=== PATIENT | female | born 1950 | race Caucasian/White ===

== ENCOUNTER 2016-09-14 00:42 | Emergency (ER) | payer OTHER ==
[2016-09-14 01:06] VITALS: BP 143/71; BMI 19.3
[2016-09-14] MEDS ORDERED: DEMEROL INJ IM ONE (01:13)
[2016-09-14] MEDS ORDERED: ZOFRAN INJ 4 MG VIAL IM ONE (01:13)
[2016-09-14] MEDS ORDERED: PHENERGAN INJ 25 MG ONE ×2 (01:14→01:15)
[2016-09-14] MEDS ORDERED: DEMEROL INJ ONE (01:14)
[2016-09-14] MEDS ORDERED: ZOFRAN INJ 4 MG VIAL ONE (01:17)
--- NOTE | 2016-09-14 01:17 | DR.GENAD ---
HPI - PCP Primary Care Physician: mark - HPI Comment HPI Comment: 66 y/o w/RA w/epigastric pain, n/v/d for the past day; dx'ed w/ H.pylori as below; unable to tolerate the medications and pain so bad, she had to come here; feels febrile w/chills; no wt loss. She has script for protonix, flagyl and cipro. She was scheduled for colonoscopy earlier this year but had to cxl d/t shingles; she has not had a fup. - Complaint/Symptoms Chief Complaint:: pt seen in ER in [place] today dx with H-pylori pt given protonix iv pt c/o abd pain - Source History Provided: Patient - Mode of Arrival Mode of Arrival: Ambulatory - Timing Onset of Chief Complaint: 09/13/16 PMH - PMH Past Medical History: Yes Past Medical History: Arthritis (rheumatoid) Past Surgical History: Yes Surgical History: Tonsillectomy - Family History History of Family Medical Conditions: Yes Family Medical History: Heart Failure - Social History Does any household member use tobacco: No Alcohol Use: None Do you use any recreational Drugs:: No Lives With: Family Lives Where: Home - infectious screening In the last 2 months have you had wt loss of >10#?: NO Have you had fever, night sweats or hemotysis?: No Have you traveled outside the country in the last 6 months?: No Isolation: Standard ROS - Review of Systems Constitutional: Chills, Fever, Malaise, Fatigue Respiratoy: No Symptoms Reported Cardiovascular: No Symptoms Reported Gastrointestinal/Abdominal: See HPI Neurological: No Symptoms Reported PE - Vital Signs Vitals: Temperature 98.4 F Pulse Rate 77 Respiratory Rate 18 Blood Pressure [Right Arm] 146/67 Blood Pressure [Left Arm] 131/63 Blood Pressure 143/71 O2 Sat by Pulse Oximetry 98 - General Limitations: No Limitations General Appearance: Alert, Other (appears uncomfortable) - Neck Neck Exam: Normal Inspection - Chest Chest Inspection: Normal Inspection - Respiratory Respiratory Exam: Normal Lung Sounds Bilat Respiratory Exam: Bilateral Clear to Auscultation - Cardiovascular Cardiovascular Exam: Regular Rate, Normal Rhythm - Abdominal Exam Abdominal Exam: Normal Inspection, Normal Bowel Sounds, Soft, Tenderness Abdominal Tenderness: Epigastrium, Moderate - Extremities Extremities Exam: Full ROM - Neurologic Neurological Exam: Alert Course - Reevaluation 1st: Improved ROR - Labs Reviewed Laboratory Results Reviewed?: Yes ([address]: wbc 9.8, h. pylori +, cmp benign) Laboratory: Amylase 46 Units/L (25-115) 09/14/16 01:32 Lipase 106 Units/L (73-393) 09/14/16 01:32 - XRAY XRAY Interpreted by: Radiologist (ct: thickening at gastric antrum; cannot r/o neoplasm/gastritis) XRAY Findings: Charles: abd series benign - Diagnosis Discharge Problem: Helicobacter pylori (H. pylori) infection, Abnormal CT of the abdomen Abdominal pain Qualifiers: Abdominal location: epigastric Qualified Code(s): R10.13 - Epigastric pain - Discharge Plan Disposition: HOME, SELF-CARE Condition: Stable Prescriptions: Hydrocodone-Acet 5 mg/325 mg [NORCO 5 MG/325 MG *] 1 tab PO Q6H PRN #12 tab PRN Reason: Pain Ondansetron [Zofran Odt] 4 mg PO Q8H PRN #12 tab PRN Reason: Nausea/Vomiting - Follow ups/Referrals Follow ups/Referrals: FRANKO ROJAS [STAFF PHYSICIAN] - 3 days - Instructions Instructions: Gastritis, Adult, [id number] Additional Instructions: stay hydrated take zofran before taking abx for H. pylori take antibiotics as previously written
[2016-09-14 01:49] LABS: AMYLASE 46 Units/L (25-115); LIPASE 106 Units/L (73-393)
[2016-09-14] MEDS ORDERED: NS 100 ML IV 100 ML IV ONE (03:35)
--- NOTE | 2016-09-14 04:22 | CT ---
CT abdomen with contrast Indication: Epigastric pain Technique: Helical images through the abdomen without IV contrast. Coronal and sagittal reformats pr ovided. Oral contrast also given. Comparison: May 15, 2016 CT. Findings: Show limited images through lower chest show scarring and dependent atelectasis. Heart siz e is prominent. Review of bone windows shows no destructive osseous lesion. Abdomen: Scattered hepatic hypodensities are compatible with cyst. The liver, spleen, pancreas and a drenal glands are normal. Vascular plaque is noted. Stomach shows wall thickening at the gastric ant rum and hyper enhancement. Remaining bowel loops appear normal. Appendix seen is normal. The kidneys are normal. Impression: 1. Wall thickening and hyper enhancement of the gastric antrum with narrowing. Gastritis/ulcer disea se is likely. Underlying neoplasm needs to be excluded. Nonemergent endoscopic followup after resolu tion of acute symptoms recommended. 2. Vascular plaque, and other incidental findings as above. Reported By:
== END 2016-09-14 04:41 | disposition home or self-care (01) ==
LOC: ER 00:42
DX: B96.81 Helicobacter pylori [H. pylori] as the cause of diseases classified elsewhere (principal); R93.5 Abnormal findings on diagnostic imaging of other abdominal regions, including retroperitoneum; R10.13 Epigastric pain
CPT/HCPCS: 36415; 74160; 82150; 83690; 96365; 96372; 99283; A4222; J2175; J2405; J2550

== ENCOUNTER 2016-10-29 11:15 | Day surgery (SDC) | payer OTHER ==
[2016-10-29] MEDS ORDERED: D5 LR 1000 ML 1,000 ML IV ONE (11:24)
[2016-10-29] MEDS ORDERED: DIPRIVAN VIAL 20 ML ONE (12:34)
[2016-10-29 12:54] VITALS: BP 103/57
== END 2016-10-29 12:55 | disposition home or self-care (01) ==
LOC: SURG1 11:15
PROVIDERS: ATTEND Internal Medicine Gastroenterology
PROC: 0DB88ZX Excision of Small Intestine, Via Natural or Artificial Opening Endoscopic, Diagnostic (ICD-10-PCS; principal; 2016-10-29 17:15)
PROC: 0DB68ZX Excision of Stomach, Via Natural or Artificial Opening Endoscopic, Diagnostic (ICD-10-PCS; principal; 2016-10-29 17:15)
PROC: 0DJ08ZZ Inspection of Upper Intestinal Tract, Via Natural or Artificial Opening Endoscopic (ICD-10-PCS; principal; 2016-10-29 17:15)
DX: R10.13 Epigastric pain (principal); R11.2 Nausea with vomiting, unspecified; R93.5 Abnormal findings on diagnostic imaging of other abdominal regions, including retroperitoneum; K25.9 Gastric ulcer, unspecified as acute or chronic, without hemorrhage or perforation; K20.8 Other esophagitis; K21.9 Gastro-esophageal reflux disease without esophagitis
CPT/HCPCS: A4217; J3490; J7120

== ENCOUNTER 2016-12-10 07:12 | Day surgery (SDC) | payer OTHER ==
[2016-12-10] MEDS ORDERED: D5 LR 1000 ML 1,000 ML IV ONE (07:36)
[2016-12-10] MEDS ORDERED: DIPRIVAN VIAL 20 ML ONE (08:49)
[2016-12-10 10:13] VITALS: BP 124/62
== END 2016-12-10 09:40 | disposition home or self-care (01) ==
LOC: SURG1 07:12
PROVIDERS: ATTEND Internal Medicine Gastroenterology
PROC: 0DJD8ZZ Inspection of Lower Intestinal Tract, Via Natural or Artificial Opening Endoscopic (ICD-10-PCS; principal; 2016-12-10 09:00)
PROC: 0DBN8ZX Excision of Sigmoid Colon, Via Natural or Artificial Opening Endoscopic, Diagnostic (ICD-10-PCS; principal; 2016-12-10 09:00)
DX: Z12.11 Encounter for screening for malignant neoplasm of colon (principal); K57.30 Diverticulosis of large intestine without perforation or abscess without bleeding; K63.5 Polyp of colon; K64.0 First degree hemorrhoids; D12.5 Benign neoplasm of sigmoid colon
CPT/HCPCS: A4217; J3490; J7120

== ENCOUNTER 2017-04-29 09:31 | Day surgery (SDC) | payer OTHER ==
[2017-04-29] MEDS ORDERED: D5 LR 1000 ML 1,000 ML IV ONE (09:42)
[2017-04-29] MEDS ORDERED: DIPRIVAN VIAL 20 ML ONE (10:54)
[2017-04-29 12:28] VITALS: BP 115/72
== END 2017-04-29 11:40 | disposition home or self-care (01) ==
LOC: SURG1 09:31
PROVIDERS: ATTEND Internal Medicine Gastroenterology
PROC: 0DB68ZX Excision of Stomach, Via Natural or Artificial Opening Endoscopic, Diagnostic (ICD-10-PCS; principal; 2017-04-29 13:45)
PROC: 0DJ08ZZ Inspection of Upper Intestinal Tract, Via Natural or Artificial Opening Endoscopic (ICD-10-PCS; principal; 2017-04-29 13:45)
PROC: 0D757ZZ Dilation of Esophagus, Via Natural or Artificial Opening (ICD-10-PCS; principal; 2017-04-29 13:45)
DX: K25.9 Gastric ulcer, unspecified as acute or chronic, without hemorrhage or perforation (principal); R10.13 Epigastric pain; K21.9 Gastro-esophageal reflux disease without esophagitis; K22.2 Esophageal obstruction; K31.89 Other diseases of stomach and duodenum; K29.60 Other gastritis without bleeding
CPT/HCPCS: A4217; J3490; J7120

== ENCOUNTER 2018-12-13 20:34 | Inpatient (IN) ==
[2018-12-13 20:53] VITALS: BMI 16.6
--- NOTE | 2018-12-13 22:08 | DR.NAUSEAF ---
HPI Time Seen Time Seen by Provider: 12/13/18 22:07 Primary Care Physician Primary Care Physician: NAVDEEP Complaints Chief Complaint Doctors Comments: pt presented for generalized abdominal pain. She reports started 2d ago and has been gradual. The pain is achy lower abd and radiates round to right flank. she reports having some n/v and chills and worse with movement. Her last BM 2d ago w/o melena. Denies any cp, sob or fever. PMH of ruptured appy with drain, diverticulitis. She reports wt loss for the past few months. Chief Complaint:: PT C/O LOWER ABD PAIN FOR 2 DAYS WITH NAUSEA AND VOMITING Reviewed Nurses Notes Reviewed: Yes Source History Provided: Patient Mode of Arrival Mode of Arrival: Ambulatory Timing Onset of Chief Complaint: 12/11/18 Context History of: Abdominal Operation (appy abscess) Quality Quality: Food Particles; denies Bilious, Bloody and Coffee Grounds Associated Signs and Symptoms Abdominal Pain Quality: Cramping Abdominal Pain Location: RLQ and LLQ Symptoms: Abdominal Pain; denies Diarrhea, Melena and Fever PMH PMH Past Medical History: Yes Past Medical History: Arthritis Past Surgical History: Yes Surgical History: Appendectomy Family History History of Family Medical Conditions: Yes Family Medical History: Heart Failure Social History Does patient currently use any type of tobacco product: Yes Type of Tobacco Use: Cigarettes Does any household member use tobacco: Yes Alcohol Use: None Do you use any recreational Drugs:: No Lives With: Family Lives Where: Home infectious screening In the last 2 months have you had wt loss of >10#?: NO Have you had fever, night sweats or hemotysis?: No Have you traveled outside the country in the last 6 months?: No Isolation: Standard ROS Review of Systems Constitutional: Chills; negative Fever, Weakness and Loss of Appetite Eyes: negative Blurred Vision ENTM: negative Nose Congestion Respiratoy: negative Short of Breath Cardiovascular: negative Chest Pain, Edema and Palpitations Gastrointestinal/Abdominal: Abdominal Pain, Constipation, Nausea and Vomiting Genitourinary: negative Dysuria Neurological: negative Numbness and Weakness Musculoskeletal: negative Muscle Pain Integumentary: negative Rash Hematologic/Lymphatic: No Symptoms Reported; negative Easy Bleeding Endocrine: Unexplained Weight Loss Psychiatric: negative Depression All Other Systems: Reviewed and Negative PE Vital Signs Vitals: Temperature 98.8 F Pulse Rate [Left Brachial] 90 Pulse Rate 90 Respiratory Rate 16 Blood Pressure [Right Arm] 146/67 Blood Pressure [Left Arm] 94/50 Blood Pressure 121/56 O2 Sat by Pulse Oximetry 95 General Limitations: No Limitations General Appearance: Alert and In No Apparent Distress Head Head Exam: Normal Inspection, Atraumatic and Normocephalic Eyes Eye exam: Normal Appearance, PERRL and EOMI; negative Scleral Icterus ENT ENT Exam: Normal Exam, Normal Oropharynx and Mucous Membranes Moist Neck Neck Exam: Normal Inspection and Full ROM Respiratory Respiratory Exam: Normal Lung Sounds Bilat Respiratory Exam: Bilateral: Clear to Auscultation Cardiovascular Cardiovascular Exam: Regular Rate, Normal Rhythm and Normal Heart Sounds Abdominal Exam Abdominal Exam: Normal Inspection, Normal Bowel Sounds and Soft; negative Distention, Tenderness and Guarding Extremities Extremities Exam: Normal Inspection, Full ROM and Normal Capillary Refill; negative Tenderness and Edema Back Back Exam: Normal Inspection and Full ROM; negative (R) CVA Tenderness and (L) CVA Tenderness Neurologic Neurological Exam: Alert, Oriented X3 and Normal Gait Psychiatric Psychiatric Exam: Normal Affect and Normal Mood Skin Skin Exam: Warm, Dry, Intact and Normal Color MDM Differential Diagnosis Differential Diagnosis: Considerations may Include:: Bowel Obstruction and Gastritis Differential Diagnosis Comment: constipation COURSE Reevaluation 1st: Improved 2nd: Unchanged (pt reports lower abdominal pain at this time. Will given IV morphine. denies any nausea/vomiting) 3rd: Improved (improved with morning. Pt now febrile. Will give tylenol and start on flagyl. awaiting return call from Dr. Barry) Consultation Called: 01:13 Call Returned: 01:17 Consultation Comments: spoke to Dr. Osborn for SBO with infiltrative mass. Instructed to keep npo and will see in the morning. Spoke to Dr. Barry for admission. Agreed with plan and accepted admission. ROR Labs Reviewed Laboratory Results Reviewed?: Yes Result Diagrams: 12/13/18 22:27 12/13/18 22:27 Laboratory: WBC 12.0 X10^3/uL (3.6-10.0) H 12/13/18 22:27 RBC 4.49 X10^6/uL (3.5-5.4) 12/13/18 22:27 Hgb 12.8 g/dL (12.0-16.0) 12/13/18 22: Hct 37.8 % (36.0-47.0) 12/13/18 22: MCV 84.1 fL (80.0-100.0) 12/13/18 22: MCH 28.5 pg (27.0-34.0) 12/13/18: MCHC 33.9 g/dL (33.0-35.0) 12/13/18 22: RDW 16.4 % (11.6-16.5) 12/13/18: Plt Count 357 X10^3/uL (150.0-450.0) 12/13/18 22: MPV 6.9 fL (7.4-11.0) L 12/13/18 22: Neut % (Auto) 81.7 % (42.0-75.0) H 12/13/18: Lymph % (Auto) 6.9 % (21.0-51.0) L 12/13/18: [place] % (Auto) 11.1 % (0.0-13.0) 12/13/18: Eos % (Auto) 0.2 % (0.9-2.9) L 12/13/18 22: Baso % (Auto) 0.1 % (0.2-1.0) L 12/13/18: Neut # (Auto) 9.8 x10^3/uL (2.2-4.8) H 12/13/18 22: Lymph # (Auto) 0.8 X10^3/uL (1.3-2.9) L 12/13/18 22:27 [place] # (Auto) 1.3 x10^3/uL (0.3-0.8) H 12/13/18 22: Eos # (Auto) 0.0 x10^3/uL (0.0-0.2) 12/13/18: Baso # (Auto) 0.0 X10^3/uL (0.0-0.1) 12/13/18 22: Absolute Nucleated RBC 0.0 /100WBC 12/13/18 22: Sodium 129 mmol/L (136-145) L 12/13/18 22: Corrected Sodium TNP 12/13/18 22: Potassium 4.4 mmol/L (3.5-5.1) 12/13/18 22:27 Chloride 90 mmol/L (98-107) L 12/13/18 22:27 Carbon Dioxide 26.3 mmol/L (21-32) 12/13/18 22:27 BUN 23 mg/dL (7-18) H 12/13/18 22:27 Creatinine 0.77 mg/dL (0.55-1.02) 12/13/18 22:27 Est GFR (MDRD) Af Amer > 60 (>60) 12/13/18 22:27 Est GFR (MDRD) Non-Af > 60 (>60) 12/13/18 22:27 Glucose 105 mg/dL (65-99) H 12/13/18 22:27 Calcium 9.5 mg/dL (8.5-10.1) 12/13/18 22:27 Specimen Type Clean catch urine 12/13/18 22:45 Urine Color Yellow (YELLOW) 12/13/18 22:45 Urine Appearance Slightly hazy (CLEAR) 12/13/18 22:45 Urine pH 5.0 (5.0 - 8.0) 12/13/18 22:45 Ur Specific [place] 1.020 (1.000-1.030) 12/13/18 22:45 Urine Protein 1+ (NEGATIVE) 12/13/18 22:45 Urine Glucose (UA) Negative (NEGATIVE) 12/13/18 22:45 Urine Ketones 2+ (NEGATIVE) 12/13/18 22:45 Urine Occult Blood 5+ (NEGATIVE) 12/13/18 22:45 Urine Nitrite Positive (NEGATIVE) 12/13/18 22:45 Urine Bilirubin Negative (NEGATIVE) 12/13/18 22:45 Urine Urobilinogen Normal (NORMAL) 12/13/18 22:45 Ur Leukocyte Esterase 1+ (NEGATIVE) 12/13/18 22:45 Urine RBC 10-20 /HPF (NONE SEEN) 12/13/18 22:45 Urine WBC 3-5 /HPF (NONE SEEN) 12/13/18 22:45 Ur Squamous Epith Cells Rare /HPF (NEGATIVE) 12/13/18 22:45 Urine Bacteria 2+ /HPF (NEGATIVE) 12/13/18 22:45 Urine Yeast Rare /HPF (NEGATIVE) 12/13/18 22:45 Ur Culture Indicated? Yes/culture set up 12/13/18 22:45 Other Results Comments: WBC 12K with left shift CT a/p: SBO w/ TZ located at the large-walled infiltrative and aneurysmal mass within the small bowel of XRAY XRAY Interpreted by: Radiologist XRAY Findings: KUB dilated loops of bowel. Opioid Opioid Risk Tool Total: 0 Total Score Risk Category: Low Risk Copyright: [employer] predicting aberrant behaviors Diagnosis Discharge Problem: Small bowel obstruction, Hyponatremia Leukocytosis Qualifiers: Leukocytosis type: unspecified Qualified Code(s): D72.829 - Elevated white blood cell count, unspecified Instructions Forms: Excuse From Work
[2018-12-13] MEDS ORDERED: PHENERGAN INJ 25 MG IM ONE ×2 (22:17→22:38)
[2018-12-13 22:36] LABS: BASOPHILS % (AUTO) 0.1 % (0.2-1.0); EOSINOPHILS % (AUTO) 0.2 % (0.9-2.9); HEMATOCRIT 37.8 % (36.0-47.0); HEMOGLOBIN 12.8 g/dL (12.0-16.0); LYMPHOCYTES # (AUTO) 0.8 X10^3/uL (1.3-2.9); LYMPHOCYTES % (AUTO) 6.9 % (21.0-51.0); MEAN CORPUSCULAR HEMOGLOBIN 28.5 pg (27.0-34.0); MEAN CORPUSCULAR HGB CONC 33.9 g/dL (33.0-35.0); MEAN CORPUSCULAR VOLUME 84.1 fL (80.0-100.0); MEAN PLATELET VOLUME 6.9 fL (7.4-11.0); MONOCYTES # (AUTO) 1.3 x10^3/uL (0.3-0.8); MONOCYTES % (AUTO) 11.1 % (0.0-13.0); NEUTROPHILS # (AUTO) 9.8 x10^3/uL (2.2-4.8); NEUTROPHILS % (AUTO) 81.7 % (42.0-75.0); PLATELET COUNT 357 X10^3/uL (150.0-450.0); RED BLOOD COUNT 4.49 X10^6/uL (3.5-5.4); RED CELL DISTRIBUTION WIDTH 16.4 % (11.6-16.5)
[2018-12-13 22:39] LABS: BLOOD UREA NITROGEN 23 mg/dL (7-18); CALCIUM 9.5 mg/dL (8.5-10.1); CARBON DIOXIDE 26.3 mmol/L (21-32); CHLORIDE 90 mmol/L (98-107); CREATININE 0.77 mg/dL (0.55-1.02); SODIUM 129 mmol/L (136-145); eGFR NON BLACK RACES > 60 (>60)
[2018-12-13 23:00] LABS: BILIRUBIN,URINE NEGATIVE (NEGATIVE); BLOOD/HEMOGLOBIN,URINE 5+ (NEGATIVE); GLUCOSE, URINE NEGATIVE (NEGATIVE); KETONES,URINE 2+ (NEGATIVE); LEUKOCYTE ESTERASE ,URINE 1+ (NEGATIVE); NITRITES,URINE POSITIVE (NEGATIVE); PROTEIN,URINE 1+ (NEGATIVE); UROBILINOGEN,URINE NORMAL (NORMAL)
[2018-12-13 23:11] LABS: APPEARANCE,URINE SLIGHTLY HAZY (CLEAR); COLOR,URINE YELLOW (YELLOW)
[2018-12-13 23:12] LABS: BACTERIA,URINE 2+ /HPF (NEGATIVE); SQUAMOUS EPITHELIAL CELL,UR RARE /HPF (NEGATIVE); YEAST,URINE RARE /HPF (NEGATIVE)
[2018-12-13] MEDS ORDERED: NS 1000 ML 1,000 ML IV ONE (23:20)
[2018-12-13] MEDS ORDERED: NS 1000 ML 1,000 ML ONE (23:22)
[2018-12-13] MEDS ORDERED: NS 100 ML IV 100 ML ONE (23:46)
[2018-12-14] MEDS ORDERED: METHOTREXATE SODIUM PO SCH (01:30)
[2018-12-14] MEDS ORDERED: TYLENOL 325 MG TAB PO ONE ×2 (01:49→01:50)
[2018-12-14] MEDS ORDERED: LR 1000 ML IV 1,000 ML IV SCH (02:00)
[2018-12-14] MEDS: MORPHINE SULFATE INJ 2 MG INJ IVP PRN ×2 (02:18→21:31)
[2018-12-14] MEDS: FLAGYL IV PREMIX 500 MG BAG 500 MG/100 ML BAG IV SCH ×4 (02:21→21:30)
[2018-12-14] MEDS: ZOFRAN INJ 4 MG VIAL IVP PRN ×2 (02:21→21:31)
[2018-12-14 07:12] LABS: BASOPHILS % (AUTO) 0.2 % (0.2-1.0); EOSINOPHILS # (AUTO) 0.1 x10^3/uL (0.0-0.2); EOSINOPHILS % (AUTO) 1.2 % (0.9-2.9); HEMATOCRIT 33.1 % (36.0-47.0); HEMOGLOBIN 11.3 g/dL (12.0-16.0); LYMPHOCYTES # (AUTO) 1.3 X10^3/uL (1.3-2.9); LYMPHOCYTES % (AUTO) 16.2 % (21.0-51.0); MEAN CORPUSCULAR HEMOGLOBIN 28.5 pg (27.0-34.0); MEAN CORPUSCULAR HGB CONC 34.1 g/dL (33.0-35.0); MEAN CORPUSCULAR VOLUME 83.7 fL (80.0-100.0); MONOCYTES # (AUTO) 1.3 x10^3/uL (0.3-0.8); NEUTROPHILS # (AUTO) 5.3 x10^3/uL (2.2-4.8); NEUTROPHILS % (AUTO) 66.4 % (42.0-75.0); PLATELET COUNT 300 X10^3/uL (150.0-450.0); RED BLOOD COUNT 3.96 X10^6/uL (3.5-5.4); RED CELL DISTRIBUTION WIDTH 16.3 % (11.6-16.5)
[2018-12-14 07:14] LABS: BLOOD UREA NITROGEN 18 mg/dL (7-18); CALCIUM 8.6 mg/dL (8.5-10.1); CARBON DIOXIDE 25.3 mmol/L (21-32); CHLORIDE 99 mmol/L (98-107); CREATININE 0.67 mg/dL (0.55-1.02); SODIUM 135 mmol/L (136-145); eGFR NON BLACK RACES > 60 (>60)
[2018-12-14] MEDS ORDERED: LEXAPRO ONE (08:41)
[2018-12-14] MEDS ORDERED: ESCITALOPRAM OXALATE 5 MG PO SCH (09:00)
[2018-12-14] MEDS: LEXAPRO PO SCH ×2 (09:04→09:31)
[2018-12-14] MEDS: FOLIC ACID TAB 1 MG PO SCH ×2 (09:04→09:31)
[2018-12-14] MEDS: OSCAL+D or CALTRATE+D PO SCH ×2 (09:04→09:31)
[2018-12-14] MEDS ORDERED: XYLOCAINE 1 % (PLAIN) ONE (09:15)
[2018-12-14] MEDS ORDERED: DIPRIVAN VIAL ONE (09:15)
[2018-12-14] MEDS: NADOLOL PO SCH (09:29)
[2018-12-14] MEDS ORDERED: PHARMACY CONSULT - DOSE _____ XX SCH (10:00)
[2018-12-14] MEDS: CIPRO IV 400 MG PREMIX* 400 MG/200 ML IV.SOLN. IV SCH ×2 (12:34→21:30)
[2018-12-14] MEDS: LR 1000 ML IV 1,000 ML IV SCH ×3 (12:46→21:30)
[2018-12-14] MEDS ORDERED: XYLOCAINE-MPF 1% ONE (13:03)
[2018-12-14] MEDS ORDERED: DIPRIVAN VIAL 40 ML ONE (13:03)
[2018-12-14] MEDS ORDERED: STERILE WATER IRRIGATION ONE (14:12)
[2018-12-14] MEDS: DIFLUCAN 200 MG IV PREMIX* 200 MG/100 ML BAG IV SCH (14:47)
[2018-12-14] MEDS: PROTONIX INJ 40 MG VIAL IVP SCH (21:30)
--- NOTE | 2018-12-14 22:14 | DR.H&P ---
H&P - History & Physical for Day of: H&P Date: 12/14/18 - Chief Complaint Chief Complaint: ABDOMINAL PAIN - History of Present Illness History of Present Illness: IS A 68 YEAR OLD PATIENT OF OURS WHO PRESENTED TO THE HOSPITAL WITH REPORTS OF GENERALIZED ABDOMINAL PAIN. SHE REPORTS THAT PAIN STARTED APPROXIMATELY TWO DAYS AGO AND HAS PROGRESSIVELY GOTTEN WORSE. PAIN IS LOCATED IN THE LOWER ABDOMEN AND RAIDATES AROUND TO THE RIGHT FLANK. SHE ALSO REPORTS SOME NAUSEA, VOMITING, AND CHILLS. HER LAST BOWEL MOVEMENT WAS TWO DAYS AGO. PAST MEDICAL HISTORY IS SIGNIFICANT FOR A RUPTURED APPENDIX AND DIVERTICULITIS. SHE REPORTS WEIGHT LOSS WITHIN THE PAST FEW MONTHS. ON ARRIVAL, VITALS WERE 98.2-90-18-99%-121/56. LABS WERE OBTAINED. ABNORMAL LAB VALUES INCLUDE THE FOLLOWING: WBC 12.0, SODIUM 129, CHLORIDE 90, BUN 23, GLUCOSE 105. URINALYSIS REVEALED: WBC 3-5, RBC 10-20, LEUKOCYTES 1+, BACTERIA 2+, YEAST RARE, NITRITE POSITIVE. BLOOD AND URINE CLUTURES PENDING. AN ABDOMEN/PELVIS CT WAS OBTAINED AND REVEALED: SBO WITH TRANSITION ZONE LOCATED AT A LARGE THICK- WALLED INFILTRATIVE AND ANEURYSMAL MASS WITHIN THE SMALL BOWEL OF THE CENTRAL PELVIS, HIGHTLY CONCERNING FOR NEOPLASM. APPEARANCE MAY BE SEEN WITH SMALL BOWEL LYMPHOMA. NO INTRAPERITONEAL FREE AIR IS IDENTIFIED. WALL THICKENING OF THE DISTAL GASTRIC ANTRUM AND SIGMOID COLON MAY REFLECT ADDITIONAL FOCI OF LYMPHOMA. SHE WAS ADMITTED TO THE HOSPITAL FOR FURTHER EVALUATION AND TREATMENT OF SBO WITH ABDOMINAL MASS. SHE WAS STARTED ON LR AT 125ML/HR, IV DIFUCAN, IV CIPRO, AND IV FLAGYL. WE WILL RESUME HOME MEDS. WE PLAN TO CONSULT GENERAL SURGERY. OTHERWISE, WE WILL FOLLOW-UP WITH AM LABS AND CONTINUE TO MONITOR. - Past Medical History Past Medical History: Arthritis - Past Surgical History Surgical History: Appendectomy - Family History Family Medical History: Diabetes Mellitus, Heart Failure, Sudden Cardiac - Social History Does patient currently use any type of tobacco product: Yes Have you used tobacco products in the last 12 months: Yes Type of Tobacco Use: Cigarettes How many years tobacco product used: 40 Does any household member use tobacco: Yes Alcohol Use: None Drug Use: None Prescription drug monitoring program results: PDMP was not reviewed - Medications Home Medications: Penicillins Allergy (Verified 12/14/18 05:11) - Review of Systems Constitutional: See HPI, Chills, Other (WEIGHT LOSS ) Eyes: No Symptoms Reported ENT: No Symptoms Reported Respiratory: No Symptoms Reported Cardiovascular: No Symptoms Reported Gastrointestinal: See HPI, Nausea, Vomiting, Abdominal Pain Genitourinary: No Symptoms Reported Musculoskeletal: No Symptoms Reported Skin: No Symptoms Reported Neurological: Weakness - Physical Exam Vital Signs: Temperature 98.9 F Pulse Rate [Left Brachial] 77 Pulse Rate 90 Respiratory Rate 18 Blood Pressure [Right Arm] 146/67 Blood Pressure [Left Arm] 107/53 Blood Pressure 121/56 O2 Sat by Pulse Oximetry 97 Oriented: Normal Eyes: Normal Ear: Normal Nose: Normal Throat: Normal Respiratory: Diminished Throughout Cardiovascular: Normal : Normal Auscultation: Bowel Sounds: Decreased Palpation: Normal Tenderness: Diffuse, Moderate. negative: Rebound, Guarding, Rigidity Skin: Decreased Turgur Musculoskeletal: Normal Psychiatric: Normal Mood Description: Calm Affect: Normal Speech Pattern: Clear - Assessment/Plan (1) Small bowel obstruction Status: Acute Plan: ADMIT, NPO, IV ANTIBIOTICS, SURGICAL CONSULT, CONTINUE TO MONITOR (2) Abdominal mass Qualifiers: Abdominal location: unspecified location Qualified Code(s): R19.00 - Intra- abdominal and pelvic swelling, mass and lump, unspecified site Status: Acute Plan: IV ANTIBIOTICS, IV FLUIDS, SURGICAL CONSULT, CONTINUE TO MONITOR (3) Abdominal pain Qualifiers: Abdominal location: epigastric Qualified Code(s): R10.13 - Epigastric pain Status: Acute (4) Urinary tract infection Qualifiers: Urinary tract infection type: acute cystitis Hematuria presence: with hematuria Qualified Code(s): N30.01 - Acute cystitis with hematuria Status: Acute Plan: IV CIPRO, IV FLUIDS, CONTINUE TO MONITOR - Allergies Allergies/Adverse Reactions: Allergies Allergy/AdvReac Type Severity Reaction Status Date / Time Penicillins Allergy Verified 12/14/18 05:11
[2018-12-15] MEDS: LR 1000 ML IV 1,000 ML IV SCH ×4 (03:44→20:27)
[2018-12-15] MEDS: FLAGYL IV PREMIX 500 MG BAG 500 MG/100 ML BAG IV SCH ×2 (03:44→09:48)
[2018-12-15 05:18] LABS: BASOPHILS % (AUTO) 0.3 % (0.2-1.0); EOSINOPHILS # (AUTO) 0.2 x10^3/uL (0.0-0.2); EOSINOPHILS % (AUTO) 3.6 % (0.9-2.9); HEMATOCRIT 30.5 % (36.0-47.0); HEMOGLOBIN 10.2 g/dL (12.0-16.0); LYMPHOCYTES # (AUTO) 1.3 X10^3/uL (1.3-2.9); LYMPHOCYTES % (AUTO) 22.4 % (21.0-51.0); MEAN CORPUSCULAR HEMOGLOBIN 28.4 pg (27.0-34.0); MEAN CORPUSCULAR HGB CONC 33.6 g/dL (33.0-35.0); MEAN CORPUSCULAR VOLUME 84.6 fL (80.0-100.0); MEAN PLATELET VOLUME 7.3 fL (7.4-11.0); MONOCYTES # (AUTO) 0.9 x10^3/uL (0.3-0.8); MONOCYTES % (AUTO) 14.7 % (0.0-13.0); NEUTROPHILS # (AUTO) 3.5 x10^3/uL (2.2-4.8); PLATELET COUNT 278 X10^3/uL (150.0-450.0); RED CELL DISTRIBUTION WIDTH 16.6 % (11.6-16.5); WHITE BLOOD COUNT 5.9 X10^3/uL (3.6-10.0)
[2018-12-15 05:29] LABS: ALANINE AMINOTRANSFERASE < 6 Units/L (12-78); ALBUMIN 2.3 g/dL (3.4-5.0); ALKALINE PHOSPHATASE 73 Units/L (46-116); ASPARTATE AMINO TRANSFERASE 10 Units/L (15-37); BLOOD UREA NITROGEN 8 mg/dL (7-18); CALCIUM 8.2 mg/dL (8.5-10.1); CARBON DIOXIDE 25.6 mmol/L (21-32); CHLORIDE 103 mmol/L (98-107); COR CA(FOR HYPOALB) 9.6 mg/dL (8.5-10.1); SODIUM 140 mmol/L (136-145); eGFR NON BLACK RACES > 60 (>60)
[2018-12-15] MEDS ORDERED: POTASSIUM CHL 60 MEQ/NS 0.45% 500 ML IV PRN (06:18)
[2018-12-15] MEDS ORDERED: POTASSIUM CHL 40 MEQ/NS 0.45% 500 ML IV PRN (06:18)
[2018-12-15] MEDS ORDERED: POTASSIUM CHLORIDE LIQ 20 MEQ UDC PO PRN (06:18)
[2018-12-15] MEDS ORDERED: MICRO K EXTEN CAP 10 MEQ PO PRN (06:18)
[2018-12-15] MEDS ORDERED: K-RIDER 10 MEQ/NS 100 ML 10 MEQ/100 ML BAG IV ONE (06:38)
[2018-12-15] MEDS ORDERED: MAGNESIUM SULFATE 1 GRAM/100 mL PREMIX 1 G/100 ML BAG IV ONE (06:38)
[2018-12-15] MEDS: MAGNESIUM SULFATE 1 GRAM/100 mL PREMIX 1 GM/100 ML BAG IV PRN ×2 (06:40→15:40)
[2018-12-15] MEDS: K-RIDER 10 MEQ/NS 100 ML 10 MEQ/100 ML BAG IV PRN ×2 (06:40→16:28)
[2018-12-15] MEDS ORDERED: DIPRIVAN VIAL 20 ML ONE (07:40)
--- NOTE | 2018-12-15 08:29 | DR.PROGNOT ---
Hospital Progress Notes - Progress Note for Day of: Progress Note Date: 12/15/18 - Chief Complaint Chief Complaint: colonoscopy with Bx was done today . has moderate narrowing of the sigmoid colon with diverticulitis . no neoplasm or IBD . several Bx's were obtained from the sigmoid . EGD showed large distal gastric ulcer . no nausea or vomiting today . - Past Medical Family Social History Past Med/Fam/Surg Hx: No changes since H&P Allergies: Allergies Penicillins Allergy (Verified 12/14/18 05:11) - Review Of Systems ROS: No change since H&P - Vital Signs Vital Signs: Temperature 98.8 F Pulse Rate [Left Brachial] 73 Pulse Rate 90 Respiratory Rate 18 Blood Pressure [Right Arm] 146/67 Blood Pressure [Left Arm] 113/57 Blood Pressure 121/56 O2 Sat by Pulse Oximetry 96 - Physical Exam Oriented: Normal Eyes: Normal Ear: Normal Nose: Normal Throat: Normal Cardiovascular: Normal : Normal GI:Auscultation: Normal GI:Palpation: Other GI: Tenderness: Diffuse (soft abdomen , full with moderate tenderness , BS+), RLQ, LLQ, Moderate Speech Pattern: Clear, Appropriate - Laboratory and Diagnostics Result Diagrams: 12/15/18 05:04 12/15/18 05:04 Labs: 12/13/18 22:45 Urine,Clean Catch Urine Culture - Preliminary Laboratory WBC 5.9 X10^3/uL (3.6-10.0) 12/15/18 05:04 RBC 3.60 X10^6/uL (3.5-5.4) 12/15/18 05:04 Hgb 10.2 g/dL (12.0-16.0) L 12/15/18 05:04 Hct 30.5 % (36.0-47.0) L 12/15/18 05:04 MCV 84.6 fL (80.0-100.0) 12/15/18 05:04 MCH 28.4 pg (27.0-34.0) 12/15/18 05:04 MCHC 33.6 g/dL (33.0-35.0) 12/15/18 05:04 RDW 16.6 % (11.6-16.5) H 12/15/18 05:04 Plt Count 278 X10^3/uL (150.0-450.0) 12/15/18 05:04 MPV 7.3 fL (7.4-11.0) L 12/15/18 05:04 Neut % (Auto) 59.0 % (42.0-75.0) 12/15/18 05:04 Lymph % (Auto) 22.4 % (21.0-51.0) 12/15/18 05:04 [place] % (Auto) 14.7 % (0.0-13.0) H 12/15/18 05:04 Eos % (Auto) 3.6 % (0.9-2.9) H 12/15/18 05:04 Baso % (Auto) 0.3 % (0.2-1.0) 12/15/18 05:04 Neut # (Auto) 3.5 x10^3/uL (2.2-4.8) 12/15/18 05:04 Lymph # (Auto) 1.3 X10^3/uL (1.3-2.9) 12/15/18 05:04 [place] # (Auto) 0.9 x10^3/uL (0.3-0.8) H 12/15/18 05:04 Eos # (Auto) 0.2 x10^3/uL (0.0-0.2) 12/15/18 05:04 Baso # (Auto) 0.0 X10^3/uL (0.0-0.1) 12/15/18 05:04 Absolute Nucleated RBC 0.0 /100WBC 12/15/18 05:04 Sodium 140 mmol/L (136-145) 12/15/18 05:04 Corrected Sodium TNP 12/15/18 05:04 Potassium 3.2 mmol/L (3.5-5.1) L 12/15/18 05:04 Chloride 103 mmol/L (98-107) 12/15/18 05:04 Carbon Dioxide 25.6 mmol/L (21-32) 12/15/18 05:04 BUN 8 mg/dL (7-18) 12/15/18 05:04 Creatinine 0.60 mg/dL (0.55-1.02) 12/15/18 05:04 Est GFR (MDRD) Af Amer > 60 (>60) 12/15/18 05:04 Est GFR (MDRD) Non-Af > 60 (>60) 12/15/18 05:04 Glucose 106 mg/dL (65-99) H 12/15/18 05:04 Calcium 8.2 mg/dL (8.5-10.1) L 12/15/18 05:04 Corrected Calcium 9.6 mg/dL (8.5-10.1) 12/15/18 05:04 Magnesium 1.5 mg/dL (1.7-2.9) L 12/15/18 05:04 Total Bilirubin 0.10 mg/dL (0.2-1.0) L 12/15/18 05:04 AST 10 Units/L (15-37) L 12/15/18 05:04 ALT < 6 Units/L (12-78) L 12/15/18 05:04 Alkaline Phosphatase 73 Units/L (46-116) 12/15/18 05:04 Total Protein 6.0 g/dL (6.4-8.2) L 12/15/18 05:04 Albumin 2.3 g/dL (3.4-5.0) L 12/15/18 05:04 Globulin 3.7 g/dL (2.5-4.5) 12/15/18 05:04 Albumin/Globulin Ratio 0.6 Ratio (1.1-2.1) L 12/15/18 05:04 Specimen Type Clean catch urine 12/13/18 22:45 Urine Color Yellow (YELLOW) 12/13/18 22:45 Urine Appearance Slightly hazy (CLEAR) 12/13/18 22:45 Urine pH 5.0 (5.0 - 8.0) 12/13/18 22:45 Ur Specific [place] 1.020 (1.000-1.030) 12/13/18 22:45 Urine Protein 1+ (NEGATIVE) 12/13/18 22:45 Urine Glucose (UA) Negative (NEGATIVE) 12/13/18 22:45 Urine Ketones 2+ (NEGATIVE) 12/13/18 22:45 Urine Occult Blood 5+ (NEGATIVE) 12/13/18 22:45 Urine Nitrite Positive (NEGATIVE) 12/13/18 22:45 Urine Bilirubin Negative (NEGATIVE) 12/13/18 22:45 Urine Urobilinogen Normal (NORMAL) 12/13/18 22:45 Ur Leukocyte Esterase 1+ (NEGATIVE) 12/13/18 22:45 Urine RBC 10-20 /HPF (NONE SEEN) 12/13/18 22:45 Urine WBC 3-5 /HPF (NONE SEEN) 12/13/18 22:45 Ur Squamous Epith Cells Rare /HPF (NEGATIVE) 12/13/18 22:45 Urine Bacteria 2+ /HPF (NEGATIVE) 12/13/18 22:45 Urine Yeast Rare /HPF (NEGATIVE) 12/13/18 22:45 Ur Culture Indicated? Yes/culture set up 12/13/18 22:45 Tissue Pathology To follow 12/14/18 13:13 - Assessment and Plan 1: large distal gastric ulcer . recurrent diverticulitis with narrowing of sigmoid colon . partial SBO with mass of small bowel r/o neoplasm . if Pt is tolerating liquid diet it would be better to treat the ulcer and the diverticulitis before the abdominal surgery . will continue IV ATB , Protonix and Carafate , IVF for few days before surgery - Problem Patient Problems: Patient Problems Small bowel obstruction (Acute) K56.609 Leukocytosis (Acute) D72.829 Hyponatremia (Acute) E87.1
[2018-12-15] MEDS ORDERED: LEXAPRO ONE (08:41)
[2018-12-15] MEDS ORDERED: DIPRIVAN VIAL ONE (09:04)
[2018-12-15] MEDS: CIPRO IV 400 MG PREMIX* 400 MG/200 ML IV.SOLN. IV SCH ×2 (09:47→20:27)
[2018-12-15] MEDS: DIFLUCAN 200 MG IV PREMIX* 200 MG/100 ML BAG IV SCH (09:48)
[2018-12-15] MEDS: VITAMIN D3 PO SCH (09:49)
[2018-12-15] MEDS: OSCAL+D or CALTRATE+D PO SCH (09:49)
[2018-12-15] MEDS: PROTONIX INJ 40 MG VIAL IVP SCH ×2 (09:49→20:27)
[2018-12-15] MEDS: FOLIC ACID TAB 1 MG PO SCH (09:49)
[2018-12-15] MEDS: LEXAPRO PO SCH ×2 (09:52→10:55)
[2018-12-15] MEDS ORDERED: PROCALAMINE 3 % 1,000 ML IV SCH (10:00)
[2018-12-15] MEDS: CARAFATE PO SCH ×3 (11:18→20:27)
[2018-12-15] MEDS ORDERED: STERILE WATER IRRIGATION ONE (12:17)
[2018-12-15] MEDS: FLAGYL TAB 500 MG PO SCH ×2 (16:01→20:27)
[2018-12-15] MEDS: ALBUMIN HUMAN 25%- 100 ML 100 ML IV SCH (16:04)
[2018-12-15] MEDS: K-DUR TAB 20 MEQ PO PRN (16:20)
[2018-12-15] MEDS: NADOLOL PO SCH (17:52)
[2018-12-15] MEDS: ZOFRAN INJ 4 MG VIAL IVP PRN (20:27)
[2018-12-15] MEDS: MORPHINE SULFATE INJ 2 MG INJ IVP PRN (22:06)
[2018-12-16] MEDS: FLAGYL TAB 500 MG PO SCH ×4 (02:19→21:39)
[2018-12-16] MEDS: LR 1000 ML IV 1,000 ML IV SCH ×3 (02:20→21:38)
[2018-12-16 05:14] LABS: BASOPHILS % (AUTO) 0.3 % (0.2-1.0); EOSINOPHILS # (AUTO) 0.1 x10^3/uL (0.0-0.2); EOSINOPHILS % (AUTO) 2.3 % (0.9-2.9); HEMATOCRIT 31.1 % (36.0-47.0); HEMOGLOBIN 10.4 g/dL (12.0-16.0); LYMPHOCYTES # (AUTO) 1.2 X10^3/uL (1.3-2.9); LYMPHOCYTES % (AUTO) 20.1 % (21.0-51.0); MEAN CORPUSCULAR HEMOGLOBIN 28.6 pg (27.0-34.0); MEAN CORPUSCULAR HGB CONC 33.5 g/dL (33.0-35.0); MEAN CORPUSCULAR VOLUME 85.5 fL (80.0-100.0); MEAN PLATELET VOLUME 7.6 fL (7.4-11.0); MONOCYTES # (AUTO) 0.9 x10^3/uL (0.3-0.8); MONOCYTES % (AUTO) 15.3 % (0.0-13.0); NEUTROPHILS # (AUTO) 3.8 x10^3/uL (2.2-4.8); PLATELET COUNT 289 X10^3/uL (150.0-450.0); RED BLOOD COUNT 3.64 X10^6/uL (3.5-5.4); RED CELL DISTRIBUTION WIDTH 16.2 % (11.6-16.5); WHITE BLOOD COUNT 6.2 X10^3/uL (3.6-10.0)
[2018-12-16 05:25] LABS: ALANINE AMINOTRANSFERASE < 6 Units/L (12-78); ALBUMIN 2.7 g/dL (3.4-5.0); ALKALINE PHOSPHATASE 74 Units/L (46-116); ASPARTATE AMINO TRANSFERASE 10 Units/L (15-37); BLOOD UREA NITROGEN 4 mg/dL (7-18); CALCIUM 8.4 mg/dL (8.5-10.1); CARBON DIOXIDE 26.2 mmol/L (21-32); CHLORIDE 104 mmol/L (98-107); COR CA(FOR HYPOALB) 9.4 mg/dL (8.5-10.1); COR NA(FOR HYPERGLY) 141 mmol/L (136-145); CREATININE 0.67 mg/dL (0.55-1.02); MAGNESIUM 1.8 mg/dL (1.7-2.9); SODIUM 140 mmol/L (136-145); TOTAL PROTEIN 6.4 g/dL (6.4-8.2); eGFR NON BLACK RACES > 60 (>60)
[2018-12-16] MEDS: CARAFATE PO SCH ×4 (05:46→21:39)
[2018-12-16] MEDS: CIPRO IV 400 MG PREMIX* 400 MG/200 ML IV.SOLN. IV SCH ×2 (08:00→21:39)
[2018-12-16] MEDS: PROTONIX INJ 40 MG VIAL IVP SCH ×2 (08:01→21:39)
--- NOTE | 2018-12-16 08:49 | PCM.PROG ---
Progress Note - Progress Note for Day of Date of Exam: 12/15/18 - Subjective Subjective: IS BEING TREATED FOR A SMALL BOWEL OBSTRUCTION, ABDOMINAL MASS, AND A URINARY TRACT INFECTION. TODAY, SHE IS ALERT AND ORIENTED, LYING IN BED ON MORNING ROUNDS. SHE CONTINUES WITH COMPLAINTS OF ABDOMINAL PAIN AND ALSO REPORTS GENERALIZED WEAKNESS. ON EXAMINATION, HEART IS REGULAR IN RATE AND RHYTHM. BILATERAL LUNGS ARE NOTED WITH DIMINISHED LUNG SOUNDS THROUGHOUT. ABDOMEN IS ROUND, SOFT, AND NOTED WITH DIFFUSE TENDERNESS TO PALPATION. HER VITALS THIS MORNING ARE: 98.0-78-91-20-115/50. LABS WERE OBTAINED. ABNORMAL LAB VALUES INCLUDE THE FOLLOWIN.2, HCT 30.5, POTASSIUM 3.2, GLUCOSE 106, CALCIUM 8.2, MAGNESIUM 1.5, TOTAL BILI 0.10, AST 10, ALT <6, TOTAL PROTEIN 6.0, ALBUMIN 2.3. BLOOD CULTURES ARE PENDING. URINE CULTURE IS POSITIVE FOR GROWTH OF KLEBSIELLA PNEUMONIAE. PERFORMED AN EGD. A LARGE PREPYLORIC ULCER WAS FOUND. HE PERFORMED A COLONOSCOPY THIS MORNING AND FOUND MODERATE STRICTURE OF THE SIGMOID COLON SECONDARY TO RECURRENT DIVERTICULITIS. NO EVIDENCE OF NEOPLASM UP TO THE MID TRANSVERSE COLON. HEMORRHOIDS ALSO NOTED. A KUB WAS OBTAINED THIS MORNING AND REVEALED: GASEOUS DISTENTION OF SMALL BOWEL LOOPS WITH AIR PRESENT THROUGHOUT THE COLON. FINDINGS FAVOR A PARTIAL SMALL BOWEL OBSTRUCTION OR SMALL BOWEL ILEUS. WE WILL CONTINUE WITH HER IV FLUIDS AND IV ANTIBIOTICS TODAY. WE WILL REPLACE HER MAGNESIUM AND POTASSIUM PER THE PROTOCOL. OTHERWISE, WE PLAN TO FOLLOW UP WITH AM LABS AND CONTINUE TO MONITOR. - Past Medical Family Social History Past Med/Fam/Surg Hx: No changes since H&P Allergies: Allergies Penicillins Allergy (Verified 12/14/18 05:11) - Review of Systems ROS: No change since H&P - Vital Signs and I&O's Vital Signs: Temperature 98.2 F Pulse Rate [Left Brachial] 76 Pulse Rate 90 Respiratory Rate 20 Blood Pressure [Right Arm] 124/59 Blood Pressure [Left Arm] 103/59 Blood Pressure 121/56 O2 Sat by Pulse Oximetry 96 Intake and Output: Intake & Output 12/13/18 12/14/18 12/15/18 12/16/18 11:59 11:59 11:59 11:59 Intake Total 0 / 0 3790 / 3790 5494 / 5494 Balance 0 / 0 3790 / 3790 5494 / 5494 - Physical Exam Oriented: Normal Eyes: Normal Ear: Normal Nose: Normal Throat: Normal Cardiovascular: Normal : Normal Auscultation: Bowel Sounds: Decreased Palpation: Normal Tenderness: Diffuse, Moderate. negative: Rebound, Guarding, Rigidity Skin: Decreased Turgur Musculoskeletal: Normal Psychiatric: Normal Mood Description: Calm Affect: Normal Speech Pattern: Clear, Appropriate - Laboratory and Diagnostics Result Diagrams: 12/16/18 04:38 12/16/18 04:38 Labs: 12/13/18 22:45 Urine,Clean Catch Urine Culture - Final Klebsiella Pneumoniae Laboratory WBC 6.2 X10^3/uL (3.6-10.0) 12/16/18 04:38 RBC 3.64 X10^6/uL (3.5-5.4) 12/16/18 04:38 Hgb 10.4 g/dL (12.0-16.0) L 12/16/18 04:38 Hct 31.1 % (36.0-47.0) L 12/16/18 04:38 MCV 85.5 fL (80.0-100.0) 12/16/18 04:38 MCH 28.6 pg (27.0-34.0) 12/16/18 04:38 MCHC 33.5 g/dL (33.0-35.0) 12/16/18 04:38 RDW 16.2 % (11.6-16.5) 12/16/18 04:38 Plt Count 289 X10^3/uL (150.0-450.0) 12/16/18 04:38 MPV 7.6 fL (7.4-11.0) 12/16/18 04:38 Neut % (Auto) 62.0 % (42.0-75.0) 12/16/18 04:38 Lymph % (Auto) 20.1 % (21.0-51.0) L 12/16/18 04:38 [place] % (Auto) 15.3 % (0.0-13.0) H 12/16/18 04:38 Eos % (Auto) 2.3 % (0.9-2.9) 12/16/18 04:38 Baso % (Auto) 0.3 % (0.2-1.0) 12/16/18 04:38 Neut # (Auto) 3.8 x10^3/uL (2.2-4.8) 12/16/18 04:38 Lymph # (Auto) 1.2 X10^3/uL (1.3-2.9) L 12/16/18 04:38 [place] # (Auto) 0.9 x10^3/uL (0.3-0.8) H 12/16/18 04:38 Eos # (Auto) 0.1 x10^3/uL (0.0-0.2) 12/16/18 04:38 Baso # (Auto) 0.0 X10^3/uL (0.0-0.1) 12/16/18 04:38 Absolute Nucleated RBC 0.0 /100WBC 12/16/18 04:38 Sodium 140 mmol/L (136-145) 12/16/18 04:38 Corrected Sodium 141 mmol/L (136-145) 12/16/18 04:38 Potassium 3.9 mmol/L (3.5-5.1) 12/16/18 04:38 Chloride 104 mmol/L (98-107) 12/16/18 04:38 Carbon Dioxide 26.2 mmol/L (21-32) 12/16/18 04:38 BUN 4 mg/dL (7-18) L 12/16/18 04:38 Creatinine 0.67 mg/dL (0.55-1.02) 12/16/18 04:38 Est GFR (MDRD) Af Amer > 60 (>60) 12/16/18 04:38 Est GFR (MDRD) Non-Af > 60 (>60) 12/16/18 04:38 Glucose 121 mg/dL (65-99) H 12/16/18 04:38 Calcium 8.4 mg/dL (8.5-10.1) L 12/16/18 04:38 Corrected Calcium 9.4 mg/dL (8.5-10.1) 12/16/18 04:38 Magnesium 1.8 mg/dL (1.7-2.9) 12/16/18 04:38 Total Bilirubin 0.20 mg/dL (0.2-1.0) 12/16/18 04:38 AST 10 Units/L (15-37) L 12/16/18 04:38 ALT < 6 Units/L (12-78) L 12/16/18 04:38 Alkaline Phosphatase 74 Units/L (46-116) 12/16/18 04:38 Total Protein 6.4 g/dL (6.4-8.2) 12/16/18 04:38 Albumin 2.7 g/dL (3.4-5.0) L 12/16/18 04:38 Globulin 3.7 g/dL (2.5-4.5) 12/16/18 04:38 Albumin/Globulin Ratio 0.7 Ratio (1.1-2.1) L 12/16/18 04:38 Specimen Type Clean catch urine 12/13/18 22:45 Urine Color Yellow (YELLOW) 12/13/18 22:45 Urine Appearance Slightly hazy (CLEAR) 12/13/18 22:45 Urine pH 5.0 (5.0 - 8.0) 12/13/18 22:45 Ur Specific [place] 1.020 (1.000-1.030) 12/13/18 22:45 Urine Protein 1+ (NEGATIVE) 12/13/18 22:45 Urine Glucose (UA) Negative (NEGATIVE) 12/13/18 22:45 Urine Ketones 2+ (NEGATIVE) 12/13/18 22:45 Urine Occult Blood 5+ (NEGATIVE) 12/13/18 22:45 Urine Nitrite Positive (NEGATIVE) 12/13/18 22:45 Urine Bilirubin Negative (NEGATIVE) 12/13/18 22:45 Urine Urobilinogen Normal (NORMAL) 12/13/18 22:45 Ur Leukocyte Esterase 1+ (NEGATIVE) 12/13/18 22:45 Urine RBC 10-20 /HPF (NONE SEEN) 12/13/18 22:45 Urine WBC 3-5 /HPF (NONE SEEN) 12/13/18 22:45 Ur Squamous Epith Cells Rare /HPF (NEGATIVE) 12/13/18 22:45 Urine Bacteria 2+ /HPF (NEGATIVE) 12/13/18 22:45 Urine Yeast Rare /HPF (NEGATIVE) 12/13/18 22:45 Ur Culture Indicated? Yes/culture set up 12/13/18 22:45 Tissue Pathology To follow 12/15/18 07:52 - Plan (1) Small bowel obstruction Status: Acute Plan: ADMIT, NPO, IV ANTIBIOTICS, SURGICAL CONSULT, CONTINUE TO MONITOR (2) Abdominal mass Status: Acute Qualifiers: Abdominal location: unspecified location Qualified Code(s): R19.00 - Intra- abdominal and pelvic swelling, mass and lump, unspecified site Plan: IV ANTIBIOTICS, IV FLUIDS, SURGICAL CONSULT, CONTINUE TO MONITOR (3) Abdominal pain Status: Acute Qualifiers: Abdominal location: epigastric Qualified Code(s): R10.13 - Epigastric pain (4) Urinary tract infection Status: Acute Qualifiers: Urinary tract infection type: acute cystitis Hematuria presence: with hematuria Qualified Code(s): N30.01 - Acute cystitis with hematuria Plan: IV CIPRO, IV FLUIDS, CONTINUE TO MONITOR (5) Hypokalemia Status: Acute Plan: REPLACEMENT PER PROTOCOL (6) Hypomagnesemia Status: Acute Plan: REPLACEMENT PER PROTOCOL
[2018-12-16] MEDS ORDERED: NS 1000 ML 1,000 ML ONE (09:31)
[2018-12-16] MEDS ORDERED: FENTANYL INJ 100 mcg ONE (09:51)
[2018-12-16] MEDS ORDERED: XYLOCAINE 1 % (PLAIN) ONE (10:25)
[2018-12-16] MEDS ORDERED: PHARMACY CONSULT - TPN XX SCH ×2 (13:00→15:00)
[2018-12-16] MEDS ORDERED: LEXAPRO ONE (13:38)
[2018-12-16] MEDS: MAGNESIUM SULFATE 1 GRAM/100 mL PREMIX 1 GM/100 ML BAG IV PRN ×2 (13:50→16:02)
[2018-12-16] MEDS: DIFLUCAN 200 MG IV PREMIX* 200 MG/100 ML BAG IV SCH (13:55)
[2018-12-16] MEDS: ALBUMIN HUMAN 25%- 100 ML 100 ML IV SCH (13:55)
[2018-12-16] MEDS: OSCAL+D or CALTRATE+D PO SCH (13:56)
[2018-12-16] MEDS: VITAMIN D3 PO SCH (13:57)
[2018-12-16] MEDS: FOLIC ACID TAB 1 MG PO SCH (13:58)
[2018-12-16] MEDS: LEXAPRO PO SCH (13:58)
--- NOTE | 2018-12-16 13:58 | DR.PROGNOT ---
Hospital Progress Notes - Progress Note for Day of: Progress Note Date: 12/16/18 - Chief Complaint Chief Complaint: feeling better today , less abdominal pain . no nausea or vomiting . abdominal xray this morning showed significant improvement of the SBO . on nutritional supplement and IV ATB . - Past Medical Family Social History Past Med/Fam/Surg Hx: No changes since H&P Allergies: Allergies Penicillins Allergy (Verified 12/14/18 05:11) - Review Of Systems ROS: No change since H&P - Vital Signs Vital Signs: Temperature 99.0 F Pulse Rate [Left Brachial] 74 Pulse Rate 90 Respiratory Rate 18 Blood Pressure [Right Arm] 124/59 Blood Pressure [Left Arm] 104/50 Blood Pressure 121/56 O2 Sat by Pulse Oximetry 95 - Physical Exam Oriented: Normal Eyes: Normal Ear: Normal Nose: Normal Throat: Normal Cardiovascular: Normal : Normal GI:Auscultation: Decreased GI:Palpation: Normal GI: Tenderness: Diffuse, Moderate. negative: Rebound, Guarding, Rigidity Skin: Decreased Turgur Musculoskeletal: Normal Psychiatric: Normal Mood Description: Calm Affect: Normal Speech Pattern: Clear, Appropriate - Laboratory and Diagnostics Result Diagrams: 12/16/18 04:38 12/16/18 04:38 Labs: 12/14/18 02:11 Blood Blood Culture - Preliminary 12/14/18 02:00 Blood Blood Culture - Preliminary 12/13/18 22:45 Urine,Clean Catch Urine Culture - Final Klebsiella Pneumoniae Laboratory WBC 6.2 X10^3/uL (3.6-10.0) 12/16/18 04:38 RBC 3.64 X10^6/uL (3.5-5.4) 12/16/18 04:38 Hgb 10.4 g/dL (12.0-16.0) L 12/16/18 04:38 Hct 31.1 % (36.0-47.0) L 12/16/18 04:38 MCV 85.5 fL (80.0-100.0) 12/16/18 04:38 MCH 28.6 pg (27.0-34.0) 12/16/18 04:38 MCHC 33.5 g/dL (33.0-35.0) 12/16/18 04:38 RDW 16.2 % (11.6-16.5) 12/16/18 04:38 Plt Count 289 X10^3/uL (150.0-450.0) 12/16/18 04:38 MPV 7.6 fL (7.4-11.0) 12/16/18 04:38 Neut % (Auto) 62.0 % (42.0-75.0) 12/16/18 04:38 Lymph % (Auto) 20.1 % (21.0-51.0) L 12/16/18 04:38 [place] % (Auto) 15.3 % (0.0-13.0) H 12/16/18 04:38 Eos % (Auto) 2.3 % (0.9-2.9) 12/16/18 04:38 Baso % (Auto) 0.3 % (0.2-1.0) 12/16/18 04:38 Neut # (Auto) 3.8 x10^3/uL (2.2-4.8) 12/16/18 04:38 Lymph # (Auto) 1.2 X10^3/uL (1.3-2.9) L 12/16/18 04:38 [place] # (Auto) 0.9 x10^3/uL (0.3-0.8) H 12/16/18 04:38 Eos # (Auto) 0.1 x10^3/uL (0.0-0.2) 12/16/18 04:38 Baso # (Auto) 0.0 X10^3/uL (0.0-0.1) 12/16/18 04:38 Absolute Nucleated RBC 0.0 /100WBC 12/16/18 04:38 Sodium 140 mmol/L (136-145) 12/16/18 04:38 Corrected Sodium 141 mmol/L (136-145) 12/16/18 04:38 Potassium 3.9 mmol/L (3.5-5.1) 12/16/18 04:38 Chloride 104 mmol/L (98-107) 12/16/18 04:38 Carbon Dioxide 26.2 mmol/L (21-32) 12/16/18 04:38 BUN 4 mg/dL (7-18) L 12/16/18 04:38 Creatinine 0.67 mg/dL (0.55-1.02) 12/16/18 04:38 Est GFR (MDRD) Af Amer > 60 (>60) 12/16/18 04:38 Est GFR (MDRD) Non-Af > 60 (>60) 12/16/18 04:38 Glucose 121 mg/dL (65-99) H 12/16/18 04:38 Calcium 8.4 mg/dL (8.5-10.1) L 12/16/18 04:38 Corrected Calcium 9.4 mg/dL (8.5-10.1) 12/16/18 04:38 Magnesium 1.8 mg/dL (1.7-2.9) 12/16/18 04:38 Total Bilirubin 0.20 mg/dL (0.2-1.0) 12/16/18 04:38 AST 10 Units/L (15-37) L 12/16/18 04:38 ALT < 6 Units/L (12-78) L 12/16/18 04:38 Alkaline Phosphatase 74 Units/L (46-116) 12/16/18 04:38 Total Protein 6.4 g/dL (6.4-8.2) 12/16/18 04:38 Albumin 2.7 g/dL (3.4-5.0) L 12/16/18 04:38 Globulin 3.7 g/dL (2.5-4.5) 12/16/18 04:38 Albumin/Globulin Ratio 0.7 Ratio (1.1-2.1) L 12/16/18 04:38 Prealbumin 16.2 mg/dL (18-35.7) L 12/16/18 04:38 Specimen Type Clean catch urine 12/13/18 22:45 Urine Color Yellow (YELLOW) 12/13/18 22:45 Urine Appearance Slightly hazy (CLEAR) 12/13/18 22:45 Urine pH 5.0 (5.0 - 8.0) 12/13/18 22:45 Ur Specific [place] 1.020 (1.000-1.030) 12/13/18 22:45 Urine Protein 1+ (NEGATIVE) 12/13/18 22:45 Urine Glucose (UA) Negative (NEGATIVE) 12/13/18 22:45 Urine Ketones 2+ (NEGATIVE) 12/13/18 22:45 Urine Occult Blood 5+ (NEGATIVE) 12/13/18 22:45 Urine Nitrite Positive (NEGATIVE) 12/13/18 22:45 Urine Bilirubin Negative (NEGATIVE) 12/13/18 22:45 Urine Urobilinogen Normal (NORMAL) 12/13/18 22:45 Ur Leukocyte Esterase 1+ (NEGATIVE) 12/13/18 22:45 Urine RBC 10-20 /HPF (NONE SEEN) 12/13/18 22:45 Urine WBC 3-5 /HPF (NONE SEEN) 12/13/18 22:45 Ur Squamous Epith Cells Rare /HPF (NEGATIVE) 12/13/18 22:45 Urine Bacteria 2+ /HPF (NEGATIVE) 12/13/18 22:45 Urine Yeast Rare /HPF (NEGATIVE) 12/13/18 22:45 Ur Culture Indicated? Yes/culture set up 12/13/18 22:45 Tissue Pathology To follow 12/15/18 07:52 - Assessment and Plan 1: large distal gastric ulcer . recurrent diverticulitis with narrowing of sigmoid colon . partial SBO (improving ) with mass of small bowel r/o neoplasm . will continue IV ATB , Protonix and Carafate , IVF for few days before surgery - Problem Patient Problems: Patient Problems Small bowel obstruction (Acute) K56.609 Leukocytosis (Acute) D72.829 Hyponatremia (Acute) E87.1 Abdominal mass (Acute) R19.00 Urinary tract infection (Acute) N39.0 Hypokalemia (Acute) E87.6 Hypomagnesemia (Acute) E83.42
[2018-12-16] MEDS: NADOLOL PO SCH (14:01)
[2018-12-16] MEDS: NADOLOL 10 MG PO SCH (14:42)
[2018-12-16] MEDS ORDERED: VERSED ONE (15:22)
[2018-12-16] MEDS: CLINIMIX 4.25 %/10 % 1,000 ML with TPN ELECTROLYTES 20 ML, MVI INJ (ADULT) 10 ML IV SCH ×3 (16:03)
--- NOTE | 2018-12-16 19:15 | PCM.PROG ---
Progress Note - Progress Note for Day of Date of Exam: 12/16/18 - Subjective Subjective: IS BEING TREATED FOR A SMALL BOWEL OBSTRUCTION, ABDOMINAL MASS, AND A URINARY TRACT INFECTION. TODAY, SHE IS ALERT AND ORIENTED, LYING IN BED ON MORNING ROUNDS. SHE CONTINUES WITH COMPLAINTS OF ABDOMINAL PAIN AND GENERALIZED WEAKNESS. ON EXAMINATION, HEART IS REGULAR IN RATE AND RHYTHM. BILATERAL LUNGS ARE NOTED WITH DIMINISHED LUNG SOUNDS THROUGHOUT. ABDOMEN IS ROUND, SOFT, AND NOTED WITH DIFFUSE TENDERNESS TO PALPATION. HER VITALS THIS MORNING ARE: 99.2-74-18-96%-108/57. LABS WERE OBTAINED. ABNORMAL LAB VALUES INCLUDE THE FOLLOWIN.4, HCT 31.1, BUN 4, GLUCOSE 121, CALCIUM 8.4, AST 10, ALT <6, ALBUMIN 2.7. BLOOD CULTURES ARE PENDING. URINE CULTURE IS POSITIVE FOR GROWTH OF KLEBSIELLA PNEUMONIAE. A KUB WAS REPEATED THIS MORNING. IT REVEALED: INTERVAL IMPROVEMENT WITH REDUCTION IN GASEOUS DISTENTION OF SMALL BOWEL LOOPS. FINDINGS CURRENTLY FAVOR SMALL BOWEL ILEUS OVER PARTIAL SMALL BOWEL OBSTRUCTION. WE WILL CONTINUE WITH HER IV FLUIDS AND IV ANTIBIOTICS TODAY. WE WILL REPLACE HER MAGNESIUM AND POTASSIUM PER THE PROTOCOL. WE WILL ALSO START TPN AND LIPIDS. OTHERWISE, WE PLAN TO FOLLOW UP WITH AM LABS AND CONTINUE TO MONITOR. - Past Medical Family Social History Past Med/Fam/Surg Hx: No changes since H&P Allergies: Allergies Penicillins Allergy (Verified 12/14/18 05:11) - Review of Systems ROS: No change since H&P - Vital Signs and I&O's Vital Signs: Temperature 99.3 F Pulse Rate [Left Brachial] 77 Pulse Rate 90 Respiratory Rate 20 Blood Pressure [Right Arm] 124/59 Blood Pressure [Left Arm] 103/53 Blood Pressure 121/56 O2 Sat by Pulse Oximetry 95 Intake and Output: Intake & Output 12/14/18 12/15/18 12/16/18 12/17/18 11:59 11:59 11:59 11:59 Intake Total 0 / 0 3790 / 3790 5544 / 5544 1140 / 1140 Output Total 50 / 50 Balance 0 / 0 3790 / 3790 5494 / 5494 1140 / 1140 - Physical Exam Oriented: Normal Eyes: Normal Ear: Normal Nose: Normal Throat: Normal Cardiovascular: Normal : Normal Auscultation: Bowel Sounds: Decreased Palpation: Normal Tenderness: Diffuse, Moderate. negative: Rebound, Guarding, Rigidity Skin: Decreased Turgur Musculoskeletal: Normal Psychiatric: Normal Mood Description: Calm Affect: Normal Speech Pattern: Clear, Appropriate - Laboratory and Diagnostics Result Diagrams: 12/16/18 04:38 12/16/18 04:38 Labs: 12/14/18 02:11 Blood Blood Culture - Preliminary 12/14/18 02:00 Blood Blood Culture - Preliminary 12/13/18 22:45 Urine,Clean Catch Urine Culture - Final Klebsiella Pneumoniae Laboratory WBC 6.2 X10^3/uL (3.6-10.0) 12/16/18 04:38 RBC 3.64 X10^6/uL (3.5-5.4) 12/16/18 04:38 Hgb 10.4 g/dL (12.0-16.0) L 12/16/18 04:38 Hct 31.1 % (36.0-47.0) L 12/16/18 04:38 MCV 85.5 fL (80.0-100.0) 12/16/18 04:38 MCH 28.6 pg (27.0-34.0) 12/16/18 04:38 MCHC 33.5 g/dL (33.0-35.0) 12/16/18 04:38 RDW 16.2 % (11.6-16.5) 12/16/18 04:38 Plt Count 289 X10^3/uL (150.0-450.0) 12/16/18 04:38 MPV 7.6 fL (7.4-11.0) 12/16/18 04:38 Neut % (Auto) 62.0 % (42.0-75.0) 12/16/18 04:38 Lymph % (Auto) 20.1 % (21.0-51.0) L 12/16/18 04:38 [place] % (Auto) 15.3 % (0.0-13.0) H 12/16/18 04:38 Eos % (Auto) 2.3 % (0.9-2.9) 12/16/18 04:38 Baso % (Auto) 0.3 % (0.2-1.0) 12/16/18 04:38 Neut # (Auto) 3.8 x10^3/uL (2.2-4.8) 12/16/18 04:38 Lymph # (Auto) 1.2 X10^3/uL (1.3-2.9) L 12/16/18 04:38 [place] # (Auto) 0.9 x10^3/uL (0.3-0.8) H 12/16/18 04:38 Eos # (Auto) 0.1 x10^3/uL (0.0-0.2) 12/16/18 04:38 Baso # (Auto) 0.0 X10^3/uL (0.0-0.1) 12/16/18 04:38 Absolute Nucleated RBC 0.0 /100WBC 12/16/18 04:38 Sodium 140 mmol/L (136-145) 12/16/18 04:38 Corrected Sodium 141 mmol/L (136-145) 12/16/18 04:38 Potassium 3.9 mmol/L (3.5-5.1) 12/16/18 04:38 Chloride 104 mmol/L (98-107) 12/16/18 04:38 Carbon Dioxide 26.2 mmol/L (21-32) 12/16/18 04:38 BUN 4 mg/dL (7-18) L 12/16/18 04:38 Creatinine 0.67 mg/dL (0.55-1.02) 12/16/18 04:38 Est GFR (MDRD) Af Amer > 60 (>60) 12/16/18 04:38 Est GFR (MDRD) Non-Af > 60 (>60) 12/16/18 04:38 Glucose 121 mg/dL (65-99) H 12/16/18 04:38 Calcium 8.4 mg/dL (8.5-10.1) L 12/16/18 04:38 Corrected Calcium 9.4 mg/dL (8.5-10.1) 12/16/18 04:38 Magnesium 1.8 mg/dL (1.7-2.9) 12/16/18 04:38 Total Bilirubin 0.20 mg/dL (0.2-1.0) 12/16/18 04:38 AST 10 Units/L (15-37) L 12/16/18 04:38 ALT < 6 Units/L (12-78) L 12/16/18 04:38 Alkaline Phosphatase 74 Units/L (46-116) 12/16/18 04:38 Total Protein 6.4 g/dL (6.4-8.2) 12/16/18 04:38 Albumin 2.7 g/dL (3.4-5.0) L 12/16/18 04:38 Globulin 3.7 g/dL (2.5-4.5) 12/16/18 04:38 Albumin/Globulin Ratio 0.7 Ratio (1.1-2.1) L 12/16/18 04:38 Prealbumin 16.2 mg/dL (18-35.7) L 12/16/18 04:38 Specimen Type Clean catch urine 12/13/18 22:45 Urine Color Yellow (YELLOW) 12/13/18 22:45 Urine Appearance Slightly hazy (CLEAR) 12/13/18 22:45 Urine pH 5.0 (5.0 - 8.0) 12/13/18 22:45 Ur Specific [place] 1.020 (1.000-1.030) 12/13/18 22:45 Urine Protein 1+ (NEGATIVE) 12/13/18 22:45 Urine Glucose (UA) Negative (NEGATIVE) 12/13/18 22:45 Urine Ketones 2+ (NEGATIVE) 12/13/18 22:45 Urine Occult Blood 5+ (NEGATIVE) 12/13/18 22:45 Urine Nitrite Positive (NEGATIVE) 12/13/18 22:45 Urine Bilirubin Negative (NEGATIVE) 12/13/18 22:45 Urine Urobilinogen Normal (NORMAL) 12/13/18 22:45 Ur Leukocyte Esterase 1+ (NEGATIVE) 12/13/18 22:45 Urine RBC 10-20 /HPF (NONE SEEN) 12/13/18 22:45 Urine WBC 3-5 /HPF (NONE SEEN) 12/13/18 22:45 Ur Squamous Epith Cells Rare /HPF (NEGATIVE) 12/13/18 22:45 Urine Bacteria 2+ /HPF (NEGATIVE) 12/13/18 22:45 Urine Yeast Rare /HPF (NEGATIVE) 12/13/18 22:45 Ur Culture Indicated? Yes/culture set up 12/13/18 22:45 Tissue Pathology To follow 12/15/18 07:52 - Plan (1) Small bowel obstruction Status: Acute Plan: ADMIT, NPO, IV ANTIBIOTICS, SURGICAL CONSULT, CONTINUE TO MONITOR (2) Abdominal mass Status: Acute Qualifiers: Abdominal location: unspecified location Qualified Code(s): R19.00 - Intra-abdominal and pelvic swelling, mass and lump, unspecified site Plan: IV ANTIBIOTICS, IV FLUIDS, SURGICAL CONSULT, CONTINUE TO MONITOR (3) Abdominal pain Status: Inactive Qualifiers: Abdominal location: epigastric Qualified Code(s): R10.13 - Epigastric pain (4) Urinary tract infection Status: Acute Qualifiers: Urinary tract infection type: acute cystitis Hematuria presence: with hematuria Qualified Code(s): N30.01 - Acute cystitis with hematuria Plan: IV CIPRO, IV FLUIDS, CONTINUE TO MONITOR (5) Hypokalemia Status: Acute Plan: REPLACEMENT PER PROTOCOL (6) Hypomagnesemia Status: Acute Plan: REPLACEMENT PER PROTOCOL
[2018-12-16] MEDS: LIPOSYN III 20% 100ML 100 ML IV SCH (22:37)
[2018-12-17] MEDS: FLAGYL TAB 500 MG PO SCH ×4 (04:05→21:32)
[2018-12-17] MEDS: LR 1000 ML IV 1,000 ML IV SCH ×3 (04:11→19:00)
[2018-12-17 06:03] LABS: BASOPHILS % (AUTO) 0.3 % (0.2-1.0); EOSINOPHILS # (AUTO) 0.2 x10^3/uL (0.0-0.2); EOSINOPHILS % (AUTO) 2.7 % (0.9-2.9); HEMOGLOBIN 9.4 g/dL (12.0-16.0); LYMPHOCYTES # (AUTO) 1.3 X10^3/uL (1.3-2.9); LYMPHOCYTES % (AUTO) 16.2 % (21.0-51.0); MEAN CORPUSCULAR HEMOGLOBIN 28.6 pg (27.0-34.0); MEAN CORPUSCULAR HGB CONC 33.6 g/dL (33.0-35.0); MEAN CORPUSCULAR VOLUME 85.2 fL (80.0-100.0); MEAN PLATELET VOLUME 7.6 fL (7.4-11.0); MONOCYTES # (AUTO) 1.2 x10^3/uL (0.3-0.8); NEUTROPHILS # (AUTO) 5.4 x10^3/uL (2.2-4.8); NEUTROPHILS % (AUTO) 65.8 % (42.0-75.0); PLATELET COUNT 271 X10^3/uL (150.0-450.0); RED BLOOD COUNT 3.29 X10^6/uL (3.5-5.4); RED CELL DISTRIBUTION WIDTH 16.3 % (11.6-16.5); WHITE BLOOD COUNT 8.2 X10^3/uL (3.6-10.0)
[2018-12-17 06:12] LABS: ALANINE AMINOTRANSFERASE < 6 Units/L (12-78); ALBUMIN 2.9 g/dL (3.4-5.0); ALKALINE PHOSPHATASE 66 Units/L (46-116); ASPARTATE AMINO TRANSFERASE 9 Units/L (15-37); BLOOD UREA NITROGEN 6 mg/dL (7-18); CALCIUM 8.2 mg/dL (8.5-10.1); CHLORIDE 103 mmol/L (98-107); COR CA(FOR HYPOALB) 9.1 mg/dL (8.5-10.1); COR NA(FOR HYPERGLY) 141 mmol/L (136-145); SODIUM 140 mmol/L (136-145); TOTAL PROTEIN 6.1 g/dL (6.4-8.2); eGFR NON BLACK RACES > 60 (>60)
[2018-12-17] MEDS: CARAFATE PO SCH ×4 (07:23→21:32)
[2018-12-17] MEDS ORDERED: LEXAPRO ONE (07:37)
[2018-12-17] MEDS: OSCAL+D or CALTRATE+D PO SCH (08:40)
[2018-12-17] MEDS: LEXAPRO PO SCH (08:40)
[2018-12-17] MEDS: VITAMIN D3 PO SCH (08:40)
[2018-12-17] MEDS: PROTONIX INJ 40 MG VIAL IVP SCH ×2 (08:40→21:34)
[2018-12-17] MEDS: FOLIC ACID TAB 1 MG PO SCH (08:41)
[2018-12-17] MEDS: ALBUMIN HUMAN 25%- 100 ML 100 ML IV SCH (08:42)
[2018-12-17] MEDS: DIFLUCAN 200 MG IV PREMIX* 200 MG/100 ML BAG IV SCH (08:42)
[2018-12-17] MEDS: CIPRO IV 400 MG PREMIX* 400 MG/200 ML IV.SOLN. IV SCH ×2 (08:42→21:32)
[2018-12-17] MEDS: NADOLOL 10 MG PO SCH (08:43)
[2018-12-17] MEDS: KLOR-CON PO PRN (12:18)
[2018-12-17] MEDS: CLINIMIX 4.25 %/10 % 1,000 ML with TPN ELECTROLYTES 20 ML, MVI INJ (ADULT) 10 ML IV SCH ×3 (21:34)
[2018-12-17] MEDS: LIPOSYN III 20% 100ML 100 ML IV SCH (21:34)
[2018-12-18] MEDS: LR 1000 ML IV 1,000 ML IV SCH ×3 (04:00→19:34)
[2018-12-18] MEDS: FLAGYL TAB 500 MG PO SCH ×4 (04:45→21:03)
[2018-12-18 05:37] LABS: BASOPHILS # (AUTO) 0.1 X10^3/uL (0.0-0.1); BASOPHILS % (AUTO) 0.6 % (0.2-1.0); EOSINOPHILS # (AUTO) 0.4 x10^3/uL (0.0-0.2); HEMATOCRIT 30.4 % (36.0-47.0); HEMOGLOBIN 10.3 g/dL (12.0-16.0); LYMPHOCYTES % (AUTO) 19.3 % (21.0-51.0); MEAN CORPUSCULAR HGB CONC 33.9 g/dL (33.0-35.0); MEAN CORPUSCULAR VOLUME 85.8 fL (80.0-100.0); MEAN PLATELET VOLUME 7.6 fL (7.4-11.0); NEUTROPHILS # (AUTO) 6.8 x10^3/uL (2.2-4.8); NEUTROPHILS % (AUTO) 66.1 % (42.0-75.0); PLATELET COUNT 305 X10^3/uL (150.0-450.0); RED BLOOD COUNT 3.55 X10^6/uL (3.5-5.4); RED CELL DISTRIBUTION WIDTH 16.5 % (11.6-16.5); WHITE BLOOD COUNT 10.3 X10^3/uL (3.6-10.0)
[2018-12-18 05:50] LABS: ALANINE AMINOTRANSFERASE 6 Units/L (12-78); ALBUMIN 3.5 g/dL (3.4-5.0); ALKALINE PHOSPHATASE 68 Units/L (46-116); ASPARTATE AMINO TRANSFERASE 10 Units/L (15-37); BLOOD UREA NITROGEN 7 mg/dL (7-18); CALCIUM 9.1 mg/dL (8.5-10.1); CARBON DIOXIDE 25.9 mmol/L (21-32); CHLORIDE 103 mmol/L (98-107); COR NA(FOR HYPERGLY) 140 mmol/L (136-145); CREATININE 0.64 mg/dL (0.55-1.02); SODIUM 139 mmol/L (136-145); TOTAL PROTEIN 7.2 g/dL (6.4-8.2); eGFR NON BLACK RACES > 60 (>60)
[2018-12-18] MEDS: CARAFATE PO SCH ×4 (06:20→21:03)
[2018-12-18] MEDS ORDERED: HumuLIN R SUBCUT PRN (06:50)
[2018-12-18] MEDS ORDERED: DEXTROSE 10% 1,000 ML IV PRN (06:50)
[2018-12-18] MEDS: CLINIMIX 4.25 %/10 % 1,000 ML with TPN ELECTROLYTES 20 ML, MVI INJ (ADULT) 10 ML IV SCH ×6 (07:05→08:23)
[2018-12-18 07:13] LABS: MAGNESIUM 1.6 mg/dL (1.7-2.9); PHOSPHORUS 2.1 mg/dL (2.6-4.7)
[2018-12-18] MEDS ORDERED: LEXAPRO ONE (07:20)
[2018-12-18] MEDS: FOLIC ACID TAB 1 MG PO SCH (08:20)
[2018-12-18] MEDS: DIFLUCAN 200 MG IV PREMIX* 200 MG/100 ML BAG IV SCH (08:21)
[2018-12-18] MEDS: OSCAL+D or CALTRATE+D PO SCH (08:21)
[2018-12-18] MEDS: VITAMIN D3 PO SCH (08:21)
[2018-12-18] MEDS: LEXAPRO PO SCH (08:21)
[2018-12-18] MEDS: ALBUMIN HUMAN 25%- 100 ML 100 ML IV SCH (08:22)
[2018-12-18] MEDS: CIPRO IV 400 MG PREMIX* 400 MG/200 ML IV.SOLN. IV SCH ×2 (08:22→21:04)
[2018-12-18] MEDS: PROTONIX INJ 40 MG VIAL IVP SCH ×2 (08:23→21:03)
[2018-12-18] MEDS: NADOLOL 10 MG PO SCH (08:29)
--- NOTE | 2018-12-18 19:54 | PCM.PROG ---
Progress Note - Progress Note for Day of Date of Exam: 12/17/18 - Subjective Subjective: IS BEING TREATED FOR A SMALL BOWEL OBSTRUCTION, ABDOMINAL MASS, AND A URINARY TRACT INFECTION. TODAY, SHE IS ALERT AND ORIENTED, LYING IN BED ON MORNING ROUNDS. SHE CONTINUES WITH COMPLAINTS OF ABDOMINAL PAIN AND GENERALIZED WEAKNESS. ON EXAMINATION, HEART IS REGULAR IN RATE AND RHYTHM. BILATERAL LUNGS ARE NOTED WITH DIMINISHED LUNG SOUNDS THROUGHOUT. ABDOMEN IS ROUND, SOFT, AND NOTED WITH DIFFUSE TENDERNESS TO PALPATION. HER VITALS THIS MORNING ARE: 98.8-74-18-94%-136/64. LABS WERE OBTAINED. ABNORMAL LAB VALUES INCLUDE THE FOLLOWING: RBC 3.29, HGB 9.4, HCT 28.0, POTASSIUM 3.3, BUN 6, GLUCOSE 133, CALCIUM 8.2, TOTAL PROTEIN 0.10, AST 9, ALT <6, TOTAL PROTEIN 6.1, ALBUMIN 2.9. BLOOD CULTURES ARE PENDING. URINE CULTURE IS POSITIVE FOR GROWTH OF KLEBSIELLA PNEUMONIAE. WE WILL CONTINUE WITH HER IV FLUIDS, IV ANTIBIOTICS, TPN, ALBUMIN, AND CURRENT PLAN OF CARE TODAY. OTHERWISE, WE PLAN TO FOLLOW UP WITH AM LABS AND CONTINUE TO MONITOR. - Past Medical Family Social History Past Med/Fam/Surg Hx: No changes since H&P Allergies: Allergies Penicillins Allergy (Verified 12/14/18 05:11) - Review of Systems ROS: No change since H&P - Vital Signs and I&O's Vital Signs: Temperature 97.9 F Pulse Rate [Left Brachial] 76 Pulse Rate 90 Respiratory Rate 18 Blood Pressure [Right Arm] 124/58 Blood Pressure [Left Arm] 100/54 Blood Pressure 121/56 O2 Sat by Pulse Oximetry 96 Intake and Output: Intake & Output 12/16/18 12/17/18 12/18/18 12/19/18 11:59 11:59 11:59 11:59 Intake Total 5544 / 5544 3890 / 3890 6380 / 6380 1540 / 1540 Output Total 50 / 50 Balance 5494 / 5494 3890 / 3890 6380 / 6380 1540 / 1540 - Physical Exam Oriented: Normal Eyes: Normal Ear: Normal Nose: Normal Throat: Normal Respiratory: Generalized Cardiovascular: Normal : Normal Auscultation: Bowel Sounds: Decreased Palpation: Normal Tenderness: Diffuse, Moderate. negative: Rebound, Guarding, Rigidity Skin: Decreased Turgur Musculoskeletal: Normal Psychiatric: Normal Mood Description: Calm Affect: Normal Speech Pattern: Clear, Appropriate - Laboratory and Diagnostics Result Diagrams: 12/18/18 05:06 12/18/18 05:06 Labs: 12/14/18 02:11 Blood Blood Culture - Preliminary 12/14/18 02:00 Blood Blood Culture - Preliminary 12/13/18 22:45 Urine,Clean Catch Urine Culture - Final Klebsiella Pneumoniae Laboratory WBC 10.3 X10^3/uL (3.6-10.0) H 12/18/18 05:06 RBC 3.55 X10^6/uL (3.5-5.4) 12/18/18 05:06 Hgb 10.3 g/dL (12.0-16.0) L 12/18/18 05:06 Hct 30.4 % (36.0-47.0) L 12/18/18 05:06 MCV 85.8 fL (80.0-100.0) 12/18/18 05:06 MCH 29.0 pg (27.0-34.0) 12/18/18 05:06 MCHC 33.9 g/dL (33.0-35.0) 12/18/18 05:06 RDW 16.5 % (11.6-16.5) 12/18/18 05:06 Plt Count 305 X10^3/uL (150.0-450.0) 12/18/18 05:06 MPV 7.6 fL (7.4-11.0) 12/18/18 05:06 Neut % (Auto) 66.1 % (42.0-75.0) 12/18/18 05:06 Lymph % (Auto) 19.3 % (21.0-51.0) L 12/18/18 05:06 [place] % (Auto) 10.0 % (0.0-13.0) 12/18/18 05:06 Eos % (Auto) 4.0 % (0.9-2.9) H 12/18/18 05:06 Baso % (Auto) 0.6 % (0.2-1.0) 12/18/18 05:06 Neut # (Auto) 6.8 x10^3/uL (2.2-4.8) H 12/18/18 05:06 Lymph # (Auto) 2.0 X10^3/uL (1.3-2.9) 12/18/18 05:06 [place] # (Auto) 1.0 x10^3/uL (0.3-0.8) H 12/18/18 05:06 Eos # (Auto) 0.4 x10^3/uL (0.0-0.2) H 12/18/18 05:06 Baso # (Auto) 0.1 X10^3/uL (0.0-0.1) 12/18/18 05:06 Absolute Nucleated RBC 0.0 /100WBC 12/18/18 05:06 Sodium 139 mmol/L (136-145) 12/18/18 05:06 Corrected Sodium 140 mmol/L (136-145) 12/18/18 05:06 Potassium 3.8 mmol/L (3.5-5.1) 12/18/18 05:06 Chloride 103 mmol/L (98-107) 12/18/18 05:06 Carbon Dioxide 25.9 mmol/L (21-32) 12/18/18 05:06 BUN 7 mg/dL (7-18) 12/18/18 05:06 Creatinine 0.64 mg/dL (0.55-1.02) 12/18/18 05:06 Est GFR (MDRD) Af Amer > 60 (>60) 12/18/18 05:06 Est GFR (MDRD) Non-Af > 60 (>60) 12/18/18 05:06 Glucose 134 mg/dL (65-99) H 12/18/18 05:06 Calcium 9.1 mg/dL (8.5-10.1) 12/18/18 05:06 Corrected Calcium TNP 12/18/18 05:06 Phosphorus 2.1 mg/dL (2.6-4.7) L 12/18/18 05:06 Magnesium 1.6 mg/dL (1.7-2.9) L 12/18/18 05:06 Total Bilirubin 0.20 mg/dL (0.2-1.0) 12/18/18 05:06 AST 10 Units/L (15-37) L 12/18/18 05:06 ALT 6 Units/L (12-78) L 12/18/18 05:06 Alkaline Phosphatase 68 Units/L (46-116) 12/18/18 05:06 Total Protein 7.2 g/dL (6.4-8.2) 12/18/18 05:06 Albumin 3.5 g/dL (3.4-5.0) 12/18/18 05:06 Globulin 3.7 g/dL (2.5-4.5) 12/18/18 05:06 Albumin/Globulin Ratio 0.9 Ratio (1.1-2.1) L 12/18/18 05:06 Prealbumin 16.2 mg/dL (18-35.7) L 12/16/18 04:38 Triglycerides 172 mg/dL (0-150) H 12/18/18 05:06 Specimen Type Clean catch urine 12/13/18 22:45 Urine Color Yellow (YELLOW) 12/13/18 22:45 Urine Appearance Slightly hazy (CLEAR) 12/13/18 22:45 Urine pH 5.0 (5.0 - 8.0) 12/13/18 22:45 Ur Specific [place] 1.020 (1.000-1.030) 12/13/18 22:45 Urine Protein 1+ (NEGATIVE) 12/13/18 22:45 Urine Glucose (UA) Negative (NEGATIVE) 12/13/18 22:45 Urine Ketones 2+ (NEGATIVE) 12/13/18 22:45 Urine Occult Blood 5+ (NEGATIVE) 12/13/18 22:45 Urine Nitrite Positive (NEGATIVE) 12/13/18 22:45 Urine Bilirubin Negative (NEGATIVE) 12/13/18 22:45 Urine Urobilinogen Normal (NORMAL) 12/13/18 22:45 Ur Leukocyte Esterase 1+ (NEGATIVE) 12/13/18 22:45 Urine RBC 10-20 /HPF (NONE SEEN) 12/13/18 22:45 Urine WBC 3-5 /HPF (NONE SEEN) 12/13/18 22:45 Ur Squamous Epith Cells Rare /HPF (NEGATIVE) 12/13/18 22:45 Urine Bacteria 2+ /HPF (NEGATIVE) 12/13/18 22:45 Urine Yeast Rare /HPF (NEGATIVE) 12/13/18 22:45 Ur Culture Indicated? Yes/culture set up 12/13/18 22:45 Tissue Pathology To follow 12/15/18 07:52 - Plan (1) Small bowel obstruction Status: Acute Plan: IV ANTIBIOTICS, CONTINUE TO MONITOR (2) Abdominal mass Status: Acute Qualifiers: Abdominal location: unspecified location Qualified Code(s): R19.00 - Intra- abdominal and pelvic swelling, mass and lump, unspecified site Plan: IV ANTIBIOTICS, IV FLUIDS, SURGICAL CONSULT, CONTINUE TO MONITOR (3) Abdominal pain Status: Inactive Qualifiers: Abdominal location: epigastric Qualified Code(s): R10.13 - Epigastric pain (4) Urinary tract infection Status: Acute Qualifiers: Urinary tract infection type: acute cystitis Hematuria presence: with hematuria Qualified Code(s): N30.01 - Acute cystitis with hematuria Plan: IV CIPRO, IV FLUIDS, CONTINUE TO MONITOR (5) Hypokalemia Status: Acute Plan: REPLACEMENT PER PROTOCOL (6) Hypomagnesemia Status: Acute Plan: REPLACEMENT PER PROTOCOL
[2018-12-18] MEDS: LIPOSYN III 20% 100ML 100 ML IV SCH (21:04)
[2018-12-19] MEDS: CLINIMIX 4.25 %/10 % 1,000 ML with TPN ELECTROLYTES 20 ML, MVI INJ (ADULT) 10 ML IV SCH ×6 (00:24→13:25)
[2018-12-19] MEDS: FLAGYL TAB 500 MG PO SCH ×4 (02:37→20:53)
[2018-12-19] MEDS: LR 1000 ML IV 1,000 ML IV SCH ×3 (02:38→22:38)
[2018-12-19] MEDS: CARAFATE PO SCH ×4 (06:00→20:53)
[2018-12-19 06:22] LABS: BASOPHILS % (AUTO) 0.5 % (0.2-1.0); EOSINOPHILS # (AUTO) 0.3 x10^3/uL (0.0-0.2); EOSINOPHILS % (AUTO) 3.3 % (0.9-2.9); HEMATOCRIT 29.8 % (36.0-47.0); HEMOGLOBIN 10.1 g/dL (12.0-16.0); LYMPHOCYTES # (AUTO) 1.6 X10^3/uL (1.3-2.9); LYMPHOCYTES % (AUTO) 16.1 % (21.0-51.0); MEAN CORPUSCULAR HEMOGLOBIN 28.4 pg (27.0-34.0); MEAN CORPUSCULAR HGB CONC 33.9 g/dL (33.0-35.0); MEAN CORPUSCULAR VOLUME 83.7 fL (80.0-100.0); MEAN PLATELET VOLUME 7.4 fL (7.4-11.0); MONOCYTES % (AUTO) 9.8 % (0.0-13.0); NEUTROPHILS % (AUTO) 70.3 % (42.0-75.0); PLATELET COUNT 354 X10^3/uL (150.0-450.0); RED BLOOD COUNT 3.56 X10^6/uL (3.5-5.4); WHITE BLOOD COUNT 9.9 X10^3/uL (3.6-10.0)
[2018-12-19 06:33] LABS: PREALBUMIN 16.6 mg/dL (18-35.7)
[2018-12-19 06:39] LABS: ALANINE AMINOTRANSFERASE 6 Units/L (12-78); ALBUMIN 3.6 g/dL (3.4-5.0); ALKALINE PHOSPHATASE 65 Units/L (46-116); ASPARTATE AMINO TRANSFERASE 8 Units/L (15-37); BLOOD UREA NITROGEN 11 mg/dL (7-18); CALCIUM 9.4 mg/dL (8.5-10.1); CARBON DIOXIDE 24.9 mmol/L (21-32); CHLORIDE 102 mmol/L (98-107); COR NA(FOR HYPERGLY) 139 mmol/L (136-145); CREATININE 0.59 mg/dL (0.55-1.02); SODIUM 139 mmol/L (136-145); TOTAL PROTEIN 7.2 g/dL (6.4-8.2); eGFR NON BLACK RACES > 60 (>60)
[2018-12-19] MEDS ORDERED: LEXAPRO ONE (08:19)
[2018-12-19] MEDS: ALBUMIN HUMAN 25%- 100 ML 100 ML IV SCH (09:01)
[2018-12-19] MEDS: DIFLUCAN 200 MG IV PREMIX* 200 MG/100 ML BAG IV SCH (09:03)
[2018-12-19] MEDS: CIPRO IV 400 MG PREMIX* 400 MG/200 ML IV.SOLN. IV SCH ×2 (09:03→20:53)
[2018-12-19] MEDS: LEXAPRO PO SCH (11:02)
[2018-12-19] MEDS: OSCAL+D or CALTRATE+D PO SCH (11:03)
[2018-12-19] MEDS: PROTONIX INJ 40 MG VIAL IVP SCH ×2 (11:03→20:53)
[2018-12-19] MEDS: FOLIC ACID TAB 1 MG PO SCH (11:03)
[2018-12-19] MEDS: NADOLOL 10 MG PO SCH (11:03)
[2018-12-19] MEDS: VITAMIN D3 PO SCH (11:03)
[2018-12-19] MEDS ORDERED: NULYTELY or GO-LYTELY ONE (17:40)
[2018-12-19] MEDS: NULYTELY or GO-LYTELY PO SCH (18:13)
--- NOTE | 2018-12-19 19:41 | PCM.PROG ---
Progress Note - Progress Note for Day of Date of Exam: 12/18/18 - Subjective Subjective: IS BEING TREATED FOR A SMALL BOWEL OBSTRUCTION, ABDOMINAL MASS, AND A URINARY TRACT INFECTION. TODAY, SHE IS ALERT AND ORIENTED, LYING IN BED ON MORNING ROUNDS. SHE CONTINUES WITH COMPLAINTS OF ABDOMINAL PAIN AND GENERALIZED WEAKNESS, BUT REPORTS SLIGHT IMPROVEMENT TODAY. ON EXAMINATION, HEART IS REGULAR IN RATE AND RHYTHM. BILATERAL LUNGS ARE NOTED WITH DIMINISHED LUNG SOUNDS THROUGHOUT. ABDOMEN IS ROUND, SOFT, AND NOTED WITH DIFFUSE TENDERNESS TO PALPATION. HER VITALS THIS MORNING ARE: 98.8-70-18-94%-124/58. LABS WERE OBTAINED. ABNORMAL LAB VALUES INCLUDE THE FOLLOWING: WBC 10.3, HGB 10.3, HCT 30.4, GLUCOSE 134, AST 10, ALT 6, PHOSPHORUS 2.1, ALBUMIN 1.6. BLOOD CULTURES ARE PENDING. URINE CULTURE IS POSITIVE FOR GROWTH OF KLEBSIELLA PNEUMONIAE. WE WILL CONTINUE WITH HER IV FLUIDS, IV ANTIBIOTICS, TPN, ALBUMIN, AND CURRENT PLAN OF CARE TODAY. PLANS FOR AN EXPLORATORY LAP THE FIRST OF THE WEEK. OTHERWISE, WE PLAN TO FOLLOW UP WITH AM LABS AND CONTINUE TO MONITOR. - Past Medical Family Social History Past Med/Fam/Surg Hx: No changes since H&P Allergies: Allergies Penicillins Allergy (Verified 12/14/18 05:11) - Review of Systems ROS: No change since H&P - Vital Signs and I&O's Vital Signs: Temperature 98.3 F Pulse Rate [Left Brachial] 74 Pulse Rate 90 Respiratory Rate 18 Blood Pressure [Right Arm] 107/54 Blood Pressure [Left Arm] 100/54 Blood Pressure 121/56 O2 Sat by Pulse Oximetry 98 Intake and Output: Intake & Output 12/17/18 12/18/18 12/19/18 12/20/18 11:59 11:59 11:59 11:59 Intake Total 3890 / 3890 6380 / 6380 4143 / 4143 1491 / 1491 Balance 3890 / 3890 6380 / 6380 4143 / 4143 1491 / 1491 - Physical Exam Oriented: Normal Eyes: Normal Ear: Normal Nose: Normal Throat: Normal Respiratory: Generalized Cardiovascular: Normal : Normal Auscultation: Bowel Sounds: Normal Palpation: Normal Tenderness: Diffuse, Mild. negative: Rebound, Guarding, Rigidity Skin: Decreased Turgur Musculoskeletal: Normal Psychiatric: Normal Mood Description: Calm Affect: Normal Speech Pattern: Clear, Appropriate - Laboratory and Diagnostics Result Diagrams: 12/19/18 05:20 12/19/18 05:20 Labs: 12/14/18 02:11 Blood Blood Culture - Final 12/14/18 02:00 Blood Blood Culture - Final 12/13/18 22:45 Urine,Clean Catch Urine Culture - Final Klebsiella Pneumoniae Laboratory WBC 9.9 X10^3/uL (3.6-10.0) 12/19/18 05:20 RBC 3.56 X10^6/uL (3.5-5.4) 12/19/18 05:20 Hgb 10.1 g/dL (12.0-16.0) L 12/19/18 05:20 Hct 29.8 % (36.0-47.0) L 12/19/18 05:20 MCV 83.7 fL (80.0-100.0) 12/19/18 05:20 MCH 28.4 pg (27.0-34.0) 12/19/18 05:20 MCHC 33.9 g/dL (33.0-35.0) 12/19/18 05:20 RDW 16.0 % (11.6-16.5) 12/19/18 05:20 Plt Count 354 X10^3/uL (150.0-450.0) 12/19/18 05:20 MPV 7.4 fL (7.4-11.0) 12/19/18 05:20 Neut % (Auto) 70.3 % (42.0-75.0) 12/19/18 05:20 Lymph % (Auto) 16.1 % (21.0-51.0) L 12/19/18 05:20 [place] % (Auto) 9.8 % (0.0-13.0) 12/19/18 05:20 Eos % (Auto) 3.3 % (0.9-2.9) H 12/19/18 05:20 Baso % (Auto) 0.5 % (0.2-1.0) 12/19/18 05:20 Neut # (Auto) 7.0 x10^3/uL (2.2-4.8) H 12/19/18 05:20 Lymph # (Auto) 1.6 X10^3/uL (1.3-2.9) 12/19/18 05:20 [place] # (Auto) 1.0 x10^3/uL (0.3-0.8) H 12/19/18 05:20 Eos # (Auto) 0.3 x10^3/uL (0.0-0.2) H 12/19/18 05:20 Baso # (Auto) 0.0 X10^3/uL (0.0-0.1) 12/19/18 05:20 Absolute Nucleated RBC 0.0 /100WBC 12/19/18 05:20 Sodium 139 mmol/L (136-145) 12/19/18 05:20 Corrected Sodium 139 mmol/L (136-145) 12/19/18 05:20 Potassium 3.8 mmol/L (3.5-5.1) 12/19/18 05:20 Chloride 102 mmol/L (98-107) 12/19/18 05:20 Carbon Dioxide 24.9 mmol/L (21-32) 12/19/18 05:20 BUN 11 mg/dL (7-18) 12/19/18 05:20 Creatinine 0.59 mg/dL (0.55-1.02) 12/19/18 05:20 Est GFR (MDRD) Af Amer > 60 (>60) 12/19/18 05:20 Est GFR (MDRD) Non-Af > 60 (>60) 12/19/18 05:20 Glucose 118 mg/dL (65-99) H 12/19/18 05:20 Calcium 9.4 mg/dL (8.5-10.1) 12/19/18 05:20 Corrected Calcium TNP 12/19/18 05:20 Phosphorus 2.1 mg/dL (2.6-4.7) L 12/18/18 05:06 Magnesium 1.6 mg/dL (1.7-2.9) L 12/18/18 05:06 Total Bilirubin 0.20 mg/dL (0.2-1.0) 12/19/18 05:20 AST 8 Units/L (15-37) L 12/19/18 05:20 ALT 6 Units/L (12-78) L 12/19/18 05:20 Alkaline Phosphatase 65 Units/L (46-116) 12/19/18 05:20 Total Protein 7.2 g/dL (6.4-8.2) 12/19/18 05:20 Albumin 3.6 g/dL (3.4-5.0) 12/19/18 05:20 Globulin 3.6 g/dL (2.5-4.5) 12/19/18 05:20 Albumin/Globulin Ratio 1.0 Ratio (1.1-2.1) L 12/19/18 05:20 Prealbumin 16.6 mg/dL (18-35.7) L 12/19/18 05:20 Triglycerides 172 mg/dL (0-150) H 12/18/18 05:06 Carcinoembryonic Ag 3.6 ng/mL 12/14/18 06:55 Specimen Type Clean catch urine 12/13/18 22:45 Urine Color Yellow (YELLOW) 12/13/18 22:45 Urine Appearance Slightly hazy (CLEAR) 12/13/18 22:45 Urine pH 5.0 (5.0 - 8.0) 12/13/18 22:45 Ur Specific [place] 1.020 (1.000-1.030) 12/13/18 22:45 Urine Protein 1+ (NEGATIVE) 12/13/18 22:45 Urine Glucose (UA) Negative (NEGATIVE) 12/13/18 22:45 Urine Ketones 2+ (NEGATIVE) 12/13/18 22:45 Urine Occult Blood 5+ (NEGATIVE) 12/13/18 22:45 Urine Nitrite Positive (NEGATIVE) 12/13/18 22:45 Urine Bilirubin Negative (NEGATIVE) 12/13/18 22:45 Urine Urobilinogen Normal (NORMAL) 12/13/18 22:45 Ur Leukocyte Esterase 1+ (NEGATIVE) 12/13/18 22:45 Urine RBC 10-20 /HPF (NONE SEEN) 12/13/18 22:45 Urine WBC 3-5 /HPF (NONE SEEN) 12/13/18 22:45 Ur Squamous Epith Cells Rare /HPF (NEGATIVE) 12/13/18 22:45 Urine Bacteria 2+ /HPF (NEGATIVE) 12/13/18 22:45 Urine Yeast Rare /HPF (NEGATIVE) 12/13/18 22:45 Ur Culture Indicated? Yes/culture set up 12/13/18 22:45 Tissue Pathology To follow 12/15/18 07:52 - Plan (1) Small bowel obstruction Status: Acute Plan: IV ANTIBIOTICS, CONTINUE TO MONITOR (2) Abdominal mass Status: Acute Qualifiers: Abdominal location: unspecified location Qualified Code(s): R19.00 - Intra- abdominal and pelvic swelling, mass and lump, unspecified site Plan: IV ANTIBIOTICS, IV FLUIDS, SURGICAL CONSULT, CONTINUE TO MONITOR (3) Urinary tract infection Status: Acute Qualifiers: Urinary tract infection type: acute cystitis Hematuria presence: with hematuria Qualified Code(s): N30.01 - Acute cystitis with hematuria Plan: IV CIPRO, IV FLUIDS, CONTINUE TO MONITOR (4) Hypokalemia Status: Acute Plan: REPLACEMENT PER PROTOCOL (5) Hypomagnesemia Status: Acute Plan: REPLACEMENT PER PROTOCOL
[2018-12-19] MEDS: LIPOSYN III 20% 100ML 100 ML IV SCH (22:37)
[2018-12-20] MEDS: LR 1000 ML IV 1,000 ML IV SCH (03:45)
[2018-12-20] MEDS: FLAGYL TAB 500 MG PO SCH ×4 (03:46→20:09)
[2018-12-20] MEDS: CARAFATE PO SCH ×4 (06:30→20:08)
[2018-12-20 06:48] LABS: ALANINE AMINOTRANSFERASE < 6 Units/L (12-78); ALBUMIN 3.8 g/dL (3.4-5.0); ALKALINE PHOSPHATASE 61 Units/L (46-116); ASPARTATE AMINO TRANSFERASE 8 Units/L (15-37); BLOOD UREA NITROGEN 12 mg/dL (7-18); CALCIUM 9.4 mg/dL (8.5-10.1); CARBON DIOXIDE 24.5 mmol/L (21-32); CHLORIDE 101 mmol/L (98-107); SODIUM 138 mmol/L (136-145); TOTAL PROTEIN 7.4 g/dL (6.4-8.2); eGFR NON BLACK RACES > 60 (>60)
[2018-12-20] MEDS ORDERED: LR 1000 ML IV 1,000 ML ONE ×2 (07:20→07:22)
[2018-12-20] MEDS ORDERED: DECADRON INJ ONE ×2 (07:22→10:00)
[2018-12-20] MEDS ORDERED: FENTANYL INJ 250 mcg ONE (07:22)
[2018-12-20] MEDS ORDERED: ZEMURON ONE ×2 (07:24→10:00)
[2018-12-20] MEDS ORDERED: FLAGYL IV PREMIX 500 MG BAG 500 MG/100 ML BAG IV ONE (07:27)
[2018-12-20] MEDS ORDERED: BACITRACIN VIAL ONE (08:10)
[2018-12-20 08:26] LABS: BILIRUBIN,URINE NEGATIVE (NEGATIVE); BLOOD/HEMOGLOBIN,URINE 4+ (NEGATIVE); GLUCOSE, URINE NEGATIVE (NEGATIVE); KETONES,URINE NEGATIVE (NEGATIVE); LEUKOCYTE ESTERASE ,URINE 1+ (NEGATIVE); NITRITES,URINE NEGATIVE (NEGATIVE); PROTEIN,URINE NEGATIVE (NEGATIVE); UROBILINOGEN,URINE NORMAL (NORMAL)
[2018-12-20 08:38] LABS: APPEARANCE,URINE SLIGHTLY HAZY (CLEAR); COLOR,URINE YELLOW (YELLOW)
[2018-12-20 08:45] LABS: AMORPHOUS SEDIMENT,UR 1+ /HPF (NEGATIVE); BACTERIA,URINE NEGATIVE /HPF (NEGATIVE); SQUAMOUS EPITHELIAL CELL,UR RARE /HPF (NEGATIVE)
[2018-12-20] MEDS: CIPRO IV 400 MG PREMIX* 400 MG/200 ML IV.SOLN. IV SCH ×2 (08:58→23:15)
[2018-12-20] MEDS ORDERED: NEOSTIGMINE INJ ONE (10:00)
[2018-12-20] MEDS ORDERED: QUELICIN (OR ANECTINE) ONE (10:00)
[2018-12-20] MEDS ORDERED: XYLOCAINE 1 % (PLAIN) ONE (10:00)
[2018-12-20] MEDS ORDERED: ROBINUL ONE (10:00)
[2018-12-20] MEDS ORDERED: DIPRIVAN VIAL ONE (10:00)
[2018-12-20] MEDS ORDERED: ZOFRAN INJ 4 MG VIAL ONE (10:00)
[2018-12-20] MEDS ORDERED: EPHEDRINE SULFATE INJ ONE (10:00)
[2018-12-20] MEDS ORDERED: TORADOL 30 MG VIAL ONE (10:00)
[2018-12-20] MEDS ORDERED: VERSED ONE (10:00)
[2018-12-20] MEDS ORDERED: ULTANE GAS ONE (10:00)
[2018-12-20] MEDS ORDERED: BENADRYL INJ 50 MG VIAL IVP PRN (10:59)
[2018-12-20] MEDS ORDERED: PHENERGAN INJ 25 MG IM PRN (10:59)
[2018-12-20] MEDS ORDERED: ZOFRAN INJ 4 MG VIAL IVP PRN (10:59)
[2018-12-20] MEDS ORDERED: REGLAN INJ 10 MG VIAL IVP PRN (10:59)
[2018-12-20] MEDS ORDERED: DILAUDID INJ ONE ×2 (11:02→11:18)
--- NOTE | 2018-12-20 11:02 | OR.IMMED ---
Immediate Post-Op Note - Immediate Post-Op Note Pre-Op Diagnosis: SBO R/O neoplasm , thickining of the recto sigmoid , R/O neoplasm . recurrent SBO . Post-Op Diagnosis: extensive abdominal and pelvic adhesions . 2-residual pelvic abscess from diverticulitis with dense adhesions involving 2 loops of small bowel .. chronic inflamation around the recto sigmoid . Procedure: exploratory lap , lysis of extensive adhesions . partial SB resection x 2 . and drainage . Surgeon/Tie Puller: Irena. Specimens Removed: small bowel Estimated Blood Loss: 200 cc Drains: NONE Complications: no
[2018-12-20] MEDS: DILAUDID INJ IVP PRN ×6 (11:03→22:10)
[2018-12-20] MEDS ORDERED: NS IRRIGATION 500 ML ONE (12:28)
[2018-12-20] MEDS: D5 1/2 NS 1000 ML 1,000 ML IV SCH ×2 (13:21→20:53)
[2018-12-20] MEDS: DIFLUCAN 200 MG IV PREMIX* 200 MG/100 ML BAG IV SCH (15:05)
[2018-12-20] MEDS: CLINIMIX 4.25 %/10 % 1,000 ML with TPN ELECTROLYTES 20 ML, MVI INJ (ADULT) 10 ML IV SCH ×3 (15:06)
[2018-12-20] MEDS: ALBUMIN HUMAN 25%- 100 ML 100 ML IV SCH (15:06)
[2018-12-20] MEDS: NADOLOL 10 MG PO SCH (15:25)
[2018-12-20] MEDS: LEXAPRO PO SCH (15:25)
[2018-12-20] MEDS: FOLIC ACID TAB 1 MG PO SCH (15:25)
[2018-12-20] MEDS: OSCAL+D or CALTRATE+D PO SCH (15:26)
[2018-12-20] MEDS: VITAMIN D3 PO SCH (15:26)
[2018-12-20] MEDS: PROTONIX INJ 40 MG VIAL IVP SCH ×2 (15:26→21:03)
[2018-12-20] MEDS: NULYTELY or GO-LYTELY PO SCH (18:47)
[2018-12-20] MEDS: MAGNESIUM SULFATE 1 GRAM/100 mL PREMIX 1 GM/100 ML BAG IV PRN ×2 (20:55→22:14)
[2018-12-20] MEDS ORDERED: PROTONIX INJ 40 MG VIAL IVP SCH (21:00)
[2018-12-20] MEDS: LIPOSYN III 20% 100ML 100 ML IV SCH (21:07)
--- NOTE | 2018-12-20 21:40 | PCM.PROG ---
Progress Note - Progress Note for Day of Date of Exam: 12/19/18 - Subjective Subjective: IS BEING TREATED FOR A SMALL BOWEL OBSTRUCTION, ABDOMINAL MASS, AND A URINARY TRACT INFECTION. TODAY, SHE IS ALERT AND ORIENTED, LYING IN BED ON MORNING ROUNDS. SHE CONTINUES WITH COMPLAINTS OF ABDOMINAL PAIN AND GENERALIZED WEAKNESS, BUT REPORTS SLIGHT IMPROVEMENT TODAY. ON EXAMINATION, HEART IS REGULAR IN RATE AND RHYTHM. BILATERAL LUNGS ARE NOTED WITH DIMINISHED LUNG SOUNDS THROUGHOUT. ABDOMEN IS ROUND, SOFT, AND NOTED WITH DIFFUSE TENDERNESS TO PALPATION. HER VITALS THIS MORNING ARE: 98.7-68-18-97%-120/58. LABS WERE OBTAINED. ABNORMAL LAB VALUES INCLUDE THE FOLLOWING: WBC 10.3, HGB 10.3, HCT 30.4, GLUCOSE 118, AST 8, ALT 6, PREALBUMIN 16.6, TRIGLYCERIDES 172. CULTURE IS POSITIVE FOR GROWTH OF KLEBSIELLA PNEUMONIAE. THIS MORNINGS KUB IS UNREMARKABLE. WE WILL CONTINUE WITH HER IV FLUIDS, IV ANTIBIOTICS, TPN, ALBUMIN, AND CURRENT PLAN OF CARE TODAY. PLANS FOR AN EXPLORATORY LAP TOMORROW. A CT OF THE ABDOMEN AND PELVIS IS SCHEDULED FOR THIS MORNING. OTHERWIS E, WE PLAN TO FOLLOW UP WITH AM LABS AND CONTINUE TO MONITOR. - Past Medical Family Social History Past Med/Fam/Surg Hx: No changes since H&P Allergies: Allergies Penicillins Allergy (Verified 12/14/18 05:11) - Review of Systems ROS: No change since H&P - Vital Signs and I&O's Vital Signs: Temperature 98 F Pulse Rate [Left Brachial] 106 Pulse Rate 94 Respiratory Rate 16 Blood Pressure [Right Arm] 105/54 Blood Pressure [Left Arm] 105/51 Blood Pressure 131/58 O2 Sat by Pulse Oximetry 97 Intake and Output: Intake & Output 12/18/18 12/19/18 12/20/18 12/21/18 11:59 11:59 11:59 11:59 Intake Total 6380 / 6380 4143 / 4143 9191 / 9191 0 / 0 Output Total 1300 / 1300 100 / 100 Balance 6380 / 6380 4143 / 4143 7891 / 7891 -100 / -100 - Physical Exam Oriented: Normal Eyes: Normal Ear: Normal Nose: Normal Throat: Normal Respiratory: Generalized Cardiovascular: Normal : Normal Auscultation: Bowel Sounds: Normal Tenderness: Diffuse, Mild. negative: Rebound, Guarding, Rigidity Skin: Decreased Turgur Musculoskeletal: Normal Psychiatric: Normal Mood Description: Calm Affect: Normal Speech Pattern: Clear, Appropriate - Laboratory and Diagnostics Result Diagrams: 12/19/18 05:20 12/20/18 05:20 Labs: 12/20/18 09:00 Abdomen Gram Stain - Final 12/14/18 02:11 Blood Blood Culture - Final 12/14/18 02:00 Blood Blood Culture - Final 12/13/18 22:45 Urine,Clean Catch Urine Culture - Final Klebsiella Pneumoniae Laboratory WBC 9.9 X10^3/uL (3.6-10.0) 12/19/18 05:20 RBC 3.56 X10^6/uL (3.5-5.4) 12/19/18 05:20 Hgb 10.1 g/dL (12.0-16.0) L 12/19/18 05:20 Hct 29.8 % (36.0-47.0) L 12/19/18 05:20 MCV 83.7 fL (80.0-100.0) 12/19/18 05:20 MCH 28.4 pg (27.0-34.0) 12/19/18 05:20 MCHC 33.9 g/dL (33.0-35.0) 12/19/18 05:20 RDW 16.0 % (11.6-16.5) 12/19/18 05:20 Plt Count 354 X10^3/uL (150.0-450.0) 12/19/18 05:20 MPV 7.4 fL (7.4-11.0) 12/19/18 05:20 Neut % (Auto) 70.3 % (42.0-75.0) 12/19/18 05:20 Lymph % (Auto) 16.1 % (21.0-51.0) L 12/19/18 05:20 [place] % (Auto) 9.8 % (0.0-13.0) 12/19/18 05:20 Eos % (Auto) 3.3 % (0.9-2.9) H 12/19/18 05:20 Baso % (Auto) 0.5 % (0.2-1.0) 12/19/18 05:20 Neut # (Auto) 7.0 x10^3/uL (2.2-4.8) H 12/19/18 05:20 Lymph # (Auto) 1.6 X10^3/uL (1.3-2.9) 12/19/18 05:20 [place] # (Auto) 1.0 x10^3/uL (0.3-0.8) H 12/19/18 05:20 Eos # (Auto) 0.3 x10^3/uL (0.0-0.2) H 12/19/18 05:20 Baso # (Auto) 0.0 X10^3/uL (0.0-0.1) 12/19/18 05:20 Absolute Nucleated RBC 0.0 /100WBC 12/19/18 05:20 Sodium 138 mmol/L (136-145) 12/20/18 05:20 Corrected Sodium TNP 12/20/18 05:20 Potassium 3.8 mmol/L (3.5-5.1) 12/20/18 05:20 Chloride 101 mmol/L (98-107) 12/20/18 05:20 Carbon Dioxide 24.5 mmol/L (21-32) 12/20/18 05:20 BUN 12 mg/dL (7-18) 12/20/18 05:20 Creatinine 0.60 mg/dL (0.55-1.02) 12/20/18 05:20 Est GFR (MDRD) Af Amer > 60 (>60) 12/20/18 05:20 Est GFR (MDRD) Non-Af > 60 (>60) 12/20/18 05:20 Glucose 110 mg/dL (65-99) H 12/20/18 05:20 Calcium 9.4 mg/dL (8.5-10.1) 12/20/18 05:20 Corrected Calcium TNP 12/20/18 05:20 Phosphorus 2.1 mg/dL (2.6-4.7) L 12/18/18 05:06 Magnesium 1.8 mg/dL (1.7-2.9) 12/20/18 05:20 Total Bilirubin 0.30 mg/dL (0.2-1.0) 12/20/18 05:20 AST 8 Units/L (15-37) L 12/20/18 05:20 ALT < 6 Units/L (12-78) L 12/20/18 05:20 Alkaline Phosphatase 61 Units/L (46-116) 12/20/18 05:20 Total Protein 7.4 g/dL (6.4-8.2) 12/20/18 05:20 Albumin 3.8 g/dL (3.4-5.0) 12/20/18 05:20 Globulin 3.6 g/dL (2.5-4.5) 12/20/18 05:20 Albumin/Globulin Ratio 1.1 Ratio (1.1-2.1) 12/20/18 05:20 Prealbumin 16.6 mg/dL (18-35.7) L 12/19/18 05:20 Triglycerides 172 mg/dL (0-150) H 12/18/18 05:06 Carcinoembryonic Ag 3.6 ng/mL 12/14/18 06:55 Specimen Type Catherized urine 12/20/18 08:14 Urine Color Yellow (YELLOW) 12/20/18 08:14 Urine Appearance Slightly hazy (CLEAR) 12/20/18 08:14 Urine pH 7.0 (5.0 - 8.0) 12/20/18 08:14 Ur Specific [place] 1.010 (1.000-1.030) 12/20/18 08:14 Urine Protein Negative (NEGATIVE) 12/20/18 08:14 Urine Glucose (UA) Negative (NEGATIVE) 12/20/18 08:14 Urine Ketones Negative (NEGATIVE) 12/20/18 08:14 Urine Occult Blood 4+ (NEGATIVE) 12/20/18 08:14 Urine Nitrite Negative (NEGATIVE) 12/20/18 08:14 Urine Bilirubin Negative (NEGATIVE) 12/20/18 08:14 Urine Urobilinogen Normal (NORMAL) 12/20/18 08:14 Ur Leukocyte Esterase 1+ (NEGATIVE) 12/20/18 08:14 Urine RBC 3-5 /HPF (NONE SEEN) 12/20/18 08:14 Urine WBC 3-5 /HPF (NONE SEEN) 12/20/18 08:14 Ur Squamous Epith Cells Rare /HPF (NEGATIVE) 12/20/18 08:14 Amorphous Sediment 1+ /HPF (NEGATIVE) 12/20/18 08:14 Urine Bacteria Negative /HPF (NEGATIVE) 12/20/18 08:14 Urine Yeast Rare /HPF (NEGATIVE) 12/13/18 22:45 Ur Culture Indicated? No/not indicated 12/20/18 08:14 Tissue Pathology To follow 12/20/18 10:08 Blood Type O POSITIVE 12/20/18 07:50 Antibody Screen Negative 12/20/18 07:50 - Plan (1) Small bowel obstruction Status: Acute Plan: IV ANTIBIOTICS, CONTINUE TO MONITOR (2) Abdominal mass Status: Acute Qualifiers: Abdominal location: unspecified location Qualified Code(s): R19.00 - Intra- abdominal and pelvic swelling, mass and lump, unspecified site Plan: IV ANTIBIOTICS, IV FLUIDS, SURGICAL CONSULT, CONTINUE TO MONITOR (3) Urinary tract infection Status: Acute Qualifiers: Urinary tract infection type: acute cystitis Hematuria presence: with hematuria Qualified Code(s): N30.01 - Acute cystitis with hematuria Plan: IV CIPRO, IV FLUIDS, CONTINUE TO MONITOR (4) Hypokalemia Status: Acute Plan: REPLACEMENT PER PROTOCOL (5) Hypomagnesemia Status: Acute Plan: REPLACEMENT PER PROTOCOL
[2018-12-21] MEDS: FLAGYL TAB 500 MG PO SCH ×4 (03:14→22:33)
[2018-12-21] MEDS: D5 1/2 NS 1000 ML 1,000 ML IV SCH ×4 (03:15→22:25)
[2018-12-21] MEDS: DILAUDID INJ IVP PRN ×5 (03:24→21:52)
[2018-12-21] MEDS: CARAFATE PO SCH ×4 (05:42→22:33)
[2018-12-21 06:04] LABS: BASOPHILS % (AUTO) 0.2 % (0.2-1.0); HEMOGLOBIN 8.5 g/dL (12.0-16.0); LYMPHOCYTES % (AUTO) 8.3 % (21.0-51.0); MEAN CORPUSCULAR HEMOGLOBIN 28.4 pg (27.0-34.0); MEAN CORPUSCULAR HGB CONC 33.9 g/dL (33.0-35.0); MEAN CORPUSCULAR VOLUME 83.9 fL (80.0-100.0); MEAN PLATELET VOLUME 7.1 fL (7.4-11.0); MONOCYTES # (AUTO) 1.1 x10^3/uL (0.3-0.8); MONOCYTES % (AUTO) 8.9 % (0.0-13.0); NEUTROPHILS # (AUTO) 9.9 x10^3/uL (2.2-4.8); NEUTROPHILS % (AUTO) 82.6 % (42.0-75.0); PLATELET COUNT 357 X10^3/uL (150.0-450.0); RED BLOOD COUNT 2.98 X10^6/uL (3.5-5.4); RED CELL DISTRIBUTION WIDTH 16.5 % (11.6-16.5)
[2018-12-21 06:13] LABS: ALANINE AMINOTRANSFERASE 6 Units/L (12-78); ALBUMIN 3.4 g/dL (3.4-5.0); ALKALINE PHOSPHATASE 46 Units/L (46-116); ASPARTATE AMINO TRANSFERASE 11 Units/L (15-37); BLOOD UREA NITROGEN 12 mg/dL (7-18); CALCIUM 8.6 mg/dL (8.5-10.1); CARBON DIOXIDE 26.4 mmol/L (21-32); CHLORIDE 102 mmol/L (98-107); COR NA(FOR HYPERGLY) 139 mmol/L (136-145); CREATININE 0.53 mg/dL (0.55-1.02); MAGNESIUM 2.2 mg/dL (1.7-2.9); PHOSPHORUS 3.1 mg/dL (2.6-4.7); SODIUM 138 mmol/L (136-145); TOTAL PROTEIN 6.7 g/dL (6.4-8.2); TRIGLYCERIDES 97 mg/dL (0-150); eGFR NON BLACK RACES > 60 (>60)
[2018-12-21] MEDS: DIFLUCAN 200 MG IV PREMIX* 200 MG/100 ML BAG IV SCH (08:18)
[2018-12-21] MEDS: ALBUMIN HUMAN 25%- 100 ML 100 ML IV SCH (08:21)
[2018-12-21] MEDS: CIPRO IV 400 MG PREMIX* 400 MG/200 ML IV.SOLN. IV SCH ×2 (08:22→22:26)
[2018-12-21] MEDS: CLINIMIX 4.25 %/10 % 1,000 ML with TPN ELECTROLYTES 20 ML, MVI INJ (ADULT) 10 ML IV SCH ×3 (09:02)
[2018-12-21] MEDS: VITAMIN D3 PO SCH (09:02)
[2018-12-21] MEDS: FOLIC ACID TAB 1 MG PO SCH (09:03)
[2018-12-21] MEDS: OSCAL+D or CALTRATE+D PO SCH (09:03)
[2018-12-21] MEDS: LEXAPRO PO SCH (09:03)
[2018-12-21] MEDS: PROTONIX INJ 40 MG VIAL IVP SCH ×2 (09:03→22:24)
[2018-12-21] MEDS: NADOLOL 10 MG PO SCH (09:03)
[2018-12-21] MEDS: LOVENOX INJ 40 MG SYR SC SCH (10:53)
--- NOTE | 2018-12-21 12:18 | DR.PROGNOT ---
Hospital Progress Notes - Progress Note for Day of: Progress Note Date: 12/21/18 - Chief Complaint Chief Complaint: feeling better this morning with less pain . s/p small bowel resection . lysis of adhesions and drainage of pelvic abscess from old diverticulitis . - Past Medical Family Social History Past Med/Fam/Surg Hx: No changes since H&P Allergies: Allergies Penicillins Allergy (Verified 12/14/18 05:11) - Review Of Systems ROS: No change since H&P - Vital Signs Vital Signs: Temperature 98.0 F Pulse Rate [Left Brachial] 90 Pulse Rate 94 Respiratory Rate 18 Blood Pressure [Right Arm] 105/54 Blood Pressure [Left Arm] 109/55 Blood Pressure 131/58 O2 Sat by Pulse Oximetry 99 - Physical Exam Oriented: Normal Eyes: Normal Ear: Normal Nose: Normal Throat: Normal Respiratory: Generalized Cardiovascular: Normal : Normal GI:Auscultation: Normal GI:Palpation: Normal GI: Tenderness: Diffuse, Mild. negative: Rebound, Guarding, Rigidity Skin: Decreased Turgur Musculoskeletal: Normal Psychiatric: Normal Mood Description: Calm Affect: Normal Speech Pattern: Clear, Appropriate - Laboratory and Diagnostics Result Diagrams: 12/21/18 05:45 12/21/18 05:45 Labs: 12/20/18 09:00 Abdomen Gram Stain - Final 12/20/18 09:00 Abdomen Wound Culture - Preliminary 12/14/18 02:11 Blood Blood Culture - Final 12/14/18 02:00 Blood Blood Culture - Final 12/13/18 22:45 Urine,Clean Catch Urine Culture - Final Klebsiella Pneumoniae Laboratory WBC 12.0 X10^3/uL (3.6-10.0) H 12/21/18 05:45 RBC 2.98 X10^6/uL (3.5-5.4) L 12/21/18 05:45 Hgb 8.5 g/dL (12.0-16.0) L 12/21/18 05:45 Hct 25.0 % (36.0-47.0) L 12/21/18 05:45 MCV 83.9 fL (80.0-100.0) 12/21/18 05:45 MCH 28.4 pg (27.0-34.0) 12/21/18 05:45 MCHC 33.9 g/dL (33.0-35.0) 12/21/18 05:45 RDW 16.5 % (11.6-16.5) 12/21/18 05:45 Plt Count 357 X10^3/uL (150.0-450.0) 12/21/18 05:45 MPV 7.1 fL (7.4-11.0) L 12/21/18 05:45 Neut % (Auto) 82.6 % (42.0-75.0) H 12/21/18 05:45 Lymph % (Auto) 8.3 % (21.0-51.0) L 12/21/18 05:45 [place] % (Auto) 8.9 % (0.0-13.0) 12/21/18 05:45 Eos % (Auto) 0.0 % (0.9-2.9) L 12/21/18 05:45 Baso % (Auto) 0.2 % (0.2-1.0) 12/21/18 05:45 Neut # (Auto) 9.9 x10^3/uL (2.2-4.8) H 12/21/18 05:45 Lymph # (Auto) 1.0 X10^3/uL (1.3-2.9) L 12/21/18 05:45 [place] # (Auto) 1.1 x10^3/uL (0.3-0.8) H 12/21/18 05:45 Eos # (Auto) 0.0 x10^3/uL (0.0-0.2) 12/21/18 05:45 Baso # (Auto) 0.0 X10^3/uL (0.0-0.1) 12/21/18 05:45 Absolute Nucleated RBC 0.0 /100WBC 12/21/18 05:45 Sodium 138 mmol/L (136-145) 12/21/18 05:45 Corrected Sodium 139 mmol/L (136-145) 12/21/18 05:45 Potassium 3.9 mmol/L (3.5-5.1) 12/21/18 05:45 Chloride 102 mmol/L (98-107) 12/21/18 05:45 Carbon Dioxide 26.4 mmol/L (21-32) 12/21/18 05:45 BUN 12 mg/dL (7-18) 12/21/18 05:45 Creatinine 0.53 mg/dL (0.55-1.02) L 12/21/18 05:45 Est GFR (MDRD) Af Amer > 60 (>60) 12/21/18 05:45 Est GFR (MDRD) Non-Af > 60 (>60) 12/21/18 05:45 Glucose 147 mg/dL (65-99) H 12/21/18 05:45 Calcium 8.6 mg/dL (8.5-10.1) 12/21/18 05:45 Corrected Calcium TNP 12/21/18 05:45 Phosphorus 3.1 mg/dL (2.6-4.7) 12/21/18 05:45 Magnesium 2.2 mg/dL (1.7-2.9) 12/21/18 05:45 Total Bilirubin 0.20 mg/dL (0.2-1.0) 12/21/18 05:45 AST 11 Units/L (15-37) L 12/21/18 05:45 ALT 6 Units/L (12-78) L 12/21/18 05:45 Alkaline Phosphatase 46 Units/L (46-116) 12/21/18 05:45 Total Protein 6.7 g/dL (6.4-8.2) 12/21/18 05:45 Albumin 3.4 g/dL (3.4-5.0) 12/21/18 05:45 Globulin 3.3 g/dL (2.5-4.5) 12/21/18 05:45 Albumin/Globulin Ratio 1.0 Ratio (1.1-2.1) L 12/21/18 05:45 Prealbumin 16.6 mg/dL (18-35.7) L 12/19/18 05:20 Triglycerides 97 mg/dL (0-150) 12/21/18 05:45 Carcinoembryonic Ag 3.6 ng/mL 12/14/18 06:55 Specimen Type Catherized urine 12/20/18 08:14 Urine Color Yellow (YELLOW) 12/20/18 08:14 Urine Appearance Slightly hazy (CLEAR) 12/20/18 08:14 Urine pH 7.0 (5.0 - 8.0) 12/20/18 08:14 Ur Specific [place] 1.010 (1.000-1.030) 12/20/18 08:14 Urine Protein Negative (NEGATIVE) 12/20/18 08:14 Urine Glucose (UA) Negative (NEGATIVE) 12/20/18 08:14 Urine Ketones Negative (NEGATIVE) 12/20/18 08:14 Urine Occult Blood 4+ (NEGATIVE) 12/20/18 08:14 Urine Nitrite Negative (NEGATIVE) 12/20/18 08:14 Urine Bilirubin Negative (NEGATIVE) 12/20/18 08:14 Urine Urobilinogen Normal (NORMAL) 12/20/18 08:14 Ur Leukocyte Esterase 1+ (NEGATIVE) 12/20/18 08:14 Urine RBC 3-5 /HPF (NONE SEEN) 12/20/18 08:14 Urine WBC 3-5 /HPF (NONE SEEN) 12/20/18 08:14 Ur Squamous Epith Cells Rare /HPF (NEGATIVE) 12/20/18 08:14 Amorphous Sediment 1+ /HPF (NEGATIVE) 12/20/18 08:14 Urine Bacteria Negative /HPF (NEGATIVE) 12/20/18 08:14 Urine Yeast Rare /HPF (NEGATIVE) 12/13/18 22:45 Ur Culture Indicated? No/not indicated 12/20/18 08:14 Tissue Pathology To follow 12/20/18 10:08 Blood Type O POSITIVE 12/20/18 07:50 Antibody Screen Negative 12/20/18 07:50 - Assessment and Plan 1: PO laparotomy lysis of adhesions , small bowel resection x2. will D/C NGT and [place] . ambulate . same IV and nutritiona support . keep ANUSHA. start liquid siet - Problem Patient Problems: Patient Problems Hypoproteinemia (Acute) E77.8 Small bowel obstruction (Acute) K56.609 Leukocytosis (Acute) D72.829 Hyponatremia (Acute) E87.1 Abdominal mass (Acute) R19.00 Urinary tract infection (Acute) N39.0 Hypokalemia (Acute) E87.6 Hypomagnesemia (Acute) E83.42
[2018-12-21] MEDS ORDERED: PROCALAMINE 3 % 1,000 ML with MVI INJ (ADULT) 10 ML IV SCH ×2 (16:00)
[2018-12-21] MEDS ORDERED: PROCALAMINE 3 % 1,000 ML ONE (16:11)
[2018-12-21] MEDS: PROCALAMINE 3 % 1,000 ML IV SCH (16:23)
--- NOTE | 2018-12-21 20:31 | PCM.PROG ---
Progress Note - Progress Note for Day of Date of Exam: 12/20/18 - Subjective Subjective: IS BEING TREATED FOR A SMALL BOWEL OBSTRUCTION, ABDOMINAL MASS, AND A URINARY TRACT INFECTION DUE TO KLEBSIELLA ONEUMONIAE. TODAY, SHE IS ALERT AND ORIENTED, LYING IN BED ON MORNING ROUNDS. SHE CONTINUES WITH COMPLAINTS OF ABDOMINAL PAIN AND GENERALIZED WEAKNESS, BUT CONTINUES TO REPORT SLIGHT IMPROVEMENT TODAY. ON EXAMINATION, HEART IS REGULAR IN RATE AND RHYTHM. BILATERAL LUNGS ARE NOTED WITH DIMINISHED LUNG SOUNDS THROUGHOUT. ABDOMEN IS ROUND, SOFT, AND NOTED WITH DIFFUSE TENDERNESS TO PALPATION. HER VITALS THIS MORNING ARE: 98.7-76-18-97%-105/54. LABS WERE OBTAINED. ABNORMAL LAB VALUES INCLUDE THE FOLLOWING: HGB 10.1, HCT 29.8, GLUCOSE 110, AST 8, ALT <6. SHE IS SCHEDULED FOR AN EXPLORATORY LAP TODAY. WE WILL CONTINUE WITH HER IV FLUIDS, IV ANTIBIOTICS, TPN, ALBUMIN, AND CURRENT PLAN OF CARE TODAY. OTHERWISE, WE PLAN TO FOLLOW UP WITH AM LABS AND CONTINUE TO MONITOR. - Past Medical Family Social History Past Med/Fam/Surg Hx: No changes since H&P Allergies: Allergies Penicillins Allergy (Verified 12/14/18 05:11) - Review of Systems ROS: No change since H&P - Vital Signs and I&O's Vital Signs: Temperature 98.4 F Pulse Rate [Left Brachial] 80 Pulse Rate 94 Respiratory Rate 18 Blood Pressure [Right Arm] 105/54 Blood Pressure [Left Arm] 103/54 Blood Pressure 131/58 O2 Sat by Pulse Oximetry 100 Intake and Output: Intake & Output 12/19/18 12/20/18 12/21/18 12/22/18 11:59 11:59 11:59 11:59 Intake Total 4143 / 4143 9191 / 9191 1300 / 1300 1675 / 1675 Output Total 1300 / 1300 2200 / 2200 Balance 4143 / 4143 7891 / 7891 -900 / -900 1675 / 1675 - Physical Exam Oriented: Normal Eyes: Normal Ear: Normal Nose: Normal Throat: Normal Respiratory: Generalized Cardiovascular: Normal : Normal Auscultation: Bowel Sounds: Normal Tenderness: Diffuse, Mild. negative: Rebound, Guarding, Rigidity Skin: Decreased Turgur Musculoskeletal: Normal Psychiatric: Normal Mood Description: Calm Affect: Normal Speech Pattern: Clear, Appropriate - Laboratory and Diagnostics Result Diagrams: 12/21/18 05:45 12/21/18 05:45 Labs: 12/20/18 09:00 Abdomen Gram Stain - Final 12/20/18 09:00 Abdomen Wound Culture - Preliminary 12/14/18 02:11 Blood Blood Culture - Final 12/14/18 02:00 Blood Blood Culture - Final 12/13/18 22:45 Urine,Clean Catch Urine Culture - Final Klebsiella Pneumoniae Laboratory WBC 12.0 X10^3/uL (3.6-10.0) H 12/21/18 05:45 RBC 2.98 X10^6/uL (3.5-5.4) L 12/21/18 05:45 Hgb 8.5 g/dL (12.0-16.0) L 12/21/18 05:45 Hct 25.0 % (36.0-47.0) L 12/21/18 05:45 MCV 83.9 fL (80.0-100.0) 12/21/18 05:45 MCH 28.4 pg (27.0-34.0) 12/21/18 05:45 MCHC 33.9 g/dL (33.0-35.0) 12/21/18 05:45 RDW 16.5 % (11.6-16.5) 12/21/18 05:45 Plt Count 357 X10^3/uL (150.0-450.0) 12/21/18 05:45 MPV 7.1 fL (7.4-11.0) L 12/21/18 05:45 Neut % (Auto) 82.6 % (42.0-75.0) H 12/21/18 05:45 Lymph % (Auto) 8.3 % (21.0-51.0) L 12/21/18 05:45 [place] % (Auto) 8.9 % (0.0-13.0) 12/21/18 05:45 Eos % (Auto) 0.0 % (0.9-2.9) L 12/21/18 05:45 Baso % (Auto) 0.2 % (0.2-1.0) 12/21/18 05:45 Neut # (Auto) 9.9 x10^3/uL (2.2-4.8) H 12/21/18 05:45 Lymph # (Auto) 1.0 X10^3/uL (1.3-2.9) L 12/21/18 05:45 [place] # (Auto) 1.1 x10^3/uL (0.3-0.8) H 12/21/18 05:45 Eos # (Auto) 0.0 x10^3/uL (0.0-0.2) 12/21/18 05:45 Baso # (Auto) 0.0 X10^3/uL (0.0-0.1) 12/21/18 05:45 Absolute Nucleated RBC 0.0 /100WBC 12/21/18 05:45 Sodium 138 mmol/L (136-145) 12/21/18 05:45 Corrected Sodium 139 mmol/L (136-145) 12/21/18 05:45 Potassium 3.9 mmol/L (3.5-5.1) 12/21/18 05:45 Chloride 102 mmol/L (98-107) 12/21/18 05:45 Carbon Dioxide 26.4 mmol/L (21-32) 12/21/18 05:45 BUN 12 mg/dL (7-18) 12/21/18 05:45 Creatinine 0.53 mg/dL (0.55-1.02) L 12/21/18 05:45 Est GFR (MDRD) Af Amer > 60 (>60) 12/21/18 05:45 Est GFR (MDRD) Non-Af > 60 (>60) 12/21/18 05:45 Glucose 147 mg/dL (65-99) H 12/21/18 05:45 Calcium 8.6 mg/dL (8.5-10.1) 12/21/18 05:45 Corrected Calcium TNP 12/21/18 05:45 Phosphorus 3.1 mg/dL (2.6-4.7) 12/21/18 05:45 Magnesium 2.2 mg/dL (1.7-2.9) 12/21/18 05:45 Total Bilirubin 0.20 mg/dL (0.2-1.0) 12/21/18 05:45 AST 11 Units/L (15-37) L 12/21/18 05:45 ALT 6 Units/L (12-78) L 12/21/18 05:45 Alkaline Phosphatase 46 Units/L (46-116) 12/21/18 05:45 Total Protein 6.7 g/dL (6.4-8.2) 12/21/18 05:45 Albumin 3.4 g/dL (3.4-5.0) 12/21/18 05:45 Globulin 3.3 g/dL (2.5-4.5) 12/21/18 05:45 Albumin/Globulin Ratio 1.0 Ratio (1.1-2.1) L 12/21/18 05:45 Prealbumin 16.6 mg/dL (18-35.7) L 12/19/18 05:20 Triglycerides 97 mg/dL (0-150) 12/21/18 05:45 Carcinoembryonic Ag 3.6 ng/mL 12/14/18 06:55 Specimen Type Catherized urine 12/20/18 08:14 Urine Color Yellow (YELLOW) 12/20/18 08:14 Urine Appearance Slightly hazy (CLEAR) 12/20/18 08:14 Urine pH 7.0 (5.0 - 8.0) 12/20/18 08:14 Ur Specific [place] 1.010 (1.000-1.030) 12/20/18 08:14 Urine Protein Negative (NEGATIVE) 12/20/18 08:14 Urine Glucose (UA) Negative (NEGATIVE) 12/20/18 08:14 Urine Ketones Negative (NEGATIVE) 12/20/18 08:14 Urine Occult Blood 4+ (NEGATIVE) 12/20/18 08:14 Urine Nitrite Negative (NEGATIVE) 12/20/18 08:14 Urine Bilirubin Negative (NEGATIVE) 12/20/18 08:14 Urine Urobilinogen Normal (NORMAL) 12/20/18 08:14 Ur Leukocyte Esterase 1+ (NEGATIVE) 12/20/18 08:14 Urine RBC 3-5 /HPF (NONE SEEN) 12/20/18 08:14 Urine WBC 3-5 /HPF (NONE SEEN) 12/20/18 08:14 Ur Squamous Epith Cells Rare /HPF (NEGATIVE) 12/20/18 08:14 Amorphous Sediment 1+ /HPF (NEGATIVE) 12/20/18 08:14 Urine Bacteria Negative /HPF (NEGATIVE) 12/20/18 08:14 Urine Yeast Rare /HPF (NEGATIVE) 12/13/18 22:45 Ur Culture Indicated? No/not indicated 12/20/18 08:14 Tissue Pathology To follow 12/20/18 10:08 Blood Type O POSITIVE 12/20/18 07:50 Antibody Screen Negative 12/20/18 07:50 - Plan (1) Small bowel obstruction Status: Acute Plan: IV ANTIBIOTICS, CONTINUE TO MONITOR (2) Abdominal mass Status: Acute Qualifiers: Abdominal location: unspecified location Qualified Code(s): R19.00 - Intra- abdominal and pelvic swelling, mass and lump, unspecified site Plan: IV ANTIBIOTICS, IV FLUIDS, SURGICAL CONSULT, CONTINUE TO MONITOR (3) Urinary tract infection Status: Acute Qualifiers: Urinary tract infection type: acute cystitis Hematuria presence: with hematuria Qualified Code(s): N30.01 - Acute cystitis with hematuria Plan: IV CIPRO, IV FLUIDS, CONTINUE TO MONITOR (4) Hypokalemia Status: Acute Plan: REPLACEMENT PER PROTOCOL (5) Hypomagnesemia Status: Acute Plan: REPLACEMENT PER PROTOCOL
[2018-12-21] MEDS: LIPOSYN III 20% 100ML 100 ML IV SCH (22:27)
[2018-12-22] MEDS: FLAGYL TAB 500 MG PO SCH ×4 (03:03→21:15)
[2018-12-22] MEDS: DILAUDID INJ IVP PRN ×4 (03:27→22:07)
[2018-12-22] MEDS: D5 1/2 NS 1000 ML 1,000 ML IV SCH ×3 (05:45→22:06)
[2018-12-22] MEDS: CARAFATE PO SCH ×4 (05:45→21:14)
[2018-12-22 06:38] LABS: BASOPHILS % (AUTO) 0.4 % (0.2-1.0); EOSINOPHILS # (AUTO) 0.1 x10^3/uL (0.0-0.2); HEMATOCRIT 24.4 % (36.0-47.0); HEMOGLOBIN 8.4 g/dL (12.0-16.0); LYMPHOCYTES # (AUTO) 2.3 X10^3/uL (1.3-2.9); MEAN CORPUSCULAR HEMOGLOBIN 29.1 pg (27.0-34.0); MEAN CORPUSCULAR HGB CONC 34.4 g/dL (33.0-35.0); MEAN CORPUSCULAR VOLUME 84.6 fL (80.0-100.0); MEAN PLATELET VOLUME 7.6 fL (7.4-11.0); MONOCYTES # (AUTO) 0.8 x10^3/uL (0.3-0.8); MONOCYTES % (AUTO) 7.1 % (0.0-13.0); NEUTROPHILS # (AUTO) 8.1 x10^3/uL (2.2-4.8); NEUTROPHILS % (AUTO) 71.5 % (42.0-75.0); PLATELET COUNT 447 X10^3/uL (150.0-450.0); RED BLOOD COUNT 2.89 X10^6/uL (3.5-5.4); RED CELL DISTRIBUTION WIDTH 15.9 % (11.6-16.5); WHITE BLOOD COUNT 11.3 X10^3/uL (3.6-10.0)
[2018-12-22 06:42] LABS: BLOOD UREA NITROGEN 9 mg/dL (7-18); CALCIUM 8.7 mg/dL (8.5-10.1); CARBON DIOXIDE 28.5 mmol/L (21-32); CHLORIDE 101 mmol/L (98-107); CREATININE 0.53 mg/dL (0.55-1.02); SODIUM 139 mmol/L (136-145); eGFR NON BLACK RACES > 60 (>60)
[2018-12-22] MEDS: ALBUMIN HUMAN 25%- 100 ML 100 ML IV SCH (08:37)
[2018-12-22] MEDS: DIFLUCAN 200 MG IV PREMIX* 200 MG/100 ML BAG IV SCH (08:37)
[2018-12-22] MEDS: PROTONIX INJ 40 MG VIAL IVP SCH ×2 (08:38→21:15)
[2018-12-22] MEDS: CIPRO IV 400 MG PREMIX* 400 MG/200 ML IV.SOLN. IV SCH ×2 (08:38→21:15)
[2018-12-22] MEDS: LOVENOX INJ 40 MG SYR SC SCH (08:38)
[2018-12-22] MEDS ORDERED: LEXAPRO ONE (09:15)
[2018-12-22] MEDS: LEXAPRO PO SCH (09:17)
[2018-12-22] MEDS: FOLIC ACID TAB 1 MG PO SCH (09:17)
[2018-12-22] MEDS: VITAMIN D3 PO SCH (09:17)
[2018-12-22] MEDS: OSCAL+D or CALTRATE+D PO SCH (09:17)
[2018-12-22] MEDS: NADOLOL 10 MG PO SCH (09:18)
[2018-12-22] MEDS ORDERED: TORADOL 30 MG VIAL ONE (09:32)
[2018-12-22] MEDS ORDERED: ULTANE GAS ONE (09:32)
[2018-12-22] MEDS ORDERED: EPHEDRINE SULFATE INJ ONE (09:32)
[2018-12-22] MEDS ORDERED: ROBINUL ONE (09:32)
[2018-12-22] MEDS ORDERED: NEOSTIGMINE INJ ONE (09:32)
--- NOTE | 2018-12-22 10:34 | DR.PROGNOT ---
Hospital Progress Notes - Progress Note for Day of: Progress Note Date: 12/22/18 - Chief Complaint Chief Complaint: no changes , moderate abdominal pain , no nausea or vomiting. s/p small bowel resection . lysis of adhesions and drainage of pelvic abscess from an old diverticulitis and abscess formation with dense adhesions . c/o weaknes Lt leg . - Past Medical Family Social History Past Med/Fam/Surg Hx: No changes since H&P Allergies: Allergies Penicillins Allergy (Verified 12/14/18 05:11) - Review Of Systems ROS: No change since H&P - Vital Signs Vital Signs: Temperature 98.0 F Pulse Rate [Left Brachial] 87 Pulse Rate 94 Respiratory Rate 14 Blood Pressure [Right Arm] 105/54 Blood Pressure [Left Arm] 138/63 Blood Pressure 131/58 O2 Sat by Pulse Oximetry 96 - Physical Exam Oriented: Normal Eyes: Normal Ear: Normal Nose: Normal Throat: Normal Respiratory: Generalized Cardiovascular: Normal : Normal GI:Auscultation: Normal GI:Palpation: Normal GI: Tenderness: Diffuse, Mild. negative: Rebound, Guarding, Rigidity Skin: Decreased Turgur Musculoskeletal: Thigh (difficulty adduction Lt thigh with normal sensation ) Psychiatric: Normal Mood Description: Calm Affect: Normal Speech Pattern: Clear, Appropriate - Laboratory and Diagnostics Result Diagrams: 12/22/18 05:15 12/22/18 05:15 Labs: 12/20/18 09:00 Abdomen Gram Stain - Final 12/20/18 09:00 Abdomen Wound Culture - Preliminary 12/14/18 02:11 Blood Blood Culture - Final 12/14/18 02:00 Blood Blood Culture - Final 12/13/18 22:45 Urine,Clean Catch Urine Culture - Final Klebsiella Pneumoniae Laboratory WBC 11.3 X10^3/uL (3.6-10.0) H 12/22/18 05:15 RBC 2.89 X10^6/uL (3.5-5.4) L 12/22/18 05:15 Hgb 8.4 g/dL (12.0-16.0) L 12/22/18 05:15 Hct 24.4 % (36.0-47.0) L 12/22/18 05:15 MCV 84.6 fL (80.0-100.0) 12/22/18 05:15 MCH 29.1 pg (27.0-34.0) 12/22/18 05:15 MCHC 34.4 g/dL (33.0-35.0) 12/22/18 05:15 RDW 15.9 % (11.6-16.5) 12/22/18 05:15 Plt Count 447 X10^3/uL (150.0-450.0) 12/22/18 05:15 MPV 7.6 fL (7.4-11.0) 12/22/18 05:15 Neut % (Auto) 71.5 % (42.0-75.0) 12/22/18 05:15 Lymph % (Auto) 20.0 % (21.0-51.0) L 12/22/18 05:15 [place] % (Auto) 7.1 % (0.0-13.0) 12/22/18 05:15 Eos % (Auto) 1.0 % (0.9-2.9) 12/22/18 05:15 Baso % (Auto) 0.4 % (0.2-1.0) 12/22/18 05:15 Neut # (Auto) 8.1 x10^3/uL (2.2-4.8) H 12/22/18 05:15 Lymph # (Auto) 2.3 X10^3/uL (1.3-2.9) 12/22/18 05:15 [place] # (Auto) 0.8 x10^3/uL (0.3-0.8) 12/22/18 05:15 Eos # (Auto) 0.1 x10^3/uL (0.0-0.2) 12/22/18 05:15 Baso # (Auto) 0.0 X10^3/uL (0.0-0.1) 12/22/18 05:15 Absolute Nucleated RBC 0.2 /100WBC 12/22/18 05:15 Sodium 139 mmol/L (136-145) 12/22/18 05:15 Corrected Sodium TNP 12/22/18 05:15 Potassium 3.2 mmol/L (3.5-5.1) L 12/22/18 05:15 Chloride 101 mmol/L (98-107) 12/22/18 05:15 Carbon Dioxide 28.5 mmol/L (21-32) 12/22/18 05:15 BUN 9 mg/dL (7-18) 12/22/18 05:15 Creatinine 0.53 mg/dL (0.55-1.02) L 12/22/18 05:15 Est GFR (MDRD) Af Amer > 60 (>60) 12/22/18 05:15 Est GFR (MDRD) Non-Af > 60 (>60) 12/22/18 05:15 Glucose 100 mg/dL (65-99) H 12/22/18 05:15 Calcium 8.7 mg/dL (8.5-10.1) 12/22/18 05:15 Corrected Calcium TNP 12/21/18 05:45 Phosphorus 3.1 mg/dL (2.6-4.7) 12/21/18 05:45 Magnesium 2.2 mg/dL (1.7-2.9) 12/21/18 05:45 Total Bilirubin 0.20 mg/dL (0.2-1.0) 12/21/18 05:45 AST 11 Units/L (15-37) L 12/21/18 05:45 ALT 6 Units/L (12-78) L 12/21/18 05:45 Alkaline Phosphatase 46 Units/L (46-116) 12/21/18 05:45 Total Protein 6.7 g/dL (6.4-8.2) 12/21/18 05:45 Albumin 3.4 g/dL (3.4-5.0) 12/21/18 05:45 Globulin 3.3 g/dL (2.5-4.5) 12/21/18 05:45 Albumin/Globulin Ratio 1.0 Ratio (1.1-2.1) L 12/21/18 05:45 Prealbumin 16.6 mg/dL (18-35.7) L 12/19/18 05:20 Triglycerides 97 mg/dL (0-150) 12/21/18 05:45 Carcinoembryonic Ag 3.6 ng/mL 12/14/18 06:55 Specimen Type Catherized urine 12/20/18 08:14 Urine Color Yellow (YELLOW) 12/20/18 08:14 Urine Appearance Slightly hazy (CLEAR) 12/20/18 08:14 Urine pH 7.0 (5.0 - 8.0) 12/20/18 08:14 Ur Specific [place] 1.010 (1.000-1.030) 12/20/18 08:14 Urine Protein Negative (NEGATIVE) 12/20/18 08:14 Urine Glucose (UA) Negative (NEGATIVE) 12/20/18 08:14 Urine Ketones Negative (NEGATIVE) 12/20/18 08:14 Urine Occult Blood 4+ (NEGATIVE) 12/20/18 08:14 Urine Nitrite Negative (NEGATIVE) 12/20/18 08:14 Urine Bilirubin Negative (NEGATIVE) 12/20/18 08:14 Urine Urobilinogen Normal (NORMAL) 12/20/18 08:14 Ur Leukocyte Esterase 1+ (NEGATIVE) 12/20/18 08:14 Urine RBC 3-5 /HPF (NONE SEEN) 12/20/18 08:14 Urine WBC 3-5 /HPF (NONE SEEN) 12/20/18 08:14 Ur Squamous Epith Cells Rare /HPF (NEGATIVE) 12/20/18 08:14 Amorphous Sediment 1+ /HPF (NEGATIVE) 12/20/18 08:14 Urine Bacteria Negative /HPF (NEGATIVE) 12/20/18 08:14 Urine Yeast Rare /HPF (NEGATIVE) 12/13/18 22:45 Ur Culture Indicated? No/not indicated 12/20/18 08:14 Tissue Pathology To follow 12/20/18 10:08 Blood Type O POSITIVE 12/20/18 07:50 Antibody Screen Negative 12/20/18 07:50 - Assessment and Plan 1: PO laparotomy lysis of adhesions , small bowel resection x2. same IV and nutritional support . start full liquid . PT to ambulate with assistance . awaiting path and culture report . - Problem Patient Problems: Patient Problems Hypoproteinemia (Acute) E77.8 Small bowel obstruction (Acute) K56.609 Leukocytosis (Acute) D72.829 Hyponatremia (Acute) E87.1 Abdominal mass (Acute) R19.00 Urinary tract infection (Acute) N39.0 Hypokalemia (Acute) E87.6 Hypomagnesemia (Acute) E83.42
--- NOTE | 2018-12-22 12:37 | CT ---
History: Altered mental status and lower extremity weakness Study: CT head without contrast. Sagittal and coronal reformations were provided. Dose reduction techniques were utilized. Comparison: None Findings: The ventricles and sulci are normal in size and configuration. There is no intracranial hemorrhage or mass or edema. The calvarium is intact. The sella turcica is partially empty. Subarachnoid spaces are prominent over the convexity of the brain. Impression: No evidence for acute intracranial disease Reported By:
--- NOTE | 2018-12-22 21:06 | PCM.PROG ---
Progress Note - Progress Note for Day of Date of Exam: 12/21/18 - Subjective Subjective: IS BEING TREATED FOR A SMALL BOWEL OBSTRUCTION, ABDOMINAL MASS, AND A URINARY TRACT INFECTION DUE TO KLEBSIELLA ONEUMONIAE. TODAY, SHE IS ALERT AND ORIENTED, LYING IN BED ON MORNING ROUNDS. SHE CONTINUES WITH COMPLAINTS OF ABDOMINAL PAIN AND GENERALIZED WEAKNESS, BUT CONTINUES TO REPORT SLIGHT IMPROVEMENT TODAY. ON EXAMINATION, THERE IS A NG TUBE NOTED TO LOW INTERMITTENT SUCTION. HEART IS REGULAR IN RATE AND RHYTHM. BILATERAL LUNGS ARE NOTED WITH DIMINISHED LUNG SOUNDS THROUGHOUT. ABDOMEN IS ROUND, SOFT, AND NOTED WITH DIFFUSE TENDERNESS TO PALPATION. HER VITALS THIS MORNING ARE: 98.0-90-20-99%-109/55. LABS WERE OBTAINED. ABNORMAL LAB VALUES INCLUDE THE FOLLOWING: WBC 12.0, RBC 2.98, HGB 8.5, HCT 25.0, CREATININE 0.53, GLUCOSE 147, AST 11, ALT 6. PERFORMED AN EXPLORATORY LAPAROTOMY YESTERDAY. FINDINGS INCLUDED: 1. Extensive abdominal adhesions. 2. Residual abscess around the rectosigmoid with dense adhesions involving the small bowel with attachment to the rectosigmoid. Most likely, the patient had recurrent episodes of diverticulitis with pelvic abscess but was drained in the past as an appendiceal abscess, most likely representing abscess from diverticulitis. The rectosigmoid was attached to the pelvis and left lower quadrant. Resection was difficult to perform at this time and it was felt it is better to treat the patient with antibiotics and reevaluate the colon in the future. A recent colonoscopy last week did not reveal any intraluminal lesion of the colon.]WE WILL CONTINUE WITH HER IV FLUIDS, IV ANTIBIOTICS, PROCAL, ALBUMIN, AND CURRENT PLAN OF CARE TODAY. OTHERWISE, WE PLAN TO FOLLOW UP WITH AM LABS AND CONTINUE TO MONITOR. - Past Medical Family Social History Past Med/Fam/Surg Hx: No changes since H&P Allergies: Allergies Penicillins Allergy (Verified 12/14/18 05:11) - Review of Systems ROS: No change since H&P - Vital Signs and I&O's Vital Signs: Temperature 98.1 F Pulse Rate [Left Brachial] 85 Pulse Rate 94 Respiratory Rate 18 Blood Pressure [Right Arm] 105/54 Blood Pressure [Left Arm] 109/55 Blood Pressure 131/58 O2 Sat by Pulse Oximetry 100 Intake and Output: Intake & Output 12/20/18 12/21/18 12/22/18 12/23/18 11:59 11:59 11:59 11:59 Intake Total 9191 / 9191 1300 / 1300 2915 / 2915 1520 / 1520 Output Total 1300 / 1300 2200 / 2200 400 / 400 800 / 800 Balance 7891 / 7891 -900 / -900 2515 / 2515 720 / 720 - Physical Exam Oriented: Normal Eyes: Normal Ear: Normal Nose: Normal Throat: Normal Respiratory: Generalized Cardiovascular: Normal : Normal Auscultation: Bowel Sounds: Normal Tenderness: Diffuse, Mild. negative: Rebound, Guarding, Rigidity Skin: Decreased Turgur Musculoskeletal: Thigh (difficulty adduction Lt thigh with normal sensation ) Psychiatric: Normal Mood Description: Calm Affect: Normal Speech Pattern: Clear, Appropriate - Laboratory and Diagnostics Result Diagrams: 12/22/18 05:15 12/22/18 05:15 Labs: 12/20/18 09:00 Abdomen Gram Stain - Final 12/20/18 09:00 Abdomen Wound Culture - Preliminary 12/14/18 02:11 Blood Blood Culture - Final 12/14/18 02:00 Blood Blood Culture - Final 12/13/18 22:45 Urine,Clean Catch Urine Culture - Final Klebsiella Pneumoniae Laboratory WBC 11.3 X10^3/uL (3.6-10.0) H 12/22/18 05:15 RBC 2.89 X10^6/uL (3.5-5.4) L 12/22/18 05:15 Hgb 8.4 g/dL (12.0-16.0) L 12/22/18 05:15 Hct 24.4 % (36.0-47.0) L 12/22/18 05:15 MCV 84.6 fL (80.0-100.0) 12/22/18 05:15 MCH 29.1 pg (27.0-34.0) 12/22/18 05:15 MCHC 34.4 g/dL (33.0-35.0) 12/22/18 05:15 RDW 15.9 % (11.6-16.5) 12/22/18 05:15 Plt Count 447 X10^3/uL (150.0-450.0) 12/22/18 05:15 MPV 7.6 fL (7.4-11.0) 12/22/18 05:15 Neut % (Auto) 71.5 % (42.0-75.0) 12/22/18 05:15 Lymph % (Auto) 20.0 % (21.0-51.0) L 12/22/18 05:15 [place] % (Auto) 7.1 % (0.0-13.0) 12/22/18 05:15 Eos % (Auto) 1.0 % (0.9-2.9) 12/22/18 05:15 Baso % (Auto) 0.4 % (0.2-1.0) 12/22/18 05:15 Neut # (Auto) 8.1 x10^3/uL (2.2-4.8) H 12/22/18 05:15 Lymph # (Auto) 2.3 X10^3/uL (1.3-2.9) 12/22/18 05:15 [place] # (Auto) 0.8 x10^3/uL (0.3-0.8) 12/22/18 05:15 Eos # (Auto) 0.1 x10^3/uL (0.0-0.2) 12/22/18 05:15 Baso # (Auto) 0.0 X10^3/uL (0.0-0.1) 12/22/18 05:15 Absolute Nucleated RBC 0.2 /100WBC 12/22/18 05:15 Sodium 139 mmol/L (136-145) 12/22/18 05:15 Corrected Sodium TNP 12/22/18 05:15 Potassium 3.2 mmol/L (3.5-5.1) L 12/22/18 05:15 Chloride 101 mmol/L (98-107) 12/22/18 05:15 Carbon Dioxide 28.5 mmol/L (21-32) 12/22/18 05:15 BUN 9 mg/dL (7-18) 12/22/18 05:15 Creatinine 0.53 mg/dL (0.55-1.02) L 12/22/18 05:15 Est GFR (MDRD) Af Amer > 60 (>60) 12/22/18 05:15 Est GFR (MDRD) Non-Af > 60 (>60) 12/22/18 05:15 Glucose 100 mg/dL (65-99) H 12/22/18 05:15 Calcium 8.7 mg/dL (8.5-10.1) 12/22/18 05:15 Corrected Calcium TNP 12/21/18 05:45 Phosphorus 3.1 mg/dL (2.6-4.7) 12/21/18 05:45 Magnesium 2.2 mg/dL (1.7-2.9) 12/21/18 05:45 Total Bilirubin 0.20 mg/dL (0.2-1.0) 12/21/18 05:45 AST 11 Units/L (15-37) L 12/21/18 05:45 ALT 6 Units/L (12-78) L 12/21/18 05:45 Alkaline Phosphatase 46 Units/L (46-116) 12/21/18 05:45 Total Protein 6.7 g/dL (6.4-8.2) 12/21/18 05:45 Albumin 3.4 g/dL (3.4-5.0) 12/21/18 05:45 Globulin 3.3 g/dL (2.5-4.5) 12/21/18 05:45 Albumin/Globulin Ratio 1.0 Ratio (1.1-2.1) L 12/21/18 05:45 Prealbumin 16.6 mg/dL (18-35.7) L 12/19/18 05:20 Triglycerides 97 mg/dL (0-150) 12/21/18 05:45 Carcinoembryonic Ag 3.6 ng/mL 12/14/18 06:55 Specimen Type Catherized urine 12/20/18 08:14 Urine Color Yellow (YELLOW) 12/20/18 08:14 Urine Appearance Slightly hazy (CLEAR) 12/20/18 08:14 Urine pH 7.0 (5.0 - 8.0) 12/20/18 08:14 Ur Specific [place] 1.010 (1.000-1.030) 12/20/18 08:14 Urine Protein Negative (NEGATIVE) 12/20/18 08:14 Urine Glucose (UA) Negative (NEGATIVE) 12/20/18 08:14 Urine Ketones Negative (NEGATIVE) 12/20/18 08:14 Urine Occult Blood 4+ (NEGATIVE) 12/20/18 08:14 Urine Nitrite Negative (NEGATIVE) 12/20/18 08:14 Urine Bilirubin Negative (NEGATIVE) 12/20/18 08:14 Urine Urobilinogen Normal (NORMAL) 12/20/18 08:14 Ur Leukocyte Esterase 1+ (NEGATIVE) 12/20/18 08:14 Urine RBC 3-5 /HPF (NONE SEEN) 12/20/18 08:14 Urine WBC 3-5 /HPF (NONE SEEN) 12/20/18 08:14 Ur Squamous Epith Cells Rare /HPF (NEGATIVE) 12/20/18 08:14 Amorphous Sediment 1+ /HPF (NEGATIVE) 12/20/18 08:14 Urine Bacteria Negative /HPF (NEGATIVE) 12/20/18 08:14 Urine Yeast Rare /HPF (NEGATIVE) 12/13/18 22:45 Ur Culture Indicated? No/not indicated 12/20/18 08:14 Tissue Pathology To follow 12/20/18 10:08 Blood Type O POSITIVE 12/20/18 07:50 Antibody Screen Negative 12/20/18 07:50 - Plan (1) Small bowel obstruction Status: Acute Plan: IV ANTIBIOTICS, CONTINUE TO MONITOR (2) Abdominal mass Status: Acute Qualifiers: Abdominal location: unspecified location Qualified Code(s): R19.00 - Intra- abdominal and pelvic swelling, mass and lump, unspecified site Plan: IV ANTIBIOTICS, IV FLUIDS, SURGICAL CONSULT, CONTINUE TO MONITOR (3) Urinary tract infection Status: Acute Qualifiers: Urinary tract infection type: acute cystitis Hematuria presence: with hematuria Qualified Code(s): N30.01 - Acute cystitis with hematuria Plan: IV CIPRO, IV FLUIDS, CONTINUE TO MONITOR (4) Hypokalemia Status: Acute Plan: REPLACEMENT PER PROTOCOL (5) Hypomagnesemia Status: Acute Plan: REPLACEMENT PER PROTOCOL
[2018-12-22] MEDS: K-DUR TAB 20 MEQ PO PRN (21:14)
[2018-12-22] MEDS: PROCALAMINE 3 % 1,000 ML IV SCH (22:07)
[2018-12-23] MEDS: FLAGYL TAB 500 MG PO SCH ×4 (03:08→21:11)
[2018-12-23] MEDS: CARAFATE PO SCH ×4 (05:30→21:11)
[2018-12-23] MEDS: D5 1/2 NS 1000 ML 1,000 ML IV SCH ×3 (05:30→21:11)
[2018-12-23] MEDS: DILAUDID INJ IVP PRN ×4 (05:42→21:11)
[2018-12-23 06:54] LABS: BASOPHILS % (AUTO) 0.5 % (0.2-1.0); EOSINOPHILS # (AUTO) 0.2 x10^3/uL (0.0-0.2); EOSINOPHILS % (AUTO) 2.8 % (0.9-2.9); HEMATOCRIT 24.7 % (36.0-47.0); HEMOGLOBIN 8.6 g/dL (12.0-16.0); LYMPHOCYTES # (AUTO) 1.8 X10^3/uL (1.3-2.9); MEAN CORPUSCULAR HGB CONC 34.8 g/dL (33.0-35.0); MEAN CORPUSCULAR VOLUME 83.5 fL (80.0-100.0); MEAN PLATELET VOLUME 7.3 fL (7.4-11.0); MONOCYTES # (AUTO) 0.6 x10^3/uL (0.3-0.8); MONOCYTES % (AUTO) 8.3 % (0.0-13.0); NEUTROPHILS % (AUTO) 65.4 % (42.0-75.0); PLATELET COUNT 473 X10^3/uL (150.0-450.0); RED BLOOD COUNT 2.96 X10^6/uL (3.5-5.4); RED CELL DISTRIBUTION WIDTH 16.1 % (11.6-16.5); WHITE BLOOD COUNT 7.7 X10^3/uL (3.6-10.0)
[2018-12-23 07:02] LABS: BLOOD UREA NITROGEN 9 mg/dL (7-18); CALCIUM 9.3 mg/dL (8.5-10.1); CARBON DIOXIDE 27.2 mmol/L (21-32); CHLORIDE 102 mmol/L (98-107); CREATININE 0.52 mg/dL (0.55-1.02); SODIUM 138 mmol/L (136-145); eGFR NON BLACK RACES > 60 (>60)
[2018-12-23] MEDS ORDERED: LEXAPRO ONE (08:36)
[2018-12-23] MEDS: DIFLUCAN 200 MG IV PREMIX* 200 MG/100 ML BAG IV SCH (10:37)
[2018-12-23] MEDS: CIPRO IV 400 MG PREMIX* 400 MG/200 ML IV.SOLN. IV SCH ×2 (10:37→21:11)
[2018-12-23] MEDS: FOLIC ACID TAB 1 MG PO SCH (10:38)
[2018-12-23] MEDS: ALBUMIN HUMAN 25%- 100 ML 100 ML IV SCH (10:38)
[2018-12-23] MEDS: PROTONIX INJ 40 MG VIAL IVP SCH ×2 (10:38→21:11)
[2018-12-23] MEDS: OSCAL+D or CALTRATE+D PO SCH (10:38)
[2018-12-23] MEDS: LEXAPRO PO SCH (10:38)
[2018-12-23] MEDS: LOVENOX INJ 40 MG SYR SC SCH (10:39)
[2018-12-23] MEDS: NADOLOL 10 MG PO SCH (10:56)
[2018-12-23] MEDS: VITAMIN D3 PO SCH (10:57)
--- NOTE | 2018-12-23 14:59 | DR.PROGNOT ---
Hospital Progress Notes - Progress Note for Day of: Progress Note Date: 12/23/18 - Chief Complaint Chief Complaint: moderate abdominal pain , no nausea or vomiting .tolerating diet . no BM yet . s/p small bowel resection . lysis of adhesions and drainage of pelvic abscess from an old diverticulitis and abscess formation with dense adhesions . leg weakness is the same . ( able to ambulate to bathroom ). - Past Medical Family Social History Past Med/Fam/Surg Hx: No changes since H&P Allergies: Allergies Penicillins Allergy (Verified 12/14/18 05:11) - Review Of Systems ROS: No change since H&P - Vital Signs Vital Signs: Temperature 97.8 F Pulse Rate [Left Brachial] 90 Pulse Rate 94 Respiratory Rate 12 Blood Pressure [Right Arm] 105/54 Blood Pressure [Left Arm] 126/60 Blood Pressure 131/58 O2 Sat by Pulse Oximetry 97 - Physical Exam Oriented: Normal Eyes: Normal Ear: Normal Nose: Normal Throat: Normal Respiratory: Generalized Cardiovascular: Normal : Normal GI:Auscultation: Normal GI:Palpation: Normal GI: Tenderness: Diffuse, Mild. negative: Rebound, Guarding, Rigidity Skin: Decreased Turgur Musculoskeletal: Thigh (difficulty adduction Lt thigh with normal sensation ) Psychiatric: Normal Mood Description: Calm Affect: Normal Speech Pattern: Clear, Appropriate - Laboratory and Diagnostics Result Diagrams: 12/23/18 05:22 12/23/18 05:22 Labs: 12/20/18 09:00 Abdomen Gram Stain - Final 12/20/18 09:00 Abdomen Wound Culture - Preliminary 12/14/18 02:11 Blood Blood Culture - Final 12/14/18 02:00 Blood Blood Culture - Final 12/13/18 22:45 Urine,Clean Catch Urine Culture - Final Klebsiella Pneumoniae Laboratory WBC 7.7 X10^3/uL (3.6-10.0) 12/23/18 05:22 RBC 2.96 X10^6/uL (3.5-5.4) L 12/23/18 05:22 Hgb 8.6 g/dL (12.0-16.0) L 12/23/18 05:22 Hct 24.7 % (36.0-47.0) L 12/23/18 05:22 MCV 83.5 fL (80.0-100.0) 12/23/18 05:22 MCH 29.0 pg (27.0-34.0) 12/23/18 05:22 MCHC 34.8 g/dL (33.0-35.0) 12/23/18 05:22 RDW 16.1 % (11.6-16.5) 12/23/18 05:22 Plt Count 473 X10^3/uL (150.0-450.0) H 12/23/18 05:22 MPV 7.3 fL (7.4-11.0) L 12/23/18 05:22 Neut % (Auto) 65.4 % (42.0-75.0) 12/23/18 05:22 Lymph % (Auto) 23.0 % (21.0-51.0) 12/23/18 05:22 [place] % (Auto) 8.3 % (0.0-13.0) 12/23/18 05:22 Eos % (Auto) 2.8 % (0.9-2.9) 12/23/18 05:22 Baso % (Auto) 0.5 % (0.2-1.0) 12/23/18 05:22 Neut # (Auto) 5.0 x10^3/uL (2.2-4.8) H 12/23/18 05:22 Lymph # (Auto) 1.8 X10^3/uL (1.3-2.9) 12/23/18 05:22 [place] # (Auto) 0.6 x10^3/uL (0.3-0.8) 12/23/18 05:22 Eos # (Auto) 0.2 x10^3/uL (0.0-0.2) 12/23/18 05:22 Baso # (Auto) 0.0 X10^3/uL (0.0-0.1) 12/23/18 05:22 Absolute Nucleated RBC 0.0 /100WBC 12/23/18 05:22 Sodium 138 mmol/L (136-145) 12/23/18 05:22 Corrected Sodium TNP 12/23/18 05:22 Potassium 4.0 mmol/L (3.5-5.1) 12/23/18 05:22 Chloride 102 mmol/L (98-107) 12/23/18 05:22 Carbon Dioxide 27.2 mmol/L (21-32) 12/23/18 05:22 BUN 9 mg/dL (7-18) 12/23/18 05:22 Creatinine 0.52 mg/dL (0.55-1.02) L 12/23/18 05:22 Est GFR (MDRD) Af Amer > 60 (>60) 12/23/18 05:22 Est GFR (MDRD) Non-Af > 60 (>60) 12/23/18 05:22 Glucose 104 mg/dL (65-99) H 12/23/18 05:22 Calcium 9.3 mg/dL (8.5-10.1) 12/23/18 05:22 Corrected Calcium TNP 12/21/18 05:45 Phosphorus 3.1 mg/dL (2.6-4.7) 12/21/18 05:45 Magnesium 2.2 mg/dL (1.7-2.9) 12/21/18 05:45 Total Bilirubin 0.20 mg/dL (0.2-1.0) 12/21/18 05:45 AST 11 Units/L (15-37) L 12/21/18 05:45 ALT 6 Units/L (12-78) L 12/21/18 05:45 Alkaline Phosphatase 46 Units/L (46-116) 12/21/18 05:45 Total Protein 6.7 g/dL (6.4-8.2) 12/21/18 05:45 Albumin 3.4 g/dL (3.4-5.0) 12/21/18 05:45 Globulin 3.3 g/dL (2.5-4.5) 12/21/18 05:45 Albumin/Globulin Ratio 1.0 Ratio (1.1-2.1) L 12/21/18 05:45 Prealbumin 16.6 mg/dL (18-35.7) L 12/19/18 05:20 Triglycerides 97 mg/dL (0-150) 12/21/18 05:45 Carcinoembryonic Ag 3.6 ng/mL 12/14/18 06:55 Specimen Type Catherized urine 12/20/18 08:14 Urine Color Yellow (YELLOW) 12/20/18 08:14 Urine Appearance Slightly hazy (CLEAR) 12/20/18 08:14 Urine pH 7.0 (5.0 - 8.0) 12/20/18 08:14 Ur Specific [place] 1.010 (1.000-1.030) 12/20/18 08:14 Urine Protein Negative (NEGATIVE) 12/20/18 08:14 Urine Glucose (UA) Negative (NEGATIVE) 12/20/18 08:14 Urine Ketones Negative (NEGATIVE) 12/20/18 08:14 Urine Occult Blood 4+ (NEGATIVE) 12/20/18 08:14 Urine Nitrite Negative (NEGATIVE) 12/20/18 08:14 Urine Bilirubin Negative (NEGATIVE) 12/20/18 08:14 Urine Urobilinogen Normal (NORMAL) 12/20/18 08:14 Ur Leukocyte Esterase 1+ (NEGATIVE) 12/20/18 08:14 Urine RBC 3-5 /HPF (NONE SEEN) 12/20/18 08:14 Urine WBC 3-5 /HPF (NONE SEEN) 12/20/18 08:14 Ur Squamous Epith Cells Rare /HPF (NEGATIVE) 12/20/18 08:14 Amorphous Sediment 1+ /HPF (NEGATIVE) 12/20/18 08:14 Urine Bacteria Negative /HPF (NEGATIVE) 12/20/18 08:14 Urine Yeast Rare /HPF (NEGATIVE) 12/13/18 22:45 Ur Culture Indicated? No/not indicated 12/20/18 08:14 Tissue Pathology To follow 12/20/18 10:08 Blood Type O POSITIVE 12/20/18 07:50 Antibody Screen Negative 12/20/18 07:50 - Assessment and Plan 1: PO laparotomy lysis of adhesions , small bowel resection x2. same IV and nutritional support . start full liquid . PT to ambulate with assistance . awaiting path and culture report . - Problem Patient Problems: Patient Problems Hypoproteinemia (Acute) E77.8 Small bowel obstruction (Acute) K56.609 Leukocytosis (Acute) D72.829 Hyponatremia (Acute) E87.1 Abdominal mass (Acute) R19.00 Urinary tract infection (Acute) N39.0 Hypokalemia (Acute) E87.6 Hypomagnesemia (Acute) E83.42
[2018-12-23] MEDS: PROCALAMINE 3 % 1,000 ML IV SCH (21:10)
--- NOTE | 2018-12-23 21:45 | PCM.PROG ---
Progress Note - Progress Note for Day of Date of Exam: 12/22/18 - Subjective Subjective: IS BEING TREATED FOR A SMALL BOWEL OBSTRUCTION, ABDOMINAL MASS, AND A URINARY TRACT INFECTION DUE TO KLEBSIELLA PNEUMONIAE. TODAY, SHE IS ALERT AND ORIENTED, LYING IN BED ON MORNING ROUNDS. SHE CONTINUES WITH COMPLAINTS OF ABDOMINAL PAIN AND GENERALIZED WEAKNESS. SHE REPORTS MODERATE WEAKNESS TO LOWER EXTREMITIES. ON EXAMINATION, HEART IS REGULAR IN RATE AND RHYTHM. BILATERAL LUNGS ARE NOTED WITH DIMINISHED LUNG SOUNDS THROUGHOUT. ABDOMEN IS ROUND, SOFT, AND NOTED WITH DIFFUSE TENDERNESS TO PALPATION. HER VITALS THIS MORNING ARE: 98.0-87-20-96%-138/63. LABS WERE OBTAINED. ABNORMAL LAB VALUES INCLUDE THE FOLLOWING: WBC 11.3, RBC 2.89, HGB 8.4, HCT 24.4, POTASSIUM 3.2, CREATININE 0.53, GLUCOSE 100. PERFORMED AN EXPLORATORY LAPAROTOMY TWO DAYS AGO WHICH REVEALED: 1. Extensive abdominal adhesions. 2. Residual abscess around the rectosigmoid with dense adhesions involving the small bowel with attachment to the rectosigmoid. Most likely, the patient had recurrent episodes of diverticulitis with pelvic abscess but was drained in the past as an appendiceal abscess, most likely representing abscess from diverticulitis. The rectosigmoid was attached to the pelvis and left lower quadrant. Resection was difficult to perform at this time and it was felt it is better to treat the patient with antibiotics and reevaluate the colon in the future. A recent colonoscopy last week did not reveal any intraluminal lesion of the colon. WE WILL CONTINUE WITH HER IV FLUIDS, IV ANTIBIOTICS, PROCAL, ALBUMIN, AND CURRENT PLAN OF CARE TODAY. WE WILL HAVE PHYSICAL THERAPY EVALUATE PATIENT AND WE WILL OBTAIN A BRAN CT. OTHERWISE, WE PLAN TO FOLLOW UP WITH AM LABS AND CONTINUE TO MONITOR. - Past Medical Family Social History Past Med/Fam/Surg Hx: No changes since H&P Allergies: Allergies Penicillins Allergy (Verified 12/14/18 05:11) - Review of Systems ROS: No change since H&P - Vital Signs and I&O's Vital Signs: Temperature 98.3 F Pulse Rate [Left Brachial] 74 Pulse Rate 94 Respiratory Rate 14 Blood Pressure [Right Arm] 105/54 Blood Pressure [Left Arm] 105/50 Blood Pressure 131/58 O2 Sat by Pulse Oximetry 99 Intake and Output: Intake & Output 08/12/0212/22/18 12/23/18 12/24/18 11:59 11:59 11:59 11:59 Intake Total 1300 / 1300 2915 / 2915 3290 / 3290 3420 / 3420 Output Total 2200 / 2200 400 / 400 3350 / 3350 2700 / 2700 Balance -900 / -900 2515 / 2515 -60 / -60 720 / 720 - Physical Exam Oriented: Normal Eyes: Normal Ear: Normal Nose: Normal Throat: Normal Respiratory: Generalized Cardiovascular: Normal : Normal Auscultation: Bowel Sounds: Normal Tenderness: Diffuse, Mild. negative: Rebound, Guarding, Rigidity Skin: Decreased Turgur Musculoskeletal: Thigh (difficulty adduction Lt thigh with normal sensation ) Psychiatric: Normal Mood Description: Calm Affect: Normal Speech Pattern: Clear, Appropriate - Laboratory and Diagnostics Result Diagrams: 12/23/18 05:22 12/23/18 05:22 Labs: 12/20/18 09:00 Abdomen Gram Stain - Final 12/20/18 09:00 Abdomen Wound Culture - Preliminary 12/14/18 02:11 Blood Blood Culture - Final 12/14/18 02:00 Blood Blood Culture - Final 12/13/18 22:45 Urine,Clean Catch Urine Culture - Final Klebsiella Pneumoniae Laboratory WBC 7.7 X10^3/uL (3.6-10.0) 12/23/18 05:22 RBC 2.96 X10^6/uL (3.5-5.4) L 12/23/18 05:22 Hgb 8.6 g/dL (12.0-16.0) L 12/23/18 05:22 Hct 24.7 % (36.0-47.0) L 12/23/18 05:22 MCV 83.5 fL (80.0-100.0) 12/23/18 05:22 MCH 29.0 pg (27.0-34.0) 12/23/18 05:22 MCHC 34.8 g/dL (33.0-35.0) 12/23/18 05:22 RDW 16.1 % (11.6-16.5) 12/23/18 05:22 Plt Count 473 X10^3/uL (150.0-450.0) H 12/23/18 05:22 MPV 7.3 fL (7.4-11.0) L 12/23/18 05:22 Neut % (Auto) 65.4 % (42.0-75.0) 12/23/18 05:22 Lymph % (Auto) 23.0 % (21.0-51.0) 12/23/18 05:22 [place] % (Auto) 8.3 % (0.0-13.0) 12/23/18 05:22 Eos % (Auto) 2.8 % (0.9-2.9) 12/23/18 05:22 Baso % (Auto) 0.5 % (0.2-1.0) 12/23/18 05:22 Neut # (Auto) 5.0 x10^3/uL (2.2-4.8) H 12/23/18 05:22 Lymph # (Auto) 1.8 X10^3/uL (1.3-2.9) 12/23/18 05:22 [place] # (Auto) 0.6 x10^3/uL (0.3-0.8) 12/23/18 05:22 Eos # (Auto) 0.2 x10^3/uL (0.0-0.2) 12/23/18 05:22 Baso # (Auto) 0.0 X10^3/uL (0.0-0.1) 12/23/18 05:22 Absolute Nucleated RBC 0.0 /100WBC 12/23/18 05:22 Sodium 138 mmol/L (136-145) 12/23/18 05:22 Corrected Sodium TNP 12/23/18 05:22 Potassium 4.0 mmol/L (3.5-5.1) 12/23/18 05:22 Chloride 102 mmol/L (98-107) 12/23/18 05:22 Carbon Dioxide 27.2 mmol/L (21-32) 12/23/18 05:22 BUN 9 mg/dL (7-18) 12/23/18 05:22 Creatinine 0.52 mg/dL (0.55-1.02) L 12/23/18 05:22 Est GFR (MDRD) Af Amer > 60 (>60) 12/23/18 05:22 Est GFR (MDRD) Non-Af > 60 (>60) 12/23/18 05:22 Glucose 104 mg/dL (65-99) H 12/23/18 05:22 Calcium 9.3 mg/dL (8.5-10.1) 12/23/18 05:22 Corrected Calcium TNP 12/21/18 05:45 Phosphorus 3.1 mg/dL (2.6-4.7) 12/21/18 05:45 Magnesium 2.2 mg/dL (1.7-2.9) 12/21/18 05:45 Total Bilirubin 0.20 mg/dL (0.2-1.0) 12/21/18 05:45 AST 11 Units/L (15-37) L 12/21/18 05:45 ALT 6 Units/L (12-78) L 12/21/18 05:45 Alkaline Phosphatase 46 Units/L (46-116) 12/21/18 05:45 Total Protein 6.7 g/dL (6.4-8.2) 12/21/18 05:45 Albumin 3.4 g/dL (3.4-5.0) 12/21/18 05:45 Globulin 3.3 g/dL (2.5-4.5) 12/21/18 05:45 Albumin/Globulin Ratio 1.0 Ratio (1.1-2.1) L 12/21/18 05:45 Prealbumin 16.6 mg/dL (18-35.7) L 12/19/18 05:20 Triglycerides 97 mg/dL (0-150) 12/21/18 05:45 Carcinoembryonic Ag 3.6 ng/mL 12/14/18 06:55 Specimen Type Catherized urine 12/20/18 08:14 Urine Color Yellow (YELLOW) 12/20/18 08:14 Urine Appearance Slightly hazy (CLEAR) 12/20/18 08:14 Urine pH 7.0 (5.0 - 8.0) 12/20/18 08:14 Ur Specific [place] 1.010 (1.000-1.030) 12/20/18 08:14 Urine Protein Negative (NEGATIVE) 12/20/18 08:14 Urine Glucose (UA) Negative (NEGATIVE) 12/20/18 08:14 Urine Ketones Negative (NEGATIVE) 12/20/18 08:14 Urine Occult Blood 4+ (NEGATIVE) 12/20/18 08:14 Urine Nitrite Negative (NEGATIVE) 12/20/18 08:14 Urine Bilirubin Negative (NEGATIVE) 12/20/18 08:14 Urine Urobilinogen Normal (NORMAL) 12/20/18 08:14 Ur Leukocyte Esterase 1+ (NEGATIVE) 12/20/18 08:14 Urine RBC 3-5 /HPF (NONE SEEN) 12/20/18 08:14 Urine WBC 3-5 /HPF (NONE SEEN) 12/20/18 08:14 Ur Squamous Epith Cells Rare /HPF (NEGATIVE) 12/20/18 08:14 Amorphous Sediment 1+ /HPF (NEGATIVE) 12/20/18 08:14 Urine Bacteria Negative /HPF (NEGATIVE) 12/20/18 08:14 Urine Yeast Rare /HPF (NEGATIVE) 12/13/18 22:45 Ur Culture Indicated? No/not indicated 12/20/18 08:14 Tissue Pathology To follow 12/20/18 10:08 Blood Type O POSITIVE 12/20/18 07:50 Antibody Screen Negative 12/20/18 07:50 - Plan (1) Small bowel obstruction Status: Acute Plan: IV ANTIBIOTICS, CONTINUE TO MONITOR (2) Abdominal mass Status: Acute Qualifiers: Abdominal location: unspecified location Qualified Code(s): R19.00 - Intra- abdominal and pelvic swelling, mass and lump, unspecified site Plan: IV ANTIBIOTICS, IV FLUIDS, CONTINUE TO MONITOR (3) Urinary tract infection Status: Acute Qualifiers: Urinary tract infection type: acute cystitis Hematuria presence: with hematuria Qualified Code(s): N30.01 - Acute cystitis with hematuria Plan: IV CIPRO, IV FLUIDS, CONTINUE TO MONITOR (4) Hypokalemia Status: Acute Plan: REPLACEMENT PER PROTOCOL (5) Hypomagnesemia Status: Acute Plan: REPLACEMENT PER PROTOCOL (6) Generalized weakness Status: Acute Plan: OBTAIN BRAIN CT, PHYSICAL THERAPY CONSULT
[2018-12-24] MEDS: FLAGYL TAB 500 MG PO SCH ×4 (03:45→21:48)
[2018-12-24] MEDS: DILAUDID INJ IVP PRN ×3 (04:00→17:56)
[2018-12-24] MEDS: D5 1/2 NS 1000 ML 1,000 ML IV SCH ×3 (04:28→21:48)
[2018-12-24 05:38] LABS: BASOPHILS % (AUTO) 0.5 % (0.2-1.0); EOSINOPHILS # (AUTO) 0.2 x10^3/uL (0.0-0.2); EOSINOPHILS % (AUTO) 2.5 % (0.9-2.9); HEMATOCRIT 23.8 % (36.0-47.0); HEMOGLOBIN 8.2 g/dL (12.0-16.0); LYMPHOCYTES # (AUTO) 1.2 X10^3/uL (1.3-2.9); LYMPHOCYTES % (AUTO) 11.8 % (21.0-51.0); MEAN CORPUSCULAR HEMOGLOBIN 29.2 pg (27.0-34.0); MEAN CORPUSCULAR HGB CONC 34.6 g/dL (33.0-35.0); MEAN CORPUSCULAR VOLUME 84.3 fL (80.0-100.0); MEAN PLATELET VOLUME 7.5 fL (7.4-11.0); MONOCYTES # (AUTO) 0.7 x10^3/uL (0.3-0.8); MONOCYTES % (AUTO) 6.7 % (0.0-13.0); NEUTROPHILS # (AUTO) 7.7 x10^3/uL (2.2-4.8); NEUTROPHILS % (AUTO) 78.5 % (42.0-75.0); PLATELET COUNT 483 X10^3/uL (150.0-450.0); RED BLOOD COUNT 2.82 X10^6/uL (3.5-5.4); RED CELL DISTRIBUTION WIDTH 16.5 % (11.6-16.5); WHITE BLOOD COUNT 9.8 X10^3/uL (3.6-10.0)
[2018-12-24 05:59] LABS: ALANINE AMINOTRANSFERASE 10 Units/L (12-78); ALBUMIN 3.8 g/dL (3.4-5.0); ALKALINE PHOSPHATASE 66 Units/L (46-116); ASPARTATE AMINO TRANSFERASE 13 Units/L (15-37); BLOOD UREA NITROGEN 9 mg/dL (7-18); CALCIUM 9.1 mg/dL (8.5-10.1); CARBON DIOXIDE 26.3 mmol/L (21-32); CHLORIDE 101 mmol/L (98-107); COR NA(FOR HYPERGLY) 139 mmol/L (136-145); CREATININE 0.56 mg/dL (0.55-1.02); SODIUM 138 mmol/L (136-145); TOTAL PROTEIN 6.8 g/dL (6.4-8.2); eGFR NON BLACK RACES > 60 (>60)
[2018-12-24] MEDS: CARAFATE PO SCH ×4 (06:15→21:48)
[2018-12-24] MEDS ORDERED: LEXAPRO ONE (08:55)
[2018-12-24] MEDS: CIPRO IV 400 MG PREMIX* 400 MG/200 ML IV.SOLN. IV SCH ×2 (09:07→21:48)
[2018-12-24] MEDS: DIFLUCAN 200 MG IV PREMIX* 200 MG/100 ML BAG IV SCH (09:07)
[2018-12-24] MEDS: PROCALAMINE 3 % 1,000 ML IV SCH ×2 (09:07→17:14)
[2018-12-24] MEDS: KLOR-CON PO PRN (09:08)
[2018-12-24] MEDS: LEXAPRO PO SCH (09:09)
[2018-12-24] MEDS: FOLIC ACID TAB 1 MG PO SCH (09:09)
[2018-12-24] MEDS: ALBUMIN HUMAN 25%- 100 ML 100 ML IV SCH (09:09)
[2018-12-24] MEDS: PROTONIX INJ 40 MG VIAL IVP SCH ×2 (09:09→21:48)
[2018-12-24] MEDS: OSCAL+D or CALTRATE+D PO SCH (09:09)
[2018-12-24] MEDS: LOVENOX INJ 40 MG SYR SC SCH (09:10)
[2018-12-24] MEDS: NADOLOL 10 MG PO SCH (09:12)
[2018-12-24] MEDS: ZOFRAN INJ 4 MG VIAL IVP PRN (10:44)
[2018-12-24] MEDS: VITAMIN D3 PO SCH (14:22)
--- NOTE | 2018-12-24 21:32 | PCM.PROG ---
Progress Note - Progress Note for Day of Date of Exam: 12/23/18 - Subjective Subjective: IS BEING TREATED FOR A SMALL BOWEL OBSTRUCTION, ABDOMINAL MASS, AND A URINARY TRACT INFECTION DUE TO KLEBSIELLA PNEUMONIAE. PERFORMED AN EXPLORATORY LAPROSCOPY WHICH REVEALED EXTENSIVE ABDOMINAL ADHESIONS AND A RESIDUAL ABSCESS AROUNG THE RECTOSIGMOID. SHE IS STATUS POST SMALL BOWEL RESECTION AND DRAINAGE OF OLD ABSCESS. TODAY, SHE IS ALERT AND ORIENTED, LYING IN BED ON MORNING ROUNDS. SHE CONTINUES WITH COMPLAINTS OF ABDOMINAL PAIN AND GENERALIZED WEAKNESS. SHE DENIES A BOWEL MOVEMENT. ON EXAMINATION, HEART IS REGULAR IN RATE AND RHYTHM. BILATERAL LUNGS ARE NOTED WITH DIMINISHED LUNG SOUNDS THROUGHOUT. ABDOMEN IS ROUND, SOFT, AND NOTED WITH DIFFUSE TENDERNESS TO PALPATION. HER VITALS THIS MORNING ARE: 98.9-76-18-96%-104/57. LABS WERE OBTAINED. ABNORMAL LAB VALUES INCLUDE THE FOLLOWING: RBC 2.96, HGB 8.6, HCT 24.7, PLT COUNT 473, CREATININE 0.52, GLUCOSE 104. WE WILL CONTINUE WITH HER IV FLUIDS, IV ANTIBIOTICS, PROCAL, ALBUMIN, AND CURRENT PLAN OF CARE TODAY. OTHERWISE, WE PLAN TO FOLLOW UP WITH AM LABS AND CONTINUE TO MONITOR. - Past Medical Family Social History Past Med/Fam/Surg Hx: No changes since H&P Allergies: Allergies Penicillins Allergy (Verified 12/14/18 05:11) - Review of Systems ROS: No change since H&P - Vital Signs and I&O's Vital Signs: Temperature 98.2 F Pulse Rate [Left Brachial] 78 Pulse Rate 94 Respiratory Rate 20 Blood Pressure [Right Arm] 105/54 Blood Pressure [Left Arm] 120/58 Blood Pressure 131/58 O2 Sat by Pulse Oximetry 98 Intake and Output: Intake & Output 12/22/18 12/23/18 12/24/18 12/25/18 11:59 11:59 11:59 11:59 Intake Total 2915 / 2915 3290 / 3290 5100 / 5100 360 / 360 Output Total 400 / 400 3350 / 3350 5450 / 5450 1700 / 1700 Balance 2515 / 2515 -60 / -60 -350 / -350 -1340 / -1340 - Physical Exam Oriented: Normal Eyes: Normal Ear: Normal Nose: Normal Throat: Normal Respiratory: Generalized Cardiovascular: Normal : Normal Auscultation: Bowel Sounds: Normal Palpation: Normal Tenderness: Diffuse, Mild. negative: Rebound, Guarding, Rigidity Skin: Decreased Turgur Musculoskeletal: Thigh (difficulty adduction Lt thigh with normal sensation ) Psychiatric: Normal Mood Description: Calm Affect: Normal Speech Pattern: Clear, Appropriate - Laboratory and Diagnostics Result Diagrams: 12/24/18 04:52 12/24/18 04:52 Labs: 12/20/18 09:00 Abdomen Gram Stain - Final 12/20/18 09:00 Abdomen Wound Culture - Preliminary 12/14/18 02:11 Blood Blood Culture - Final 12/14/18 02:00 Blood Blood Culture - Final 12/13/18 22:45 Urine,Clean Catch Urine Culture - Final Klebsiella Pneumoniae Laboratory WBC 9.8 X10^3/uL (3.6-10.0) 12/24/18 04:52 RBC 2.82 X10^6/uL (3.5-5.4) L 12/24/18 04:52 Hgb 8.2 g/dL (12.0-16.0) L 12/24/18 04:52 Hct 23.8 % (36.0-47.0) L 12/24/18 04:52 MCV 84.3 fL (80.0-100.0) 12/24/18 04:52 MCH 29.2 pg (27.0-34.0) 12/24/18 04:52 MCHC 34.6 g/dL (33.0-35.0) 12/24/18 04:52 RDW 16.5 % (11.6-16.5) 12/24/18 04:52 Plt Count 483 X10^3/uL (150.0-450.0) H 12/24/18 04:52 MPV 7.5 fL (7.4-11.0) 12/24/18 04:52 Neut % (Auto) 78.5 % (42.0-75.0) H 12/24/18 04:52 Lymph % (Auto) 11.8 % (21.0-51.0) L 12/24/18 04:52 [place] % (Auto) 6.7 % (0.0-13.0) 12/24/18 04:52 Eos % (Auto) 2.5 % (0.9-2.9) 12/24/18 04:52 Baso % (Auto) 0.5 % (0.2-1.0) 12/24/18 04:52 Neut # (Auto) 7.7 x10^3/uL (2.2-4.8) H 12/24/18 04:52 Lymph # (Auto) 1.2 X10^3/uL (1.3-2.9) L 12/24/18 04:52 [place] # (Auto) 0.7 x10^3/uL (0.3-0.8) 12/24/18 04:52 Eos # (Auto) 0.2 x10^3/uL (0.0-0.2) 12/24/18 04:52 Baso # (Auto) 0.0 X10^3/uL (0.0-0.1) 12/24/18 04:52 Absolute Nucleated RBC 0.0 /100WBC 12/24/18 04:52 Sodium 138 mmol/L (136-145) 12/24/18 04:52 Corrected Sodium 139 mmol/L (136-145) 12/24/18 04:52 Potassium 3.8 mmol/L (3.5-5.1) 12/24/18 04:52 Chloride 101 mmol/L (98-107) 12/24/18 04:52 Carbon Dioxide 26.3 mmol/L (21-32) 12/24/18 04:52 BUN 9 mg/dL (7-18) 12/24/18 04:52 Creatinine 0.56 mg/dL (0.55-1.02) 12/24/18 04:52 Est GFR (MDRD) Af Amer > 60 (>60) 12/24/18 04:52 Est GFR (MDRD) Non-Af > 60 (>60) 12/24/18 04:52 Glucose 142 mg/dL (65-99) H 12/24/18 04:52 Calcium 9.1 mg/dL (8.5-10.1) 12/24/18 04:52 Corrected Calcium TNP 12/24/18 04:52 Phosphorus 3.1 mg/dL (2.6-4.7) 12/21/18 05:45 Magnesium 2.2 mg/dL (1.7-2.9) 12/21/18 05:45 Total Bilirubin 0.40 mg/dL (0.2-1.0) 12/24/18 04:52 AST 13 Units/L (15-37) L 12/24/18 04:52 ALT 10 Units/L (12-78) L 12/24/18 04:52 Alkaline Phosphatase 66 Units/L (46-116) 12/24/18 04:52 Total Protein 6.8 g/dL (6.4-8.2) 12/24/18 04:52 Albumin 3.8 g/dL (3.4-5.0) 12/24/18 04:52 Globulin 3.0 g/dL (2.5-4.5) 12/24/18 04:52 Albumin/Globulin Ratio 1.3 Ratio (1.1-2.1) 12/24/18 04:52 Prealbumin 16.6 mg/dL (18-35.7) L 12/19/18 05:20 Triglycerides 97 mg/dL (0-150) 12/21/18 05:45 Carcinoembryonic Ag 3.6 ng/mL 12/14/18 06:55 Specimen Type Catherized urine 12/20/18 08:14 Urine Color Yellow (YELLOW) 12/20/18 08:14 Urine Appearance Slightly hazy (CLEAR) 12/20/18 08:14 Urine pH 7.0 (5.0 - 8.0) 12/20/18 08:14 Ur Specific [place] 1.010 (1.000-1.030) 12/20/18 08:14 Urine Protein Negative (NEGATIVE) 12/20/18 08:14 Urine Glucose (UA) Negative (NEGATIVE) 12/20/18 08:14 Urine Ketones Negative (NEGATIVE) 12/20/18 08:14 Urine Occult Blood 4+ (NEGATIVE) 12/20/18 08:14 Urine Nitrite Negative (NEGATIVE) 12/20/18 08:14 Urine Bilirubin Negative (NEGATIVE) 12/20/18 08:14 Urine Urobilinogen Normal (NORMAL) 12/20/18 08:14 Ur Leukocyte Esterase 1+ (NEGATIVE) 12/20/18 08:14 Urine RBC 3-5 /HPF (NONE SEEN) 12/20/18 08:14 Urine WBC 3-5 /HPF (NONE SEEN) 12/20/18 08:14 Ur Squamous Epith Cells Rare /HPF (NEGATIVE) 12/20/18 08:14 Amorphous Sediment 1+ /HPF (NEGATIVE) 12/20/18 08:14 Urine Bacteria Negative /HPF (NEGATIVE) 12/20/18 08:14 Urine Yeast Rare /HPF (NEGATIVE) 12/13/18 22:45 Ur Culture Indicated? No/not indicated 12/20/18 08:14 Tissue Pathology To follow 12/20/18 10:08 Blood Type O POSITIVE 12/20/18 07:50 Antibody Screen Negative 12/20/18 07:50 - Plan (1) Small bowel obstruction Status: Acute Plan: STATUS POST SMALL BOWEL RESECTION AND DRAINAGE OF OLD ABSCESS, IV ANTIBIOTICS, CONTINUE TO MONITOR (2) Abdominal mass Status: Acute Qualifiers: Abdominal location: unspecified location Qualified Code(s): R19.00 - Intra- abdominal and pelvic swelling, mass and lump, unspecified site Plan: IV ANTIBIOTICS, IV FLUIDS, CONTINUE TO MONITOR (3) Urinary tract infection Status: Acute Qualifiers: Urinary tract infection type: acute cystitis Hematuria presence: with hematuria Qualified Code(s): N30.01 - Acute cystitis with hematuria Plan: IV CIPRO, IV FLUIDS, CONTINUE TO MONITOR (4) Hypokalemia Status: Acute Plan: REPLACEMENT PER PROTOCOL (5) Hypomagnesemia Status: Acute Plan: REPLACEMENT PER PROTOCOL (6) Generalized weakness Status: Acute Plan: PHYSICAL THERAPY, CONTINUE TO MONITOR
[2018-12-24] MEDS ORDERED: TORADOL 30 MG VIAL IVP ONE (21:54)
--- NOTE | 2018-12-24 23:45 | DR.PROGNOT ---
Hospital Progress Notes - Progress Note for Day of: Progress Note Date: 12/24/18 - Chief Complaint Chief Complaint: mild abdominal pain , was nauseated with pain medications .tolerating diet. had normal BM this am . s/p small bowel resection . lysis of adhesions and drainage of pelvic abscess from an old diverticulitis and abscess formation with dense adhesions . leg weakness is better . ( able to ambulate with assistance . ). - Past Medical Family Social History Past Med/Fam/Surg Hx: No changes since H&P Allergies: Allergies Penicillins Allergy (Verified 12/14/18 05:11) - Review Of Systems ROS: No change since H&P - Vital Signs Vital Signs: Temperature 98.2 F Pulse Rate [Left Brachial] 78 Pulse Rate 94 Respiratory Rate 18 Blood Pressure [Right Arm] 105/54 Blood Pressure [Left Arm] 120/58 Blood Pressure 131/58 O2 Sat by Pulse Oximetry 98 - Physical Exam Oriented: Normal Eyes: Normal Ear: Normal Nose: Normal Throat: Normal Respiratory: Generalized Cardiovascular: Normal : Normal GI:Auscultation: Normal GI:Palpation: Normal GI: Tenderness: Diffuse, Mild. negative: Rebound, Guarding, Rigidity Skin: Decreased Turgur Musculoskeletal: Thigh (difficulty adduction Lt thigh with normal sensation ) Psychiatric: Normal Mood Description: Calm Affect: Normal Speech Pattern: Clear, Appropriate - Laboratory and Diagnostics Result Diagrams: 12/24/18 04:52 12/24/18 04:52 Labs: 12/20/18 09:00 Abdomen Gram Stain - Final 12/20/18 09:00 Abdomen Wound Culture - Preliminary 12/14/18 02:11 Blood Blood Culture - Final 12/14/18 02:00 Blood Blood Culture - Final 12/13/18 22:45 Urine,Clean Catch Urine Culture - Final Klebsiella Pneumoniae Laboratory WBC 9.8 X10^3/uL (3.6-10.0) 12/24/18 04:52 RBC 2.82 X10^6/uL (3.5-5.4) L 12/24/18 04:52 Hgb 8.2 g/dL (12.0-16.0) L 12/24/18 04:52 Hct 23.8 % (36.0-47.0) L 12/24/18 04:52 MCV 84.3 fL (80.0-100.0) 12/24/18 04:52 MCH 29.2 pg (27.0-34.0) 12/24/18 04:52 MCHC 34.6 g/dL (33.0-35.0) 12/24/18 04:52 RDW 16.5 % (11.6-16.5) 12/24/18 04:52 Plt Count 483 X10^3/uL (150.0-450.0) H 12/24/18 04:52 MPV 7.5 fL (7.4-11.0) 12/24/18 04:52 Neut % (Auto) 78.5 % (42.0-75.0) H 12/24/18 04:52 Lymph % (Auto) 11.8 % (21.0-51.0) L 12/24/18 04:52 [place] % (Auto) 6.7 % (0.0-13.0) 12/24/18 04:52 Eos % (Auto) 2.5 % (0.9-2.9) 12/24/18 04:52 Baso % (Auto) 0.5 % (0.2-1.0) 12/24/18 04:52 Neut # (Auto) 7.7 x10^3/uL (2.2-4.8) H 12/24/18 04:52 Lymph # (Auto) 1.2 X10^3/uL (1.3-2.9) L 12/24/18 04:52 [place] # (Auto) 0.7 x10^3/uL (0.3-0.8) 12/24/18 04:52 Eos # (Auto) 0.2 x10^3/uL (0.0-0.2) 12/24/18 04:52 Baso # (Auto) 0.0 X10^3/uL (0.0-0.1) 12/24/18 04:52 Absolute Nucleated RBC 0.0 /100WBC 12/24/18 04:52 Sodium 138 mmol/L (136-145) 12/24/18 04:52 Corrected Sodium 139 mmol/L (136-145) 12/24/18 04:52 Potassium 3.8 mmol/L (3.5-5.1) 12/24/18 04:52 Chloride 101 mmol/L (98-107) 12/24/18 04:52 Carbon Dioxide 26.3 mmol/L (21-32) 12/24/18 04:52 BUN 9 mg/dL (7-18) 12/24/18 04:52 Creatinine 0.56 mg/dL (0.55-1.02) 12/24/18 04:52 Est GFR (MDRD) Af Amer > 60 (>60) 12/24/18 04:52 Est GFR (MDRD) Non-Af > 60 (>60) 12/24/18 04:52 Glucose 142 mg/dL (65-99) H 12/24/18 04:52 Calcium 9.1 mg/dL (8.5-10.1) 12/24/18 04:52 Corrected Calcium TNP 12/24/18 04:52 Phosphorus 3.1 mg/dL (2.6-4.7) 12/21/18 05:45 Magnesium 2.2 mg/dL (1.7-2.9) 12/21/18 05:45 Total Bilirubin 0.40 mg/dL (0.2-1.0) 12/24/18 04:52 AST 13 Units/L (15-37) L 12/24/18 04:52 ALT 10 Units/L (12-78) L 12/24/18 04:52 Alkaline Phosphatase 66 Units/L (46-116) 12/24/18 04:52 Total Protein 6.8 g/dL (6.4-8.2) 12/24/18 04:52 Albumin 3.8 g/dL (3.4-5.0) 12/24/18 04:52 Globulin 3.0 g/dL (2.5-4.5) 12/24/18 04:52 Albumin/Globulin Ratio 1.3 Ratio (1.1-2.1) 12/24/18 04:52 Prealbumin 16.6 mg/dL (18-35.7) L 12/19/18 05:20 Triglycerides 97 mg/dL (0-150) 12/21/18 05:45 Carcinoembryonic Ag 3.6 ng/mL 12/14/18 06:55 Specimen Type Catherized urine 12/20/18 08:14 Urine Color Yellow (YELLOW) 12/20/18 08:14 Urine Appearance Slightly hazy (CLEAR) 12/20/18 08:14 Urine pH 7.0 (5.0 - 8.0) 12/20/18 08:14 Ur Specific [place] 1.010 (1.000-1.030) 12/20/18 08:14 Urine Protein Negative (NEGATIVE) 12/20/18 08:14 Urine Glucose (UA) Negative (NEGATIVE) 12/20/18 08:14 Urine Ketones Negative (NEGATIVE) 12/20/18 08:14 Urine Occult Blood 4+ (NEGATIVE) 12/20/18 08:14 Urine Nitrite Negative (NEGATIVE) 12/20/18 08:14 Urine Bilirubin Negative (NEGATIVE) 12/20/18 08:14 Urine Urobilinogen Normal (NORMAL) 12/20/18 08:14 Ur Leukocyte Esterase 1+ (NEGATIVE) 12/20/18 08:14 Urine RBC 3-5 /HPF (NONE SEEN) 12/20/18 08:14 Urine WBC 3-5 /HPF (NONE SEEN) 12/20/18 08:14 Ur Squamous Epith Cells Rare /HPF (NEGATIVE) 12/20/18 08:14 Amorphous Sediment 1+ /HPF (NEGATIVE) 12/20/18 08:14 Urine Bacteria Negative /HPF (NEGATIVE) 12/20/18 08:14 Urine Yeast Rare /HPF (NEGATIVE) 12/13/18 22:45 Ur Culture Indicated? No/not indicated 12/20/18 08:14 Tissue Pathology To follow 12/20/18 10:08 Blood Type O POSITIVE 12/20/18 07:50 Antibody Screen Negative 12/20/18 07:50 - Assessment and Plan 1: PO laparotomy lysis of adhesions , small bowel resection x2. residual pelvic abscess from recent acute diverticulitis ( was drained before ). same IV and nutritional support . regular diet . PT to ambulate with assistance . lian iting path and culture report . discharge on [place] and will follow in one week . - Problem Patient Problems: Patient Problems Hypoproteinemia (Acute) E77.8 Generalized weakness (Acute) R53.1 Small bowel obstruction (Acute) K56.609 Leukocytosis (Acute) D72.829 Hyponatremia (Acute) E87.1 Abdominal mass (Acute) R19.00 Urinary tract infection (Acute) N39.0 Hypokalemia (Acute) E87.6 Hypomagnesemia (Acute) E83.42
[2018-12-25] MEDS: FLAGYL TAB 500 MG PO SCH ×4 (03:20→21:50)
[2018-12-25] MEDS: D5 1/2 NS 1000 ML 1,000 ML IV SCH ×5 (04:05→21:50)
[2018-12-25 05:23] LABS: BASOPHILS % (AUTO) 0.4 % (0.2-1.0); EOSINOPHILS # (AUTO) 0.2 x10^3/uL (0.0-0.2); EOSINOPHILS % (AUTO) 2.6 % (0.9-2.9); HEMATOCRIT 23.2 % (36.0-47.0); HEMOGLOBIN 7.9 g/dL (12.0-16.0); LYMPHOCYTES # (AUTO) 1.1 X10^3/uL (1.3-2.9); LYMPHOCYTES % (AUTO) 12.1 % (21.0-51.0); MEAN CORPUSCULAR HEMOGLOBIN 28.4 pg (27.0-34.0); MEAN CORPUSCULAR VOLUME 83.4 fL (80.0-100.0); MEAN PLATELET VOLUME 7.2 fL (7.4-11.0); MONOCYTES # (AUTO) 0.6 x10^3/uL (0.3-0.8); NEUTROPHILS # (AUTO) 6.9 x10^3/uL (2.2-4.8); NEUTROPHILS % (AUTO) 77.9 % (42.0-75.0); PLATELET COUNT 482 X10^3/uL (150.0-450.0); RED BLOOD COUNT 2.78 X10^6/uL (3.5-5.4); RED CELL DISTRIBUTION WIDTH 16.2 % (11.6-16.5); WHITE BLOOD COUNT 8.8 X10^3/uL (3.6-10.0)
[2018-12-25 05:40] LABS: ALANINE AMINOTRANSFERASE 8 Units/L (12-78); ALBUMIN 3.6 g/dL (3.4-5.0); ALKALINE PHOSPHATASE 58 Units/L (46-116); ASPARTATE AMINO TRANSFERASE 11 Units/L (15-37); BLOOD UREA NITROGEN 10 mg/dL (7-18); CALCIUM 8.8 mg/dL (8.5-10.1); CARBON DIOXIDE 25.4 mmol/L (21-32); CHLORIDE 102 mmol/L (98-107); COR NA(FOR HYPERGLY) 139 mmol/L (136-145); CREATININE 0.54 mg/dL (0.55-1.02); SODIUM 139 mmol/L (136-145); TOTAL PROTEIN 6.4 g/dL (6.4-8.2); eGFR NON BLACK RACES > 60 (>60)
[2018-12-25] MEDS: CARAFATE PO SCH ×4 (06:05→21:50)
[2018-12-25] MEDS ORDERED: LEXAPRO ONE (08:34)
[2018-12-25] MEDS: KLOR-CON PO PRN (09:24)
[2018-12-25] MEDS: VITAMIN D3 PO SCH (09:25)
[2018-12-25] MEDS: OSCAL+D or CALTRATE+D PO SCH (09:25)
[2018-12-25] MEDS: FOLIC ACID TAB 1 MG PO SCH (09:26)
[2018-12-25] MEDS: LEXAPRO PO SCH (09:26)
[2018-12-25] MEDS: PROTONIX INJ 40 MG VIAL IVP SCH ×2 (09:26→21:50)
[2018-12-25] MEDS: ALBUMIN HUMAN 25%- 100 ML 100 ML IV SCH (09:27)
[2018-12-25] MEDS: DIFLUCAN 200 MG IV PREMIX* 200 MG/100 ML BAG IV SCH (09:27)
[2018-12-25] MEDS: CIPRO IV 400 MG PREMIX* 400 MG/200 ML IV.SOLN. IV SCH ×2 (09:27→21:51)
[2018-12-25] MEDS: LOVENOX INJ 40 MG SYR SC SCH (09:28)
[2018-12-25] MEDS: TORADOL 15 MG VIAL IVP PRN ×2 (09:44→23:00)
[2018-12-25] MEDS ORDERED: TOPROL XL PO ONE (11:30)
[2018-12-25] MEDS: TOPROL XL PO SCH (11:35)
[2018-12-25] MEDS: PERCOCET TAB 5/325 MG PO PRN ×3 (11:35→19:13)
[2018-12-25 13:06] LABS: HEMATOCRIT 25.5 % (36.0-47.0); HEMOGLOBIN 8.6 g/dL (12.0-16.0)
--- NOTE | 2018-12-25 14:23 | PCM.PROG ---
Progress Note - Progress Note for Day of Date of Exam: 12/24/18 - Subjective Subjective: IS BEING TREATED FOR A SMALL BOWEL OBSTRUCTION, ABDOMINAL MASS, AND A URINARY TRACT INFECTION DUE TO KLEBSIELLA PNEUMONIAE. PERFORMED AN EXPLORATORY LAPROSCOPY WHICH REVEALED EXTENSIVE ABDOMINAL ADHESIONS AND A RESIDUAL ABSCESS AROUNG THE RECTOSIGMOID. SHE IS STATUS POST SMALL BOWEL RESECTION AND DRAINAGE OF OLD ABSCESS. TODAY, SHE IS ALERT AND ORIENTED, LYING IN BED ON MORNING ROUNDS. SHE CONTINUES WITH COMPLAINTS OF ABDOMINAL PAIN AND GENERALIZED WEAKNESS. SHE REPORTS HAVING A SMALL BOWEL MOVEMENT THIS MORNING. ON EXAMINATION, HEART IS REGULAR IN RATE AND RHYTHM. BILATERAL LUNGS ARE NOTED WITH DIMINISHED LUNG SOUNDS THROUGHOUT. ABDOMEN IS ROUND, SOFT, AND NOTED WITH DIFFUSE TENDERNESS TO PALPATION. HER VITALS THIS MORNING ARE: 98.9-76-18-96%-104/57. LABS WERE OBTAINED. ABNORMAL LAB VALUES INCLUDE THE FOLLOWING: RBC 2.82, HGB 8.2, HCT 23.8, PLT COUNT 483, GLUCOSE 142, AST 13, ALT 10. WE WILL CONTINUE WITH HER IV FLUIDS, IV ANTIBIOTICS, PROCAL, ALBUMIN, AND CURRENT PLAN OF CARE TODAY. OTHERWISE, WE PLAN TO FOLLOW UP WITH AM LABS AND CONTINUE TO MONITOR. - Past Medical Family Social History Past Med/Fam/Surg Hx: No changes since H&P Allergies: Allergies Penicillins Allergy (Verified 12/14/18 05:11) - Review of Systems ROS: No change since H&P - Vital Signs and I&O's Vital Signs: Temperature 97.5 F Pulse Rate [Right Brachial] 73 Pulse Rate [Left Brachial] 69 Pulse Rate 94 Respiratory Rate 22 Blood Pressure [Right Arm] 145/63 Blood Pressure [Left Arm] 127/60 Blood Pressure 131/58 O2 Sat by Pulse Oximetry 94 Intake and Output: Intake & Output 12/23/18 12/24/18 12/25/18 12/26/18 11:59 11:59 11:59 11:59 Intake Total 3290 / 3290 5100 / 5100 1960 / 1960 Output Total 3350 / 3350 5450 / 5450 1700 / 1700 Balance -60 / -60 -350 / -350 260 / 260 - Physical Exam Oriented: Normal Eyes: Normal Ear: Normal Nose: Normal Throat: Normal Respiratory: Generalized Cardiovascular: Normal : Normal Auscultation: Bowel Sounds: Normal Palpation: Normal Tenderness: Diffuse, Mild. negative: Rebound, Guarding, Rigidity Skin: Decreased Turgur Musculoskeletal: Thigh (difficulty adduction Lt thigh with normal sensation ) Psychiatric: Normal Mood Description: Calm Affect: Normal Speech Pattern: Clear, Appropriate - Laboratory and Diagnostics Result Diagrams: 12/25/18 12:17 12/25/18 04:33 Labs: 12/20/18 09:00 Abdomen Gram Stain - Final 12/20/18 09:00 Abdomen Wound Culture - Preliminary 12/14/18 02:11 Blood Blood Culture - Final 12/14/18 02:00 Blood Blood Culture - Final 12/13/18 22:45 Urine,Clean Catch Urine Culture - Final Klebsiella Pneumoniae Laboratory WBC 8.8 X10^3/uL (3.6-10.0) 12/25/18 04:33 RBC 2.78 X10^6/uL (3.5-5.4) L 12/25/18 04:33 Hgb 8.6 g/dL (12.0-16.0) L 12/25/18 12:17 Hct 25.5 % (36.0-47.0) L 12/25/18 12:17 MCV 83.4 fL (80.0-100.0) 12/25/18 04:33 MCH 28.4 pg (27.0-34.0) 12/25/18 04:33 MCHC 34.0 g/dL (33.0-35.0) 12/25/18 04:33 RDW 16.2 % (11.6-16.5) 12/25/18 04:33 Plt Count 482 X10^3/uL (150.0-450.0) H 12/25/18 04:33 MPV 7.2 fL (7.4-11.0) L 12/25/18 04:33 Neut % (Auto) 77.9 % (42.0-75.0) H 12/25/18 04:33 Lymph % (Auto) 12.1 % (21.0-51.0) L 12/25/18 04:33 [place] % (Auto) 7.0 % (0.0-13.0) 12/25/18 04:33 Eos % (Auto) 2.6 % (0.9-2.9) 12/25/18 04:33 Baso % (Auto) 0.4 % (0.2-1.0) 12/25/18 04:33 Neut # (Auto) 6.9 x10^3/uL (2.2-4.8) H 12/25/18 04:33 Lymph # (Auto) 1.1 X10^3/uL (1.3-2.9) L 12/25/18 04:33 [place] # (Auto) 0.6 x10^3/uL (0.3-0.8) 12/25/18 04:33 Eos # (Auto) 0.2 x10^3/uL (0.0-0.2) 12/25/18 04:33 Baso # (Auto) 0.0 X10^3/uL (0.0-0.1) 12/25/18 04:33 Absolute Nucleated RBC 0.0 /100WBC 12/25/18 04:33 Sodium 139 mmol/L (136-145) 12/25/18 04:33 Corrected Sodium 139 mmol/L (136-145) 12/25/18 04:33 Potassium 3.8 mmol/L (3.5-5.1) 12/25/18 04:33 Chloride 102 mmol/L (98-107) 12/25/18 04:33 Carbon Dioxide 25.4 mmol/L (21-32) 12/25/18 04:33 BUN 10 mg/dL (7-18) 12/25/18 04:33 Creatinine 0.54 mg/dL (0.55-1.02) L 12/25/18 04:33 Est GFR (MDRD) Af Amer > 60 (>60) 12/25/18 04:33 Est GFR (MDRD) Non-Af > 60 (>60) 12/25/18 04:33 Glucose 118 mg/dL (65-99) H 12/25/18 04:33 Calcium 8.8 mg/dL (8.5-10.1) 12/25/18 04:33 Corrected Calcium TNP 12/25/18 04:33 Phosphorus 3.1 mg/dL (2.6-4.7) 12/21/18 05:45 Magnesium 2.2 mg/dL (1.7-2.9) 12/21/18 05:45 Total Bilirubin 0.30 mg/dL (0.2-1.0) 12/25/18 04:33 AST 11 Units/L (15-37) L 12/25/18 04:33 ALT 8 Units/L (12-78) L 12/25/18 04:33 Alkaline Phosphatase 58 Units/L (46-116) 12/25/18 04:33 Total Protein 6.4 g/dL (6.4-8.2) 12/25/18 04:33 Albumin 3.6 g/dL (3.4-5.0) 12/25/18 04:33 Globulin 2.8 g/dL (2.5-4.5) 12/25/18 04:33 Albumin/Globulin Ratio 1.3 Ratio (1.1-2.1) 12/25/18 04:33 Prealbumin 16.6 mg/dL (18-35.7) L 12/19/18 05:20 Triglycerides 97 mg/dL (0-150) 12/21/18 05:45 Carcinoembryonic Ag 3.6 ng/mL 12/14/18 06:55 Specimen Type Catherized urine 12/20/18 08:14 Urine Color Yellow (YELLOW) 12/20/18 08:14 Urine Appearance Slightly hazy (CLEAR) 12/20/18 08:14 Urine pH 7.0 (5.0 - 8.0) 12/20/18 08:14 Ur Specific [place] 1.010 (1.000-1.030) 12/20/18 08:14 Urine Protein Negative (NEGATIVE) 12/20/18 08:14 Urine Glucose (UA) Negative (NEGATIVE) 12/20/18 08:14 Urine Ketones Negative (NEGATIVE) 12/20/18 08:14 Urine Occult Blood 4+ (NEGATIVE) 12/20/18 08:14 Urine Nitrite Negative (NEGATIVE) 12/20/18 08:14 Urine Bilirubin Negative (NEGATIVE) 12/20/18 08:14 Urine Urobilinogen Normal (NORMAL) 12/20/18 08:14 Ur Leukocyte Esterase 1+ (NEGATIVE) 12/20/18 08:14 Urine RBC 3-5 /HPF (NONE SEEN) 12/20/18 08:14 Urine WBC 3-5 /HPF (NONE SEEN) 12/20/18 08:14 Ur Squamous Epith Cells Rare /HPF (NEGATIVE) 12/20/18 08:14 Amorphous Sediment 1+ /HPF (NEGATIVE) 12/20/18 08:14 Urine Bacteria Negative /HPF (NEGATIVE) 12/20/18 08:14 Urine Yeast Rare /HPF (NEGATIVE) 12/13/18 22:45 Ur Culture Indicated? No/not indicated 12/20/18 08:14 Tissue Pathology To follow 12/20/18 10:08 Blood Type O POSITIVE 12/20/18 07:50 Antibody Screen Negative 12/20/18 07:50 - Plan (1) Small bowel obstruction Status: Acute Plan: STATUS POST SMALL BOWEL RESECTION AND DRAINAGE OF OLD ABSCESS, IV AN TIBIOTICS, CONTINUE TO MONITOR (2) Abdominal mass Status: Acute Qualifiers: Abdominal location: unspecified location Qualified Code(s): R19.00 - Intra- abdominal and pelvic swelling, mass and lump, unspecified site Plan: IV ANTIBIOTICS, IV FLUIDS, CONTINUE TO MONITOR (3) Urinary tract infection Status: Acute Qualifiers: Urinary tract infection type: acute cystitis Hematuria presence: with hematuria Qualified Code(s): N30.01 - Acute cystitis with hematuria Plan: IV CIPRO, IV FLUIDS, CONTINUE TO MONITOR (4) Hypokalemia Status: Acute Plan: REPLACEMENT PER PROTOCOL (5) Hypomagnesemia Status: Acute Plan: REPLACEMENT PER PROTOCOL (6) Generalized weakness Status: Acute Plan: PHYSICAL THERAPY, CONTINUE TO MONITOR
[2018-12-25] MEDS: PROCALAMINE 3 % 1,000 ML IV SCH ×2 (15:12→17:20)
[2018-12-25] MEDS: ZOFRAN INJ 4 MG VIAL IVP PRN (18:52)
[2018-12-26] MEDS: PERCOCET TAB 5/325 MG PO PRN ×3 (02:39→20:44)
[2018-12-26] MEDS: FLAGYL TAB 500 MG PO SCH ×4 (02:40→20:43)
[2018-12-26] MEDS: D5 1/2 NS 1000 ML 1,000 ML IV SCH ×4 (04:17→20:43)
[2018-12-26] MEDS: CARAFATE PO SCH ×4 (05:47→20:43)
[2018-12-26 05:52] LABS: BASOPHILS # (AUTO) 0.1 X10^3/uL (0.0-0.1); BASOPHILS % (AUTO) 0.4 % (0.2-1.0); EOSINOPHILS # (AUTO) 0.1 x10^3/uL (0.0-0.2); EOSINOPHILS % (AUTO) 0.8 % (0.9-2.9); LYMPHOCYTES # (AUTO) 0.7 X10^3/uL (1.3-2.9); MEAN CORPUSCULAR HEMOGLOBIN 28.9 pg (27.0-34.0); MEAN CORPUSCULAR HGB CONC 34.6 g/dL (33.0-35.0); MEAN CORPUSCULAR VOLUME 83.6 fL (80.0-100.0); MEAN PLATELET VOLUME 7.2 fL (7.4-11.0); MONOCYTES % (AUTO) 5.7 % (0.0-13.0); NEUTROPHILS # (AUTO) 15.9 x10^3/uL (2.2-4.8); NEUTROPHILS % (AUTO) 89.1 % (42.0-75.0); PLATELET COUNT 485 X10^3/uL (150.0-450.0); RED BLOOD COUNT 2.76 X10^6/uL (3.5-5.4); RED CELL DISTRIBUTION WIDTH 16.2 % (11.6-16.5); WHITE BLOOD COUNT 17.9 X10^3/uL (3.6-10.0)
[2018-12-26 06:05] LABS: ALANINE AMINOTRANSFERASE 6 Units/L (12-78); ALBUMIN 3.4 g/dL (3.4-5.0); ALKALINE PHOSPHATASE 52 Units/L (46-116); ASPARTATE AMINO TRANSFERASE 8 Units/L (15-37); BLOOD UREA NITROGEN 9 mg/dL (7-18); CALCIUM 8.4 mg/dL (8.5-10.1); CHLORIDE 99 mmol/L (98-107); COR NA(FOR HYPERGLY) 136 mmol/L (136-145); CREATININE 0.63 mg/dL (0.55-1.02); SODIUM 135 mmol/L (136-145); eGFR NON BLACK RACES > 60 (>60)
[2018-12-26] MEDS ORDERED: LEXAPRO ONE (08:19)
[2018-12-26] MEDS: CIPRO IV 400 MG PREMIX* 400 MG/200 ML IV.SOLN. IV SCH ×2 (08:45→20:43)
[2018-12-26] MEDS: ALBUMIN HUMAN 25%- 100 ML 100 ML IV SCH (08:46)
[2018-12-26] MEDS: LOVENOX INJ 40 MG SYR SC SCH (08:46)
[2018-12-26] MEDS: LEXAPRO PO SCH (08:47)
[2018-12-26] MEDS: DIFLUCAN 200 MG IV PREMIX* 200 MG/100 ML BAG IV SCH (08:47)
[2018-12-26] MEDS: FOLIC ACID TAB 1 MG PO SCH (08:47)
[2018-12-26] MEDS: OSCAL+D or CALTRATE+D PO SCH (08:47)
[2018-12-26] MEDS: VITAMIN D3 PO SCH (08:48)
[2018-12-26] MEDS: TOPROL XL PO SCH (08:48)
[2018-12-26] MEDS: PROTONIX INJ 40 MG VIAL IVP SCH ×2 (08:48→20:44)
[2018-12-26] MEDS: PROCALAMINE 3 % 1,000 ML IV SCH (17:11)
--- NOTE | 2018-12-26 20:33 | PCM.PROG ---
Progress Note - Progress Note for Day of Date of Exam: 12/25/18 - Subjective Subjective: IS BEING TREATED FOR A SMALL BOWEL OBSTRUCTION, ABDOMINAL MASS, AND A URINARY TRACT INFECTION DUE TO KLEBSIELLA PNEUMONIAE. PERFORMED AN EXPLORATORY LAPROSCOPY WHICH REVEALED EXTENSIVE ABDOMINAL ADHESIONS AND A RESIDUAL ABSCESS AROUNG THE RECTOSIGMOID. SHE IS STATUS POST SMALL BOWEL RESECTION AND DRAINAGE OF OLD ABSCESS. TODAY, SHE IS ALERT AND ORIENTED, LYING IN BED ON MORNING ROUNDS. SHE REPORTS INCREASED ABDOMINAL PAIN TODAY, BUT IMPROVEMENT IN WEAKNESS. SHE REPORTS HAVING A SMALL BOWEL MOVEMENT THIS MORNING. ON EXAMINATION, HEART IS REGULAR IN RATE AND RHYTHM. BILATERAL LUNGS ARE NOTED WITH DIMINISHED LUNG SOUNDS THROUGHOUT. ABDOMEN IS ROUND, SOFT, AND NOTED WITH DIFFUSE TENDERNESS TO PALPATION. HYPOACTIVE BOWEL SOUNDS NOTED. HER VITALS THIS MORNING ARE: 97.5-73-18-94%-145/63. LABS WERE OBTAINED. ABNORMAL LAB VALUES INCLUDE THE FOLLOWING: RBC 2.78, HGB 7.9, HCT 23.2, PLT COUNT 482, CREATININE 0.54, GLCUOSE 118, AST 11, ALT 8. PATHOLOGY REPORTS ARE PENDING. WE WILL CONTINUE WITH HER IV FLUIDS, IV ANTIBIOTICS, PROCAL, ALBUMIN, AND CURRENT PLAN OF CARE TODAY. WE WILL DISCONTINUE THE DILAUDID AND START PERCOCET AND IV TORADOL PRN OTHERWISE, WE PLAN TO FOLLOW UP WITH AM LABS AND CONTINUE TO MONITOR. - Past Medical Family Social History Past Med/Fam/Surg Hx: No changes since H&P Allergies: Allergies Penicillins Allergy (Verified 12/14/18 05:11) - Review of Systems ROS: No change since H&P - Vital Signs and I&O's Vital Signs: Temperature 98.9 F Pulse Rate [Right Brachial] 82 Pulse Rate [Left Brachial] 69 Pulse Rate 94 Respiratory Rate 18 Blood Pressure [Right Arm] 145/63 Blood Pressure [Left Arm] 120/58 Blood Pressure 131/58 O2 Sat by Pulse Oximetry 98 Intake and Output: Intake & Output 12/24/18 12/25/18 12/26/18 12/27/18 11:59 11:59 11:59 11:59 Intake Total 5100 / 5100 1960 / 1960 5570 / 5570 1879 Output Total 5450 / 5450 1700 / 1700 Balance -350 / -350 260 / 260 5570 / 5570 1879 - Physical Exam Oriented: Normal Eyes: Normal Ear: Normal Nose: Normal Throat: Normal Respiratory: Generalized Cardiovascular: Normal : Normal Auscultation: Bowel Sounds: Normal Tenderness: Diffuse, Mild. negative: Rebound, Guarding, Rigidity Skin: Decreased Turgur Musculoskeletal: Thigh (difficulty adduction Lt thigh with normal sensation ) Psychiatric: Normal Mood Description: Calm Affect: Normal Speech Pattern: Clear, Appropriate - Laboratory and Diagnostics Result Diagrams: 12/26/18 04:23 12/26/18 04:23 Labs: 12/20/18 09:00 Abdomen Gram Stain - Final 12/20/18 09:00 Abdomen Wound Culture - Preliminary 12/14/18 02:11 Blood Blood Culture - Final 12/14/18 02:00 Blood Blood Culture - Final 12/13/18 22:45 Urine,Clean Catch Urine Culture - Final Klebsiella Pneumoniae Laboratory WBC 17.9 X10^3/uL (3.6-10.0) H D 12/26/18 04:23 RBC 2.76 X10^6/uL (3.5-5.4) L 12/26/18 04:23 Hgb 8.0 g/dL (12.0-16.0) L 12/26/18 04:23 Hct 23.0 % (36.0-47.0) L 12/26/18 04:23 MCV 83.6 fL (80.0-100.0) 12/26/18 04:23 MCH 28.9 pg (27.0-34.0) 12/26/18 04:23 MCHC 34.6 g/dL (33.0-35.0) 12/26/18 04:23 RDW 16.2 % (11.6-16.5) 12/26/18 04:23 Plt Count 485 X10^3/uL (150.0-450.0) H 12/26/18 04:23 MPV 7.2 fL (7.4-11.0) L 12/26/18 04:23 Neut % (Auto) 89.1 % (42.0-75.0) H 12/26/18 04:23 Lymph % (Auto) 4.0 % (21.0-51.0) L 12/26/18 04:23 [place] % (Auto) 5.7 % (0.0-13.0) 12/26/18 04:23 Eos % (Auto) 0.8 % (0.9-2.9) L 12/26/18 04:23 Baso % (Auto) 0.4 % (0.2-1.0) 12/26/18 04:23 Neut # (Auto) 15.9 x10^3/uL (2.2-4.8) H 12/26/18 04:23 Lymph # (Auto) 0.7 X10^3/uL (1.3-2.9) L 12/26/18 04:23 [place] # (Auto) 1.0 x10^3/uL (0.3-0.8) H 12/26/18 04:23 Eos # (Auto) 0.1 x10^3/uL (0.0-0.2) 12/26/18 04:23 Baso # (Auto) 0.1 X10^3/uL (0.0-0.1) 12/26/18 04:23 Absolute Nucleated RBC 0.0 /100WBC 12/26/18 04:23 Sodium 135 mmol/L (136-145) L 12/26/18 04:23 Corrected Sodium 136 mmol/L (136-145) 12/26/18 04:23 Potassium 3.5 mmol/L (3.5-5.1) 12/26/18 04:23 Chloride 99 mmol/L (98-107) 12/26/18 04:23 Carbon Dioxide 24.0 mmol/L (21-32) 12/26/18 04:23 BUN 9 mg/dL (7-18) 12/26/18 04:23 Creatinine 0.63 mg/dL (0.55-1.02) 12/26/18 04:23 Est GFR (MDRD) Af Amer > 60 (>60) 12/26/18 04:23 Est GFR (MDRD) Non-Af > 60 (>60) 12/26/18 04:23 Glucose 127 mg/dL (65-99) H 12/26/18 04:23 Calcium 8.4 mg/dL (8.5-10.1) L 12/26/18 04:23 Corrected Calcium TNP 12/26/18 04:23 Phosphorus 3.1 mg/dL (2.6-4.7) 12/21/18 05:45 Magnesium 2.2 mg/dL (1.7-2.9) 12/21/18 05:45 Total Bilirubin 0.50 mg/dL (0.2-1.0) 12/26/18 04:23 AST 8 Units/L (15-37) L 12/26/18 04:23 ALT 6 Units/L (12-78) L 12/26/18 04:23 Alkaline Phosphatase 52 Units/L (46-116) 12/26/18 04:23 Total Protein 6.0 g/dL (6.4-8.2) L 12/26/18 04:23 Albumin 3.4 g/dL (3.4-5.0) 12/26/18 04:23 Globulin 2.6 g/dL (2.5-4.5) 12/26/18 04:23 Albumin/Globulin Ratio 1.3 Ratio (1.1-2.1) 12/26/18 04:23 Prealbumin 16.6 mg/dL (18-35.7) L 12/19/18 05:20 Triglycerides 97 mg/dL (0-150) 12/21/18 05:45 Carcinoembryonic Ag 3.6 ng/mL 12/14/18 06:55 Specimen Type Catherized urine 12/20/18 08:14 Urine Color Yellow (YELLOW) 12/20/18 08:14 Urine Appearance Slightly hazy (CLEAR) 12/20/18 08:14 Urine pH 7.0 (5.0 - 8.0) 12/20/18 08:14 Ur Specific [place] 1.010 (1.000-1.030) 12/20/18 08:14 Urine Protein Negative (NEGATIVE) 12/20/18 08:14 Urine Glucose (UA) Negative (NEGATIVE) 12/20/18 08:14 Urine Ketones Negative (NEGATIVE) 12/20/18 08:14 Urine Occult Blood 4+ (NEGATIVE) 12/20/18 08:14 Urine Nitrite Negative (NEGATIVE) 12/20/18 08:14 Urine Bilirubin Negative (NEGATIVE) 12/20/18 08:14 Urine Urobilinogen Normal (NORMAL) 12/20/18 08:14 Ur Leukocyte Esterase 1+ (NEGATIVE) 12/20/18 08:14 Urine RBC 3-5 /HPF (NONE SEEN) 12/20/18 08:14 Urine WBC 3-5 /HPF (NONE SEEN) 12/20/18 08:14 Ur Squamous Epith Cells Rare /HPF (NEGATIVE) 12/20/18 08:14 Amorphous Sediment 1+ /HPF (NEGATIVE) 12/20/18 08:14 Urine Bacteria Negative /HPF (NEGATIVE) 12/20/18 08:14 Urine Yeast Rare /HPF (NEGATIVE) 12/13/18 22:45 Ur Culture Indicated? No/not indicated 12/20/18 08:14 Tissue Pathology To follow 12/20/18 10:08 Blood Type O POSITIVE 12/20/18 07:50 Antibody Screen Negative 12/20/18 07:50 - Plan (1) Small bowel obstruction Status: Acute Plan: STATUS POST SMALL BOWEL RESECTION AND DRAINAGE OF OLD ABSCESS, IV ANTIBIOTICS, CONTINUE TO MONITOR (2) Abdominal mass Status: Acute Qualifiers: Abdominal location: unspecified location Qualified Code(s): R19.00 - Intra- abdominal and pelvic swelling, mass and lump, unspecified site Plan: IV ANTIBIOTICS, IV FLUIDS, CONTINUE TO MONITOR (3) Urinary tract infection Status: Acute Qualifiers: Urinary tract infection type: acute cystitis Hematuria presence: with hematuria Qualified Code(s): N30.01 - Acute cystitis with hematuria Plan: IV CIPRO, IV FLUIDS, CONTINUE TO MONITOR (4) Hypokalemia Status: Acute Plan: REPLACEMENT PER PROTOCOL (5) Hypomagnesemia Status: Acute Plan: REPLACEMENT PER PROTOCOL (6) Generalized weakness Status: Acute Plan: PHYSICAL THERAPY, CONTINUE TO MONITOR
[2018-12-26] MEDS: ZOFRAN INJ 4 MG VIAL IVP PRN (20:44)
[2018-12-27] MEDS: FLAGYL TAB 500 MG PO SCH ×4 (03:00→20:52)
[2018-12-27] MEDS: D5 1/2 NS 1000 ML 1,000 ML IV SCH ×2 (03:00→20:53)
[2018-12-27] MEDS: CARAFATE PO SCH ×4 (05:57→20:53)
--- NOTE | 2018-12-27 06:16 | RAD ---
HISTORY: Small-bowel obstruction, postop Study: KUB Comparison: 12/19/2018, Findings: The abdominal gas pattern is nonspecific and nonobstructive. No abnormal masses or abnormal calcifications are identified. Sutures are present in the right mid abdomen. Amairani overlie the lower abdomen. IMPRESSION: Unremarkable postop KUB Reported By:
[2018-12-27 06:40] LABS: BASOPHILS % (AUTO) 0.3 % (0.2-1.0); EOSINOPHILS # (AUTO) 0.1 x10^3/uL (0.0-0.2); EOSINOPHILS % (AUTO) 1.1 % (0.9-2.9); HEMATOCRIT 21.5 % (36.0-47.0); HEMOGLOBIN 7.2 g/dL (12.0-16.0); LYMPHOCYTES # (AUTO) 0.9 X10^3/uL (1.3-2.9); LYMPHOCYTES % (AUTO) 8.3 % (21.0-51.0); MEAN CORPUSCULAR HEMOGLOBIN 28.3 pg (27.0-34.0); MEAN CORPUSCULAR HGB CONC 33.8 g/dL (33.0-35.0); MEAN CORPUSCULAR VOLUME 83.9 fL (80.0-100.0); MEAN PLATELET VOLUME 7.1 fL (7.4-11.0); MONOCYTES # (AUTO) 0.9 x10^3/uL (0.3-0.8); MONOCYTES % (AUTO) 8.1 % (0.0-13.0); NEUTROPHILS # (AUTO) 9.3 x10^3/uL (2.2-4.8); NEUTROPHILS % (AUTO) 82.2 % (42.0-75.0); PLATELET COUNT 443 X10^3/uL (150.0-450.0); RED BLOOD COUNT 2.56 X10^6/uL (3.5-5.4); RED CELL DISTRIBUTION WIDTH 16.2 % (11.6-16.5); WHITE BLOOD COUNT 11.3 X10^3/uL (3.6-10.0)
[2018-12-27 07:01] LABS: ALANINE AMINOTRANSFERASE < 6 Units/L (12-78); ALBUMIN 3.4 g/dL (3.4-5.0); ALKALINE PHOSPHATASE 51 Units/L (46-116); ASPARTATE AMINO TRANSFERASE 6 Units/L (15-37); BLOOD UREA NITROGEN 7 mg/dL (7-18); CALCIUM 8.7 mg/dL (8.5-10.1); CARBON DIOXIDE 27.1 mmol/L (21-32); CHLORIDE 103 mmol/L (98-107); COR NA(FOR HYPERGLY) 139 mmol/L (136-145); SODIUM 139 mmol/L (136-145); TOTAL PROTEIN 6.3 g/dL (6.4-8.2); eGFR NON BLACK RACES > 60 (>60)
[2018-12-27 07:19] LABS: ANISOCYTOSIS SLIGHT; HYPOCHROMASIA 1+; PLATELET MORPHOLOGY COMMENT NORMAL (NORMAL)
[2018-12-27] MEDS: ZOFRAN INJ 4 MG VIAL IVP PRN ×2 (07:55→22:45)
[2018-12-27] MEDS ORDERED: LEXAPRO ONE (08:10)
--- NOTE | 2018-12-27 09:24 | DR.PROGNOT ---
Hospital Progress Notes - Progress Note for Day of: Progress Note Date: 12/27/18 - Chief Complaint Chief Complaint: Pt was nauseated and vomited yesterday and today , had low grade fever and leukocytosis . KUB was unremarkable. Hgb 7.2 . final pathology report showed stricture of the small bowel with possible fistula from the abscess .. no malignancy . - Past Medical Family Social History Past Med/Fam/Surg Hx: No changes since H&P Allergies: Allergies Penicillins Allergy (Verified 12/14/18 05:11) - Review Of Systems ROS: No change since H&P - Vital Signs Vital Signs: Temperature 98.9 F Pulse Rate [Right Brachial] 71 Pulse Rate [Left Brachial] 69 Pulse Rate 94 Respiratory Rate 18 Blood Pressure [Right Arm] 145/63 Blood Pressure [Left Arm] 119/56 Blood Pressure 131/58 O2 Sat by Pulse Oximetry 98 - Physical Exam Oriented: Normal Eyes: Normal Ear: Normal Nose: Normal Throat: Normal Respiratory: Generalized Cardiovascular: Normal : Normal GI:Auscultation: Normal GI:Palpation: Normal GI: Tenderness: Diffuse, Mild. negative: Rebound, Guarding, Rigidity Skin: Decreased Turgur Musculoskeletal: Thigh (difficulty adduction Lt thigh with normal sensation ) Psychiatric: Normal Mood Description: Calm Affect: Normal Speech Pattern: Clear, Appropriate - Laboratory and Diagnostics Result Diagrams: 12/27/18 05:18 12/27/18 05:18 Labs: 12/20/18 09:00 Abdomen Gram Stain - Final 12/20/18 09:00 Abdomen Wound Culture - Preliminary 12/14/18 02:11 Blood Blood Culture - Final 12/14/18 02:00 Blood Blood Culture - Final 12/13/18 22:45 Urine,Clean Catch Urine Culture - Final Klebsiella Pneumoniae Laboratory WBC 11.3 X10^3/uL (3.6-10.0) H 12/27/18 05:18 RBC 2.56 X10^6/uL (3.5-5.4) L 12/27/18 05:18 Hgb 7.2 g/dL (12.0-16.0) L 12/27/18 05:18 Hct 21.5 % (36.0-47.0) L 12/27/18 05:18 MCV 83.9 fL (80.0-100.0) 12/27/18 05:18 MCH 28.3 pg (27.0-34.0) 12/27/18 05:18 MCHC 33.8 g/dL (33.0-35.0) 12/27/18 05:18 RDW 16.2 % (11.6-16.5) 12/27/18 05:18 Plt Count 443 X10^3/uL (150.0-450.0) 12/27/18 05:18 Plt Count Comment Adequate (ADEQUATE) 12/27/18 05:18 MPV 7.1 fL (7.4-11.0) L 12/27/18 05:18 Neut % (Auto) 82.2 % (42.0-75.0) H 12/27/18 05:18 Lymph % (Auto) 8.3 % (21.0-51.0) L 12/27/18 05:18 [place] % (Auto) 8.1 % (0.0-13.0) 12/27/18 05:18 Eos % (Auto) 1.1 % (0.9-2.9) 12/27/18 05:18 Baso % (Auto) 0.3 % (0.2-1.0) 12/27/18 05:18 Neut # (Auto) 9.3 x10^3/uL (2.2-4.8) H 12/27/18 05:18 Lymph # (Auto) 0.9 X10^3/uL (1.3-2.9) L 12/27/18 05:18 [place] # (Auto) 0.9 x10^3/uL (0.3-0.8) H 12/27/18 05:18 Eos # (Auto) 0.1 x10^3/uL (0.0-0.2) 12/27/18 05:18 Baso # (Auto) 0.0 X10^3/uL (0.0-0.1) 12/27/18 05:18 Absolute Nucleated RBC 0.0 /100WBC 12/27/18 05:18 Plt Morphology Comment Normal (NORMAL) 12/27/18 05:18 RBC Morphology Abnormal (NORMAL) A 12/27/18 05:18 Hypochromasia 1+ A 12/27/18 05:18 Anisocytosis Slight A 12/27/18 05:18 Sodium 139 mmol/L (136-145) 12/27/18 05:18 Corrected Sodium 139 mmol/L (136-145) 12/27/18 05:18 Potassium 2.9 mmol/L (3.5-5.1) L* 12/27/18 05:18 Chloride 103 mmol/L (98-107) 12/27/18 05:18 Carbon Dioxide 27.1 mmol/L (21-32) 12/27/18 05:18 BUN 7 mg/dL (7-18) 12/27/18 05:18 Creatinine 0.50 mg/dL (0.55-1.02) L 12/27/18 05:18 Est GFR (MDRD) Af Amer > 60 (>60) 12/27/18 05:18 Est GFR (MDRD) Non-Af > 60 (>60) 12/27/18 05:18 Glucose 112 mg/dL (65-99) H 12/27/18 05:18 Calcium 8.7 mg/dL (8.5-10.1) 12/27/18 05:18 Corrected Calcium TNP 12/27/18 05:18 Phosphorus 3.1 mg/dL (2.6-4.7) 12/21/18 05:45 Magnesium 2.2 mg/dL (1.7-2.9) 12/21/18 05:45 Total Bilirubin 0.40 mg/dL (0.2-1.0) 12/27/18 05:18 AST 6 Units/L (15-37) L 12/27/18 05:18 ALT < 6 Units/L (12-78) L 12/27/18 05:18 Alkaline Phosphatase 51 Units/L (46-116) 12/27/18 05:18 Total Protein 6.3 g/dL (6.4-8.2) L 12/27/18 05:18 Albumin 3.4 g/dL (3.4-5.0) 12/27/18 05:18 Globulin 2.9 g/dL (2.5-4.5) 12/27/18 05:18 Albumin/Globulin Ratio 1.2 Ratio (1.1-2.1) 12/27/18 05:18 Prealbumin 16.6 mg/dL (18-35.7) L 12/19/18 05:20 Triglycerides 97 mg/dL (0-150) 12/21/18 05:45 Carcinoembryonic Ag 3.6 ng/mL 12/14/18 06:55 Specimen Type Catherized urine 12/20/18 08:14 Urine Color Yellow (YELLOW) 12/20/18 08:14 Urine Appearance Slightly hazy (CLEAR) 12/20/18 08:14 Urine pH 7.0 (5.0 - 8.0) 12/20/18 08:14 Ur Specific [place] 1.010 (1.000-1.030) 12/20/18 08:14 Urine Protein Negative (NEGATIVE) 12/20/18 08:14 Urine Glucose (UA) Negative (NEGATIVE) 12/20/18 08:14 Urine Ketones Negative (NEGATIVE) 12/20/18 08:14 Urine Occult Blood 4+ (NEGATIVE) 12/20/18 08:14 Urine Nitrite Negative (NEGATIVE) 12/20/18 08:14 Urine Bilirubin Negative (NEGATIVE) 12/20/18 08:14 Urine Urobilinogen Normal (NORMAL) 12/20/18 08:14 Ur Leukocyte Esterase 1+ (NEGATIVE) 12/20/18 08:14 Urine RBC 3-5 /HPF (NONE SEEN) 12/20/18 08:14 Urine WBC 3-5 /HPF (NONE SEEN) 12/20/18 08:14 Ur Squamous Epith Cells Rare /HPF (NEGATIVE) 12/20/18 08:14 Amorphous Sediment 1+ /HPF (NEGATIVE) 12/20/18 08:14 Urine Bacteria Negative /HPF (NEGATIVE) 12/20/18 08:14 Urine Yeast Rare /HPF (NEGATIVE) 12/13/18 22:45 Ur Culture Indicated? 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 no malignancy . recurrent diverticulitis ( improving with ATB ). anemia. magali transfuse today - Problem Patient Problems: Patient Problems Hypoproteinemia (Acute) E77.8 Generalized weakness (Acute) R53.1 Small bowel obstruction (Acute) K56.609 Leukocytosis (Acute) D72.829 Hyponatremia (Acute) E87.1 Abdominal mass (Acute) R19.00 Urinary tract infection (Acute) N39.0 Hypokalemia (Acute) E87.6 Hypomagnesemia (Acute) E83.42
[2018-12-27] MEDS: ALBUMIN HUMAN 25%- 100 ML 100 ML IV SCH (09:33)
[2018-12-27] MEDS: VITAMIN D3 PO SCH (09:34)
[2018-12-27] MEDS: TOPROL XL PO SCH (09:34)
[2018-12-27] MEDS: PROTONIX INJ 40 MG VIAL IVP SCH ×2 (09:35→20:53)
[2018-12-27] MEDS: LOVENOX INJ 40 MG SYR SC SCH (09:35)
[2018-12-27] MEDS: OSCAL+D or CALTRATE+D PO SCH (09:35)
[2018-12-27] MEDS: LEXAPRO PO SCH (09:36)
[2018-12-27] MEDS: FOLIC ACID TAB 1 MG PO SCH (09:36)
[2018-12-27] MEDS: CIPRO IV 400 MG PREMIX* 400 MG/200 ML IV.SOLN. IV SCH (09:37)
[2018-12-27] MEDS: DIFLUCAN 200 MG IV PREMIX* 200 MG/100 ML BAG IV SCH (09:37)
[2018-12-27] MEDS: K-DUR TAB 20 MEQ PO PRN (09:39)
[2018-12-27] MEDS ORDERED: NS 500 ML IV 500 ML IV ONE (10:00)
[2018-12-27] MEDS ORDERED: TYLENOL 325 MG TAB PO PRN (10:00)
[2018-12-27] MEDS ORDERED: BENADRYL INJ 50 MG VIAL IVP PRN (10:00)
[2018-12-27] MEDS ORDERED: CYMBALTA PO SCH (11:00)
[2018-12-27] MEDS: PERCOCET TAB 5/325 MG PO PRN ×2 (11:56→20:59)
--- NOTE | 2018-12-27 18:02 | PCM.PROG ---
Progress Note - Progress Note for Day of Date of Exam: 12/26/18 - Subjective Subjective: IS BEING TREATED FOR A SMALL BOWEL OBSTRUCTION, ABDOMINAL MASS, AND A URINARY TRACT INFECTION DUE TO KLEBSIELLA PNEUMONIAE. PERFORMED AN EXPLORATORY LAPROSCOPY WHICH REVEALED EXTENSIVE ABDOMINAL ADHESIONS AND A RESIDUAL ABSCESS AROUNG THE RECTOSIGMOID. SHE IS STATUS POST SMALL BOWEL RESECTION AND DRAINAGE OF OLD ABSCESS. TODAY, SHE IS ALERT AND ORIENTED, LYING IN BED ON MORNING ROUNDS. SHE REPORTS PERSISTENT ABDOMINAL PAIN AND NAUSEA. SHE HAS BEEN UNABLE TO TOLERATE AN ADVANCEMENT IN HER DIET TO FULL LIQUIDS. SHE REPORTS HAVING A SMALL BOWEL MOVEMENT THIS MORNING. ON EXAMINATION, HEART IS REGULAR IN RATE AND RHYTHM. BILATERAL LUNGS ARE NOTED WITH DIMINISHED LUNG S OUNDS THROUGHOUT. ABDOMEN IS ROUND, SOFT, AND NOTED WITH DIFFUSE TENDERNESS TO PALPATION. HYPOACTIVE BOWEL SOUNDS NOTED. HER VITALS THIS MORNING ARE: 98.8-78-18-96%NC-106/53. LABS WERE OBTAINED. ABNORMAL LAB VALUES INCLUDE THE FOLLOWING: WBC 17.9, RBC 2.76, HGB 8.0, HCT 23.0, PLT COUNT 485, SODIUM 135, GLUCOSE 127, CALCIUM 8.4, AST 8, ALT 6, ALBUMIN 6.0. PATHOLOGY REPORTS ARE NEGATIVE FOR MALIGNANCY. WE WILL CONTINUE WITH HER IV FLUIDS, IV ANTIBIOTICS, PROCAL, ALBUMIN, AND CURRENT PLAN OF CARE TODAY. OTHERWISE, WE PLAN TO FOLLOW UP WITH AM LABS AND CONTINUE TO MONITOR. - Past Medical Family Social History Past Med/Fam/Surg Hx: No changes since H&P Allergies: Allergies Penicillins Allergy (Verified 12/14/18 05:11) - Review of Systems ROS: No change since H&P - Vital Signs and I&O's Vital Signs: Temperature 97.7 F Pulse Rate [Right Brachial] 79 Pulse Rate [Left Brachial] 85 Pulse Rate 94 Respiratory Rate 20 Blood Pressure [Right Arm] 126/58 Blood Pressure [Left Arm] 132/60 Blood Pressure 131/58 O2 Sat by Pulse Oximetry 96 Intake and Output: Intake & Output 12/25/18 12/26/18 12/27/18 12/28/18 11:59 11:59 11:59 11:59 Intake Total 1960 / 1960 5570 / 5570 4205 / 4205 440 / 440 Output Total 1700 / 1700 Balance 260 / 260 5570 / 5570 4205 / 4205 440 / 440 - Physical Exam Oriented: Normal Eyes: Normal Ear: Normal Nose: Normal Throat: Normal Respiratory: Generalized Cardiovascular: Normal : Normal Auscultation: Bowel Sounds: Normal Tenderness: Diffuse, Mild. negative: Rebound, Guarding, Rigidity Skin: Decreased Turgur Musculoskeletal: Thigh (difficulty adduction Lt thigh with normal sensation ) Psychiatric: Normal Mood Description: Calm Affect: Normal Speech Pattern: Clear, Appropriate - Laboratory and Diagnostics Result Diagrams: 12/27/18 05:18 12/27/18 05:18 Labs: 12/20/18 09:00 Abdomen Gram Stain - Final 12/20/18 09:00 Abdomen Wound Culture - Preliminary 12/14/18 02:11 Blood Blood Culture - Final 12/14/18 02:00 Blood Blood Culture - Final 12/13/18 22:45 Urine,Clean Catch Urine Culture - Final Klebsiella Pneumoniae Laboratory WBC 11.3 X10^3/uL (3.6-10.0) H 12/27/18 05:18 RBC 2.56 X10^6/uL (3.5-5.4) L 12/27/18 05:18 Hgb 7.2 g/dL (12.0-16.0) L 12/27/18 05:18 Hct 21.5 % (36.0-47.0) L 12/27/18 05:18 MCV 83.9 fL (80.0-100.0) 12/27/18 05:18 MCH 28.3 pg (27.0-34.0) 12/27/18 05:18 MCHC 33.8 g/dL (33.0-35.0) 12/27/18 05:18 RDW 16.2 % (11.6-16.5) 12/27/18 05:18 Plt Count 443 X10^3/uL (150.0-450.0) 12/27/18 05:18 Plt Count Comment Adequate (ADEQUATE) 12/27/18 05:18 MPV 7.1 fL (7.4-11.0) L 12/27/18 05:18 Neut % (Auto) 82.2 % (42.0-75.0) H 12/27/18 05:18 Lymph % (Auto) 8.3 % (21.0-51.0) L 12/27/18 05:18 [place] % (Auto) 8.1 % (0.0-13.0) 12/27/18 05:18 Eos % (Auto) 1.1 % (0.9-2.9) 12/27/18 05:18 Baso % (Auto) 0.3 % (0.2-1.0) 12/27/18 05:18 Neut # (Auto) 9.3 x10^3/uL (2.2-4.8) H 12/27/18 05:18 Lymph # (Auto) 0.9 X10^3/uL (1.3-2.9) L 12/27/18 05:18 [place] # (Auto) 0.9 x10^3/uL (0.3-0.8) H 12/27/18 05:18 Eos # (Auto) 0.1 x10^3/uL (0.0-0.2) 12/27/18 05:18 Baso # (Auto) 0.0 X10^3/uL (0.0-0.1) 12/27/18 05:18 Absolute Nucleated RBC 0.0 /100WBC 12/27/18 05:18 Plt Morphology Comment Normal (NORMAL) 12/27/18 05:18 RBC Morphology Abnormal (NORMAL) A 12/27/18 05:18 Hypochromasia 1+ A 12/27/18 05:18 Anisocytosis Slight A 12/27/18 05:18 Sodium 139 mmol/L (136-145) 12/27/18 05:18 Corrected Sodium 139 mmol/L (136-145) 12/27/18 05:18 Potassium 2.9 mmol/L (3.5-5.1) L* 12/27/18 05:18 Chloride 103 mmol/L (98-107) 12/27/18 05:18 Carbon Dioxide 27.1 mmol/L (21-32) 12/27/18 05:18 BUN 7 mg/dL (7-18) 12/27/18 05:18 Creatinine 0.50 mg/dL (0.55-1.02) L 12/27/18 05:18 Est GFR (MDRD) Af Amer > 60 (>60) 12/27/18 05:18 Est GFR (MDRD) Non-Af > 60 (>60) 12/27/18 05:18 Glucose 112 mg/dL (65-99) H 12/27/18 05:18 Calcium 8.7 mg/dL (8.5-10.1) 12/27/18 05:18 Corrected Calcium TNP 12/27/18 05:18 Phosphorus 3.1 mg/dL (2.6-4.7) 12/21/18 05:45 Magnesium 2.2 mg/dL (1.7-2.9) 12/21/18 05:45 Total Bilirubin 0.40 mg/dL (0.2-1.0) 12/27/18 05:18 AST 6 Units/L (15-37) L 12/27/18 05:18 ALT < 6 Units/L (12-78) L 12/27/18 05:18 Alkaline Phosphatase 51 Units/L (46-116) 12/27/18 05:18 Total Protein 6.3 g/dL (6.4-8.2) L 12/27/18 05:18 Albumin 3.4 g/dL (3.4-5.0) 12/27/18 05:18 Globulin 2.9 g/dL (2.5-4.5) 12/27/18 05:18 Albumin/Globulin Ratio 1.2 Ratio (1.1-2.1) 12/27/18 05:18 Prealbumin 16.6 mg/dL (18-35.7) L 12/19/18 05:20 Triglycerides 97 mg/dL (0-150) 12/21/18 05:45 Carcinoembryonic Ag 3.6 ng/mL 12/14/18 06:55 Specimen Type Catherized urine 12/20/18 08:14 Urine Color Yellow (YELLOW) 12/20/18 08:14 Urine Appearance Slightly hazy (CLEAR) 12/20/18 08:14 Urine pH 7.0 (5.0 - 8.0) 12/20/18 08:14 Ur Specific [place] 1.010 (1.000-1.030) 12/20/18 08:14 Urine Protein Negative (NEGATIVE) 12/20/18 08:14 Urine Glucose (UA) Negative (NEGATIVE) 12/20/18 08:14 Urine Ketones Negative (NEGATIVE) 12/20/18 08:14 Urine Occult Blood 4+ (NEGATIVE) 12/20/18 08:14 Urine Nitrite Negative (NEGATIVE) 12/20/18 08:14 Urine Bilirubin Negative (NEGATIVE) 12/20/18 08:14 Urine Urobilinogen Normal (NORMAL) 12/20/18 08:14 Ur Leukocyte Esterase 1+ (NEGATIVE) 12/20/18 08:14 Urine RBC 3-5 /HPF (NONE SEEN) 12/20/18 08:14 Urine WBC 3-5 /HPF (NONE SEEN) 12/20/18 08:14 Ur Squamous Epith Cells Rare /HPF (NEGATIVE) 12/20/18 08:14 Amorphous Sediment 1+ /HPF (NEGATIVE) 12/20/18 08:14 Urine Bacteria Negative /HPF (NEGATIVE) 12/20/18 08:14 Urine Yeast Rare /HPF (NEGATIVE) 12/13/18 22:45 Ur Culture Indicated? No/not indicated 12/20/18 08:14 Tissue Pathology To follow 12/20/18 10:08 Blood Type O POSITIVE 12/20/18 07:50 Antibody Screen Negative 12/20/18 07:50 Crossmatch See Detail 12/20/18 07:50 - Plan (1) Small bowel obstruction Status: Acute Plan: STATUS POST SMALL BOWEL RESECTION AND DRAINAGE OF OLD ABSCESS, IV ANTIBIOTICS, CONTINUE TO MONITOR (2) Abdominal mass Status: Acute Qualifiers: Abdominal location: unspecified location Qualified Code(s): R19.00 - Intra- abdominal and pelvic swelling, mass and lump, unspecified site Plan: IV ANTIBIOTICS, IV FLUIDS, CONTINUE TO MONITOR (3) Urinary tract infection Status: Acute Qualifiers: Urinary tract infection type: acute cystitis Hematuria presence: with hematuria Qualified Code(s): N30.01 - Acute cystitis with hematuria Plan: IV CIPRO, IV FLUIDS, CONTINUE TO MONITOR (4) Hypokalemia Status: Acute Plan: REPLACEMENT PER PROTOCOL (5) Hypomagnesemia Status: Acute Plan: REPLACEMENT PER PROTOCOL (6) Generalized weakness Status: Acute Plan: PHYSICAL THERAPY, CONTINUE TO MONITOR
--- NOTE | 2018-12-27 18:09 | PCM.PROG ---
Progress Note - Progress Note for Day of Date of Exam: 12/26/18 - Subjective Subjective: IS BEING TREATED FOR A SMALL BOWEL OBSTRUCTION, ABDOMINAL MASS, AND A URINARY TRACT INFECTION DUE TO KLEBSIELLA PNEUMONIAE. IS STATUS POST SMALL BOWEL RESECTION LYSIS OF ADHESIONS, AND DRAINAGE OF OLD ABSCESS. TODAY, SHE IS ALERT AND ORIENTED, LYING IN BED ON MORNING ROUNDS. SHE REPORTS SLIGHT IMPROVEMENT IN PAIN AND LESS NAUSEA THIS MORNING. SHE DOES REPORT SEVERE WEAKNESS. ON EXAMINATION, HEART IS REGULAR IN RATE AND RHYTHM. BILATERAL LUNGS ARE NOTED WITH DIMINISHED LUNG SOUNDS THROUGHOUT. ABDOMEN IS ROUND, SOFT, AND NOTED WITH DIFFUSE TENDERNESS TO PALPATION. HYPOACTIVE BOWEL SOUNDS NOTED. HER VITALS THIS MORNING ARE: 98.2-86-18-99%-122/59. LABS WERE OBTAINED. ABNORMAL LAB VALUES INCLUDE THE FOLLOWING: WBC 11.3, RBC 2.56, HGB 7.2, HCT 21.5, POTASSIUM 2.9, CREATININE 0.50, GLUCOSE 112, AST 6, ALT <6, TOTAL PROTEIN 6.3. PATHOLOGY REPORTS ARE NEGATIVE FOR MALIGNANCY. TODAY, WE WILL TRANSFUSE WITH TWO UNITS OF PACKED RED BLOOD CELLS, DISCONTINUE LEXAPRO, AND START CYMBALTA 30MG PO DAILY. OTHERWISE, WE WILL CONTINUE WITH HER IV FLUIDS, IV ANTIBIOTICS, PROCAL, AND CURR ENT PLAN OF CARE TODAY. OTHERWISE, WE PLAN TO FOLLOW UP WITH AM LABS AND CONTINUE TO MONITOR. - Past Medical Family Social History Past Med/Fam/Surg Hx: No changes since H&P Allergies: Allergies Penicillins Allergy (Verified 12/14/18 05:11) - Review of Systems ROS: No change since H&P - Vital Signs and I&O's Vital Signs: Temperature 97.7 F Pulse Rate [Right Brachial] 79 Pulse Rate [Left Brachial] 85 Pulse Rate 94 Respiratory Rate 20 Blood Pressure [Right Arm] 126/58 Blood Pressure [Left Arm] 132/60 Blood Pressure 131/58 O2 Sat by Pulse Oximetry 96 Intake and Output: Intake & Output 12/25/18 12/26/18 12/27/18 12/28/18 11:59 11:59 11:59 11:59 Intake Total 1960 / 1959 5570 / 5570 4205 / 4205 440 / 440 Output Total 1700 / 1700 Balance 260 / 260 5570 / 5570 4205 / 4205 440 / 440 - Physical Exam Oriented: Normal Eyes: Normal Ear: Normal Nose: Normal Throat: Normal Respiratory: Generalized Cardiovascular: Normal : Normal Auscultation: Bowel Sounds: Normal Palpation: Normal Tenderness: Diffuse, Mild. negative: Rebound, Guarding, Rigidity Skin: Decreased Turgur Musculoskeletal: Normal Psychiatric: Normal Mood Description: Calm Affect: Normal Speech Pattern: Clear, Appropriate - Laboratory and Diagnostics Result Diagrams: 12/27/18 05:18 12/27/18 05:18 Labs: 12/20/18 09:00 Abdomen Gram Stain - Final 12/20/18 09:00 Abdomen Wound Culture - Preliminary 12/14/18 02:11 Blood Blood Culture - Final 12/14/18 02:00 Blood Blood Culture - Final 12/13/18 22:45 Urine,Clean Catch Urine Culture - Final Klebsiella Pneumoniae Laboratory WBC 11.3 X10^3/uL (3.6-10.0) H 12/27/18 05:18 RBC 2.56 X10^6/uL (3.5-5.4) L 12/27/18 05:18 Hgb 7.2 g/dL (12.0-16.0) L 12/27/18 05:18 Hct 21.5 % (36.0-47.0) L 12/27/18 05:18 MCV 83.9 fL (80.0-100.0) 12/27/18 05:18 MCH 28.3 pg (27.0-34.0) 12/27/18 05:18 MCHC 33.8 g/dL (33.0-35.0) 12/27/18 05:18 RDW 16.2 % (11.6-16.5) 12/27/18 05:18 Plt Count 443 X10^3/uL (150.0-450.0) 12/27/18 05:18 Plt Count Comment Adequate (ADEQUATE) 12/27/18 05:18 MPV 7.1 fL (7.4-11.0) L 12/27/18 05:18 Neut % (Auto) 82.2 % (42.0-75.0) H 12/27/18 05:18 Lymph % (Auto) 8.3 % (21.0-51.0) L 12/27/18 05:18 [place] % (Auto) 8.1 % (0.0-13.0) 12/27/18 05:18 Eos % (Auto) 1.1 % (0.9-2.9) 12/27/18 05:18 Baso % (Auto) 0.3 % (0.2-1.0) 12/27/18 05:18 Neut # (Auto) 9.3 x10^3/uL (2.2-4.8) H 12/27/18 05:18 Lymph # (Auto) 0.9 X10^3/uL (1.3-2.9) L 12/27/18 05:18 [place] # (Auto) 0.9 x10^3/uL (0.3-0.8) H 12/27/18 05:18 Eos # (Auto) 0.1 x10^3/uL (0.0-0.2) 12/27/18 05:18 Baso # (Auto) 0.0 X10^3/uL (0.0-0.1) 12/27/18 05:18 Absolute Nucleated RBC 0.0 /100WBC 12/27/18 05:18 Plt Morphology Comment Normal (NORMAL) 12/27/18 05:18 RBC Morphology Abnormal (NORMAL) A 12/27/18 05:18 Hypochromasia 1+ A 12/27/18 05:18 Anisocytosis Slight A 12/27/18 05:18 Sodium 139 mmol/L (136-145) 12/27/18 05:18 Corrected Sodium 139 mmol/L (136-145) 12/27/18 05:18 Potassium 2.9 mmol/L (3.5-5.1) L* 12/27/18 05:18 Chloride 103 mmol/L (98-107) 12/27/18 05:18 Carbon Dioxide 27.1 mmol/L (21-32) 12/27/18 05:18 BUN 7 mg/dL (7-18) 12/27/18 05:18 Creatinine 0.50 mg/dL (0.55-1.02) L 12/27/18 05:18 Est GFR (MDRD) Af Amer > 60 (>60) 12/27/18 05:18 Est GFR (MDRD) Non-Af > 60 (>60) 12/27/18 05:18 Glucose 112 mg/dL (65-99) H 12/27/18 05:18 Calcium 8.7 mg/dL (8.5-10.1) 12/27/18 05:18 Corrected Calcium TNP 12/27/18 05:18 Phosphorus 3.1 mg/dL (2.6-4.7) 12/21/18 05:45 Magnesium 2.2 mg/dL (1.7-2.9) 12/21/18 05:45 Total Bilirubin 0.40 mg/dL (0.2-1.0) 12/27/18 05:18 AST 6 Units/L (15-37) L 12/27/18 05:18 ALT < 6 Units/L (12-78) L 12/27/18 05:18 Alkaline Phosphatase 51 Units/L (46-116) 12/27/18 05:18 Total Protein 6.3 g/dL (6.4-8.2) L 12/27/18 05:18 Albumin 3.4 g/dL (3.4-5.0) 12/27/18 05:18 Globulin 2.9 g/dL (2.5-4.5) 12/27/18 05:18 Albumin/Globulin Ratio 1.2 Ratio (1.1-2.1) 12/27/18 05:18 Prealbumin 16.6 mg/dL (18-35.7) L 12/19/18 05:20 Triglycerides 97 mg/dL (0-150) 12/21/18 05:45 Carcinoembryonic Ag 3.6 ng/mL 12/14/18 06:55 Specimen Type Catherized urine 12/20/18 08:14 Urine Color Yellow (YELLOW) 12/20/18 08:14 Urine Appearance Slightly hazy (CLEAR) 12/20/18 08:14 Urine pH 7.0 (5.0 - 8.0) 12/20/18 08:14 Ur Specific [place] 1.010 (1.000-1.030) 12/20/18 08:14 Urine Protein Negative (NEGATIVE) 12/20/18 08:14 Urine Glucose (UA) Negative (NEGATIVE) 12/20/18 08:14 Urine Ketones Negative (NEGATIVE) 12/20/18 08:14 Urine Occult Blood 4+ (NEGATIVE) 12/20/18 08:14 Urine Nitrite Negative (NEGATIVE) 12/20/18 08:14 Urine Bilirubin Negative (NEGATIVE) 12/20/18 08:14 Urine Urobilinogen Normal (NORMAL) 12/20/18 08:14 Ur Leukocyte Esterase 1+ (NEGATIVE) 12/20/18 08:14 Urine RBC 3-5 /HPF (NONE SEEN) 12/20/18 08:14 Urine WBC 3-5 /HPF (NONE SEEN) 12/20/18 08:14 Ur Squamous Epith Cells Rare /HPF (NEGATIVE) 12/20/18 08:14 Amorphous Sediment 1+ /HPF (NEGATIVE) 12/20/18 08:14 Urine Bacteria Negative /HPF (NEGATIVE) 12/20/18 08:14 Urine Yeast Rare /HPF (NEGATIVE) 12/13/18 22:45 Ur Culture Indicated? No/not indicated 12/20/18 08:14 Tissue Pathology To follow 12/20/18 10:08 Blood Type O POSITIVE 12/20/18 07:50 Antibody Screen Negative 12/20/18 07:50 Crossmatch See Detail 12/20/18 07:50 - Plan (1) Small bowel obstruction Status: Acute Plan: STATUS POST SMALL BOWEL RESECTION AND DRAINAGE OF OLD ABSCESS, IV ANTIBIOTICS, CONTINUE TO MONITOR (2) Abdominal mass Status: Acute Qualifiers: Abdominal location: unspecified location Qualified Code(s): R19.00 - Intra- abdominal and pelvic swelling, mass and lump, unspecified site Plan: IV ANTIBIOTICS, IV FLUIDS, CONTINUE TO MONITOR (3) Anemia Status: Acute Qualifiers: Anemia type: iron deficiency Iron deficiency anemia type: unspecified iron deficiency Qualified Code(s): D50.9 - Iron deficiency anemia, unspecified Plan: TRANSFUSE TWO UNITS PACKED RED BLOOD CELLS, CONTINUE TO MONITOR (4) Urinary tract infection Status: Acute Qualifiers: Urinary tract infection type: acute cystitis Hematuria presence: with hematuria Qualified Code(s): N30.01 - Acute cystitis with hematuria Plan: IV CIPRO, IV FLUIDS, CONTINUE TO MONITOR (5) Hypokalemia Status: Acute Plan: REPLACEMENT PER PROTOCOL (6) Hypomagnesemia Status: Acute Plan: REPLACEMENT PER PROTOCOL (7) Generalized weakness Status: Acute Plan: PHYSICAL THERAPY, CONTINUE TO MONITOR
[2018-12-28 01:10] LABS: HEMATOCRIT 30.7 % (36.0-47.0)
[2018-12-28 01:19] LABS: HEMOGLOBIN 10.6 g/dL (12.0-16.0)
[2018-12-28] MEDS: FLAGYL TAB 500 MG PO SCH ×4 (03:41→20:17)
[2018-12-28] MEDS: D5 1/2 NS 1000 ML 1,000 ML IV SCH ×3 (03:43→20:18)
[2018-12-28 05:03] LABS: BASOPHILS % (AUTO) 0.3 % (0.2-1.0); EOSINOPHILS # (AUTO) 0.2 x10^3/uL (0.0-0.2); EOSINOPHILS % (AUTO) 1.6 % (0.9-2.9); HEMOGLOBIN 10.9 g/dL (12.0-16.0); LYMPHOCYTES # (AUTO) 0.9 X10^3/uL (1.3-2.9); LYMPHOCYTES % (AUTO) 9.4 % (21.0-51.0); MEAN CORPUSCULAR HEMOGLOBIN 28.9 pg (27.0-34.0); MEAN CORPUSCULAR VOLUME 84.9 fL (80.0-100.0); MEAN PLATELET VOLUME 7.6 fL (7.4-11.0); MONOCYTES # (AUTO) 0.9 x10^3/uL (0.3-0.8); MONOCYTES % (AUTO) 9.3 % (0.0-13.0); NEUTROPHILS % (AUTO) 79.4 % (42.0-75.0); PLATELET COUNT 439 X10^3/uL (150.0-450.0); RED BLOOD COUNT 3.77 X10^6/uL (3.5-5.4); RED CELL DISTRIBUTION WIDTH 15.3 % (11.6-16.5); WHITE BLOOD COUNT 10.1 X10^3/uL (3.6-10.0)
[2018-12-28 05:15] LABS: ALANINE AMINOTRANSFERASE < 6 Units/L (12-78); ALBUMIN 3.8 g/dL (3.4-5.0); ALKALINE PHOSPHATASE 53 Units/L (46-116); ASPARTATE AMINO TRANSFERASE 8 Units/L (15-37); BLOOD UREA NITROGEN 6 mg/dL (7-18); CALCIUM 8.9 mg/dL (8.5-10.1); CARBON DIOXIDE 26.9 mmol/L (21-32); CHLORIDE 102 mmol/L (98-107); COR NA(FOR HYPERGLY) 137 mmol/L (136-145); CREATININE 0.57 mg/dL (0.55-1.02); SODIUM 137 mmol/L (136-145); TOTAL PROTEIN 6.5 g/dL (6.4-8.2); eGFR NON BLACK RACES > 60 (>60)
[2018-12-28] MEDS: CARAFATE PO SCH ×4 (06:32→20:18)
[2018-12-28] MEDS: TORADOL 15 MG VIAL IVP PRN ×2 (07:35→20:19)
[2018-12-28] MEDS: ZOFRAN INJ 4 MG VIAL IVP PRN (07:36)
[2018-12-28] MEDS: DIFLUCAN 200 MG IV PREMIX* 200 MG/100 ML BAG IV SCH (08:51)
[2018-12-28] MEDS: PROTONIX INJ 40 MG VIAL IVP SCH ×2 (08:53→20:20)
[2018-12-28] MEDS: FOLIC ACID TAB 1 MG PO SCH (08:53)
[2018-12-28] MEDS: LOVENOX INJ 40 MG SYR SC SCH (08:54)
[2018-12-28] MEDS: OSCAL+D or CALTRATE+D PO SCH (08:54)
[2018-12-28] MEDS: VITAMIN D3 PO SCH (08:54)
[2018-12-28] MEDS: TOPROL XL PO SCH (08:54)
[2018-12-28] MEDS: CYMBALTA PO SCH (08:59)
--- NOTE | 2018-12-28 09:40 | DR.PROGNOT ---
Hospital Progress Notes - Progress Note for Day of: Progress Note Date: 12/28/18 - Chief Complaint Chief Complaint: oral intake is very poor , c/o nausea . no vomiting today . abdominal pain is less . CBC normal and pt is afebrile . - Past Medical Family Social History Past Med/Fam/Surg Hx: No changes since H&P Allergies: Allergies Penicillins Allergy (Verified 12/14/18 05:11) - Review Of Systems ROS: No change since H&P - Vital Signs Vital Signs: Temperature 98.2 F Pulse Rate [Right Brachial] 77 Pulse Rate [Left Brachial] 85 Pulse Rate 94 Respiratory Rate 20 Blood Pressure [Right Arm] 135/65 Blood Pressure [Left Arm] 132/60 Blood Pressure 131/58 O2 Sat by Pulse Oximetry 95 - Physical Exam Oriented: Normal Eyes: Normal Ear: Normal Nose: Normal Throat: Normal Respiratory: Generalized Cardiovascular: Normal : Normal GI:Auscultation: Normal GI:Palpation: Normal GI: Tenderness: Diffuse (mild diffuse tenderness . BS +), Mild. negative: Rebound, Guarding, Rigidity Skin: Decreased Turgur Musculoskeletal: Normal Psychiatric: Normal Mood Description: Calm Affect: Normal Speech Pattern: Clear, Appropriate - Laboratory and Diagnostics Result Diagrams: 12/28/18 04:44 12/28/18 04:44 Labs: 12/20/18 09:00 Abdomen Gram Stain - Final 12/20/18 09:00 Abdomen Wound Culture - Preliminary 12/14/18 02:11 Blood Blood Culture - Final 12/14/18 02:00 Blood Blood Culture - Final 12/13/18 22:45 Urine,Clean Catch Urine Culture - Final Klebsiella Pneumoniae Laboratory WBC 10.1 X10^3/uL (3.6-10.0) H 12/28/18 04:44 RBC 3.77 X10^6/uL (3.5-5.4) 12/28/18 04:44 Hgb 10.9 g/dL (12.0-16.0) L 12/28/18 04:44 Hct 32.0 % (36.0-47.0) L 12/28/18 04:44 MCV 84.9 fL (80.0-100.0) 12/28/18 04:44 MCH 28.9 pg (27.0-34.0) 12/28/18 04:44 MCHC 34.0 g/dL (33.0-35.0) 12/28/18 04:44 RDW 15.3 % (11.6-16.5) 12/28/18 04:44 Plt Count 439 X10^3/uL (150.0-450.0) 12/28/18 04:44 Plt Count Comment Adequate (ADEQUATE) 12/27/18 05:18 MPV 7.6 fL (7.4-11.0) 12/28/18 04:44 Neut % (Auto) 79.4 % (42.0-75.0) H 12/28/18 04:44 Lymph % (Auto) 9.4 % (21.0-51.0) L 12/28/18 04:44 [place] % (Auto) 9.3 % (0.0-13.0) 12/28/18 04:44 Eos % (Auto) 1.6 % (0.9-2.9) 12/28/18 04:44 Baso % (Auto) 0.3 % (0.2-1.0) 12/28/18 04:44 Neut # (Auto) 8.0 x10^3/uL (2.2-4.8) H 12/28/18 04:44 Lymph # (Auto) 0.9 X10^3/uL (1.3-2.9) L 12/28/18 04:44 [place] # (Auto) 0.9 x10^3/uL (0.3-0.8) H 12/28/18 04:44 Eos # (Auto) 0.2 x10^3/uL (0.0-0.2) 12/28/18 04:44 Baso # (Auto) 0.0 X10^3/uL (0.0-0.1) 12/28/18 04:44 Absolute Nucleated RBC 0.0 /100WBC 12/28/18 04:44 Plt Morphology Comment Normal (NORMAL) 12/27/18 05:18 RBC Morphology Abnormal (NORMAL) A 12/27/18 05:18 Hypochromasia 1+ A 12/27/18 05:18 Anisocytosis Slight A 12/27/18 05:18 Sodium 137 mmol/L (136-145) 12/28/18 04:44 Corrected Sodium 137 mmol/L (136-145) 12/28/18 04:44 Potassium 3.9 mmol/L (3.5-5.1) 12/28/18 04:44 Chloride 102 mmol/L (98-107) 12/28/18 04:44 Carbon Dioxide 26.9 mmol/L (21-32) 12/28/18 04:44 BUN 6 mg/dL (7-18) L 12/28/18 04:44 Creatinine 0.57 mg/dL (0.55-1.02) 12/28/18 04:44 Est GFR (MDRD) Af Amer > 60 (>60) 12/28/18 04:44 Est GFR (MDRD) Non-Af > 60 (>60) 12/28/18 04:44 Glucose 113 mg/dL (65-99) H 12/28/18 04:44 Calcium 8.9 mg/dL (8.5-10.1) 12/28/18 04:44 Corrected Calcium TNP 12/28/18 04:44 Phosphorus 3.1 mg/dL (2.6-4.7) 12/21/18 05:45 Magnesium 2.2 mg/dL (1.7-2.9) 12/21/18 05:45 Total Bilirubin 0.50 mg/dL (0.2-1.0) 12/28/18 04:44 AST 8 Units/L (15-37) L 12/28/18 04:44 ALT < 6 Units/L (12-78) L 12/28/18 04:44 Alkaline Phosphatase 53 Units/L (46-116) 12/28/18 04:44 Total Protein 6.5 g/dL (6.4-8.2) 12/28/18 04:44 Albumin 3.8 g/dL (3.4-5.0) 12/28/18 04:44 Globulin 2.7 g/dL (2.5-4.5) 12/28/18 04:44 Albumin/Globulin Ratio 1.4 Ratio (1.1-2.1) 12/28/18 04:44 Prealbumin 16.6 mg/dL (18-35.7) L 12/19/18 05:20 Triglycerides 97 mg/dL (0-150) 12/21/18 05:45 Carcinoembryonic Ag 3.6 ng/mL 12/14/18 06:55 Specimen Type Catherized urine 12/20/18 08:14 Urine Color Yellow (YELLOW) 12/20/18 08:14 Urine Appearance Slightly hazy (CLEAR) 12/20/18 08:14 Urine pH 7.0 (5.0 - 8.0) 12/20/18 08:14 Ur Specific [place] 1.010 (1.000-1.030) 12/20/18 08:14 Urine Protein Negative (NEGATIVE) 12/20/18 08:14 Urine Glucose (UA) Negative (NEGATIVE) 12/20/18 08:14 Urine Ketones Negative (NEGATIVE) 12/20/18 08:14 Urine Occult Blood 4+ (NEGATIVE) 12/20/18 08:14 Urine Nitrite Negative (NEGATIVE) 12/20/18 08:14 Urine Bilirubin Negative (NEGATIVE) 12/20/18 08:14 Urine Urobilinogen Normal (NORMAL) 12/20/18 08:14 Ur Leukocyte Esterase 1+ (NEGATIVE) 12/20/18 08:14 Urine RBC 3-5 /HPF (NONE SEEN) 12/20/18 08:14 Urine WBC 3-5 /HPF (NONE SEEN) 12/20/18 08:14 Ur Squamous Epith Cells Rare /HPF (NEGATIVE) 12/20/18 08:14 Amorphous Sediment 1+ /HPF (NEGATIVE) 12/20/18 08:14 Urine Bacteria Negative /HPF (NEGATIVE) 12/20/18 08:14 Urine Yeast Rare /HPF (NEGATIVE) 12/13/18 22:45 Ur Culture Indicated? 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 no malignancy . recurrent diverticulitis ( improving with ATB ). anemia. discharge when tolerating diet . - Problem Patient Problems: Patient Problems Hypoproteinemia (Acute) E77.8 Generalized weakness (Acute) R53.1 Anemia (Acute) D64.9 Small bowel obstruction (Acute) K56.609 Leukocytosis (Acute) D72.829 Hyponatremia (Acute) E87.1 Abdominal mass (Acute) R19.00 Urinary tract infection (Acute) N39.0 Hypokalemia (Acute) E87.6 Hypomagnesemia (Acute) E83.42
[2018-12-28] MEDS: PROCALAMINE 3 % 1,000 ML IV SCH ×2 (17:00→20:18)
[2018-12-29] MEDS: FLAGYL TAB 500 MG PO SCH ×2 (02:46→08:14)
[2018-12-29] MEDS: D5 1/2 NS 1000 ML 1,000 ML IV SCH ×2 (02:46→05:37)
[2018-12-29 05:19] LABS: BASOPHILS # (AUTO) 0.1 X10^3/uL (0.0-0.1); BASOPHILS % (AUTO) 0.7 % (0.2-1.0); EOSINOPHILS # (AUTO) 0.1 x10^3/uL (0.0-0.2); EOSINOPHILS % (AUTO) 1.9 % (0.9-2.9); HEMATOCRIT 30.1 % (36.0-47.0); HEMOGLOBIN 10.5 g/dL (12.0-16.0); LYMPHOCYTES % (AUTO) 12.3 % (21.0-51.0); MEAN CORPUSCULAR HEMOGLOBIN 29.2 pg (27.0-34.0); MEAN CORPUSCULAR HGB CONC 34.9 g/dL (33.0-35.0); MEAN CORPUSCULAR VOLUME 83.6 fL (80.0-100.0); MEAN PLATELET VOLUME 7.1 fL (7.4-11.0); MONOCYTES # (AUTO) 0.8 x10^3/uL (0.3-0.8); MONOCYTES % (AUTO) 10.3 % (0.0-13.0); NEUTROPHILS # (AUTO) 5.9 x10^3/uL (2.2-4.8); NEUTROPHILS % (AUTO) 74.8 % (42.0-75.0); PLATELET COUNT 417 X10^3/uL (150.0-450.0); RED CELL DISTRIBUTION WIDTH 15.6 % (11.6-16.5); WHITE BLOOD COUNT 7.9 X10^3/uL (3.6-10.0)
[2018-12-29 05:34] LABS: ALANINE AMINOTRANSFERASE < 6 Units/L (12-78); ALBUMIN 3.2 g/dL (3.4-5.0); ALKALINE PHOSPHATASE 52 Units/L (46-116); ASPARTATE AMINO TRANSFERASE 6 Units/L (15-37); BLOOD UREA NITROGEN 7 mg/dL (7-18); CALCIUM 8.6 mg/dL (8.5-10.1); CARBON DIOXIDE 24.5 mmol/L (21-32); CHLORIDE 97 mmol/L (98-107); COR CA(FOR HYPOALB) 9.2 mg/dL (8.5-10.1); COR NA(FOR HYPERGLY) 133 mmol/L (136-145); CREATININE 0.45 mg/dL (0.55-1.02); SODIUM 133 mmol/L (136-145); TOTAL PROTEIN 6.2 g/dL (6.4-8.2); eGFR NON BLACK RACES > 60 (>60)
[2018-12-29] MEDS: CARAFATE PO SCH (05:37)
[2018-12-29] MEDS: KLOR-CON PO PRN (06:13)
[2018-12-29] MEDS: MAGNESIUM SULFATE 1 GRAM/100 mL PREMIX 1 GM/100 ML BAG IV PRN ×4 (07:16→10:48)
[2018-12-29] MEDS: DIFLUCAN 200 MG IV PREMIX* 200 MG/100 ML BAG IV SCH (08:12)
[2018-12-29] MEDS: LOVENOX INJ 40 MG SYR SC SCH (08:13)
[2018-12-29] MEDS: VITAMIN D3 PO SCH (08:14)
[2018-12-29] MEDS: OSCAL+D or CALTRATE+D PO SCH (08:14)
[2018-12-29] MEDS: FOLIC ACID TAB 1 MG PO SCH (08:14)
[2018-12-29] MEDS: PERCOCET TAB 5/325 MG PO PRN (08:14)
[2018-12-29] MEDS: PROTONIX INJ 40 MG VIAL IVP SCH (08:15)
[2018-12-29] MEDS: TOPROL XL PO SCH (08:15)
[2018-12-29] MEDS: CYMBALTA PO SCH (08:21)
[2018-12-29 14:26] VITALS: BP 124/70
== END 2018-12-29 13:30 | disposition home health service (06) | DRG 330 ==
LOC: MED/SURG 20:34 → ER 20:34 → OBSVTOIN 12-14 05:04 → MED/SURG 12-14 05:59
PROVIDERS: ADMIT Obstetrics & Gynecology Obstetrics; ATTEND Internal Medicine
PROC: SIGMOID (2018-12-15 07:35)
PROC: CLINEPL (2018-12-16 10:35)
DX: B96.1 Klebsiella pneumoniae [K. pneumoniae] as the cause of diseases classified elsewhere; D72.828 Other elevated white blood cell count; N30.01 Acute cystitis with hematuria; E86.0 Dehydration; R19.00 Intra-abdominal and pelvic swelling, mass and lump, unspecified site; R06.02 Shortness of breath; E87.1 Hypo-osmolality and hyponatremia; K64.9 Unspecified hemorrhoids; K56.51 Intestinal adhesions [bands], with partial obstruction; R26.89 Other abnormalities of gait and mobility; E83.42 Hypomagnesemia; K25.9 Gastric ulcer, unspecified as acute or chronic, without hemorrhage or perforation; I87.2 Venous insufficiency (chronic) (peripheral); K57.20 Diverticulitis of large intestine with perforation and abscess without bleeding
CPT/HCPCS: 36415; 36430; 36556; 70450; 71010; 71045; 74000; 74018; 74176; 74177; 76000; 80048; 80053; 81001; 82378; 83735; 84100; 84132; 84134; 84478; 85014; 85018; 85025; 86850; 86900; 86901; 86922; 87040; 87070; 87075; 87077; 87086; 87088; 87186; 87205; 88305; 88307; 88342; 94760; 96365; 96367; 96372; 96374; 96375; 97110; 97116; 97162; 97166; 97535; 99284; A4217; A4222; B4189; B5200; C9113; J3490; P9016; P9047; S0030; J0330; J0744; J1100; J1170; J1200; J1450; J1650; J1885; J2250; J2270; J2405; J2550; J2704; J2710; J3010; J3475; J3480; J7030; J7040; J7050; J7120; S5010

== ENCOUNTER 2019-01-02 19:06 | Inpatient (IN) ==
--- NOTE | 2019-01-02 20:56 | DR.EXTPAIN ---
HPI Time seen Time Seen by Provider: 01/02/19 20:56 PCP Primary Care Physician: DR. SETHI Complaint/Symptoms Chief Complaint Doctor Comments: INCREASING ABDOMINAL PAIN Chief Complaint:: STATES SHE HAD A COLON RESECTION A WEEK AGO. STATES SHE STARTED HAVING SEVERE ABDOMINAL PAIN THAT IS UNCONTROLLED BY HER HOME PAIN MEDICATION. Self Treatment fo Chief Complaint: HYDROCODONE AT 1600 Source History Provided: Patient Mode of arrival Mode of Arrival: Wheelchair Timing Onset of Chief Complaint: 01/02/19 PMH PMH Past Medical History: Yes Past Medical History: Arthritis, Depression and GERD Past Medical History Comment: TACHYCARDIA BENIGN HTN DIVERTICULITIS Past Surgical History: Yes Surgical History: Appendectomy Past Surgical History Comment: COLON RESECTION Family History History of Family Medical Conditions: Yes Family Medical History: Diabetes Mellitus, Heart Failure and Sudden Cardiac Social History Does patient currently use any type of tobacco product: No Have you used tobacco products in the last 12 months: No Does any household member use tobacco: No Alcohol Use: None Do you use any recreational Drugs:: No Lives With: Alone Lives Where: Home infectious screening In the last 2 months have you had wt loss of >10#?: NO Have you had fever, night sweats or hemotysis?: No Have you traveled outside the country in the last 6 months?: No Isolation: Standard ROS Review of Systems Constitutional: No Symptoms Reported Eyes: No Symptoms Reported ENTM: No Symptoms Reported Respiratoy: No Symptoms Reported Cardiovascular: No Symptoms Reported Gastrointestinal/Abdominal: No Symptoms Reported Genitourinary: No Symptoms Reported and See HPI; negative Dysuria, Frequency and Hematuria Neurological: No Symptoms Reported, See HPI, Weakness and Dizziness; negative Headache Musculoskeletal: No Symptoms Reported and See HPI; negative Shoulder Integumentary: No Symptoms Reported and See HPI Hematologic/Lymphatic: No Symptoms Reported and See HPI Endocrine: See HPI and Decreased Appetite; negative Increased Thirst and Increased Urine Psychiatric: No Symptoms Reported and See HPI All Other Systems: Reviewed and Negative PE Vital Signs Vitals: Temperature 98.7 F Pulse Rate [Left Brachial] 88 Pulse Rate 85 Respiratory Rate 18 Blood Pressure [Right Arm] 122/58 Blood Pressure [Left Arm] 144/66 Blood Pressure 122/58 O2 Sat by Pulse Oximetry 95 ROR Labs Reviewed Result Diagrams: 01/02/19 20:54 01/02/19 20:54 Laboratory: WBC 12.4 X10^3/uL (3.6-10.0) H 01/02/19 20:54 RBC 4.02 X10^6/uL (3.5-5.4) 01/02/19 20:54 Hgb 11.2 g/dL (12.0-16.0) L 01/02/19 20:54 Hct 33.6 % (36.0-47.0) L 01/02/19 20:54 MCV 83.7 fL (80.0-100.0) 01/02/19 20:54 MCH 27.9 pg (27.0-34.0) 01/02/19 20:54 MCHC 33.4 g/dL (33.0-35.0) 01/02/19 20:54 RDW 15.8 % (11.6-16.5) 01/02/19 20:54 Plt Count 399 X10^3/uL (150.0-450.0) 01/02/19 20:54 MPV 7.5 fL (7.4-11.0) 01/02/19 20:54 Neut % (Auto) 82.1 % (42.0-75.0) H 01/02/19 20:54 Lymph % (Auto) 6.6 % (21.0-51.0) L 01/02/19 20:54 [place] % (Auto) 10.8 % (0.0-13.0) 01/02/19 20:54 Eos % (Auto) 0.2 % (0.9-2.9) L 01/02/19 20:54 Baso % (Auto) 0.3 % (0.2-1.0) 01/02/19 20:54 Neut # (Auto) 10.1 x10^3/uL (2.2-4.8) H 01/02/19 20:54 Lymph # (Auto) 0.8 X10^3/uL (1.3-2.9) L 01/02/19 20:54 [place] # (Auto) 1.3 x10^3/uL (0.3-0.8) H 01/02/19 20:54 Eos # (Auto) 0.0 x10^3/uL (0.0-0.2) 01/02/19 20:54 Baso # (Auto) 0.0 X10^3/uL (0.0-0.1) 01/02/19 20:54 Absolute Nucleated RBC 0.0 /100WBC 01/02/19 20:54 Sodium 130 mmol/L (136-145) L 01/02/19 20:54 Corrected Sodium 131 mmol/L (136-145) L 01/02/19 20:54 Potassium 2.9 mmol/L (3.5-5.1) L* 01/02/19 20:54 Chloride 91 mmol/L (98-107) L 01/02/19 20:54 Carbon Dioxide 25.9 mmol/L (21-32) 01/02/19 20:54 BUN 7 mg/dL (7-18) 01/02/19 20:54 Creatinine 0.50 mg/dL (0.55-1.02) L 01/02/19 20:54 Est GFR (MDRD) Af Amer > 60 (>60) 01/02/19 20:54 Est GFR (MDRD) Non-Af > 60 (>60) 01/02/19 20:54 Glucose 128 mg/dL (65-99) H 01/02/19 20:54 Calcium 8.7 mg/dL (8.5-10.1) 01/02/19 20:54 Corrected Calcium 9.3 mg/dL (8.5-10.1) 01/02/19 20:54 Total Bilirubin 0.80 mg/dL (0.2-1.0) 01/02/19 20:54 AST 11 Units/L (15-37) L 01/02/19 20:54 ALT < 6 Units/L (12-78) L 01/02/19 20:54 Alkaline Phosphatase 72 Units/L (46-116) 01/02/19 20:54 Total Protein 6.7 g/dL (6.4-8.2) 01/02/19 20:54 Albumin 3.3 g/dL (3.4-5.0) L 01/02/19 20:54 Globulin 3.4 g/dL (2.5-4.5) 01/02/19 20:54 Albumin/Globulin Ratio 1.0 Ratio (1.1-2.1) L 01/02/19 20:54 Amylase 26 Units/L (25-115) 01/02/19 20:54 Lipase 48 Units/L (73-393) L 01/02/19 20:54 Specimen Type Catherized urine 01/03/19 02:30 Urine Color Yellow (YELLOW) 01/03/19 02:30 Urine Appearance Clear (CLEAR) 01/03/19 02:30 Urine pH 6.0 (5.0 - 8.0) 01/03/19 02:30 Ur Specific [place] 1.010 (1.000-1.030) 01/03/19 02:30 Urine Protein 2+ (NEGATIVE) 01/03/19 02:30 Urine Glucose (UA) Negative (NEGATIVE) 01/03/19 02:30 Urine Ketones 1+ (NEGATIVE) 01/03/19 02:30 Urine Occult Blood 5+ (NEGATIVE) 01/03/19 02:30 Urine Nitrite Negative (NEGATIVE) 01/03/19 02:30 Urine Bilirubin Negative (NEGATIVE) 01/03/19 02:30 Urine Urobilinogen Normal (NORMAL) 01/03/19 02:30 Ur Leukocyte Esterase 1+ (NEGATIVE) 01/03/19 02:30 Urine RBC 5-10 /HPF (NONE SEEN) 01/03/19 02:30 Urine WBC 0-2 /HPF (NONE SEEN) 01/03/19 02:30 Ur Squamous Epith Cells Rare /HPF (NEGATIVE) 01/03/19 02:30 Urine Bacteria Negative /HPF (NEGATIVE) 01/03/19 02:30 Ur Culture Indicated? No/not indicated 01/03/19 02:30 Opioid Opioid Risk Tool Total: 0 Total Score Risk Category: Low Risk Copyright: Rolando MEJIA predicting aberrant behaviors Diagnosis Discharge Problem: Hypokalemia, Abdominal pain, Abdominal mass, Dehydration Instructions Forms: Excuse From Work
[2019-01-02] MEDS ORDERED: DILAUDID INJ IVP ONE ×2 (21:11→23:12)
[2019-01-02 21:15] LABS: BLOOD UREA NITROGEN 7 mg/dL (7-18); CALCIUM 8.7 mg/dL (8.5-10.1); CARBON DIOXIDE 25.9 mmol/L (21-32); CHLORIDE 91 mmol/L (98-107); COR NA(FOR HYPERGLY) 131 mmol/L (136-145); SODIUM 130 mmol/L (136-145); eGFR NON BLACK RACES > 60 (>60)
[2019-01-02 21:19] LABS: ALANINE AMINOTRANSFERASE < 6 Units/L (12-78); ALBUMIN 3.3 g/dL (3.4-5.0); ALKALINE PHOSPHATASE 72 Units/L (46-116); AMYLASE 26 Units/L (25-115); ASPARTATE AMINO TRANSFERASE 11 Units/L (15-37); COR CA(FOR HYPOALB) 9.3 mg/dL (8.5-10.1); LIPASE 48 Units/L (73-393); TOTAL PROTEIN 6.7 g/dL (6.4-8.2)
[2019-01-02 21:20] LABS: BASOPHILS % (AUTO) 0.3 % (0.2-1.0); EOSINOPHILS % (AUTO) 0.2 % (0.9-2.9); HEMATOCRIT 33.6 % (36.0-47.0); HEMOGLOBIN 11.2 g/dL (12.0-16.0); LYMPHOCYTES # (AUTO) 0.8 X10^3/uL (1.3-2.9); LYMPHOCYTES % (AUTO) 6.6 % (21.0-51.0); MEAN CORPUSCULAR HEMOGLOBIN 27.9 pg (27.0-34.0); MEAN CORPUSCULAR HGB CONC 33.4 g/dL (33.0-35.0); MEAN CORPUSCULAR VOLUME 83.7 fL (80.0-100.0); MEAN PLATELET VOLUME 7.5 fL (7.4-11.0); MONOCYTES # (AUTO) 1.3 x10^3/uL (0.3-0.8); MONOCYTES % (AUTO) 10.8 % (0.0-13.0); NEUTROPHILS # (AUTO) 10.1 x10^3/uL (2.2-4.8); NEUTROPHILS % (AUTO) 82.1 % (42.0-75.0); PLATELET COUNT 399 X10^3/uL (150.0-450.0); RED BLOOD COUNT 4.02 X10^6/uL (3.5-5.4); RED CELL DISTRIBUTION WIDTH 15.8 % (11.6-16.5); WHITE BLOOD COUNT 12.4 X10^3/uL (3.6-10.0)
[2019-01-02] MEDS ORDERED: NS + KCL 20 MEQ/L 1,000 ML ONE (21:24)
[2019-01-02] MEDS ORDERED: DILAUDID INJ ONE ×2 (21:27→23:06)
[2019-01-02] MEDS ORDERED: NS + KCL 20 MEQ/L 1,000 ML IV SCH (22:00)
[2019-01-03] MEDS ORDERED: PHENERGAN INJ 25 MG IM ONE (00:28)
--- NOTE | 2019-01-03 02:09 | CT ---
CT abdomen and pelvis without contrast Indication: Abdominal pain, recent colon resection. Comparison: 12/19/2018 Technique: CT images of the abdomen and pelvis were obtained without contrast. Automatic exposure control was utilized. Findings: No acute osseous abnormality. The lung bases demonstrate small layering pleural effusions with bilateral lower lobe subsegmental atelectasis. Evaluation is significantly limited without contrast. Changes of interval laparotomy with associated bowel surgery is noted. There is a soft tissue masslike density within the lower abdomen and pelvis measuring 10.9 x 10.7 cm in maximum AP dimension. Small gas-fluid levels are seen within the superior portion of this density. Several small gas foci are noted inferiorly (for example axial images 59-62). Delineation of bowel loops in this region is limited by the soft tissue density and lack of oral and IV contrast. There is some nonspecific perirectal fat stranding. There is sub solid stool throughout the normal caliber colon. No obvious small bowel dilatation can be identified. No evidence for free air. The urinary bladder is unremarkable. There is aortoiliac atherosclerosis, without aneurysm. Within noncontrast limitations, the liver, gallbladder, spleen, stomach, adrenals, and left kidney are unremarkable. There is mild right-sided hydronephrosis. No radiopaque urinary stone is identified. Impression: Large masslike collection within the lower abdomen and pelvis, status post recent bowel surgery. Evaluation is significantly limited without IV or oral contrast, but considerations include postoperative bowel leak, abscess, and/or hematoma. Surgical evaluation is recommended. Mild right-sided hydronephrosis, probably from mass effect on the ureter by the collection. Small bilateral pleural effusions with subsegmental atelectasis of the lung bases. Underlying infiltrate is not excluded. Reported By:
[2019-01-03] MEDS: NS + KCL 20 MEQ/L 1,000 ML IV SCH ×2 (02:48→19:48)
[2019-01-03] MEDS ORDERED: FLAGYL IV PREMIX 500 MG BAG 500 MG/100 ML BAG IV ONE ×2 (02:58→03:20)
[2019-01-03 03:06] LABS: BILIRUBIN,URINE NEGATIVE (NEGATIVE); BLOOD/HEMOGLOBIN,URINE 5+ (NEGATIVE); GLUCOSE, URINE NEGATIVE (NEGATIVE); KETONES,URINE 1+ (NEGATIVE); LEUKOCYTE ESTERASE ,URINE 1+ (NEGATIVE); NITRITES,URINE NEGATIVE (NEGATIVE); PROTEIN,URINE 2+ (NEGATIVE); UROBILINOGEN,URINE NORMAL (NORMAL)
[2019-01-03 03:11] LABS: APPEARANCE,URINE CLEAR (CLEAR); BACTERIA,URINE NEGATIVE /HPF (NEGATIVE); COLOR,URINE YELLOW (YELLOW); SQUAMOUS EPITHELIAL CELL,UR RARE /HPF (NEGATIVE)
[2019-01-03] MEDS ORDERED: DILAUDID INJ ONE (04:06)
[2019-01-03] MEDS: DILAUDID INJ IVP PRN ×4 (04:11→18:25)
[2019-01-03 06:11] LABS: BASOPHILS % (AUTO) 0.1 % (0.2-1.0); EOSINOPHILS % (AUTO) 0.1 % (0.9-2.9); HEMOGLOBIN 11.3 g/dL (12.0-16.0); LYMPHOCYTES # (AUTO) 0.8 X10^3/uL (1.3-2.9); LYMPHOCYTES % (AUTO) 5.3 % (21.0-51.0); MEAN CORPUSCULAR HEMOGLOBIN 28.4 pg (27.0-34.0); MEAN CORPUSCULAR HGB CONC 34.1 g/dL (33.0-35.0); MEAN CORPUSCULAR VOLUME 83.4 fL (80.0-100.0); MEAN PLATELET VOLUME 7.4 fL (7.4-11.0); MONOCYTES # (AUTO) 1.3 x10^3/uL (0.3-0.8); MONOCYTES % (AUTO) 8.6 % (0.0-13.0); NEUTROPHILS # (AUTO) 12.6 x10^3/uL (2.2-4.8); NEUTROPHILS % (AUTO) 85.9 % (42.0-75.0); PLATELET COUNT 393 X10^3/uL (150.0-450.0); RED BLOOD COUNT 3.96 X10^6/uL (3.5-5.4); RED CELL DISTRIBUTION WIDTH 15.9 % (11.6-16.5); WHITE BLOOD COUNT 14.6 X10^3/uL (3.6-10.0)
[2019-01-03] MEDS ORDERED: MICRO K EXTEN CAP 10 MEQ PO PRN (06:19)
[2019-01-03] MEDS ORDERED: POTASSIUM CHLORIDE LIQ 20 MEQ UDC PO PRN (06:19)
[2019-01-03] MEDS ORDERED: POTASSIUM CHL 40 MEQ/NS 0.45% 500 ML IV PRN (06:19)
[2019-01-03] MEDS ORDERED: POTASSIUM CHL 60 MEQ/NS 0.45% 500 ML IV PRN (06:19)
[2019-01-03 06:21] LABS: ALANINE AMINOTRANSFERASE < 6 Units/L (12-78); ALBUMIN 2.9 g/dL (3.4-5.0); ALKALINE PHOSPHATASE 71 Units/L (46-116); AMYLASE 23 Units/L (25-115); ASPARTATE AMINO TRANSFERASE 10 Units/L (15-37); BLOOD UREA NITROGEN 5 mg/dL (7-18); CALCIUM 8.4 mg/dL (8.5-10.1); CARBON DIOXIDE 25.5 mmol/L (21-32); CHLORIDE 96 mmol/L (98-107); COR CA(FOR HYPOALB) 9.3 mg/dL (8.5-10.1); COR NA(FOR HYPERGLY) 133 mmol/L (136-145); CREATININE 0.44 mg/dL (0.55-1.02); LIPASE 39 Units/L (73-393); SODIUM 133 mmol/L (136-145); TOTAL PROTEIN 6.1 g/dL (6.4-8.2); eGFR NON BLACK RACES > 60 (>60)
[2019-01-03 07:06] VITALS: BMI 17.7
[2019-01-03] MEDS: CYMBALTA PO SCH (08:55)
[2019-01-03] MEDS: FLAGYL IV PREMIX 500 MG BAG 500 MG/100 ML BAG IV SCH ×3 (08:58→21:25)
[2019-01-03] MEDS: NADOLOL 10 MG PO SCH (09:06)
[2019-01-03] MEDS: K-RIDER 10 MEQ/NS 100 ML 10 MEQ/100 ML BAG IV PRN ×6 (10:46→21:23)
[2019-01-03] MEDS ORDERED: PHARMACY CONSULT - DOSE _____ XX SCH (11:00)
[2019-01-03] MEDS: LEVAQUIN PREMIX IV 500 MG 500 MG/100 ML BAG IV SCH (12:26)
[2019-01-03] MEDS: FORTAZ or TAZICEF VIAL INJ IVP SCH ×3 (12:26→21:52)
--- NOTE | 2019-01-03 14:51 | DR.PROGNOT ---
Hospital Progress Notes - Progress Note for Day of: Progress Note Date: 01/03/19 - Chief Complaint Chief Complaint: pt was seen with abdominal pain . s/p exploratory laparotomy , small bowell resection for SBO and diverticular abscess with adhesion .. no malignancy found . - Past Medical Family Social History Past Med/Fam/Surg Hx: No changes since H&P (h/o large distal gastric ulcer .) Allergies: Allergies Penicillins Allergy (Verified 12/14/18 05:11) - Review Of Systems ROS: No change since H&P - Vital Signs Vital Signs: Temperature 98.6 F Pulse Rate [Left Brachial] 97 Pulse Rate 98 Respiratory Rate 20 Blood Pressure [Right Arm] 120/56 Blood Pressure [Left Arm] 144/66 Blood Pressure 122/58 O2 Sat by Pulse Oximetry 94 - Physical Exam Oriented: Normal Eyes: Normal Ear: Normal Nose: Normal Throat: Normal Respiratory: Normal Cardiovascular: Normal : Normal GI:Auscultation: Normal GI:Palpation: Normal GI: Tenderness: Diffuse (generalized abdominal tenderness , BS+ .clean incision ( christopher were removed )) Skin: Normal Musculoskeletal: Normal Speech Pattern: Clear, Appropriate - Laboratory and Diagnostics Result Diagrams: 01/03/19 05:20 01/03/19 05:20 Labs: Laboratory WBC 14.6 X10^3/uL (3.6-10.0) H 01/03/19 05:20 RBC 3.96 X10^6/uL (3.5-5.4) 01/03/19 05:20 Hgb 11.3 g/dL (12.0-16.0) L 01/03/19 05:20 Hct 33.0 % (36.0-47.0) L 01/03/19 05:20 MCV 83.4 fL (80.0-100.0) 01/03/19 05:20 MCH 28.4 pg (27.0-34.0) 01/03/19 05:20 MCHC 34.1 g/dL (33.0-35.0) 01/03/19 05:20 RDW 15.9 % (11.6-16.5) 01/03/19 05:20 Plt Count 393 X10^3/uL (150.0-450.0) 01/03/19 05:20 MPV 7.4 fL (7.4-11.0) 01/03/19 05:20 Neut % (Auto) 85.9 % (42.0-75.0) H 01/03/19 05:20 Lymph % (Auto) 5.3 % (21.0-51.0) L 01/03/19 05:20 [place] % (Auto) 8.6 % (0.0-13.0) 01/03/19 05:20 Eos % (Auto) 0.1 % (0.9-2.9) L 01/03/19 05:20 Baso % (Auto) 0.1 % (0.2-1.0) L 01/03/19 05:20 Neut # (Auto) 12.6 x10^3/uL (2.2-4.8) H 01/03/19 05:20 Lymph # (Auto) 0.8 X10^3/uL (1.3-2.9) L 01/03/19 05:20 [place] # (Auto) 1.3 x10^3/uL (0.3-0.8) H 01/03/19 05:20 Eos # (Auto) 0.0 x10^3/uL (0.0-0.2) 01/03/19 05:20 Baso # (Auto) 0.0 X10^3/uL (0.0-0.1) 01/03/19 05:20 Absolute Nucleated RBC 0.0 /100WBC 01/03/19 05:20 Sodium 133 mmol/L (136-145) L 01/03/19 05:20 Corrected Sodium 133 mmol/L (136-145) L 01/03/19 05:20 Potassium 2.9 mmol/L (3.5-5.1) L* 01/03/19 05:20 Chloride 96 mmol/L (98-107) L 01/03/19 05:20 Carbon Dioxide 25.5 mmol/L (21-32) 01/03/19 05:20 BUN 5 mg/dL (7-18) L 01/03/19 05:20 Creatinine 0.44 mg/dL (0.55-1.02) L 01/03/19 05:20 Est GFR (MDRD) Af Amer > 60 (>60) 01/03/19 05:20 Est GFR (MDRD) Non-Af > 60 (>60) 01/03/19 05:20 Glucose 114 mg/dL (65-99) H 01/03/19 05:20 Calcium 8.4 mg/dL (8.5-10.1) L 01/03/19 05:20 Corrected Calcium 9.3 mg/dL (8.5-10.1) 01/03/19 05:20 Magnesium 1.2 mg/dL (1.7-2.9) L 01/03/19 05:20 Total Bilirubin 0.70 mg/dL (0.2-1.0) 01/03/19 05:20 AST 10 Units/L (15-37) L 01/03/19 05:20 ALT < 6 Units/L (12-78) L 01/03/19 05:20 Alkaline Phosphatase 71 Units/L (46-116) 01/03/19 05:20 Total Protein 6.1 g/dL (6.4-8.2) L 01/03/19 05:20 Albumin 2.9 g/dL (3.4-5.0) L 01/03/19 05:20 Globulin 3.2 g/dL (2.5-4.5) 01/03/19 05:20 Albumin/Globulin Ratio 0.9 Ratio (1.1-2.1) L 01/03/19 05:20 Amylase 23 Units/L (25-115) L 01/03/19 05:20 Lipase 39 Units/L (73-393) L 01/03/19 05:20 Specimen Type Catherized urine 01/03/19 02:30 Urine Color Yellow (YELLOW) 01/03/19 02:30 Urine Appearance Clear (CLEAR) 01/03/19 02:30 Urine pH 6.0 (5.0 - 8.0) 01/03/19 02:30 Ur Specific [place] 1.010 (1.000-1.030) 01/03/19 02:30 Urine Protein 2+ (NEGATIVE) 01/03/19 02:30 Urine Glucose (UA) Negative (NEGATIVE) 01/03/19 02:30 Urine Ketones 1+ (NEGATIVE) 01/03/19 02:30 Urine Occult Blood 5+ (NEGATIVE) 01/03/19 02:30 Urine Nitrite Negative (NEGATIVE) 01/03/19 02:30 Urine Bilirubin Negative (NEGATIVE) 01/03/19 02:30 Urine Urobilinogen Normal (NORMAL) 01/03/19 02:30 Ur Leukocyte Esterase 1+ (NEGATIVE) 01/03/19 02:30 Urine RBC 5-10 /HPF (NONE SEEN) 01/03/19 02:30 Urine WBC 0-2 /HPF (NONE SEEN) 01/03/19 02:30 Ur Squamous Epith Cells Rare /HPF (NEGATIVE) 01/03/19 02:30 Urine Bacteria Negative /HPF (NEGATIVE) 01/03/19 02:30 Ur Culture Indicated? No/not indicated 01/03/19 02:30 - Assessment and Plan 1: abdominal pain . diverticulitis with diverticular abscess . s/p laparotomy , small bowel resection. gastric ulcer . on IV ATB ,IV Protonix and oral Carafate . - Problem Patient Problems: Patient Problems Hypokalemia (Acute) E87.6 Abdominal pain (Acute) R10.9 Abdominal mass (Acute) R19.00 Dehydration (Acute) E86.0
[2019-01-03] MEDS: CARAFATE PO SCH ×2 (17:06→21:27)
[2019-01-03] MEDS: PHENERGAN INJ 25 MG IM PRN (18:26)
[2019-01-03] MEDS: MAGNESIUM SULFATE 1 GRAM/100 mL PREMIX 1 GM/100 ML BAG IV PRN ×4 (19:47→23:08)
[2019-01-04] MEDS: FLAGYL IV PREMIX 500 MG BAG 500 MG/100 ML BAG IV SCH ×4 (02:20→20:43)
[2019-01-04] MEDS: DILAUDID INJ IVP PRN ×4 (02:20→20:03)
[2019-01-04] MEDS: PHENERGAN INJ 25 MG IM PRN ×2 (02:21→15:34)
[2019-01-04] MEDS: NS + KCL 20 MEQ/L 1,000 ML IV SCH ×3 (04:18→20:04)
[2019-01-04] MEDS: FORTAZ or TAZICEF VIAL INJ IVP SCH ×3 (05:36→21:45)
[2019-01-04] MEDS: CARAFATE PO SCH ×4 (05:36→20:44)
[2019-01-04 05:44] LABS: BASOPHILS % (AUTO) 0.2 % (0.2-1.0); EOSINOPHILS # (AUTO) 0.1 x10^3/uL (0.0-0.2); EOSINOPHILS % (AUTO) 0.5 % (0.9-2.9); HEMATOCRIT 30.3 % (36.0-47.0); LYMPHOCYTES # (AUTO) 1.1 X10^3/uL (1.3-2.9); LYMPHOCYTES % (AUTO) 9.1 % (21.0-51.0); MEAN CORPUSCULAR HEMOGLOBIN 27.9 pg (27.0-34.0); MEAN CORPUSCULAR HGB CONC 33.2 g/dL (33.0-35.0); MEAN CORPUSCULAR VOLUME 84.2 fL (80.0-100.0); MEAN PLATELET VOLUME 7.5 fL (7.4-11.0); MONOCYTES # (AUTO) 1.1 x10^3/uL (0.3-0.8); MONOCYTES % (AUTO) 9.7 % (0.0-13.0); NEUTROPHILS # (AUTO) 9.5 x10^3/uL (2.2-4.8); NEUTROPHILS % (AUTO) 80.5 % (42.0-75.0); PLATELET COUNT 360 X10^3/uL (150.0-450.0); WHITE BLOOD COUNT 11.7 X10^3/uL (3.6-10.0)
[2019-01-04 05:56] LABS: ALANINE AMINOTRANSFERASE < 6 Units/L (12-78); ALBUMIN 2.4 g/dL (3.4-5.0); ALKALINE PHOSPHATASE 65 Units/L (46-116); ASPARTATE AMINO TRANSFERASE 12 Units/L (15-37); BLOOD UREA NITROGEN 5 mg/dL (7-18); CALCIUM 8.1 mg/dL (8.5-10.1); CARBON DIOXIDE 26.7 mmol/L (21-32); CHLORIDE 101 mmol/L (98-107); COR CA(FOR HYPOALB) 9.4 mg/dL (8.5-10.1); CREATININE 0.41 mg/dL (0.55-1.02); MAGNESIUM 2.1 mg/dL (1.7-2.9); SODIUM 136 mmol/L (136-145); TOTAL PROTEIN 5.9 g/dL (6.4-8.2); eGFR NON BLACK RACES > 60 (>60)
[2019-01-04] MEDS: LEVAQUIN PREMIX IV 500 MG 500 MG/100 ML BAG IV SCH (09:03)
[2019-01-04] MEDS: NADOLOL 10 MG PO SCH (09:10)
[2019-01-04] MEDS: CYMBALTA PO SCH (09:11)
--- NOTE | 2019-01-04 11:45 | DR.UPDATE ---
H&P Update History and Physical Update: History and Physical reviewed and patient examined. Changes noted: Yes with the following: HISTORY AND PHYSICAL WAS COMPLETED WITH HER LAST ADMISSION ON 12/14/18. SHE WAS DISCHARGED HOME FROM THE HOSPITAL ON 12/29/18 AFTER DRAINAGE OF PELVIC ABSCESS, LYSIS OF EXTENSIVE ABDOMINAL ADHESIONS, AND TREATMENT FO A PARTIAL SMALL BOWEL RESECTION X 2 WITH END TO END ANASTOMOSIS. SHE WAS DISCHARGED HOME ON CIPRO 500MG PO BID, FLAGYL 500MG PO Q8H, PROTONIX 40MG BID, AND HYDROCODONE FOR PAIN. SHE RETURNED TO THE ER TODAY WITH COMPLAINTS OF FEVER AND SEVERE ABDOMINAL PAIN THAT IS UNCONTROLLED BY HER PAIN MEDICATION AT HOME. SHE ALSO CONTINUES WITH SEVERE WEAKNESS AND DECREASED APPETITE. ON ARRIVAL TO THE ER, VITALS WERE 100.3-84-18-95%-126/60. LABS WERE OBTAINED. ABNORMAL LAB VALUES INCLUDE THE FOLLOWING: WBC 12.4, HGB 11.2, HCT 33.6, SODIUM 130, POTASSIUM 2.9, CHLORIDE 91, CREATININE 0.50, GLUCOSE 128, AST 11, ALT <6, ALBUMIN 3.3, LIPASE 48. A URINALYSIS WAS OBTAINED AND REVEALED: WBC 0-2, RBC 5- 10, LEUKOCYTES 1+, BACTERIA NEGATIVE, OCCULT BLOOD 5+, KETONES 1+. AN ABDOMEN/ PELVIS CT WITHOUT CONTRAST WAS OBTAINED AND REVEALED: Large masslike collection within the lower abdomen and pelvis, status post recent bowel surgery. Evaluation is significantly limited without IV or oral contrast, but considerations include postoperative bowel leak, abscess, and/or hematoma. Surgical evaluation is recommended. Mild right-sided hydronephrosis, probably from mass effect on the ureter by the collection. Small bilateral pleural effusions with subsegmental atelectasis of the lung bases. Underlying infiltrate is not excluded. WE ADMITTED PATIENT FOR FURTHER EVALUATION AND TREATMENT OF ABDOMINAL PAIN, POST OP ABDOMINAL ABSCESS, HYPOKALEMIA, AND DEHYDRATION. SHE WAS STARTED ON NORMAL SALINE WITH 20MEQ KCL AT 125ML/HR, LEVAQUIN 500MG IV DAILY, FLAGYL 500MG IV Q6H, AND FORTAZ 1G IV Q8H. SHE WAS ALSO STARTED ON THE POTASSIUM AND MAGNESIUM REPLACEMENT PROTOCOL. WITH CONSULT WITH HER TODAY. WE WILL REPEAT AN ABDOMEN/PELVIS CT WITH CONTRAST TOMORROW MORNING. OTHERWISE, WE PLAN TO FOLLOW UP WITH AM LABS AND CONTINUE TO MONITOR. Prescription drug monitoring program results: PDMP was not reviewed
--- NOTE | 2019-01-04 12:36 | RAD ---
HISTORY: Abdominal pain, postop abdominal mass Study: KUB Comparison: CT abdomen pelvis 01/03/2019 Findings: Contrast is identified within the upper collecting system and ureters bilaterally which are mildly full down to the pelvic inlet. There is an ill-defined soft tissue mass rising out of the pelvis likely corresponding to the abnormality noted on the recent CT. Surgical sutures are present in the right mid abdomen. The abdomen is relatively gasless. IMPRESSION: Ill-defined soft tissue mass arising out of the pelvis corresponding to the finding noted on the recent CT Mild fullness of the visualized renal collecting systems and ureters with mild obstruction likely due to the previously noted mass. The source of the intravenous contrast visible is unclear Reported By:
--- NOTE | 2019-01-04 12:50 | CT ---
History: Abdominal pain and mass postop 10 days, bowel resection Study: CT abdomen and pelvis with 100 mL Omnipaque 350 IV contrast and with oral contrast. Sagittal and coronal reformations were provided. Dose reduction techniques were utilized. Comparison: Yesterday, exam without contrast Findings: There is a relatively well-defined fluid collection with a small air-fluid level in the midline of the pelvis measuring up to 12.5 cm maximum AP diameter and 7 cm heights and over 4 cm transverse diameter. There is a thickened enhancing wall. Small bowel is draped around it and sigmoid colon is to the left of this fluid collection. The urinary bladder is decompressed by Engel balloon catheter. There is a large amount of fluid in the colon. Small bowel is nondistended. There are nasty [place] sutures in mid small bowel. There are couple of small cysts in the liver. The spleen and pancreas and kidneys and adrenal glands are unremarkable. There are small bilateral pleural effusions and bibasilar subsegmental atelectasis and/or consolidation similar to yesterday's exam. Impression: Findings most suggestive of a large pelvic abscess. Unchanged bilateral small pleural effusions with bibasilar subsegmental atelectasis and/or consolidation Reported By:
--- NOTE | 2019-01-04 17:44 | DR.PROGNOT ---
Hospital Progress Notes - Progress Note for Day of: Progress Note Date: 01/04/19 - Chief Complaint Chief Complaint: feeling better today , no nausea or vomiting . tolerating diet well and having BM today . abdominal CT showed possible pelvic abscess . Pt is afebrile and having normal WBC. - Past Medical Family Social History Past Med/Fam/Surg Hx: No changes since H&P (h/o large distal gastric ulcer .) Allergies: Allergies Penicillins Allergy (Verified 12/14/18 05:11) - Review Of Systems ROS: No change since H&P - Vital Signs Vital Signs: Temperature 97.9 F Pulse Rate [Left Brachial] 94 Pulse Rate 98 Respiratory Rate 18 Blood Pressure [Right Arm] 136/65 Blood Pressure [Left Arm] 144/66 Blood Pressure 122/58 O2 Sat by Pulse Oximetry 96 - Physical Exam Oriented: Normal Eyes: Normal Ear: Normal Nose: Normal Throat: Normal Respiratory: Normal Cardiovascular: Normal : Normal GI:Auscultation: Normal GI:Palpation: Normal GI: Tenderness: Diffuse (generalized abdominal tenderness more of the lower abdomen , BS+ .clean incision )) Skin: Normal Musculoskeletal: Normal Speech Pattern: Clear, Appropriate - Laboratory and Diagnostics Result Diagrams: 01/04/19 05:10 01/04/19 05:10 Labs: Laboratory WBC 11.7 X10^3/uL (3.6-10.0) H 01/04/19 05:10 RBC 3.60 X10^6/uL (3.5-5.4) 01/04/19 05:10 Hgb 10.0 g/dL (12.0-16.0) L 01/04/19 05:10 Hct 30.3 % (36.0-47.0) L 01/04/19 05:10 MCV 84.2 fL (80.0-100.0) 01/04/19 05:10 MCH 27.9 pg (27.0-34.0) 01/04/19 05:10 MCHC 33.2 g/dL (33.0-35.0) 01/04/19 05:10 RDW 16.0 % (11.6-16.5) 01/04/19 05:10 Plt Count 360 X10^3/uL (150.0-450.0) 01/04/19 05:10 MPV 7.5 fL (7.4-11.0) 01/04/19 05:10 Neut % (Auto) 80.5 % (42.0-75.0) H 01/04/19 05:10 Lymph % (Auto) 9.1 % (21.0-51.0) L 01/04/19 05:10 [place] % (Auto) 9.7 % (0.0-13.0) 01/04/19 05:10 Eos % (Auto) 0.5 % (0.9-2.9) L 01/04/19 05:10 Baso % (Auto) 0.2 % (0.2-1.0) 01/04/19 05:10 Neut # (Auto) 9.5 x10^3/uL (2.2-4.8) H 01/04/19 05:10 Lymph # (Auto) 1.1 X10^3/uL (1.3-2.9) L 01/04/19 05:10 [place] # (Auto) 1.1 x10^3/uL (0.3-0.8) H 01/04/19 05:10 Eos # (Auto) 0.1 x10^3/uL (0.0-0.2) 01/04/19 05:10 Baso # (Auto) 0.0 X10^3/uL (0.0-0.1) 01/04/19 05:10 Absolute Nucleated RBC 0.0 /100WBC 01/04/19 05:10 Sodium 136 mmol/L (136-145) 01/04/19 05:10 Corrected Sodium TNP 01/04/19 05:10 Potassium 3.8 mmol/L (3.5-5.1) 01/04/19 05:10 Chloride 101 mmol/L (98-107) 01/04/19 05:10 Carbon Dioxide 26.7 mmol/L (21-32) 01/04/19 05:10 BUN 5 mg/dL (7-18) L 01/04/19 05:10 Creatinine 0.41 mg/dL (0.55-1.02) L 01/04/19 05:10 Est GFR (MDRD) Af Amer > 60 (>60) 01/04/19 05:10 Est GFR (MDRD) Non-Af > 60 (>60) 01/04/19 05:10 Glucose 103 mg/dL (65-99) H 01/04/19 05:10 Calcium 8.1 mg/dL (8.5-10.1) L 01/04/19 05:10 Corrected Calcium 9.4 mg/dL (8.5-10.1) 01/04/19 05:10 Magnesium 2.1 mg/dL (1.7-2.9) 01/04/19 05:10 Total Bilirubin 0.40 mg/dL (0.2-1.0) 01/04/19 05:10 AST 12 Units/L (15-37) L 01/04/19 05:10 ALT < 6 Units/L (12-78) L 01/04/19 05:10 Alkaline Phosphatase 65 Units/L (46-116) 01/04/19 05:10 Total Protein 5.9 g/dL (6.4-8.2) L 01/04/19 05:10 Albumin 2.4 g/dL (3.4-5.0) L 01/04/19 05:10 Globulin 3.5 g/dL (2.5-4.5) 01/04/19 05:10 Albumin/Globulin Ratio 0.7 Ratio (1.1-2.1) L 01/04/19 05:10 Amylase 23 Units/L (25-115) L 01/03/19 05:20 Lipase 39 Units/L (73-393) L 01/03/19 05:20 Specimen Type Catherized urine 01/03/19 02:30 Urine Color Yellow (YELLOW) 01/03/19 02:30 Urine Appearance Clear (CLEAR) 01/03/19 02:30 Urine pH 6.0 (5.0 - 8.0) 01/03/19 02:30 Ur Specific [place] 1.010 (1.000-1.030) 01/03/19 02:30 Urine Protein 2+ (NEGATIVE) 01/03/19 02:30 Urine Glucose (UA) Negative (NEGATIVE) 01/03/19 02:30 Urine Ketones 1+ (NEGATIVE) 01/03/19 02:30 Urine Occult Blood 5+ (NEGATIVE) 01/03/19 02:30 Urine Nitrite Negative (NEGATIVE) 01/03/19 02:30 Urine Bilirubin Negative (NEGATIVE) 01/03/19 02:30 Urine Urobilinogen Normal (NORMAL) 01/03/19 02:30 Ur Leukocyte Esterase 1+ (NEGATIVE) 01/03/19 02:30 Urine RBC 5-10 /HPF (NONE SEEN) 01/03/19 02:30 Urine WBC 0-2 /HPF (NONE SEEN) 01/03/19 02:30 Ur Squamous Epith Cells Rare /HPF (NEGATIVE) 01/03/19 02:30 Urine Bacteria Negative /HPF (NEGATIVE) 01/03/19 02:30 Ur Culture Indicated? No/not indicated 01/03/19 02:30 - Assessment and Plan 1: abdominal pain . lower abdominal and pelvic abscess . recent diverticulitis and abscess. s/p laparotomy , small bowel resection. gastric ulcer . on IV ATB ,IV Protonix and oral Carafate . will d/w the radiologist for per cutaneous drainage . - Problem Patient Problems: Patient Problems Hypokalemia (Acute) E87.6 Abdominal pain (Acute) R10.9 Abdominal mass (Acute) R19.00 Dehydration (Acute) E86.0
[2019-01-05] MEDS: NS + KCL 20 MEQ/L 1,000 ML IV SCH ×2 (01:05→06:33)
[2019-01-05] MEDS: DILAUDID INJ IVP PRN ×5 (01:05→21:52)
[2019-01-05] MEDS: FLAGYL IV PREMIX 500 MG BAG 500 MG/100 ML BAG IV SCH ×4 (03:44→21:48)
[2019-01-05 05:41] LABS: BASOPHILS % (AUTO) 0.3 % (0.2-1.0); EOSINOPHILS # (AUTO) 0.2 x10^3/uL (0.0-0.2); HEMATOCRIT 31.9 % (36.0-47.0); HEMOGLOBIN 10.7 g/dL (12.0-16.0); LYMPHOCYTES # (AUTO) 1.3 X10^3/uL (1.3-2.9); LYMPHOCYTES % (AUTO) 11.4 % (21.0-51.0); MEAN CORPUSCULAR HGB CONC 33.5 g/dL (33.0-35.0); MEAN CORPUSCULAR VOLUME 83.7 fL (80.0-100.0); MEAN PLATELET VOLUME 7.6 fL (7.4-11.0); MONOCYTES # (AUTO) 1.1 x10^3/uL (0.3-0.8); MONOCYTES % (AUTO) 9.5 % (0.0-13.0); NEUTROPHILS % (AUTO) 76.8 % (42.0-75.0); PLATELET COUNT 393 X10^3/uL (150.0-450.0); RED BLOOD COUNT 3.82 X10^6/uL (3.5-5.4); WHITE BLOOD COUNT 11.8 X10^3/uL (3.6-10.0)
[2019-01-05 05:59] LABS: ALANINE AMINOTRANSFERASE < 6 Units/L (12-78); ALBUMIN 2.5 g/dL (3.4-5.0); ALKALINE PHOSPHATASE 67 Units/L (46-116); ASPARTATE AMINO TRANSFERASE 14 Units/L (15-37); BLOOD UREA NITROGEN 3 mg/dL (7-18); CALCIUM 8.3 mg/dL (8.5-10.1); CARBON DIOXIDE 21.6 mmol/L (21-32); CHLORIDE 98 mmol/L (98-107); COR CA(FOR HYPOALB) 9.5 mg/dL (8.5-10.1); CREATININE 0.38 mg/dL (0.55-1.02); SODIUM 135 mmol/L (136-145); TOTAL PROTEIN 6.3 g/dL (6.4-8.2); eGFR NON BLACK RACES > 60 (>60)
[2019-01-05] MEDS: CARAFATE PO SCH ×4 (06:04→21:48)
[2019-01-05] MEDS: FORTAZ or TAZICEF VIAL INJ IVP SCH ×3 (06:04→22:06)
[2019-01-05] MEDS: LEVAQUIN PREMIX IV 500 MG 500 MG/100 ML BAG IV SCH (09:11)
[2019-01-05] MEDS: K-DUR TAB 20 MEQ PO PRN ×2 (09:11→09:12)
[2019-01-05] MEDS: CYMBALTA PO SCH (09:12)
[2019-01-05] MEDS: LOVENOX INJ 30 MG SYR SC SCH (09:14)
[2019-01-05] MEDS: NADOLOL 10 MG PO SCH (09:15)
[2019-01-05] MEDS ORDERED: XYLOCAINE 1 % (PLAIN) ONE (14:17)
[2019-01-05] MEDS ORDERED: NS 1000 ML 1,000 ML ONE (14:35)
[2019-01-05] MEDS ORDERED: NS 100 ML IV 200 ML ONE (15:09)
[2019-01-05] MEDS ORDERED: VERSED ONE (15:28)
[2019-01-05] MEDS ORDERED: DIPRIVAN VIAL ONE (15:28)
--- NOTE | 2019-01-05 17:42 | PCM.PROG ---
Progress Note - Progress Note for Day of Date of Exam: 01/04/19 - Subjective Subjective: IS A READMISSION DUE TO SEVERE ABDOMINAL PAIN, SEVERE WEAKNESS, AND DECREASED APPETITE FOLLOWING RECENT DRAINAGE OF PELVIC ABSCESS, LYSIS OF EXTENSIVE ABDOMINAL ADHESIONS, AND TREATMENT FOR A PARTIAL SMALL BOWEL RESECTION X 2 WITH END TO END ANASTOMOSIS. TODAY, SHE IS ALERT AND ORIENTED, LYING IN BED ON MORNING ROUNDS. SHE CONTINUE WITH COMPLAINTS OF ABDOMINAL PAIN AND WEAKNESS. ON EXAMINATION, HEART IS REGULAR IN RATE AND RHYTHM. BILATERAL LUNGS ARE NOTED WITH DIMINISHED LUNG SOUNDS THROUGHOUT. ABDOMEN IS DISTENDED AND NOTED WITH DIFFUSE TENDERNESS. HYPOACTIVE BOWEL SOUNDS NOTED. HER VITALS THIS MORNING ARE: 98.4-92-18-93%-124/61. LABS WERE OBTAINED. ABNORMAL LAB VALUES INC LU[place] THE FOLLOWING: WBC 11.7, HGB 10.0, HCT 30.3, BUN 5, CRAETININE 0.41, GLUCOSE 103, CALCIUM 8.1, AST 12, ALT <6, TOTAL PROTEIN 5.9, ALBUMIN 2.4. SHE IS SCHEDULED FOR AN ABDOMEN/PELVIS CT WITH CONTRAST THIS MORNING. SHE IS CURRENTLY RECEIVING IV LEVAQUIN, IV FORTAZ, NORMAL SALINE WITH 20MEQ KCL AT 125ML/HR, DILAUDID FOR PAIN CONTROL, AND PHENERGAN 12.5MG IM Q6H PRN NAUSEA. WE WILL CONTINUE WITH CURRENT PLAN OF CARE TODAY. WILL CONTINUE TO MONITOR WELL. OTHERWISE, WE PLAN TO FOLLOW UP WITH AM LABS AND CONTINUE TO MONITOR. - Past Medical Family Social History Past Med/Fam/Surg Hx: No changes since H&P (h/o large distal gastric ulcer .) Allergies: Allergies Penicillins Allergy (Verified 12/14/18 05:11) - Review of Systems ROS: No change since H&P - Vital Signs and I&O's Vital Signs: Temperature 99.3 F Pulse Rate [Left Brachial] 92 Pulse Rate 98 Respiratory Rate 18 Blood Pressure [Right Arm] 131/65 Blood Pressure [Left Arm] 144/66 Blood Pressure 122/58 O2 Sat by Pulse Oximetry 94 Intake and Output: Intake & Output 01/03/19 01/04/19 01/05/19 01/06/19 11:59 11:59 11:59 11:59 Intake Total 2382 / 2382 1680 / 1680 240 / 240 Output Total 3050 / 3050 4875 / 4875 Balance -668 / -668 -3195 / -3195 240 / 240 - Physical Exam Oriented: Normal Eyes: Normal Ear: Normal Nose: Normal Throat: Normal Respiratory: Normal Cardiovascular: Normal : Normal Auscultation: Bowel Sounds: Decreased Palpation: Normal Tenderness: Diffuse (generalized abdominal tenderness more of the lower abdomen , BS+ .clean incision )), Moderate Skin: Normal Musculoskeletal: Normal Psychiatric: Normal Mood Description: Calm Speech Pattern: Clear, Appropriate - Laboratory and Diagnostics Result Diagrams: 01/05/19 05:05 01/05/19 13:03 Labs: Laboratory WBC 11.8 X10^3/uL (3.6-10.0) H 01/05/19 05:05 RBC 3.82 X10^6/uL (3.5-5.4) 01/05/19 05:05 Hgb 10.7 g/dL (12.0-16.0) L 01/05/19 05:05 Hct 31.9 % (36.0-47.0) L 01/05/19 05:05 MCV 83.7 fL (80.0-100.0) 01/05/19 05:05 MCH 28.0 pg (27.0-34.0) 01/05/19 05:05 MCHC 33.5 g/dL (33.0-35.0) 01/05/19 05:05 RDW 16.0 % (11.6-16.5) 01/05/19 05:05 Plt Count 393 X10^3/uL (150.0-450.0) 01/05/19 05:05 MPV 7.6 fL (7.4-11.0) 01/05/19 05:05 Neut % (Auto) 76.8 % (42.0-75.0) H 01/05/19 05:05 Lymph % (Auto) 11.4 % (21.0-51.0) L 01/05/19 05:05 [place] % (Auto) 9.5 % (0.0-13.0) 01/05/19 05:05 Eos % (Auto) 2.0 % (0.9-2.9) 01/05/19 05:05 Baso % (Auto) 0.3 % (0.2-1.0) 01/05/19 05:05 Neut # (Auto) 9.0 x10^3/uL (2.2-4.8) H 01/05/19 05:05 Lymph # (Auto) 1.3 X10^3/uL (1.3-2.9) 01/05/19 05:05 [place] # (Auto) 1.1 x10^3/uL (0.3-0.8) H 01/05/19 05:05 Eos # (Auto) 0.2 x10^3/uL (0.0-0.2) 01/05/19 05:05 Baso # (Auto) 0.0 X10^3/uL (0.0-0.1) 01/05/19 05:05 Absolute Nucleated RBC 0.0 /100WBC 01/05/19 05:05 PT 15.8 SECONDS (11.8-14.3) 01/05/19 05:05 INR Target Range - 01/05/19 05:05 INR 1.31 (0.8-1.3) H 01/05/19 05:05 Sodium 135 mmol/L (136-145) L 01/05/19 05:05 Corrected Sodium TNP 01/05/19 05:05 Potassium 3.6 mmol/L (3.5-5.1) 01/05/19 13:03 Chloride 98 mmol/L (98-107) 01/05/19 05:05 Carbon Dioxide 21.6 mmol/L (21-32) 01/05/19 05:05 BUN 3 mg/dL (7-18) L 01/05/19 05:05 Creatinine 0.38 mg/dL (0.55-1.02) L 01/05/19 05:05 Est GFR (MDRD) Af Amer > 60 (>60) 01/05/19 05:05 Est GFR (MDRD) Non-Af > 60 (>60) 01/05/19 05:05 Glucose 83 mg/dL (65-99) 01/05/19 05:05 Calcium 8.3 mg/dL (8.5-10.1) L 01/05/19 05:05 Corrected Calcium 9.5 mg/dL (8.5-10.1) 01/05/19 05:05 Magnesium 2.1 mg/dL (1.7-2.9) 01/04/19 05:10 Total Bilirubin 0.50 mg/dL (0.2-1.0) 01/05/19 05:05 AST 14 Units/L (15-37) L 01/05/19 05:05 ALT < 6 Units/L (12-78) L 01/05/19 05:05 Alkaline Phosphatase 67 Units/L (46-116) 01/05/19 05:05 Total Protein 6.3 g/dL (6.4-8.2) L 01/05/19 05:05 Albumin 2.5 g/dL (3.4-5.0) L 01/05/19 05:05 Globulin 3.8 g/dL (2.5-4.5) 01/05/19 05:05 Albumin/Globulin Ratio 0.7 Ratio (1.1-2.1) L 01/05/19 05:05 Amylase 23 Units/L (25-115) L 01/03/19 05:20 Lipase 39 Units/L (73-393) L 01/03/19 05:20 Specimen Type Catherized urine 01/03/19 02:30 Urine Color Yellow (YELLOW) 01/03/19 02:30 Urine Appearance Clear (CLEAR) 01/03/19 02:30 Urine pH 6.0 (5.0 - 8.0) 01/03/19 02:30 Ur Specific [place] 1.010 (1.000-1.030) 01/03/19 02:30 Urine Protein 2+ (NEGATIVE) 01/03/19 02:30 Urine Glucose (UA) Negative (NEGATIVE) 01/03/19 02:30 Urine Ketones 1+ (NEGATIVE) 01/03/19 02:30 Urine Occult Blood 5+ (NEGATIVE) 01/03/19 02:30 Urine Nitrite Negative (NEGATIVE) 01/03/19 02:30 Urine Bilirubin Negative (NEGATIVE) 01/03/19 02:30 Urine Urobilinogen Normal (NORMAL) 01/03/19 02:30 Ur Leukocyte Esterase 1+ (NEGATIVE) 01/03/19 02:30 Urine RBC 5-10 /HPF (NONE SEEN) 01/03/19 02:30 Urine WBC 0-2 /HPF (NONE SEEN) 01/03/19 02:30 Ur Squamous Epith Cells Rare /HPF (NEGATIVE) 01/03/19 02:30 Urine Bacteria Negative /HPF (NEGATIVE) 01/03/19 02:30 Ur Culture Indicated? No/not indicated 01/03/19 02:30 - Plan (1) Abdominal abscess Status: Acute Plan: IV ANTIBIOTICS, OBTAIN ABDOMEN/PELVIS CT WITH CONTRAST, CONSULT GENERAL SURGERY, CONTINUE TO MONITOR (2) Abdominal pain Status: Acute Qualifiers: Abdominal location: generalized Qualified Code(s): R10.84 - Generalized abdominal pain Plan: IV ANTIBIOTICS, OBTAIN ABDOMEN/PELVIS CT WITH CONTRAST, CONSULT GENERAL SURGERY, CONTINUE TO MONITOR (3) Status post intestinal bypass or anastomosis Status: Acute (4) Hypokalemia Status: Acute Plan: NORMAL SALINE WITH 20MEQ KCL AT 125ML/HR, POTASSIUM REPLACEMENT PER PROTOCOL (5) Dehydration Status: Acute Plan: NORMAL SALINE WITH 20MEQ KCL AT 125ML/HR
--- NOTE | 2019-01-05 22:03 | DR.PROGNOT ---
Hospital Progress Notes - Progress Note for Day of: Progress Note Date: 01/05/19 - Chief Complaint Chief Complaint: percutaneous drainage of the pelvic abscess was done with CT guidance . about 300 cc was drained . Pt did well and feeling better . - Past Medical Family Social History Past Med/Fam/Surg Hx: No changes since H&P (h/o large distal gastric ulcer .) Allergies: Allergies Penicillins Allergy (Verified 12/14/18 05:11) - Review Of Systems ROS: No change since H&P - Vital Signs Vital Signs: Temperature 97.5 F Pulse Rate [Left Brachial] 108 Pulse Rate 98 Respiratory Rate 20 Blood Pressure [Right Arm] 121/77 Blood Pressure [Left Arm] 144/66 Blood Pressure 122/58 O2 Sat by Pulse Oximetry 96 - Physical Exam Oriented: Normal Eyes: Normal Ear: Normal Nose: Normal Throat: Normal Respiratory: Normal Cardiovascular: Normal : Normal GI:Auscultation: Decreased GI:Palpation: Normal GI: Tenderness: Moderate, Severe (soft abdomen with lower abdominal tenderness . BS+), Other Skin: Normal Musculoskeletal: Normal Psychiatric: Normal Mood Description: Calm Speech Pattern: Clear, Appropriate - Laboratory and Diagnostics Result Diagrams: 01/05/19 05:05 01/05/19 13:03 Labs: 01/05/19 15:02 Peritoneal Fluid Gram Stain - Final Laboratory WBC 11.8 X10^3/uL (3.6-10.0) H 01/05/19 05:05 RBC 3.82 X10^6/uL (3.5-5.4) 01/05/19 05:05 Hgb 10.7 g/dL (12.0-16.0) L 01/05/19 05:05 Hct 31.9 % (36.0-47.0) L 01/05/19 05:05 MCV 83.7 fL (80.0-100.0) 01/05/19 05:05 MCH 28.0 pg (27.0-34.0) 01/05/19 05:05 MCHC 33.5 g/dL (33.0-35.0) 01/05/19 05:05 RDW 16.0 % (11.6-16.5) 01/05/19 05:05 Plt Count 393 X10^3/uL (150.0-450.0) 01/05/19 05:05 MPV 7.6 fL (7.4-11.0) 01/05/19 05:05 Neut % (Auto) 76.8 % (42.0-75.0) H 01/05/19 05:05 Lymph % (Auto) 11.4 % (21.0-51.0) L 01/05/19 05:05 [place] % (Auto) 9.5 % (0.0-13.0) 01/05/19 05:05 Eos % (Auto) 2.0 % (0.9-2.9) 01/05/19 05:05 Baso % (Auto) 0.3 % (0.2-1.0) 01/05/19 05:05 Neut # (Auto) 9.0 x10^3/uL (2.2-4.8) H 01/05/19 05:05 Lymph # (Auto) 1.3 X10^3/uL (1.3-2.9) 01/05/19 05:05 [place] # (Auto) 1.1 x10^3/uL (0.3-0.8) H 01/05/19 05:05 Eos # (Auto) 0.2 x10^3/uL (0.0-0.2) 01/05/19 05:05 Baso # (Auto) 0.0 X10^3/uL (0.0-0.1) 01/05/19 05:05 Absolute Nucleated RBC 0.0 /100WBC 01/05/19 05:05 PT 15.8 SECONDS (11.8-14.3) 01/05/19 05:05 INR Target Range - 01/05/19 05:05 INR 1.31 (0.8-1.3) H 01/05/19 05:05 Sodium 135 mmol/L (136-145) L 01/05/19 05:05 Corrected Sodium TNP 01/05/19 05:05 Potassium 3.6 mmol/L (3.5-5.1) 01/05/19 13:03 Chloride 98 mmol/L (98-107) 01/05/19 05:05 Carbon Dioxide 21.6 mmol/L (21-32) 01/05/19 05:05 BUN 3 mg/dL (7-18) L 01/05/19 05:05 Creatinine 0.38 mg/dL (0.55-1.02) L 01/05/19 05:05 Est GFR (MDRD) Af Amer > 60 (>60) 01/05/19 05:05 Est GFR (MDRD) Non-Af > 60 (>60) 01/05/19 05:05 Glucose 83 mg/dL (65-99) 01/05/19 05:05 Calcium 8.3 mg/dL (8.5-10.1) L 01/05/19 05:05 Corrected Calcium 9.5 mg/dL (8.5-10.1) 01/05/19 05:05 Magnesium 2.1 mg/dL (1.7-2.9) 01/04/19 05:10 Total Bilirubin 0.50 mg/dL (0.2-1.0) 01/05/19 05:05 AST 14 Units/L (15-37) L 01/05/19 05:05 ALT < 6 Units/L (12-78) L 01/05/19 05:05 Alkaline Phosphatase 67 Units/L (46-116) 01/05/19 05:05 Total Protein 6.3 g/dL (6.4-8.2) L 01/05/19 05:05 Albumin 2.5 g/dL (3.4-5.0) L 01/05/19 05:05 Globulin 3.8 g/dL (2.5-4.5) 01/05/19 05:05 Albumin/Globulin Ratio 0.7 Ratio (1.1-2.1) L 01/05/19 05:05 Amylase 23 Units/L (25-115) L 01/03/19 05:20 Lipase 39 Units/L (73-393) L 01/03/19 05:20 Specimen Type Catherized urine 01/03/19 02:30 Urine Color Yellow (YELLOW) 01/03/19 02:30 Urine Appearance Clear (CLEAR) 01/03/19 02:30 Urine pH 6.0 (5.0 - 8.0) 01/03/19 02:30 Ur Specific [place] 1.010 (1.000-1.030) 01/03/19 02:30 Urine Protein 2+ (NEGATIVE) 01/03/19 02:30 Urine Glucose (UA) Negative (NEGATIVE) 01/03/19 02:30 Urine Ketones 1+ (NEGATIVE) 01/03/19 02:30 Urine Occult Blood 5+ (NEGATIVE) 01/03/19 02:30 Urine Nitrite Negative (NEGATIVE) 01/03/19 02:30 Urine Bilirubin Negative (NEGATIVE) 01/03/19 02:30 Urine Urobilinogen Normal (NORMAL) 01/03/19 02:30 Ur Leukocyte Esterase 1+ (NEGATIVE) 01/03/19 02:30 Urine RBC 5-10 /HPF (NONE SEEN) 01/03/19 02:30 Urine WBC 0-2 /HPF (NONE SEEN) 01/03/19 02:30 Ur Squamous Epith Cells Rare /HPF (NEGATIVE) 01/03/19 02:30 Urine Bacteria Negative /HPF (NEGATIVE) 01/03/19 02:30 Ur Culture Indicated? No/not indicated 01/03/19 02:30 Cytology Specimen To follow 01/05/19 15:02 - Assessment and Plan 1: s/p drainage of pelvic abscess . s/p laparotomy , small bowel resection. gastric ulcer . on IV ATB ,IV Protonix and oral Carafate . will keep the drain for now . - Problem Patient Problems: Patient Problems Hypokalemia (Acute) E87.6 Abdominal pain (Acute) R10.9 Abdominal mass (Acute) R19.00 Dehydration (Acute) E86.0 Status post intestinal bypass or anastomosis (Acute) Z98.0 Abdominal abscess (Acute) Abdominal pain (Acute) R10.9
[2019-01-06] MEDS: NS + KCL 20 MEQ/L 1,000 ML IV SCH ×2 (01:37→14:47)
[2019-01-06] MEDS: FLAGYL IV PREMIX 500 MG BAG 500 MG/100 ML BAG IV SCH ×4 (03:09→20:21)
[2019-01-06] MEDS: DILAUDID INJ IVP PRN ×2 (03:51→14:43)
[2019-01-06 05:03] LABS: BASOPHILS % (AUTO) 0.3 % (0.2-1.0); EOSINOPHILS # (AUTO) 0.1 x10^3/uL (0.0-0.2); EOSINOPHILS % (AUTO) 0.5 % (0.9-2.9); HEMATOCRIT 31.9 % (36.0-47.0); HEMOGLOBIN 10.7 g/dL (12.0-16.0); LYMPHOCYTES # (AUTO) 1.2 X10^3/uL (1.3-2.9); LYMPHOCYTES % (AUTO) 9.3 % (21.0-51.0); MEAN CORPUSCULAR HEMOGLOBIN 27.9 pg (27.0-34.0); MEAN CORPUSCULAR HGB CONC 33.4 g/dL (33.0-35.0); MEAN CORPUSCULAR VOLUME 83.7 fL (80.0-100.0); MEAN PLATELET VOLUME 7.2 fL (7.4-11.0); MONOCYTES # (AUTO) 0.9 x10^3/uL (0.3-0.8); MONOCYTES % (AUTO) 6.9 % (0.0-13.0); NEUTROPHILS # (AUTO) 10.7 x10^3/uL (2.2-4.8); PLATELET COUNT 437 X10^3/uL (150.0-450.0); RED BLOOD COUNT 3.82 X10^6/uL (3.5-5.4); RED CELL DISTRIBUTION WIDTH 16.2 % (11.6-16.5); WHITE BLOOD COUNT 12.9 X10^3/uL (3.6-10.0)
[2019-01-06 05:16] LABS: ALANINE AMINOTRANSFERASE < 6 Units/L (12-78); ALBUMIN 2.5 g/dL (3.4-5.0); ALKALINE PHOSPHATASE 60 Units/L (46-116); ASPARTATE AMINO TRANSFERASE 11 Units/L (15-37); BLOOD UREA NITROGEN 3 mg/dL (7-18); CALCIUM 8.4 mg/dL (8.5-10.1); CARBON DIOXIDE 20.1 mmol/L (21-32); CHLORIDE 97 mmol/L (98-107); COR CA(FOR HYPOALB) 9.6 mg/dL (8.5-10.1); CREATININE 0.43 mg/dL (0.55-1.02); SODIUM 133 mmol/L (136-145); TOTAL PROTEIN 6.1 g/dL (6.4-8.2); eGFR NON BLACK RACES > 60 (>60)
[2019-01-06] MEDS: FORTAZ or TAZICEF VIAL INJ IVP SCH ×3 (06:25→22:04)
[2019-01-06] MEDS: CARAFATE PO SCH ×4 (06:25→20:21)
[2019-01-06] MEDS: KLOR-CON PO PRN (06:26)
--- NOTE | 2019-01-06 06:28 | CT ---
HISTORY: Abscess post recent bowel reconstruction Study: CT-guided abscess drain Comparison: January 03, 2019 and January 04, 2019 Procedure: The risks, benefits, and alternatives were discussed. Informed consent was obtained. Time out was performed. Conscious sedation was performed via the [employer] HEL[employer]. CT guidance was utilized to localize optimal percutaneous drainage site utilizing a right transgluteal approach. The patient was prepped, draped, and locally anesthetized with approximately 15 cc of 1% lidocaine. Subsequently, a 5 [place] catheter was advanced into the region of interest with approximately 5 cc of purulent material aspirated. Five [place] catheter was initially repositioned more medially in the center of the region of interest as initial attempt was along the lateral right pelvic sidewall. Subsequently, an 8 [place] dilator and 10 [place] pigtail catheter were advanced over a wire with approximately 350 cc of purulent material again aspirated. The catheter and abscess were flushed and aspirated with approximately 25 cc of sterile normal saline. Postprocedure imaging demonstrated near complete collapse of the larger left-sided pelvic abscess with remaining fluid collection along the course of the catheter in the right pelvis. Catheter could be slowly withdrawn over 3-5 days by proximally 5 cm if drainage ceases to center the side ports within the smaller right-sided collection, but it is likely that the right-sided fluid will drain dependently at along the path of least resistance into the coiled and perforated portion of the catheter just to the left of midline. Catheter is to be flushed t.i.d. with 5-10 cc of normal saline as well. The specimen was sent to pathology for Gram stain with culture and sensitivity. IMPRESSION: Technically successful CT-guided abscess drain. Reported By:
[2019-01-06] MEDS: NADOLOL 10 MG PO SCH (08:43)
[2019-01-06] MEDS: LOVENOX INJ 30 MG SYR SC SCH (08:43)
[2019-01-06] MEDS: LEVAQUIN PREMIX IV 500 MG 500 MG/100 ML BAG IV SCH (08:43)
[2019-01-06] MEDS: CYMBALTA PO SCH (08:51)
--- NOTE | 2019-01-06 16:50 | DR.PROGNOT ---
Hospital Progress Notes - Progress Note for Day of: Progress Note Date: 01/06/19 - Chief Complaint Chief Complaint: still having moderate amount of drainage in the drainage bag . abdominal pain is better . no vomiting today . WBC 12 .LFT normal . - Past Medical Family Social History Past Med/Fam/Surg Hx: No changes since H&P (h/o large distal gastric ulcer .) Allergies: Allergies Penicillins Allergy (Verified 12/14/18 05:11) - Review Of Systems ROS: No change since H&P - Vital Signs Vital Signs: Temperature 98.7 F Pulse Rate [Left Brachial] 90 Pulse Rate 98 Respiratory Rate 20 Blood Pressure [Right Arm] 129/67 Blood Pressure [Left Arm] 138/65 Blood Pressure 122/58 O2 Sat by Pulse Oximetry 96 - Physical Exam Oriented: Normal Eyes: Normal Ear: Normal Nose: Normal Throat: Normal Respiratory: Normal Cardiovascular: Normal : Normal GI:Auscultation: Decreased GI:Palpation: Normal GI: Tenderness: Moderate, Other (lower abdominal tenderness , BS+) Skin: Normal Musculoskeletal: Normal Psychiatric: Normal Mood Description: Calm Speech Pattern: Clear, Appropriate - Laboratory and Diagnostics Result Diagrams: 01/06/19 04:48 01/06/19 04:48 Labs: 01/05/19 15:02 Peritoneal Fluid Gram Stain - Final 01/05/19 15:02 Peritoneal Fluid - Preliminary Laboratory WBC 12.9 X10^3/uL (3.6-10.0) H 01/06/19 04:48 RBC 3.82 X10^6/uL (3.5-5.4) 01/06/19 04:48 Hgb 10.7 g/dL (12.0-16.0) L 01/06/19 04:48 Hct 31.9 % (36.0-47.0) L 01/06/19 04:48 MCV 83.7 fL (80.0-100.0) 01/06/19 04:48 MCH 27.9 pg (27.0-34.0) 01/06/19 04:48 MCHC 33.4 g/dL (33.0-35.0) 01/06/19 04:48 RDW 16.2 % (11.6-16.5) 01/06/19 04:48 Plt Count 437 X10^3/uL (150.0-450.0) 01/06/19 04:48 MPV 7.2 fL (7.4-11.0) L 01/06/19 04:48 Neut % (Auto) 83.0 % (42.0-75.0) H 01/06/19 04:48 Lymph % (Auto) 9.3 % (21.0-51.0) L 01/06/19 04:48 [place] % (Auto) 6.9 % (0.0-13.0) 01/06/19 04:48 Eos % (Auto) 0.5 % (0.9-2.9) L 01/06/19 04:48 Baso % (Auto) 0.3 % (0.2-1.0) 01/06/19 04:48 Neut # (Auto) 10.7 x10^3/uL (2.2-4.8) H 01/06/19 04:48 Lymph # (Auto) 1.2 X10^3/uL (1.3-2.9) L 01/06/19 04:48 [place] # (Auto) 0.9 x10^3/uL (0.3-0.8) H 01/06/19 04:48 Eos # (Auto) 0.1 x10^3/uL (0.0-0.2) 01/06/19 04:48 Baso # (Auto) 0.0 X10^3/uL (0.0-0.1) 01/06/19 04:48 Absolute Nucleated RBC 0.0 /100WBC 01/06/19 04:48 PT 15.8 SECONDS (11.8-14.3) 01/05/19 05:05 INR Target Range - 01/05/19 05:05 INR 1.31 (0.8-1.3) H 01/05/19 05:05 Sodium 133 mmol/L (136-145) L 01/06/19 04:48 Corrected Sodium TNP 01/06/19 04:48 Potassium 3.3 mmol/L (3.5-5.1) L 01/06/19 04:48 Chloride 97 mmol/L (98-107) L 01/06/19 04:48 Carbon Dioxide 20.1 mmol/L (21-32) L 01/06/19 04:48 BUN 3 mg/dL (7-18) L 01/06/19 04:48 Creatinine 0.43 mg/dL (0.55-1.02) L 01/06/19 04:48 Est GFR (MDRD) Af Amer > 60 (>60) 01/06/19 04:48 Est GFR (MDRD) Non-Af > 60 (>60) 01/06/19 04:48 Glucose 96 mg/dL (65-99) 01/06/19 04:48 Calcium 8.4 mg/dL (8.5-10.1) L 01/06/19 04:48 Corrected Calcium 9.6 mg/dL (8.5-10.1) 01/06/19 04:48 Magnesium 2.1 mg/dL (1.7-2.9) 01/04/19 05:10 Total Bilirubin 0.60 mg/dL (0.2-1.0) 01/06/19 04:48 AST 11 Units/L (15-37) L 01/06/19 04:48 ALT < 6 Units/L (12-78) L 01/06/19 04:48 Alkaline Phosphatase 60 Units/L (46-116) 01/06/19 04:48 Total Protein 6.1 g/dL (6.4-8.2) L 01/06/19 04:48 Albumin 2.5 g/dL (3.4-5.0) L 01/06/19 04:48 Globulin 3.6 g/dL (2.5-4.5) 01/06/19 04:48 Albumin/Globulin Ratio 0.7 Ratio (1.1-2.1) L 01/06/19 04:48 Amylase 23 Units/L (25-115) L 01/03/19 05:20 Lipase 39 Units/L (73-393) L 01/03/19 05:20 Specimen Type Catherized urine 01/03/19 02:30 Urine Color Yellow (YELLOW) 01/03/19 02:30 Urine Appearance Clear (CLEAR) 01/03/19 02:30 Urine pH 6.0 (5.0 - 8.0) 01/03/19 02:30 Ur Specific [place] 1.010 (1.000-1.030) 01/03/19 02:30 Urine Protein 2+ (NEGATIVE) 01/03/19 02:30 Urine Glucose (UA) Negative (NEGATIVE) 01/03/19 02:30 Urine Ketones 1+ (NEGATIVE) 01/03/19 02:30 Urine Occult Blood 5+ (NEGATIVE) 01/03/19 02:30 Urine Nitrite Negative (NEGATIVE) 01/03/19 02:30 Urine Bilirubin Negative (NEGATIVE) 01/03/19 02:30 Urine Urobilinogen Normal (NORMAL) 01/03/19 02:30 Ur Leukocyte Esterase 1+ (NEGATIVE) 01/03/19 02:30 Urine RBC 5-10 /HPF (NONE SEEN) 01/03/19 02:30 Urine WBC 0-2 /HPF (NONE SEEN) 01/03/19 02:30 Ur Squamous Epith Cells Rare /HPF (NEGATIVE) 01/03/19 02:30 Urine Bacteria Negative /HPF (NEGATIVE) 01/03/19 02:30 Ur Culture Indicated? No/not indicated 01/03/19 02:30 Cytology Specimen To follow 01/05/19 15:02 - Assessment and Plan 1: s/p drainage of pelvic abscess .(diverticular abscess ). s/p laparotomy , sm all bowel resection. gastric ulcer . on IV ATB ,IV Protonix and oral Carafate . will keep the drain for now . same IVF and ATB - Problem Patient Problems: Patient Problems Hypokalemia (Acute) E87.6 Abdominal pain (Acute) R10.9 Abdominal mass (Acute) R19.00 Dehydration (Acute) E86.0 Status post intestinal bypass or anastomosis (Acute) Z98.0 Abdominal abscess (Acute) Abdominal pain (Acute) R10.9
[2019-01-07] MEDS: NS + KCL 20 MEQ/L 1,000 ML IV SCH ×3 (00:40→21:08)
[2019-01-07] MEDS: DILAUDID INJ IVP PRN ×4 (00:42→18:59)
[2019-01-07] MEDS ORDERED: TORADOL 30 MG VIAL IVP ONE (00:50)
[2019-01-07] MEDS: FLAGYL IV PREMIX 500 MG BAG 500 MG/100 ML BAG IV SCH ×4 (03:05→21:08)
[2019-01-07 05:18] LABS: BASOPHILS # (AUTO) 0.1 X10^3/uL (0.0-0.1); BASOPHILS % (AUTO) 0.5 % (0.2-1.0); EOSINOPHILS # (AUTO) 0.1 x10^3/uL (0.0-0.2); EOSINOPHILS % (AUTO) 0.7 % (0.9-2.9); HEMATOCRIT 31.1 % (36.0-47.0); HEMOGLOBIN 10.4 g/dL (12.0-16.0); LYMPHOCYTES # (AUTO) 1.5 X10^3/uL (1.3-2.9); LYMPHOCYTES % (AUTO) 12.9 % (21.0-51.0); MEAN CORPUSCULAR HGB CONC 33.6 g/dL (33.0-35.0); MEAN CORPUSCULAR VOLUME 83.4 fL (80.0-100.0); MEAN PLATELET VOLUME 7.3 fL (7.4-11.0); MONOCYTES % (AUTO) 8.7 % (0.0-13.0); NEUTROPHILS # (AUTO) 8.9 x10^3/uL (2.2-4.8); NEUTROPHILS % (AUTO) 77.2 % (42.0-75.0); PLATELET COUNT 386 X10^3/uL (150.0-450.0); RED BLOOD COUNT 3.73 X10^6/uL (3.5-5.4); RED CELL DISTRIBUTION WIDTH 16.3 % (11.6-16.5); WHITE BLOOD COUNT 11.5 X10^3/uL (3.6-10.0)
[2019-01-07 05:30] LABS: ALANINE AMINOTRANSFERASE < 6 Units/L (12-78); ALBUMIN 2.3 g/dL (3.4-5.0); ALKALINE PHOSPHATASE 61 Units/L (46-116); ASPARTATE AMINO TRANSFERASE 9 Units/L (15-37); BLOOD UREA NITROGEN 2 mg/dL (7-18); CALCIUM 8.2 mg/dL (8.5-10.1); CARBON DIOXIDE 24.2 mmol/L (21-32); CHLORIDE 98 mmol/L (98-107); COR CA(FOR HYPOALB) 9.6 mg/dL (8.5-10.1); COR NA(FOR HYPERGLY) 134 mmol/L (136-145); SODIUM 134 mmol/L (136-145); TOTAL PROTEIN 5.8 g/dL (6.4-8.2); eGFR NON BLACK RACES > 60 (>60)
[2019-01-07] MEDS: FORTAZ or TAZICEF VIAL INJ IVP SCH ×3 (06:28→21:08)
[2019-01-07] MEDS: CARAFATE PO SCH ×4 (06:28→21:08)
[2019-01-07] MEDS: KLOR-CON PO PRN (06:28)
[2019-01-07] MEDS: PHENERGAN INJ 25 MG IM PRN ×2 (07:39→19:00)
[2019-01-07] MEDS: CYMBALTA PO SCH (09:03)
[2019-01-07] MEDS: LOVENOX INJ 30 MG SYR SC SCH (09:03)
[2019-01-07] MEDS: LEVAQUIN PREMIX IV 500 MG 500 MG/100 ML BAG IV SCH (09:04)
[2019-01-07] MEDS: NADOLOL 10 MG PO SCH (09:09)
[2019-01-07] MEDS: MAGNESIUM SULFATE 1 GRAM/100 mL PREMIX 1 GM/100 ML BAG IV PRN ×2 (11:25→12:30)
--- NOTE | 2019-01-07 13:05 | DR.PROGNOT ---
Hospital Progress Notes - Progress Note for Day of: Progress Note Date: 01/07/19 - Chief Complaint Chief Complaint: still having moderate amount of drainage in the drainage bag .(C&S is pending ). moderate abdominal pain. no nausea or vomiting . - Past Medical Family Social History Past Med/Fam/Surg Hx: No changes since H&P (h/o large distal gastric ulcer .) Allergies: Allergies Penicillins Allergy (Verified 12/14/18 05:11) - Review Of Systems ROS: No change since H&P - Vital Signs Vital Signs: Temperature 97.6 F Pulse Rate [Left Brachial] 95 Pulse Rate 93 Respiratory Rate 20 Blood Pressure [Right Arm] 123/64 Blood Pressure [Left Arm] 124/70 Blood Pressure 122/58 O2 Sat by Pulse Oximetry 97 - Physical Exam Oriented: Normal Eyes: Normal Ear: Normal Nose: Normal Throat: Normal Respiratory: Normal Cardiovascular: Normal : Normal GI:Auscultation: Decreased GI:Palpation: Normal GI: Tenderness: Moderate, Other (lower abdominal tenderness , BS+) Skin: Normal Musculoskeletal: Normal Psychiatric: Normal Mood Description: Calm Speech Pattern: Clear, Appropriate - Laboratory and Diagnostics Result Diagrams: 01/07/19 04:18 01/07/19 04:18 Labs: 01/05/19 15:02 Peritoneal Fluid Gram Stain - Final 01/05/19 15:02 Peritoneal Fluid - Preliminary Laboratory WBC 11.5 X10^3/uL (3.6-10.0) H 01/07/19 04:18 RBC 3.73 X10^6/uL (3.5-5.4) 01/07/19 04:18 Hgb 10.4 g/dL (12.0-16.0) L 01/07/19 04:18 Hct 31.1 % (36.0-47.0) L 01/07/19 04:18 MCV 83.4 fL (80.0-100.0) 01/07/19 04:18 MCH 28.0 pg (27.0-34.0) 01/07/19 04:18 MCHC 33.6 g/dL (33.0-35.0) 01/07/19 04:18 RDW 16.3 % (11.6-16.5) 01/07/19 04:18 Plt Count 386 X10^3/uL (150.0-450.0) 01/07/19 04:18 MPV 7.3 fL (7.4-11.0) L 01/07/19 04:18 Neut % (Auto) 77.2 % (42.0-75.0) H 01/07/19 04:18 Lymph % (Auto) 12.9 % (21.0-51.0) L 01/07/19 04:18 [place] % (Auto) 8.7 % (0.0-13.0) 01/07/19 04:18 Eos % (Auto) 0.7 % (0.9-2.9) L 01/07/19 04:18 Baso % (Auto) 0.5 % (0.2-1.0) 01/07/19 04:18 Neut # (Auto) 8.9 x10^3/uL (2.2-4.8) H 01/07/19 04:18 Lymph # (Auto) 1.5 X10^3/uL (1.3-2.9) 01/07/19 04:18 [place] # (Auto) 1.0 x10^3/uL (0.3-0.8) H 01/07/19 04:18 Eos # (Auto) 0.1 x10^3/uL (0.0-0.2) 01/07/19 04:18 Baso # (Auto) 0.1 X10^3/uL (0.0-0.1) 01/07/19 04:18 Absolute Nucleated RBC 0.0 /100WBC 01/07/19 04:18 PT 15.8 SECONDS (11.8-14.3) 01/05/19 05:05 INR Target Range - 01/05/19 05:05 INR 1.31 (0.8-1.3) H 01/05/19 05:05 Sodium 134 mmol/L (136-145) L 01/07/19 04:18 Corrected Sodium 134 mmol/L (136-145) L 01/07/19 04:18 Potassium 3.4 mmol/L (3.5-5.1) L 01/07/19 04:18 Chloride 98 mmol/L (98-107) 01/07/19 04:18 Carbon Dioxide 24.2 mmol/L (21-32) 01/07/19 04:18 BUN 2 mg/dL (7-18) L 01/07/19 04:18 Creatinine 0.40 mg/dL (0.55-1.02) L 01/07/19 04:18 Est GFR (MDRD) Af Amer > 60 (>60) 01/07/19 04:18 Est GFR (MDRD) Non-Af > 60 (>60) 01/07/19 04:18 Glucose 115 mg/dL (65-99) H 01/07/19 04:18 Calcium 8.2 mg/dL (8.5-10.1) L 01/07/19 04:18 Corrected Calcium 9.6 mg/dL (8.5-10.1) 01/07/19 04:18 Magnesium 1.3 mg/dL (1.7-2.9) L 01/07/19 04:18 Total Bilirubin 0.30 mg/dL (0.2-1.0) 01/07/19 04:18 AST 9 Units/L (15-37) L 01/07/19 04:18 ALT < 6 Units/L (12-78) L 01/07/19 04:18 Alkaline Phosphatase 61 Units/L (46-116) 01/07/19 04:18 Total Protein 5.8 g/dL (6.4-8.2) L 01/07/19 04:18 Albumin 2.3 g/dL (3.4-5.0) L 01/07/19 04:18 Globulin 3.5 g/dL (2.5-4.5) 01/07/19 04:18 Albumin/Globulin Ratio 0.7 Ratio (1.1-2.1) L 01/07/19 04:18 Amylase 23 Units/L (25-115) L 01/03/19 05:20 Lipase 39 Units/L (73-393) L 01/03/19 05:20 Specimen Type Catherized urine 01/03/19 02:30 Urine Color Yellow (YELLOW) 01/03/19 02:30 Urine Appearance Clear (CLEAR) 01/03/19 02:30 Urine pH 6.0 (5.0 - 8.0) 01/03/19 02:30 Ur Specific [place] 1.010 (1.000-1.030) 01/03/19 02:30 Urine Protein 2+ (NEGATIVE) 01/03/19 02:30 Urine Glucose (UA) Negative (NEGATIVE) 01/03/19 02:30 Urine Ketones 1+ (NEGATIVE) 01/03/19 02:30 Urine Occult Blood 5+ (NEGATIVE) 01/03/19 02:30 Urine Nitrite Negative (NEGATIVE) 01/03/19 02:30 Urine Bilirubin Negative (NEGATIVE) 01/03/19 02:30 Urine Urobilinogen Normal (NORMAL) 01/03/19 02:30 Ur Leukocyte Esterase 1+ (NEGATIVE) 01/03/19 02:30 Urine RBC 5-10 /HPF (NONE SEEN) 01/03/19 02:30 Urine WBC 0-2 /HPF (NONE SEEN) 01/03/19 02:30 Ur Squamous Epith Cells Rare /HPF (NEGATIVE) 01/03/19 02:30 Urine Bacteria Negative /HPF (NEGATIVE) 01/03/19 02:30 Ur Culture Indicated? No/not indicated 01/03/19 02:30 Cytology Specimen To follow 01/05/19 15:02 - Assessment and Plan 1: s/p drainage of pelvic abscess .(diverticular abscess ). s/p laparotomy , small bowel resection. gastric ulcer . on IV ATB ,IV Protonix and oral Carafate . will keep the drain for now . repeat bdominal CT in 2 days. same IVF and ATB - Problem Patient Problems: Patient Problems Hypokalemia (Acute) E87.6 Abdominal pain (Acute) R10.9 Abdominal mass (Acute) R19.00 Dehydration (Acute) E86.0 Status post intestinal bypass or anastomosis (Acute) Z98.0 Abdominal abscess (Acute) Abdominal pain (Acute) R10.9
[2019-01-07] MEDS: ZOFRAN INJ 4 MG VIAL IVP PRN (13:55)
--- NOTE | 2019-01-07 20:31 | PCM.PROG ---
Progress Note - Progress Note for Day of Date of Exam: 01/05/19 - Subjective Subjective: IS BEING TREATED FOR SEVERE ABDOMINAL PAIN, SEVERE WEAKNESS, AND DECREASED APPETITE FOLLOWING RECENT DRAINAGE OF PELVIC ABSCESS, LYSIS OF EXTENSIVE ABDOMINAL ADHESIONS, AND TREATMENT FOR A PARTIAL SMALL BOWEL RESECTION X 2 WITH END TO END ANASTOMOSIS. TODAY, SHE IS ALERT AND ORIENTED, LYING IN BED ON MORNING ROUNDS. SHE CONTINUE WITH COMPLAINTS OF ABDOMINAL PAIN AND WEAKNESS. ON EXAMINATION, HEART IS REGULAR IN RATE AND RHYTHM. BILATERAL LUNGS ARE NOTED WITH DIMINISHED LUNG SOUNDS THROUGHOUT. ABDOMEN IS DISTENDED AND NOTED WITH DIFFUSE TENDERNESS. HYPOACTIVE BOWEL SOUNDS NOTED. HER VITALS THIS MORNING ARE: 98.1-103-20-94%-128/65. LABS WERE OBTAINED. ABNORMAL LAB VALUES INCLUDE THE FOLLOWING: WBC 11.8, HGB 10.7, HCT 31.9, INR 1.31, SODIUM 135, POTASSIUM 3.2, BUN 3, CREATININE 0.38, CALCIUM 8.3, AST 14, ALT <6, TOTAL PROTEIN 6.3, ALBUMIN 2.5. AN ABDOMEN/PELVIS CT WITH CONTRAST WAS OBTAINED YESTERDAY. IT REVEALED: Findings most suggestive of a large pelvic abscess. Unchanged bilateral small pleural effusions with bibasilar subsegmental atelectasis and/or consolidation SHE IS CURRENTLY RECEIVING IV LEVAQUIN, IV FORTAZ, NORMAL SALINE WITH 20MEQ KCL AT 125ML/HR, DILAUDID FOR PAIN CONTROL, AND PHENERGAN 12.5MG IM Q6H PRN NAUSEA. WE WILL CONTINUE WITH CURRENT PLAN OF CARE TODAY. PLANS TO CONSULT WITH RADIOLOGY FOR POSSIBLE CT GUIDED NEEDLE ASPIRATION. OTHERWISE, WE PLAN TO FOLLOW UP WITH AM LABS AND CONTINUE TO MONITOR. - Past Medical Family Social History Past Med/Fam/Surg Hx: No changes since H&P (h/o large distal gastric ulcer .) Allergies: Allergies Penicillins Allergy (Verified 12/14/18 05:11) - Review of Systems ROS: No change since H&P - Vital Signs and I&O's Vital Signs: Temperature 97.6 F Pulse Rate [Left Brachial] 89 Pulse Rate 80 Respiratory Rate 20 Blood Pressure [Right Arm] 123/64 Blood Pressure [Left Arm] 106/58 Blood Pressure 122/58 O2 Sat by Pulse Oximetry 99 Intake and Output: Intake & Output 01/05/19 01/06/19 01/07/19 01/08/19 11:59 11:59 11:59 11:59 Intake Total 1680 / 1680 1120 / 1120 1180 / 1180 680 / 680 Output Total 4875 / 4875 Balance -3195 / -3195 1120 / 1120 1180 / 1180 680 / 680 - Physical Exam Oriented: Normal Eyes: Normal Ear: Normal Nose: Normal Throat: Normal Respiratory: Normal Cardiovascular: Normal : Normal Auscultation: Bowel Sounds: Decreased Palpation: Normal Tenderness: Moderate, Other (lower abdominal tenderness , BS+) Skin: Normal Musculoskeletal: Normal Psychiatric: Normal Mood Description: Calm Speech Pattern: Clear, Appropriate - Laboratory and Diagnostics Result Diagrams: 01/07/19 04:18 01/07/19 04:18 Labs: 01/05/19 15:02 Peritoneal Fluid Gram Stain - Final 01/05/19 15:02 Peritoneal Fluid - Preliminary Laboratory WBC 11.5 X10^3/uL (3.6-10.0) H 01/07/19 04:18 RBC 3.73 X10^6/uL (3.5-5.4) 01/07/19 04:18 Hgb 10.4 g/dL (12.0-16.0) L 01/07/19 04:18 Hct 31.1 % (36.0-47.0) L 01/07/19 04:18 MCV 83.4 fL (80.0-100.0) 01/07/19 04:18 MCH 28.0 pg (27.0-34.0) 01/07/19 04:18 MCHC 33.6 g/dL (33.0-35.0) 01/07/19 04:18 RDW 16.3 % (11.6-16.5) 01/07/19 04:18 Plt Count 386 X10^3/uL (150.0-450.0) 01/07/19 04:18 MPV 7.3 fL (7.4-11.0) L 01/07/19 04:18 Neut % (Auto) 77.2 % (42.0-75.0) H 01/07/19 04:18 Lymph % (Auto) 12.9 % (21.0-51.0) L 01/07/19 04:18 [place] % (Auto) 8.7 % (0.0-13.0) 01/07/19 04:18 Eos % (Auto) 0.7 % (0.9-2.9) L 01/07/19 04:18 Baso % (Auto) 0.5 % (0.2-1.0) 01/07/19 04:18 Neut # (Auto) 8.9 x10^3/uL (2.2-4.8) H 01/07/19 04:18 Lymph # (Auto) 1.5 X10^3/uL (1.3-2.9) 01/07/19 04:18 [place] # (Auto) 1.0 x10^3/uL (0.3-0.8) H 01/07/19 04:18 Eos # (Auto) 0.1 x10^3/uL (0.0-0.2) 01/07/19 04:18 Baso # (Auto) 0.1 X10^3/uL (0.0-0.1) 01/07/19 04:18 Absolute Nucleated RBC 0.0 /100WBC 01/07/19 04:18 PT 15.8 SECONDS (11.8-14.3) 01/05/19 05:05 INR Target Range - 01/05/19 05:05 INR 1.31 (0.8-1.3) H 01/05/19 05:05 Sodium 134 mmol/L (136-145) L 01/07/19 04:18 Corrected Sodium 134 mmol/L (136-145) L 01/07/19 04:18 Potassium 3.4 mmol/L (3.5-5.1) L 01/07/19 04:18 Chloride 98 mmol/L (98-107) 01/07/19 04:18 Carbon Dioxide 24.2 mmol/L (21-32) 01/07/19 04:18 BUN 2 mg/dL (7-18) L 01/07/19 04:18 Creatinine 0.40 mg/dL (0.55-1.02) L 01/07/19 04:18 Est GFR (MDRD) Af Amer > 60 (>60) 01/07/19 04:18 Est GFR (MDRD) Non-Af > 60 (>60) 01/07/19 04:18 Glucose 115 mg/dL (65-99) H 01/07/19 04:18 Calcium 8.2 mg/dL (8.5-10.1) L 01/07/19 04:18 Corrected Calcium 9.6 mg/dL (8.5-10.1) 01/07/19 04:18 Magnesium 1.3 mg/dL (1.7-2.9) L 01/07/19 04:18 Total Bilirubin 0.30 mg/dL (0.2-1.0) 01/07/19 04:18 AST 9 Units/L (15-37) L 01/07/19 04:18 ALT < 6 Units/L (12-78) L 01/07/19 04:18 Alkaline Phosphatase 61 Units/L (46-116) 01/07/19 04:18 Total Protein 5.8 g/dL (6.4-8.2) L 01/07/19 04:18 Albumin 2.3 g/dL (3.4-5.0) L 01/07/19 04:18 Globulin 3.5 g/dL (2.5-4.5) 01/07/19 04:18 Albumin/Globulin Ratio 0.7 Ratio (1.1-2.1) L 01/07/19 04:18 Amylase 23 Units/L (25-115) L 01/03/19 05:20 Lipase 39 Units/L (73-393) L 01/03/19 05:20 Specimen Type Catherized urine 01/03/19 02:30 Urine Color Yellow (YELLOW) 01/03/19 02:30 Urine Appearance Clear (CLEAR) 01/03/19 02:30 Urine pH 6.0 (5.0 - 8.0) 01/03/19 02:30 Ur Specific [place] 1.010 (1.000-1.030) 01/03/19 02:30 Urine Protein 2+ (NEGATIVE) 01/03/19 02:30 Urine Glucose (UA) Negative (NEGATIVE) 01/03/19 02:30 Urine Ketones 1+ (NEGATIVE) 01/03/19 02:30 Urine Occult Blood 5+ (NEGATIVE) 01/03/19 02:30 Urine Nitrite Negative (NEGATIVE) 01/03/19 02:30 Urine Bilirubin Negative (NEGATIVE) 01/03/19 02:30 Urine Urobilinogen Normal (NORMAL) 01/03/19 02:30 Ur Leukocyte Esterase 1+ (NEGATIVE) 01/03/19 02:30 Urine RBC 5-10 /HPF (NONE SEEN) 01/03/19 02:30 Urine WBC 0-2 /HPF (NONE SEEN) 01/03/19 02:30 Ur Squamous Epith Cells Rare /HPF (NEGATIVE) 01/03/19 02:30 Urine Bacteria Negative /HPF (NEGATIVE) 01/03/19 02:30 Ur Culture Indicated? No/not indicated 01/03/19 02:30 Cytology Specimen To follow 01/05/19 15:02 - Plan (1) Abdominal abscess Status: Acute Plan: IV ANTIBIOTICS, OBTAIN ABDOMEN/PELVIS CT WITH CONTRAST, CONSULT GENERAL SURGERY, CONTINUE TO MONITOR (2) Abdominal pain Status: Acute Qualifiers: Abdominal location: generalized Qualified Code(s): R10.84 - Generalized abdominal pain Plan: IV ANTIBIOTICS, OBTAIN ABDOMEN/PELVIS CT WITH CONTRAST, CONSULT GENERAL SURGERY, CONTINUE TO MONITOR (3) Status post intestinal bypass or anastomosis Status: Acute (4) Hypokalemia Status: Acute Plan: NORMAL SALINE WITH 20MEQ KCL AT 125ML/HR, POTASSIUM REPLACEMENT PER PROTOCOL (5) Dehydration Status: Acute Plan: NORMAL SALINE WITH 20MEQ KCL AT 125ML/HR
[2019-01-08] MEDS: DILAUDID INJ IVP PRN ×3 (01:20→11:19)
[2019-01-08] MEDS: ZOFRAN INJ 4 MG VIAL IVP PRN ×2 (01:20→11:19)
[2019-01-08] MEDS: NS + KCL 20 MEQ/L 1,000 ML IV SCH ×3 (01:31→20:59)
[2019-01-08] MEDS: FLAGYL IV PREMIX 500 MG BAG 500 MG/100 ML BAG IV SCH ×4 (02:49→20:46)
[2019-01-08 05:01] LABS: BASOPHILS % (AUTO) 0.3 % (0.2-1.0); EOSINOPHILS # (AUTO) 0.2 x10^3/uL (0.0-0.2); EOSINOPHILS % (AUTO) 1.6 % (0.9-2.9); HEMATOCRIT 30.6 % (36.0-47.0); HEMOGLOBIN 10.2 g/dL (12.0-16.0); LYMPHOCYTES # (AUTO) 1.3 X10^3/uL (1.3-2.9); LYMPHOCYTES % (AUTO) 12.7 % (21.0-51.0); MEAN CORPUSCULAR HEMOGLOBIN 28.2 pg (27.0-34.0); MEAN CORPUSCULAR HGB CONC 33.4 g/dL (33.0-35.0); MEAN CORPUSCULAR VOLUME 84.5 fL (80.0-100.0); MEAN PLATELET VOLUME 7.4 fL (7.4-11.0); MONOCYTES # (AUTO) 0.9 x10^3/uL (0.3-0.8); MONOCYTES % (AUTO) 8.8 % (0.0-13.0); NEUTROPHILS # (AUTO) 8.1 x10^3/uL (2.2-4.8); NEUTROPHILS % (AUTO) 76.6 % (42.0-75.0); PLATELET COUNT 390 X10^3/uL (150.0-450.0); RED BLOOD COUNT 3.62 X10^6/uL (3.5-5.4); RED CELL DISTRIBUTION WIDTH 16.1 % (11.6-16.5); WHITE BLOOD COUNT 10.5 X10^3/uL (3.6-10.0)
[2019-01-08 05:14] LABS: ALANINE AMINOTRANSFERASE < 6 Units/L (12-78); ALBUMIN 2.2 g/dL (3.4-5.0); ALKALINE PHOSPHATASE 58 Units/L (46-116); ASPARTATE AMINO TRANSFERASE 8 Units/L (15-37); BLOOD UREA NITROGEN 3 mg/dL (7-18); CARBON DIOXIDE 25.4 mmol/L (21-32); CHLORIDE 103 mmol/L (98-107); COR CA(FOR HYPOALB) 9.4 mg/dL (8.5-10.1); COR NA(FOR HYPERGLY) 136 mmol/L (136-145); CREATININE 0.46 mg/dL (0.55-1.02); MAGNESIUM 1.8 mg/dL (1.7-2.9); SODIUM 136 mmol/L (136-145); TOTAL PROTEIN 5.6 g/dL (6.4-8.2); eGFR NON BLACK RACES > 60 (>60)
[2019-01-08] MEDS: PHENERGAN INJ 25 MG IM PRN (05:54)
[2019-01-08] MEDS: FORTAZ or TAZICEF VIAL INJ IVP SCH ×3 (05:55→20:59)
[2019-01-08] MEDS: CARAFATE PO SCH ×4 (05:56→20:46)
[2019-01-08] MEDS: MAGNESIUM SULFATE 1 GRAM/100 mL PREMIX 1 GM/100 ML BAG IV PRN (06:00)
[2019-01-08] MEDS: LEVAQUIN PREMIX IV 500 MG 500 MG/100 ML BAG IV SCH (08:47)
[2019-01-08] MEDS: LOVENOX INJ 30 MG SYR SC SCH (08:48)
[2019-01-08] MEDS: CYMBALTA PO SCH (08:57)
[2019-01-08] MEDS: NADOLOL 10 MG PO SCH (11:20)
[2019-01-08] MEDS ORDERED: TORADOL 30 MG VIAL ONE (14:52)
[2019-01-08] MEDS ORDERED: TORADOL 30 MG VIAL IVP ONE (15:00)
--- NOTE | 2019-01-08 21:05 | PCM.PROG ---
Progress Note - Progress Note for Day of Date of Exam: 01/06/19 - Subjective Subjective: IS BEING TREATED FOR SEVERE ABDOMINAL PAIN, SEVERE WEAKNESS, AND DECREASED APPETITE FOLLOWING RECENT DRAINAGE OF PELVIC ABSCESS, LYSIS OF EXTENSIVE ABDOMINAL ADHESIONS, AND TREATMENT FOR A PARTIAL SMALL BOWEL RESECTION X 2 WITH END TO END ANASTOMOSIS. TODAY, SHE IS ALERT AND ORIENTED, LYING IN BED ON MORNING ROUNDS. SHE CONTINUE WITH COMPLAINTS OF ABDOMINAL PAIN AND WEAKNESS, BUT REPORTS MODERATE IMPROVEMENT SINCE YESTERDAY. ON EXAMINATION, HEART IS REGULAR IN RATE AND RHYTHM. BILATERAL LUNGS ARE NOTED WITH DIMINISHED LUNG SOUNDS THROUGHOUT. ABDOMEN IS ROUND, SOFT, AND CONTINUES WITH MILD ABDOMINAL PAIN. HYPOACTIVE BOWEL SOUNDS NOTED. SHE IS NOTED WITH A DRAIN TO RIGHT SIDE ABDOMEN. HER VITALS THIS MORNING ARE: 98.7-90-20-96%-129/67. LABS WERE OBTAINED. ABNORMAL LAB VALUES INCLUDE THE FOLLOWING: WBC 12.9, HGB 10.7, HCT 31.9, SODIUM 133, POTASSIUM 3.3, CHLORIDE 97, CARBON DIOXIDE 20.1, BUN 3, CREATININE 0.43, CALCIUM 8.4, AST 11, ALT <6, TOTAL PROTEIN 6.1, ALBUMIN 2.5. AND , RADIOLOGIST PERFORMED A CT GUIDED ASPIRATION YESTERDAY. THEY COLLECTED 350CC OF PURULENT DRAINAGE. A CATHETER WAS INSERTED TO THE AREA TO DRAIN FOR THE NEXT SEVERAL DAYS. THEY ORDERED FOR CATHETER TO BE FLUSHED WITH STERILE SALINE TID. A SPECIMEN WAS SENT TO PATHOLOGY FOR CULTURE AND GRAM STAIN. SHE IS CURRENTLY RECEIVING IV LEVAQUIN, IV FORTAZ, NORMAL SALINE WITH 20MEQ KCL AT 125ML/HR, DILAUDID FOR PAIN CONTROL, AND PHENERGAN 12.5MG IM Q6H PRN NAUSEA. WE WILL CONTINUE WITH CURRENT PLAN OF CARE TODAY. OTHERWISE, WE PLAN TO FOLLOW UP WITH AM LABS AND CONTINUE TO MONITOR. - Past Medical Family Social History Past Med/Fam/Surg Hx: No changes since H&P (h/o large distal gastric ulcer .) Allergies: Allergies Penicillins Allergy (Verified 12/14/18 05:11) - Review of Systems ROS: No change since H&P - Vital Signs and I&O's Vital Signs: Temperature 97.9 F Pulse Rate [Left Brachial] 92 Pulse Rate 80 Respiratory Rate 20 Blood Pressure [Right Arm] 108/61 Blood Pressure [Left Arm] 107/64 Blood Pressure 122/58 O2 Sat by Pulse Oximetry 94 Intake and Output: Intake & Output 01/06/19 01/07/19 01/08/19 01/09/19 11:59 11:59 11:59 11:59 Intake Total 1120 / 1120 1180 / 1180 3230 / 3230 1900 / 1900 Balance 1120 / 1120 1180 / 1180 3230 / 3230 1900 / 1900 - Physical Exam Oriented: Normal Eyes: Normal Ear: Normal Nose: Normal Throat: Normal Respiratory: Normal Cardiovascular: Normal : Normal Auscultation: Bowel Sounds: Decreased Palpation: Normal Tenderness: Mild, Other (lower abdominal tenderness , BS+) Skin: Normal Musculoskeletal: Normal Psychiatric: Normal Mood Description: Calm Speech Pattern: Clear, Appropriate - Laboratory and Diagnostics Result Diagrams: 01/08/19 04:12 01/08/19 04:12 Labs: 01/05/19 15:02 Peritoneal Fluid Gram Stain - Final 01/05/19 15:02 Peritoneal Fluid - Final Staphylococcus Epidermidis Laboratory WBC 10.5 X10^3/uL (3.6-10.0) H 01/08/19 04:12 RBC 3.62 X10^6/uL (3.5-5.4) 01/08/19 04:12 Hgb 10.2 g/dL (12.0-16.0) L 01/08/19 04:12 Hct 30.6 % (36.0-47.0) L 01/08/19 04:12 MCV 84.5 fL (80.0-100.0) 01/08/19 04:12 MCH 28.2 pg (27.0-34.0) 01/08/19 04:12 MCHC 33.4 g/dL (33.0-35.0) 01/08/19 04:12 RDW 16.1 % (11.6-16.5) 01/08/19 04:12 Plt Count 390 X10^3/uL (150.0-450.0) 01/08/19 04:12 MPV 7.4 fL (7.4-11.0) 01/08/19 04:12 Neut % (Auto) 76.6 % (42.0-75.0) H 01/08/19 04:12 Lymph % (Auto) 12.7 % (21.0-51.0) L 01/08/19 04:12 [place] % (Auto) 8.8 % (0.0-13.0) 01/08/19 04:12 Eos % (Auto) 1.6 % (0.9-2.9) 01/08/19 04:12 Baso % (Auto) 0.3 % (0.2-1.0) 01/08/19 04:12 Neut # (Auto) 8.1 x10^3/uL (2.2-4.8) H 01/08/19 04:12 Lymph # (Auto) 1.3 X10^3/uL (1.3-2.9) 01/08/19 04:12 [place] # (Auto) 0.9 x10^3/uL (0.3-0.8) H 01/08/19 04:12 Eos # (Auto) 0.2 x10^3/uL (0.0-0.2) 01/08/19 04:12 Baso # (Auto) 0.0 X10^3/uL (0.0-0.1) 01/08/19 04:12 Absolute Nucleated RBC 0.0 /100WBC 01/08/19 04:12 PT 15.8 SECONDS (11.8-14.3) 01/05/19 05:05 INR Target Range - 01/05/19 05:05 INR 1.31 (0.8-1.3) H 01/05/19 05:05 Sodium 136 mmol/L (136-145) 01/08/19 04:12 Corrected Sodium 136 mmol/L (136-145) 01/08/19 04:12 Potassium 3.9 mmol/L (3.5-5.1) 01/08/19 04:12 Chloride 103 mmol/L (98-107) 01/08/19 04:12 Carbon Dioxide 25.4 mmol/L (21-32) 01/08/19 04:12 BUN 3 mg/dL (7-18) L 01/08/19 04:12 Creatinine 0.46 mg/dL (0.55-1.02) L 01/08/19 04:12 Est GFR (MDRD) Af Amer > 60 (>60) 01/08/19 04:12 Est GFR (MDRD) Non-Af > 60 (>60) 01/08/19 04:12 Glucose 119 mg/dL (65-99) H 01/08/19 04:12 Calcium 8.0 mg/dL (8.5-10.1) L 01/08/19 04:12 Corrected Calcium 9.4 mg/dL (8.5-10.1) 01/08/19 04:12 Magnesium 1.8 mg/dL (1.7-2.9) 01/08/19 04:12 Total Bilirubin 0.20 mg/dL (0.2-1.0) 01/08/19 04:12 AST 8 Units/L (15-37) L 01/08/19 04:12 ALT < 6 Units/L (12-78) L 01/08/19 04:12 Alkaline Phosphatase 58 Units/L (46-116) 01/08/19 04:12 Total Protein 5.6 g/dL (6.4-8.2) L 01/08/19 04:12 Albumin 2.2 g/dL (3.4-5.0) L 01/08/19 04:12 Globulin 3.4 g/dL (2.5-4.5) 01/08/19 04:12 Albumin/Globulin Ratio 0.6 Ratio (1.1-2.1) L 01/08/19 04:12 Amylase 23 Units/L (25-115) L 01/03/19 05:20 Lipase 39 Units/L (73-393) L 01/03/19 05:20 Specimen Type Catherized urine 01/03/19 02:30 Urine Color Yellow (YELLOW) 01/03/19 02:30 Urine Appearance Clear (CLEAR) 01/03/19 02:30 Urine pH 6.0 (5.0 - 8.0) 01/03/19 02:30 Ur Specific [place] 1.010 (1.000-1.030) 01/03/19 02:30 Urine Protein 2+ (NEGATIVE) 01/03/19 02:30 Urine Glucose (UA) Negative (NEGATIVE) 01/03/19 02:30 Urine Ketones 1+ (NEGATIVE) 01/03/19 02:30 Urine Occult Blood 5+ (NEGATIVE) 01/03/19 02:30 Urine Nitrite Negative (NEGATIVE) 01/03/19 02:30 Urine Bilirubin Negative (NEGATIVE) 01/03/19 02:30 Urine Urobilinogen Normal (NORMAL) 01/03/19 02:30 Ur Leukocyte Esterase 1+ (NEGATIVE) 01/03/19 02:30 Urine RBC 5-10 /HPF (NONE SEEN) 01/03/19 02:30 Urine WBC 0-2 /HPF (NONE SEEN) 01/03/19 02:30 Ur Squamous Epith Cells Rare /HPF (NEGATIVE) 01/03/19 02:30 Urine Bacteria Negative /HPF (NEGATIVE) 01/03/19 02:30 Ur Culture Indicated? No/not indicated 01/03/19 02:30 Cytology Specimen To follow 01/05/19 15:02 - Plan (1) Abdominal abscess Status: Acute Plan: IV ANTIBIOTICS, STATUS POST CT GUIDED ASPIRATION OF ABSCESS, CONTINUE TO MONITOR (2) Abdominal pain Status: Acute Qualifiers: Abdominal location: generalized Qualified Code(s): R10.84 - Generalized abdominal pain Plan: IV ANTIBIOTICS, STATUS POST CT GUIDED ASPIRATION OF ABSCESS, CONTINUE TO MONITOR (3) Status post intestinal bypass or anastomosis Status: Acute (4) Hypokalemia Status: Acute Plan: NORMAL SALINE WITH 20MEQ KCL AT 125ML/HR, POTASSIUM REPLACEMENT PER PROTOCOL (5) Dehydration Status: Acute Plan: NORMAL SALINE WITH 20MEQ KCL AT 125ML/HR
[2019-01-08] MEDS: NORCO 5/325 MG TAB PO PRN (21:21)
[2019-01-09] MEDS: DILAUDID INJ IVP PRN ×4 (00:15→20:30)
[2019-01-09] MEDS: ZOFRAN INJ 4 MG VIAL IVP PRN ×3 (00:15→20:30)
[2019-01-09] MEDS: NS + KCL 20 MEQ/L 1,000 ML IV SCH (02:20)
[2019-01-09] MEDS: FLAGYL IV PREMIX 500 MG BAG 500 MG/100 ML BAG IV SCH ×4 (02:52→20:30)
--- NOTE | 2019-01-09 03:37 | RAD ---
KUB, two views. History: Abdominal pain, postop abdominal mass. Comparison: CT and radiograph from 01/04/2019. Findings/conclusion: There has been interval placement of a pigtail drainage catheter within the pelvis fluid collection. Visualized portions of the catheter are intact. Bowel gas pattern is nonobstructive. Anastomotic suture is seen within the right lower quadrant. No discrete free air. No acute osseous findings. Reported By:
[2019-01-09 04:50] LABS: BASOPHILS # (AUTO) 0.1 X10^3/uL (0.0-0.1); BASOPHILS % (AUTO) 1.4 % (0.2-1.0); EOSINOPHILS # (AUTO) 0.1 x10^3/uL (0.0-0.2); EOSINOPHILS % (AUTO) 1.6 % (0.9-2.9); HEMATOCRIT 31.1 % (36.0-47.0); HEMOGLOBIN 10.3 g/dL (12.0-16.0); LYMPHOCYTES # (AUTO) 1.2 X10^3/uL (1.3-2.9); LYMPHOCYTES % (AUTO) 13.2 % (21.0-51.0); MEAN CORPUSCULAR HEMOGLOBIN 27.8 pg (27.0-34.0); MEAN CORPUSCULAR HGB CONC 33.1 g/dL (33.0-35.0); MEAN CORPUSCULAR VOLUME 83.8 fL (80.0-100.0); MONOCYTES # (AUTO) 0.9 x10^3/uL (0.3-0.8); MONOCYTES % (AUTO) 9.4 % (0.0-13.0); NEUTROPHILS # (AUTO) 6.8 x10^3/uL (2.2-4.8); NEUTROPHILS % (AUTO) 74.4 % (42.0-75.0); PLATELET COUNT 429 X10^3/uL (150.0-450.0); RED BLOOD COUNT 3.71 X10^6/uL (3.5-5.4); RED CELL DISTRIBUTION WIDTH 16.4 % (11.6-16.5); WHITE BLOOD COUNT 9.1 X10^3/uL (3.6-10.0)
[2019-01-09] MEDS ORDERED: NS 100 ML IV 100 ML ONE (05:03)
[2019-01-09 05:10] LABS: ALANINE AMINOTRANSFERASE < 6 Units/L (12-78); ALBUMIN 2.3 g/dL (3.4-5.0); ALKALINE PHOSPHATASE 55 Units/L (46-116); ASPARTATE AMINO TRANSFERASE 8 Units/L (15-37); BLOOD UREA NITROGEN 3 mg/dL (7-18); CALCIUM 8.3 mg/dL (8.5-10.1); CARBON DIOXIDE 25.4 mmol/L (21-32); CHLORIDE 103 mmol/L (98-107); COR CA(FOR HYPOALB) 9.7 mg/dL (8.5-10.1); CREATININE 0.47 mg/dL (0.55-1.02); SODIUM 137 mmol/L (136-145); TOTAL PROTEIN 6.1 g/dL (6.4-8.2); eGFR NON BLACK RACES > 60 (>60)
[2019-01-09 05:18] LABS: PLATELET MORPHOLOGY COMMENT NORMAL (NORMAL)
[2019-01-09] MEDS: FORTAZ or TAZICEF VIAL INJ IVP SCH ×3 (05:49→21:00)
[2019-01-09] MEDS: CARAFATE PO SCH ×4 (05:49→20:30)
--- NOTE | 2019-01-09 07:39 | CT ---
HISTORY: Follow-up pelvic abscess Study: CT abdomen pelvis with contrast Comparison: 01/06/2019, 01/04/2019 Technique: Axial post-contrast images with coronal and sagittal reformats. Dose reduction procedures were used with mA/kv adjusted for body size. Findings: Basilar atelectatic changes are present bilaterally underlying bilateral pleural effusions unchanged from the prior examination. The heart is enlarged. The liver, spleen, adrenal glands, and pancreas are within normal limits. No opaque stones are present within the gallbladder. The kidneys are unobstructed and without stones or masses. No ureteral calculi are identified. Calcific atherosclerotic changes present in a nondilated abdominal aorta. No intraperitoneal or retroperitoneal lymphadenopathy of significance is identified. Examination of the pelvis demonstrated a pigtail drainage catheter within the previously described pelvic abscess which has decreased in size from 12.5 x 7 cm x 4 cm to now 6.2 by 2.3 by 2.8 cm. No pelvic fluid is identified. The bladder is somewhat distended. Air within the bladder is presumably due to recent instrumentation however historical correlation is recommended. If the patient has not been instrumented recently than a fistula could not be excluded. No lytic or blastic skeletal lesions of significance are identified. IMPRESSION: Decrease in size of the patient's pelvic abscess status post percutaneous drainage as described above No change bibasilar atelectatic changes and bilateral pleural effusions Reported By:
[2019-01-09] MEDS: LEVAQUIN PREMIX IV 500 MG 500 MG/100 ML BAG IV SCH (08:19)
[2019-01-09] MEDS: LOVENOX INJ 30 MG SYR SC SCH (08:19)
[2019-01-09] MEDS: CYMBALTA PO SCH (08:19)
[2019-01-09] MEDS: NADOLOL 10 MG PO SCH (08:20)
[2019-01-09] MEDS: NORCO 5/325 MG TAB PO PRN ×2 (08:25→18:42)
--- NOTE | 2019-01-09 11:19 | PCM.PROG ---
Progress Note - Progress Note for Day of Date of Exam: 01/07/19 - Subjective Subjective: IS BEING TREATED FOR SEVERE ABDOMINAL PAIN, SEVERE WEAKNESS, AND DECREASED APPETITE FOLLOWING RECENT DRAINAGE OF PELVIC ABSCESS, LYSIS OF EXTENSIVE ABDOMINAL ADHESIONS, AND TREATMENT FOR A PARTIAL SMALL BOWEL RESECTION X 2 WITH END TO END ANASTOMOSIS. A CT GUIDED ASPIRATION WAS PERFORMED ON 01/05 AND CATHETER WAS LEFT IN PLACE FOR DRAINAGE OF ABSCESS. TODAY, SHE IS ALERT AND ORIENTED, LYING IN BED ON MORNING ROUNDS. SHE CONTINUES WITH COMPLAINTS OF ABDOMINAL PAIN AND WEAKNESS, BUT CONTINUES TO REPORT SLIGHT IMPROVEMENT. ON EXAMINATION, HEART IS REGULAR IN RATE AND RHYTHM. BILATERAL LUNGS ARE NOTED WITH DIMINISHED LUNG SOUNDS THROUGHOUT. ABDOMEN IS ROUND, SOFT, AND CONTINUES WITH MILD ABDOMINAL PAIN. HYPOACTIVE BOWEL SOUNDS NOTED. SHE IS NOTED WITH A DRAIN TO RIGHT SIDE ABDOMEN. THERE IS MODERATE DRAINAGE NOTED IN BAG. HER VITALS THIS MORNING ARE: 97.6-95-20-96%-124/70. LABS WERE OBTAINED. ABNORMAL LAB VALUES INCLUDE THE FOLLOWING: WBC 11.5, HGB 10.4, HCT 31.1, SODIUM 134, POTASSIUM 3.4, BUN 2, CREATININE 0.40, GLUCOSE 115, CALCIUM 8.2, MAGNESIUM 1.3, AST 9, ALT <6, TOTAL PROTEIN 5.8, ALBUMIN 2.3. SHE IS CURRENTLY RECEIVING IV LEVAQUIN, IV FORTAZ, NORMAL SALINE WITH 20MEQ KCL AT 125ML/HR, DILAUDID FOR PAIN CONTROL, AND PHENERGAN 12.5MG IM Q6H PRN NAUSEA. WE WILL CONTINUE WITH CURRENT PLAN OF CARE TODAY. WE PLAN TO REPEAT AN ABDOMEN/PELVIS CT WITH CONTRAST ON WEDNESDAY MORNING. OTHERWISE, WE PLAN TO FOLLOW UP WITH AM LABS AND CONTINUE TO MONITOR. - Past Medical Family Social History Past Med/Fam/Surg Hx: No changes since H&P (h/o large distal gastric ulcer .) Allergies: Allergies Penicillins Allergy (Verified 12/14/18 05:11) - Review of Systems ROS: No change since H&P - Vital Signs and I&O's Vital Signs: Temperature 98 F Pulse Rate [Left Brachial] 102 Pulse Rate 80 Respiratory Rate 20 Blood Pressure [Right Arm] 108/61 Blood Pressure [Left Arm] 127/66 Blood Pressure 122/58 O2 Sat by Pulse Oximetry 93 Intake and Output: Intake & Output 01/06/19 01/07/19 01/08/1919 11:59 11:59 11:59 11:59 Intake Total 1120 / 1120 1180 / 1180 3230 / 3230 3480 / 3480 Balance 1120 / 1120 1180 / 1180 3230 / 3230 3480 / 3480 - Physical Exam Oriented: Normal Eyes: Normal Ear: Normal Nose: Normal Throat: Normal Respiratory: Normal Cardiovascular: Normal : Normal Auscultation: Bowel Sounds: Decreased Tenderness: Mild, Other (lower abdominal tenderness , BS+) Skin: Normal Musculoskeletal: Normal Psychiatric: Normal Mood Description: Calm Speech Pattern: Clear, Appropriate - Laboratory and Diagnostics Result Diagrams: 01/09/19 04:13 01/09/19 04:13 Labs: 01/05/19 15:02 Peritoneal Fluid Gram Stain - Final 01/05/19 15:02 Peritoneal Fluid - Final Staphylococcus Epidermidis Laboratory WBC 9.1 X10^3/uL (3.6-10.0) 01/09/19 04:13 RBC 3.71 X10^6/uL (3.5-5.4) 01/09/19 04:13 Hgb 10.3 g/dL (12.0-16.0) L 01/09/19 04:13 Hct 31.1 % (36.0-47.0) L 01/09/19 04:13 MCV 83.8 fL (80.0-100.0) 01/09/19 04:13 MCH 27.8 pg (27.0-34.0) 01/09/19 04:13 MCHC 33.1 g/dL (33.0-35.0) 01/09/19 04:13 RDW 16.4 % (11.6-16.5) 01/09/19 04:13 Plt Count 429 X10^3/uL (150.0-450.0) 01/09/19 04:13 Plt Count Comment Adequate (ADEQUATE) 01/09/19 04:13 MPV 7.0 fL (7.4-11.0) L 01/09/19 04:13 Neut % (Auto) 74.4 % (42.0-75.0) 01/09/19 04:13 Lymph % (Auto) 13.2 % (21.0-51.0) L 01/09/19 04:13 [place] % (Auto) 9.4 % (0.0-13.0) 01/09/19 04:13 Eos % (Auto) 1.6 % (0.9-2.9) 01/09/19 04:13 Baso % (Auto) 1.4 % (0.2-1.0) H 01/09/19 04:13 Neut # (Auto) 6.8 x10^3/uL (2.2-4.8) H 01/09/19 04:13 Lymph # (Auto) 1.2 X10^3/uL (1.3-2.9) L 01/09/19 04:13 [place] # (Auto) 0.9 x10^3/uL (0.3-0.8) H 01/09/19 04:13 Eos # (Auto) 0.1 x10^3/uL (0.0-0.2) 01/09/19 04:13 Baso # (Auto) 0.1 X10^3/uL (0.0-0.1) 01/09/19 04:13 Absolute Nucleated RBC 0.0 /100WBC 01/09/19 04:13 Total Counted 100 01/09/19 04:13 Neutrophils % (Manual) 58 % (39-76) 01/09/19 04:13 Lymphocytes % (Manual) 35 % (13-43) 01/09/19 04:13 Monocytes % (Manual) 7 % (4-9) 01/09/19 04:13 Plt Morphology Comment Normal (NORMAL) 01/09/19 04:13 RBC Morphology Normal (NORMAL) 01/09/19 04:13 PT 15.8 SECONDS (11.8-14.3) 01/05/19 05:05 INR Target Range - 01/05/19 05:05 INR 1.31 (0.8-1.3) H 01/05/19 05:05 Sodium 137 mmol/L (136-145) 01/09/19 04:13 Corrected Sodium TNP 01/09/19 04:13 Potassium 4.2 mmol/L (3.5-5.1) 01/09/19 04:13 Chloride 103 mmol/L (98-107) 01/09/19 04:13 Carbon Dioxide 25.4 mmol/L (21-32) 01/09/19 04:13 BUN 3 mg/dL (7-18) L 01/09/19 04:13 Creatinine 0.47 mg/dL (0.55-1.02) L 01/09/19 04:13 Est GFR (MDRD) Af Amer > 60 (>60) 01/09/19 04:13 Est GFR (MDRD) Non-Af > 60 (>60) 01/09/19 04:13 Glucose 102 mg/dL (65-99) H 01/09/19 04:13 Calcium 8.3 mg/dL (8.5-10.1) L 01/09/19 04:13 Corrected Calcium 9.7 mg/dL (8.5-10.1) 01/09/19 04:13 Magnesium 1.8 mg/dL (1.7-2.9) 01/08/19 04:12 Total Bilirubin 0.20 mg/dL (0.2-1.0) 01/09/19 04:13 AST 8 Units/L (15-37) L 01/09/19 04:13 ALT < 6 Units/L (12-78) L 01/09/19 04:13 Alkaline Phosphatase 55 Units/L (46-116) 01/09/19 04:13 Total Protein 6.1 g/dL (6.4-8.2) L 01/09/19 04:13 Albumin 2.3 g/dL (3.4-5.0) L 01/09/19 04:13 Globulin 3.8 g/dL (2.5-4.5) 01/09/19 04:13 Albumin/Globulin Ratio 0.6 Ratio (1.1-2.1) L 01/09/19 04:13 Amylase 23 Units/L (25-115) L 01/03/19 05:20 Lipase 39 Units/L (73-393) L 01/03/19 05:20 Specimen Type Catherized urine 01/03/19 02:30 Urine Color Yellow (YELLOW) 01/03/19 02:30 Urine Appearance Clear (CLEAR) 01/03/19 02:30 Urine pH 6.0 (5.0 - 8.0) 01/03/19 02:30 Ur Specific [place] 1.010 (1.000-1.030) 01/03/19 02:30 Urine Protein 2+ (NEGATIVE) 01/03/19 02:30 Urine Glucose (UA) Negative (NEGATIVE) 01/03/19 02:30 Urine Ketones 1+ (NEGATIVE) 01/03/19 02:30 Urine Occult Blood 5+ (NEGATIVE) 01/03/19 02:30 Urine Nitrite Negative (NEGATIVE) 01/03/19 02:30 Urine Bilirubin Negative (NEGATIVE) 01/03/19 02:30 Urine Urobilinogen Normal (NORMAL) 01/03/19 02:30 Ur Leukocyte Esterase 1+ (NEGATIVE) 01/03/19 02:30 Urine RBC 5-10 /HPF (NONE SEEN) 01/03/19 02:30 Urine WBC 0-2 /HPF (NONE SEEN) 01/03/19 02:30 Ur Squamous Epith Cells Rare /HPF (NEGATIVE) 01/03/19 02:30 Urine Bacteria Negative /HPF (NEGATIVE) 01/03/19 02:30 Ur Culture Indicated? No/not indicated 01/03/19 02:30 Cytology Specimen To follow 01/05/19 15:02 - Plan (1) Abdominal abscess Status: Acute Plan: IV ANTIBIOTICS, STATUS POST CT GUIDED ASPIRATION OF ABSCESS WITH CATHETER IN PLACE FOR DRAINAGE OF ABSCESS, CONTINUE TO MONITOR, REPEAT ABDOMEN/PELVIS CT ON WEDNESDAY (2) Abdominal pain Status: Acute Qualifiers: Abdominal location: generalized Qualified Code(s): R10.84 - Generalized abdominal pain Plan: IV ANTIBIOTICS, STATUS POST CT GUIDED ASPIRATION OF ABSCESS, CONTINUE TO MONITOR (3) Status post intestinal bypass or anastomosis Status: Acute (4) Hypokalemia Status: Acute Plan: NORMAL SALINE WITH 20MEQ KCL AT 125ML/HR, POTASSIUM REPLACEMENT PER PROTOCOL (5) Hypomagnesemia Status: Acute Plan: MAGNESIUM REPLACEMENT PER PROTOCOL, CONTINUE TO MONITOR (6) Dehydration Status: Acute Plan: NORMAL SALINE WITH 20MEQ KCL AT 125ML/HR
--- NOTE | 2019-01-09 11:23 | PCM.PROG ---
Progress Note - Progress Note for Day of Date of Exam: 01/08/19 - Subjective Subjective: IS BEING TREATED FOR SEVERE ABDOMINAL PAIN, SEVERE WEAKNESS, AND DECREASED APPETITE FOLLOWING RECENT DRAINAGE OF PELVIC ABSCESS, LYSIS OF EXTENSIVE ABDOMINAL ADHESIONS, AND TREATMENT FOR A PARTIAL SMALL BOWEL RESECTION X 2 WITH END TO END ANASTOMOSIS. A CT GUIDED ASPIRATION WAS PERFORMED ON 01/05 AND CATHETER WAS LEFT IN PLACE FOR DRAINAGE OF ABSCESS. TODAY, SHE IS ALERT AND ORIENTED, LYING IN BED ON MORNING ROUNDS. SHE CONTINUES WITH COMPLAINTS OF ABDOMINAL PAIN AND WEAKNESS, BUT CONTINUES TO REPORT SLIGHT IMPROVEMENT. ON EXAMINATION, HEART IS REGULAR IN RATE AND RHYTHM. BILATERAL LUNGS ARE NOTED WITH DIMINISHED LUNG SOUNDS THROUGHOUT. ABDOMEN IS ROUND, SOFT, AND CONTINUES WITH MILD ABDOMINAL PAIN. HYPOACTIVE BOWEL SOUNDS NOTED. SHE IS NOTED WITH A DRAIN TO RIGHT SIDE ABDOMEN. THERE IS MODERATE DRAINAGE NOTED IN BAG. HER VITALS THIS MORNING ARE: 97.7-87-18-93%-108/61. LABS WERE OBTAINED. ABNORMAL LAB VALUES INCLUDE THE FOLLOWING: WBC 10.5, HGB 10.2, HCT 30.6, BUN 3, CREATININE 0.46, GLUCOSE 119, CALCIUM 8.0, AST 8, ALT <6, TOTAL PROTEIN 5.6, ALBUMIN 2.2. SHE IS CURRENTLY RECEIVING IV LEVAQUIN, IV FORTAZ, NORMAL SALINE WITH 20MEQ KCL AT 125ML/HR, DILAUDID FOR PAIN CONTROL, AND PHENERGAN 12.5MG IM Q6H PRN NAUSEA. WE WILL CONTINUE WITH CURRENT PLAN OF CARE TODAY. WE WILL ADD [place] 5/325MG PO Q4H PRN. WE PLAN TO REPEAT AN ABDOMEN/PELVIS CT WITH CONTRAST ON TOMORROW MORNING. OTHERWISE, WE PLAN TO FOLLOW UP WITH AM LABS AND CONTINUE TO MONITOR. - Past Medical Family Social History Past Med/Fam/Surg Hx: No changes since H&P (h/o large distal gastric ulcer .) Allergies: Allergies Penicillins Allergy (Verified 12/14/18 05:11) - Review of Systems ROS: No change since H&P - Vital Signs and I&O's Vital Signs: Temperature 98 F Pulse Rate [Left Brachial] 102 Pulse Rate 80 Respiratory Rate 20 Blood Pressure [Right Arm] 108/61 Blood Pressure [Left Arm] 127/66 Blood Pressure 122/58 O2 Sat by Pulse Oximetry 93 Intake and Output: Intake & Output 08/23/19 01/07/19 01/08/19 01/09/19 11:59 11:59 11:59 11:59 Intake Total 1120 / 1120 1180 / 1180 3230 / 3230 3480 / 3480 Balance 1120 / 1120 1180 / 1180 3230 / 3230 3480 / 3480 - Physical Exam Oriented: Normal Eyes: Normal Ear: Normal Nose: Normal Throat: Normal Respiratory: Normal Cardiovascular: Normal : Normal Auscultation: Bowel Sounds: Decreased Palpation: Normal Tenderness: Mild, Other (lower abdominal tenderness , BS+) Skin: Normal Musculoskeletal: Normal Psychiatric: Normal Mood Description: Calm Speech Pattern: Clear, Appropriate - Laboratory and Diagnostics Result Diagrams: 01/09/19 04:13 01/09/19 04:13 Labs: 01/05/19 15:02 Peritoneal Fluid Gram Stain - Final 01/05/19 15:02 Peritoneal Fluid - Final Staphylococcus Epidermidis Laboratory WBC 9.1 X10^3/uL (3.6-10.0) 01/09/19 04:13 RBC 3.71 X10^6/uL (3.5-5.4) 01/09/19 04:13 Hgb 10.3 g/dL (12.0-16.0) L 01/09/19 04:13 Hct 31.1 % (36.0-47.0) L 01/09/19 04:13 MCV 83.8 fL (80.0-100.0) 01/09/19 04:13 MCH 27.8 pg (27.0-34.0) 01/09/19 04:13 MCHC 33.1 g/dL (33.0-35.0) 01/09/19 04:13 RDW 16.4 % (11.6-16.5) 01/09/19 04:13 Plt Count 429 X10^3/uL (150.0-450.0) 01/09/19 04:13 Plt Count Comment Adequate (ADEQUATE) 01/09/19 04:13 MPV 7.0 fL (7.4-11.0) L 01/09/19 04:13 Neut % (Auto) 74.4 % (42.0-75.0) 01/09/19 04:13 Lymph % (Auto) 13.2 % (21.0-51.0) L 01/09/19 04:13 [place] % (Auto) 9.4 % (0.0-13.0) 01/09/19 04:13 Eos % (Auto) 1.6 % (0.9-2.9) 01/09/19 04:13 Baso % (Auto) 1.4 % (0.2-1.0) H 01/09/19 04:13 Neut # (Auto) 6.8 x10^3/uL (2.2-4.8) H 01/09/19 04:13 Lymph # (Auto) 1.2 X10^3/uL (1.3-2.9) L 01/09/19 04:13 [place] # (Auto) 0.9 x10^3/uL (0.3-0.8) H 01/09/19 04:13 Eos # (Auto) 0.1 x10^3/uL (0.0-0.2) 01/09/19 04:13 Baso # (Auto) 0.1 X10^3/uL (0.0-0.1) 01/09/19 04:13 Absolute Nucleated RBC 0.0 /100WBC 01/09/19 04:13 Total Counted 100 01/09/19 04:13 Neutrophils % (Manual) 58 % (39-76) 01/09/19 04:13 Lymphocytes % (Manual) 35 % (13-43) 01/09/19 04:13 Monocytes % (Manual) 7 % (4-9) 01/09/19 04:13 Plt Morphology Comment Normal (NORMAL) 01/09/19 04:13 RBC Morphology Normal (NORMAL) 01/09/19 04:13 PT 15.8 SECONDS (11.8-14.3) 01/05/19 05:05 INR Target Range - 01/05/19 05:05 INR 1.31 (0.8-1.3) H 01/05/19 05:05 Sodium 137 mmol/L (136-145) 01/09/19 04:13 Corrected Sodium TNP 01/09/19 04:13 Potassium 4.2 mmol/L (3.5-5.1) 01/09/19 04:13 Chloride 103 mmol/L (98-107) 01/09/19 04:13 Carbon Dioxide 25.4 mmol/L (21-32) 01/09/19 04:13 BUN 3 mg/dL (7-18) L 01/09/19 04:13 Creatinine 0.47 mg/dL (0.55-1.02) L 01/09/19 04:13 Est GFR (MDRD) Af Amer > 60 (>60) 01/09/19 04:13 Est GFR (MDRD) Non-Af > 60 (>60) 01/09/19 04:13 Glucose 102 mg/dL (65-99) H 01/09/19 04:13 Calcium 8.3 mg/dL (8.5-10.1) L 01/09/19 04:13 Corrected Calcium 9.7 mg/dL (8.5-10.1) 01/09/19 04:13 Magnesium 1.8 mg/dL (1.7-2.9) 01/08/19 04:12 Total Bilirubin 0.20 mg/dL (0.2-1.0) 01/09/19 04:13 AST 8 Units/L (15-37) L 01/09/19 04:13 ALT < 6 Units/L (12-78) L 01/09/19 04:13 Alkaline Phosphatase 55 Units/L (46-116) 01/09/19 04:13 Total Protein 6.1 g/dL (6.4-8.2) L 01/09/19 04:13 Albumin 2.3 g/dL (3.4-5.0) L 01/09/19 04:13 Globulin 3.8 g/dL (2.5-4.5) 01/09/19 04:13 Albumin/Globulin Ratio 0.6 Ratio (1.1-2.1) L 01/09/19 04:13 Amylase 23 Units/L (25-115) L 01/03/19 05:20 Lipase 39 Units/L (73-393) L 01/03/19 05:20 Specimen Type Catherized urine 01/03/19 02:30 Urine Color Yellow (YELLOW) 01/03/19 02:30 Urine Appearance Clear (CLEAR) 01/03/19 02:30 Urine pH 6.0 (5.0 - 8.0) 01/03/19 02:30 Ur Specific [place] 1.010 (1.000-1.030) 01/03/19 02:30 Urine Protein 2+ (NEGATIVE) 01/03/19 02:30 Urine Glucose (UA) Negative (NEGATIVE) 01/03/19 02:30 Urine Ketones 1+ (NEGATIVE) 01/03/19 02:30 Urine Occult Blood 5+ (NEGATIVE) 01/03/19 02:30 Urine Nitrite Negative (NEGATIVE) 01/03/19 02:30 Urine Bilirubin Negative (NEGATIVE) 01/03/19 02:30 Urine Urobilinogen Normal (NORMAL) 01/03/19 02:30 Ur Leukocyte Esterase 1+ (NEGATIVE) 01/03/19 02:30 Urine RBC 5-10 /HPF (NONE SEEN) 01/03/19 02:30 Urine WBC 0-2 /HPF (NONE SEEN) 01/03/19 02:30 Ur Squamous Epith Cells Rare /HPF (NEGATIVE) 01/03/19 02:30 Urine Bacteria Negative /HPF (NEGATIVE) 01/03/19 02:30 Ur Culture Indicated? No/not indicated 01/03/19 02:30 Cytology Specimen To follow 01/05/19 15:02 - Plan (1) Abdominal abscess Status: Acute Plan: IV ANTIBIOTICS, STATUS POST CT GUIDED ASPIRATION OF ABSCESS WITH CATHETER IN PLACE FOR DRAINAGE OF ABSCESS, CONTINUE TO MONITOR, REPEAT ABDOMEN/PELVIS CT ON WEDNESDAY (2) Abdominal pain Status: Acute Qualifiers: Abdominal location: generalized Qualified Code(s): R10.84 - Generalized abdominal pain Plan: IV ANTIBIOTICS, STATUS POST CT GUIDED ASPIRATION OF ABSCESS, CONTINUE TO MONITOR (3) Status post intestinal bypass or anastomosis Status: Acute (4) Hypokalemia Status: Acute Plan: NORMAL SALINE WITH 20MEQ KCL AT 125ML/HR, POTASSIUM REPLACEMENT PER PROTOCOL (5) Hypomagnesemia Status: Acute Plan: MAGNESIUM REPLACEMENT PER PROTOCOL, CONTINUE TO MONITOR (6) Dehydration Status: Acute Plan: NORMAL SALINE WITH 20MEQ KCL AT 125ML/HR
--- NOTE | 2019-01-09 16:12 | DR.PROGNOT ---
Hospital Progress Notes - Progress Note for Day of: Progress Note Date: 01/09/19 - Chief Complaint Chief Complaint: still having moderate amount of drainage in the drainage bag . lower abdominal pain and pain pain at catheter site. no nausea or vomiting . - Past Medical Family Social History Past Med/Fam/Surg Hx: No changes since H&P (h/o large distal gastric ulcer .) Allergies: Allergies Penicillins Allergy (Verified 12/14/18 05:11) - Review Of Systems ROS: No change since H&P - Vital Signs Vital Signs: Temperature 98.4 F Pulse Rate [Left Brachial] 94 Pulse Rate 80 Respiratory Rate 20 Blood Pressure [Right Arm] 108/61 Blood Pressure [Left Arm] 117/58 Blood Pressure 122/58 O2 Sat by Pulse Oximetry 94 - Physical Exam Oriented: Normal Eyes: Normal Ear: Normal Nose: Normal Throat: Normal Respiratory: Normal Cardiovascular: Normal : Normal GI:Auscultation: Decreased GI:Palpation: Normal GI: Tenderness: Mild, Other (lower abdominal tenderness , BS+) Skin: Normal Musculoskeletal: Normal Psychiatric: Normal Mood Description: Calm Speech Pattern: Clear, Appropriate - Laboratory and Diagnostics Result Diagrams: 01/09/19 04:13 01/09/19 04:13 Labs: 01/05/19 15:02 Peritoneal Fluid Gram Stain - Final 01/05/19 15:02 Peritoneal Fluid - Final Staphylococcus Epidermidis Laboratory WBC 9.1 X10^3/uL (3.6-10.0) 01/09/19 04:13 RBC 3.71 X10^6/uL (3.5-5.4) 01/09/19 04:13 Hgb 10.3 g/dL (12.0-16.0) L 01/09/19 04:13 Hct 31.1 % (36.0-47.0) L 01/09/19 04:13 MCV 83.8 fL (80.0-100.0) 01/09/19 04:13 MCH 27.8 pg (27.0-34.0) 01/09/19 04:13 MCHC 33.1 g/dL (33.0-35.0) 01/09/19 04:13 RDW 16.4 % (11.6-16.5) 01/09/19 04:13 Plt Count 429 X10^3/uL (150.0-450.0) 01/09/19 04:13 Plt Count Comment Adequate (ADEQUATE) 01/09/19 04:13 MPV 7.0 fL (7.4-11.0) L 01/09/19 04:13 Neut % (Auto) 74.4 % (42.0-75.0) 01/09/19 04:13 Lymph % (Auto) 13.2 % (21.0-51.0) L 01/09/19 04:13 [place] % (Auto) 9.4 % (0.0-13.0) 01/09/19 04:13 Eos % (Auto) 1.6 % (0.9-2.9) 01/09/19 04:13 Baso % (Auto) 1.4 % (0.2-1.0) H 01/09/19 04:13 Neut # (Auto) 6.8 x10^3/uL (2.2-4.8) H 01/09/19 04:13 Lymph # (Auto) 1.2 X10^3/uL (1.3-2.9) L 01/09/19 04:13 [place] # (Auto) 0.9 x10^3/uL (0.3-0.8) H 01/09/19 04:13 Eos # (Auto) 0.1 x10^3/uL (0.0-0.2) 01/09/19 04:13 Baso # (Auto) 0.1 X10^3/uL (0.0-0.1) 01/09/19 04:13 Absolute Nucleated RBC 0.0 /100WBC 01/09/19 04:13 Total Counted 100 01/09/19 04:13 Neutrophils % (Manual) 58 % (39-76) 01/09/19 04:13 Lymphocytes % (Manual) 35 % (13-43) 01/09/19 04:13 Monocytes % (Manual) 7 % (4-9) 01/09/19 04:13 Plt Morphology Comment Normal (NORMAL) 01/09/19 04:13 RBC Morphology Normal (NORMAL) 01/09/19 04:13 PT 15.8 SECONDS (11.8-14.3) 01/05/19 05:05 INR Target Range - 01/05/19 05:05 INR 1.31 (0.8-1.3) H 01/05/19 05:05 Sodium 137 mmol/L (136-145) 01/09/19 04:13 Corrected Sodium TNP 01/09/19 04:13 Potassium 4.2 mmol/L (3.5-5.1) 01/09/19 04:13 Chloride 103 mmol/L (98-107) 01/09/19 04:13 Carbon Dioxide 25.4 mmol/L (21-32) 01/09/19 04:13 BUN 3 mg/dL (7-18) L 01/09/19 04:13 Creatinine 0.47 mg/dL (0.55-1.02) L 01/09/19 04:13 Est GFR (MDRD) Af Amer > 60 (>60) 01/09/19 04:13 Est GFR (MDRD) Non-Af > 60 (>60) 01/09/19 04:13 Glucose 102 mg/dL (65-99) H 01/09/19 04:13 Calcium 8.3 mg/dL (8.5-10.1) L 01/09/19 04:13 Corrected Calcium 9.7 mg/dL (8.5-10.1) 01/09/19 04:13 Magnesium 1.8 mg/dL (1.7-2.9) 01/08/19 04:12 Total Bilirubin 0.20 mg/dL (0.2-1.0) 01/09/19 04:13 AST 8 Units/L (15-37) L 01/09/19 04:13 ALT < 6 Units/L (12-78) L 01/09/19 04:13 Alkaline Phosphatase 55 Units/L (46-116) 01/09/19 04:13 Total Protein 6.1 g/dL (6.4-8.2) L 01/09/19 04:13 Albumin 2.3 g/dL (3.4-5.0) L 01/09/19 04:13 Globulin 3.8 g/dL (2.5-4.5) 01/09/19 04:13 Albumin/Globulin Ratio 0.6 Ratio (1.1-2.1) L 01/09/19 04:13 Amylase 23 Units/L (25-115) L 01/03/19 05:20 Lipase 39 Units/L (73-393) L 01/03/19 05:20 Specimen Type Catherized urine 01/03/19 02:30 Urine Color Yellow (YELLOW) 01/03/19 02:30 Urine Appearance Clear (CLEAR) 01/03/19 02:30 Urine pH 6.0 (5.0 - 8.0) 01/03/19 02:30 Ur Specific [place] 1.010 (1.000-1.030) 01/03/19 02:30 Urine Protein 2+ (NEGATIVE) 01/03/19 02:30 Urine Glucose (UA) Negative (NEGATIVE) 01/03/19 02:30 Urine Ketones 1+ (NEGATIVE) 01/03/19 02:30 Urine Occult Blood 5+ (NEGATIVE) 01/03/19 02:30 Urine Nitrite Negative (NEGATIVE) 01/03/19 02:30 Urine Bilirubin Negative (NEGATIVE) 01/03/19 02:30 Urine Urobilinogen Normal (NORMAL) 01/03/19 02:30 Ur Leukocyte Esterase 1+ (NEGATIVE) 01/03/19 02:30 Urine RBC 5-10 /HPF (NONE SEEN) 01/03/19 02:30 Urine WBC 0-2 /HPF (NONE SEEN) 01/03/19 02:30 Ur Squamous Epith Cells Rare /HPF (NEGATIVE) 01/03/19 02:30 Urine Bacteria Negative /HPF (NEGATIVE) 01/03/19 02:30 Ur Culture Indicated? No/not indicated 01/03/19 02:30 Cytology Specimen To follow 01/05/19 15:02 - Assessment and Plan 1: s/p drainage of pelvic abscess .(diverticular abscess ). s/p laparotomy , small bowel resection. gastric ulcer . on IV ATB ,IV Protonix and oral Carafate . will keep the drain for now . repeat bdominal CT in 2 days. same IVF and ATB - Problem Patient Problems: Patient Problems Hypokalemia (Acute) E87.6 Abdominal pain (Acute) R10.9 Abdominal mass (Acute) R19.00 Dehydration (Acute) E86.0 Status post intestinal bypass or anastomosis (Acute) Z98.0 Abdominal abscess (Acute) Abdominal pain (Acute) R10.9
[2019-01-10] MEDS: NORCO 5/325 MG TAB PO PRN ×2 (03:00→08:16)
[2019-01-10] MEDS: NS + KCL 20 MEQ/L 1,000 ML IV SCH ×3 (03:20→06:10)
[2019-01-10] MEDS: FLAGYL IV PREMIX 500 MG BAG 500 MG/100 ML BAG IV SCH ×2 (03:20→08:22)
[2019-01-10] MEDS: DILAUDID INJ IVP PRN ×2 (05:00→11:40)
[2019-01-10] MEDS: ZOFRAN INJ 4 MG VIAL IVP PRN (05:00)
[2019-01-10] MEDS: FORTAZ or TAZICEF VIAL INJ IVP SCH (05:00)
[2019-01-10 05:09] LABS: BASOPHILS % (AUTO) 0.5 % (0.2-1.0); EOSINOPHILS # (AUTO) 0.4 x10^3/uL (0.0-0.2); EOSINOPHILS % (AUTO) 4.3 % (0.9-2.9); HEMATOCRIT 30.6 % (36.0-47.0); HEMOGLOBIN 10.3 g/dL (12.0-16.0); LYMPHOCYTES # (AUTO) 1.3 X10^3/uL (1.3-2.9); LYMPHOCYTES % (AUTO) 15.4 % (21.0-51.0); MEAN CORPUSCULAR HEMOGLOBIN 28.1 pg (27.0-34.0); MEAN CORPUSCULAR HGB CONC 33.5 g/dL (33.0-35.0); MEAN CORPUSCULAR VOLUME 83.7 fL (80.0-100.0); MEAN PLATELET VOLUME 7.1 fL (7.4-11.0); MONOCYTES # (AUTO) 0.9 x10^3/uL (0.3-0.8); MONOCYTES % (AUTO) 10.9 % (0.0-13.0); NEUTROPHILS # (AUTO) 5.7 x10^3/uL (2.2-4.8); NEUTROPHILS % (AUTO) 68.9 % (42.0-75.0); PLATELET COUNT 464 X10^3/uL (150.0-450.0); RED BLOOD COUNT 3.65 X10^6/uL (3.5-5.4); WHITE BLOOD COUNT 8.3 X10^3/uL (3.6-10.0)
[2019-01-10 05:24] LABS: ALANINE AMINOTRANSFERASE < 6 Units/L (12-78); ALBUMIN 2.3 g/dL (3.4-5.0); ALKALINE PHOSPHATASE 53 Units/L (46-116); ASPARTATE AMINO TRANSFERASE 8 Units/L (15-37); BLOOD UREA NITROGEN 2 mg/dL (7-18); CALCIUM 8.5 mg/dL (8.5-10.1); CHLORIDE 104 mmol/L (98-107); COR CA(FOR HYPOALB) 9.9 mg/dL (8.5-10.1); CREATININE 0.47 mg/dL (0.55-1.02); SODIUM 140 mmol/L (136-145); TOTAL PROTEIN 5.9 g/dL (6.4-8.2); eGFR NON BLACK RACES > 60 (>60)
[2019-01-10] MEDS: CARAFATE PO SCH ×2 (06:07→11:17)
[2019-01-10] MEDS: K-DUR TAB 20 MEQ PO PRN (08:16)
[2019-01-10] MEDS: CYMBALTA PO SCH (08:17)
[2019-01-10] MEDS: LOVENOX INJ 30 MG SYR SC SCH (08:18)
[2019-01-10] MEDS: MAGNESIUM SULFATE 1 GRAM/100 mL PREMIX 1 GM/100 ML BAG IV PRN ×2 (08:20→10:00)
[2019-01-10] MEDS: LEVAQUIN PREMIX IV 500 MG 500 MG/100 ML BAG IV SCH (08:21)
--- NOTE | 2019-01-10 08:24 | PCM.PROG ---
Progress Note - Progress Note for Day of Date of Exam: 01/09/19 - Subjective Subjective: IS BEING TREATED FOR SEVERE ABDOMINAL PAIN, SEVERE WEAKNESS, AND DECREASED APPETITE FOLLOWING RECENT DRAINAGE OF PELVIC ABSCESS, LYSIS OF EXTENSIVE ABDOMINAL ADHESIONS, AND TREATMENT FOR A PARTIAL SMALL BOWEL RESECTION X 2 WITH END TO END ANASTOMOSIS. A CT GUIDED ASPIRATION WAS PERFORMED ON 01/05 AND CATHETER WAS LEFT IN PLACE FOR DRAINAGE OF ABSCESS. TODAY, SHE IS ALERT AND ORIENTED, LYING IN BED ON MORNING ROUNDS. SHE CONTINUES WITH COMPLAINTS OF ABDOMINAL PAIN AND WEAKNESS, BUT CONTINUES TO REPORT SLIGHT IMPROVEMENT. ON EXAMINATION, HEART IS REGULAR IN RATE AND RHYTHM. BILATERAL LUNGS ARE NOTED WITH DIMINISHED LUNG SOUNDS THROUGHOUT. ABDOMEN IS ROUND, SOFT, AND CONTINUES WITH MILD ABDOMINAL PAIN. HYPOACTIVE BOWEL SOUNDS NOTED. SHE IS NOTED WITH A DRAIN TO RIGHT SIDE ABDOMEN. THERE CONTINUES TO BE MODERATE DRAINAGE NOTED IN BAG. HER VITALS THIS MORNING ARE: 98.0-102-20-93%-127/66. LABS WERE OBTAINED. ABNORMAL LAB VALUES INCLUDE THE FOLLOWING: RBC 10.3, HCT 31.1, BUN 3, CREATININE 0.47, GLUCOSE 102, CALCIUM 8.3, AST 8, ALT <6, TOTAL PROTEIN 6.1, ALBUMIN 2.3. AN ABDOMEN/PELVIS CT WAS OBTAINED THIS MORNING AND REVEALED: Decrease in size of the patient's pelvic abscess status post percutaneous drainage as described above. No change bibasilar atelectatic changes and bilateral pleural effusions. SHE IS CURRENTLY RECEIVING IV LEVAQUIN, IV FORTAZ, NORMAL SALINE WITH 20MEQ KCL AT 125ML/HR, DILAUDID AND NORCO FOR PAIN CONTROL, AND PHENERGAN 12.5MG IM Q6H PRN NAUSEA. WE WILL CONTINUE WITH CURRENT PLAN OF CARE TODAY. OTHERWISE, WE PLAN TO FOLLOW UP WITH AM LABS AND CONTINUE TO MONITOR. - Past Medical Family Social History Past Med/Fam/Surg Hx: No changes since H&P (h/o large distal gastric ulcer .) Allergies: Allergies Penicillins Allergy (Verified 12/14/18 05:11) - Review of Systems ROS: No change since H&P - Vital Signs and I&O's Vital Signs: Temperature 98.3 F Pulse Rate [Left Brachial] 88 Pulse Rate 80 Respiratory Rate 18 Blood Pressure [Right Arm] 108/61 Blood Pressure [Left Arm] 108/58 Blood Pressure 122/58 O2 Sat by Pulse Oximetry 94 Intake and Output: Intake & Output 01/07/19 01/08/19 01/09/19 01/10/19 11:59 11:59 11:59 11:59 Intake Total 1180 / 1180 3230 / 3230 3480 / 3480 2360 / 2360 Output Total 3550 / 3550 Balance 1180 / 1180 3230 / 3230 3480 / 3480 -1190 / -1190 - Physical Exam Oriented: Normal Eyes: Normal Ear: Normal Nose: Normal Throat: Normal Respiratory: Normal Cardiovascular: Normal : Normal Auscultation: Bowel Sounds: Decreased Palpation: Normal Tenderness: Mild, Other (lower abdominal tenderness , BS+) Skin: Normal Musculoskeletal: Normal Psychiatric: Normal Mood Description: Calm Speech Pattern: Clear, Appropriate - Laboratory and Diagnostics Result Diagrams: 01/10/19 03:56 01/10/19 03:56 Labs: 01/05/19 15:02 Peritoneal Fluid Gram Stain - Final 01/05/19 15:02 Peritoneal Fluid - Final Staphylococcus Epidermidis Laboratory WBC 8.3 X10^3/uL (3.6-10.0) 01/10/19 03:56 RBC 3.65 X10^6/uL (3.5-5.4) 01/10/19 03:56 Hgb 10.3 g/dL (12.0-16.0) L 01/10/19 03:56 Hct 30.6 % (36.0-47.0) L 01/10/19 03:56 MCV 83.7 fL (80.0-100.0) 01/10/19 03:56 MCH 28.1 pg (27.0-34.0) 01/10/19 03:56 MCHC 33.5 g/dL (33.0-35.0) 01/10/19 03:56 RDW 17.0 % (11.6-16.5) H 01/10/19 03:56 Plt Count 464 X10^3/uL (150.0-450.0) H 01/10/19 03:56 Plt Count Comment Adequate (ADEQUATE) 01/09/19 04:13 MPV 7.1 fL (7.4-11.0) L 01/10/19 03:56 Neut % (Auto) 68.9 % (42.0-75.0) 01/10/19 03:56 Lymph % (Auto) 15.4 % (21.0-51.0) L 01/10/19 03:56 [place] % (Auto) 10.9 % (0.0-13.0) 01/10/19 03:56 Eos % (Auto) 4.3 % (0.9-2.9) H 01/10/19 03:56 Baso % (Auto) 0.5 % (0.2-1.0) 01/10/19 03:56 Neut # (Auto) 5.7 x10^3/uL (2.2-4.8) H 01/10/19 03:56 Lymph # (Auto) 1.3 X10^3/uL (1.3-2.9) 01/10/19 03:56 [place] # (Auto) 0.9 x10^3/uL (0.3-0.8) H 01/10/19 03:56 Eos # (Auto) 0.4 x10^3/uL (0.0-0.2) H 01/10/19 03:56 Baso # (Auto) 0.0 X10^3/uL (0.0-0.1) 01/10/19 03:56 Absolute Nucleated RBC 0.0 /100WBC 01/10/19 03:56 Total Counted 100 01/09/19 04:13 Neutrophils % (Manual) 58 % (39-76) 01/09/19 04:13 Lymphocytes % (Manual) 35 % (13-43) 01/09/19 04:13 Monocytes % (Manual) 7 % (4-9) 01/09/19 04:13 Plt Morphology Comment Normal (NORMAL) 01/09/19 04:13 RBC Morphology Normal (NORMAL) 01/09/19 04:13 PT 15.8 SECONDS (11.8-14.3) 01/05/19 05:05 INR Target Range - 01/05/19 05:05 INR 1.31 (0.8-1.3) H 01/05/19 05:05 Sodium 140 mmol/L (136-145) 01/10/19 03:56 Corrected Sodium TNP 01/10/19 03:56 Potassium 3.6 mmol/L (3.5-5.1) 01/10/19 03:56 Chloride 104 mmol/L (98-107) 01/10/19 03:56 Carbon Dioxide 28.0 mmol/L (21-32) 01/10/19 03:56 BUN 2 mg/dL (7-18) L 01/10/19 03:56 Creatinine 0.47 mg/dL (0.55-1.02) L 01/10/19 03:56 Est GFR (MDRD) Af Amer > 60 (>60) 01/10/19 03:56 Est GFR (MDRD) Non-Af > 60 (>60) 01/10/19 03:56 Glucose 103 mg/dL (65-99) H 01/10/19 03:56 Calcium 8.5 mg/dL (8.5-10.1) 01/10/19 03:56 Corrected Calcium 9.9 mg/dL (8.5-10.1) 01/10/19 03:56 Magnesium 1.5 mg/dL (1.7-2.9) L 01/10/19 03:56 Total Bilirubin 0.20 mg/dL (0.2-1.0) 01/10/19 03:56 AST 8 Units/L (15-37) L 01/10/19 03:56 ALT < 6 Units/L (12-78) L 01/10/19 03:56 Alkaline Phosphatase 53 Units/L (46-116) 01/10/19 03:56 Total Protein 5.9 g/dL (6.4-8.2) L 01/10/19 03:56 Albumin 2.3 g/dL (3.4-5.0) L 01/10/19 03:56 Globulin 3.6 g/dL (2.5-4.5) 01/10/19 03:56 Albumin/Globulin Ratio 0.6 Ratio (1.1-2.1) L 01/10/19 03:56 Amylase 23 Units/L (25-115) L 01/03/19 05:20 Lipase 39 Units/L (73-393) L 01/03/19 05:20 Specimen Type Catherized urine 01/03/19 02:30 Urine Color Yellow (YELLOW) 01/03/19 02:30 Urine Appearance Clear (CLEAR) 01/03/19 02:30 Urine pH 6.0 (5.0 - 8.0) 01/03/19 02:30 Ur Specific [place] 1.010 (1.000-1.030) 01/03/19 02:30 Urine Protein 2+ (NEGATIVE) 01/03/19 02:30 Urine Glucose (UA) Negative (NEGATIVE) 01/03/19 02:30 Urine Ketones 1+ (NEGATIVE) 01/03/19 02:30 Urine Occult Blood 5+ (NEGATIVE) 01/03/19 02:30 Urine Nitrite Negative (NEGATIVE) 01/03/19 02:30 Urine Bilirubin Negative (NEGATIVE) 01/03/19 02:30 Urine Urobilinogen Normal (NORMAL) 01/03/19 02:30 Ur Leukocyte Esterase 1+ (NEGATIVE) 01/03/19 02:30 Urine RBC 5-10 /HPF (NONE SEEN) 01/03/19 02:30 Urine WBC 0-2 /HPF (NONE SEEN) 01/03/19 02:30 Ur Squamous Epith Cells Rare /HPF (NEGATIVE) 01/03/19 02:30 Urine Bacteria Negative /HPF (NEGATIVE) 01/03/19 02:30 Ur Culture Indicated? No/not indicated 01/03/19 02:30 Cytology Specimen To follow 01/05/19 15:02 - Plan (1) Abdominal abscess Status: Acute Plan: IV ANTIBIOTICS, STATUS POST CT GUIDED ASPIRATION OF ABSCESS WITH CATHETER IN PLACE FOR DRAINAGE OF ABSCESS, CONTINUE TO MONITOR, REPEAT ABDOMEN/PELVIS CT ON WEDNESDAY (2) Abdominal pain Status: Acute Qualifiers: Abdominal location: generalized Qualified Code(s): R10.84 - Generalized abdominal pain Plan: IV ANTIBIOTICS, STATUS POST CT GUIDED ASPIRATION OF ABSCESS, CONTINUE TO MONITOR (3) Status post intestinal bypass or anastomosis Status: Acute (4) Hypokalemia Status: Acute Plan: NORMAL SALINE WITH 20MEQ KCL AT 125ML/HR, POTASSIUM REPLACEMENT PER PROTOCOL (5) Hypomagnesemia Status: Acute Plan: MAGNESIUM REPLACEMENT PER PROTOCOL, CONTINUE TO MONITOR (6) Dehydration Status: Acute Plan: NORMAL SALINE WITH 20MEQ KCL AT 125ML/HR
[2019-01-10] MEDS: NADOLOL 10 MG PO SCH (11:15)
--- NOTE | 2019-01-10 11:15 | DR.PROGNOT ---
Hospital Progress Notes - Progress Note for Day of: Progress Note Date: 01/10/19 - Chief Complaint Chief Complaint: still having moderate amount of drainage in the drainage bag . lower abdominal pain and pain at catheter site. no nausea or vomiting today . afebrile with normal WBC . - Past Medical Family Social History Past Med/Fam/Surg Hx: No changes since H&P (h/o large distal gastric ulcer .) Allergies: Allergies Penicillins Allergy (Verified 12/14/18 05:11) - Review Of Systems ROS: No change since H&P - Vital Signs Vital Signs: Temperature 98.3 F Pulse Rate [Left Brachial] 88 Pulse Rate 80 Respiratory Rate 18 Blood Pressure [Right Arm] 108/61 Blood Pressure [Left Arm] 108/58 Blood Pressure 122/58 O2 Sat by Pulse Oximetry 94 - Physical Exam Oriented: Normal Eyes: Normal Ear: Normal Nose: Normal Throat: Normal Respiratory: Normal Cardiovascular: Normal : Normal GI:Auscultation: Decreased GI:Palpation: Normal GI: Tenderness: Mild, Other (lower abdominal tenderness , BS+) Skin: Normal Musculoskeletal: Normal Psychiatric: Normal Mood Description: Calm Speech Pattern: Clear, Appropriate - Laboratory and Diagnostics Result Diagrams: 01/10/19 03:56 01/10/19 03:56 Labs: 01/05/19 15:02 Peritoneal Fluid Gram Stain - Final 01/05/19 15:02 Peritoneal Fluid - Final Staphylococcus Epidermidis Laboratory WBC 8.3 X10^3/uL (3.6-10.0) 01/10/19 03:56 RBC 3.65 X10^6/uL (3.5-5.4) 01/10/19 03:56 Hgb 10.3 g/dL (12.0-16.0) L 01/10/19 03:56 Hct 30.6 % (36.0-47.0) L 01/10/19 03:56 MCV 83.7 fL (80.0-100.0) 01/10/19 03:56 MCH 28.1 pg (27.0-34.0) 01/10/19 03:56 MCHC 33.5 g/dL (33.0-35.0) 01/10/19 03:56 RDW 17.0 % (11.6-16.5) H 01/10/19 03:56 Plt Count 464 X10^3/uL (150.0-450.0) H 01/10/19 03:56 Plt Count Comment Adequate (ADEQUATE) 01/09/19 04:13 MPV 7.1 fL (7.4-11.0) L 01/10/19 03:56 Neut % (Auto) 68.9 % (42.0-75.0) 01/10/19 03:56 Lymph % (Auto) 15.4 % (21.0-51.0) L 01/10/19 03:56 [place] % (Auto) 10.9 % (0.0-13.0) 01/10/19 03:56 Eos % (Auto) 4.3 % (0.9-2.9) H 01/10/19 03:56 Baso % (Auto) 0.5 % (0.2-1.0) 01/10/19 03:56 Neut # (Auto) 5.7 x10^3/uL (2.2-4.8) H 01/10/19 03:56 Lymph # (Auto) 1.3 X10^3/uL (1.3-2.9) 01/10/19 03:56 [place] # (Auto) 0.9 x10^3/uL (0.3-0.8) H 01/10/19 03:56 Eos # (Auto) 0.4 x10^3/uL (0.0-0.2) H 01/10/19 03:56 Baso # (Auto) 0.0 X10^3/uL (0.0-0.1) 01/10/19 03:56 Absolute Nucleated RBC 0.0 /100WBC 01/10/19 03:56 Total Counted 100 01/09/19 04:13 Neutrophils % (Manual) 58 % (39-76) 01/09/19 04:13 Lymphocytes % (Manual) 35 % (13-43) 01/09/19 04:13 Monocytes % (Manual) 7 % (4-9) 01/09/19 04:13 Plt Morphology Comment Normal (NORMAL) 01/09/19 04:13 RBC Morphology Normal (NORMAL) 01/09/19 04:13 PT 15.8 SECONDS (11.8-14.3) 01/05/19 05:05 INR Target Range - 01/05/19 05:05 INR 1.31 (0.8-1.3) H 01/05/19 05:05 Sodium 140 mmol/L (136-145) 01/10/19 03:56 Corrected Sodium TNP 01/10/19 03:56 Potassium 3.6 mmol/L (3.5-5.1) 01/10/19 03:56 Chloride 104 mmol/L (98-107) 01/10/19 03:56 Carbon Dioxide 28.0 mmol/L (21-32) 01/10/19 03:56 BUN 2 mg/dL (7-18) L 01/10/19 03:56 Creatinine 0.47 mg/dL (0.55-1.02) L 01/10/19 03:56 Est GFR (MDRD) Af Amer > 60 (>60) 01/10/19 03:56 Est GFR (MDRD) Non-Af > 60 (>60) 01/10/19 03:56 Glucose 103 mg/dL (65-99) H 01/10/19 03:56 Calcium 8.5 mg/dL (8.5-10.1) 01/10/19 03:56 Corrected Calcium 9.9 mg/dL (8.5-10.1) 01/10/19 03:56 Magnesium 1.5 mg/dL (1.7-2.9) L 01/10/19 03:56 Total Bilirubin 0.20 mg/dL (0.2-1.0) 01/10/19 03:56 AST 8 Units/L (15-37) L 01/10/19 03:56 ALT < 6 Units/L (12-78) L 01/10/19 03:56 Alkaline Phosphatase 53 Units/L (46-116) 01/10/19 03:56 Total Protein 5.9 g/dL (6.4-8.2) L 01/10/19 03:56 Albumin 2.3 g/dL (3.4-5.0) L 01/10/19 03:56 Globulin 3.6 g/dL (2.5-4.5) 01/10/19 03:56 Albumin/Globulin Ratio 0.6 Ratio (1.1-2.1) L 01/10/19 03:56 Amylase 23 Units/L (25-115) L 01/03/19 05:20 Lipase 39 Units/L (73-393) L 01/03/19 05:20 Specimen Type Catherized urine 01/03/19 02:30 Urine Color Yellow (YELLOW) 01/03/19 02:30 Urine Appearance Clear (CLEAR) 01/03/19 02:30 Urine pH 6.0 (5.0 - 8.0) 01/03/19 02:30 Ur Specific [place] 1.010 (1.000-1.030) 01/03/19 02:30 Urine Protein 2+ (NEGATIVE) 01/03/19 02:30 Urine Glucose (UA) Negative (NEGATIVE) 01/03/19 02:30 Urine Ketones 1+ (NEGATIVE) 01/03/19 02:30 Urine Occult Blood 5+ (NEGATIVE) 01/03/19 02:30 Urine Nitrite Negative (NEGATIVE) 01/03/19 02:30 Urine Bilirubin Negative (NEGATIVE) 01/03/19 02:30 Urine Urobilinogen Normal (NORMAL) 01/03/19 02:30 Ur Leukocyte Esterase 1+ (NEGATIVE) 01/03/19 02:30 Urine RBC 5-10 /HPF (NONE SEEN) 01/03/19 02:30 Urine WBC 0-2 /HPF (NONE SEEN) 01/03/19 02:30 Ur Squamous Epith Cells Rare /HPF (NEGATIVE) 01/03/19 02:30 Urine Bacteria Negative /HPF (NEGATIVE) 01/03/19 02:30 Ur Culture Indicated? No/not indicated 01/03/19 02:30 Cytology Specimen To follow 01/05/19 15:02 - Assessment and Plan 1: s/p drainage of pelvic abscess .(diverticular abscess ). s/p laparotomy , small bowel resection. gastric ulcer . on IV ATB ,IV Protonix and oral Carafate . will keep the drain for now . repeat bdominal CT in 2 days. same IVF and ATB. to follow in 2 days in the office - Problem Patient Problems: Patient Problems Hypokalemia (Acute) E87.6 Abdominal pain (Acute) R10.9 Abdominal mass (Acute) R19.00 Dehydration (Acute) E86.0 Status post intestinal bypass or anastomosis (Acute) Z98.0 Abdominal abscess (Acute) Abdominal pain (Acute) R10.9
[2019-01-10 12:46] VITALS: BP 114/63
== END 2019-01-10 14:10 | disposition home health service (06) | DRG 907 ==
LOC: ER 19:14 → MED/SURG 19:14
PROVIDERS: ADMIT Obstetrics & Gynecology Obstetrics; ATTEND Internal Medicine
DX: Z98.0 Intestinal bypass and anastomosis status; K65.1 Peritoneal abscess; T81.89XA Other complications of procedures, not elsewhere classified, initial encounter; R10.84 Generalized abdominal pain; R19.00 Intra-abdominal and pelvic swelling, mass and lump, unspecified site; J90 Pleural effusion, not elsewhere classified; E87.6 Hypokalemia; K57.32 Diverticulitis of large intestine without perforation or abscess without bleeding
CPT/HCPCS: 36415; 74000; 74018; 74176; 74177; 77012; 80053; 81001; 82150; 83690; 83735; 84132; 85025; 85610; 87070; 87077; 87186; 87205; 96365; 96367; 96374; 96375; 97110; 97116; 97162; 97166; 97530; 97535; 99284; A4222; S0030; G0378; J0713; J1170; J1642; J1650; J1885; J1956; J2250; J2405; J2550; J2704; J3475; J3480; J7030; J7050

== ENCOUNTER 2019-03-03 13:22 | Inpatient (IN) ==
[2019-03-03 13:27] VITALS: BMI 15.8
--- NOTE | 2019-03-03 13:53 | ED.ABDFE ---
HPI Time Seen Time Seen by Provider: 03/03/19 13:45 PCP Primary Care Physician: NAVDEEP HPI Comment HPI Comment: ABDOMINAL PAIN, NAUSEA, VOMITING, DIARRHEA AND GENERALIZED WEAKNESS TIMES 2 DAYS. RECENT ABDOMINAL SURGERY FOR DIVERTICULITIS WITH ABSCESS. ABDOMINAL PAIN IS SHARP AND CRAMPING. 10 RADIATING TO BACK. NO FEVER OR DYSURIA. Complaint Doctors Chief Complaint Comments: ABDOMINAL PAIN, NAUSEA, VOMITING AND DIARRHEA WITH GENERALIZED WEAKNESS TIMES 3 DAYS. Chief Complaint:: PT. C/O ABDOMINAL PAIN X 2-3 DAYS WELL N/V/D AND WEAKNESS. Reviewed Nurses Notes Review: Yes Source History Provided: Patient Mode of arrival Mode of Arrival: Wheelchair Timing Onset of Chief Complaint: 02/28/19 Came on: Gradually Duration Since Onset: Constant Location Location: Diffuse Quality Quality: Cramping and Sharp Context History of: Abdominal surgery Modifying factors Worsening Factors: Exertion and Food Improving Factors: Lying Still Associated signs and symptoms Associated Signs and Symptoms: Nausea and Vomiting PMH PMH Past Medical History: Yes Past Medical History: Anemia, Arthritis, Depression and GERD Past Medical History Comment: DIVERTICULITIS Past Surgical History: Yes Surgical History: Appendectomy and Bowel Resection Family History History of Family Medical Conditions: Yes Family Medical History: Diabetes Mellitus, Heart Failure and Sudden Cardiac Social History Does patient currently use any type of tobacco product: Yes Have you used tobacco products in the last 12 months: Yes Type of Tobacco Use: Cigarettes Does any household member use tobacco: No Alcohol Use: None Do you use any recreational Drugs:: No Lives With: Alone Lives Where: Home infectious screening In the last 2 months have you had wt loss of >10#?: NO Have you had fever, night sweats or hemotysis?: No Have you traveled outside the country in the last 6 months?: No Isolation: Standard ROS Review of Systems Constitutional: See HPI, Weakness and Fatigue; negative Chills and Fever Eyes: No Symptoms Reported and See HPI ENTM: No Symptoms Reported, See HPI and Nose Congestion; negative Ear Pain, Nose Discharge and Throat Pain Respiratoy: No Symptoms Reported, See HPI, Non-Productive Cough and Short of Breath; negative Wheezing Cardiovascular: No Symptoms Reported and See HPI; negative Chest Pain, Edema and Palpitations Gastrointestinal/Abdominal: See HPI, Abdominal Pain, Diarrhea, Nausea and Vomiting; negative Constipation Genitourinary: See HPI and Pain; negative Dysuria, Frequency and Hematuria Neurological: No Symptoms Reported and See HPI; negative Headache and Dizziness Musculoskeletal: See HPI, Back Pain and Muscle Pain Integumentary: See HPI; negative Change in Color, Rash and Juandice Hematologic/Lymphatic: No Symptoms Reported and See HPI; negative Easy Bruising and Swollen Glands Endocrine: No Symptoms Reported and See HPI Psychiatric: No Symptoms Reported PE Vital Signs Vitals: Temperature 98.2 F Pulse Rate [Left Brachial] 75 Pulse Rate 86 Respiratory Rate 20 Blood Pressure [Right Arm] 108/61 Blood Pressure [Left Arm] 129/56 Blood Pressure 104/52 O2 Sat by Pulse Oximetry 95 General Limitations: No Limitations General Appearance: Alert and In No Apparent Distress Head Head Exam: Normal Inspection and Atraumatic Eyes Eye exam: Normal Appearance, PERRL and EOMI; negative Scleral Icterus and Conjunctival Injection ENT ENT Exam: Normal Exam, Normal Oropharynx, Normal External Ear Exam and TM's Normal Bilaterally Neck Neck Exam: Normal Inspection, Full ROM and Trachea Midline Chest Chest Inspection: Symmetric Chest Wall Rise Respiratory Respiratory Exam: Normal Lung Sounds Bilat; negative Accessory Muscle Use, Chest Wall Tenderness and Respiratory Distress Respiratory Exam: Bilateral: Clear to Auscultation Cardiovascular Cardiovascular Exam: Regular Rate, Normal Rhythm and Normal Heart Sounds; neg ative Systolic Murmur and Diastolic Murmur Abdominal Exam Abdominal Exam: Normal Bowel Sounds, Soft and Tenderness Abdominal Tenderness: Diffuse and Moderate Rectal Rectal Exam: Deferred Back Back Exam: Normal Inspection Extremeties Extremities Exam: Normal Inspection and Normal Capillary Refill; negative Tenderness, Edema and Calf Tenderness External Exam: Female: Deferred : Speculum Exam (Female): Deferred : Bimanual Exam (female): Deferred Neurologic Neurological Exam: Alert, Oriented X3 and CN II-XII Intact; negative Motor Sensory Deficit Psychiatric Psychiatric Exam: Normal Affect and Normal Mood Skin Skin Exam: Dry MDM Differential Diagnosis Differential Diagnosis- Considerations may include:: Bowel Obstruction, Gastritus/PUD, Gastroenteritis, Inflammatory BD, Urinary tract infection and Urolithiasis COURSE Treatment Treatment: SEE ORDERS. Consultation Consultation Comments: PATIENT ADMITTED TO DR. RUCKER. Education/Counseling Education/Counseling: Patient and Family ROR Labs Reviewed Laboratory Results Reviewed?: Yes Result Diagrams: 03/09/19 04:47 03/09/19 04:47 Laboratory: 03/03/19 14:11 Blood Blood Culture - Final WBC 5.4 X10^3/uL (3.6-10.0) 03/05/19 04:46 RBC 3.72 X10^6/uL (3.5-5.4) 03/05/19 04:46 Hgb 10.9 g/dL (12.0-16.0) L 03/05/19 04:46 Hct 32.5 % (36.0-47.0) L 03/05/19 04:46 MCV 87.4 fL (80.0-100.0) 03/05/19 04:46 MCH 29.4 pg (27.0-34.0) 03/05/19 04:46 MCHC 33.7 g/dL (33.0-35.0) 03/05/19 04:46 RDW 17.8 % (11.6-16.5) H 03/05/19 04:46 Plt Count 297 X10^3/uL (150.0-450.0) 03/05/19 04:46 MPV 7.3 fL (7.4-11.0) L 03/05/19 04:46 Neut % (Auto) 56.3 % (42.0-75.0) 03/05/19 04:46 Lymph % (Auto) 24.5 % (21.0-51.0) 03/05/19 04:46 [place] % (Auto) 17.9 % (0.0-13.0) H 03/05/19 04:46 Eos % (Auto) 0.9 % (0.9-2.9) 03/05/19 04:46 Baso % (Auto) 0.4 % (0.2-1.0) 03/05/19 04:46 Neut # (Auto) 3.0 x10^3/uL (2.2-4.8) 03/05/19 04:46 Lymph # (Auto) 1.3 X10^3/uL (1.3-2.9) 03/05/19 04:46 [place] # (Auto) 1.0 x10^3/uL (0.3-0.8) H 03/05/19 04:46 Eos # (Auto) 0.0 x10^3/uL (0.0-0.2) 03/05/19 04:46 Baso # (Auto) 0.0 X10^3/uL (0.0-0.1) 03/05/19 04:46 Absolute Nucleated RBC 0.1 /100WBC 03/05/19 04:46 Sodium 138 mmol/L (136-145) 03/05/19 04:46 Corrected Sodium TNP 03/05/19 04:46 Potassium 3.6 mmol/L (3.5-5.1) 03/05/19 04:46 Chloride 103 mmol/L (98-107) 03/05/19 04:46 Carbon Dioxide 24.6 mmol/L (21-32) 03/05/19 04:46 BUN 5 mg/dL (7-18) L 03/05/19 04:46 Creatinine 0.46 mg/dL (0.55-1.02) L 03/05/19 04:46 Est GFR (MDRD) Af Amer > 60 (>60) 03/05/19 04:46 Est GFR (MDRD) Non-Af > 60 (>60) 03/05/19 04:46 Glucose 103 mg/dL (65-99) H 03/05/19 04:46 Lactic Acid 3.0 mmol/L (0.4-2.0) H 03/03/19 14:11 Calcium 8.6 mg/dL (8.5-10.1) 03/05/19 04:46 Corrected Calcium 10.3 mg/dL (8.5-10.1) H 03/05/19 04:46 Magnesium 1.5 mg/dL (1.7-2.9) L 03/05/19 04:46 Total Bilirubin 0.30 mg/dL (0.2-1.0) 03/05/19 04:46 AST 12 Units/L (15-37) L 03/05/19 04:46 ALT < 6 Units/L (12-78) L 03/05/19 04:46 Alkaline Phosphatase 93 Units/L (46-116) 03/05/19 04:46 Total Protein 5.9 g/dL (6.4-8.2) L 03/05/19 04:46 Albumin 1.9 g/dL (3.4-5.0) L 03/05/19 04:46 Globulin 4.0 g/dL (2.5-4.5) 03/05/19 04:46 Albumin/Globulin Ratio 0.5 Ratio (1.1-2.1) L 03/05/19 04:46 Amylase 22 Units/L (25-115) L 03/04/19 04:43 Lipase 34 Units/L (73-393) L 03/04/19 04:43 Specimen Type Clean catch urine 03/03/19 23:55 Urine Color Yellow (YELLOW) 03/03/19 23:55 Urine Appearance Clear (CLEAR) 03/03/19 23:55 Urine pH 5.0 (5.0 - 8.0) 03/03/19 23:55 Ur Specific [place] 1.020 (1.000-1.030) 03/03/19 23:55 Urine Protein Negative (NEGATIVE) 03/03/19 23:55 Urine Glucose (UA) Negative (NEGATIVE) 03/03/19 23:55 Urine Ketones 1+ (NEGATIVE) 03/03/19 23:55 Urine Occult Blood 2+ (NEGATIVE) 03/03/19 23:55 Urine Nitrite Negative (NEGATIVE) 03/03/19 23:55 Urine Bilirubin Negative (NEGATIVE) 03/03/19 23:55 Urine Urobilinogen Normal (NORMAL) 03/03/19 23:55 Ur Leukocyte Esterase Negative (NEGATIVE) 03/03/19 23:55 Urine RBC 0-2 /HPF (0-3) 03/03/19 23:55 Urine WBC None seen /HPF (0-5) 03/03/19 23:55 Ur Squamous Epith Cells Moderate /HPF (NEGATIVE) 03/03/19 23:55 Urine Bacteria Negative /HPF (NEGATIVE) 03/03/19 23:55 Ur Culture Indicated? No/not indicated 03/03/19 23:55 XRAY XRAY Interpreted by: Radiologist XRAY Findings: REPORT NOTED AND DISCUSSED WITH PATIENT. Opioid Opioid Risk Tool Age (Ever box if 16-45): No History of Preadolescent Sexual Abuse: No Total: 0 Total Score Risk Category: Low Risk Copyright: Rolando MEJIA predicting aberrant behaviors Diagnosis Discharge Problem: Abdominal abscess Abdominal pain Qualifiers: Abdominal location: generalized Qualified Code(s): R10.84 - Generalized abdominal pain Instructions Instructions: Steps to Quit Smoking, Mydi-[id number] Abdominal Pain, Adult, Iddy-[id number] Nausea and Vomiting, Adult, [id number] Food Choices to Help Relieve Diarrhea, Adult Hypertension, Lali-tg-Hxai Diarrhea, Adult, [id number] Forms: Patient Portal
[2019-03-03] MEDS ORDERED: DEMEROL INJ IVP ONE (13:55)
[2019-03-03] MEDS ORDERED: ZOFRAN INJ 4 MG VIAL IVP ONE (13:55)
[2019-03-03] MEDS: NS 1000 ML 1,000 ML IV SCH ×2 (14:18→23:00)
[2019-03-03] MEDS ORDERED: ZOFRAN INJ 4 MG VIAL ONE (14:19)
[2019-03-03] MEDS ORDERED: DEMEROL INJ ONE (14:19)
[2019-03-03 14:31] LABS: BASOPHILS # (AUTO) 0.1 X10^3/uL (0.0-0.1); BASOPHILS % (AUTO) 0.3 % (0.2-1.0); EOSINOPHILS % (AUTO) 0.1 % (0.9-2.9); HEMATOCRIT 42.2 % (36.0-47.0); HEMOGLOBIN 14.2 g/dL (12.0-16.0); LYMPHOCYTES # (AUTO) 2.1 X10^3/uL (1.3-2.9); LYMPHOCYTES % (AUTO) 13.9 % (21.0-51.0); MEAN CORPUSCULAR HEMOGLOBIN 28.8 pg (27.0-34.0); MEAN CORPUSCULAR HGB CONC 33.7 g/dL (33.0-35.0); MEAN CORPUSCULAR VOLUME 85.3 fL (80.0-100.0); MONOCYTES # (AUTO) 1.1 x10^3/uL (0.3-0.8); MONOCYTES % (AUTO) 7.4 % (0.0-13.0); NEUTROPHILS # (AUTO) 11.6 x10^3/uL (2.2-4.8); NEUTROPHILS % (AUTO) 78.3 % (42.0-75.0); PLATELET COUNT 435 X10^3/uL (150.0-450.0); RED BLOOD COUNT 4.95 X10^6/uL (3.5-5.4); RED CELL DISTRIBUTION WIDTH 18.5 % (11.6-16.5); WHITE BLOOD COUNT 14.8 X10^3/uL (3.6-10.0)
[2019-03-03 14:39] LABS: ALANINE AMINOTRANSFERASE 11 Units/L (12-78); ALBUMIN 2.9 g/dL (3.4-5.0); ALKALINE PHOSPHATASE 128 Units/L (46-116); AMYLASE 39 Units/L (25-115); ASPARTATE AMINO TRANSFERASE 14 Units/L (15-37); BLOOD UREA NITROGEN 14 mg/dL (7-18); CARBON DIOXIDE 22.9 mmol/L (21-32); CHLORIDE 94 mmol/L (98-107); COR CA(FOR HYPOALB) 10.9 mg/dL (8.5-10.1); CREATININE 0.68 mg/dL (0.55-1.02); LIPASE 40 Units/L (73-393); SODIUM 133 mmol/L (136-145); TOTAL PROTEIN 8.3 g/dL (6.4-8.2); eGFR NON BLACK RACES > 60 (>60)
[2019-03-03 14:40] LABS: MAGNESIUM 1.8 mg/dL (1.7-2.9)
--- NOTE | 2019-03-03 17:04 | CT ---
History: Abdominal pain history of diverticulitis and abscess Exam: CT abdomen and pelvis without contrast. Comparison: 01/19/2019 Technique: Axial spiral images were obtained from lung bases through the pubic symphysis without contrast. Automated dose control was utilized. Findings: The lung bases are clear . The liver is mildly enlarged with hypertrophy of the caudate and left lobes and a small 6 mm hypodensity in the left lobe which is unchanged . The spleen is mildly enlarged but unchanged. The gallbladder, pancreas, and bile ducts are normal . The adrenals are normal . The kidneys are normal size with no hydronephrosis, renal stone, or mass . There are surgical sutures scattered in the bowel along the lower abdomen bilaterally which is unchanged with no obvious bowel obstruction . The bladder is unremarkable. There is a moderate rounded area of soft tissue fullness in the midline of the lower pelvis extending superiorly along the dome of the bladder and into the mesentery which is not well delineated but was not seen previously . This is difficult to further delineate due to the fluid-filled loops of bowel surrounding the area. The area measures approximately 10 x 8 cm and appears to extend into the right adnexal region but cannot be further characterize due to the loops of unopacified bowel and surrounding the area . The bladder is unremarkable. There is mild presacral soft tissue fullness which is more prominent. The appendix is grossly unremarkable . There is no obvious free air or significant free fluid. The bones are intact. IMPRESSION: Very limited exam due to the lack of oral and IV contrast. Status post removal of the pigtail catheter from the right lower pelvis with in ill-defined 8-10 cm rounded area of soft tissue fullness seen along the right lower pelvis extending superiorly into the mesentery which which is more apparent but to further characterize due to the unopacified loops of bowel surrounding the area . This could represent a recurrent abscess or mass of other etiology but remains indeterminate . Recommend a follow-up CT scan with oral and IV contrast to further characterize the area. Post changes in the bowel along the lower abdomen which is unchanged with no obvious bowel obstruction. No hydronephrosis or renal stones. Mild hepatomegaly and chronic liver changes with a small hypodensity left lobe which is unchanged. Mild splenomegaly. Reported By:
[2019-03-03] MEDS: CIPRO IV 400 MG PREMIX* 400 MG/200 ML IV.SOLN. IV SCH ×2 (17:51→20:44)
[2019-03-03] MEDS: DEMEROL INJ IVP PRN (20:42)
[2019-03-03] MEDS: FLAGYL IV PREMIX 500 MG BAG 500 MG/100 ML BAG IV SCH (20:44)
[2019-03-04 00:24] LABS: BILIRUBIN,URINE NEGATIVE (NEGATIVE); BLOOD/HEMOGLOBIN,URINE 2+ (NEGATIVE); GLUCOSE, URINE NEGATIVE (NEGATIVE); KETONES,URINE 1+ (NEGATIVE); LEUKOCYTE ESTERASE ,URINE NEGATIVE (NEGATIVE); NITRITES,URINE NEGATIVE (NEGATIVE); PROTEIN,URINE NEGATIVE (NEGATIVE); UROBILINOGEN,URINE NORMAL (NORMAL)
[2019-03-04 00:35] LABS: APPEARANCE,URINE CLEAR (CLEAR); COLOR,URINE YELLOW (YELLOW)
[2019-03-04 00:37] LABS: BACTERIA,URINE NEGATIVE /HPF (NEGATIVE); RBC,URINE 0-2 /HPF (0-3); SQUAMOUS EPITHELIAL CELL,UR MODERATE /HPF (NEGATIVE)
[2019-03-04] MEDS: FLAGYL IV PREMIX 500 MG BAG 500 MG/100 ML BAG IV SCH ×4 (02:47→20:47)
[2019-03-04 05:01] LABS: BASOPHILS % (AUTO) 0.2 % (0.2-1.0); EOSINOPHILS % (AUTO) 0.4 % (0.9-2.9); HEMATOCRIT 33.5 % (36.0-47.0); LYMPHOCYTES # (AUTO) 1.5 X10^3/uL (1.3-2.9); LYMPHOCYTES % (AUTO) 15.7 % (21.0-51.0); MEAN CORPUSCULAR HGB CONC 33.6 g/dL (33.0-35.0); MEAN CORPUSCULAR VOLUME 86.5 fL (80.0-100.0); MEAN PLATELET VOLUME 7.1 fL (7.4-11.0); MONOCYTES # (AUTO) 1.1 x10^3/uL (0.3-0.8); NEUTROPHILS # (AUTO) 7.1 x10^3/uL (2.2-4.8); NEUTROPHILS % (AUTO) 72.7 % (42.0-75.0); PLATELET COUNT 335 X10^3/uL (150.0-450.0); RED BLOOD COUNT 3.87 X10^6/uL (3.5-5.4); RED CELL DISTRIBUTION WIDTH 17.7 % (11.6-16.5); WHITE BLOOD COUNT 9.8 X10^3/uL (3.6-10.0)
[2019-03-04 05:08] LABS: HEMOGLOBIN 11.3 g/dL (12.0-16.0)
[2019-03-04 05:12] LABS: ALANINE AMINOTRANSFERASE 7 Units/L (12-78); ALBUMIN 2.2 g/dL (3.4-5.0); ALKALINE PHOSPHATASE 94 Units/L (46-116); AMYLASE 22 Units/L (25-115); ASPARTATE AMINO TRANSFERASE 11 Units/L (15-37); BLOOD UREA NITROGEN 10 mg/dL (7-18); CALCIUM 8.9 mg/dL (8.5-10.1); CARBON DIOXIDE 23.5 mmol/L (21-32); CHLORIDE 100 mmol/L (98-107); COR CA(FOR HYPOALB) 10.3 mg/dL (8.5-10.1); LIPASE 34 Units/L (73-393); SODIUM 136 mmol/L (136-145); TOTAL PROTEIN 6.4 g/dL (6.4-8.2); eGFR NON BLACK RACES > 60 (>60)
[2019-03-04] MEDS: NS 1000 ML 1,000 ML IV SCH ×3 (05:28→22:28)
[2019-03-04] MEDS: CIPRO IV 400 MG PREMIX* 400 MG/200 ML IV.SOLN. IV SCH ×2 (10:54→20:46)
[2019-03-04] MEDS: PEPCID TAB 20 MG PO PRN ×2 (11:07→20:43)
--- NOTE | 2019-03-04 11:20 | DR.PROGNOT ---
Hospital Progress Notes - Progress Note for Day of: Progress Note Date: 03/04/19 - Chief Complaint Chief Complaint: still c/o moderate mid abdominal pain . no nausea or vomiting today . having loose BM , no bleeding . no fever this am . CBC , lytes , Amylase , Lipase and LFT all normal . abdominal and pelvic CT still showing collection in the pelvis could related to old diverticulitis . - Past Medical Family Social History Past Med/Fam/Surg Hx: No changes since H&P Allergies: Allergies morphine Allergy (Verified 03/03/19 13:27) Penicillins Allergy (Verified 03/03/19 13:27) - Review Of Systems ROS: No change since H&P - Vital Signs Vital Signs: Temperature 97.7 F Pulse Rate [Left Brachial] 69 Pulse Rate 86 Respiratory Rate 18 Blood Pressure [Right Arm] 108/61 Blood Pressure [Left Arm] 100/49 Blood Pressure 104/52 O2 Sat by Pulse Oximetry 97 - Physical Exam Oriented: Normal Eyes: Normal Ear: Normal Nose: Normal Cardiovascular: Normal : Normal GI:Auscultation: Normal GI: Tenderness: Diffuse (full abdomen with LLQ and midabdominal tenderness ) Speech Pattern: Clear, Appropriate - Laboratory and Diagnostics Result Diagrams: 03/04/19 04:43 03/04/19 04:43 Labs: Laboratory WBC 9.8 X10^3/uL (3.6-10.0) 03/04/19 04:43 RBC 3.87 X10^6/uL (3.5-5.4) 03/04/19 04:43 Hgb 11.3 g/dL (12.0-16.0) L D 03/04/19 04:43 Hct 33.5 % (36.0-47.0) L 03/04/19 04:43 MCV 86.5 fL (80.0-100.0) 03/04/19 04:43 MCH 29.0 pg (27.0-34.0) 03/04/19 04:43 MCHC 33.6 g/dL (33.0-35.0) 03/04/19 04:43 RDW 17.7 % (11.6-16.5) H 03/04/19 04:43 Plt Count 335 X10^3/uL (150.0-450.0) 03/04/19 04:43 MPV 7.1 fL (7.4-11.0) L 03/04/19 04:43 Neut % (Auto) 72.7 % (42.0-75.0) 03/04/19 04:43 Lymph % (Auto) 15.7 % (21.0-51.0) L 03/04/19 04:43 [place] % (Auto) 11.0 % (0.0-13.0) 03/04/19 04:43 Eos % (Auto) 0.4 % (0.9-2.9) L 03/04/19 04:43 Baso % (Auto) 0.2 % (0.2-1.0) 03/04/19 04:43 Neut # (Auto) 7.1 x10^3/uL (2.2-4.8) H 03/04/19 04:43 Lymph # (Auto) 1.5 X10^3/uL (1.3-2.9) 03/04/19 04:43 [place] # (Auto) 1.1 x10^3/uL (0.3-0.8) H 03/04/19 04:43 Eos # (Auto) 0.0 x10^3/uL (0.0-0.2) 03/04/19 04:43 Baso # (Auto) 0.0 X10^3/uL (0.0-0.1) 03/04/19 04:43 Absolute Nucleated RBC 0.1 /100WBC 03/04/19 04:43 Sodium 136 mmol/L (136-145) 03/04/19 04:43 Corrected Sodium TNP 03/04/19 04:43 Potassium 3.7 mmol/L (3.5-5.1) 03/04/19 04:43 Chloride 100 mmol/L (98-107) 03/04/19 04:43 Carbon Dioxide 23.5 mmol/L (21-32) 03/04/19 04:43 BUN 10 mg/dL (7-18) 03/04/19 04:43 Creatinine 0.60 mg/dL (0.55-1.02) 03/04/19 04:43 Est GFR (MDRD) Af Amer > 60 (>60) 03/04/19 04:43 Est GFR (MDRD) Non-Af > 60 (>60) 03/04/19 04:43 Glucose 82 mg/dL (65-99) 03/04/19 04:43 Lactic Acid 3.0 mmol/L (0.4-2.0) H 03/03/19 14:11 Calcium 8.9 mg/dL (8.5-10.1) 03/04/19 04:43 Corrected Calcium 10.3 mg/dL (8.5-10.1) H 03/04/19 04:43 Magnesium 1.8 mg/dL (1.7-2.9) 03/03/19 14:11 Total Bilirubin 0.40 mg/dL (0.2-1.0) 03/04/19 04:43 AST 11 Units/L (15-37) L 03/04/19 04:43 ALT 7 Units/L (12-78) L 03/04/19 04:43 Alkaline Phosphatase 94 Units/L (46-116) 03/04/19 04:43 Total Protein 6.4 g/dL (6.4-8.2) 03/04/19 04:43 Albumin 2.2 g/dL (3.4-5.0) L 03/04/19 04:43 Globulin 4.2 g/dL (2.5-4.5) 03/04/19 04:43 Albumin/Globulin Ratio 0.5 Ratio (1.1-2.1) L 03/04/19 04:43 Amylase 22 Units/L (25-115) L 03/04/19 04:43 Lipase 34 Units/L (73-393) L 03/04/19 04:43 Specimen Type Clean catch urine 03/03/19 23:55 Urine Color Yellow (YELLOW) 03/03/19 23:55 Urine Appearance Clear (CLEAR) 03/03/19 23:55 Urine pH 5.0 (5.0 - 8.0) 03/03/19 23:55 Ur Specific [place] 1.020 (1.000-1.030) 03/03/19 23:55 Urine Protein Negative (NEGATIVE) 03/03/19 23:55 Urine Glucose (UA) Negative (NEGATIVE) 03/03/19 23:55 Urine Ketones 1+ (NEGATIVE) 03/03/19 23:55 Urine Occult Blood 2+ (NEGATIVE) 03/03/19 23:55 Urine Nitrite Negative (NEGATIVE) 03/03/19 23:55 Urine Bilirubin Negative (NEGATIVE) 03/03/19 23:55 Urine Urobilinogen Normal (NORMAL) 03/03/19 23:55 Ur Leukocyte Esterase Negative (NEGATIVE) 03/03/19 23:55 Urine RBC 0-2 /HPF (0-3) 03/03/19 23:55 Urine WBC None seen /HPF (0-5) 03/03/19 23:55 Ur Squamous Epith Cells Moderate /HPF (NEGATIVE) 03/03/19 23:55 Urine Bacteria Negative /HPF (NEGATIVE) 03/03/19 23:55 Ur Culture Indicated? No/not indicated 03/03/19 23:55 - Assessment and Plan 1: abdominal pain . residual pelvic inflamation from diverticulitis and pelvic abscess ( s/p drainage ). large duodenal ulcer . weight loss . same IV ATB and hydraion . no need for surgery now . Pt ws scheduled for GI endoscopy as OP next month . - Problem Patient Problems: Patient Problems Abdominal abscess (Acute) Abdominal pain (Acute) R10.9
[2019-03-04] MEDS: DEMEROL INJ IVP PRN ×2 (16:56→20:44)
[2019-03-05] MEDS: FLAGYL IV PREMIX 500 MG BAG 500 MG/100 ML BAG IV SCH ×4 (04:11→22:09)
[2019-03-05] MEDS: ZOFRAN INJ 4 MG VIAL IVP PRN (04:16)
[2019-03-05 05:24] LABS: BASOPHILS % (AUTO) 0.4 % (0.2-1.0); EOSINOPHILS % (AUTO) 0.9 % (0.9-2.9); HEMATOCRIT 32.5 % (36.0-47.0); HEMOGLOBIN 10.9 g/dL (12.0-16.0); LYMPHOCYTES # (AUTO) 1.3 X10^3/uL (1.3-2.9); LYMPHOCYTES % (AUTO) 24.5 % (21.0-51.0); MEAN CORPUSCULAR HEMOGLOBIN 29.4 pg (27.0-34.0); MEAN CORPUSCULAR HGB CONC 33.7 g/dL (33.0-35.0); MEAN CORPUSCULAR VOLUME 87.4 fL (80.0-100.0); MEAN PLATELET VOLUME 7.3 fL (7.4-11.0); MONOCYTES % (AUTO) 17.9 % (0.0-13.0); NEUTROPHILS % (AUTO) 56.3 % (42.0-75.0); PLATELET COUNT 297 X10^3/uL (150.0-450.0); RED BLOOD COUNT 3.72 X10^6/uL (3.5-5.4); RED CELL DISTRIBUTION WIDTH 17.8 % (11.6-16.5); WHITE BLOOD COUNT 5.4 X10^3/uL (3.6-10.0)
[2019-03-05 05:41] LABS: ALANINE AMINOTRANSFERASE < 6 Units/L (12-78); ALBUMIN 1.9 g/dL (3.4-5.0); ALKALINE PHOSPHATASE 93 Units/L (46-116); ASPARTATE AMINO TRANSFERASE 12 Units/L (15-37); BLOOD UREA NITROGEN 5 mg/dL (7-18); CALCIUM 8.6 mg/dL (8.5-10.1); CARBON DIOXIDE 24.6 mmol/L (21-32); CHLORIDE 103 mmol/L (98-107); COR CA(FOR HYPOALB) 10.3 mg/dL (8.5-10.1); CREATININE 0.46 mg/dL (0.55-1.02); SODIUM 138 mmol/L (136-145); TOTAL PROTEIN 5.9 g/dL (6.4-8.2); eGFR NON BLACK RACES > 60 (>60)
[2019-03-05] MEDS ORDERED: KLOR-CON PO PRN (06:22)
[2019-03-05] MEDS ORDERED: MICRO K EXTEN CAP 10 MEQ PO PRN (06:22)
[2019-03-05] MEDS ORDERED: POTASSIUM CHL 60 MEQ/NS 0.45% 500 ML IV PRN (06:22)
[2019-03-05] MEDS ORDERED: POTASSIUM CHL 40 MEQ/NS 0.45% 500 ML IV PRN (06:22)
[2019-03-05] MEDS ORDERED: K-RIDER 10 MEQ/NS 100 ML 10 MEQ/100 ML BAG IV PRN (06:22)
[2019-03-05] MEDS ORDERED: POTASSIUM CHLORIDE LIQ 20 MEQ UDC PO PRN (06:22)
[2019-03-05] MEDS: K-DUR TAB 20 MEQ PO PRN (08:42)
[2019-03-05] MEDS: CIPRO IV 400 MG PREMIX* 400 MG/200 ML IV.SOLN. IV SCH ×2 (09:58→20:50)
[2019-03-05] MEDS: NS 1000 ML 1,000 ML IV SCH (10:17)
[2019-03-05] MEDS: DEMEROL INJ IVP PRN ×2 (10:35→20:52)
[2019-03-05] MEDS: MAGNESIUM SULFATE 1 GRAM/100 mL PREMIX 1 GM/100 ML BAG IV PRN (13:33)
[2019-03-05] MEDS ORDERED: NS 100 ML IV 100 ML IV ONE (14:18)
[2019-03-05] MEDS ORDERED: NORCO 5/325 MG TAB PO PRN (16:05)
[2019-03-05] MEDS ORDERED: INDERAL TAB 10 MG PO SCH (17:00)
[2019-03-05] MEDS: CYMBALTA PO SCH (19:14)
[2019-03-05] MEDS: FOLIC ACID TAB 1 MG PO SCH (19:14)
[2019-03-05] MEDS: PROTONIX TAB 40 MG PO SCH (20:51)
[2019-03-06] MEDS: NS 1000 ML 1,000 ML IV SCH ×5 (02:07→23:30)
[2019-03-06] MEDS: FLAGYL IV PREMIX 500 MG BAG 500 MG/100 ML BAG IV SCH ×4 (02:55→22:40)
[2019-03-06 05:03] LABS: BASOPHILS % (AUTO) 0.4 % (0.2-1.0); EOSINOPHILS # (AUTO) 0.1 x10^3/uL (0.0-0.2); EOSINOPHILS % (AUTO) 1.2 % (0.9-2.9); HEMATOCRIT 33.9 % (36.0-47.0); HEMOGLOBIN 11.2 g/dL (12.0-16.0); LYMPHOCYTES # (AUTO) 1.1 X10^3/uL (1.3-2.9); LYMPHOCYTES % (AUTO) 19.5 % (21.0-51.0); MEAN CORPUSCULAR HEMOGLOBIN 28.6 pg (27.0-34.0); MEAN CORPUSCULAR HGB CONC 33.1 g/dL (33.0-35.0); MEAN CORPUSCULAR VOLUME 86.4 fL (80.0-100.0); MEAN PLATELET VOLUME 7.5 fL (7.4-11.0); MONOCYTES # (AUTO) 0.9 x10^3/uL (0.3-0.8); MONOCYTES % (AUTO) 16.2 % (0.0-13.0); NEUTROPHILS # (AUTO) 3.5 x10^3/uL (2.2-4.8); NEUTROPHILS % (AUTO) 62.7 % (42.0-75.0); PLATELET COUNT 333 X10^3/uL (150.0-450.0); RED BLOOD COUNT 3.93 X10^6/uL (3.5-5.4); RED CELL DISTRIBUTION WIDTH 17.4 % (11.6-16.5); WHITE BLOOD COUNT 5.6 X10^3/uL (3.6-10.0)
[2019-03-06 05:19] LABS: ALANINE AMINOTRANSFERASE 7 Units/L (12-78); ALBUMIN 2.1 g/dL (3.4-5.0); ALKALINE PHOSPHATASE 86 Units/L (46-116); ASPARTATE AMINO TRANSFERASE 10 Units/L (15-37); BLOOD UREA NITROGEN 1 mg/dL (7-18); CALCIUM 8.5 mg/dL (8.5-10.1); CARBON DIOXIDE 26.4 mmol/L (21-32); CHLORIDE 103 mmol/L (98-107); CREATININE 0.42 mg/dL (0.55-1.02); MAGNESIUM 1.7 mg/dL (1.7-2.9); SODIUM 140 mmol/L (136-145); TOTAL PROTEIN 6.3 g/dL (6.4-8.2); eGFR NON BLACK RACES > 60 (>60)
[2019-03-06] MEDS: MAGNESIUM SULFATE 1 GRAM/100 mL PREMIX 1 GM/100 ML BAG IV PRN ×2 (05:32→08:00)
[2019-03-06] MEDS: K-DUR TAB 20 MEQ PO PRN (05:32)
[2019-03-06] MEDS: PROTONIX TAB 40 MG PO SCH ×2 (09:11→20:58)
[2019-03-06] MEDS: FOLIC ACID TAB 1 MG PO SCH (09:11)
[2019-03-06] MEDS: CYMBALTA PO SCH (09:30)
[2019-03-06] MEDS: CIPRO IV 400 MG PREMIX* 400 MG/200 ML IV.SOLN. IV SCH ×2 (09:50→20:59)
[2019-03-06] MEDS ORDERED: PHARMACY CONSULT - TPN XX SCH (10:00)
[2019-03-06] MEDS: PATIENT'S HOME MEDICATION PO SCH (10:00)
--- NOTE | 2019-03-06 10:48 | DR.H&P ---
H&P - History & Physical for Day of: H&P Date: 03/03/19 - Chief Complaint Chief Complaint: ABDOMINAL PAIN, N/V/D - History of Present Illness History of Present Illness: IS A 68 YEAR OLD PATIENT OF OURS WHO PRESENTED TO THE ER WITH COMPLAINTS OF ABDOMINAL PAIN, NAUSEA, VOMITING, DIARRHEA, AND GENERALIZED WEAKNESS. SYMPTOMS APPARENTLY STARTED 2-3 DAYS PRIOR TO ARRIVAL AND HAVE PROGRESSIVELY GOTTEN WORSE. SHE HAS A HISTORY OF DIVER TICULITIS. PERFORMED AN EXPLORATORY LAPAROTOMY, LYSIS OF EXTENSIVE ABDOMINAL ADHESIONS, PARTIAL SMALL BOWEL RESECTION X 2 WITH END TO END ANASTOMOSIS, AND DRAINAGE OF PELVIC ABSCESS ON 12/20/18. ON ARRIVAL TO THE ER, VITALS WERE 97.9-86-20-96%-104/52. LABS WERE OBTAINED. ABNORMAL LAB VALUES INCLUDE THE FOLLOWING: WBC 14.8, SODIUM 133, CHLORIDE 94, AST 14, ALT 11, ALK PHOS 128, TOTAL PROTEIN 8.3, ALBUMIN 2.9, GLOBULIN 5.4, LIPASE 40. URINALYSIS IS UNREMARKABLE. AN ABDOMEN/PELVIS CT WAS OBTAINED AND REVEALED: Very limited exam due to the lack of oral and IV contrast. Status post removal of the pigtail catheter from the right lower pelvis with in ill-defined 8-10 cm rounded area of soft tissue fullness seen along the right lower pelvis extending superiorly into the mesentery which which is more apparent but to further characterize due to the unopacified loops of bowel surrounding the area . This could represent a recurrent abscess or mass of other etiology but remains indeterminate . Recommend a follow-up CT scan with oral and IV contrast to further characterize the area. Post changes in the bowel along the lower abdomen which is unchanged with no obvious bowel obstruction. No hydronephrosis or renal stones. Mild hepatomegaly and chronic liver changes with a small hypodensity left lobe which is unchanged. Mild splenomegaly. SHE WAS GIVEN DEMEROL 25MG IV X 1 AND ZOFRAN 4MG IV X 1 IN THE ER. SHE WAS ADMITTED FOR FURTHER EVALUATION AND TREATMENT OF ABDOMINAL PAIN, ABDOMINAL MASS, N/V/D. WE WILL CONSULT . OTHERWISE, WE PLAN TO FOLLOW UP WITH AM LABS AND CONTINUE TO MONITOR. - Past Medical History Past Medical History: Depression, Anemia, GERD, Arthritis - Past Surgical History Surgical History: Abdominal Surgery - Family History Family Medical History: Diabetes Mellitus, Cancer - Social History Does patient currently use any type of tobacco product: Yes Have you used tobacco products in the last 12 months: Yes Type of Tobacco Use: Cigarettes How many years tobacco product used: 40 Does any household member use tobacco: No Alcohol Use: None Drug Use: Prescription Drugs - Medications Home Medications: morphine Allergy (Verified 03/03/19 13:27) Penicillins Allergy (Verified 03/03/19 13:27) CONTINUE taking the following medications folic acid 1 mg PO DAILY 03/03/19 [History] hydrocodone-acetaminophen [[place]] 1 tab PO Q8H PRN 03/03/19 [History] ondansetron HCl [Zofran] 4 mg PO Q6H PRN 03/03/19 [History] - Review of Systems Constitutional: Weakness Eyes: No Symptoms Reported ENT: No Symptoms Reported Respiratory: No Symptoms Reported Cardiovascular: No Symptoms Reported Gastrointestinal: See HPI, Nausea, Vomiting, Abdominal Pain, Diarrhea Genitourinary: No Symptoms Reported Musculoskeletal: No Symptoms Reported Skin: No Symptoms Reported Neurological: Weakness - Physical Exam Vital Signs: Temperature 98.5 F Pulse Rate [Left Brachial] 74 Pulse Rate 86 Respiratory Rate 18 Blood Pressure [Right Arm] 108/61 Blood Pressure [Left Arm] 105/52 Blood Pressure 104/52 O2 Sat by Pulse Oximetry 98 Oriented: Normal Eyes: Normal Ear: Normal Nose: Normal Throat: Normal Respiratory: Diminished Throughout Cardiovascular: Normal : Normal Auscultation: Bowel Sounds: Normal Palpation: Normal Tenderness: Diffuse, Moderate. negative: Rebound, Guarding, Rigidity Skin: Normal Musculoskeletal: Normal Psychiatric: Normal Mood Description: Calm Affect: Normal Speech Pattern: Clear - Assessment/Plan (1) Abdominal pain Qualifiers: Status: Acute (2) Abdominal mass Qualifiers: Status: Acute (3) Nausea & vomiting Status: Acute (4) Diarrhea Status: Acute (5) Generalized weakness Status: Acute - Allergies Allergies/Adverse Reactions: Allergies Allergy/AdvReac Type Severity Reaction Status Date / Time morphine Allergy Verified 03/03/19 13:27 Penicillins Allergy Verified 03/03/19 13:27
[2019-03-06] MEDS: ALBUMIN HUMAN 25%- 100 ML 100 ML IV SCH (11:21)
[2019-03-06] MEDS: LOVENOX INJ 40 MG SYR SC SCH (11:22)
--- NOTE | 2019-03-06 11:33 | PCM.PROG ---
Progress Note - Progress Note for Day of Date of Exam: 03/04/19 - Subjective Subjective: IS BEING TREATED FOR AN ABDOMINAL MASS, ABDOMINAL PAIN, AND N/V/D. TODAY, SHE IS ALERT AND ORIENTED, LYING IN BED ON MORNING ROUNDS. SHE CONTINUES WITH COMPLAINTS OF ABDOMINAL PAIN AND ALSO REPORTS GENERALIZED WEAKNESS. ON EXAMINATION, HEART IS REGULAR IN RATE AND RHYTHM. BILATERAL LUNGS ARE NOTED WITH DIMINISHED LUNG SOUNDS THROUGHOUT. ABDOMEN IS ROUND, SOFT, AND NOTED WITH DIFFUSE TENDERNESS TO PALPATION. HER VITALS THIS MORNING ARE: 97.7-69-18-97%-104/51. LABS WERE OBTAINED. ABNORMAL LAB VALUES INCLUDE THE FOLLOWING: HGB 11.3, HCT 33.5, AST 11, ALT 7, ALBUMIN 2.2, AMYLASE 22, LIPASE 34. CONSULTED WITH PATIENT AND RECOMMENDS TO CONTINUE WITH IV ANTIBIOTICS AND IV HYDRATION TODAY. HE WILL CONTINUE TO MONITOR. WE ARE IN AGREEMENT WITH PLAN. SHE IS CURRENTLY RECEIVING NORMLA SALINE AT 125ML/HR, IV CIPRO, ZOFRAN 4MG IV Q6H PRN, DEMEROL 50MG IV Q4H PRN. WE PLAN TO FOLLOW UP WITH AM LABS AND CONTINUE TO MONITOR. - Past Medical Family Social History Past Med/Fam/Surg Hx: No changes since H&P Allergies: Allergies morphine Allergy (Verified 03/03/19 13:27) Penicillins Allergy (Verified 03/03/19 13:27) - Review of Systems ROS: No change since H&P - Vital Signs and I&O's Vital Signs: Temperature 98.5 F Pulse Rate [Left Brachial] 74 Pulse Rate 86 Respiratory Rate 18 Blood Pressure [Right Arm] 108/61 Blood Pressure [Left Arm] 105/52 Blood Pressure 104/52 O2 Sat by Pulse Oximetry 98 Intake and Output: Intake & Output 03/03/19 03/04/19 03/05/19 03/06/19 11:59 11:59 11:59 11:59 Intake Total 1170 / 1170 1160 / 1160 4560 / 4560 Output Total 300 / 300 Balance 870 / 870 1160 / 1160 4560 / 4560 - Physical Exam Oriented: Normal Eyes: Normal Ear: Normal Nose: Normal Throat: Normal Respiratory: Generalized, Diminished Cardiovascular: Normal : Normal Auscultation: Bowel Sounds: Normal Palpation: Normal Tenderness: Diffuse, Moderate. negative: Rebound, Guarding, Rigidity Skin: Normal Musculoskeletal: Normal Psychiatric: Normal Mood Description: Calm Affect: Normal Speech Pattern: Clear - Laboratory and Diagnostics Result Diagrams: 03/06/19 04:26 03/06/19 04:26 Labs: 03/03/19 14:11 Blood Blood Culture - Preliminary Laboratory WBC 5.6 X10^3/uL (3.6-10.0) 03/06/19 04:26 RBC 3.93 X10^6/uL (3.5-5.4) 03/06/19 04:26 Hgb 11.2 g/dL (12.0-16.0) L 03/06/19 04:26 Hct 33.9 % (36.0-47.0) L 03/06/19 04:26 MCV 86.4 fL (80.0-100.0) 03/06/19 04:26 MCH 28.6 pg (27.0-34.0) 03/06/19 04:26 MCHC 33.1 g/dL (33.0-35.0) 03/06/19 04:26 RDW 17.4 % (11.6-16.5) H 03/06/19 04:26 Plt Count 333 X10^3/uL (150.0-450.0) 03/06/19 04:26 MPV 7.5 fL (7.4-11.0) 03/06/19 04:26 Neut % (Auto) 62.7 % (42.0-75.0) 03/06/19 04:26 Lymph % (Auto) 19.5 % (21.0-51.0) L 03/06/19 04:26 [place] % (Auto) 16.2 % (0.0-13.0) H 03/06/19 04:26 Eos % (Auto) 1.2 % (0.9-2.9) 03/06/19 04:26 Baso % (Auto) 0.4 % (0.2-1.0) 03/06/19 04:26 Neut # (Auto) 3.5 x10^3/uL (2.2-4.8) 03/06/19 04:26 Lymph # (Auto) 1.1 X10^3/uL (1.3-2.9) L 03/06/19 04:26 [place] # (Auto) 0.9 x10^3/uL (0.3-0.8) H 03/06/19 04:26 Eos # (Auto) 0.1 x10^3/uL (0.0-0.2) 03/06/19 04:26 Baso # (Auto) 0.0 X10^3/uL (0.0-0.1) 03/06/19 04:26 Absolute Nucleated RBC 0.0 /100WBC 03/06/19 04:26 Sodium 140 mmol/L (136-145) 03/06/19 04:26 Corrected Sodium TNP 03/06/19 04:26 Potassium 3.5 mmol/L (3.5-5.1) 03/06/19 04:26 Chloride 103 mmol/L (98-107) 03/06/19 04:26 Carbon Dioxide 26.4 mmol/L (21-32) 03/06/19 04:26 BUN 1 mg/dL (7-18) L 03/06/19 04:26 Creatinine 0.42 mg/dL (0.55-1.02) L 03/06/19 04:26 Est GFR (MDRD) Af Amer > 60 (>60) 03/06/19 04:26 Est GFR (MDRD) Non-Af > 60 (>60) 03/06/19 04:26 Glucose 102 mg/dL (65-99) H 03/06/19 04:26 Lactic Acid 3.0 mmol/L (0.4-2.0) H 03/03/19 14:11 Calcium 8.5 mg/dL (8.5-10.1) 03/06/19 04:26 Corrected Calcium 10.0 mg/dL (8.5-10.1) 03/06/19 04:26 Magnesium 1.7 mg/dL (1.7-2.9) 03/06/19 04:26 Total Bilirubin 0.30 mg/dL (0.2-1.0) 03/06/19 04:26 AST 10 Units/L (15-37) L 03/06/19 04:26 ALT 7 Units/L (12-78) L 03/06/19 04:26 Alkaline Phosphatase 86 Units/L (46-116) 03/06/19 04:26 Total Protein 6.3 g/dL (6.4-8.2) L 03/06/19 04:26 Albumin 2.1 g/dL (3.4-5.0) L 03/06/19 04:26 Globulin 4.2 g/dL (2.5-4.5) 03/06/19 04:26 Albumin/Globulin Ratio 0.5 Ratio (1.1-2.1) L 03/06/19 04:26 Prealbumin 12.6 mg/dL (18-35.7) L 03/06/19 04:26 Amylase 22 Units/L (25-115) L 03/04/19 04:43 Lipase 34 Units/L (73-393) L 03/04/19 04:43 Specimen Type Clean catch urine 03/03/19 23:55 Urine Color Yellow (YELLOW) 03/03/19 23:55 Urine Appearance Clear (CLEAR) 03/03/19 23:55 Urine pH 5.0 (5.0 - 8.0) 03/03/19 23:55 Ur Specific [place] 1.020 (1.000-1.030) 03/03/19 23:55 Urine Protein Negative (NEGATIVE) 03/03/19 23:55 Urine Glucose (UA) Negative (NEGATIVE) 03/03/19 23:55 Urine Ketones 1+ (NEGATIVE) 03/03/19 23:55 Urine Occult Blood 2+ (NEGATIVE) 03/03/19 23:55 Urine Nitrite Negative (NEGATIVE) 03/03/19 23:55 Urine Bilirubin Negative (NEGATIVE) 03/03/19 23:55 Urine Urobilinogen Normal (NORMAL) 03/03/19 23:55 Ur Leukocyte Esterase Negative (NEGATIVE) 03/03/19 23:55 Urine RBC 0-2 /HPF (0-3) 03/03/19 23:55 Urine WBC None seen /HPF (0-5) 03/03/19 23:55 Ur Squamous Epith Cells Moderate /HPF (NEGATIVE) 03/03/19 23:55 Urine Bacteria Negative /HPF (NEGATIVE) 03/03/19 23:55 Ur Culture Indicated? No/not indicated 03/03/19 23:55 - Plan (1) Abdominal pain Status: Acute Qualifiers: Plan: NORMAL SALINE AT 125ML/HR, IV CIPRO, ZOFRAN 4MG IV Q6H PRN, DEMEROL 50MG IV Q4H PRN (2) Abdominal mass Status: Acute Qualifiers: Abdominal location: unspecified location (3) Nausea & vomiting Status: Acute Qualifiers: Vomiting Intractability: intractable (4) Diarrhea Status: Acute Qualifiers: Diarrhea type: unspecified type Qualified Code(s): R19.7 - Diarrhea, unspecified (5) Generalized weakness Status: Acute
--- NOTE | 2019-03-06 12:41 | DR.PROGNOT ---
Hospital Progress Notes - Progress Note for Day of: Progress Note Date: 03/06/19 - Chief Complaint Chief Complaint: only mild mid abdominal pain . no nausea or vomiting today . having loose BM , no bleeding . no fever this am . CBC , lytes , Amylase , Lipase and LFT all normal . abdominal and pelvic CT still showing collection in the pelvis could related to old diverticulitis . - Past Medical Family Social History Past Med/Fam/Surg Hx: No changes since H&P Allergies: Allergies morphine Allergy (Verified 03/03/19 13:27) Penicillins Allergy (Verified 03/03/19 13:27) - Review Of Systems ROS: No change since H&P - Vital Signs Vital Signs: Temperature 98.7 F Pulse Rate [Left Brachial] 77 Pulse Rate 86 Respiratory Rate 18 Blood Pressure [Right Arm] 108/61 Blood Pressure [Left Arm] 112/52 Blood Pressure 104/52 O2 Sat by Pulse Oximetry 99 - Physical Exam Oriented: Normal Eyes: Normal Ear: Normal Nose: Normal Throat: Normal Respiratory: Generalized, Diminished Cardiovascular: Normal : Normal GI:Auscultation: Normal GI:Palpation: Normal GI: Tenderness: Diffuse, Moderate. negative: Rebound, Guarding, Rigidity Skin: Normal Musculoskeletal: Normal Psychiatric: Normal Mood Description: Calm Affect: Normal Speech Pattern: Clear - Laboratory and Diagnostics Result Diagrams: 03/06/19 04:26 03/06/19 04:26 Labs: 03/03/19 14:11 Blood Blood Culture - Preliminary Laboratory WBC 5.6 X10^3/uL (3.6-10.0) 03/06/19 04:26 RBC 3.93 X10^6/uL (3.5-5.4) 03/06/19 04:26 Hgb 11.2 g/dL (12.0-16.0) L 03/06/19 04:26 Hct 33.9 % (36.0-47.0) L 03/06/19 04:26 MCV 86.4 fL (80.0-100.0) 03/06/19 04:26 MCH 28.6 pg (27.0-34.0) 03/06/19 04:26 MCHC 33.1 g/dL (33.0-35.0) 03/06/19 04:26 RDW 17.4 % (11.6-16.5) H 03/06/19 04:26 Plt Count 333 X10^3/uL (150.0-450.0) 03/06/19 04:26 MPV 7.5 fL (7.4-11.0) 03/06/19 04:26 Neut % (Auto) 62.7 % (42.0-75.0) 03/06/19 04:26 Lymph % (Auto) 19.5 % (21.0-51.0) L 03/06/19 04:26 [place] % (Auto) 16.2 % (0.0-13.0) H 03/06/19 04:26 Eos % (Auto) 1.2 % (0.9-2.9) 03/06/19 04:26 Baso % (Auto) 0.4 % (0.2-1.0) 03/06/19 04:26 Neut # (Auto) 3.5 x10^3/uL (2.2-4.8) 03/06/19 04:26 Lymph # (Auto) 1.1 X10^3/uL (1.3-2.9) L 03/06/19 04:26 [place] # (Auto) 0.9 x10^3/uL (0.3-0.8) H 03/06/19 04:26 Eos # (Auto) 0.1 x10^3/uL (0.0-0.2) 03/06/19 04:26 Baso # (Auto) 0.0 X10^3/uL (0.0-0.1) 03/06/19 04:26 Absolute Nucleated RBC 0.0 /100WBC 03/06/19 04:26 Sodium 140 mmol/L (136-145) 03/06/19 04:26 Corrected Sodium TNP 03/06/19 04:26 Potassium 3.5 mmol/L (3.5-5.1) 03/06/19 04:26 Chloride 103 mmol/L (98-107) 03/06/19 04:26 Carbon Dioxide 26.4 mmol/L (21-32) 03/06/19 04:26 BUN 1 mg/dL (7-18) L 03/06/19 04:26 Creatinine 0.42 mg/dL (0.55-1.02) L 03/06/19 04:26 Est GFR (MDRD) Af Amer > 60 (>60) 03/06/19 04:26 Est GFR (MDRD) Non-Af > 60 (>60) 03/06/19 04:26 Glucose 102 mg/dL (65-99) H 03/06/19 04:26 Lactic Acid 3.0 mmol/L (0.4-2.0) H 03/03/19 14:11 Calcium 8.5 mg/dL (8.5-10.1) 03/06/19 04:26 Corrected Calcium 10.0 mg/dL (8.5-10.1) 03/06/19 04:26 Magnesium 1.7 mg/dL (1.7-2.9) 03/06/19 04:26 Total Bilirubin 0.30 mg/dL (0.2-1.0) 03/06/19 04:26 AST 10 Units/L (15-37) L 03/06/19 04:26 ALT 7 Units/L (12-78) L 03/06/19 04:26 Alkaline Phosphatase 86 Units/L (46-116) 03/06/19 04:26 Total Protein 6.3 g/dL (6.4-8.2) L 03/06/19 04:26 Albumin 2.1 g/dL (3.4-5.0) L 03/06/19 04:26 Globulin 4.2 g/dL (2.5-4.5) 03/06/19 04:26 Albumin/Globulin Ratio 0.5 Ratio (1.1-2.1) L 03/06/19 04:26 Prealbumin 12.6 mg/dL (18-35.7) L 03/06/19 04:26 Amylase 22 Units/L (25-115) L 03/04/19 04:43 Lipase 34 Units/L (73-393) L 03/04/19 04:43 Specimen Type Clean catch urine 03/03/19 23:55 Urine Color Yellow (YELLOW) 03/03/19 23:55 Urine Appearance Clear (CLEAR) 03/03/19 23:55 Urine pH 5.0 (5.0 - 8.0) 03/03/19 23:55 Ur Specific [place] 1.020 (1.000-1.030) 03/03/19 23:55 Urine Protein Negative (NEGATIVE) 03/03/19 23:55 Urine Glucose (UA) Negative (NEGATIVE) 03/03/19 23:55 Urine Ketones 1+ (NEGATIVE) 03/03/19 23:55 Urine Occult Blood 2+ (NEGATIVE) 03/03/19 23:55 Urine Nitrite Negative (NEGATIVE) 03/03/19 23:55 Urine Bilirubin Negative (NEGATIVE) 03/03/19 23:55 Urine Urobilinogen Normal (NORMAL) 03/03/19 23: Ur Leukocyte Esterase Negative (NEGATIVE) 03/03/19 23:55 Urine RBC 0-2 /HPF (0-3) 03/03/19 23:55 Urine WBC None seen /HPF (0-5) 03/03/19 23: Ur Squamous Epith Cells Moderate /HPF (NEGATIVE) 03/03/19 23:55 Urine Bacteria Negative /HPF (NEGATIVE) 03/03/19 23:55 Ur Culture Indicated? No/not indicated 03/03/19 23: - Assessment and Plan 1: abdominal pain . residual pelvic inflamation from diverticulitis and pelvic abscess ( s/p drainage ). large duodenal ulcer . weight loss with hypoalbuminemia. same IV ATB and hydraion . no need for surgery now . d/w Pt all options .. if surgery is needed , it will be colostomy till the inflamation subsides . on IV ATB and nutritional support . Pt was scheduled for GI endoscopy as OP next month . - Problem Patient Problems: Patient Problems Abdominal abscess (Acute) Abdominal pain (Acute) R10.9 Nausea & vomiting (Acute) R11.2 Diarrhea (Acute) R19.7
[2019-03-06] MEDS: PROCALAMINE 3 % 1,000 ML IV SCH (14:03)
[2019-03-06] MEDS: ZOFRAN INJ 4 MG VIAL IVP PRN (18:35)
[2019-03-06] MEDS: DEMEROL INJ IVP PRN (21:08)
--- NOTE | 2019-03-06 21:41 | PCM.PROG ---
Progress Note - Progress Note for Day of Date of Exam: 03/05/19 - Subjective Subjective: IS BEING TREATED FOR AN ABDOMINAL MASS, ABDOMINAL PAIN, AND N/V/D. TODAY, SHE IS ALERT AND ORIENTED, LYING IN BED ON MORNING ROUNDS. SHE CONTINUES WITH COMPLAINTS OF ABDOMINAL PAIN, NAUSEA, AND GENERALIZED WEAKNESS. ON EXAMINATION, HEART IS REGULAR IN RATE AND RHYTHM. BILATERAL LUNGS ARE NOTED WITH DIMINISHED LUNG SOUNDS THROUGHOUT. ABDOMEN IS ROUND, SOFT, AND NOTED WITH DIFFUSE TENDERNESS TO PALPATION. HER VITALS THIS MORNING ARE: 98.2-75-20-95%-129/56. LABS WERE OBTAINED. ABNORMAL LAB VALUES INCLUDE THE FOLLOWING: HGB 10.9, HCT 32.5, BUN 5, CREATININE 0.46, GLUCOSE 103, MAGNESIUM 1.5, AST 12, ALT <6, TOTAL PROTEIN 5.9, ALBUMIN 1.9, MAGNESIUM 1.5. , GENERAL SURGEON CONTINUES TO MONITOR PATIENT. SHE IS CURRENTLY RECEIVING NORMAL SALINE AT 125ML/HR, IV CIPRO, ZOFRAN 4MG IV Q6H PRN, DEMEROL 50MG IV Q4H PRN. WE WILL CONTINUE HER HOME MEDICATIONS TODAY. OTHERWISE, WE WILL CONTINUE WITH CURRENT PLAN OF CARE. WE PLAN TO FOLLOW UP WITH AM LABS AND CONTINUE TO MONITOR. - Past Medical Family Social History Past Med/Fam/Surg Hx: No changes since H&P Allergies: Allergies morphine Allergy (Verified 03/03/19 13:27) Penicillins Allergy (Verified 03/03/19 13:27) - Review of Systems ROS: No change since H&P - Vital Signs and I&O's Vital Signs: Temperature 98.8 F Pulse Rate [Left Brachial] 68 Pulse Rate 86 Respiratory Rate 18 Blood Pressure [Right Arm] 108/61 Blood Pressure [Left Arm] 127/61 Blood Pressure 104/52 O2 Sat by Pulse Oximetry 97 Intake and Output: Intake & Output 03/04/19 03/05/19 03/06/19 03/07/19 11:59 11:59 11:59 11:59 Intake Total 1170 / 1170 1160 / 1160 4560 / 4560 2119 Output Total 300 / 300 Balance 870 / 870 1160 / 1160 4560 / 4560 2119 - Physical Exam Oriented: Normal Eyes: Normal Ear: Normal Nose: Normal Throat: Normal Respiratory: Generalized, Diminished Cardiovascular: Normal : Normal Auscultation: Bowel Sounds: Normal Palpation: Normal Tenderness: Diffuse, Moderate. negative: Rebound, Guarding, Rigidity Skin: Normal Musculoskeletal: Normal Psychiatric: Normal Mood Description: Calm Affect: Normal Speech Pattern: Clear - Laboratory and Diagnostics Result Diagrams: 03/06/19 04:26 03/06/19 04:26 Labs: 03/03/19 14:11 Blood Blood Culture - Preliminary Laboratory WBC 5.6 X10^3/uL (3.6-10.0) 03/06/19 04:26 RBC 3.93 X10^6/uL (3.5-5.4) 03/06/19 04:26 Hgb 11.2 g/dL (12.0-16.0) L 03/06/19 04:26 Hct 33.9 % (36.0-47.0) L 03/06/19 04:26 MCV 86.4 fL (80.0-100.0) 03/06/19 04:26 MCH 28.6 pg (27.0-34.0) 03/06/19 04:26 MCHC 33.1 g/dL (33.0-35.0) 03/06/19 04:26 RDW 17.4 % (11.6-16.5) H 03/06/19 04:26 Plt Count 333 X10^3/uL (150.0-450.0) 03/06/19 04:26 MPV 7.5 fL (7.4-11.0) 03/06/19 04:26 Neut % (Auto) 62.7 % (42.0-75.0) 03/06/19 04:26 Lymph % (Auto) 19.5 % (21.0-51.0) L 03/06/19 04:26 [place] % (Auto) 16.2 % (0.0-13.0) H 03/06/19 04:26 Eos % (Auto) 1.2 % (0.9-2.9) 03/06/19 04:26 Baso % (Auto) 0.4 % (0.2-1.0) 03/06/19 04:26 Neut # (Auto) 3.5 x10^3/uL (2.2-4.8) 03/06/19 04:26 Lymph # (Auto) 1.1 X10^3/uL (1.3-2.9) L 03/06/19 04:26 [place] # (Auto) 0.9 x10^3/uL (0.3-0.8) H 03/06/19 04:26 Eos # (Auto) 0.1 x10^3/uL (0.0-0.2) 03/06/19 04:26 Baso # (Auto) 0.0 X10^3/uL (0.0-0.1) 03/06/19 04:26 Absolute Nucleated RBC 0.0 /100WBC 03/06/19 04:26 Sodium 140 mmol/L (136-145) 03/06/19 04:26 Corrected Sodium TNP 03/06/19 04:26 Potassium 3.5 mmol/L (3.5-5.1) 03/06/19 04:26 Chloride 103 mmol/L (98-107) 03/06/19 04:26 Carbon Dioxide 26.4 mmol/L (21-32) 03/06/19 04:26 BUN 1 mg/dL (7-18) L 03/06/19 04:26 Creatinine 0.42 mg/dL (0.55-1.02) L 03/06/19 04:26 Est GFR (MDRD) Af Amer > 60 (>60) 03/06/19 04:26 Est GFR (MDRD) Non-Af > 60 (>60) 03/06/19 04:26 Glucose 102 mg/dL (65-99) H 03/06/19 04:26 Lactic Acid 3.0 mmol/L (0.4-2.0) H 03/03/19 14:11 Calcium 8.5 mg/dL (8.5-10.1) 03/06/19 04:26 Corrected Calcium 10.0 mg/dL (8.5-10.1) 03/06/19 04:26 Magnesium 1.7 mg/dL (1.7-2.9) 03/06/19 04:26 Total Bilirubin 0.30 mg/dL (0.2-1.0) 03/06/19 04:26 AST 10 Units/L (15-37) L 03/06/19 04:26 ALT 7 Units/L (12-78) L 03/06/19 04:26 Alkaline Phosphatase 86 Units/L (46-116) 03/06/19 04:26 Total Protein 6.3 g/dL (6.4-8.2) L 03/06/19 04:26 Albumin 2.1 g/dL (3.4-5.0) L 03/06/19 04:26 Globulin 4.2 g/dL (2.5-4.5) 03/06/19 04:26 Albumin/Globulin Ratio 0.5 Ratio (1.1-2.1) L 03/06/19 04:26 Prealbumin 12.6 mg/dL (18-35.7) L 03/06/19 04:26 Amylase 22 Units/L (25-115) L 03/04/19 04:43 Lipase 34 Units/L (73-393) L 03/04/19 04:43 Specimen Type Clean catch urine 03/03/19 23:55 Urine Color Yellow (YELLOW) 03/03/19 23:55 Urine Appearance Clear (CLEAR) 03/03/19 23:55 Urine pH 5.0 (5.0 - 8.0) 03/03/19 23:55 Ur Specific [place] 1.020 (1.000-1.030) 03/03/19 23:55 Urine Protein Negative (NEGATIVE) 03/03/19 23:55 Urine Glucose (UA) Negative (NEGATIVE) 03/03/19 23:55 Urine Ketones 1+ (NEGATIVE) 03/03/19 23:55 Urine Occult Blood 2+ (NEGATIVE) 03/03/19 23:55 Urine Nitrite Negative (NEGATIVE) 03/03/19 23:55 Urine Bilirubin Negative (NEGATIVE) 03/03/19 23:55 Urine Urobilinogen Normal (NORMAL) 03/03/19 23:55 Ur Leukocyte Esterase Negative (NEGATIVE) 03/03/19 23:55 Urine RBC 0-2 /HPF (0-3) 03/03/19 23:55 Urine WBC None seen /HPF (0-5) 03/03/19 23:55 Ur Squamous Epith Cells Moderate /HPF (NEGATIVE) 03/03/19 23:55 Urine Bacteria Negative /HPF (NEGATIVE) 03/03/19 23:55 Ur Culture Indicated? No/not indicated 03/03/19 23:55 - Plan (1) Abdominal pain Status: Acute Qualifiers: Plan: NORMAL SALINE AT 125ML/HR, IV CIPRO, ZOFRAN 4MG IV Q6H PRN, DEMEROL 50MG IV Q4H PRN (2) Abdominal mass Status: Acute Qualifiers: Abdominal location: unspecified location (3) Nausea & vomiting Status: Acute Qualifiers: Vomiting Intractability: intractable (4) Diarrhea Status: Acute Qualifiers: Diarrhea type: unspecified type Qualified Code(s): R19.7 - Diarrhea, unspecified (5) Generalized weakness Status: Acute
[2019-03-07] MEDS: FLAGYL IV PREMIX 500 MG BAG 500 MG/100 ML BAG IV SCH ×4 (03:18→23:00)
--- NOTE | 2019-03-07 03:51 | CT ---
HISTORY: Abdominal pain Study: CT abdomen and pelvis with contrast Comparison: 03/03/2019 Technique: Multiple axial images of the abdomen and pelvis were obtained from the lung bases to the pubic symphysis after the administration of IV contrast. Findings: The visualized portions of the lung bases are unremarkable. The liver, spleen, pancreas, kidneys, and adrenal glands are unremarkable in their CT appearance. The gallbladder is unremarkable in its CT appearance. Reaccumulation of a pelvic fluid collection is noted with thickening in rim enhancement measuring 10.9 x 5.4 by 6.6 cm. Finding would be consistent with recannulization of a pelvic abscess when compared to prior examinations of 03/03/2019 and 01/19/2019. Given the significant reaccumulation of fluid anastomotic leak cannot be excluded follow-up will be needed in this regard. The bony structures are grossly intact. IMPRESSION: Interval reaccumulation of an intra-abdominal and pelvic fluid collection is noted with significant rim enhancement and soft tissue thickening surrounding fluid collection to suggest abscess. Reported By:
[2019-03-07 05:31] LABS: BASOPHILS % (AUTO) 0.3 % (0.2-1.0); EOSINOPHILS # (AUTO) 0.1 x10^3/uL (0.0-0.2); EOSINOPHILS % (AUTO) 2.2 % (0.9-2.9); HEMATOCRIT 29.1 % (36.0-47.0); HEMOGLOBIN 9.9 g/dL (12.0-16.0); LYMPHOCYTES # (AUTO) 1.2 X10^3/uL (1.3-2.9); LYMPHOCYTES % (AUTO) 25.8 % (21.0-51.0); MEAN CORPUSCULAR HEMOGLOBIN 29.3 pg (27.0-34.0); MEAN CORPUSCULAR VOLUME 86.3 fL (80.0-100.0); MONOCYTES # (AUTO) 0.8 x10^3/uL (0.3-0.8); MONOCYTES % (AUTO) 16.8 % (0.0-13.0); NEUTROPHILS # (AUTO) 2.6 x10^3/uL (2.2-4.8); NEUTROPHILS % (AUTO) 54.9 % (42.0-75.0); PLATELET COUNT 334 X10^3/uL (150.0-450.0); RED BLOOD COUNT 3.37 X10^6/uL (3.5-5.4); WHITE BLOOD COUNT 4.7 X10^3/uL (3.6-10.0)
[2019-03-07 05:46] LABS: ALANINE AMINOTRANSFERASE < 6 Units/L (12-78); ALBUMIN 2.2 g/dL (3.4-5.0); ALKALINE PHOSPHATASE 66 Units/L (46-116); ASPARTATE AMINO TRANSFERASE < 6 Units/L (15-37); BLOOD UREA NITROGEN 1 mg/dL (7-18); CALCIUM 8.2 mg/dL (8.5-10.1); CARBON DIOXIDE 25.6 mmol/L (21-32); CHLORIDE 104 mmol/L (98-107); COR CA(FOR HYPOALB) 9.6 mg/dL (8.5-10.1); COR NA(FOR HYPERGLY) 142 mmol/L (136-145); CREATININE 0.46 mg/dL (0.55-1.02); SODIUM 141 mmol/L (136-145); TOTAL PROTEIN 5.6 g/dL (6.4-8.2); eGFR NON BLACK RACES > 60 (>60)
[2019-03-07] MEDS: NS 1000 ML 1,000 ML IV SCH (06:00)
[2019-03-07] MEDS ORDERED: NS + KCL 20 MEQ/L 0 ML IV ONE (06:08)
[2019-03-07] MEDS: K-DUR TAB 20 MEQ PO PRN (06:32)
[2019-03-07] MEDS ORDERED: NS 1000 ML 1,000 ML IV SCH (07:00)
[2019-03-07] MEDS ORDERED: NS + KCL 20 MEQ/L 1,000 ML IV SCH (07:00)
--- NOTE | 2019-03-07 08:41 | DR.PROGNOT ---
Hospital Progress Notes - Progress Note for Day of: Progress Note Date: 03/07/19 - Chief Complaint Chief Complaint: mid abdominal pain . no nausea or vomiting today . having loose BM , no bleeding . no fever this am . CBC , lytes , Amylase , Lipase and LFT all normal . abdominal and pelvic CT still showing collection in the pelvis could related to old diverticulitis . - Past Medical Family Social History Past Med/Fam/Surg Hx: No changes since H&P Allergies: Allergies morphine Allergy (Verified 03/03/19 13:27) Penicillins Allergy (Verified 03/03/19 13:27) - Review Of Systems ROS: No change since H&P - Vital Signs Vital Signs: Temperature 98.5 F Pulse Rate [Left Brachial] 70 Pulse Rate 86 Respiratory Rate 18 Blood Pressure [Right Arm] 108/61 Blood Pressure [Left Arm] 111/61 Blood Pressure 104/52 O2 Sat by Pulse Oximetry 97 - Physical Exam Oriented: Normal Eyes: Normal Ear: Normal Nose: Normal Throat: Normal Respiratory: Generalized, Diminished Cardiovascular: Normal : Normal GI:Auscultation: Normal GI:Palpation: Normal GI: Tenderness: Diffuse, Moderate. negative: Rebound, Guarding, Rigidity Skin: Normal Musculoskeletal: Normal Psychiatric: Normal Mood Description: Calm Affect: Normal Speech Pattern: Clear, Appropriate - Laboratory and Diagnostics Result Diagrams: 03/07/19 04:54 03/07/19 04:54 Labs: 03/03/19 14:11 Blood Blood Culture - Preliminary Laboratory WBC 4.7 X10^3/uL (3.6-10.0) 03/07/19 04:54 RBC 3.37 X10^6/uL (3.5-5.4) L 03/07/19 04:54 Hgb 9.9 g/dL (12.0-16.0) L 03/07/19 04:54 Hct 29.1 % (36.0-47.0) L 03/07/19 04:54 MCV 86.3 fL (80.0-100.0) 03/07/19 04:54 MCH 29.3 pg (27.0-34.0) 03/07/19 04:54 MCHC 34.0 g/dL (33.0-35.0) 03/07/19 04:54 RDW 18.0 % (11.6-16.5) H 03/07/19 04:54 Plt Count 334 X10^3/uL (150.0-450.0) 03/07/19 04:54 MPV 7.0 fL (7.4-11.0) L 03/07/19 04:54 Neut % (Auto) 54.9 % (42.0-75.0) 03/07/19 04:54 Lymph % (Auto) 25.8 % (21.0-51.0) 03/07/19 04:54 [place] % (Auto) 16.8 % (0.0-13.0) H 03/07/19 04:54 Eos % (Auto) 2.2 % (0.9-2.9) 03/07/19 04:54 Baso % (Auto) 0.3 % (0.2-1.0) 03/07/19 04:54 Neut # (Auto) 2.6 x10^3/uL (2.2-4.8) 03/07/19 04:54 Lymph # (Auto) 1.2 X10^3/uL (1.3-2.9) L 03/07/19 04:54 [place] # (Auto) 0.8 x10^3/uL (0.3-0.8) 03/07/19 04:54 Eos # (Auto) 0.1 x10^3/uL (0.0-0.2) 03/07/19 04:54 Baso # (Auto) 0.0 X10^3/uL (0.0-0.1) 03/07/19 04:54 Absolute Nucleated RBC 0.1 /100WBC 03/07/19 04:54 Sodium 141 mmol/L (136-145) 03/07/19 04:54 Corrected Sodium 142 mmol/L (136-145) 03/07/19 04:54 Potassium 2.8 mmol/L (3.5-5.1) L* 03/07/19 04:54 Chloride 104 mmol/L (98-107) 03/07/19 04:54 Carbon Dioxide 25.6 mmol/L (21-32) 03/07/19 04:54 BUN 1 mg/dL (7-18) L 03/07/19 04:54 Creatinine 0.46 mg/dL (0.55-1.02) L 03/07/19 04:54 Est GFR (MDRD) Af Amer > 60 (>60) 03/07/19 04:54 Est GFR (MDRD) Non-Af > 60 (>60) 03/07/19 04:54 Glucose 127 mg/dL (65-99) H 03/07/19 04:54 Lactic Acid 3.0 mmol/L (0.4-2.0) H 03/03/19 14:11 Calcium 8.2 mg/dL (8.5-10.1) L 03/07/19 04:54 Corrected Calcium 9.6 mg/dL (8.5-10.1) 03/07/19 04:54 Magnesium 1.7 mg/dL (1.7-2.9) 03/07/19 04:54 Total Bilirubin 0.10 mg/dL (0.2-1.0) L 03/07/19 04:54 AST < 6 Units/L (15-37) L 03/07/19 04:54 ALT < 6 Units/L (12-78) L 03/07/19 04:54 Alkaline Phosphatase 66 Units/L (46-116) 03/07/19 04:54 Total Protein 5.6 g/dL (6.4-8.2) L 03/07/19 04:54 Albumin 2.2 g/dL (3.4-5.0) L 03/07/19 04:54 Globulin 3.4 g/dL (2.5-4.5) 03/07/19 04:54 Albumin/Globulin Ratio 0.6 Ratio (1.1-2.1) L 03/07/19 04:54 Prealbumin 12.6 mg/dL (18-35.7) L 03/06/19 04:26 Amylase 22 Units/L (25-115) L 03/04/19 04:43 Lipase 34 Units/L (73-393) L 03/04/19 04:43 Specimen Type Clean catch urine 03/03/19 23:55 Urine Color Yellow (YELLOW) 03/03/19 23:55 Urine Appearance Clear (CLEAR) 03/03/19 23:55 Urine pH 5.0 (5.0 - 8.0) 03/03/19 23:55 Ur Specific [place] 1.020 (1.000-1.030) 03/03/19 23:55 Urine Protein Negative (NEGATIVE) 03/03/19 23:55 Urine Glucose (UA) Negative (NEGATIVE) 03/03/19 23: Urine Ketones 1+ (NEGATIVE) 03/03/19 23:55 Urine Occult Blood 2+ (NEGATIVE) 03/03/19 23:55 Urine Nitrite Negative (NEGATIVE) 03/03/19 23:55 Urine Bilirubin Negative (NEGATIVE) 03/03/19 23: Urine Urobilinogen Normal (NORMAL) 03/03/19 23:55 Ur Leukocyte Esterase Negative (NEGATIVE) 03/03/19 23:55 Urine RBC 0-2 /HPF (0-3) 03/03/19 23:55 Urine WBC None seen /HPF (0-5) 03/03/19 23: Ur Squamous Epith Cells Moderate /HPF (NEGATIVE) 03/03/19 23:55 Urine Bacteria Negative /HPF (NEGATIVE) 03/03/19 23:55 Ur Culture Indicated? No/not indicated 03/03/19 23:55 - Assessment and Plan 1: abdominal pain . residual pelvic inflamation from diverticulitis and pelvic abscess ( s/p drainage ). large duodenal ulcer . weight loss with hypoalbuminemia. same IV ATB and hydraion . no need for surgery now . d/w Pt all options .. if surgery is needed , it will be colostomy till the inflamation subsides . on IV ATB and nutritional support . Pt is scheduled for GI endoscopy as OP next month . will follow in the office . - Problem Patient Problems: Patient Problems Abdominal abscess (Acute) Abdominal pain (Acute) R10.9 Nausea & vomiting (Acute) R11.2 Diarrhea (Acute) R19.7
[2019-03-07] MEDS: ALBUMIN HUMAN 25%- 100 ML 100 ML IV SCH (09:16)
[2019-03-07] MEDS: PROTONIX TAB 40 MG PO SCH ×2 (09:18→22:06)
[2019-03-07] MEDS: LOVENOX INJ 40 MG SYR SC SCH (09:18)
[2019-03-07] MEDS: FOLIC ACID TAB 1 MG PO SCH (09:18)
[2019-03-07] MEDS: PATIENT'S HOME MEDICATION PO SCH (09:21)
[2019-03-07] MEDS: CYMBALTA PO SCH (09:21)
[2019-03-07] MEDS: PROCALAMINE 3 % 1,000 ML IV SCH (10:58)
[2019-03-07] MEDS: CIPRO IV 400 MG PREMIX* 400 MG/200 ML IV.SOLN. IV SCH ×2 (10:59→22:02)
[2019-03-07] MEDS: MAG-OX TAB PO SCH (11:53)
--- NOTE | 2019-03-07 11:53 | PCM.PROG ---
Progress Note - Progress Note for Day of Date of Exam: 03/06/19 - Subjective Subjective: IS BEING TREATED FOR AN ABDOMINAL MASS, ABDOMINAL PAIN, AND N/V/D. TODAY, SHE IS ALERT AND ORIENTED, LYING IN BED ON MORNING ROUNDS. SHE CONTINUES WITH COMPLAINTS OF MILD ABDOMINAL PAIN, NAUSEA, AND GENERALIZED WEAKNESS. ON EXAMINATION, HEART IS REGULAR IN RATE AND RHYTHM. BILATERAL LUNGS ARE NOTED WITH DIMINISHED LUNG SOUNDS THROUGHOUT. ABDOMEN IS ROUND, SOFT, AND NOTED WITH DIFFUSE TENDERNESS TO PALPATION. HER VITALS THIS MORNING ARE: 98.1-81-18-97%-114/58. LABS WERE OBTAINED. ABNORMAL LAB VALUES INCLUDE THE FOLLOWING: HGB 11.2, HCT 33.9, BUN 1, CREATININE 0.42, GLUCOSE 102, AST 10, ALT 7, TOTAL PROTEIN 6.3, ALBUMIN 2.1. , GENERAL SURGEON CONTINUES TO MONITOR PATIENT. SHE IS CURRENTLY RECEIVING NORMAL SALINE AT 125ML/HR, IV CIPRO, ZOFRAN 4MG IV Q6H PRN, DEMEROL 50MG IV Q4H PRN. WE WILL CONTINUE WITH CURRENT PLAN OF CARE TODAY AND START IV TPN AND ALBUMIN 25% IV DAILY. OTHERWISE, WE PLAN TO FOLLOW UP WITH AM LABS AND CONTINUE TO MONITOR. - Past Medical Family Social History Past Med/Fam/Surg Hx: No changes since H&P Allergies: Allergies morphine Allergy (Verified 03/03/19 13:27) Penicillins Allergy (Verified 03/03/19 13:27) - Review of Systems ROS: No change since H&P - Vital Signs and I&O's Vital Signs: Temperature 98.2 F Pulse Rate [Right Brachial] 81 Pulse Rate [Left Brachial] 70 Pulse Rate 86 Respiratory Rate 18 Blood Pressure [Right Arm] 131/65 Blood Pressure [Left Arm] 111/61 Blood Pressure 104/52 O2 Sat by Pulse Oximetry 97 Intake and Output: Intake & Output 03/04/19 03/05/19 03/06/19 03/07/19 11:59 11:59 11:59 11:59 Intake Total 1170 / 1170 1160 / 1160 4560 / 4560 3730 / 3730 Output Total 300 / 300 Balance 870 / 870 1160 / 1160 4560 / 4560 3730 / 3730 - Physical Exam Oriented: Normal Eyes: Normal Ear: Normal Nose: Normal Throat: Normal Respiratory: Generalized, Diminished Cardiovascular: Normal : Normal Auscultation: Bowel Sounds: Normal Tenderness: Diffuse, Moderate. negative: Rebound, Guarding, Rigidity Skin: Normal Musculoskeletal: Normal Psychiatric: Normal Mood Description: Calm Affect: Normal Speech Pattern: Clear, Appropriate - Laboratory and Diagnostics Result Diagrams: 03/07/19 04:54 03/07/19 04:54 Labs: 03/03/19 14:11 Blood Blood Culture - Preliminary Laboratory WBC 4.7 X10^3/uL (3.6-10.0) 03/07/19 04:54 RBC 3.37 X10^6/uL (3.5-5.4) L 03/07/19 04:54 Hgb 9.9 g/dL (12.0-16.0) L 03/07/19 04:54 Hct 29.1 % (36.0-47.0) L 03/07/19 04:54 MCV 86.3 fL (80.0-100.0) 03/07/19 04:54 MCH 29.3 pg (27.0-34.0) 03/07/19 04:54 MCHC 34.0 g/dL (33.0-35.0) 03/07/19 04:54 RDW 18.0 % (11.6-16.5) H 03/07/19 04:54 Plt Count 334 X10^3/uL (150.0-450.0) 03/07/19 04:54 MPV 7.0 fL (7.4-11.0) L 03/07/19 04:54 Neut % (Auto) 54.9 % (42.0-75.0) 03/07/19 04:54 Lymph % (Auto) 25.8 % (21.0-51.0) 03/07/19 04:54 [place] % (Auto) 16.8 % (0.0-13.0) H 03/07/19 04:54 Eos % (Auto) 2.2 % (0.9-2.9) 03/07/19 04:54 Baso % (Auto) 0.3 % (0.2-1.0) 03/07/19 04:54 Neut # (Auto) 2.6 x10^3/uL (2.2-4.8) 03/07/19 04:54 Lymph # (Auto) 1.2 X10^3/uL (1.3-2.9) L 03/07/19 04:54 [place] # (Auto) 0.8 x10^3/uL (0.3-0.8) 03/07/19 04:54 Eos # (Auto) 0.1 x10^3/uL (0.0-0.2) 03/07/19 04:54 Baso # (Auto) 0.0 X10^3/uL (0.0-0.1) 03/07/19 04:54 Absolute Nucleated RBC 0.1 /100WBC 03/07/19 04:54 Sodium 141 mmol/L (136-145) 03/07/19 04:54 Corrected Sodium 142 mmol/L (136-145) 03/07/19 04:54 Potassium 2.8 mmol/L (3.5-5.1) L* 03/07/19 04:54 Chloride 104 mmol/L (98-107) 03/07/19 04:54 Carbon Dioxide 25.6 mmol/L (21-32) 03/07/19 04:54 BUN 1 mg/dL (7-18) L 03/07/19 04:54 Creatinine 0.46 mg/dL (0.55-1.02) L 03/07/19 04:54 Est GFR (MDRD) Af Amer > 60 (>60) 03/07/19 04:54 Est GFR (MDRD) Non-Af > 60 (>60) 03/07/19 04:54 Glucose 127 mg/dL (65-99) H 03/07/19 04:54 Lactic Acid 3.0 mmol/L (0.4-2.0) H 03/03/19 14:11 Calcium 8.2 mg/dL (8.5-10.1) L 03/07/19 04:54 Corrected Calcium 9.6 mg/dL (8.5-10.1) 03/07/19 04:54 Magnesium 1.7 mg/dL (1.7-2.9) 03/07/19 04:54 Total Bilirubin 0.10 mg/dL (0.2-1.0) L 03/07/19 04:54 AST < 6 Units/L (15-37) L 03/07/19 04:54 ALT < 6 Units/L (12-78) L 03/07/19 04:54 Alkaline Phosphatase 66 Units/L (46-116) 03/07/19 04:54 Total Protein 5.6 g/dL (6.4-8.2) L 03/07/19 04:54 Albumin 2.2 g/dL (3.4-5.0) L 03/07/19 04:54 Globulin 3.4 g/dL (2.5-4.5) 03/07/19 04:54 Albumin/Globulin Ratio 0.6 Ratio (1.1-2.1) L 03/07/19 04:54 Prealbumin 12.6 mg/dL (18-35.7) L 03/06/19 04:26 Amylase 22 Units/L (25-115) L 03/04/19 04:43 Lipase 34 Units/L (73-393) L 03/04/19 04:43 Specimen Type Clean catch urine 03/03/19 23:55 Urine Color Yellow (YELLOW) 03/03/19 23:55 Urine Appearance Clear (CLEAR) 03/03/19 23:55 Urine pH 5.0 (5.0 - 8.0) 03/03/19 23:55 Ur Specific [place] 1.020 (1.000-1.030) 03/03/19 23:55 Urine Protein Negative (NEGATIVE) 03/03/19 23:55 Urine Glucose (UA) Negative (NEGATIVE) 03/03/19 23:55 Urine Ketones 1+ (NEGATIVE) 03/03/19 23:55 Urine Occult Blood 2+ (NEGATIVE) 03/03/19 23:55 Urine Nitrite Negative (NEGATIVE) 03/03/19 23:55 Urine Bilirubin Negative (NEGATIVE) 03/03/19 23:55 Urine Urobilinogen Normal (NORMAL) 03/03/19 23:55 Ur Leukocyte Esterase Negative (NEGATIVE) 03/03/19 23:55 Urine RBC 0-2 /HPF (0-3) 03/03/19 23:55 Urine WBC None seen /HPF (0-5) 03/03/19 23:55 Ur Squamous Epith Cells Moderate /HPF (NEGATIVE) 03/03/19 23:55 Urine Bacteria Negative /HPF (NEGATIVE) 03/03/19 23:55 Ur Culture Indicated? No/not indicated 03/03/19 23:55 - Plan (1) Abdominal pain Status: Acute Qualifiers: Plan: NORMAL SALINE AT 125ML/HR, IV CIPRO, ZOFRAN 4MG IV Q6H PRN, DEMEROL 50MG IV Q4H PRN (2) Abdominal mass Status: Inactive Qualifiers: Abdominal location: unspecified location (3) Nausea & vomiting Status: Acute Qualifiers: Vomiting Intractability: intractable (4) Diarrhea Status: Acute Qualifiers: Diarrhea type: unspecified type Qualified Code(s): R19.7 - Diarrhea, unspecified (5) Generalized weakness Status: Inactive
[2019-03-07] MEDS ORDERED: NS + KCL 40 MEQ/L 1,000 ML IV SCH (12:00)
[2019-03-07] MEDS ORDERED: MAALOX or MYLANTA PO PRN (18:26)
--- NOTE | 2019-03-07 22:05 | PCM.PROG ---
Progress Note - Progress Note for Day of Date of Exam: 03/07/19 - Subjective Subjective: IS BEING TREATED FOR AN ABDOMINAL MASS, ABDOMINAL PAIN, AND N/V/D. TODAY, SHE IS ALERT AND ORIENTED, LYING IN BED ON MORNING ROUNDS. SHE CONTINUES WITH COMPLAINTS OF MILD ABDOMINAL PAIN AND WEAKNESS, BUT REPORTS IMPROVEMENT SINCE YESTERDAY. ON EXAMINATION, HEART IS REGULAR IN RATE AND RHYTHM. BILATERAL LUNGS ARE NOTED WITH DIMINISHED LUNG SOUNDS THROUGHOUT. ABDOMEN IS ROUND, SOFT, AND NOTED WITH DIFFUSE TENDERNESS TO PALPATION. HER VITALS THIS MORNING ARE: 98.2-81-18-97%-131/65. LABS WERE OBTAINED. ABNORMAL LAB VALUES INCLUDE THE FOLLOWING: RBC 3.37, HGB 9.9, HCT 29.1, POTASSIUM 2.8, BUN 1, CREATININE 0.46, GLUCOSE 127, CALCIUM 8.2, TOTAL BILU 0.10, AST <6, ALT <6, TOTAL BILI 5.6, ALBUMIN 2.2. , GENERAL SURGEON CONTINUES TO MONITOR PATIENT. SHE IS CURRENTLY RECEIVING NORMAL SALINE AT 125ML/HR, IV CIPRO, ZOFRAN 4MG IV Q6H PRN, DEMEROL 50MG IV Q4H PRN. WE WILL CONTINUE WITH CURRENT PLAN OF CARE TODAY. WE WILL REPEAT AN ABDOMEN/PELVIS CT WITH CONTRAST IN THE MORNING. OTHERWISE, WE PLAN TO FOLLOW UP WITH AM LABS AND CONTINUE TO MONITOR. - Past Medical Family Social History Past Med/Fam/Surg Hx: No changes since H&P Allergies: Allergies morphine Allergy (Verified 03/03/19 13:27) Penicillins Allergy (Verified 03/03/19 13:27) - Review of Systems ROS: No change since H&P - Vital Signs and I&O's Vital Signs: Temperature 98.9 F Pulse Rate [Right Brachial] 69 Pulse Rate [Left Brachial] 70 Pulse Rate 86 Respiratory Rate 18 Blood Pressure [Right Arm] 123/60 Blood Pressure [Left Arm] 111/61 Blood Pressure 104/52 O2 Sat by Pulse Oximetry 96 Intake and Output: Intake & Output 03/05/19 03/06/19 03/07/19 03/08/19 11:59 11:59 11:59 11:59 Intake Total 1160 / 1160 4560 / 4560 3730 / 3730 1999 Balance 1160 / 1160 4560 / 4560 3730 / 3730 1999 - Physical Exam Oriented: Normal Eyes: Normal Ear: Normal Nose: Normal Throat: Normal Respiratory: Generalized, Diminished Cardiovascular: Normal : Normal Auscultation: Bowel Sounds: Normal Palpation: Normal Tenderness: Diffuse, Moderate. negative: Rebound, Guarding, Rigidity Skin: Normal Musculoskeletal: Normal Psychiatric: Normal Mood Description: Calm Affect: Normal Speech Pattern: Clear, Appropriate - Laboratory and Diagnostics Result Diagrams: 03/07/19 04:54 03/07/19 11:28 Labs: 03/03/19 14:11 Blood Blood Culture - Preliminary Laboratory WBC 4.7 X10^3/uL (3.6-10.0) 03/07/19 04:54 RBC 3.37 X10^6/uL (3.5-5.4) L 03/07/19 04:54 Hgb 9.9 g/dL (12.0-16.0) L 03/07/19 04:54 Hct 29.1 % (36.0-47.0) L 03/07/19 04:54 MCV 86.3 fL (80.0-100.0) 03/07/19 04:54 MCH 29.3 pg (27.0-34.0) 03/07/19 04:54 MCHC 34.0 g/dL (33.0-35.0) 03/07/19 04:54 RDW 18.0 % (11.6-16.5) H 03/07/19 04:54 Plt Count 334 X10^3/uL (150.0-450.0) 03/07/19 04:54 MPV 7.0 fL (7.4-11.0) L 03/07/19 04:54 Neut % (Auto) 54.9 % (42.0-75.0) 03/07/19 04:54 Lymph % (Auto) 25.8 % (21.0-51.0) 03/07/19 04:54 [place] % (Auto) 16.8 % (0.0-13.0) H 03/07/19 04:54 Eos % (Auto) 2.2 % (0.9-2.9) 03/07/19 04:54 Baso % (Auto) 0.3 % (0.2-1.0) 03/07/19 04:54 Neut # (Auto) 2.6 x10^3/uL (2.2-4.8) 03/07/19 04:54 Lymph # (Auto) 1.2 X10^3/uL (1.3-2.9) L 03/07/19 04:54 [place] # (Auto) 0.8 x10^3/uL (0.3-0.8) 03/07/19 04:54 Eos # (Auto) 0.1 x10^3/uL (0.0-0.2) 03/07/19 04:54 Baso # (Auto) 0.0 X10^3/uL (0.0-0.1) 03/07/19 04:54 Absolute Nucleated RBC 0.1 /100WBC 03/07/19 04:54 Sodium 141 mmol/L (136-145) 03/07/19 04:54 Corrected Sodium 142 mmol/L (136-145) 03/07/19 04:54 Potassium 3.9 mmol/L (3.5-5.1) 03/07/19 11:28 Chloride 104 mmol/L (98-107) 03/07/19 04:54 Carbon Dioxide 25.6 mmol/L (21-32) 03/07/19 04:54 BUN 1 mg/dL (7-18) L 03/07/19 04:54 Creatinine 0.46 mg/dL (0.55-1.02) L 03/07/19 04:54 Est GFR (MDRD) Af Amer > 60 (>60) 03/07/19 04:54 Est GFR (MDRD) Non-Af > 60 (>60) 03/07/19 04:54 Glucose 127 mg/dL (65-99) H 03/07/19 04:54 Lactic Acid 3.0 mmol/L (0.4-2.0) H 03/03/19 14:11 Calcium 8.2 mg/dL (8.5-10.1) L 03/07/19 04:54 Corrected Calcium 9.6 mg/dL (8.5-10.1) 03/07/19 04:54 Magnesium 1.7 mg/dL (1.7-2.9) 03/07/19 04:54 Total Bilirubin 0.10 mg/dL (0.2-1.0) L 03/07/19 04:54 AST < 6 Units/L (15-37) L 03/07/19 04:54 ALT < 6 Units/L (12-78) L 03/07/19 04:54 Alkaline Phosphatase 66 Units/L (46-116) 03/07/19 04:54 Total Protein 5.6 g/dL (6.4-8.2) L 03/07/19 04:54 Albumin 2.2 g/dL (3.4-5.0) L 03/07/19 04:54 Globulin 3.4 g/dL (2.5-4.5) 03/07/19 04:54 Albumin/Globulin Ratio 0.6 Ratio (1.1-2.1) L 03/07/19 04:54 Prealbumin 12.6 mg/dL (18-35.7) L 03/06/19 04:26 Amylase 22 Units/L (25-115) L 03/04/19 04:43 Lipase 34 Units/L (73-393) L 03/04/19 04:43 Specimen Type Clean catch urine 03/03/19 23:55 Urine Color Yellow (YELLOW) 03/03/19 23:55 Urine Appearance Clear (CLEAR) 03/03/19 23:55 Urine pH 5.0 (5.0 - 8.0) 03/03/19 23:55 Ur Specific [place] 1.020 (1.000-1.030) 03/03/19 23:55 Urine Protein Negative (NEGATIVE) 03/03/19 23:55 Urine Glucose (UA) Negative (NEGATIVE) 03/03/19 23:55 Urine Ketones 1+ (NEGATIVE) 03/03/19 23:55 Urine Occult Blood 2+ (NEGATIVE) 03/03/19 23:55 Urine Nitrite Negative (NEGATIVE) 03/03/19 23:55 Urine Bilirubin Negative (NEGATIVE) 03/03/19 23:55 Urine Urobilinogen Normal (NORMAL) 03/03/19 23:55 Ur Leukocyte Esterase Negative (NEGATIVE) 03/03/19 23:55 Urine RBC 0-2 /HPF (0-3) 03/03/19 23:55 Urine WBC None seen /HPF (0-5) 03/03/19 23:55 Ur Squamous Epith Cells Moderate /HPF (NEGATIVE) 03/03/19 23:55 Urine Bacteria Negative /HPF (NEGATIVE) 03/03/19 23:55 Ur Culture Indicated? No/not indicated 03/03/19 23:55 - Plan (1) Abdominal pain Status: Acute Qualifiers: Plan: NORMAL SALINE AT 125ML/HR, IV CIPRO, ZOFRAN 4MG IV Q6H PRN, DEMEROL 50MG IV Q4H PRN (2) Abdominal mass Status: Inactive Qualifiers: Abdominal location: unspecified location (3) Nausea & vomiting Status: Acute Qualifiers: Vomiting Intractability: intractable (4) Diarrhea Status: Acute Qualifiers: Diarrhea type: unspecified type Qualified Code(s): R19.7 - Diarrhea, un specified (5) Generalized weakness Status: Inactive Plan: TPN, ALBUMIN, CONTINUE TO MONITOR
[2019-03-07] MEDS: ZOFRAN INJ 4 MG VIAL IVP PRN (22:15)
[2019-03-07] MEDS: DEMEROL INJ IVP PRN (22:19)
[2019-03-08] MEDS: NS + KCL 20 MEQ/L 1,000 ML IV SCH ×3 (02:19→13:56)
[2019-03-08] MEDS: FLAGYL IV PREMIX 500 MG BAG 500 MG/100 ML BAG IV SCH ×4 (02:20→20:46)
[2019-03-08 05:26] LABS: BASOPHILS % (AUTO) 0.6 % (0.2-1.0); EOSINOPHILS # (AUTO) 0.2 x10^3/uL (0.0-0.2); EOSINOPHILS % (AUTO) 3.6 % (0.9-2.9); HEMATOCRIT 31.9 % (36.0-47.0); HEMOGLOBIN 10.7 g/dL (12.0-16.0); LYMPHOCYTES # (AUTO) 1.6 X10^3/uL (1.3-2.9); LYMPHOCYTES % (AUTO) 35.8 % (21.0-51.0); MEAN CORPUSCULAR HEMOGLOBIN 29.3 pg (27.0-34.0); MEAN CORPUSCULAR HGB CONC 33.6 g/dL (33.0-35.0); MEAN CORPUSCULAR VOLUME 87.1 fL (80.0-100.0); MEAN PLATELET VOLUME 7.3 fL (7.4-11.0); MONOCYTES # (AUTO) 0.7 x10^3/uL (0.3-0.8); MONOCYTES % (AUTO) 16.1 % (0.0-13.0); NEUTROPHILS % (AUTO) 43.9 % (42.0-75.0); PLATELET COUNT 358 X10^3/uL (150.0-450.0); RED BLOOD COUNT 3.67 X10^6/uL (3.5-5.4); RED CELL DISTRIBUTION WIDTH 18.1 % (11.6-16.5); WHITE BLOOD COUNT 4.5 X10^3/uL (3.6-10.0)
[2019-03-08 05:42] LABS: ALANINE AMINOTRANSFERASE 8 Units/L (12-78); ALBUMIN 2.8 g/dL (3.4-5.0); ALKALINE PHOSPHATASE 68 Units/L (46-116); ASPARTATE AMINO TRANSFERASE 6 Units/L (15-37); BLOOD UREA NITROGEN 3 mg/dL (7-18); CALCIUM 8.8 mg/dL (8.5-10.1); CARBON DIOXIDE 28.3 mmol/L (21-32); CHLORIDE 104 mmol/L (98-107); COR CA(FOR HYPOALB) 9.8 mg/dL (8.5-10.1); MAGNESIUM 1.8 mg/dL (1.7-2.9); SODIUM 140 mmol/L (136-145); TOTAL PROTEIN 6.4 g/dL (6.4-8.2); eGFR NON BLACK RACES > 60 (>60)
[2019-03-08] MEDS ORDERED: NS 100 ML IV 100 ML IV ONE (06:31)
--- NOTE | 2019-03-08 07:47 | CT ---
HISTORY: Abdominal mass Study: CT abdomen pelvis with contrast Comparison: 03/05/2019 Technique: Axial post-contrast images with coronal and sagittal reformats. Dose reduction procedures were used with mA/kv adjusted for body size. Findings: The lung bases are clear with the exception of subsegmental atelectasis in the left lung base. There is a small left pleural effusion present. The liver, spleen, adrenal glands, and pancreas are within normal limits. No opaque stones are visible within the gallbladder. The kidneys are unobstructed and without visualized stones or masses. No ureteral calculi are identified. Calcific atherosclerotic changes present in a nondilated abdominal aorta. No enlarged retroperitoneal lymphadenopathy is identified. Scattered nonenlarged mesenteric lymph nodes are identified. There are no findings suggestive of diverticulitis or colitis. Once again noted in the pelvis is a head 9.9 by 4.7 by 5.2 cm rim enhancing pelvic gas and fluid collection consistent with recurrent abscess. It is slightly smaller than on the prior examination. It is of note that there is no orally ingested contrast visible within the collection. No pelvic lymphadenopathy or bladder abnormality is identified. No lytic or blastic skeletal lesions of significance are identified. IMPRESSION: 9.9 x 4.7 x 5.2 cm rim enhancing gas and fluid collection within the pelvis likely representing recurrent abscess. There has been a slight decrease in size since the prior examination. Reported By:
[2019-03-08] MEDS: CIPRO IV 400 MG PREMIX* 400 MG/200 ML IV.SOLN. IV SCH ×2 (08:53→20:46)
[2019-03-08] MEDS: ALBUMIN HUMAN 25%- 100 ML 100 ML IV SCH (08:53)
[2019-03-08] MEDS: FOLIC ACID TAB 1 MG PO SCH (08:54)
[2019-03-08] MEDS: PATIENT'S HOME MEDICATION PO SCH (08:54)
[2019-03-08] MEDS: MAG-OX TAB PO SCH (08:54)
[2019-03-08] MEDS: PROTONIX TAB 40 MG PO SCH ×2 (08:54→20:45)
[2019-03-08] MEDS: LOVENOX INJ 40 MG SYR SC SCH (08:55)
[2019-03-08] MEDS: CYMBALTA PO SCH (09:09)
[2019-03-08] MEDS: XOPENEX 1.25 MG/3 ML NEBULE NEB SCH ×2 (12:23→16:59)
--- NOTE | 2019-03-08 13:50 | DR.PROGNOT ---
Hospital Progress Notes - Progress Note for Day of: Progress Note Date: 03/08/19 - Chief Complaint Chief Complaint: mild mid and lower abdominal pain . no nausea or vomiting today . having loose BM , no bleeding . no fever this am . CBC , lytes , Amylase , Lipase and LFT all normal . abdominal and pelvic CT still showing collection in the pelvis related to old diverticulitis pelvic abscess . - Past Medical Family Social History Past Med/Fam/Surg Hx: No changes since H&P Allergies: Allergies morphine Allergy (Verified 03/03/19 13:27) Penicillins Allergy (Verified 03/03/19 13:27) - Review Of Systems ROS: No change since H&P - Vital Signs Vital Signs: Temperature 98.5 F Pulse Rate [Right Brachial] 60 Pulse Rate [Left Brachial] 70 Pulse Rate 60 Respiratory Rate 18 Blood Pressure [Right Arm] 124/64 Blood Pressure [Left Arm] 111/61 Blood Pressure 104/52 O2 Sat by Pulse Oximetry 97 - Physical Exam Oriented: Normal Eyes: Normal Ear: Normal Nose: Normal Throat: Normal Respiratory: Generalized, Diminished Cardiovascular: Normal : Normal GI:Auscultation: Normal GI:Palpation: Normal GI: Tenderness: Suprapubic (soft abdomen with mid and lower abdominal tenderness , no rebound , BS+), Moderate. negative: Rebound, Guarding, Rigidity Skin: Normal Musculoskeletal: Normal Psychiatric: Normal Mood Description: Calm Affect: Normal Speech Pattern: Clear, Appropriate - Laboratory and Diagnostics Result Diagrams: 03/08/19 04:29 03/08/19 04:29 Labs: 03/03/19 14:11 Blood Blood Culture - Preliminary Laboratory WBC 4.5 X10^3/uL (3.6-10.0) 03/08/19 04:29 RBC 3.67 X10^6/uL (3.5-5.4) 03/08/19 04:29 Hgb 10.7 g/dL (12.0-16.0) L 03/08/19 04:29 Hct 31.9 % (36.0-47.0) L 03/08/19 04:29 MCV 87.1 fL (80.0-100.0) 03/08/19 04:29 MCH 29.3 pg (27.0-34.0) 03/08/19 04:29 MCHC 33.6 g/dL (33.0-35.0) 03/08/19 04:29 RDW 18.1 % (11.6-16.5) H 03/08/19 04:29 Plt Count 358 X10^3/uL (150.0-450.0) 03/08/19 04:29 MPV 7.3 fL (7.4-11.0) L 03/08/19 04:29 Neut % (Auto) 43.9 % (42.0-75.0) 03/08/19 04:29 Lymph % (Auto) 35.8 % (21.0-51.0) 03/08/19 04:29 [place] % (Auto) 16.1 % (0.0-13.0) H 03/08/19 04: Eos % (Auto) 3.6 % (0.9-2.9) H 03/08/19 04:29 Baso % (Auto) 0.6 % (0.2-1.0) 03/08/19 04: Neut # (Auto) 2.0 x10^3/uL (2.2-4.8) L 03/08/19 04:29 Lymph # (Auto) 1.6 X10^3/uL (1.3-2.9) 03/08/19 04:29 [place] # (Auto) 0.7 x10^3/uL (0.3-0.8) 03/08/19 04:29 Eos # (Auto) 0.2 x10^3/uL (0.0-0.2) 03/08/19 04:29 Baso # (Auto) 0.0 X10^3/uL (0.0-0.1) 03/08/19 04:29 Absolute Nucleated RBC 0.1 /100WBC 03/08/19 04:29 Sodium 140 mmol/L (136-145) 03/08/19 04:29 Corrected Sodium TNP 03/08/19 04:29 Potassium 4.4 mmol/L (3.5-5.1) 03/08/19 04:29 Chloride 104 mmol/L (98-107) 03/08/19 04:29 Carbon Dioxide 28.3 mmol/L (21-32) 03/08/19 04:29 BUN 3 mg/dL (7-18) L 03/08/19 04:29 Creatinine 0.40 mg/dL (0.55-1.02) L 03/08/19 04:29 Est GFR (MDRD) Af Amer > 60 (>60) 03/08/19 04:29 Est GFR (MDRD) Non-Af > 60 (>60) 03/08/19 04:29 Glucose 99 mg/dL (65-99) 03/08/19 04:29 Lactic Acid 3.0 mmol/L (0.4-2.0) H 03/03/19 14:11 Calcium 8.8 mg/dL (8.5-10.1) 03/08/19 04:29 Corrected Calcium 9.8 mg/dL (8.5-10.1) 03/08/19 04:29 Magnesium 1.8 mg/dL (1.7-2.9) 03/08/19 04:29 Total Bilirubin 0.20 mg/dL (0.2-1.0) 03/08/19 04:29 AST 6 Units/L (15-37) L 03/08/19 04:29 ALT 8 Units/L (12-78) L 03/08/19 04:29 Alkaline Phosphatase 68 Units/L (46-116) 03/08/19 04:29 Total Protein 6.4 g/dL (6.4-8.2) 03/08/19 04:29 Albumin 2.8 g/dL (3.4-5.0) L 03/08/19 04:29 Globulin 3.6 g/dL (2.5-4.5) 03/08/19 04:29 Albumin/Globulin Ratio 0.8 Ratio (1.1-2.1) L 03/08/19 04:29 Prealbumin 12.6 mg/dL (18-35.7) L 03/06/19 04:26 Amylase 22 Units/L (25-115) L 03/04/19 04:43 Lipase 34 Units/L (73-393) L 03/04/19 04:43 Specimen Type Clean catch urine 03/03/19 23:55 Urine Color Yellow (YELLOW) 03/03/19 23:55 Urine Appearance Clear (CLEAR) 03/03/19 23:55 Urine pH 5.0 (5.0 - 8.0) 03/03/19 23:55 Ur Specific [place] 1.020 (1.000-1.030) 03/03/19 23: Urine Protein Negative (NEGATIVE) 03/03/19 23:55 Urine Glucose (UA) Negative (NEGATIVE) 03/03/19 23: Urine Ketones 1+ (NEGATIVE) 03/03/19 23:55 Urine Occult Blood 2+ (NEGATIVE) 03/03/19 23:55 Urine Nitrite Negative (NEGATIVE) 03/03/19 23: Urine Bilirubin Negative (NEGATIVE) 03/03/19 23: Urine Urobilinogen Normal (NORMAL) 03/03/19 23:55 Ur Leukocyte Esterase Negative (NEGATIVE) 03/03/19 23:55 Urine RBC 0-2 /HPF (0-3) 03/03/19 23: Urine WBC None seen /HPF (0-5) 03/03/19 23:55 Ur Squamous Epith Cells Moderate /HPF (NEGATIVE) 03/03/19 23:55 Urine Bacteria Negative /HPF (NEGATIVE) 03/03/19 23:55 Ur Culture Indicated? No/not indicated 03/03/19 23:55 - Assessment and Plan 1: chronic pelvic abscess ( s/p drainage ). recent diverticulitis. large duodenal ulcer . weight loss with hypoalbuminemia. same IV ATB and hydration . no need for surgery now . d/w Pt all options .. if surgery is needed , it will be colostomy till the inflamation subsides . on IV ATB and nutritional support . Pt is scheduled for GI endoscopy as OP next month . - Problem Patient Problems: Patient Problems Diarrhea (Acute) R19.7 Nausea & vomiting (Acute) R11.2 Abdominal pain (Acute) R10.9 Abdominal abscess (Acute)
[2019-03-08] MEDS: DEMEROL INJ IVP PRN (16:50)
[2019-03-08] MEDS: PROCALAMINE 3 % 1,000 ML IV SCH (16:51)
--- NOTE | 2019-03-08 21:30 | PCM.PROG ---
Progress Note - Progress Note for Day of Date of Exam: 03/08/19 - Subjective Subjective: IS BEING TREATED FOR AN ABDOMINAL MASS, ABDOMINAL PAIN, AND N/V/D. TODAY, SHE IS ALERT AND ORIENTED, LYING IN BED ON MORNING ROUNDS. SHE CONTINUES WITH COMPLAINTS OF MILD ABDOMINAL PAIN AND WEAKNESS, BUT REPORTS IMPROVEMENT SINCE YESTERDAY. ON EXAMINATION, HEART IS REGULAR IN RATE AND RHYTHM. BILATERAL LUNGS ARE NOTED WITH DIMINISHED LUNG SOUNDS THROUGHOUT. ABDOMEN IS ROUND, SOFT, AND NOTED WITH MILD, DIFFUSE TENDERNESS TO PALPATION. HER VITALS THIS MORNING ARE: 98.1-72-18-96%-126/60. LABS WERE OBTAINED. ABNORMAL LAB VALUES INCLUDE THE FOLLOWING: HGB 10.7, HCT 31.9, BUN 3, CREATININE 0.40, AST 6, ALT 8, ALBUMIN 2.8. BLOOD CULTURES ARE PENDING. AN ABDOMEN/PELVIS CT WAS REPEATED THIS MORNING AND REVEALED: 9.9 x 4.7 x 5.2 cm rim enhancing gas and fluid collection within the pelvis likely representing recurrent abscess. There has been a slight decrease in size. since the prior examination. , GENERAL SURGEON CONTINUES TO MONITOR PATIENT. SHE IS CURRENTLY RECEIVING NORMAL SALINE WITH 20MEQ KCL AT 80ML/HR, IV CIPRO, ZOFRAN 4MG IV Q6H PRN, DEMEROL 50MG IV Q4H PRN. WE WILL CONTINUE WITH CURRENT PLAN OF CARE TODAY. OTHERWISE, WE PLAN TO FOLLOW UP WITH AM LABS AND CONTINUE TO MONITOR. - Past Medical Family Social History Past Med/Fam/Surg Hx: No changes since H&P Allergies: Allergies morphine Allergy (Verified 03/03/19 13:27) Penicillins Allergy (Verified 03/03/19 13:27) - Review of Systems ROS: No change since H&P - Vital Signs and I&O's Vital Signs: Temperature 98.6 F Pulse Rate [Right Brachial] 71 Pulse Rate [Left Brachial] 70 Pulse Rate 60 Respiratory Rate 18 Blood Pressure [Right Arm] 126/61 Blood Pressure [Left Arm] 111/61 Blood Pressure 104/52 O2 Sat by Pulse Oximetry 96 Intake and Output: Intake & Output 03/06/19 03/07/19 03/08/19 03/09/19 11:59 11:59 11:59 11:59 Intake Total 4560 / 4560 3730 / 3730 3020 / 3020 1920 / 1920 Balance 4560 / 4560 3730 / 3730 3020 / 3020 1919 / 1919 - Physical Exam Oriented: Normal Eyes: Normal Ear: Normal Nose: Normal Throat: Normal Respiratory: Generalized, Diminished Cardiovascular: Normal : Normal Auscultation: Bowel Sounds: Normal Tenderness: Suprapubic (soft abdomen with mid and lower abdominal tenderness , no rebound , BS+), Moderate. negative: Rebound, Guarding, Rigidity Skin: Normal Musculoskeletal: Normal Psychiatric: Normal Mood Description: Calm Affect: Normal Speech Pattern: Clear, Appropriate - Laboratory and Diagnostics Result Diagrams: 03/08/19 04:29 03/08/19 04:29 Labs: 03/03/19 14:11 Blood Blood Culture - Final Laboratory WBC 4.5 X10^3/uL (3.6-10.0) 03/08/19 04:29 RBC 3.67 X10^6/uL (3.5-5.4) 03/08/19 04:29 Hgb 10.7 g/dL (12.0-16.0) L 03/08/19 04:29 Hct 31.9 % (36.0-47.0) L 03/08/19 04:29 MCV 87.1 fL (80.0-100.0) 03/08/19 04:29 MCH 29.3 pg (27.0-34.0) 03/08/19 04:29 MCHC 33.6 g/dL (33.0-35.0) 03/08/19 04:29 RDW 18.1 % (11.6-16.5) H 03/08/19 04:29 Plt Count 358 X10^3/uL (150.0-450.0) 03/08/19 04:29 MPV 7.3 fL (7.4-11.0) L 03/08/19 04:29 Neut % (Auto) 43.9 % (42.0-75.0) 03/08/19 04:29 Lymph % (Auto) 35.8 % (21.0-51.0) 03/08/19 04:29 Tucker % (Auto) 16.1 % (0.0-13.0) H 03/08/19 04:29 Eos % (Auto) 3.6 % (0.9-2.9) H 03/08/19 04:29 Baso % (Auto) 0.6 % (0.2-1.0) 03/08/19 04:29 Neut # (Auto) 2.0 x10^3/uL (2.2-4.8) L 03/08/19 04:29 Lymph # (Auto) 1.6 X10^3/uL (1.3-2.9) 03/08/19 04:29 Tucker # (Auto) 0.7 x10^3/uL (0.3-0.8) 03/08/19 04:29 Eos # (Auto) 0.2 x10^3/uL (0.0-0.2) 03/08/19 04:29 Baso # (Auto) 0.0 X10^3/uL (0.0-0.1) 03/08/19 04:29 Absolute Nucleated RBC 0.1 /100WBC 03/08/19 04:29 Sodium 140 mmol/L (136-145) 03/08/19 04:29 Corrected Sodium TNP 03/08/19 04:29 Potassium 4.4 mmol/L (3.5-5.1) 03/08/19 04:29 Chloride 104 mmol/L (98-107) 03/08/19 04:29 Carbon Dioxide 28.3 mmol/L (21-32) 03/08/19 04:29 BUN 3 mg/dL (7-18) L 03/08/19 04:29 Creatinine 0.40 mg/dL (0.55-1.02) L 03/08/19 04:29 Est GFR (MDRD) Af Amer > 60 (>60) 03/08/19 04:29 Est GFR (MDRD) Non-Af > 60 (>60) 03/08/19 04:29 Glucose 99 mg/dL (65-99) 03/08/19 04:29 Lactic Acid 3.0 mmol/L (0.4-2.0) H 03/03/19 14:11 Calcium 8.8 mg/dL (8.5-10.1) 03/08/19 04:29 Corrected Calcium 9.8 mg/dL (8.5-10.1) 03/08/19 04:29 Magnesium 1.8 mg/dL (1.7-2.9) 03/08/19 04:29 Total Bilirubin 0.20 mg/dL (0.2-1.0) 03/08/19 04:29 AST 6 Units/L (15-37) L 03/08/19 04:29 ALT 8 Units/L (12-78) L 03/08/19 04:29 Alkaline Phosphatase 68 Units/L (46-116) 03/08/19 04:29 Total Protein 6.4 g/dL (6.4-8.2) 03/08/19 04:29 Albumin 2.8 g/dL (3.4-5.0) L 03/08/19 04:29 Globulin 3.6 g/dL (2.5-4.5) 03/08/19 04:29 Albumin/Globulin Ratio 0.8 Ratio (1.1-2.1) L 03/08/19 04:29 Prealbumin 12.6 mg/dL (18-35.7) L 03/06/19 04:26 Amylase 22 Units/L (25-115) L 03/04/19 04:43 Lipase 34 Units/L (73-393) L 03/04/19 04:43 Specimen Type Clean catch urine 03/03/19 23:55 Urine Color Yellow (YELLOW) 03/03/19 23:55 Urine Appearance Clear (CLEAR) 03/03/19 23:55 Urine pH 5.0 (5.0 - 8.0) 03/03/19 23:55 Ur Specific [place] 1.020 (1.000-1.030) 03/03/19 23:55 Urine Protein Negative (NEGATIVE) 03/03/19 23:55 Urine Glucose (UA) Negative (NEGATIVE) 03/03/19 23:55 Urine Ketones 1+ (NEGATIVE) 03/03/19 23:55 Urine Occult Blood 2+ (NEGATIVE) 03/03/19 23:55 Urine Nitrite Negative (NEGATIVE) 03/03/19 23:55 Urine Bilirubin Negative (NEGATIVE) 03/03/19 23:55 Urine Urobilinogen Normal (NORMAL) 03/03/19 23:55 Ur Leukocyte Esterase Negative (NEGATIVE) 03/03/19 23:55 Urine RBC 0-2 /HPF (0-3) 03/03/19 23:55 Urine WBC None seen /HPF (0-5) 03/03/19 23:55 Ur Squamous Epith Cells Moderate /HPF (NEGATIVE) 03/03/19 23:55 Urine Bacteria Negative /HPF (NEGATIVE) 03/03/19 23:55 Ur Culture Indicated? No/not indicated 03/03/19 23:55 - Plan (1) Abdominal pain Status: Acute Qualifiers: Plan: NORMAL SALINE AT 125ML/HR, IV CIPRO, ZOFRAN 4MG IV Q6H PRN, DEMEROL 50MG IV Q4H PRN (2) Abdominal mass Status: Inactive Qualifiers: Abdominal location: unspecified location (3) Nausea & vomiting Status: Acute Qualifiers: Vomiting Intractability: intractable (4) Diarrhea Status: Acute Qualifiers: Diarrhea type: unspecified type Qualified Code(s): R19.7 - Diarrhea, unspecified (5) Generalized weakness Status: Inactive Plan: TPN, ALBUMIN, CONTINUE TO MONITOR
[2019-03-09] MEDS: XOPENEX 1.25 MG/3 ML NEBULE NEB SCH ×3 (00:45→12:05)
[2019-03-09] MEDS: FLAGYL IV PREMIX 500 MG BAG 500 MG/100 ML BAG IV SCH ×2 (02:45→09:59)
[2019-03-09] MEDS: NS + KCL 20 MEQ/L 1,000 ML IV SCH (02:46)
[2019-03-09 05:02] LABS: BASOPHILS % (AUTO) 0.7 % (0.2-1.0); EOSINOPHILS # (AUTO) 0.2 x10^3/uL (0.0-0.2); HEMATOCRIT 32.6 % (36.0-47.0); LYMPHOCYTES # (AUTO) 1.3 X10^3/uL (1.3-2.9); MEAN CORPUSCULAR HEMOGLOBIN 28.9 pg (27.0-34.0); MEAN CORPUSCULAR HGB CONC 33.6 g/dL (33.0-35.0); MEAN CORPUSCULAR VOLUME 85.9 fL (80.0-100.0); MEAN PLATELET VOLUME 6.3 fL (7.4-11.0); MONOCYTES # (AUTO) 0.6 x10^3/uL (0.3-0.8); MONOCYTES % (AUTO) 13.5 % (0.0-13.0); NEUTROPHILS # (AUTO) 2.1 x10^3/uL (2.2-4.8); NEUTROPHILS % (AUTO) 49.8 % (42.0-75.0); PLATELET COUNT 389 X10^3/uL (150.0-450.0); RED CELL DISTRIBUTION WIDTH 17.6 % (11.6-16.5); WHITE BLOOD COUNT 4.1 X10^3/uL (3.6-10.0)
[2019-03-09 05:11] LABS: ALANINE AMINOTRANSFERASE 9 Units/L (12-78); ALBUMIN 3.1 g/dL (3.4-5.0); ALKALINE PHOSPHATASE 62 Units/L (46-116); ASPARTATE AMINO TRANSFERASE 6 Units/L (15-37); BLOOD UREA NITROGEN 4 mg/dL (7-18); CALCIUM 9.2 mg/dL (8.5-10.1); CARBON DIOXIDE 28.1 mmol/L (21-32); CHLORIDE 106 mmol/L (98-107); COR CA(FOR HYPOALB) 9.9 mg/dL (8.5-10.1); CREATININE 0.42 mg/dL (0.55-1.02); SODIUM 142 mmol/L (136-145); TOTAL PROTEIN 6.6 g/dL (6.4-8.2); eGFR NON BLACK RACES > 60 (>60)
[2019-03-09] MEDS: PROTONIX TAB 40 MG PO SCH (09:13)
[2019-03-09] MEDS: FOLIC ACID TAB 1 MG PO SCH (09:13)
[2019-03-09] MEDS: MAG-OX TAB PO SCH (09:13)
[2019-03-09] MEDS: LOVENOX INJ 40 MG SYR SC SCH (09:14)
[2019-03-09] MEDS: ALBUMIN HUMAN 25%- 100 ML 100 ML IV SCH (09:15)
[2019-03-09] MEDS: PATIENT'S HOME MEDICATION PO SCH (09:17)
[2019-03-09] MEDS: CYMBALTA PO SCH (09:17)
[2019-03-09] MEDS: CIPRO IV 400 MG PREMIX* 400 MG/200 ML IV.SOLN. IV SCH (11:11)
[2019-03-09 12:08] VITALS: BP 111/55
== END 2019-03-09 13:10 | disposition home health service (06) | DRG 392 ==
LOC: ER 13:22 → MED/SURG 13:22 → OBSVTOIN 17:24 → INTOOBSV 17:24 → MED/SURG 17:53
PROVIDERS: ADMIT Obstetrics & Gynecology Obstetrics; ATTEND Internal Medicine
DX: R53.1 Weakness; K21.9 Gastro-esophageal reflux disease without esophagitis; R19.00 Intra-abdominal and pelvic swelling, mass and lump, unspecified site; Z87.19 Personal history of other diseases of the digestive system; K26.9 Duodenal ulcer, unspecified as acute or chronic, without hemorrhage or perforation; R11.2 Nausea with vomiting, unspecified; R19.7 Diarrhea, unspecified; Z98.0 Intestinal bypass and anastomosis status; R10.84 Generalized abdominal pain
CPT/HCPCS: 36415; 74176; 74177; 80053; 81001; 82150; 83605; 83690; 83735; 84132; 84134; 85025; 87040; 94640; 96365; 96367; 96374; 96375; 97161; 99284; A4216; A4222; B5200; P9047; S0030; G0378; J0744; J1650; J2175; J2405; J3475; J7030; J7050

== ENCOUNTER 2019-05-21 11:50 | Inpatient (IN) ==
[~2019-05-21 11:50] MED LIST: FLAGYL IV PREMIX 500 MG BAG 500 MG/100 ML BAG IV ONE
--- NOTE | 2019-05-21 12:45 | DR.NAUSEAF ---
HPI Time Seen Time Seen by Provider: 05/21/19 12:44 Primary Care Physician Primary Care Physician: mark HPI Comment HPI Comment: PATIENT IS 68YR OLD FEMALE IN ER WITH GENERALIZED WEAKNESS, VOMITING AND NAUSEA TIMES 2 DAYS. PATIENT HAD PERFORATED DIVERTICULI RECENTLY AND HAVE HAD PELVIC ABSCESS FEW TIMES SINCE. ABDOMINAL PAIN AND PROBLEM EATING SINCE. TWO DAYS AGO, PAIN GOT WORSE. NOT HOLDING DOWN FLUIDS AND MEDICATION. PATIENT IS WEAK AND DRAIN OF ENERGY. Complaints Chief Complaint Doctors Comments: GENERALIZED WEAKNESS AND VOMITING Chief Complaint:: vomiting/weakness Self Treatment fo Chief Complaint: zofran at home Reviewed Nurses Notes Reviewed: Yes Source History Provided: Patient Mode of Arrival Mode of Arrival: Wheelchair Timing Onset of Chief Complaint: 05/19/19 Context Onset: Spontaneous Recent: None History of: Abdominal Operation Quality Quality: Food Particles Associated Signs and Symptoms Abdominal Pain Quality: Cramping Abdominal Pain Location: Diffuse Symptoms: Abdominal Pain Other History Other History: HISTORY DIVERTICULITIS. PMH PMH Past Medical History: Yes Past Medical History: Anemia, Arthritis, Depression and GERD Past Medical History Comment: diverticulitis Past Surgical History: Yes Surgical History: Abdominal Surgery Family History History of Family Medical Conditions: Yes Family Medical History: Diabetes Mellitus and Cancer Social History Does patient currently use any type of tobacco product: Yes Have you used tobacco products in the last 12 months: Yes Type of Tobacco Use: Cigarettes Does any household member use tobacco: Yes Alcohol Use: None Do you use any recreational Drugs:: No Lives With: Alone Lives Where: Home infectious screening In the last 2 months have you had wt loss of >10#?: NO Have you had fever, night sweats or hemotysis?: No Have you traveled outside the country in the last 6 months?: No Isolation: Standard ROS Review of Systems Constitutional: See HPI, Weakness and Fatigue; negative Fever Eyes: No Symptoms Reported and See HPI ENTM: No Symptoms Reported and See HPI Respiratoy: No Symptoms Reported and See HPI; negative Moist Cough, Short of Breath and Wheezing Cardiovascular: No Symptoms Reported and See HPI; negative Chest Pain and Palpitations Gastrointestinal/Abdominal: See HPI, Abdominal Pain, Nausea and Vomiting; negative Constipation and Diarrhea Genitourinary: No Symptoms Reported and See HPI; negative Dysuria, Frequency and Hematuria Neurological: See HPI and Weakness; negative Headache and Dizziness Musculoskeletal: No Symptoms Reported and See HPI Integumentary: See HPI and Dryness; negative Change in Color, Rash and Juandice Hematologic/Lymphatic: No Symptoms Reported and See HPI; negative Easy Bruising and Swollen Glands Endocrine: See HPI, Increased Thirst and Decreased Appetite; negative Increased Urine Psychiatric: No Symptoms Reported and See HPI All Other Systems: Reviewed and Negative PE Vital Signs Vitals: Temperature 98.2 F Pulse Rate [Left Brachial] 62 Pulse Rate 68 Respiratory Rate 20 Blood Pressure [Right Arm] 121/56 Blood Pressure 100/54 O2 Sat by Pulse Oximetry 96 General Limitations: No Limitations General Appearance: Alert and In No Apparent Distress Head Head Exam: Normal Inspection Eyes Eye exam: Normal Appearance and PERRL; negative Scleral Icterus and Conjunctival Injection ENT ENT Exam: Normal Exam, Normal Oropharynx, Normal External Ear Exam and TM's Normal Bilaterally Neck Neck Exam: Normal Inspection and Trachea Midline; negative Tenderness and Lymphadenopathy Chest Chest Inspection: Normal Inspection and Symmetric Chest Wall Rise; negative Tenderness Respiratory Respiratory Exam: Normal Lung Sounds Bilat; negative Accessory Muscle Use, Chest Wall Tenderness and Respiratory Distress Respiratory Exam: Bilateral: Rhonchi and Lower: Rhonchi Cardiovascular Cardiovascular Exam: Regular Rate, Normal Rhythm and Normal Heart Sounds; negative Systolic Murmur and Diastolic Murmur Abdominal Exam Abdominal Exam: Normal Bowel Sounds, Soft and Tenderness Abdominal Tenderness: Diffuse and Moderate Rectal Rectal Exam: Deferred External Exam: Female: Deferred : Speculum Exam (Female): Deferred : Bimanual Exam (female): Deferred Extremities Extremities Exam: Normal Inspection Back Back Exam: Normal Inspection Neurologic Neurological Exam: Alert, Oriented X3 and CN II-XII Intact; negative Motor Sensory Deficit Psychiatric Psychiatric Exam: Normal Affect and Normal Mood Skin Skin Exam: Dry MDM Differential Diagnosis Differential Diagnosis: Considerations may Include:: Bowel Obstruction, Cholecystitis, Gastritis, Gastroenteritis, Inflammatory BD, Pancreatitis, Urinary Tract Infection, Urolithiasis and Other (DIVERTICULITIS.) COURSE Treatment Treatment: SEE ORDERS. NS 1L IV, ZOFRAN 4MG IV, DEMOROL 25MG IV, FLAGYL 5OOMG IVPB, ZOSYN 3.375MG IVPB. Reevaluation 1st: Improved (PAIN IMPROVING.) Consultation Consultation Comments: DR. SMITH, SURGEON CONSULTED. DR EDMONDS, CHEMICAL SALES REPRESENTATIVE MD ACCEPTED PATIENT FOR ADMISSION. Education/Counseling Education/Counseling: Patient Educated On: Diagnosis ROR Labs Reviewed Result Diagrams: 05/30/19 04:23 05/30/19 04:23 Laboratory: WBC 10.3 X10^3/uL (3.6-10.0) H 05/22/19 04:10 RBC 4.44 X10^6/uL (3.5-5.4) 05/22/19 04:10 Hgb 13.7 g/dL (12.0-16.0) 05/22/19 04:10 Hct 40.5 % (36.0-47.0) 05/22/19 04:10 MCV 91.3 fL (80.0-100.0) 05/22/19 04:10 MCH 31.0 pg (27.0-34.0) 05/22/19 04:10 MCHC 33.9 g/dL (33.0-35.0) 05/22/19 04:10 RDW 19.3 % (11.6-16.5) H 05/22/19 04:10 Plt Count 440 X10^3/uL (150.0-450.0) 05/22/19 04:10 MPV 7.7 fL (7.4-11.0) 05/22/19 04:10 Neut % (Auto) 66.9 % (42.0-75.0) 05/22/19 04:10 Lymph % (Auto) 21.0 % (21.0-51.0) 05/22/19 04:10 [place] % (Auto) 10.3 % (0.0-13.0) 05/22/19 04:10 Eos % (Auto) 1.2 % (0.9-2.9) 05/22/19 04:10 Baso % (Auto) 0.6 % (0.2-1.0) 05/22/19 04:10 Neut # (Auto) 6.9 x10^3/uL (2.2-4.8) H 05/22/19 04:10 Lymph # (Auto) 2.2 X10^3/uL (1.3-2.9) 05/22/19 04:10 [place] # (Auto) 1.1 x10^3/uL (0.3-0.8) H 05/22/19 04:10 Eos # (Auto) 0.1 x10^3/uL (0.0-0.2) 05/22/19 04:10 Baso # (Auto) 0.1 X10^3/uL (0.0-0.1) 05/22/19 04:10 Absolute Nucleated RBC 0.1 /100WBC 05/22/19 04:10 Sodium 136 mmol/L (136-145) 05/22/19 04:10 Corrected Sodium TNP 05/22/19 04:10 Potassium 3.2 mmol/L (3.5-5.1) L 05/22/19 04:10 Chloride 93 mmol/L (98-107) L 05/22/19 04:10 Carbon Dioxide 34.2 mmol/L (21-32) H 05/22/19 04:10 BUN 22 mg/dL (7-18) H 05/22/19 04:10 Creatinine 0.66 mg/dL (0.55-1.02) 05/22/19 04:10 Est GFR (MDRD) Af Amer > 60 (>60) 05/22/19 04:10 Est GFR (MDRD) Non-Af > 60 (>60) 05/22/19 04:10 Glucose 94 mg/dL (65-99) 05/22/19 04:10 Calcium 9.4 mg/dL (8.5-10.1) 05/22/19 04:10 Corrected Calcium 10.1 mg/dL (8.5-10.1) 05/22/19 04:10 Total Bilirubin 0.30 mg/dL (0.2-1.0) 05/22/19 04:10 AST 13 Units/L (15-37) L 05/22/19 04:10 ALT 13 Units/L (12-78) 05/22/19 04:10 Alkaline Phosphatase 91 Units/L (46-116) 05/22/19 04:10 Total Protein 7.5 g/dL (6.4-8.2) 05/22/19 04:10 Albumin 3.1 g/dL (3.4-5.0) L 05/22/19 04:10 Globulin 4.4 g/dL (2.5-4.5) 05/22/19 04:10 Albumin/Globulin Ratio 0.7 Ratio (1.1-2.1) L 05/22/19 04:10 Amylase 74 Units/L (25-115) 05/21/19 14:42 Lipase 110 Units/L (73-393) 05/21/19 14:42 Specimen Type Clean catch urine 05/21/19 14:51 Urine Color Yellow (YELLOW) 05/21/19 14:51 Urine Appearance Slightly hazy (CLEAR) 05/21/19 14:51 Urine pH 7.0 (5.0 - 8.0) 05/21/19 14:51 Ur Specific [place] 1.010 (1.000-1.030) 05/21/19 14:51 Urine Protein 1+ (NEGATIVE) 05/21/19 14:51 Urine Glucose (UA) Negative (NEGATIVE) 05/21/19 14:51 Urine Ketones 1+ (NEGATIVE) 05/21/19 14:51 Urine Occult Blood 2+ (NEGATIVE) 05/21/19 14:51 Urine Nitrite Negative (NEGATIVE) 05/21/19 14:51 Urine Bilirubin Negative (NEGATIVE) 05/21/19 14:51 Urine Urobilinogen Normal (NORMAL) 05/21/19 14:51 Ur Leukocyte Esterase 1+ (NEGATIVE) 05/21/19 14:51 Urine RBC 5-10 /HPF (0-3) A 05/21/19 14:51 Urine WBC 3-5 /HPF (0-5) 05/21/19 14:51 Ur Squamous Epith Cells Few /HPF (NEGATIVE) 05/21/19 14:51 Urine Bacteria Trace /HPF (NEGATIVE) 05/21/19 14:51 Ur Culture Indicated? No/not indicated 05/21/19 14:51 XRAY XRAY Interpreted by: Radiologist XRAY Findings: REPORT NOTED AND DISCUSSED WITH PATIENT. Opioid Opioid Risk Tool Age (Ever box if 16-45): No History of Preadolescent Sexual Abuse: No Total: 0 Total Score Risk Category: Low Risk Copyright: [place] predicting aberrant behaviors Diagnosis Discharge Problem: Abscess of pelvis, Acute dehydration Abdominal pain Qualifiers: Abdominal location: generalized Qualified Code(s): R10.84 - Generalized abdo ang[place] pain
[2019-05-21] MEDS ORDERED: ZOFRAN INJ 4 MG VIAL ONE ×2 (14:20→21:20)
[2019-05-21] MEDS ORDERED: NS 1000 ML 1,000 ML ONE (14:20)
[2019-05-21] MEDS: ZOFRAN INJ 4 MG VIAL IVP ONE ×2 (14:41→14:57)
[2019-05-21] MEDS: NS 1000 ML 1,000 ML IV SCH ×2 (14:42→23:02)
[2019-05-21 15:02] LABS: BASOPHILS # (AUTO) 0.1 X10^3/uL (0.0-0.1); BASOPHILS % (AUTO) 0.6 % (0.2-1.0); EOSINOPHILS % (AUTO) 0.6 % (0.9-2.9); HEMATOCRIT 43.7 % (36.0-47.0); LYMPHOCYTES # (AUTO) 2.3 X10^3/uL (1.3-2.9); LYMPHOCYTES % (AUTO) 26.2 % (21.0-51.0); MEAN CORPUSCULAR HEMOGLOBIN 30.9 pg (27.0-34.0); MEAN CORPUSCULAR HGB CONC 34.4 g/dL (33.0-35.0); MEAN CORPUSCULAR VOLUME 89.9 fL (80.0-100.0); MONOCYTES # (AUTO) 0.9 x10^3/uL (0.3-0.8); MONOCYTES % (AUTO) 10.1 % (0.0-13.0); NEUTROPHILS # (AUTO) 5.6 x10^3/uL (2.2-4.8); NEUTROPHILS % (AUTO) 62.5 % (42.0-75.0); PLATELET COUNT 513 X10^3/uL (150.0-450.0); RED BLOOD COUNT 4.86 X10^6/uL (3.5-5.4); RED CELL DISTRIBUTION WIDTH 19.2 % (11.6-16.5); WHITE BLOOD COUNT 8.9 X10^3/uL (3.6-10.0)
[2019-05-21 15:10] LABS: ALANINE AMINOTRANSFERASE 15 Units/L (12-78); ALBUMIN 3.6 g/dL (3.4-5.0); ALKALINE PHOSPHATASE 116 Units/L (46-116); AMYLASE 74 Units/L (25-115); ASPARTATE AMINO TRANSFERASE 16 Units/L (15-37); BLOOD UREA NITROGEN 26 mg/dL (7-18); CALCIUM 10.3 mg/dL (8.5-10.1); CHLORIDE 88 mmol/L (98-107); LIPASE 110 Units/L (73-393); SODIUM 133 mmol/L (136-145); TOTAL PROTEIN 8.7 g/dL (6.4-8.2); eGFR NON BLACK RACES > 60 (>60)
[2019-05-21 15:38] LABS: BILIRUBIN,URINE NEGATIVE (NEGATIVE); BLOOD/HEMOGLOBIN,URINE 2+ (NEGATIVE); GLUCOSE, URINE NEGATIVE (NEGATIVE); KETONES,URINE 1+ (NEGATIVE); LEUKOCYTE ESTERASE ,URINE 1+ (NEGATIVE); NITRITES,URINE NEGATIVE (NEGATIVE); PROTEIN,URINE 1+ (NEGATIVE); UROBILINOGEN,URINE NORMAL (NORMAL)
[2019-05-21 15:39] LABS: APPEARANCE,URINE SLIGHTLY HAZY (CLEAR); COLOR,URINE YELLOW (YELLOW)
[2019-05-21 15:43] LABS: BACTERIA,URINE TRACE /HPF (NEGATIVE); SQUAMOUS EPITHELIAL CELL,UR FEW /HPF (NEGATIVE)
[2019-05-21] MEDS ORDERED: DEMEROL INJ IVP ONE (16:59)
[2019-05-21] MEDS ORDERED: DEMEROL INJ ONE (17:05)
--- NOTE | 2019-05-21 18:46 | CT ---
ABDOMEN/PELVIS WITH CONIndication: Abdominal painTechnique: Helical CT images of the abdomen and pelvis were obtained with IV contrast. Reformatted images in the coronal and sagittal planes were also generated for review.Comparison: 05/09/2019Findings: Imaged lung bases are clear of acute infiltrates. No acute osseous abnormality.A few small probable hepatic cysts appear unchanged. The nondistended gallbladder, spleen, pancreas, adrenals and kidneys are unremarkable. Previously seen peripherally enhancing fluid collection within the lower pelvis appears larger on today's exam, measuring approximately 6.4 x 3.7 centimeters in AP by transverse dimension (previously 2.7 x 2.3 centimeters). There is moderate thickening of the adjacent distal colon, which could reflect colitis or may be reactive in nature. No definite oral contrast is identified within the pelvic collection. Multiple mildly dilated loops of distal small bowel is again seen and unchanged since prior. Contrast is seen to the level of the rectum without convincing evidence of obstruction. The appendix is absent. The abdominal aorta is calcified without aneurysm. The collapsed urinary bladder is grossly normal. Uterus is absent. No free air or bulky lymphadenopathy is identifiedImpression:1. Persistent and enlarging peripherally enhancing lower pelvic collection likely represents abscess, which now measures up to 6.4 centimeter in size, previously 2.7 centimeter.2. Moderate thickening of the adjacent distal colon, which could be reactive from adjacent suspected abscess or reflect colitis. No definite oral contrast is identified within the pelvic collection.3. Additional stable chronic findings as above.Electronically signed by: SORAYA ANDERSON (May 21, 2019 18:44:37)
[2019-05-21] MEDS ORDERED: FLAGYL IV PREMIX 500 MG BAG 500 MG/100 ML BAG IV ONE ×2 (20:27→20:41)
[2019-05-21] MEDS: ZOFRAN INJ 4 MG VIAL IVP PRN (21:25)
[2019-05-21] MEDS ORDERED: VANCOMYCIN HCL 1 G in D5W 250 ML IV 250 ML IV SCH (22:15)
[2019-05-21] MEDS ORDERED: PHARMACY CONSULT - VANCOMYCIN XX SCH (22:15)
[2019-05-22] MEDS ORDERED: VANCOMYCIN HCL 500 MG in D5W 100 ML IV 100 ML IV SCH ×2
[2019-05-22] MEDS: CYMBALTA PO SCH ×2 (00:05→09:12)
[2019-05-22 00:20] VITALS: BMI 12.8
[2019-05-22] MEDS: DEMEROL INJ IVP PRN ×3 (00:43→21:12)
[2019-05-22] MEDS ORDERED: NS 100 ML IV + SPIKE MINIBAG* 100 ML IV ONE (01:07)
[2019-05-22] MEDS ORDERED: VANCOMYCIN HCL ONE (01:07)
[2019-05-22] MEDS: NS 1000 ML 1,000 ML IV SCH (03:06)
[2019-05-22] MEDS: ZOFRAN INJ 4 MG VIAL IVP PRN (04:45)
[2019-05-22 05:29] LABS: BASOPHILS # (AUTO) 0.1 X10^3/uL (0.0-0.1); BASOPHILS % (AUTO) 0.6 % (0.2-1.0); EOSINOPHILS # (AUTO) 0.1 x10^3/uL (0.0-0.2); EOSINOPHILS % (AUTO) 1.2 % (0.9-2.9); HEMATOCRIT 40.5 % (36.0-47.0); HEMOGLOBIN 13.7 g/dL (12.0-16.0); LYMPHOCYTES # (AUTO) 2.2 X10^3/uL (1.3-2.9); MEAN CORPUSCULAR HGB CONC 33.9 g/dL (33.0-35.0); MEAN CORPUSCULAR VOLUME 91.3 fL (80.0-100.0); MEAN PLATELET VOLUME 7.7 fL (7.4-11.0); MONOCYTES # (AUTO) 1.1 x10^3/uL (0.3-0.8); MONOCYTES % (AUTO) 10.3 % (0.0-13.0); NEUTROPHILS # (AUTO) 6.9 x10^3/uL (2.2-4.8); NEUTROPHILS % (AUTO) 66.9 % (42.0-75.0); PLATELET COUNT 440 X10^3/uL (150.0-450.0); RED BLOOD COUNT 4.44 X10^6/uL (3.5-5.4); RED CELL DISTRIBUTION WIDTH 19.3 % (11.6-16.5); WHITE BLOOD COUNT 10.3 X10^3/uL (3.6-10.0)
[2019-05-22 05:46] LABS: ALANINE AMINOTRANSFERASE 13 Units/L (12-78); ALBUMIN 3.1 g/dL (3.4-5.0); ALKALINE PHOSPHATASE 91 Units/L (46-116); ASPARTATE AMINO TRANSFERASE 13 Units/L (15-37); BLOOD UREA NITROGEN 22 mg/dL (7-18); CALCIUM 9.4 mg/dL (8.5-10.1); CARBON DIOXIDE 34.2 mmol/L (21-32); CHLORIDE 93 mmol/L (98-107); COR CA(FOR HYPOALB) 10.1 mg/dL (8.5-10.1); CREATININE 0.66 mg/dL (0.55-1.02); SODIUM 136 mmol/L (136-145); TOTAL PROTEIN 7.5 g/dL (6.4-8.2); eGFR NON BLACK RACES > 60 (>60)
[2019-05-22] MEDS ORDERED: PEPCID 20 MG IV PREMIX* 50 ML IV PRN (05:58)
[2019-05-22] MEDS ORDERED: NS + KCL 20 MEQ/L 1,000 ML IV ONE (06:34)
[2019-05-22] MEDS: NS + KCL 20 MEQ/L 1,000 ML IV SCH ×3 (06:39→20:37)
[2019-05-22] MEDS ORDERED: PEPCID 20 MG IV PREMIX* 50 ML IV SCH (07:00)
[2019-05-22] MEDS: PEPCID 20 MG IV PREMIX* 10 MG/25 ML BAG IV PRN (07:09)
[2019-05-22] MEDS: FOLIC ACID TAB 1 MG PO SCH (09:12)
[2019-05-22] MEDS: NADOLOL 10 MG PO SCH (09:15)
[2019-05-22] MEDS ORDERED: STERILE WATER IRRIGATION IR ONE (09:27)
[2019-05-22] MEDS: FLAGYL TAB 250 MG PO SCH ×2 (10:35→20:38)
[2019-05-22] MEDS: INVANZ INJ 1 GM VIAL 1 GM in NS 100 ML IV + SPIKE MINIBAG* 100 ML IV SCH (10:45)
--- NOTE | 2019-05-22 11:42 | DR.H&P ---
H&P - History & Physical for Day of: H&P Date: 05/21/19 - Chief Complaint Chief Complaint: ABDOMINAL PAIN, WEAKNESS, N/V - History of Present Illness History of Present Illness: IS A 68 YEAR OLD PATIENT OF OURS WHO PRESENTED TO THE ER WITH COMPLAINTS OF VOMITING, WEAKNESS, AND ABDOMINAL PAIN X 2 DAYS. SHE REPORTS USING ZOFRAN AT HOME WITHOUT IMPROVEMENT IN SYMPTOMS. SHE REPORTS BEING UNABLE TO HOLD FOOD DOWN DUE TO VOMITING. SHE REPORTS UNSTEADY GAIT. SHE HAS A HISTORY OF DIVERTICULOSIS. SHE ALSO UNDERWENT DRAINAGE OF PELVIC ABSCESS, LYSIS OF EXTENSIVE ABDOMINAL ADHESIONS, AND TREATMENT FOR A PARTIAL SMALL BOWEL RESECTION X 2 WITH END TO END ANASTOMOSIS IN NOVEMBER OF 2018. SHE HAS BEEN TAKING FLAGYL 250MG PO BID AT HOME. ON ARRIVAL TO THE ER TODAY, VITALS WERE 98.4-91-18-97%-103/81. LABS WERE OBTAINED. ABNORMAL LAB VALUES INCLUDE THE FOLLOWING: PLT COUNT 513, SODIUM 133, CHLORIDE 88, CARBON DIOXIDE 34.0, BUN 26, GLUCOSE 110, CALCIUM 10.3, TOTAL PROTEIN 8.7, GLOBULIN 5.1. A URINALYSIS WAS OBTAINED AND REVEALED: WBC 3-5, RBC 5-10, LEUKOCYTES 1+, BACTERIA TRACE. AN ABDOMEN/PELVIS CT WITH CONTRAST WAS OBTAINED AND REVEALED: Persistent and enlarging peripherally enhancing lower pelvic collection likely represents abscess, which now measures up to 6.4 centimeter in size, previously 2.7 centimeter. Moderate thickening of the adjacent distal colon, which could be reactive from adjacent suspected abscess or reflect colitis. No definite oral contrast is identified within the pelvic collection. WAS NOTIFIED OF RESULTS. WE ADMITTED PATIENT FOR FURTHER EVALUATION AND TREATMENT OF MALNUTRITION, PELVIC ABSCESS, ABDOMINAL PAIN, AND N/V. SHE WAS STARTED ON INVANZ 1G IV DAILY, VANCOMYCIN 500MG IV DAILY, IV PEPCID, ZOFRAN 4MG IV Q8H PRN, DEMEROL 25MG IV Q6H PRN, AND HOME MEDICATIONS WERE RESUMED. WILL SEE PATIENT THIS MORNING. OTHERWISE, WE PLAN TO FOLLOW UP WITH AM LABS AND CONTINUE TO MONITOR. - Past Medical History Past Medical History: Depression, Anemia, GERD, Arthritis - Past Surgical History Surgical History: Abdominal Surgery - Family History Family Medical History: Diabetes Mellitus, Cancer - Social History Does patient currently use any type of tobacco product: Yes Have you used tobacco products in the last 12 months: Yes Type of Tobacco Use: Cigarettes Does any household member use tobacco: Yes Alcohol Use: None Drug Use: None Prescription drug monitoring program results: PDMP was not reviewed - Medications Home Medications: lorazepam [From Ativan] Allergy (Verified 05/22/19 06:02) morphine Allergy (Verified 05/21/19 12:02) Penicillins Allergy (Verified 05/21/19 12:02) CONTINUE taking the following medications metronidazole [Flagyl] 250 mg PO BID 05/21/19 [History] - Review of Systems Constitutional: See HPI, Weakness, Malaise, Other (DECREASED APPETITE ) Eyes: No Symptoms Reported ENT: No Symptoms Reported Respiratory: No Symptoms Reported Cardiovascular: No Symptoms Reported Gastrointestinal: See HPI, Nausea, Vomiting, Abdominal Pain Genitourinary: No Symptoms Reported Musculoskeletal: No Symptoms Reported Skin: No Symptoms Reported Neurological: Weakness - Physical Exam Vital Signs: Temperature 98.2 F Pulse Rate [Left Brachial] 62 Pulse Rate 68 Respiratory Rate 20 Blood Pressure [Right Arm] 121/56 Blood Pressure 100/54 O2 Sat by Pulse Oximetry 96 Oriented: Normal Eyes: Normal Ear: Normal Nose: Normal Throat: Normal Respiratory: Diminished Throughout Cardiovascular: Normal : Normal Auscultation: Bowel Sounds: Normal Palpation: Normal Tenderness: Diffuse, Moderate. negative: Rebound, Guarding, Rigidity Skin: Normal Musculoskeletal: Normal Psychiatric: Normal Mood Description: Calm Affect: Normal Speech Pattern: Clear - Assessment/Plan (1) Pelvic abscess Status: Acute Plan: ADMIT, SURGICAL CONSULT, INVANZ 1G IV DAILY, VANCOMYCIN 500MG IV DAILY, IV PEPCID, ZOFRAN 4MG IV Q8H PRN, DEMEROL 25MG IV Q6H PRN, AND HOME MEDICATIONS WERE RESUMED (2) Abdominal pain Qualifiers: Abdominal location: lower abdomen, unspecified Qualified Code(s): R10.30 - Lower abdominal pain, unspecified Status: Acute (3) Nausea & vomiting Qualifiers: Vomiting type: unspecified Vomiting Intractability: non-intractable Qualified Code(s): R11.2 - Nausea with vomiting, unspecified Status: Acute Plan: ZOFRAN 4MG IV Q8H PRN, CONTINUE TO MONITOR (4) Malnutrition Qualifiers: Malnutrition type: protein-calorie malnutrition Protein-calorie malnutr ition severity: unspecified severity Qualified Code(s): E46 - Unspecified protein-calorie malnutrition Status: Acute - Allergies Allergies/Adverse Reactions: Allergies Allergy/AdvReac Type Severity Reaction Status Date / Time lorazepam [From Ativan] Allergy Verified 05/22/19 06:02 morphine Allergy Verified 05/21/19 12:02 Penicillins Allergy Verified 05/21/19 12:02
[2019-05-22] MEDS: LOVENOX INJ 40 MG SYR SC SCH (11:47)
[2019-05-22] MEDS ORDERED: DIPRIVAN VIAL 20 ML ONE (13:54)
[2019-05-22] MEDS ORDERED: NS 500 ML IV 500 ML IV ONE (14:08)
--- NOTE | 2019-05-22 15:21 | DR.UPDATE ---
H&P Update History and Physical Update: History and Physical reviewed and patient examined. Changes noted: NO Yes with the following:agree with H&P. pt was examined and chart reviewed. will place tlc for tpn as asked by Dr Fuentes H&P Reviewed: Yes Patient was examined?: Yes Procedures (ALL) - Central Line Placement PCM.CLCO: written consent Time out performed: Yes Patient placed pm monitor/pulse ox: Yes MD prep: mask, gown, gloves, other Centrial line prep: chlorhexidine scrub Local anesthsia used: lidocane 1% Ultrasound used for placement: Yes (right IJ id'd) Central line lumen ininserted: triple Post procedure: sutured in place, good blood return, all ports aspirated, flushed,capped, sterile dressing applied Post procedure xray: tip oc catheter in good position (stat pCXR. Dr Fuentes satisfied with tip placement), no pneumothorax seen Patient tolerated procedure: Yes Complications: none
[2019-05-22] MEDS ORDERED: PHARMACY CONSULT - TPN XX SCH (16:00)
--- NOTE | 2019-05-22 16:01 | OR.IMMED ---
Immediate Post-Op Note - Immediate Post-Op Note Pre-Op Diagnosis: h/o Gastric ulcer with pyloric spasm. pelvic abscess with recurrent diverticulitis . malnutrition . anxiety and depression. Post-Op Diagnosis: distral gastric ulcer into the duodenal bulb . pyloric spasm with large amount of bile in the stomach . Procedure: EGD with Bx and brushing . Surgeon/Hand Tool Lapper: Irena Drains: NONE Condition: Stable (central line was placed . Pt will be started on TPN . IV Protonix , Carafate .and for diverting colostomy on wednesday .)
--- NOTE | 2019-05-22 16:08 | RAD ---
HISTORYcentral line placementSTUDYCHEST, 1 VIEWCOMPARISONNoneFINDINGSHeart size and pulmonary vasculature are normal. A right IJ line is identified with the tip of the catheter extending to the right atrium. No pneumothorax is seen. Increased interstitial markings are present in both upper lobe and right basilar region. These findings may be related to atelectasis or possible developing infiltrates. No significant effusion on either side. Bony thorax is unremarkable.IMPRESSION1. Right IJ line identified with the tip of the catheter in the right atrium. No pneumothorax2. Increased interstitial markings in both lower and right basilar region may be related to atelectasis or possible developing infiltratesElectronically signed by: SHANTAL HAYDEN (May 22, 2019 16:07:30)
[2019-05-22] MEDS ORDERED: DEXTROSE 10% 1,000 ML IV PRN (16:59)
[2019-05-22] MEDS ORDERED: HumuLIN R SUBCUT PRN (16:59)
[2019-05-22] MEDS: PROTONIX INJ 40 MG VIAL IVP SCH (17:14)
[2019-05-22] MEDS: CLINIMIX 5 %/20 % 1,000 ML with MVI INJ (ADULT) 10 ML, TRACE ELEMENTS INJ 10 ML, TPN EL... IV SCH ×8 (17:15→20:38)
[2019-05-22 18:38] LABS: MAGNESIUM 1.8 mg/dL (1.7-2.9); PHOSPHORUS 1.8 mg/dL (2.6-4.7)
[2019-05-22] MEDS: VANCOMYCIN HCL 750 MG in D5W 250 ML IV 250 ML IV SCH (20:38)
[2019-05-23] MEDS: NS + KCL 20 MEQ/L 1,000 ML IV SCH ×3 (00:45→18:13)
[2019-05-23 05:40] LABS: BASOPHILS # (AUTO) 0.1 X10^3/uL (0.0-0.1); BASOPHILS % (AUTO) 0.9 % (0.2-1.0); EOSINOPHILS # (AUTO) 0.2 x10^3/uL (0.0-0.2); EOSINOPHILS % (AUTO) 2.3 % (0.9-2.9); HEMATOCRIT 36.8 % (36.0-47.0); HEMOGLOBIN 12.5 g/dL (12.0-16.0); LYMPHOCYTES # (AUTO) 1.6 X10^3/uL (1.3-2.9); LYMPHOCYTES % (AUTO) 16.1 % (21.0-51.0); MEAN CORPUSCULAR HEMOGLOBIN 30.9 pg (27.0-34.0); MEAN CORPUSCULAR VOLUME 91.1 fL (80.0-100.0); MEAN PLATELET VOLUME 7.8 fL (7.4-11.0); MONOCYTES # (AUTO) 1.2 x10^3/uL (0.3-0.8); NEUTROPHILS # (AUTO) 6.9 x10^3/uL (2.2-4.8); NEUTROPHILS % (AUTO) 68.7 % (42.0-75.0); PLATELET COUNT 379 X10^3/uL (150.0-450.0); RED BLOOD COUNT 4.04 X10^6/uL (3.5-5.4); RED CELL DISTRIBUTION WIDTH 18.2 % (11.6-16.5); WHITE BLOOD COUNT 10.1 X10^3/uL (3.6-10.0)
[2019-05-23 05:44] LABS: PREALBUMIN 26.7 mg/dL (18-35.7)
[2019-05-23 05:51] LABS: ALANINE AMINOTRANSFERASE 10 Units/L (12-78); ALBUMIN 2.7 g/dL (3.4-5.0); ALKALINE PHOSPHATASE 83 Units/L (46-116); ASPARTATE AMINO TRANSFERASE 14 Units/L (15-37); BLOOD UREA NITROGEN 18 mg/dL (7-18); CALCIUM 8.8 mg/dL (8.5-10.1); CARBON DIOXIDE 28.7 mmol/L (21-32); CHLORIDE 98 mmol/L (98-107); COR CA(FOR HYPOALB) 9.8 mg/dL (8.5-10.1); CREATININE 0.43 mg/dL (0.55-1.02); SODIUM 134 mmol/L (136-145); TOTAL PROTEIN 6.5 g/dL (6.4-8.2); eGFR NON BLACK RACES > 60 (>60)
[2019-05-23] MEDS ORDERED: POTASSIUM CHL 40 MEQ/NS 0.45% 500 ML IV PRN (06:23)
[2019-05-23] MEDS ORDERED: POTASSIUM CHL 60 MEQ/NS 0.45% 500 ML IV PRN (06:23)
[2019-05-23] MEDS ORDERED: POTASSIUM CHLORIDE LIQ 20 MEQ UDC PO PRN (06:23)
[2019-05-23] MEDS ORDERED: MICRO K EXTEN CAP 10 MEQ PO PRN (06:23)
[2019-05-23] MEDS ORDERED: K-DUR TAB 20 MEQ PO PRN (06:23)
[2019-05-23] MEDS ORDERED: KLOR-CON PO PRN (06:23)
[2019-05-23] MEDS: INVANZ INJ 1 GM VIAL 1 GM in NS 100 ML IV + SPIKE MINIBAG* 100 ML IV SCH (09:14)
[2019-05-23] MEDS: PROTONIX INJ 40 MG VIAL IVP SCH (09:16)
[2019-05-23] MEDS: FOLIC ACID TAB 1 MG PO SCH (09:17)
[2019-05-23] MEDS: LOVENOX INJ 40 MG SYR SC SCH (09:17)
[2019-05-23] MEDS: FLAGYL TAB 250 MG PO SCH ×2 (09:17→21:10)
[2019-05-23] MEDS: CYMBALTA PO SCH (09:22)
[2019-05-23] MEDS: CLINIMIX 5 %/20 % 1,000 ML with MVI INJ (ADULT) 10 ML, TRACE ELEMENTS INJ 10 ML, TPN EL... IV SCH ×8 (09:22→21:10)
[2019-05-23] MEDS: NADOLOL 10 MG PO SCH (09:23)
[2019-05-23] MEDS: VANCOMYCIN HCL 750 MG in D5W 250 ML IV 250 ML IV SCH ×2 (10:56→21:11)
[2019-05-23] MEDS: ZOFRAN INJ 4 MG VIAL IVP PRN (13:00)
--- NOTE | 2019-05-23 15:42 | DR.PROGNOT ---
Hospital Progress Notes - Progress Note for Day of: Progress Note Date: 05/23/19 - Chief Complaint Chief Complaint: moderate abdominal pain . no nausea or vomiting today . was started on TPN already. K 3.2. BS 192. .. Albumin 2.7 .. LFT normal . - Past Medical Family Social History Past Med/Fam/Surg Hx: No changes since H&P Allergies: Allergies lorazepam [From Ativan] Allergy (Verified 05/22/19 06:02) morphine Allergy (Verified 05/21/19 12:02) Penicillins Allergy (Verified 05/21/19 12:02) - Review Of Systems ROS: No change since H&P - Vital Signs Vital Signs: Temperature 98.2 F Pulse Rate [Left Brachial] 69 Pulse Rate 68 Respiratory Rate 18 Blood Pressure [Left Arm] 93/54 Blood Pressure [Right Arm] 124/58 Blood Pressure 100/54 O2 Sat by Pulse Oximetry 98 - Physical Exam Oriented: Normal Eyes: Normal Ear: Normal Nose: Normal Throat: Normal Respiratory: Normal Cardiovascular: Normal : Normal GI:Auscultation: Normal GI:Palpation: Normal GI: Tenderness: Diffuse (mainly lower abdomen and epigastrium . BS+), Moderate. negative: Rebound, Guarding, Rigidity Skin: Normal Musculoskeletal: Normal Psychiatric: Normal Mood Description: Calm Affect: Normal Speech Pattern: Clear, Appropriate - Laboratory and Diagnostics Result Diagrams: 05/23/19 04:32 05/23/19 04:32 Labs: Laboratory WBC 10.1 X10^3/uL (3.6-10.0) H 05/23/19 04:32 RBC 4.04 X10^6/uL (3.5-5.4) 05/23/19 04:32 Hgb 12.5 g/dL (12.0-16.0) 05/23/19 04:32 Hct 36.8 % (36.0-47.0) 05/23/19 04:32 MCV 91.1 fL (80.0-100.0) 05/23/19 04:32 MCH 30.9 pg (27.0-34.0) 05/23/19 04:32 MCHC 34.0 g/dL (33.0-35.0) 05/23/19 04:32 RDW 18.2 % (11.6-16.5) H 05/23/19 04:32 Plt Count 379 X10^3/uL (150.0-450.0) 05/23/19 04:32 MPV 7.8 fL (7.4-11.0) 05/23/19 04:32 Neut % (Auto) 68.7 % (42.0-75.0) 05/23/19 04:32 Lymph % (Auto) 16.1 % (21.0-51.0) L 05/23/19 04:32 [place] % (Auto) 12.0 % (0.0-13.0) 05/23/19 04:32 Eos % (Auto) 2.3 % (0.9-2.9) 05/23/19 04:32 Baso % (Auto) 0.9 % (0.2-1.0) 05/23/19 04:32 Neut # (Auto) 6.9 x10^3/uL (2.2-4.8) H 05/23/19 04:32 Lymph # (Auto) 1.6 X10^3/uL (1.3-2.9) 05/23/19 04:32 [place] # (Auto) 1.2 x10^3/uL (0.3-0.8) H 05/23/19 04:32 Eos # (Auto) 0.2 x10^3/uL (0.0-0.2) 05/23/19 04:32 Baso # (Auto) 0.1 X10^3/uL (0.0-0.1) 05/23/19 04:32 Absolute Nucleated RBC 0.0 /100WBC 05/23/19 04:32 Sodium 134 mmol/L (136-145) L 05/23/19 04:32 Corrected Sodium TNP 05/23/19 04:32 Potassium 3.2 mmol/L (3.5-5.1) L 05/23/19 04:32 Chloride 98 mmol/L (98-107) 05/23/19 04:32 Carbon Dioxide 28.7 mmol/L (21-32) 05/23/19 04:32 BUN 18 mg/dL (7-18) 05/23/19 04:32 Creatinine 0.43 mg/dL (0.55-1.02) L 05/23/19 04:32 Est GFR (MDRD) Af Amer > 60 (>60) 05/23/19 04:32 Est GFR (MDRD) Non-Af > 60 (>60) 05/23/19 04:32 Glucose 59 mg/dL (65-99) L 05/23/19 04:32 POC Glucose (mg/dL) 192 mg/dL (65-99) H 05/23/19 15:10 Calcium 8.8 mg/dL (8.5-10.1) 05/23/19 04:32 Corrected Calcium 9.8 mg/dL (8.5-10.1) 05/23/19 04:32 Phosphorus 1.8 mg/dL (2.6-4.7) L 05/22/19 17:58 Magnesium 1.8 mg/dL (1.7-2.9) 05/22/19 17:58 Total Bilirubin 0.20 mg/dL (0.2-1.0) 05/23/19 04:32 AST 14 Units/L (15-37) L 05/23/19 04:32 ALT 10 Units/L (12-78) L 05/23/19 04:32 Alkaline Phosphatase 83 Units/L (46-116) 05/23/19 04:32 Total Protein 6.5 g/dL (6.4-8.2) 05/23/19 04:32 Albumin 2.7 g/dL (3.4-5.0) L 05/23/19 04:32 Globulin 3.8 g/dL (2.5-4.5) 05/23/19 04:32 Albumin/Globulin Ratio 0.7 Ratio (1.1-2.1) L 05/23/19 04:32 Prealbumin 26.7 mg/dL (18-35.7) 05/23/19 04:32 Triglycerides 82 mg/dL (0-150) 05/22/19 17:58 Amylase 74 Units/L (25-115) 05/21/19 14:42 Lipase 110 Units/L (73-393) 05/21/19 14:42 Specimen Type Clean catch urine 05/21/19 14:51 Urine Color Yellow (YELLOW) 05/21/19 14:51 Urine Appearance Slightly hazy (CLEAR) 05/21/19 14:51 Urine pH 7.0 (5.0 - 8.0) 05/21/19 14:51 Ur Specific [place] 1.010 (1.000-1.030) 05/21/19 14:51 Urine Protein 1+ (NEGATIVE) 05/21/19 14:51 Urine Glucose (UA) Negative (NEGATIVE) 05/21/19 14:51 Urine Ketones 1+ (NEGATIVE) 05/21/19 14:51 Urine Occult Blood 2+ (NEGATIVE) 05/21/19 14:51 Urine Nitrite Negative (NEGATIVE) 05/21/19 14:51 Urine Bilirubin Negative (NEGATIVE) 05/21/19 14:51 Urine Urobilinogen Normal (NORMAL) 05/21/19 14:51 Ur Leukocyte Esterase 1+ (NEGATIVE) 05/21/19 14:51 Urine RBC 5-10 /HPF (0-3) A 05/21/19 14:51 Urine WBC 3-5 /HPF (0-5) 05/21/19 14:51 Ur Squamous Epith Cells Few /HPF (NEGATIVE) 05/21/19 14:51 Urine Bacteria Trace /HPF (NEGATIVE) 05/21/19 14:51 Ur Culture Indicated? No/not indicated 05/21/19 14:51 Cytology Specimen To follow 05/22/19 14:25 Tissue Pathology To follow 05/22/19 14:19 - Assessment and Plan 1: Pelvic abscess 2nd sigmoid diverticulitis . chronic peptic ulcer with pyloric spasm and vomiting . chronic malnutrition . same TPN . for complete diverting transverse costomy in am .. same IV ATB . - Problem Patient Problems: Patient Problems Pelvic abscess (Acute) Malnutrition (Acute) E46
[2019-05-23] MEDS ORDERED: PHARMACY COMMENT IV NR (20:30)
--- NOTE | 2019-05-23 20:48 | PCM.PROG ---
Progress Note - Progress Note for Day of Date of Exam: 05/23/19 - Subjective Subjective: WAS ADMITTED FOR TREATMENT OF MALNUTRITION, PELVIC ABSCESS, ABDOMINAL PAIN, AND N/V. TODAY, SHE IS ALERT AND ORIENTED, LYING IN BED ON MORNING ROUNDS. SHE CONTINUES WITH COMPLAINTS OF ABDOMINAL PAIN AND NAUSEA. ON EXAMINATION, HEART IS REGULAR IN RATE AND RHYTHM. BILATERAL LUNGS ARE NOTED WITH DIMINISHED LUNG SOUNDS THROUGHOUT. ABDOMEN IS FLAT, SOFT, AND NOTED WITH DIFFUSE TENDERNESS. HYPOACTIVE BOWEL SOUNDS ARE NOTED IN ALL QUARANTS. HER VITALS THIS MORNING ARE: 97.8-70-18-98%-106/52. LABS WERE OBTAINED. ABNORMAL LAB VALUES INCLUDE THE FOLLOWING: WBC 10.1, SODIUM 134, POTASSIUM 3.2, CREATININE 0.43, GLUCOSE 59, AST 14, ALT 10, ALBUMIN 2.7. PERFORMED AN EGD YESTERDAY. FINDINGS INCLUDED: Distal gastric ulcer involving the distal antrum and duodenal bulb with spasm. A large amount of bile in the stomach. HE PLANS FOR A COMPLETE DIVERTING TRANSVERSE COLOSTOMY TODAY. WE ARE IN AGREEMENT WITH PLAN. SHE IS CURRENTLY RECEIVING: INVANZ 1G IV DAILY, VANCOMYCIN 500MG IV DAILY, IV PEPCID, ZOFRAN 4MG IV Q8H PRN, DEMEROL 25MG IV Q6H PRN, AND HOME MEDICATIONS WERE RESUMED. WE WILL CONTINUE WITH CURRENT PLAN OF CARE TODAY. OTHERWISE, WE PLAN TO FOLLOW UP WITH AM LABS AND CONTINUE TO MONITOR. - Past Medical Family Social History Past Med/Fam/Surg Hx: No changes since H&P Allergies: Allergies lorazepam [From Ativan] Allergy (Verified 05/22/19 06:02) morphine Allergy (Verified 05/21/19 12:02) Penicillins Allergy (Verified 05/21/19 12:02) - Review of Systems ROS: No change since H&P - Vital Signs and I&O's Vital Signs: Temperature 98.5 F Pulse Rate [Left Brachial] 66 Pulse Rate 68 Respiratory Rate 18 Blood Pressure [Left Arm] 106/58 Blood Pressure [Right Arm] 124/58 Blood Pressure 100/54 O2 Sat by Pulse Oximetry 100 Intake and Output: Intake & Output 05/21/19 05/22/19 05/23/19 05/24/19 11:59 11:59 11:59 11:59 Intake Total 60 / 60 1832 / 1832 480 / 480 Output Total 300 / 300 150 / 150 Balance -240 / -240 1682 / 1682 480 / 480 - Physical Exam Oriented: Normal Eyes: Normal Ear: Normal Nose: Normal Throat: Normal Respiratory: Generalized, Diminished Cardiovascular: Normal : Normal Auscultation: Bowel Sounds: Normal Palpation: Normal Tenderness: Diffuse (mainly lower abdomen and epigastrium . BS+), Moderate. negative: Rebound, Guarding, Rigidity Skin: Normal Musculoskeletal: Normal Psychiatric: Normal Mood Description: Calm Affect: Normal Speech Pattern: Clear, Appropriate - Laboratory and Diagnostics Result Diagrams: 05/23/19 04:32 05/23/19 19:07 Labs: Laboratory WBC 10.1 X10^3/uL (3.6-10.0) H 05/23/19 04:32 RBC 4.04 X10^6/uL (3.5-5.4) 05/23/19 04:32 Hgb 12.5 g/dL (12.0-16.0) 05/23/19 04:32 Hct 36.8 % (36.0-47.0) 05/23/19 04:32 MCV 91.1 fL (80.0-100.0) 05/23/19 04:32 MCH 30.9 pg (27.0-34.0) 05/23/19 04:32 MCHC 34.0 g/dL (33.0-35.0) 05/23/19 04:32 RDW 18.2 % (11.6-16.5) H 05/23/19 04:32 Plt Count 379 X10^3/uL (150.0-450.0) 05/23/19 04:32 MPV 7.8 fL (7.4-11.0) 05/23/19 04:32 Neut % (Auto) 68.7 % (42.0-75.0) 05/23/19 04:32 Lymph % (Auto) 16.1 % (21.0-51.0) L 05/23/19 04:32 [place] % (Auto) 12.0 % (0.0-13.0) 05/23/19 04:32 Eos % (Auto) 2.3 % (0.9-2.9) 05/23/19 04:32 Baso % (Auto) 0.9 % (0.2-1.0) 05/23/19 04:32 Neut # (Auto) 6.9 x10^3/uL (2.2-4.8) H 05/23/19 04:32 Lymph # (Auto) 1.6 X10^3/uL (1.3-2.9) 05/23/19 04:32 [place] # (Auto) 1.2 x10^3/uL (0.3-0.8) H 05/23/19 04:32 Eos # (Auto) 0.2 x10^3/uL (0.0-0.2) 05/23/19 04:32 Baso # (Auto) 0.1 X10^3/uL (0.0-0.1) 05/23/19 04:32 Absolute Nucleated RBC 0.0 /100WBC 05/23/19 04:32 Sodium 134 mmol/L (136-145) L 05/23/19 04:32 Corrected Sodium TNP 05/23/19 04:32 Potassium 3.1 mmol/L (3.5-5.1) L 05/23/19 19:07 Chloride 98 mmol/L (98-107) 05/23/19 04:32 Carbon Dioxide 28.7 mmol/L (21-32) 05/23/19 04:32 BUN 18 mg/dL (7-18) 05/23/19 04:32 Creatinine 0.43 mg/dL (0.55-1.02) L 05/23/19 04:32 Est GFR (MDRD) Af Amer > 60 (>60) 05/23/19 04:32 Est GFR (MDRD) Non-Af > 60 (>60) 05/23/19 04:32 Glucose 59 mg/dL (65-99) L 05/23/19 04:32 POC Glucose (mg/dL) 177 mg/dL (65-99) H 05/23/19 17:34 Calcium 8.8 mg/dL (8.5-10.1) 05/23/19 04:32 Corrected Calcium 9.8 mg/dL (8.5-10.1) 05/23/19 04:32 Phosphorus 1.8 mg/dL (2.6-4.7) L 05/22/19 17:58 Magnesium 1.8 mg/dL (1.7-2.9) 05/22/19 17:58 Total Bilirubin 0.20 mg/dL (0.2-1.0) 05/23/19 04:32 AST 14 Units/L (15-37) L 05/23/19 04:32 ALT 10 Units/L (12-78) L 05/23/19 04:32 Alkaline Phosphatase 83 Units/L (46-116) 05/23/19 04:32 Total Protein 6.5 g/dL (6.4-8.2) 05/23/19 04:32 Albumin 2.7 g/dL (3.4-5.0) L 05/23/19 04:32 Globulin 3.8 g/dL (2.5-4.5) 05/23/19 04:32 Albumin/Globulin Ratio 0.7 Ratio (1.1-2.1) L 05/23/19 04:32 Prealbumin 26.7 mg/dL (18-35.7) 05/23/19 04:32 Triglycerides 82 mg/dL (0-150) 05/22/19 17:58 Amylase 74 Units/L (25-115) 05/21/19 14:42 Lipase 110 Units/L (73-393) 05/21/19 14:42 Specimen Type Clean catch urine 05/21/19 14:51 Urine Color Yellow (YELLOW) 05/21/19 14:51 Urine Appearance Slightly hazy (CLEAR) 05/21/19 14:51 Urine pH 7.0 (5.0 - 8.0) 05/21/19 14:51 Ur Specific [place] 1.010 (1.000-1.030) 05/21/19 14:51 Urine Protein 1+ (NEGATIVE) 05/21/19 14:51 Urine Glucose (UA) Negative (NEGATIVE) 05/21/19 14:51 Urine Ketones 1+ (NEGATIVE) 05/21/19 14:51 Urine Occult Blood 2+ (NEGATIVE) 05/21/19 14:51 Urine Nitrite Negative (NEGATIVE) 05/21/19 14:51 Urine Bilirubin Negative (NEGATIVE) 05/21/19 14:51 Urine Urobilinogen Normal (NORMAL) 05/21/19 14:51 Ur Leukocyte Esterase 1+ (NEGATIVE) 05/21/19 14:51 Urine RBC 5-10 /HPF (0-3) A 05/21/19 14:51 Urine WBC 3-5 /HPF (0-5) 05/21/19 14:51 Ur Squamous Epith Cells Few /HPF (NEGATIVE) 05/21/19 14:51 Urine Bacteria Trace /HPF (NEGATIVE) 05/21/19 14:51 Ur Culture Indicated? No/not indicated 05/21/19 14:51 Cytology Specimen To follow 05/22/19 14:25 Tissue Pathology To follow 05/22/19 14:19 - Plan (1) Pelvic abscess Status: Acute Plan: SURGERY TODAY, INVANZ 1G IV DAILY, VANCOMYCIN 500MG IV DAILY, IV PEPCID, ZOFRAN 4MG IV Q8H PRN, DEMEROL 25MG IV Q6H PRN, AND HOME MEDICATIONS WERE RESUMED (2) Abdominal pain Status: Acute Qualifiers: Abdominal location: lower abdomen, unspecified Qualified Code(s): R10.30 - Lower abdominal pain, unspecified (3) Nausea & vomiting Status: Acute Qualifiers: Vomiting type: unspecified Vomiting Intractability: non-intractable Qualified Code(s): R11.2 - Nausea with vomiting, unspecified Plan: ZOFRAN 4MG IV Q8H PRN, CONTINUE TO MONITOR (4) Malnutrition Status: Acute Qualifiers: Malnutrition type: protein-calorie malnutrition Protein-calorie malnutrition severity: unspecified severity Qualified Code(s): E46 - Unspecified protein-calorie malnutrition Plan: TPN, CONTINUE TO MONITOR
[2019-05-24] MEDS: NS + KCL 20 MEQ/L 1,000 ML IV SCH ×3 (00:34→15:00)
[2019-05-24] MEDS: DEMEROL INJ IVP PRN ×2 (04:46→21:56)
[2019-05-24] MEDS: ZOFRAN INJ 4 MG VIAL IVP PRN (04:47)
[2019-05-24 07:06] LABS: ALANINE AMINOTRANSFERASE 16 Units/L (12-78); ALBUMIN 2.6 g/dL (3.4-5.0); ALKALINE PHOSPHATASE 88 Units/L (46-116); ASPARTATE AMINO TRANSFERASE 18 Units/L (15-37); BLOOD UREA NITROGEN 18 mg/dL (7-18); CALCIUM 8.6 mg/dL (8.5-10.1); CHLORIDE 101 mmol/L (98-107); COR CA(FOR HYPOALB) 9.7 mg/dL (8.5-10.1); COR NA(FOR HYPERGLY) 136 mmol/L (136-145); CREATININE 0.44 mg/dL (0.55-1.02); SODIUM 135 mmol/L (136-145); TOTAL PROTEIN 6.6 g/dL (6.4-8.2); eGFR NON BLACK RACES > 60 (>60)
[2019-05-24] MEDS ORDERED: DRUG FILTER EXTENSION SET ONE (07:37)
[2019-05-24] MEDS: CLINIMIX 5 %/20 % 1,000 ML with MVI INJ (ADULT) 10 ML, TRACE ELEMENTS INJ 10 ML, TPN EL... IV SCH ×8 (08:06→21:00)
[2019-05-24 09:08] LABS: CREATININE 0.36 mg/dL (0.55-1.02); VANCOMYCIN,TROUGH 11.2 ug/mL (15-20)
[2019-05-24] MEDS: PROTONIX INJ 40 MG VIAL IVP SCH (09:16)
[2019-05-24] MEDS: INVANZ INJ 1 GM VIAL 1 GM in NS 100 ML IV + SPIKE MINIBAG* 100 ML IV SCH (09:17)
[2019-05-24] MEDS: LOVENOX INJ 40 MG SYR SC SCH (09:17)
[2019-05-24] MEDS: NADOLOL 10 MG PO SCH (09:19)
[2019-05-24] MEDS: FOLIC ACID TAB 1 MG PO SCH (09:19)
[2019-05-24] MEDS: FLAGYL TAB 250 MG PO SCH ×2 (09:22→21:00)
[2019-05-24] MEDS: CYMBALTA PO SCH (09:22)
[2019-05-24] MEDS: VANCOMYCIN HCL 750 MG in D5W 250 ML IV 250 ML IV SCH ×3 (10:00→22:02)
--- NOTE | 2019-05-24 10:07 | PCM.PROG ---
Progress Note - Progress Note for Day of Date of Exam: 05/24/19 - Subjective Subjective: WAS ADMITTED FOR TREATMENT OF MALNUTRITION, PELVIC ABSCESS, ABDOMINAL PAIN, AND N/V. TODAY, SHE IS ALERT AND ORIENTED, LYING IN BED ON MORNING ROUNDS. SHE CONTINUES WITH COMPLAINTS OF ABDOMINAL PAIN AND NAUSEA. ON EXAMINATION, HEART IS REGULAR IN RATE AND RHYTHM. BILATERAL LUNGS ARE NOTED WITH DIMINISHED LUNG SOUNDS THROUGHOUT. ABDOMEN IS FLAT, SOFT, AND NOTED WITH DIFFUSE TENDERNESS. HYPOACTIVE BOWEL SOUNDS ARE NOTED IN ALL QUARANTS. HER VITALS THIS MORNING ARE: 98.6-76-16-98%-101/55. LABS WERE OBTAINED. ABNORMAL LAB VALUES INCLUDE THE FOLLOWING: WBC 10.1, SODIUM 135, CREATININE 0.44, GLUCOSE 158, ALBUMIN 2.6. PLANS FOR A COMPLETE DIVERTING TRANSVERSE COLOSTOMY TODAY. WE ARE IN AGREEMENT WITH PLAN. SHE IS CURRENTLY RECEIVING: INVANZ 1G IV DAILY, VANCOMYCIN 500MG IV DAILY, IV PEPCID, ZOFRAN 4MG IV Q8H PRN, DEMEROL 25MG IV Q6H PRN, AND HOME MEDICATIONS WERE RESUMED. WE WILL CONTINUE WITH CURRENT PLAN OF CARE TODAY. OTHERWISE, WE PLAN TO FOLLOW UP WITH AM LABS AND CONTINUE TO MONITOR. - Past Medical Family Social History Past Med/Fam/Surg Hx: No changes since H&P Allergies: Allergies lorazepam [From Ativan] Allergy (Verified 05/22/19 06:02) morphine Allergy (Verified 05/21/19 12:02) Penicillins Allergy (Verified 05/21/19 12:02) - Review of Systems ROS: No change since H&P - Vital Signs and I&O's Vital Signs: Temperature 98.6 F Pulse Rate [Left Brachial] 76 Pulse Rate 68 Respiratory Rate 20 Blood Pressure [Left Arm] 101/55 Blood Pressure [Right Arm] 124/58 Blood Pressure 100/54 O2 Sat by Pulse Oximetry 98 Intake and Output: Intake & Output 05/21/19 05/22/19 05/23/19 05/24/19 11:59 11:59 11:59 11:59 Intake Total 60 / 60 1832 / 1832 720 / 720 Output Total 300 / 300 150 / 150 Balance -240 / -240 1682 / 1682 720 / 720 - Physical Exam Oriented: Normal Eyes: Normal Ear: Normal Nose: Normal Throat: Normal Respiratory: Generalized, Diminished Cardiovascular: Normal : Normal Auscultation: Bowel Sounds: Normal Palpation: Normal Tenderness: Diffuse (mainly lower abdomen and epigastrium . BS+), Moderate. negative: Rebound, Guarding, Rigidity Skin: Normal Musculoskeletal: Normal Psychiatric: Normal Mood Description: Calm Affect: Normal Speech Pattern: Clear, Appropriate - Laboratory and Diagnostics Result Diagrams: 05/23/19 04:32 05/24/19 08:33 Labs: Laboratory WBC 10.1 X10^3/uL (3.6-10.0) H 05/23/19 04:32 RBC 4.04 X10^6/uL (3.5-5.4) 05/23/19 04:32 Hgb 12.5 g/dL (12.0-16.0) 05/23/19 04:32 Hct 36.8 % (36.0-47.0) 05/23/19 04:32 MCV 91.1 fL (80.0-100.0) 05/23/19 04:32 MCH 30.9 pg (27.0-34.0) 05/23/19 04:32 MCHC 34.0 g/dL (33.0-35.0) 05/23/19 04:32 RDW 18.2 % (11.6-16.5) H 05/23/19 04:32 Plt Count 379 X10^3/uL (150.0-450.0) 05/23/19 04:32 MPV 7.8 fL (7.4-11.0) 05/23/19 04:32 Neut % (Auto) 68.7 % (42.0-75.0) 05/23/19 04:32 Lymph % (Auto) 16.1 % (21.0-51.0) L 05/23/19 04:32 [place] % (Auto) 12.0 % (0.0-13.0) 05/23/19 04:32 Eos % (Auto) 2.3 % (0.9-2.9) 05/23/19 04:32 Baso % (Auto) 0.9 % (0.2-1.0) 05/23/19 04:32 Neut # (Auto) 6.9 x10^3/uL (2.2-4.8) H 05/23/19 04:32 Lymph # (Auto) 1.6 X10^3/uL (1.3-2.9) 05/23/19 04:32 [place] # (Auto) 1.2 x10^3/uL (0.3-0.8) H 05/23/19 04:32 Eos # (Auto) 0.2 x10^3/uL (0.0-0.2) 05/23/19 04:32 Baso # (Auto) 0.1 X10^3/uL (0.0-0.1) 05/23/19 04:32 Absolute Nucleated RBC 0.0 /100WBC 05/23/19 04:32 Sodium 135 mmol/L (136-145) L 05/24/19 05:22 Corrected Sodium 136 mmol/L (136-145) 05/24/19 05:22 Potassium 4.0 mmol/L (3.5-5.1) 05/24/19 05:22 Chloride 101 mmol/L (98-107) 05/24/19 05:22 Carbon Dioxide 26.0 mmol/L (21-32) 05/24/19 05:22 BUN 18 mg/dL (7-18) 05/24/19 05:22 Creatinine 0.36 mg/dL (0.55-1.02) L 05/24/19 08:33 Est GFR (MDRD) Af Amer > 60 (>60) 05/24/19 05:22 Est GFR (MDRD) Non-Af > 60 (>60) 05/24/19 05:22 Glucose 158 mg/dL (65-99) H 05/24/19 05:22 POC Glucose (mg/dL) 142 mg/dL (65-99) H 05/24/19 05:23 Calcium 8.6 mg/dL (8.5-10.1) 05/24/19 05:22 Corrected Calcium 9.7 mg/dL (8.5-10.1) 05/24/19 05:22 Phosphorus 1.8 mg/dL (2.6-4.7) L 05/22/19 17:58 Magnesium 1.8 mg/dL (1.7-2.9) 05/22/19 17:58 Total Bilirubin 0.20 mg/dL (0.2-1.0) 05/24/19 05:22 AST 18 Units/L (15-37) 05/24/19 05:22 ALT 16 Units/L (12-78) 05/24/19 05:22 Alkaline Phosphatase 88 Units/L (46-116) 05/24/19 05:22 Total Protein 6.6 g/dL (6.4-8.2) 05/24/19 05:22 Albumin 2.6 g/dL (3.4-5.0) L 05/24/19 05:22 Globulin 4.0 g/dL (2.5-4.5) 05/24/19 05:22 Albumin/Globulin Ratio 0.7 Ratio (1.1-2.1) L 05/24/19 05:22 Prealbumin 26.7 mg/dL (18-35.7) 05/23/19 04:32 Triglycerides 82 mg/dL (0-150) 05/22/19 17:58 Amylase 74 Units/L (25-115) 05/21/19 14:42 Lipase 110 Units/L (73-393) 05/21/19 14:42 Specimen Type Clean catch urine 05/21/19 14:51 Urine Color Yellow (YELLOW) 05/21/19 14:51 Urine Appearance Slightly hazy (CLEAR) 05/21/19 14:51 Urine pH 7.0 (5.0 - 8.0) 05/21/19 14:51 Ur Specific [place] 1.010 (1.000-1.030) 05/21/19 14:51 Urine Protein 1+ (NEGATIVE) 05/21/19 14:51 Urine Glucose (UA) Negative (NEGATIVE) 05/21/19 14:51 Urine Ketones 1+ (NEGATIVE) 05/21/19 14:51 Urine Occult Blood 2+ (NEGATIVE) 05/21/19 14:51 Urine Nitrite Negative (NEGATIVE) 05/21/19 14:51 Urine Bilirubin Negative (NEGATIVE) 05/21/19 14:51 Urine Urobilinogen Normal (NORMAL) 05/21/19 14:51 Ur Leukocyte Esterase 1+ (NEGATIVE) 05/21/19 14:51 Urine RBC 5-10 /HPF (0-3) A 05/21/19 14:51 Urine WBC 3-5 /HPF (0-5) 05/21/19 14:51 Ur Squamous Epith Cells Few /HPF (NEGATIVE) 05/21/19 14:51 Urine Bacteria Trace /HPF (NEGATIVE) 05/21/19 14:51 Ur Culture Indicated? No/not indicated 05/21/19 14:51 Vancomycin Trough 11.2 ug/mL (15-20) L 05/24/19 08:33 Cytology Specimen To follow 05/22/19 14:25 Tissue Pathology To follow 05/22/19 14:19 - Plan (1) Pelvic abscess Status: Acute Plan: SURGERY TODAY, INVANZ 1G IV DAILY, VANCOMYCIN 500MG IV DAILY, IV PEPCID, ZOFRAN 4MG IV Q8H PRN, DEMEROL 25MG IV Q6H PRN, AND HOME MEDICATIONS WERE RESUMED (2) Abdominal pain Status: Acute Qualifiers: Abdominal location: lower abdomen, unspecified Qualified Code(s): R10.30 - Lower abdominal pain, unspecified (3) Nausea & vomiting Status: Acute Qualifiers: Vomiting type: unspecified Vomiting Intractability: non-intractable Qualified Code(s): R11.2 - Nausea with vomiting, unspecified Plan: ZOFRAN 4MG IV Q8H PRN, CONTINUE TO MONITOR (4) Malnutrition Status: Acute Qualifiers: Malnutrition type: protein-calorie malnutrition Protein-calorie malnutrition severity: unspecified severity Qualified Code(s): E46 - Unspecified protein-calorie malnutrition Plan: TPN, CONTINUE TO MONITOR
[2019-05-24] MEDS ORDERED: FENTANYL INJ 250 mcg ONE (10:35)
[2019-05-24] MEDS ORDERED: LR 1000 ML IV 1,000 ML IV ONE ×2 (10:50→13:45)
[2019-05-24] MEDS ORDERED: BACITRACIN VIAL ONE (11:23)
[2019-05-24 11:45] LABS: BILIRUBIN,URINE NEGATIVE (NEGATIVE); BLOOD/HEMOGLOBIN,URINE 1+ (NEGATIVE); GLUCOSE, URINE 1+ (NEGATIVE); KETONES,URINE NEGATIVE (NEGATIVE); LEUKOCYTE ESTERASE ,URINE NEGATIVE (NEGATIVE); NITRITES,URINE NEGATIVE (NEGATIVE); PROTEIN,URINE 1+ (NEGATIVE); UROBILINOGEN,URINE NORMAL (NORMAL)
[2019-05-24 11:47] LABS: APPEARANCE,URINE HAZY (CLEAR); COLOR,URINE YELLOW (YELLOW)
[2019-05-24 11:53] LABS: AMORPHOUS SEDIMENT,UR 1+ /HPF (NEGATIVE); BACTERIA,URINE TRACE /HPF (NEGATIVE); RBC,URINE 0-2 /HPF (0-3); SQUAMOUS EPITHELIAL CELL,UR NEGATIVE /HPF (NEGATIVE)
[2019-05-24] MEDS ORDERED: DILAUDID INJ ONE (13:54)
[2019-05-24] MEDS ORDERED: REGLAN INJ 10 MG VIAL IVP PRN (14:40)
[2019-05-24] MEDS ORDERED: BENADRYL INJ 50 MG VIAL IVP PRN (14:40)
[2019-05-24] MEDS ORDERED: PHENERGAN INJ 25 MG IM PRN (14:40)
[2019-05-24] MEDS ORDERED: ZOFRAN INJ 4 MG VIAL IVP PRN (14:40)
[2019-05-24] MEDS: DILAUDID INJ IVP PRN ×3 (14:50→17:32)
[2019-05-24] MEDS ORDERED: NORCURON INJ 10 MG VIAL ONE (15:59)
[2019-05-24] MEDS ORDERED: VERSED ONE (15:59)
[2019-05-24] MEDS ORDERED: EPHEDRINE SULFATE INJ ONE (15:59)
[2019-05-24] MEDS ORDERED: ZOFRAN INJ 4 MG VIAL ONE (15:59)
[2019-05-24] MEDS ORDERED: ROBINUL ONE (15:59)
[2019-05-24] MEDS ORDERED: NEOSTIGMINE INJ ONE (15:59)
[2019-05-24] MEDS ORDERED: SUPRANE ONE (15:59)
[2019-05-24] MEDS ORDERED: DIPRIVAN VIAL ONE (15:59)
--- NOTE | 2019-05-24 18:02 | OR.IMMED ---
Immediate Post-Op Note - Immediate Post-Op Note Pre-Op Diagnosis: recurrent diverticulitis with pelvic abscess . PUD . Post-Op Diagnosis: distended stomach 2nd PUD and gastric outlet obstruction . extensive pelvic adhesion , inflamation , diverticulitis and scaring , deep abscess . Procedure: exploratory lap . lysis of extensive adhesions . Gastro-jejunostomy. complete diverting colostomy . Surgeon/[employer] Driver: Allison Estimated Blood Loss: 150 cc Drains: Isai Phan (same TPN , IV ATB , and PO care .) Complications: non Condition: Stable
[2019-05-24] MEDS ORDERED: D5 1/2 NS 1000 ML 1,000 ML IV ONE (18:23)
[2019-05-24] MEDS: D5 1/2 NS 1000 ML 1,000 ML IV SCH (18:26)
[2019-05-25] MEDS: DILAUDID INJ IVP PRN ×5 (00:30→22:30)
[2019-05-25] MEDS: D5 1/2 NS 1000 ML 1,000 ML IV SCH ×3 (01:48→19:22)
[2019-05-25] MEDS: DEMEROL INJ IVP PRN ×4 (03:49→20:46)
[2019-05-25 06:19] LABS: ALANINE AMINOTRANSFERASE 19 Units/L (12-78); ALBUMIN 1.9 g/dL (3.4-5.0); ALKALINE PHOSPHATASE 90 Units/L (46-116); ASPARTATE AMINO TRANSFERASE 16 Units/L (15-37); BLOOD UREA NITROGEN 20 mg/dL (7-18); CALCIUM 7.8 mg/dL (8.5-10.1); CARBON DIOXIDE 26.3 mmol/L (21-32); CHLORIDE 101 mmol/L (98-107); COR CA(FOR HYPOALB) 9.5 mg/dL (8.5-10.1); COR NA(FOR HYPERGLY) 135 mmol/L (136-145); CREATININE 0.36 mg/dL (0.55-1.02); SODIUM 134 mmol/L (136-145); TOTAL PROTEIN 5.2 g/dL (6.4-8.2); eGFR NON BLACK RACES > 60 (>60)
[2019-05-25 08:50] LABS: BASOPHILS % (AUTO) 0.2 % (0.2-1.0); EOSINOPHILS # (AUTO) 0.2 x10^3/uL (0.0-0.2); EOSINOPHILS % (AUTO) 2.2 % (0.9-2.9); HEMATOCRIT 34.3 % (36.0-47.0); HEMOGLOBIN 11.6 g/dL (12.0-16.0); LYMPHOCYTES # (AUTO) 1.3 X10^3/uL (1.3-2.9); LYMPHOCYTES % (AUTO) 14.2 % (21.0-51.0); MEAN CORPUSCULAR HEMOGLOBIN 31.2 pg (27.0-34.0); MEAN CORPUSCULAR HGB CONC 33.7 g/dL (33.0-35.0); MEAN CORPUSCULAR VOLUME 92.5 fL (80.0-100.0); MEAN PLATELET VOLUME 7.7 fL (7.4-11.0); MONOCYTES # (AUTO) 1.1 x10^3/uL (0.3-0.8); MONOCYTES % (AUTO) 12.1 % (0.0-13.0); NEUTROPHILS # (AUTO) 6.3 x10^3/uL (2.2-4.8); NEUTROPHILS % (AUTO) 71.3 % (42.0-75.0); PLATELET COUNT 315 X10^3/uL (150.0-450.0); RED CELL DISTRIBUTION WIDTH 17.8 % (11.6-16.5); WHITE BLOOD COUNT 8.9 X10^3/uL (3.6-10.0)
[2019-05-25] MEDS: CLINIMIX 5 %/20 % 1,000 ML with MVI INJ (ADULT) 10 ML, TRACE ELEMENTS INJ 10 ML, TPN EL... IV SCH ×9 (09:10→21:02)
[2019-05-25] MEDS: VANCOMYCIN HCL 750 MG in D5W 250 ML IV 250 ML IV SCH ×2 (09:10→21:02)
[2019-05-25] MEDS: INVANZ INJ 1 GM VIAL 1 GM in NS 100 ML IV + SPIKE MINIBAG* 100 ML IV SCH (09:11)
[2019-05-25] MEDS: LOVENOX INJ 40 MG SYR SC SCH (09:11)
[2019-05-25] MEDS: PROTONIX INJ 40 MG VIAL IVP SCH (09:11)
--- NOTE | 2019-05-25 10:35 | PCM.PROG ---
Progress Note - Progress Note for Day of Date of Exam: 05/25/19 - Subjective Subjective: WAS ADMITTED FOR TREATMENT OF MALNUTRITION, PELVIC ABSCESS, ABDOMINAL PAIN, AND N/V. SHE IS DAY 1 STATUS POST EXPLORATORY LAP, LYSIS OF EXTENSIVE ADHESION,S GASTRO JEJUNOSTOMY, AND COMPLETE DIVERTING COLOSTOMY. TODAY, SHE IS ALERT AND ORIENTED, LYING IN BED ON MORNING ROUNDS. SHE CONTINUES WITH COMPLAINTS OF ABDOMINAL PAIN. ON EXAMINATION, HEART IS REGULAR IN RATE AND RHYTHM. BILATERAL LUNGS ARE NOTED WITH DIMINISHED LUNG SOUNDS THROUGHOUT. ABDOMEN IS FLAT, SOFT, AND NOTED WITH DIFFUSE TENDERNESS. HYPOACTIVE BOWEL SOUNDS ARE NOTED IN ALL QUARANTS. THERE IS A COLOSTOMY NOTED. NO STOOL PRESENT IN BAG AT THIS TIME. HER VITALS THIS MORNING ARE: 98.8-90-14-99%-101/58. LABS WERE OBTAINED. ABNORMAL LAB VALUES INCLUDE THE FOLLOWING: HGB 11.6, HCT 34.3, SODIUM 134, POTASSIUM 3.2, BUN 20, CREATININE 0.36, GLUCOSE 154, CALCIUM 7.8, TOTAL PROTEIN 5.2, ALBUMIN 1.9. SHE IS CURRENTLY RECEIVING: TPN, INVANZ 1G IV DAILY, VANCOMYCIN 500MG IV DAILY, IV PEPCID, IV PROTONIX, ZOFRAN 4MG IV Q8H PRN, DEMEROL 25MG IV Q6H PRN, FLAGYL IV, AND HOME MEDICATIONS WERE RESUMED. WE WILL CONTINUE WITH CURRENT PLAN OF CARE TODAY AND HAVE PHYSICAL THERAPY WORK WITH PATIENT. OTHERWISE, WE PLAN TO FOLLOW UP WITH AM LABS AND CONTINUE TO MONITOR. - Past Medical Family Social History Past Med/Fam/Surg Hx: No changes since H&P Allergies: Allergies lorazepam [From Ativan] Allergy (Verified 05/22/19 06:02) morphine Allergy (Verified 05/21/19 12:02) Penicillins Allergy (Verified 05/21/19 12:02) - Review of Systems ROS: No change since H&P - Vital Signs and I&O's Vital Signs: Temperature 98.8 F Pulse Rate [Apical] 85 Pulse Rate [Left Brachial] 77 Pulse Rate 80 Respiratory Rate 24 Blood Pressure [Left Arm] 106/58 Blood Pressure [Right Arm] 124/58 Blood Pressure 115/55 O2 Sat by Pulse Oximetry 99 Intake and Output: Intake & Output 05/22/19 05/23/19 05/24/19 05/25/19 11:59 11:59 11:59 11:59 Intake Total 60 / 60 1832 / 1832 1020 / 1020 6090 / 6090 Output Total 300 / 300 150 / 150 300 / 300 1727 / 1727 Balance -240 / -240 1682 / 1682 720 / 720 4363 / 4363 - Physical Exam Oriented: Normal Eyes: Normal Ear: Normal Nose: Normal Throat: Normal Respiratory: Generalized, Diminished Cardiovascular: Normal : Normal Auscultation: Bowel Sounds: Normal Palpation: Normal Tenderness: Diffuse (mainly lower abdomen and epigastrium . BS+), Mild. negative: Rebound, Guarding, Rigidity Skin: Normal Musculoskeletal: Normal Psychiatric: Normal Mood Description: Calm Affect: Normal Speech Pattern: Clear, Appropriate - Laboratory and Diagnostics Result Diagrams: 05/25/19 05:19 05/25/19 05:19 Labs: Laboratory WBC 8.9 X10^3/uL (3.6-10.0) 05/25/19 05:19 RBC 3.70 X10^6/uL (3.5-5.4) 05/25/19 05:19 Hgb 11.6 g/dL (12.0-16.0) L 05/25/19 05:19 Hct 34.3 % (36.0-47.0) L 05/25/19 05:19 MCV 92.5 fL (80.0-100.0) 05/25/19 05:19 MCH 31.2 pg (27.0-34.0) 05/25/19 05:19 MCHC 33.7 g/dL (33.0-35.0) 05/25/19 05:19 RDW 17.8 % (11.6-16.5) H 05/25/19 05:19 Plt Count 315 X10^3/uL (150.0-450.0) 05/25/19 05:19 MPV 7.7 fL (7.4-11.0) 05/25/19 05:19 Neut % (Auto) 71.3 % (42.0-75.0) 05/25/19 05:19 Lymph % (Auto) 14.2 % (21.0-51.0) L 05/25/19 05:19 [place] % (Auto) 12.1 % (0.0-13.0) 05/25/19 05:19 Eos % (Auto) 2.2 % (0.9-2.9) 05/25/19 05:19 Baso % (Auto) 0.2 % (0.2-1.0) 05/25/19 05:19 Neut # (Auto) 6.3 x10^3/uL (2.2-4.8) H 05/25/19 05:19 Lymph # (Auto) 1.3 X10^3/uL (1.3-2.9) 05/25/19 05:19 [place] # (Auto) 1.1 x10^3/uL (0.3-0.8) H 05/25/19 05:19 Eos # (Auto) 0.2 x10^3/uL (0.0-0.2) 05/25/19 05:19 Baso # (Auto) 0.0 X10^3/uL (0.0-0.1) 05/25/19 05:19 Absolute Nucleated RBC 0.1 /100WBC 05/25/19 05:19 Sodium 134 mmol/L (136-145) L 05/25/19 05:19 Corrected Sodium 135 mmol/L (136-145) L 05/25/19 05:19 Potassium 3.2 mmol/L (3.5-5.1) L 05/25/19 05:19 Chloride 101 mmol/L (98-107) 05/25/19 05:19 Carbon Dioxide 26.3 mmol/L (21-32) 05/25/19 05:19 BUN 20 mg/dL (7-18) H 05/25/19 05:19 Creatinine 0.36 mg/dL (0.55-1.02) L 05/25/19 05:19 Est GFR (MDRD) Af Amer > 60 (>60) 05/25/19 05:19 Est GFR (MDRD) Non-Af > 60 (>60) 05/25/19 05:19 Glucose 154 mg/dL (65-99) H 05/25/19 05:19 POC Glucose (mg/dL) 144 mg/dL (65-99) H 05/25/19 05:19 Calcium 7.8 mg/dL (8.5-10.1) L 05/25/19 05:19 Corrected Calcium 9.5 mg/dL (8.5-10.1) 05/25/19 05:19 Phosphorus 1.8 mg/dL (2.6-4.7) L 05/22/19 17:58 Magnesium 1.8 mg/dL (1.7-2.9) 05/22/19 17:58 Total Bilirubin 0.20 mg/dL (0.2-1.0) 05/25/19 05:19 AST 16 Units/L (15-37) 05/25/19 05:19 ALT 19 Units/L (12-78) 05/25/19 05:19 Alkaline Phosphatase 90 Units/L (46-116) 05/25/19 05:19 Total Protein 5.2 g/dL (6.4-8.2) L 05/25/19 05:19 Albumin 1.9 g/dL (3.4-5.0) L 05/25/19 05:19 Globulin 3.3 g/dL (2.5-4.5) 05/25/19 05:19 Albumin/Globulin Ratio 0.6 Ratio (1.1-2.1) L 05/25/19 05:19 Prealbumin 26.7 mg/dL (18-35.7) 05/23/19 04:32 Triglycerides 82 mg/dL (0-150) 05/22/19 17:58 Amylase 74 Units/L (25-115) 05/21/19 14:42 Lipase 110 Units/L (73-393) 05/21/19 14:42 Specimen Type Catherized urine 05/24/19 11:30 Urine Color Yellow (YELLOW) 05/24/19 11:30 Urine Appearance Hazy (CLEAR) 05/24/19 11:30 Urine pH 6.0 (5.0 - 8.0) 05/24/19 11:30 Ur Specific [place] 1.020 (1.000-1.030) 05/24/19 11:30 Urine Protein 1+ (NEGATIVE) 05/24/19 11:30 Urine Glucose (UA) 1+ (NEGATIVE) 05/24/19 11:30 Urine Ketones Negative (NEGATIVE) 05/24/19 11:30 Urine Occult Blood 1+ (NEGATIVE) 05/24/19 11:30 Urine Nitrite Negative (NEGATIVE) 05/24/19 11:30 Urine Bilirubin Negative (NEGATIVE) 05/24/19 11:30 Urine Urobilinogen Normal (NORMAL) 05/24/19 11:30 Ur Leukocyte Esterase Negative (NEGATIVE) 05/24/19 11:30 Urine RBC 0-2 /HPF (0-3) 05/24/19 11:30 Urine WBC None seen /HPF (0-5) 05/24/19 11:30 Ur Squamous Epith Cells Negative /HPF (NEGATIVE) 05/24/19 11:30 Amorphous Sediment 1+ /HPF (NEGATIVE) 05/24/19 11:30 Urine Bacteria Trace /HPF (NEGATIVE) 05/24/19 11:30 Ur Culture Indicated? No/not indicated 05/24/19 11:30 Vancomycin Trough 11.2 ug/mL (15-20) L 05/24/19 08:33 Cytology Specimen To follow 05/22/19 14:25 Tissue Pathology To follow 05/22/19 14:19 - Plan (1) Pelvic abscess Status: Acute Plan: SURGERY TODAY, INVANZ 1G IV DAILY, VANCOMYCIN 500MG IV DAILY, IV PEPCID, ZOFRAN 4MG IV Q8H PRN, DEMEROL 25MG IV Q6H PRN, AND HOME MEDICATIONS WERE RESUMED (2) Abdominal pain Status: Acute Qualifiers: Abdominal location: lower abdomen, unspecified Qualified Code(s): R10.30 - Lower abdominal pain, unspecified (3) Status post colostomy Status: Acute Plan: COLOSTOMY CARE AND TEACHING, CONTINUE TO MONITOR (4) Nausea & vomiting Status: Acute Qualifiers: Vomiting type: unspecified Vomiting Intractability: non-intractable Qualified Code(s): R11.2 - Nausea with vomiting, unspecified Plan: ZOFRAN 4MG IV Q8H PRN, CONTINUE TO MONITOR (5) Malnutrition Status: Acute Qualifiers: Malnutrition type: protein-calorie malnutrition Protein-calorie malnutrition severity: unspecified severity Qualified Code(s): E46 - Unspecified protein-calorie malnutrition Plan: TPN, CONTINUE TO MONITOR
--- NOTE | 2019-05-25 11:15 | DR.PROGNOT ---
Hospital Progress Notes - Progress Note for Day of: Progress Note Date: 05/25/19 - Chief Complaint Chief Complaint: PO day 1. alert and stable VS . WBC 8.9. K 3.2. BUN/CREA 20/o.36. tem 98.8 - Past Medical Family Social History Past Med/Fam/Surg Hx: No changes since H&P Allergies: Allergies lorazepam [From Ativan] Allergy (Verified 05/22/19 06:02) morphine Allergy (Verified 05/21/19 12:02) Penicillins Allergy (Verified 05/21/19 12:02) - Review Of Systems ROS: No change since H&P - Vital Signs Vital Signs: Temperature 98.8 F Pulse Rate [Apical] 85 Pulse Rate [Left Brachial] 77 Pulse Rate 80 Respiratory Rate 24 Blood Pressure [Left Arm] 106/58 Blood Pressure [Right Arm] 124/58 Blood Pressure 115/55 O2 Sat by Pulse Oximetry 99 - Physical Exam Oriented: Normal Eyes: Normal Ear: Normal Nose: Normal Throat: Normal Respiratory: Generalized, Diminished Cardiovascular: Normal : Normal GI:Auscultation: Normal GI:Palpation: Normal GI: Tenderness: Diffuse (soft with diffuse tenderness . BS hypoactive .), Mild. negative: Rebound, Guarding, Rigidity Skin: Normal Musculoskeletal: Normal Psychiatric: Normal Mood Description: Calm Affect: Normal Speech Pattern: Clear, Appropriate - Laboratory and Diagnostics Result Diagrams: 05/25/19 05:19 05/25/19 05:19 Labs: Laboratory WBC 8.9 X10^3/uL (3.6-10.0) 05/25/19 05:19 RBC 3.70 X10^6/uL (3.5-5.4) 05/25/19 05:19 Hgb 11.6 g/dL (12.0-16.0) L 05/25/19 05:19 Hct 34.3 % (36.0-47.0) L 05/25/19 05:19 MCV 92.5 fL (80.0-100.0) 05/25/19 05:19 MCH 31.2 pg (27.0-34.0) 05/25/19 05:19 MCHC 33.7 g/dL (33.0-35.0) 05/25/19 05:19 RDW 17.8 % (11.6-16.5) H 05/25/19 05:19 Plt Count 315 X10^3/uL (150.0-450.0) 05/25/19 05:19 MPV 7.7 fL (7.4-11.0) 05/25/19 05:19 Neut % (Auto) 71.3 % (42.0-75.0) 05/25/19 05:19 Lymph % (Auto) 14.2 % (21.0-51.0) L 05/25/19 05:19 [place] % (Auto) 12.1 % (0.0-13.0) 05/25/19 05:19 Eos % (Auto) 2.2 % (0.9-2.9) 05/25/19 05:19 Baso % (Auto) 0.2 % (0.2-1.0) 05/25/19 05:19 Neut # (Auto) 6.3 x10^3/uL (2.2-4.8) H 05/25/19 05:19 Lymph # (Auto) 1.3 X10^3/uL (1.3-2.9) 05/25/19 05:19 [place] # (Auto) 1.1 x10^3/uL (0.3-0.8) H 05/25/19 05:19 Eos # (Auto) 0.2 x10^3/uL (0.0-0.2) 05/25/19 05:19 Baso # (Auto) 0.0 X10^3/uL (0.0-0.1) 05/25/19 05:19 Absolute Nucleated RBC 0.1 /100WBC 05/25/19 05:19 Sodium 134 mmol/L (136-145) L 05/25/19 05:19 Corrected Sodium 135 mmol/L (136-145) L 05/25/19 05:19 Potassium 3.2 mmol/L (3.5-5.1) L 05/25/19 05:19 Chloride 101 mmol/L (98-107) 05/25/19 05:19 Carbon Dioxide 26.3 mmol/L (21-32) 05/25/19 05:19 BUN 20 mg/dL (7-18) H 05/25/19 05:19 Creatinine 0.36 mg/dL (0.55-1.02) L 05/25/19 05:19 Est GFR (MDRD) Af Amer > 60 (>60) 05/25/19 05:19 Est GFR (MDRD) Non-Af > 60 (>60) 05/25/19 05:19 Glucose 154 mg/dL (65-99) H 05/25/19 05:19 POC Glucose (mg/dL) 144 mg/dL (65-99) H 05/25/19 05:19 Calcium 7.8 mg/dL (8.5-10.1) L 05/25/19 05:19 Corrected Calcium 9.5 mg/dL (8.5-10.1) 05/25/19 05:19 Phosphorus 1.8 mg/dL (2.6-4.7) L 05/22/19 17:58 Magnesium 1.8 mg/dL (1.7-2.9) 05/22/19 17:58 Total Bilirubin 0.20 mg/dL (0.2-1.0) 05/25/19 05:19 AST 16 Units/L (15-37) 05/25/19 05:19 ALT 19 Units/L (12-78) 05/25/19 05:19 Alkaline Phosphatase 90 Units/L (46-116) 05/25/19 05:19 Total Protein 5.2 g/dL (6.4-8.2) L 05/25/19 05:19 Albumin 1.9 g/dL (3.4-5.0) L 05/25/19 05:19 Globulin 3.3 g/dL (2.5-4.5) 05/25/19 05:19 Albumin/Globulin Ratio 0.6 Ratio (1.1-2.1) L 05/25/19 05:19 Prealbumin 26.7 mg/dL (18-35.7) 05/23/19 04:32 Triglycerides 82 mg/dL (0-150) 05/22/19 17:58 Amylase 74 Units/L (25-115) 05/21/19 14:42 Lipase 110 Units/L (73-393) 05/21/19 14:42 Specimen Type Catherized urine 05/24/19 11:30 Urine Color Yellow (YELLOW) 05/24/19 11:30 Urine Appearance Hazy (CLEAR) 05/24/19 11:30 Urine pH 6.0 (5.0 - 8.0) 05/24/19 11:30 Ur Specific [place] 1.020 (1.000-1.030) 05/24/19 11:30 Urine Protein 1+ (NEGATIVE) 05/24/19 11:30 Urine Glucose (UA) 1+ (NEGATIVE) 05/24/19 11:30 Urine Ketones Negative (NEGATIVE) 05/24/19 11:30 Urine Occult Blood 1+ (NEGATIVE) 05/24/19 11:30 Urine Nitrite Negative (NEGATIVE) 05/24/19 11:30 Urine Bilirubin Negative (NEGATIVE) 05/24/19 11:30 Urine Urobilinogen Normal (NORMAL) 05/24/19 11:30 Ur Leukocyte Esterase Negative (NEGATIVE) 05/24/19 11:30 Urine RBC 0-2 /HPF (0-3) 05/24/19 11:30 Urine WBC None seen /HPF (0-5) 05/24/19 11:30 Ur Squamous Epith Cells Negative /HPF (NEGATIVE) 05/24/19 11:30 Amorphous Sediment 1+ /HPF (NEGATIVE) 05/24/19 11:30 Urine Bacteria Trace /HPF (NEGATIVE) 05/24/19 11:30 Ur Culture Indicated? No/not indicated 05/24/19 11:30 Vancomycin Trough 11.2 ug/mL (15-20) L 05/24/19 08:33 Cytology Specimen To follow 05/22/19 14:25 Tissue Pathology To follow 05/22/19 14:19 - Assessment and Plan 1: PO laparotomy , lysis of adhesions . Gastro-Jejunostomy. diverting colostomy . same TPN ,OOB and PO care . - Problem Patient Problems: Patient Problems Pelvic abscess (Acute) Malnutrition (Acute) E46 Status post colostomy (Acute) Z93.3
[2019-05-25] MEDS: CYMBALTA PO SCH (11:33)
[2019-05-25] MEDS: FOLIC ACID TAB 1 MG PO SCH (11:34)
[2019-05-25] MEDS: NADOLOL 10 MG PO SCH (11:34)
[2019-05-25] MEDS: ZOFRAN INJ 4 MG VIAL IVP PRN ×2 (11:37→22:15)
[2019-05-25] MEDS: FLAGYL IV PREMIX 500 MG BAG 500 MG/100 ML BAG IV SCH ×2 (11:47→21:02)
[2019-05-25] MEDS ORDERED: DRUG FILTER EXTENSION SET ONE (13:59)
[2019-05-25] MEDS: K-RIDER 10 MEQ/NS 100 ML 10 MEQ/100 ML BAG IV PRN (18:52)
[2019-05-26] MEDS: K-RIDER 10 MEQ/NS 100 ML 10 MEQ/100 ML BAG IV PRN ×3 (00:11→03:28)
[2019-05-26] MEDS: D5 1/2 NS 1000 ML 1,000 ML IV SCH ×4 (02:17→19:39)
[2019-05-26] MEDS: DEMEROL INJ IVP PRN ×3 (04:30→20:42)
[2019-05-26 06:58] LABS: ALANINE AMINOTRANSFERASE 14 Units/L (12-78); ALBUMIN 1.7 g/dL (3.4-5.0); ALKALINE PHOSPHATASE 107 Units/L (46-116); ASPARTATE AMINO TRANSFERASE 14 Units/L (15-37); BLOOD UREA NITROGEN 12 mg/dL (7-18); CALCIUM 7.5 mg/dL (8.5-10.1); CARBON DIOXIDE 28.8 mmol/L (21-32); CHLORIDE 101 mmol/L (98-107); COR CA(FOR HYPOALB) 9.3 mg/dL (8.5-10.1); COR NA(FOR HYPERGLY) 134 mmol/L (136-145); CREATININE 0.32 mg/dL (0.55-1.02); MAGNESIUM 1.5 mg/dL (1.7-2.9); PHOSPHORUS < 0.5 mg/dL (2.6-4.7); SODIUM 134 mmol/L (136-145); TOTAL PROTEIN 5.1 g/dL (6.4-8.2); TRIGLYCERIDES 181 mg/dL (0-150); eGFR NON BLACK RACES > 60 (>60)
[2019-05-26 07:00] LABS: BASOPHILS % (AUTO) 0.3 % (0.2-1.0); EOSINOPHILS # (AUTO) 0.2 x10^3/uL (0.0-0.2); EOSINOPHILS % (AUTO) 2.7 % (0.9-2.9); HEMATOCRIT 27.3 % (36.0-47.0); HEMOGLOBIN 9.5 g/dL (12.0-16.0); LYMPHOCYTES # (AUTO) 1.2 X10^3/uL (1.3-2.9); LYMPHOCYTES % (AUTO) 13.8 % (21.0-51.0); MEAN CORPUSCULAR HEMOGLOBIN 31.7 pg (27.0-34.0); MEAN CORPUSCULAR HGB CONC 34.7 g/dL (33.0-35.0); MEAN CORPUSCULAR VOLUME 91.5 fL (80.0-100.0); MONOCYTES # (AUTO) 0.9 x10^3/uL (0.3-0.8); NEUTROPHILS % (AUTO) 72.2 % (42.0-75.0); PLATELET COUNT 241 X10^3/uL (150.0-450.0); RED BLOOD COUNT 2.98 X10^6/uL (3.5-5.4); RED CELL DISTRIBUTION WIDTH 17.9 % (11.6-16.5); WHITE BLOOD COUNT 8.3 X10^3/uL (3.6-10.0)
[2019-05-26 07:10] LABS: PREALBUMIN 14.7 mg/dL (18-35.7)
[2019-05-26] MEDS: DILAUDID INJ IVP PRN ×2 (08:01→14:48)
[2019-05-26] MEDS: MAGNESIUM SULFATE 1 GRAM/100 mL PREMIX 1 GM/100 ML BAG IV PRN ×3 (08:02→14:49)
[2019-05-26 08:46] LABS: CREATININE 0.29 mg/dL (0.55-1.02); VANCOMYCIN,TROUGH 10.5 ug/mL (15-20)
[2019-05-26] MEDS: PROTONIX INJ 40 MG VIAL IVP SCH (09:30)
[2019-05-26] MEDS: INVANZ INJ 1 GM VIAL 1 GM in NS 100 ML IV + SPIKE MINIBAG* 100 ML IV SCH (09:32)
[2019-05-26] MEDS: LOVENOX INJ 40 MG SYR SC SCH (09:32)
[2019-05-26] MEDS: VANCOMYCIN HCL 750 MG in D5W 250 ML IV 250 ML IV SCH ×2 (10:33→21:41)
[2019-05-26] MEDS: CLINIMIX 5 %/20 % 1,000 ML with MVI INJ (ADULT) 10 ML, TRACE ELEMENTS INJ 10 ML, TPN EL... IV SCH ×10 (10:37→23:56)
[2019-05-26] MEDS: FLAGYL IV PREMIX 500 MG BAG 500 MG/100 ML BAG IV SCH ×2 (10:37→20:43)
--- NOTE | 2019-05-26 15:19 | DR.PROGNOT ---
Hospital Progress Notes - Progress Note for Day of: Progress Note Date: 05/26/19 - Chief Complaint Chief Complaint: PO day 2. c/o incisional pain . good urine out put. NGT 150 cc. BUN/CREA 12/o.32. tem 99.0 - Past Medical Family Social History Past Med/Fam/Surg Hx: No changes since H&P Allergies: Allergies lorazepam [From Ativan] Allergy (Verified 05/22/19 06:02) morphine Allergy (Verified 05/21/19 12:02) Penicillins Allergy (Verified 05/21/19 12:02) - Review Of Systems ROS: No change since H&P - Vital Signs Vital Signs: Temperature 99.0 F Pulse Rate [Apical] 91 Pulse Rate [Left Brachial] 77 Pulse Rate 92 Respiratory Rate 22 Blood Pressure [Left Arm] 95/55 Blood Pressure [Right Arm] 124/58 Blood Pressure 115/55 O2 Sat by Pulse Oximetry 100 - Physical Exam Oriented: Normal Eyes: Normal Ear: Normal Nose: Normal Throat: Normal Respiratory: Generalized, Diminished Cardiovascular: Normal : Normal GI:Auscultation: Normal GI:Palpation: Normal GI: Tenderness: Diffuse (soft with diffuse tenderness . BS hypoactive .), Mild. negative: Rebound, Guarding, Rigidity Skin: Normal Musculoskeletal: Normal Psychiatric: Normal Mood Description: Calm Affect: Normal Speech Pattern: Clear, Appropriate - Laboratory and Diagnostics Result Diagrams: 05/26/19 06:37 05/26/19 08:24 Labs: Laboratory WBC 8.3 X10^3/uL (3.6-10.0) 05/26/19 06:37 RBC 2.98 X10^6/uL (3.5-5.4) L 05/26/19 06:37 Hgb 9.5 g/dL (12.0-16.0) L D 05/26/19 06:37 Hct 27.3 % (36.0-47.0) L 05/26/19 06:37 MCV 91.5 fL (80.0-100.0) 05/26/19 06:37 MCH 31.7 pg (27.0-34.0) 05/26/19 06:37 MCHC 34.7 g/dL (33.0-35.0) 05/26/19 06:37 RDW 17.9 % (11.6-16.5) H 05/26/19 06:37 Plt Count 241 X10^3/uL (150.0-450.0) 05/26/19 06:37 MPV 7.0 fL (7.4-11.0) L 05/26/19 06:37 Neut % (Auto) 72.2 % (42.0-75.0) 05/26/19 06:37 Lymph % (Auto) 13.8 % (21.0-51.0) L 05/26/19 06:37 [place] % (Auto) 11.0 % (0.0-13.0) 05/26/19 06:37 Eos % (Auto) 2.7 % (0.9-2.9) 05/26/19 06:37 Baso % (Auto) 0.3 % (0.2-1.0) 05/26/19 06:37 Neut # (Auto) 6.0 x10^3/uL (2.2-4.8) H 05/26/19 06:37 Lymph # (Auto) 1.2 X10^3/uL (1.3-2.9) L 05/26/19 06:37 [place] # (Auto) 0.9 x10^3/uL (0.3-0.8) H 05/26/19 06:37 Eos # (Auto) 0.2 x10^3/uL (0.0-0.2) 05/26/19 06:37 Baso # (Auto) 0.0 X10^3/uL (0.0-0.1) 05/26/19 06:37 Absolute Nucleated RBC 0.0 /100WBC 05/26/19 06:37 Sodium 134 mmol/L (136-145) L 05/26/19 06:37 Corrected Sodium 134 mmol/L (136-145) L 05/26/19 06:37 Potassium 4.0 mmol/L (3.5-5.1) 05/26/19 06:37 Chloride 101 mmol/L (98-107) 05/26/19 06:37 Carbon Dioxide 28.8 mmol/L (21-32) 05/26/19 06:37 BUN 12 mg/dL (7-18) 05/26/19 06:37 Creatinine 0.29 mg/dL (0.55-1.02) L 05/26/19 08:24 Est GFR (MDRD) Af Amer > 60 (>60) 05/26/19 06:37 Est GFR (MDRD) Non-Af > 60 (>60) 05/26/19 06:37 Glucose 116 mg/dL (65-99) H 05/26/19 06:37 POC Glucose (mg/dL) 99 mg/dL (65-99) 05/26/19 15:08 Calcium 7.5 mg/dL (8.5-10.1) L 05/26/19 06:37 Corrected Calcium 9.3 mg/dL (8.5-10.1) 05/26/19 06:37 Phosphorus < 0.5 mg/dL (2.6-4.7) L 05/26/19 06:37 Magnesium 1.5 mg/dL (1.7-2.9) L 05/26/19 06:37 Total Bilirubin 0.10 mg/dL (0.2-1.0) L 05/26/19 06:37 AST 14 Units/L (15-37) L 05/26/19 06:37 ALT 14 Units/L (12-78) 05/26/19 06:37 Alkaline Phosphatase 107 Units/L (46-116) 05/26/19 06:37 Total Protein 5.1 g/dL (6.4-8.2) L 05/26/19 06:37 Albumin 1.7 g/dL (3.4-5.0) L 05/26/19 06:37 Globulin 3.4 g/dL (2.5-4.5) 05/26/19 06:37 Albumin/Globulin Ratio 0.5 Ratio (1.1-2.1) L 05/26/19 06:37 Prealbumin 14.7 mg/dL (18-35.7) L 05/26/19 06:37 Triglycerides 181 mg/dL (0-150) H 05/26/19 06:37 Amylase 74 Units/L (25-115) 05/21/19 14:42 Lipase 110 Units/L (73-393) 05/21/19 14:42 Specimen Type Catherized urine 05/24/19 11:30 Urine Color Yellow (YELLOW) 05/24/19 11:30 Urine Appearance Hazy (CLEAR) 05/24/19 11:30 Urine pH 6.0 (5.0 - 8.0) 05/24/19 11:30 Ur Specific [place] 1.020 (1.000-1.030) 05/24/19 11:30 Urine Protein 1+ (NEGATIVE) 05/24/19 11:30 Urine Glucose (UA) 1+ (NEGATIVE) 05/24/19 11:30 Urine Ketones Negative (NEGATIVE) 05/24/19 11:30 Urine Occult Blood 1+ (NEGATIVE) 05/24/19 11:30 Urine Nitrite Negative (NEGATIVE) 05/24/19 11:30 Urine Bilirubin Negative (NEGATIVE) 05/24/19 11:30 Urine Urobilinogen Normal (NORMAL) 05/24/19 11:30 Ur Leukocyte Esterase Negative (NEGATIVE) 05/24/19 11:30 Urine RBC 0-2 /HPF (0-3) 05/24/19 11:30 Urine WBC None seen /HPF (0-5) 05/24/19 11:30 Ur Squamous Epith Cells Negative /HPF (NEGATIVE) 05/24/19 11:30 Amorphous Sediment 1+ /HPF (NEGATIVE) 05/24/19 11:30 Urine Bacteria Trace /HPF (NEGATIVE) 05/24/19 11:30 Ur Culture Indicated? No/not indicated 05/24/19 11:30 Vancomycin Trough 10.5 ug/mL (15-20) L 05/26/19 08:24 Cytology Specimen To follow 05/22/19 14:25 Tissue Pathology To follow 05/22/19 14:19 - Assessment and Plan 1: PO laparotomy , lysis of adhesions . Gastro-Jejunostomy. diverting colostomy . same TPN ,OOB and PO care . to d/c foly and NGT .. on clear liquid . - Problem Patient Problems: Patient Problems Pelvic abscess (Acute) Malnutrition (Acute) E46 Status post colostomy (Acute) Z93.3
[2019-05-26] MEDS ORDERED: NS IRRIGATION 500 ML IR ONE (15:38)
[2019-05-27] MEDS: DILAUDID INJ IVP PRN (00:59)
[2019-05-27] MEDS: ZOFRAN INJ 4 MG VIAL IVP PRN ×3 (01:06→21:35)
[2019-05-27 05:32] LABS: BASOPHILS % (AUTO) 0.3 % (0.2-1.0); EOSINOPHILS # (AUTO) 0.2 x10^3/uL (0.0-0.2); HEMATOCRIT 31.5 % (36.0-47.0); HEMOGLOBIN 10.7 g/dL (12.0-16.0); LYMPHOCYTES % (AUTO) 12.3 % (21.0-51.0); MEAN CORPUSCULAR HEMOGLOBIN 31.2 pg (27.0-34.0); MEAN CORPUSCULAR VOLUME 91.6 fL (80.0-100.0); MEAN PLATELET VOLUME 7.4 fL (7.4-11.0); MONOCYTES # (AUTO) 0.8 x10^3/uL (0.3-0.8); NEUTROPHILS # (AUTO) 6.4 x10^3/uL (2.2-4.8); NEUTROPHILS % (AUTO) 76.4 % (42.0-75.0); PLATELET COUNT 291 X10^3/uL (150.0-450.0); RED BLOOD COUNT 3.44 X10^6/uL (3.5-5.4); RED CELL DISTRIBUTION WIDTH 17.6 % (11.6-16.5); WHITE BLOOD COUNT 8.4 X10^3/uL (3.6-10.0)
[2019-05-27] MEDS: D5 1/2 NS 1000 ML 1,000 ML IV SCH ×3 (05:36→18:47)
[2019-05-27 05:43] LABS: ALANINE AMINOTRANSFERASE 13 Units/L (12-78); ALBUMIN 2.1 g/dL (3.4-5.0); ALKALINE PHOSPHATASE 133 Units/L (46-116); ASPARTATE AMINO TRANSFERASE 14 Units/L (15-37); BLOOD UREA NITROGEN 10 mg/dL (7-18); CALCIUM 7.9 mg/dL (8.5-10.1); CARBON DIOXIDE 30.3 mmol/L (21-32); CHLORIDE 99 mmol/L (98-107); COR CA(FOR HYPOALB) 9.4 mg/dL (8.5-10.1); COR NA(FOR HYPERGLY) 136 mmol/L (136-145); CREATININE 0.39 mg/dL (0.55-1.02); MAGNESIUM 1.8 mg/dL (1.7-2.9); PHOSPHORUS 0.6 mg/dL (2.6-4.7); SODIUM 136 mmol/L (136-145); TOTAL PROTEIN 6.2 g/dL (6.4-8.2); TRIGLYCERIDES 172 mg/dL (0-150); eGFR NON BLACK RACES > 60 (>60)
[2019-05-27] MEDS: MAGNESIUM SULFATE 1 GRAM/100 mL PREMIX 1 GM/100 ML BAG IV PRN (06:24)
[2019-05-27] MEDS: FLAGYL IV PREMIX 500 MG BAG 500 MG/100 ML BAG IV SCH ×2 (10:13→20:21)
[2019-05-27] MEDS: INVANZ INJ 1 GM VIAL 1 GM in NS 100 ML IV + SPIKE MINIBAG* 100 ML IV SCH (10:14)
[2019-05-27] MEDS: LOVENOX INJ 40 MG SYR SC SCH (10:14)
[2019-05-27] MEDS: PROTONIX INJ 40 MG VIAL IVP SCH (10:15)
[2019-05-27] MEDS: DEMEROL INJ IVP PRN ×2 (10:15→16:22)
--- NOTE | 2019-05-27 10:28 | DR.PROGNOT ---
Hospital Progress Notes - Progress Note for Day of: Progress Note Date: 05/27/19 - Chief Complaint Chief Complaint: PO day 3. occasional confusion and disorientation . abdominal pain is less now . tolerating clear liquid . colostomy is nit functioning yet . mild low grade fever . - Past Medical Family Social History Past Med/Fam/Surg Hx: No changes since H&P Allergies: Allergies lorazepam [From Ativan] Allergy (Verified 05/22/19 06:02) morphine Allergy (Verified 05/21/19 12:02) Penicillins Allergy (Verified 05/21/19 12:02) - Review Of Systems ROS: No change since H&P - Vital Signs Vital Signs: Temperature 99.8 F Pulse Rate [Apical] 89 Pulse Rate [Left Brachial] 77 Pulse Rate 92 Respiratory Rate 26 Blood Pressure [Left Arm] 121/56 Blood Pressure [Right Arm] 124/58 Blood Pressure 115/55 O2 Sat by Pulse Oximetry 100 - Physical Exam Oriented: Other (confused at times .( medications related and poor oral intake ).) Eyes: Normal Ear: Normal Nose: Normal Throat: Normal Respiratory: Generalized, Diminished Cardiovascular: Normal : Normal GI:Auscultation: Normal GI:Palpation: Normal GI: Tenderness: Diffuse (soft with diffuse tenderness . BS hypoactive .), Mild. negative: Rebound, Guarding, Rigidity Skin: Normal Musculoskeletal: Normal Psychiatric: Normal Mood Description: Calm Affect: Normal Speech Pattern: Clear, Appropriate - Laboratory and Diagnostics Result Diagrams: 05/27/19 04:11 05/27/19 04:11 Labs: Laboratory WBC 8.4 X10^3/uL (3.6-10.0) 05/27/19 04:11 RBC 3.44 X10^6/uL (3.5-5.4) L 05/27/19 04:11 Hgb 10.7 g/dL (12.0-16.0) L 05/27/19 04:11 Hct 31.5 % (36.0-47.0) L 05/27/19 04:11 MCV 91.6 fL (80.0-100.0) 05/27/19 04:11 MCH 31.2 pg (27.0-34.0) 05/27/19 04:11 MCHC 34.0 g/dL (33.0-35.0) 05/27/19 04:11 RDW 17.6 % (11.6-16.5) H 05/27/19 04:11 Plt Count 291 X10^3/uL (150.0-450.0) 05/27/19 04:11 MPV 7.4 fL (7.4-11.0) 05/27/19 04:11 Neut % (Auto) 76.4 % (42.0-75.0) H 05/27/19 04:11 Lymph % (Auto) 12.3 % (21.0-51.0) L 05/27/19 04:11 [place] % (Auto) 9.0 % (0.0-13.0) 05/27/19 04:11 Eos % (Auto) 2.0 % (0.9-2.9) 05/27/19 04:11 Baso % (Auto) 0.3 % (0.2-1.0) 05/27/19 04:11 Neut # (Auto) 6.4 x10^3/uL (2.2-4.8) H 05/27/19 04:11 Lymph # (Auto) 1.0 X10^3/uL (1.3-2.9) L 05/27/19 04:11 [place] # (Auto) 0.8 x10^3/uL (0.3-0.8) 05/27/19 04:11 Eos # (Auto) 0.2 x10^3/uL (0.0-0.2) 05/27/19 04:11 Baso # (Auto) 0.0 X10^3/uL (0.0-0.1) 05/27/19 04:11 Absolute Nucleated RBC 0.0 /100WBC 05/27/19 04:11 Sodium 136 mmol/L (136-145) 05/27/19 04:11 Corrected Sodium 136 mmol/L (136-145) 05/27/19 04:11 Potassium 3.3 mmol/L (3.5-5.1) L 05/27/19 04:11 Chloride 99 mmol/L (98-107) 05/27/19 04:11 Carbon Dioxide 30.3 mmol/L (21-32) 05/27/19 04:11 BUN 10 mg/dL (7-18) 05/27/19 04:11 Creatinine 0.39 mg/dL (0.55-1.02) L 05/27/19 04:11 Est GFR (MDRD) Af Amer > 60 (>60) 05/27/19 04:11 Est GFR (MDRD) Non-Af > 60 (>60) 05/27/19 04:11 Glucose 114 mg/dL (65-99) H 05/27/19 04:11 POC Glucose (mg/dL) 108 mg/dL (65-99) H 05/27/19 05:15 Calcium 7.9 mg/dL (8.5-10.1) L 05/27/19 04:11 Corrected Calcium 9.4 mg/dL (8.5-10.1) 05/27/19 04:11 Phosphorus 0.6 mg/dL (2.6-4.7) L 05/27/19 04:11 Magnesium 1.8 mg/dL (1.7-2.9) 05/27/19 04:11 Total Bilirubin 0.10 mg/dL (0.2-1.0) L 05/27/19 04:11 AST 14 Units/L (15-37) L 05/27/19 04:11 ALT 13 Units/L (12-78) 05/27/19 04:11 Alkaline Phosphatase 133 Units/L (46-116) H 05/27/19 04:11 Total Protein 6.2 g/dL (6.4-8.2) L 05/27/19 04:11 Albumin 2.1 g/dL (3.4-5.0) L 05/27/19 04:11 Globulin 4.1 g/dL (2.5-4.5) 05/27/19 04:11 Albumin/Globulin Ratio 0.5 Ratio (1.1-2.1) L 05/27/19 04:11 Prealbumin 16.0 mg/dL (18-35.7) L 05/27/19 04:11 Triglycerides 172 mg/dL (0-150) H 05/27/19 04:11 Amylase 74 Units/L (25-115) 05/21/19 14:42 Lipase 110 Units/L (73-393) 05/21/19 14:42 Specimen Type Catherized urine 05/24/19 11:30 Urine Color Yellow (YELLOW) 05/24/19 11:30 Urine Appearance Hazy (CLEAR) 05/24/19 11:30 Urine pH 6.0 (5.0 - 8.0) 05/24/19 11:30 Ur Specific [place] 1.020 (1.000-1.030) 05/24/19 11:30 Urine Protein 1+ (NEGATIVE) 05/24/19 11:30 Urine Glucose (UA) 1+ (NEGATIVE) 05/24/19 11:30 Urine Ketones Negative (NEGATIVE) 05/24/19 11:30 Urine Occult Blood 1+ (NEGATIVE) 05/24/19 11:30 Urine Nitrite Negative (NEGATIVE) 05/24/19 11:30 Urine Bilirubin Negative (NEGATIVE) 05/24/19 11:30 Urine Urobilinogen Normal (NORMAL) 05/24/19 11:30 Ur Leukocyte Esterase Negative (NEGATIVE) 05/24/19 11:30 Urine RBC 0-2 /HPF (0-3) 05/24/19 11:30 Urine WBC None seen /HPF (0-5) 05/24/19 11:30 Ur Squamous Epith Cells Negative /HPF (NEGATIVE) 05/24/19 11:30 Amorphous Sediment 1+ /HPF (NEGATIVE) 05/24/19 11:30 Urine Bacteria Trace /HPF (NEGATIVE) 05/24/19 11:30 Ur Culture Indicated? No/not indicated 05/24/19 11:30 Vancomycin Trough 10.5 ug/mL (15-20) L 05/26/19 08:24 Cytology Specimen To follow 05/22/19 14:25 Tissue Pathology To follow 05/22/19 14:19 - Assessment and Plan 1: PO laparotomy , lysis of adhesions . Gastro-Jejunostomy. diverting colostomy . same TPN ,OOB and PO care . full liquid diet . - Problem Patient Problems: Patient Problems Pelvic abscess (Acute) Malnutrition (Acute) E46 Status post colostomy (Acute) Z93.3
[2019-05-27] MEDS: CLINIMIX 5 %/20 % 1,000 ML with MVI INJ (ADULT) 10 ML, TRACE ELEMENTS INJ 10 ML, TPN EL... IV SCH ×10 (11:44→22:25)
[2019-05-27] MEDS: VANCOMYCIN HCL 750 MG in D5W 250 ML IV 250 ML IV SCH ×2 (11:45→20:36)
[2019-05-27] MEDS: NORCO 5/325 MG TAB PO PRN ×2 (14:35→20:22)
[2019-05-27] MEDS: PEPCID 20 MG IV PREMIX* 10 MG/25 ML BAG IV PRN (21:35)
--- NOTE | 2019-05-27 21:44 | PCM.PROG ---
Progress Note - Progress Note for Day of Date of Exam: 05/26/19 - Subjective Subjective: WAS ADMITTED FOR TREATMENT OF MALNUTRITION, PELVIC ABSCESS, ABDOMINAL PAIN, AND N/V. SHE IS DAY 2 STATUS POST EXPLORATORY LAP, LYSIS OF EXTENSIVE ADHESION,S GASTRO JEJUNOSTOMY, AND COMPLETE DIVERTING COLOSTOMY. TODAY, SHE IS ALERT AND ORIENTED, LYING IN BED ON MORNING ROUNDS. SHE CONTINUES WITH COMPLAINTS OF ABDOMINAL PAIN, BUT REPORTS SLIGHT IMPROVEMENT IN SYMPTOMS. SHE ALSO REPORTS A RIGHT SIDED EAR ACHE. ON EXAMINATION, THERE IS A NG TUBE NOTED TO INTERMITTENT SUCTION. HEART IS REGULAR IN RATE AND RHYTHM. BILATERAL LUNGS ARE NOTED WITH DIMINISHED LUNG SOUNDS THROUGHOUT. ABDOMEN IS FLAT, SOFT, AND NOTED WITH DIFFUSE TENDERNESS. HYPOACTIVE BOWEL SOUNDS ARE NOTED IN ALL QUARANTS. THERE IS A COLOSTOMY NOTED. NO STOOL PRESENT IN BAG AT THIS TIME. HER VITALS THIS MORNING ARE: 99.0-100-20-98%-116/68. LABS WERE OBTAINED. ABNORMAL LAB VALUES INCLUDE THE FOLLOWING: RBC 2.98, HGB 9.5, HCT 27.3, SODIUM 134, CREATININE 0.32, GLUCOSE 116, CALCIUM 7.5, MAGNESIUM 1.5, TOTAL BILI 0.10, AST 14, TOTAL PROTEIN 5.1, ALBUMIN 1.7, TRIGLYCERIDES 181. SHE IS CURRENTLY RECEIVING: TPN, INVANZ 1G IV DAILY, VANCOMYCIN 500MG IV DAILY, IV PEPCID, IV PROTONIX, ZOFRAN 4MG IV Q8H PRN, DEMEROL 25MG IV Q6H PRN, FLAGYL IV, AND HOME MEDICATIONS WERE RESUMED. WE WILL CONTINUE WITH CURRENT PLAN OF CARE TODAY AND ADD CIPRODEX EAR DROPS TWICE A DAY. PHYSICAL THERAPY WILL WORK WITH PATIENT. OTHERWISE, WE PLAN TO FOLLOW UP WITH AM LABS AND CONTINUE TO MONITOR. - Past Medical Family Social History Past Med/Fam/Surg Hx: No changes since H&P Allergies: Allergies lorazepam [From Ativan] Allergy (Verified 05/22/19 06:02) morphine Allergy (Verified 05/21/19 12:02) Penicillins Allergy (Verified 05/21/19 12:02) - Review of Systems ROS: No change since H&P - Vital Signs and I&O's Vital Signs: Temperature 99.9 F Pulse Rate [Apical] 91 Pulse Rate [Left Brachial] 77 Pulse Rate 92 Respiratory Rate 22 Blood Pressure [Left Arm] 112/54 Blood Pressure [Right Arm] 124/58 Blood Pressure 115/55 O2 Sat by Pulse Oximetry 100 Intake and Output: Intake & Output 05/25/19 05/26/19 05/27/19 05/28/19 11:59 11:59 11:59 11:59 Intake Total 6090 / 6090 3633 / 3633 3638 / 3638 1871 / 1871 Output Total 1727 / 1727 2193 / 2193 3295 / 3295 2415 / 2415 Balance 4363 / 4363 1440 / 1440 343 / 343 -544 / -544 - Physical Exam Oriented: Other (confused at times .( medications related and poor oral intake ).) Eyes: Normal Ear: Right (RIGHT EAR PAIN ) Nose: Normal Throat: Normal Respiratory: Generalized, Diminished Cardiovascular: Normal : Normal Auscultation: Bowel Sounds: Normal Tenderness: Diffuse (soft with diffuse tenderness . BS hypoactive .), Mild. ne gative: Rebound, Guarding, Rigidity Skin: Normal Musculoskeletal: Normal Psychiatric: Normal Mood Description: Calm Affect: Normal Speech Pattern: Clear, Appropriate - Laboratory and Diagnostics Result Diagrams: 05/27/19 04:11 05/27/19 04:11 Labs: Laboratory WBC 8.4 X10^3/uL (3.6-10.0) 05/27/19 04:11 RBC 3.44 X10^6/uL (3.5-5.4) L 05/27/19 04:11 Hgb 10.7 g/dL (12.0-16.0) L 05/27/19 04:11 Hct 31.5 % (36.0-47.0) L 05/27/19 04:11 MCV 91.6 fL (80.0-100.0) 05/27/19 04:11 MCH 31.2 pg (27.0-34.0) 05/27/19 04:11 MCHC 34.0 g/dL (33.0-35.0) 05/27/19 04:11 RDW 17.6 % (11.6-16.5) H 05/27/19 04:11 Plt Count 291 X10^3/uL (150.0-450.0) 05/27/19 04:11 MPV 7.4 fL (7.4-11.0) 05/27/19 04:11 Neut % (Auto) 76.4 % (42.0-75.0) H 05/27/19 04:11 Lymph % (Auto) 12.3 % (21.0-51.0) L 05/27/19 04:11 [place] % (Auto) 9.0 % (0.0-13.0) 05/27/19 04:11 Eos % (Auto) 2.0 % (0.9-2.9) 05/27/19 04:11 Baso % (Auto) 0.3 % (0.2-1.0) 05/27/19 04:11 Neut # (Auto) 6.4 x10^3/uL (2.2-4.8) H 05/27/19 04:11 Lymph # (Auto) 1.0 X10^3/uL (1.3-2.9) L 05/27/19 04:11 [place] # (Auto) 0.8 x10^3/uL (0.3-0.8) 05/27/19 04:11 Eos # (Auto) 0.2 x10^3/uL (0.0-0.2) 05/27/19 04:11 Baso # (Auto) 0.0 X10^3/uL (0.0-0.1) 05/27/19 04:11 Absolute Nucleated RBC 0.0 /100WBC 05/27/19 04:11 Sodium 136 mmol/L (136-145) 05/27/19 04:11 Corrected Sodium 136 mmol/L (136-145) 05/27/19 04:11 Potassium 3.3 mmol/L (3.5-5.1) L 05/27/19 04:11 Chloride 99 mmol/L (98-107) 05/27/19 04:11 Carbon Dioxide 30.3 mmol/L (21-32) 05/27/19 04:11 BUN 10 mg/dL (7-18) 05/27/19 04:11 Creatinine 0.39 mg/dL (0.55-1.02) L 05/27/19 04:11 Est GFR (MDRD) Af Amer > 60 (>60) 05/27/19 04:11 Est GFR (MDRD) Non-Af > 60 (>60) 05/27/19 04:11 Glucose 114 mg/dL (65-99) H 05/27/19 04:11 POC Glucose (mg/dL) 104 mg/dL (65-99) H 05/27/19 20:47 Calcium 7.9 mg/dL (8.5-10.1) L 05/27/19 04:11 Corrected Calcium 9.4 mg/dL (8.5-10.1) 05/27/19 04:11 Phosphorus 0.6 mg/dL (2.6-4.7) L 05/27/19 04:11 Magnesium 1.8 mg/dL (1.7-2.9) 05/27/19 04:11 Total Bilirubin 0.10 mg/dL (0.2-1.0) L 05/27/19 04:11 AST 14 Units/L (15-37) L 05/27/19 04:11 ALT 13 Units/L (12-78) 05/27/19 04:11 Alkaline Phosphatase 133 Units/L (46-116) H 05/27/19 04:11 Total Protein 6.2 g/dL (6.4-8.2) L 05/27/19 04:11 Albumin 2.1 g/dL (3.4-5.0) L 05/27/19 04:11 Globulin 4.1 g/dL (2.5-4.5) 05/27/19 04:11 Albumin/Globulin Ratio 0.5 Ratio (1.1-2.1) L 05/27/19 04:11 Prealbumin 16.0 mg/dL (18-35.7) L 05/27/19 04:11 Triglycerides 172 mg/dL (0-150) H 05/27/19 04:11 Amylase 74 Units/L (25-115) 05/21/19 14:42 Lipase 110 Units/L (73-393) 05/21/19 14:42 Specimen Type Catherized urine 05/24/19 11:30 Urine Color Yellow (YELLOW) 05/24/19 11:30 Urine Appearance Hazy (CLEAR) 05/24/19 11:30 Urine pH 6.0 (5.0 - 8.0) 05/24/19 11:30 Ur Specific [place] 1.020 (1.000-1.030) 05/24/19 11:30 Urine Protein 1+ (NEGATIVE) 05/24/19 11:30 Urine Glucose (UA) 1+ (NEGATIVE) 05/24/19 11:30 Urine Ketones Negative (NEGATIVE) 05/24/19 11:30 Urine Occult Blood 1+ (NEGATIVE) 05/24/19 11:30 Urine Nitrite Negative (NEGATIVE) 05/24/19 11:30 Urine Bilirubin Negative (NEGATIVE) 05/24/19 11:30 Urine Urobilinogen Normal (NORMAL) 05/24/19 11:30 Ur Leukocyte Esterase Negative (NEGATIVE) 05/24/19 11:30 Urine RBC 0-2 /HPF (0-3) 05/24/19 11:30 Urine WBC None seen /HPF (0-5) 05/24/19 11:30 Ur Squamous Epith Cells Negative /HPF (NEGATIVE) 05/24/19 11:30 Amorphous Sediment 1+ /HPF (NEGATIVE) 05/24/19 11:30 Urine Bacteria Trace /HPF (NEGATIVE) 05/24/19 11:30 Ur Culture Indicated? No/not indicated 05/24/19 11:30 Vancomycin Trough 10.5 ug/mL (15-20) L 05/26/19 08:24 Cytology Specimen To follow 05/22/19 14:25 Tissue Pathology To follow 05/22/19 14:19 - Plan (1) Pelvic abscess Status: Acute Plan: SURGERY TODAY, INVANZ 1G IV DAILY, VANCOMYCIN 500MG IV DAILY, IV PEPCID, ZOFRAN 4MG IV Q8H PRN, DEMEROL 25MG IV Q6H PRN, AND HOME MEDICATIONS WERE RESUM ED (2) Abdominal pain Status: Acute Qualifiers: Abdominal location: lower abdomen, unspecified Qualified Code(s): R10.30 - Lower abdominal pain, unspecified (3) Status post colostomy Status: Acute Plan: COLOSTOMY CARE AND TEACHING, CONTINUE TO MONITOR (4) Nausea & vomiting Status: Acute Qualifiers: Vomiting type: unspecified Vomiting Intractability: non-intractable Qualified Code(s): R11.2 - Nausea with vomiting, unspecified Plan: ZOFRAN 4MG IV Q8H PRN, CONTINUE TO MONITOR (5) Malnutrition Status: Acute Qualifiers: Malnutrition type: protein-calorie malnutrition Protein-calorie malnutrition severity: unspecified severity Qualified Code(s): E46 - Unspecified protein-calorie malnutrition Plan: TPN, CONTINUE TO MONITOR
[2019-05-27] MEDS: K-RIDER 10 MEQ/NS 100 ML 10 MEQ/100 ML BAG IV PRN (23:33)
[2019-05-28] MEDS ORDERED: REGLAN INJ 10 MG VIAL IVP ONE (00:04)
[2019-05-28] MEDS ORDERED: REGLAN INJ 10 MG VIAL ONE (00:05)
[2019-05-28] MEDS: NORCO 5/325 MG TAB PO PRN ×3 (00:07→21:30)
[2019-05-28] MEDS: D5 1/2 NS 1000 ML 1,000 ML IV SCH ×2 (03:13→19:11)
[2019-05-28] MEDS: DEMEROL INJ IVP PRN ×3 (04:27→23:32)
[2019-05-28] MEDS: ZOFRAN INJ 4 MG VIAL IVP PRN ×3 (04:36→20:15)
[2019-05-28 05:39] LABS: PREALBUMIN 16.9 mg/dL (18-35.7)
[2019-05-28 06:00] LABS: BASOPHILS % (AUTO) 0.5 % (0.2-1.0); EOSINOPHILS # (AUTO) 0.2 x10^3/uL (0.0-0.2); EOSINOPHILS % (AUTO) 2.4 % (0.9-2.9); HEMATOCRIT 30.3 % (36.0-47.0); HEMOGLOBIN 10.5 g/dL (12.0-16.0); LYMPHOCYTES % (AUTO) 12.4 % (21.0-51.0); MEAN CORPUSCULAR HEMOGLOBIN 31.7 pg (27.0-34.0); MEAN CORPUSCULAR HGB CONC 34.7 g/dL (33.0-35.0); MEAN CORPUSCULAR VOLUME 91.2 fL (80.0-100.0); MONOCYTES # (AUTO) 0.6 x10^3/uL (0.3-0.8); MONOCYTES % (AUTO) 7.6 % (0.0-13.0); NEUTROPHILS # (AUTO) 6.5 x10^3/uL (2.2-4.8); NEUTROPHILS % (AUTO) 77.1 % (42.0-75.0); PLATELET COUNT 311 X10^3/uL (150.0-450.0); RED BLOOD COUNT 3.33 X10^6/uL (3.5-5.4); RED CELL DISTRIBUTION WIDTH 17.5 % (11.6-16.5); WHITE BLOOD COUNT 8.4 X10^3/uL (3.6-10.0)
[2019-05-28 06:03] LABS: ALANINE AMINOTRANSFERASE 15 Units/L (12-78); ALBUMIN 2.1 g/dL (3.4-5.0); ALKALINE PHOSPHATASE 128 Units/L (46-116); ASPARTATE AMINO TRANSFERASE 16 Units/L (15-37); BLOOD UREA NITROGEN 9 mg/dL (7-18); CALCIUM 8.1 mg/dL (8.5-10.1); CARBON DIOXIDE 26.9 mmol/L (21-32); CHLORIDE 101 mmol/L (98-107); COR CA(FOR HYPOALB) 9.6 mg/dL (8.5-10.1); COR NA(FOR HYPERGLY) 138 mmol/L (136-145); CREATININE 0.41 mg/dL (0.55-1.02); MAGNESIUM 1.7 mg/dL (1.7-2.9); PHOSPHORUS 0.6 mg/dL (2.6-4.7); SODIUM 137 mmol/L (136-145); TOTAL PROTEIN 6.3 g/dL (6.4-8.2); TRIGLYCERIDES 130 mg/dL (0-150); eGFR NON BLACK RACES > 60 (>60)
[2019-05-28 09:28] LABS: CREATININE 0.34 mg/dL (0.55-1.02); VANCOMYCIN,TROUGH 10.2 ug/mL (15-20)
[2019-05-28] MEDS: FLAGYL IV PREMIX 500 MG BAG 500 MG/100 ML BAG IV SCH ×2 (10:33→20:15)
[2019-05-28] MEDS: PROTONIX INJ 40 MG VIAL IVP SCH (10:34)
[2019-05-28] MEDS: INVANZ INJ 1 GM VIAL 1 GM in NS 100 ML IV + SPIKE MINIBAG* 100 ML IV SCH (10:34)
[2019-05-28] MEDS: CLINIMIX 5 %/20 % 1,000 ML with MVI INJ (ADULT) 10 ML, TRACE ELEMENTS INJ 10 ML, TPN EL... IV SCH ×10 (10:35→21:44)
--- NOTE | 2019-05-28 10:54 | PCM.PROG ---
Progress Note - Progress Note for Day of Date of Exam: 05/27/19 - Subjective Subjective: WAS ADMITTED FOR TREATMENT OF MALNUTRITION, PELVIC ABSCESS, ABDOMINAL PAIN, AND N/V. SHE IS DAY 3 STATUS POST EXPLORATORY LAP, LYSIS OF EXTENSIVE ADHESIONS, GASTRO JEJUNOSTOMY, AND COMPLETE DIVERTING COLOSTOMY. TODAY, SHE IS ALERT AND ORIENTED, LYING IN BED ON MORNING ROUNDS. SHE CONTINUES WITH COMPLAINTS OF ABDOMINAL PAIN, BUT REPORTS SLIGHT IMPROVEMENT IN SYMPTOMS. NG TUBE HAS BEEN REMOVED. ON EXAMINATION, HEART IS REGULAR IN RATE AND RHYTHM. BILATERAL LUNGS ARE NOTED WITH DIMINISHED LUNG SOUNDS THROUGHOUT. ABDOMEN IS FLAT, SOFT, AND NOTED WITH DIFFUSE TENDERNESS. DRESSING NOTED TO ABDOMEN. HYPOACTIVE BOWEL SOUNDS ARE NOTED IN ALL QUARANTS. THERE IS A COLOSTOMY NOTED. NO STOOL PRESENT IN BAG AT THIS TIME. HER VITALS THIS MORNING ARE: 98.2-873-81-100-121/57. LABS WERE OBTAINED. ABNORMAL LAB VALUES INCLUDE THE FOLLOWING: RBC 3.44, HGB 10.7, HCT 31.5, POTASSIUM 3.3, CREATININE 0.39, GLUCOSE 114, CALCIUM 7.9, TOTAL BILI 0.10, AST 14, ALK PHOS 133, TOTAL PROTEIN 6.2, ALBU MIN 2.1, PREALBUMIN 16.0, TRIGLYCERIDES 172. SHE IS CURRENTLY RECEIVING: TPN, INVANZ 1G IV DAILY, VANCOMYCIN 500MG IV DAILY, IV PEPCID, IV PROTONIX, ZOFRAN 4MG IV Q8H PRN, DEMEROL 25MG IV Q6H PRN, FLAGYL IV, AND HOME MEDICATIONS WERE RESUMED. SHE IS ON A CLEAR LIQUID DIET. WE WILL CONTINUE WITH CURRENT PLAN OF CARE TODAY AND ADD NORCO 1 TABLET Q4H PRN PAIN. PHYSICAL THERAPY WILL WORK WITH PATIENT. OTHERWISE, WE PLAN TO FOLLOW UP WITH AM LABS AND CONTINUE TO MONITOR. - Past Medical Family Social History Past Med/Fam/Surg Hx: No changes since H&P Allergies: Allergies lorazepam [From Ativan] Allergy (Verified 05/22/19 06:02) morphine Allergy (Verified 05/21/19 12:02) Penicillins Allergy (Verified 05/21/19 12:02) - Review of Systems ROS: No change since H&P - Vital Signs and I&O's Vital Signs: Temperature 99.6 F Pulse Rate [Apical] 84 Pulse Rate [Left Brachial] 77 Pulse Rate 92 Respiratory Rate 20 Blood Pressure [Left Arm] 124/60 Blood Pressure [Right Arm] 124/58 Blood Pressure 115/55 O2 Sat by Pulse Oximetry 99 Intake and Output: Intake & Output 05/25/19 05/26/19 05/27/19 05/28/19 11:59 11:59 11:59 11:59 Intake Total 6090 / 6090 3633 / 3633 3638 / 3638 3704 / 3704 Output Total 1727 / 1727 2193 / 2193 3295 / 3295 3930 / 3930 Balance 4363 / 4363 1440 / 1440 343 / 343 -226 / -226 - Physical Exam Oriented: Normal Eyes: Normal Ear: Right (RIGHT EAR PAIN ) Nose: Normal Throat: Normal Respiratory: Generalized, Diminished Cardiovascular: Normal : Normal Auscultation: Bowel Sounds: Normal Palpation: Normal Tenderness: Diffuse (soft with diffuse tenderness . BS hypoactive .), Mild. negative: Rebound, Guarding, Rigidity Skin: Normal Musculoskeletal: Normal Psychiatric: Normal Mood Description: Calm Affect: Normal Speech Pattern: Clear, Appropriate - Laboratory and Diagnostics Result Diagrams: 05/28/19 04:18 05/28/19 08:40 Labs: Laboratory WBC 8.4 X10^3/uL (3.6-10.0) 05/28/19 04:18 RBC 3.33 X10^6/uL (3.5-5.4) L 05/28/19 04:18 Hgb 10.5 g/dL (12.0-16.0) L 05/28/19 04:18 Hct 30.3 % (36.0-47.0) L 05/28/19 04:18 MCV 91.2 fL (80.0-100.0) 05/28/19 04:18 MCH 31.7 pg (27.0-34.0) 05/28/19 04:18 MCHC 34.7 g/dL (33.0-35.0) 05/28/19 04:18 RDW 17.5 % (11.6-16.5) H 05/28/19 04:18 Plt Count 311 X10^3/uL (150.0-450.0) 05/28/19 04:18 MPV 7.0 fL (7.4-11.0) L 05/28/19 04:18 Neut % (Auto) 77.1 % (42.0-75.0) H 05/28/19 04:18 Lymph % (Auto) 12.4 % (21.0-51.0) L 05/28/19 04:18 [place] % (Auto) 7.6 % (0.0-13.0) 05/28/19 04:18 Eos % (Auto) 2.4 % (0.9-2.9) 05/28/19 04:18 Baso % (Auto) 0.5 % (0.2-1.0) 05/28/19 04:18 Neut # (Auto) 6.5 x10^3/uL (2.2-4.8) H 05/28/19 04:18 Lymph # (Auto) 1.0 X10^3/uL (1.3-2.9) L 05/28/19 04:18 [place] # (Auto) 0.6 x10^3/uL (0.3-0.8) 05/28/19 04:18 Eos # (Auto) 0.2 x10^3/uL (0.0-0.2) 05/28/19 04:18 Baso # (Auto) 0.0 X10^3/uL (0.0-0.1) 05/28/19 04:18 Absolute Nucleated RBC 0.0 /100WBC 05/28/19 04:18 Sodium 137 mmol/L (136-145) 05/28/19 04:18 Corrected Sodium 138 mmol/L (136-145) 05/28/19 04:18 Potassium 3.5 mmol/L (3.5-5.1) 05/28/19 04:18 Chloride 101 mmol/L (98-107) 05/28/19 04:18 Carbon Dioxide 26.9 mmol/L (21-32) 05/28/19 04:18 BUN 9 mg/dL (7-18) 05/28/19 04:18 Creatinine 0.34 mg/dL (0.55-1.02) L 05/28/19 08:40 Est GFR (MDRD) Af Amer > 60 (>60) 05/28/19 04:18 Est GFR (MDRD) Non-Af > 60 (>60) 05/28/19 04:18 Glucose 138 mg/dL (65-99) H 05/28/19 04:18 POC Glucose (mg/dL) 152 mg/dL (65-99) H 05/28/19 05:24 Calcium 8.1 mg/dL (8.5-10.1) L 05/28/19 04:18 Corrected Calcium 9.6 mg/dL (8.5-10.1) 05/28/19 04:18 Phosphorus 0.6 mg/dL (2.6-4.7) L 05/28/19 04:18 Magnesium 1.7 mg/dL (1.7-2.9) 05/28/19 04:18 Total Bilirubin 0.10 mg/dL (0.2-1.0) L 05/28/19 04:18 AST 16 Units/L (15-37) 05/28/19 04:18 ALT 15 Units/L (12-78) 05/28/19 04:18 Alkaline Phosphatase 128 Units/L (46-116) H 05/28/19 04:18 Total Protein 6.3 g/dL (6.4-8.2) L 05/28/19 04:18 Albumin 2.1 g/dL (3.4-5.0) L 05/28/19 04:18 Globulin 4.2 g/dL (2.5-4.5) 05/28/19 04:18 Albumin/Globulin Ratio 0.5 Ratio (1.1-2.1) L 05/28/19 04:18 Prealbumin 16.9 mg/dL (18-35.7) L 05/28/19 04:18 Triglycerides 130 mg/dL (0-150) 05/28/19 04:18 Amylase 74 Units/L (25-115) 05/21/19 14:42 Lipase 110 Units/L (73-393) 05/21/19 14:42 Specimen Type Catherized urine 05/24/19 11:30 Urine Color Yellow (YELLOW) 05/24/19 11:30 Urine Appearance Hazy (CLEAR) 05/24/19 11:30 Urine pH 6.0 (5.0 - 8.0) 05/24/19 11:30 Ur Specific [place] 1.020 (1.000-1.030) 05/24/19 11:30 Urine Protein 1+ (NEGATIVE) 05/24/19 11:30 Urine Glucose (UA) 1+ (NEGATIVE) 05/24/19 11:30 Urine Ketones Negative (NEGATIVE) 05/24/19 11:30 Urine Occult Blood 1+ (NEGATIVE) 05/24/19 11:30 Urine Nitrite Negative (NEGATIVE) 05/24/19 11:30 Urine Bilirubin Negative (NEGATIVE) 05/24/19 11:30 Urine Urobilinogen Normal (NORMAL) 05/24/19 11:30 Ur Leukocyte Esterase Negative (NEGATIVE) 05/24/19 11:30 Urine RBC 0-2 /HPF (0-3) 05/24/19 11:30 Urine WBC None seen /HPF (0-5) 05/24/19 11:30 Ur Squamous Epith Cells Negative /HPF (NEGATIVE) 05/24/19 11:30 Amorphous Sediment 1+ /HPF (NEGATIVE) 05/24/19 11:30 Urine Bacteria Trace /HPF (NEGATIVE) 05/24/19 11:30 Ur Culture Indicated? No/not indicated 05/24/19 11:30 Vancomycin Trough 10.2 ug/mL (15-20) L 05/28/19 08:40 Cytology Specimen To follow 05/22/19 14:25 Tissue Pathology To follow 05/22/19 14:19 - Plan (1) Pelvic abscess Status: Acute Plan: INVANZ 1G IV DAILY, VANCOMYCIN 500MG IV DAILY, IV PEPCID, ZOFRAN 4MG IV Q8H PRN, NORCO PRN, DEMEROL 25MG IV Q6H PRN, AND HOME MEDICATIONS WERE RESUMED (2) Abdominal pain Status: Acute Qualifiers: Abdominal location: lower abdomen, unspecified Qualified Code(s): R10.30 - Lower abdominal pain, unspecified (3) Status post colostomy Status: Acute Plan: COLOSTOMY CARE AND TEACHING, CONTINUE TO MONITOR (4) Nausea & vomiting Status: Acute Qualifiers: Vomiting type: unspecified Vomiting Intractability: non-intractable Qualified Code(s): R11.2 - Nausea with vomiting, unspecified Plan: ZOFRAN 4MG IV Q8H PRN, CONTINUE TO MONITOR (5) Malnutrition Status: Acute Qualifiers: Malnutrition type: protein-calorie malnutrition Protein-calorie malnutrition severity: unspecified severity Qualified Code(s): E46 - Unspecified protein-calorie malnutrition Plan: TPN, CONTINUE TO MONITOR
--- NOTE | 2019-05-28 11:10 | DR.PROGNOT ---
Hospital Progress Notes - Progress Note for Day of: Progress Note Date: 05/28/19 - Chief Complaint Chief Complaint: PO day 4. occasional confusion and disorientation . was c/o nausea and vomited small amount of bile this am . only mild abdominal pain. colostomy is not functioning yet . mild low grade fever . - Past Medical Family Social History Past Med/Fam/Surg Hx: No changes since H&P Allergies: Allergies lorazepam [From Ativan] Allergy (Verified 05/22/19 06:02) morphine Allergy (Verified 05/21/19 12:02) Penicillins Allergy (Verified 05/21/19 12:02) - Review Of Systems ROS: No change since H&P - Vital Signs Vital Signs: Temperature 99.6 F Pulse Rate [Apical] 84 Pulse Rate [Left Brachial] 77 Pulse Rate 92 Respiratory Rate 20 Blood Pressure [Left Arm] 124/60 Blood Pressure [Right Arm] 124/58 Blood Pressure 115/55 O2 Sat by Pulse Oximetry 99 - Physical Exam Oriented: Normal Eyes: Normal Ear: Right (RIGHT EAR PAIN ) Nose: Normal Throat: Normal Respiratory: Generalized, Diminished Cardiovascular: Normal : Normal GI:Auscultation: Normal GI:Palpation: Normal GI: Tenderness: Diffuse (soft with diffuse tenderness . BS hypoactive .), Mild. negative: Rebound, Guarding, Rigidity Skin: Normal Musculoskeletal: Normal Psychiatric: Normal Mood Description: Calm Affect: Normal Speech Pattern: Clear, Appropriate - Laboratory and Diagnostics Result Diagrams: 05/28/19 04:18 05/28/19 08:40 Labs: Laboratory WBC 8.4 X10^3/uL (3.6-10.0) 05/28/19 04:18 RBC 3.33 X10^6/uL (3.5-5.4) L 05/28/19 04:18 Hgb 10.5 g/dL (12.0-16.0) L 05/28/19 04:18 Hct 30.3 % (36.0-47.0) L 05/28/19 04:18 MCV 91.2 fL (80.0-100.0) 05/28/19 04:18 MCH 31.7 pg (27.0-34.0) 05/28/19 04:18 MCHC 34.7 g/dL (33.0-35.0) 05/28/19 04:18 RDW 17.5 % (11.6-16.5) H 05/28/19 04:18 Plt Count 311 X10^3/uL (150.0-450.0) 05/28/19 04:18 MPV 7.0 fL (7.4-11.0) L 05/28/19 04:18 Neut % (Auto) 77.1 % (42.0-75.0) H 05/28/19 04:18 Lymph % (Auto) 12.4 % (21.0-51.0) L 05/28/19 04:18 [place] % (Auto) 7.6 % (0.0-13.0) 05/28/19 04:18 Eos % (Auto) 2.4 % (0.9-2.9) 05/28/19 04:18 Baso % (Auto) 0.5 % (0.2-1.0) 05/28/19 04:18 Neut # (Auto) 6.5 x10^3/uL (2.2-4.8) H 05/28/19 04:18 Lymph # (Auto) 1.0 X10^3/uL (1.3-2.9) L 05/28/19 04:18 [place] # (Auto) 0.6 x10^3/uL (0.3-0.8) 05/28/19 04:18 Eos # (Auto) 0.2 x10^3/uL (0.0-0.2) 05/28/19 04:18 Baso # (Auto) 0.0 X10^3/uL (0.0-0.1) 05/28/19 04:18 Absolute Nucleated RBC 0.0 /100WBC 05/28/19 04:18 Sodium 137 mmol/L (136-145) 05/28/19 04:18 Corrected Sodium 138 mmol/L (136-145) 05/28/19 04:18 Potassium 3.5 mmol/L (3.5-5.1) 05/28/19 04:18 Chloride 101 mmol/L (98-107) 05/28/19 04:18 Carbon Dioxide 26.9 mmol/L (21-32) 05/28/19 04:18 BUN 9 mg/dL (7-18) 05/28/19 04:18 Creatinine 0.34 mg/dL (0.55-1.02) L 05/28/19 08:40 Est GFR (MDRD) Af Amer > 60 (>60) 05/28/19 04:18 Est GFR (MDRD) Non-Af > 60 (>60) 05/28/19 04:18 Glucose 138 mg/dL (65-99) H 05/28/19 04:18 POC Glucose (mg/dL) 152 mg/dL (65-99) H 05/28/19 05:24 Calcium 8.1 mg/dL (8.5-10.1) L 05/28/19 04:18 Corrected Calcium 9.6 mg/dL (8.5-10.1) 05/28/19 04:18 Phosphorus 0.6 mg/dL (2.6-4.7) L 05/28/19 04:18 Magnesium 1.7 mg/dL (1.7-2.9) 05/28/19 04:18 Total Bilirubin 0.10 mg/dL (0.2-1.0) L 05/28/19 04:18 AST 16 Units/L (15-37) 05/28/19 04:18 ALT 15 Units/L (12-78) 05/28/19 04:18 Alkaline Phosphatase 128 Units/L (46-116) H 05/28/19 04:18 Total Protein 6.3 g/dL (6.4-8.2) L 05/28/19 04:18 Albumin 2.1 g/dL (3.4-5.0) L 05/28/19 04:18 Globulin 4.2 g/dL (2.5-4.5) 05/28/19 04:18 Albumin/Globulin Ratio 0.5 Ratio (1.1-2.1) L 05/28/19 04:18 Prealbumin 16.9 mg/dL (18-35.7) L 05/28/19 04:18 Triglycerides 130 mg/dL (0-150) 05/28/19 04:18 Amylase 74 Units/L (25-115) 05/21/19 14:42 Lipase 110 Units/L (73-393) 05/21/19 14:42 Specimen Type Catherized urine 05/24/19 11:30 Urine Color Yellow (YELLOW) 05/24/19 11:30 Urine Appearance Hazy (CLEAR) 05/24/19 11:30 Urine pH 6.0 (5.0 - 8.0) 05/24/19 11:30 Ur Specific [place] 1.020 (1.000-1.030) 05/24/19 11:30 Urine Protein 1+ (NEGATIVE) 05/24/19 11:30 Urine Glucose (UA) 1+ (NEGATIVE) 05/24/19 11:30 Urine Ketones Negative (NEGATIVE) 05/24/19 11:30 Urine Occult Blood 1+ (NEGATIVE) 05/24/19 11:30 Urine Nitrite Negative (NEGATIVE) 05/24/19 11:30 Urine Bilirubin Negative (NEGATIVE) 05/24/19 11:30 Urine Urobilinogen Normal (NORMAL) 05/24/19 11:30 Ur Leukocyte Esterase Negative (NEGATIVE) 05/24/19 11:30 Urine RBC 0-2 /HPF (0-3) 05/24/19 11:30 Urine WBC None seen /HPF (0-5) 05/24/19 11:30 Ur Squamous Epith Cells Negative /HPF (NEGATIVE) 05/24/19 11:30 Amorphous Sediment 1+ /HPF (NEGATIVE) 05/24/19 11:30 Urine Bacteria Trace /HPF (NEGATIVE) 05/24/19 11:30 Ur Culture Indicated? No/not indicated 05/24/19 11:30 Vancomycin Trough 10.2 ug/mL (15-20) L 05/28/19 08:40 Cytology Specimen To follow 05/22/19 14:25 Tissue Pathology To follow 05/22/19 14:19 - Assessment and Plan 1: PO laparotomy , lysis of adhesions . Gastro-Jejunostomy. diverting colostomy . same TPN ,OOB and PO care . full liquid diet . - Problem Patient Problems: Patient Problems Pelvic abscess (Acute) Malnutrition (Acute) E46 Status post colostomy (Acute) Z93.3
[2019-05-28] MEDS: VANCOMYCIN HCL 750 MG in D5W 250 ML IV 250 ML IV SCH ×2 (11:30→20:16)
[2019-05-28] MEDS ORDERED: ZOFRAN INJ 4 MG VIAL ONE (12:09)
[2019-05-28] MEDS: LOVENOX INJ 40 MG SYR SC SCH (13:58)
[2019-05-28] MEDS: CYMBALTA PO SCH (15:02)
[2019-05-28] MEDS: K-RIDER 10 MEQ/NS 100 ML 10 MEQ/100 ML BAG IV PRN ×2 (16:26→17:33)
[2019-05-28] MEDS: PEPCID 20 MG IV PREMIX* 10 MG/25 ML BAG IV PRN (20:15)
--- NOTE | 2019-05-28 21:01 | PCM.PROG ---
Progress Note - Progress Note for Day of Date of Exam: 05/28/19 - Subjective Subjective: WAS ADMITTED FOR TREATMENT OF MALNUTRITION, PELVIC ABSCESS, ABDOMINAL PAIN, AND N/V. SHE IS DAY 4 STATUS POST EXPLORATORY LAP, LYSIS OF EXTENSIVE ADHESIONS, GASTRO JEJUNOSTOMY, AND COMPLETE DIVERTING COLOSTOMY. TODAY, SHE IS ALERT AND ORIENTED, LYING IN BED ON MORNING ROUNDS. SHE CONTINUES WITH COMPLAINTS OF MILD ABDOMINAL PAIN, BUT REPORTS SLIGHT IMPROVEMENT IN SYMPTOMS. NG TUBE HAS BEEN REMOVED. ON EXAMINATION, HEART IS REGULAR IN RATE AND RHYTHM. BILATERAL LUNGS ARE NOTED WITH DIMINISHED LUNG SOUNDS THROUGHOUT. ABDOMEN IS FLAT, SOFT, AND NOTED WITH DIFFUSE TENDERNESS. DRESSING NOTED TO ABDOMEN. HYPOACTIVE BOWEL SOUNDS ARE NOTED IN ALL QUARANTS. THERE IS A COLOSTOMY NOTED. NO STOOL PRESENT IN BAG AT THIS TIME. HER VITALS THIS MORNING ARE: 99.6-88-20-99%-127/65. LABS WERE OBTAINED. ABNORMAL LAB VALUES INCLUDE THE FOLLOWING: RBC 3.33, HGB 10.5, HCT 30.3, CREATININE 0.41, GLUCOSE 138, CALCIUM 8.1, TOTAL BILI 0.10, ALK PHOS 128, TOTAL PROTEIN 6.3, ALBUMIN 2.1, PREALBUMIN 16.9. SHE IS CURRENTLY RECEIVING: TPN, INVANZ 1G IV DAILY, VANCOMYCIN 500MG IV DAILY, IV PEPCID, IV PROTONIX, ZOFRAN 4MG IV Q8H PRN, DEMEROL 25MG IV Q6H PRN, FLAGYL IV, AND HOME MEDICATIONS WERE RESUMED. SHE IS ON A FULL LIQUID DIET. WE WILL CONTINUE WITH CURRENT PLAN OF CARE TODAY. PHYSICAL THERAPY WILL WORK WITH PATIENT. OTHERWISE, WE PLAN TO FOLLOW UP WITH AM LABS AND CONTINUE TO MONITOR. - Past Medical Family Social History Past Med/Fam/Surg Hx: No changes since H&P Allergies: Allergies lorazepam [From Ativan] Allergy (Verified 05/22/19 06:02) morphine Allergy (Verified 05/21/19 12:02) Penicillins Allergy (Verified 05/21/19 12:02) - Review of Systems ROS: No change since H&P - Vital Signs and I&O's Vital Signs: Temperature 98.1 F Pulse Rate [Apical] 87 Pulse Rate [Left Brachial] 77 Pulse Rate 92 Respiratory Rate 26 Blood Pressure [Left Arm] 117/62 Blood Pressure [Right Arm] 124/58 Blood Pressure 115/55 O2 Sat by Pulse Oximetry 99 Intake and Output: Intake & Output 05/26/19 05/27/19 05/28/19 05/29/19 11:59 11:59 11:59 11:59 Intake Total 3633 / 3633 3638 / 3638 3704 / 3704 2400 / 2400 Output Total 2193 / 2193 3295 / 3295 3930 / 3930 3060 / 3060 Balance 1440 / 1440 343 / 343 -226 / -226 -660 / -660 - Physical Exam Oriented: Normal Eyes: Normal Ear: Right (RIGHT EAR PAIN ) Nose: Normal Throat: Normal Respiratory: Generalized, Diminished Cardiovascular: Normal : Normal Auscultation: Bowel Sounds: Normal Palpation: Normal Tenderness: Diffuse (soft with diffuse tenderness . BS hypoactive .), Mild. negative: Rebound, Guarding, Rigidity Skin: Normal Musculoskeletal: Normal Psychiatric: Normal Mood Description: Calm Affect: Normal Speech Pattern: Clear, Appropriate - Laboratory and Diagnostics Result Diagrams: 05/28/19 04:18 05/28/19 08:40 Labs: Laboratory WBC 8.4 X10^3/uL (3.6-10.0) 05/28/19 04:18 RBC 3.33 X10^6/uL (3.5-5.4) L 05/28/19 04:18 Hgb 10.5 g/dL (12.0-16.0) L 05/28/19 04:18 Hct 30.3 % (36.0-47.0) L 05/28/19 04:18 MCV 91.2 fL (80.0-100.0) 05/28/19 04:18 MCH 31.7 pg (27.0-34.0) 05/28/19 04:18 MCHC 34.7 g/dL (33.0-35.0) 05/28/19 04:18 RDW 17.5 % (11.6-16.5) H 05/28/19 04:18 Plt Count 311 X10^3/uL (150.0-450.0) 05/28/19 04:18 MPV 7.0 fL (7.4-11.0) L 05/28/19 04:18 Neut % (Auto) 77.1 % (42.0-75.0) H 05/28/19 04:18 Lymph % (Auto) 12.4 % (21.0-51.0) L 05/28/19 04:18 [place] % (Auto) 7.6 % (0.0-13.0) 05/28/19 04:18 Eos % (Auto) 2.4 % (0.9-2.9) 05/28/19 04:18 Baso % (Auto) 0.5 % (0.2-1.0) 05/28/19 04:18 Neut # (Auto) 6.5 x10^3/uL (2.2-4.8) H 05/28/19 04:18 Lymph # (Auto) 1.0 X10^3/uL (1.3-2.9) L 05/28/19 04:18 [place] # (Auto) 0.6 x10^3/uL (0.3-0.8) 05/28/19 04:18 Eos # (Auto) 0.2 x10^3/uL (0.0-0.2) 05/28/19 04:18 Baso # (Auto) 0.0 X10^3/uL (0.0-0.1) 05/28/19 04:18 Absolute Nucleated RBC 0.0 /100WBC 05/28/19 04:18 Sodium 137 mmol/L (136-145) 05/28/19 04:18 Corrected Sodium 138 mmol/L (136-145) 05/28/19 04:18 Potassium 3.5 mmol/L (3.5-5.1) 05/28/19 04:18 Chloride 101 mmol/L (98-107) 05/28/19 04:18 Carbon Dioxide 26.9 mmol/L (21-32) 05/28/19 04:18 BUN 9 mg/dL (7-18) 05/28/19 04:18 Creatinine 0.34 mg/dL (0.55-1.02) L 05/28/19 08:40 Est GFR (MDRD) Af Amer > 60 (>60) 05/28/19 04:18 Est GFR (MDRD) Non-Af > 60 (>60) 05/28/19 04:18 Glucose 138 mg/dL (65-99) H 05/28/19 04:18 POC Glucose (mg/dL) 137 mg/dL (65-99) H 05/28/19 20:01 Calcium 8.1 mg/dL (8.5-10.1) L 05/28/19 04:18 Corrected Calcium 9.6 mg/dL (8.5-10.1) 05/28/19 04:18 Phosphorus 0.6 mg/dL (2.6-4.7) L 05/28/19 04:18 Magnesium 1.7 mg/dL (1.7-2.9) 05/28/19 04:18 Total Bilirubin 0.10 mg/dL (0.2-1.0) L 05/28/19 04:18 AST 16 Units/L (15-37) 05/28/19 04:18 ALT 15 Units/L (12-78) 05/28/19 04:18 Alkaline Phosphatase 128 Units/L (46-116) H 05/28/19 04:18 Total Protein 6.3 g/dL (6.4-8.2) L 05/28/19 04:18 Albumin 2.1 g/dL (3.4-5.0) L 05/28/19 04:18 Globulin 4.2 g/dL (2.5-4.5) 05/28/19 04:18 Albumin/Globulin Ratio 0.5 Ratio (1.1-2.1) L 05/28/19 04:18 Prealbumin 16.9 mg/dL (18-35.7) L 05/28/19 04:18 Triglycerides 130 mg/dL (0-150) 05/28/19 04:18 Amylase 74 Units/L (25-115) 05/21/19 14:42 Lipase 110 Units/L (73-393) 05/21/19 14:42 Specimen Type Catherized urine 05/24/19 11:30 Urine Color Yellow (YELLOW) 05/24/19 11:30 Urine Appearance Hazy (CLEAR) 05/24/19 11:30 Urine pH 6.0 (5.0 - 8.0) 05/24/19 11:30 Ur Specific [place] 1.020 (1.000-1.030) 05/24/19 11:30 Urine Protein 1+ (NEGATIVE) 05/24/19 11:30 Urine Glucose (UA) 1+ (NEGATIVE) 05/24/19 11:30 Urine Ketones Negative (NEGATIVE) 05/24/19 11:30 Urine Occult Blood 1+ (NEGATIVE) 05/24/19 11:30 Urine Nitrite Negative (NEGATIVE) 05/24/19 11:30 Urine Bilirubin Negative (NEGATIVE) 05/24/19 11:30 Urine Urobilinogen Normal (NORMAL) 05/24/19 11:30 Ur Leukocyte Esterase Negative (NEGATIVE) 05/24/19 11:30 Urine RBC 0-2 /HPF (0-3) 05/24/19 11:30 Urine WBC None seen /HPF (0-5) 05/24/19 11:30 Ur Squamous Epith Cells Negative /HPF (NEGATIVE) 05/24/19 11:30 Amorphous Sediment 1+ /HPF (NEGATIVE) 05/24/19 11:30 Urine Bacteria Trace /HPF (NEGATIVE) 05/24/19 11:30 Ur Culture Indicated? No/not indicated 05/24/19 11:30 Vancomycin Trough 10.2 ug/mL (15-20) L 05/28/19 08:40 Cytology Specimen To follow 05/22/19 14:25 Tissue Pathology To follow 05/22/19 14:19 - Plan (1) Pelvic abscess Status: Acute Plan: INVANZ 1G IV DAILY, VANCOMYCIN 500MG IV DAILY, IV PEPCID, ZOFRAN 4MG IV Q8H PRN, NORCO PRN, DEMEROL 25MG IV Q6H PRN, AND HOME MEDICATIONS WERE RESUMED (2) Abdominal pain Status: Acute Qualifiers: Abdominal location: lower abdomen, unspecified Qualified Code(s): R10.30 - Lower abdominal pain, unspecified (3) Status post colostomy Status: Acute Plan: COLOSTOMY CARE AND TEACHING, CONTINUE TO MONITOR (4) Nausea & vomiting Status: Acute Qualifiers: Vomiting type: unspecified Vomiting Intractability: non-intractable Qualified Code(s): R11.2 - Nausea with vomiting, unspecified Plan: ZOFRAN 4MG IV Q8H PRN, CONTINUE TO MONITOR (5) Malnutrition Status: Acute Qualifiers: Malnutrition type: protein-calorie malnutrition Protein-calorie malnutrition severity: unspecified severity Qualified Code(s): E46 - Unspecified protein-calorie malnutrition Plan: TPN, CONTINUE TO MONITOR
[2019-05-29] MEDS: ZOFRAN INJ 4 MG VIAL IVP PRN ×5 (01:35→20:27)
[2019-05-29] MEDS: D5 1/2 NS 1000 ML 1,000 ML IV SCH ×3 (02:38→20:29)
[2019-05-29] MEDS: NORCO 5/325 MG TAB PO PRN ×3 (04:08→17:03)
[2019-05-29 05:12] LABS: BASOPHILS # (AUTO) 0.1 X10^3/uL (0.0-0.1); BASOPHILS % (AUTO) 0.5 % (0.2-1.0); EOSINOPHILS # (AUTO) 0.3 x10^3/uL (0.0-0.2); EOSINOPHILS % (AUTO) 2.4 % (0.9-2.9); HEMOGLOBIN 10.5 g/dL (12.0-16.0); LYMPHOCYTES # (AUTO) 1.3 X10^3/uL (1.3-2.9); LYMPHOCYTES % (AUTO) 11.8 % (21.0-51.0); MEAN CORPUSCULAR HGB CONC 33.7 g/dL (33.0-35.0); MEAN CORPUSCULAR VOLUME 91.8 fL (80.0-100.0); MEAN PLATELET VOLUME 6.8 fL (7.4-11.0); MONOCYTES # (AUTO) 0.9 x10^3/uL (0.3-0.8); MONOCYTES % (AUTO) 8.4 % (0.0-13.0); NEUTROPHILS # (AUTO) 8.6 x10^3/uL (2.2-4.8); NEUTROPHILS % (AUTO) 76.9 % (42.0-75.0); PLATELET COUNT 343 X10^3/uL (150.0-450.0); RED BLOOD COUNT 3.38 X10^6/uL (3.5-5.4); RED CELL DISTRIBUTION WIDTH 17.7 % (11.6-16.5); WHITE BLOOD COUNT 11.2 X10^3/uL (3.6-10.0)
[2019-05-29 05:13] LABS: PREALBUMIN 19.1 mg/dL (18-35.7)
[2019-05-29 05:27] LABS: ALANINE AMINOTRANSFERASE 14 Units/L (12-78); ALBUMIN 2.1 g/dL (3.4-5.0); ALKALINE PHOSPHATASE 122 Units/L (46-116); ASPARTATE AMINO TRANSFERASE 15 Units/L (15-37); BLOOD UREA NITROGEN 11 mg/dL (7-18); CALCIUM 8.2 mg/dL (8.5-10.1); CARBON DIOXIDE 26.3 mmol/L (21-32); CHLORIDE 98 mmol/L (98-107); COR CA(FOR HYPOALB) 9.7 mg/dL (8.5-10.1); COR NA(FOR HYPERGLY) 132 mmol/L (136-145); CREATININE 0.41 mg/dL (0.55-1.02); MAGNESIUM 1.4 mg/dL (1.7-2.9); PHOSPHORUS 0.8 mg/dL (2.6-4.7); SODIUM 131 mmol/L (136-145); TOTAL PROTEIN 6.3 g/dL (6.4-8.2); TRIGLYCERIDES 106 mg/dL (0-150); eGFR NON BLACK RACES > 60 (>60)
[2019-05-29] MEDS: DEMEROL INJ IVP PRN ×2 (05:58→21:42)
[2019-05-29] MEDS: MAGNESIUM SULFATE 1 GRAM/100 mL PREMIX 1 GM/100 ML BAG IV PRN ×4 (06:30→14:37)
[2019-05-29] MEDS: INVANZ INJ 1 GM VIAL 1 GM in NS 100 ML IV + SPIKE MINIBAG* 100 ML IV SCH ×2 (08:50→10:16)
[2019-05-29] MEDS: FLAGYL IV PREMIX 500 MG BAG 500 MG/100 ML BAG IV SCH ×2 (08:51→20:25)
[2019-05-29] MEDS ORDERED: QUELICIN (OR ANECTINE) ONE (08:53)
[2019-05-29] MEDS: PROTONIX INJ 40 MG VIAL IVP SCH (08:53)
[2019-05-29] MEDS: CYMBALTA PO SCH (08:54)
[2019-05-29] MEDS: FOLIC ACID TAB 1 MG PO SCH (08:54)
[2019-05-29] MEDS: NADOLOL 10 MG PO SCH (09:19)
[2019-05-29] MEDS: VANCOMYCIN HCL 750 MG in D5W 250 ML IV 250 ML IV SCH ×2 (11:27→20:30)
[2019-05-29] MEDS: LOVENOX INJ 40 MG SYR SC SCH (11:29)
[2019-05-29] MEDS: CLINIMIX 5 %/20 % 1,000 ML with MVI INJ (ADULT) 10 ML, TRACE ELEMENTS INJ 10 ML, TPN EL... IV SCH ×10 (14:44→20:23)
--- NOTE | 2019-05-29 16:10 | DR.PROGNOT ---
Hospital Progress Notes - Progress Note for Day of: Progress Note Date: 05/29/19 - Chief Complaint Chief Complaint: PO day 5. occasional confusion and disorientation . c/o vomitinged small amount of bile this am . only mild abdominal pain. colostomy is not functioning yet . mild low grade fever . - Past Medical Family Social History Past Med/Fam/Surg Hx: No changes since H&P Allergies: Allergies lorazepam [From Ativan] Allergy (Verified 05/22/19 06:02) morphine Allergy (Verified 05/21/19 12:02) Penicillins Allergy (Verified 05/21/19 12:02) - Review Of Systems ROS: No change since H&P - Vital Signs Vital Signs: Temperature 98.0 F Pulse Rate [Apical] 82 Pulse Rate [Left Brachial] 77 Pulse Rate 92 Respiratory Rate 20 Blood Pressure [Left Arm] 108/56 Blood Pressure [Right Arm] 124/58 Blood Pressure 115/55 O2 Sat by Pulse Oximetry 100 - Physical Exam Oriented: Normal Eyes: Normal Ear: Right (RIGHT EAR PAIN ) Nose: Normal Throat: Normal Respiratory: Generalized, Diminished Cardiovascular: Normal : Normal GI:Auscultation: Normal GI:Palpation: Normal GI: Tenderness: Diffuse (soft with diffuse tenderness . BS hypo active .), Mild. negative: Rebound, Guarding, Rigidity Skin: Normal Musculoskeletal: Normal Psychiatric: Normal Mood Description: Calm Affect: Normal Speech Pattern: Clear, Appropriate - Laboratory and Diagnostics Result Diagrams: 05/29/19 04:08 05/29/19 04:08 Labs: Laboratory WBC 11.2 X10^3/uL (3.6-10.0) H 05/29/19 04:08 RBC 3.38 X10^6/uL (3.5-5.4) L 05/29/19 04:08 Hgb 10.5 g/dL (12.0-16.0) L 05/29/19 04:08 Hct 31.0 % (36.0-47.0) L 05/29/19 04:08 MCV 91.8 fL (80.0-100.0) 05/29/19 04:08 MCH 31.0 pg (27.0-34.0) 05/29/19 04:08 MCHC 33.7 g/dL (33.0-35.0) 05/29/19 04:08 RDW 17.7 % (11.6-16.5) H 05/29/19 04:08 Plt Count 343 X10^3/uL (150.0-450.0) 05/29/19 04:08 MPV 6.8 fL (7.4-11.0) L 05/29/19 04:08 Neut % (Auto) 76.9 % (42.0-75.0) H 05/29/19 04:08 Lymph % (Auto) 11.8 % (21.0-51.0) L 05/29/19 04:08 [place] % (Auto) 8.4 % (0.0-13.0) 05/29/19 04:08 Eos % (Auto) 2.4 % (0.9-2.9) 05/29/19 04:08 Baso % (Auto) 0.5 % (0.2-1.0) 05/29/19 04:08 Neut # (Auto) 8.6 x10^3/uL (2.2-4.8) H 05/29/19 04:08 Lymph # (Auto) 1.3 X10^3/uL (1.3-2.9) 05/29/19 04:08 [place] # (Auto) 0.9 x10^3/uL (0.3-0.8) H 05/29/19 04:08 Eos # (Auto) 0.3 x10^3/uL (0.0-0.2) H 05/29/19 04:08 Baso # (Auto) 0.1 X10^3/uL (0.0-0.1) 05/29/19 04:08 Absolute Nucleated RBC 0.0 /100WBC 05/29/19 04:08 Sodium 131 mmol/L (136-145) L 05/29/19 04:08 Corrected Sodium 132 mmol/L (136-145) L 05/29/19 04:08 Potassium 3.5 mmol/L (3.5-5.1) 05/29/19 04:08 Chloride 98 mmol/L (98-107) 05/29/19 04:08 Carbon Dioxide 26.3 mmol/L (21-32) 05/29/19 04:08 BUN 11 mg/dL (7-18) 05/29/19 04:08 Creatinine 0.41 mg/dL (0.55-1.02) L 05/29/19 04:08 Est GFR (MDRD) Af Amer > 60 (>60) 05/29/19 04:08 Est GFR (MDRD) Non-Af > 60 (>60) 05/29/19 04:08 Glucose 128 mg/dL (65-99) H 05/29/19 04:08 POC Glucose (mg/dL) 122 mg/dL (65-99) H 05/29/19 14:38 Calcium 8.2 mg/dL (8.5-10.1) L 05/29/19 04:08 Corrected Calcium 9.7 mg/dL (8.5-10.1) 05/29/19 04:08 Phosphorus 0.8 mg/dL (2.6-4.7) L 05/29/19 04:08 Magnesium 1.4 mg/dL (1.7-2.9) L 05/29/19 04:08 Total Bilirubin 0.10 mg/dL (0.2-1.0) L 05/29/19 04:08 AST 15 Units/L (15-37) 05/29/19 04:08 ALT 14 Units/L (12-78) 05/29/19 04:08 Alkaline Phosphatase 122 Units/L (46-116) H 05/29/19 04:08 Total Protein 6.3 g/dL (6.4-8.2) L 05/29/19 04:08 Albumin 2.1 g/dL (3.4-5.0) L 05/29/19 04:08 Globulin 4.2 g/dL (2.5-4.5) 05/29/19 04:08 Albumin/Globulin Ratio 0.5 Ratio (1.1-2.1) L 05/29/19 04:08 Prealbumin 19.1 mg/dL (18-35.7) 05/29/19 04:08 Triglycerides 106 mg/dL (0-150) 05/29/19 04:08 Amylase 74 Units/L (25-115) 05/21/19 14:42 Lipase 110 Units/L (73-393) 05/21/19 14:42 Specimen Type Catherized urine 05/24/19 11:30 Urine Color Yellow (YELLOW) 05/24/19 11:30 Urine Appearance Hazy (CLEAR) 05/24/19 11:30 Urine pH 6.0 (5.0 - 8.0) 05/24/19 11:30 Ur Specific [place] 1.020 (1.000-1.030) 05/24/19 11:30 Urine Protein 1+ (NEGATIVE) 05/24/19 11:30 Urine Glucose (UA) 1+ (NEGATIVE) 05/24/19 11:30 Urine Ketones Negative (NEGATIVE) 05/24/19 11:30 Urine Occult Blood 1+ (NEGATIVE) 05/24/19 11:30 Urine Nitrite Negative (NEGATIVE) 05/24/19 11:30 Urine Bilirubin Negative (NEGATIVE) 05/24/19 11:30 Urine Urobilinogen Normal (NORMAL) 05/24/19 11:30 Ur Leukocyte Esterase Negative (NEGATIVE) 05/24/19 11:30 Urine RBC 0-2 /HPF (0-3) 05/24/19 11:30 Urine WBC None seen /HPF (0-5) 05/24/19 11:30 Ur Squamous Epith Cells Negative /HPF (NEGATIVE) 05/24/19 11:30 Amorphous Sediment 1+ /HPF (NEGATIVE) 05/24/19 11:30 Urine Bacteria Trace /HPF (NEGATIVE) 05/24/19 11:30 Ur Culture Indicated? No/not indicated 05/24/19 11:30 Vancomycin Trough 10.2 ug/mL (15-20) L 05/28/19 08:40 Cytology Specimen To follow 05/22/19 14:25 Tissue Pathology To follow 05/22/19 14:19 - Assessment and Plan 1: PO laparotomy , lysis of adhesions . Gastro-Jejunostomy. diverting colostomy . same TPN ,OOB and PO care . to adnance to soft diet as tolerated . - Problem Patient Problems: Patient Problems Pelvic abscess (Acute) Malnutrition (Acute) E46 Status post colostomy (Acute) Z93.3
--- NOTE | 2019-05-29 20:09 | PCM.PROG ---
Progress Note - Progress Note for Day of Date of Exam: 05/29/19 - Subjective Subjective: WAS ADMITTED FOR TREATMENT OF MALNUTRITION, PELVIC ABSCESS, ABDOMINAL PAIN, AND N/V. SHE IS DAY 4 STATUS POST EXPLORATORY LAP, LYSIS OF EXTENSIVE ADHESIONS, GASTRO JEJUNOSTOMY, AND COMPLETE DIVERTING COLOSTOMY. TODAY, SHE IS ALERT AND ORIENTED, LYING IN BED ON MORNING ROUNDS. SHE CONTINUES WITH COMPLAINTS OF MILD ABDOMINAL PAIN, BUT REPORTS SLIGHT IMPROVEMENT IN SYMPTOMS. NG TUBE HAS BEEN REMOVED. ON EXAMINATION, HEART IS REGULAR IN RATE AND RHYTHM. BILATERAL LUNGS ARE NOTED WITH DIMINISHED LUNG SOUNDS THROUGHOUT. ABDOMEN IS FLAT, SOFT, AND NOTED WITH DIFFUSE TENDERNESS. DRESSING NOTED TO ABDOMEN. HYPOACTIVE BOWEL SOUNDS ARE NOTED IN ALL QUARANTS. THERE IS A COLOSTOMY NOTED. NO STOOL PRESENT IN BAG AT THIS TIME. HER VITALS THIS MORNING ARE: 99.6-88-20-99%-127/65. LABS WERE OBTAINED. ABNORMAL LAB VALUES INCLUDE THE FOLLOWING: RBC 3.33, HGB 10.5, HCT 30.3, CREATININE 0.41, GLUCOSE 138, CALCIUM 8.1, TOTAL BILI 0.10, ALK PHOS 128, TOTAL PROTEIN 6.3, ALBUMIN 2.1, PREALBUMIN 16.9. SHE IS CURRENTLY RECEIVING: TPN, INVANZ 1G IV DAILY, VANCOMYCIN 500MG IV DAILY, IV PEPCID, IV PROTONIX, ZOFRAN 4MG IV Q8H PRN, DEMEROL 25MG IV Q6H PRN, FLAGYL IV, AND HOME MEDICATIONS WERE RESUMED. SHE IS ON A FULL LIQUID DIET. WE WILL CONTINUE WITH CURRENT PLAN OF CARE TODAY. PHYSICAL THERAPY WILL WORK WITH PATIENT. OTHERWISE, WE PLAN TO FOLLOW UP WITH AM LABS AND CONTINUE TO MONITOR. - Past Medical Family Social History Past Med/Fam/Surg Hx: No changes since H&P Allergies: Allergies lorazepam [From Ativan] Allergy (Verified 05/22/19 06:02) morphine Allergy (Verified 05/21/19 12:02) Penicillins Allergy (Verified 05/21/19 12:02) - Review of Systems ROS: No change since H&P - Vital Signs and I&O's Vital Signs: Temperature 98.3 F Pulse Rate [Apical] 81 Pulse Rate [Left Brachial] 77 Pulse Rate 92 Respiratory Rate 24 Blood Pressure [Left Arm] 113/57 Blood Pressure [Right Arm] 124/58 Blood Pressure 115/55 O2 Sat by Pulse Oximetry 96 Intake and Output: Intake & Output 05/27/19 05/28/19 05/29/19 05/30/19 11:59 11:59 11:59 11:59 Intake Total 3638 / 3638 3704 / 3704 5296 / 5296 1968 Output Total 3295 / 3295 3930 / 3930 4365 / 4365 2605 / 2605 Balance 343 / 343 -226 / -226 931 / 931 -636 / -636 - Physical Exam Oriented: Normal Eyes: Normal Ear: Right (RIGHT EAR PAIN ) Nose: Normal Throat: Normal Respiratory: Generalized, Diminished Cardiovascular: Normal : Normal Auscultation: Bowel Sounds: Decreased Palpation: Normal Tenderness: Diffuse (soft with diffuse tenderness . BS hypo active .), Mild. negative: Rebound, Guarding, Rigidity Skin: Normal Musculoskeletal: Normal Psychiatric: Normal Mood Description: Calm Affect: Normal Speech Pattern: Clear, Appropriate - Laboratory and Diagnostics Result Diagrams: 05/29/19 04:08 05/29/19 04:08 Labs: Laboratory WBC 11.2 X10^3/uL (3.6-10.0) H 05/29/19 04:08 RBC 3.38 X10^6/uL (3.5-5.4) L 05/29/19 04:08 Hgb 10.5 g/dL (12.0-16.0) L 05/29/19 04:08 Hct 31.0 % (36.0-47.0) L 05/29/19 04:08 MCV 91.8 fL (80.0-100.0) 05/29/19 04:08 MCH 31.0 pg (27.0-34.0) 05/29/19 04:08 MCHC 33.7 g/dL (33.0-35.0) 05/29/19 04:08 RDW 17.7 % (11.6-16.5) H 05/29/19 04:08 Plt Count 343 X10^3/uL (150.0-450.0) 05/29/19 04:08 MPV 6.8 fL (7.4-11.0) L 05/29/19 04:08 Neut % (Auto) 76.9 % (42.0-75.0) H 05/29/19 04:08 Lymph % (Auto) 11.8 % (21.0-51.0) L 05/29/19 04:08 [place] % (Auto) 8.4 % (0.0-13.0) 05/29/19 04:08 Eos % (Auto) 2.4 % (0.9-2.9) 05/29/19 04:08 Baso % (Auto) 0.5 % (0.2-1.0) 05/29/19 04:08 Neut # (Auto) 8.6 x10^3/uL (2.2-4.8) H 05/29/19 04:08 Lymph # (Auto) 1.3 X10^3/uL (1.3-2.9) 05/29/19 04:08 [place] # (Auto) 0.9 x10^3/uL (0.3-0.8) H 05/29/19 04:08 Eos # (Auto) 0.3 x10^3/uL (0.0-0.2) H 05/29/19 04:08 Baso # (Auto) 0.1 X10^3/uL (0.0-0.1) 05/29/19 04:08 Absolute Nucleated RBC 0.0 /100WBC 05/29/19 04:08 Sodium 131 mmol/L (136-145) L 05/29/19 04:08 Corrected Sodium 132 mmol/L (136-145) L 05/29/19 04:08 Potassium 3.5 mmol/L (3.5-5.1) 05/29/19 04:08 Chloride 98 mmol/L (98-107) 05/29/19 04:08 Carbon Dioxide 26.3 mmol/L (21-32) 05/29/19 04:08 BUN 11 mg/dL (7-18) 05/29/19 04:08 Creatinine 0.41 mg/dL (0.55-1.02) L 05/29/19 04:08 Est GFR (MDRD) Af Amer > 60 (>60) 05/29/19 04:08 Est GFR (MDRD) Non-Af > 60 (>60) 05/29/19 04:08 Glucose 128 mg/dL (65-99) H 05/29/19 04:08 POC Glucose (mg/dL) 118 mg/dL (65-99) H 05/29/19 20:06 Calcium 8.2 mg/dL (8.5-10.1) L 05/29/19 04:08 Corrected Calcium 9.7 mg/dL (8.5-10.1) 05/29/19 04:08 Phosphorus 0.8 mg/dL (2.6-4.7) L 05/29/19 04:08 Magnesium 1.4 mg/dL (1.7-2.9) L 05/29/19 04:08 Total Bilirubin 0.10 mg/dL (0.2-1.0) L 05/29/19 04:08 AST 15 Units/L (15-37) 05/29/19 04:08 ALT 14 Units/L (12-78) 05/29/19 04:08 Alkaline Phosphatase 122 Units/L (46-116) H 05/29/19 04:08 Total Protein 6.3 g/dL (6.4-8.2) L 05/29/19 04:08 Albumin 2.1 g/dL (3.4-5.0) L 05/29/19 04:08 Globulin 4.2 g/dL (2.5-4.5) 05/29/19 04:08 Albumin/Globulin Ratio 0.5 Ratio (1.1-2.1) L 05/29/19 04:08 Prealbumin 19.1 mg/dL (18-35.7) 05/29/19 04:08 Triglycerides 106 mg/dL (0-150) 05/29/19 04:08 Amylase 74 Units/L (25-115) 05/21/19 14:42 Lipase 110 Units/L (73-393) 05/21/19 14:42 Specimen Type Catherized urine 05/24/19 11:30 Urine Color Yellow (YELLOW) 05/24/19 11:30 Urine Appearance Hazy (CLEAR) 05/24/19 11:30 Urine pH 6.0 (5.0 - 8.0) 05/24/19 11:30 Ur Specific [place] 1.020 (1.000-1.030) 05/24/19 11:30 Urine Protein 1+ (NEGATIVE) 05/24/19 11:30 Urine Glucose (UA) 1+ (NEGATIVE) 05/24/19 11:30 Urine Ketones Negative (NEGATIVE) 05/24/19 11:30 Urine Occult Blood 1+ (NEGATIVE) 05/24/19 11:30 Urine Nitrite Negative (NEGATIVE) 05/24/19 11:30 Urine Bilirubin Negative (NEGATIVE) 05/24/19 11:30 Urine Urobilinogen Normal (NORMAL) 05/24/19 11:30 Ur Leukocyte Esterase Negative (NEGATIVE) 05/24/19 11:30 Urine RBC 0-2 /HPF (0-3) 05/24/19 11:30 Urine WBC None seen /HPF (0-5) 05/24/19 11:30 Ur Squamous Epith Cells Negative /HPF (NEGATIVE) 05/24/19 11:30 Amorphous Sediment 1+ /HPF (NEGATIVE) 05/24/19 11:30 Urine Bacteria Trace /HPF (NEGATIVE) 05/24/19 11:30 Ur Culture Indicated? No/not indicated 05/24/19 11:30 Vancomycin Trough 10.2 ug/mL (15-20) L 05/28/19 08:40 Cytology Specimen To follow 05/22/19 14:25 Tissue Pathology To follow 05/22/19 14:19 - Plan (1) Pelvic abscess Status: Acute Plan: INVANZ 1G IV DAILY, VANCOMYCIN 500MG IV DAILY, IV PEPCID, ZOFRAN 4MG IV Q8H PRN, NORCO PRN, DEMEROL 25MG IV Q6H PRN, AND HOME MEDICATIONS WERE RESUMED (2) Abdominal pain Status: Acute Qualifiers: Abdominal location: lower abdomen, unspecified Qualified Code(s): R10.30 - Lower abdominal pain, unspecified (3) Status post colostomy Status: Acute Plan: COLOSTOMY CARE AND TEACHING, CONTINUE TO MONITOR (4) Nausea & vomiting Status: Acute Qualifiers: Vomiting type: unspecified Vomiting Intractability: non-intractable Qualified Code(s): R11.2 - Nausea with vomiting, unspecified Plan: ZOFRAN 4MG IV Q8H PRN, CONTINUE TO MONITOR (5) Malnutrition Status: Acute Qualifiers: Malnutrition type: protein-calorie malnutrition Protein-calorie malnutrition severity: unspecified severity Qualified Code(s): E46 - Unspecified protein-calorie malnutrition Plan: TPN, CONTINUE TO MONITOR
[2019-05-29] MEDS: PEPCID 20 MG IV PREMIX* 10 MG/25 ML BAG IV PRN (20:24)
[2019-05-29] MEDS: LIPOSYN III 20% 100ML 100 ML IV SCH (20:29)
[2019-05-30] MEDS: ZOFRAN INJ 4 MG VIAL IVP PRN ×4 (02:12→16:48)
[2019-05-30] MEDS: NORCO 5/325 MG TAB PO PRN ×3 (02:12→15:03)
[2019-05-30] MEDS: D5 1/2 NS 1000 ML 1,000 ML IV SCH ×3 (06:05→21:36)
[2019-05-30 06:14] LABS: BASOPHILS % (AUTO) 0.4 % (0.2-1.0); EOSINOPHILS # (AUTO) 0.3 x10^3/uL (0.0-0.2); EOSINOPHILS % (AUTO) 2.4 % (0.9-2.9); HEMATOCRIT 29.5 % (36.0-47.0); LYMPHOCYTES # (AUTO) 1.3 X10^3/uL (1.3-2.9); LYMPHOCYTES % (AUTO) 9.8 % (21.0-51.0); MEAN CORPUSCULAR HEMOGLOBIN 31.2 pg (27.0-34.0); MEAN CORPUSCULAR VOLUME 91.8 fL (80.0-100.0); MONOCYTES # (AUTO) 1.2 x10^3/uL (0.3-0.8); MONOCYTES % (AUTO) 9.2 % (0.0-13.0); NEUTROPHILS # (AUTO) 10.1 x10^3/uL (2.2-4.8); NEUTROPHILS % (AUTO) 78.2 % (42.0-75.0); PLATELET COUNT 339 X10^3/uL (150.0-450.0); RED BLOOD COUNT 3.21 X10^6/uL (3.5-5.4); RED CELL DISTRIBUTION WIDTH 17.3 % (11.6-16.5)
[2019-05-30 06:28] LABS: ALANINE AMINOTRANSFERASE 14 Units/L (12-78); ALKALINE PHOSPHATASE 129 Units/L (46-116); ASPARTATE AMINO TRANSFERASE 16 Units/L (15-37); BLOOD UREA NITROGEN 9 mg/dL (7-18); CALCIUM 7.9 mg/dL (8.5-10.1); CARBON DIOXIDE 26.7 mmol/L (21-32); CHLORIDE 97 mmol/L (98-107); COR CA(FOR HYPOALB) 9.5 mg/dL (8.5-10.1); COR NA(FOR HYPERGLY) 134 mmol/L (136-145); MAGNESIUM 1.7 mg/dL (1.7-2.9); SODIUM 133 mmol/L (136-145); TOTAL PROTEIN 6.2 g/dL (6.4-8.2); TRIGLYCERIDES 113 mg/dL (0-150); eGFR NON BLACK RACES > 60 (>60)
[2019-05-30] MEDS: K-RIDER 10 MEQ/NS 100 ML 10 MEQ/100 ML BAG IV PRN ×4 (07:25→17:05)
[2019-05-30 09:16] LABS: CREATININE 0.3 mg/dL (0.55-1.02)
[2019-05-30] MEDS: PROTONIX INJ 40 MG VIAL IVP SCH (09:16)
[2019-05-30] MEDS: FOLIC ACID TAB 1 MG PO SCH (09:16)
[2019-05-30] MEDS: INVANZ INJ 1 GM VIAL 1 GM in NS 100 ML IV + SPIKE MINIBAG* 100 ML IV SCH (09:16)
[2019-05-30] MEDS: NADOLOL 10 MG PO SCH (09:20)
[2019-05-30] MEDS: LOVENOX INJ 40 MG SYR SC SCH (09:28)
[2019-05-30] MEDS: CYMBALTA PO SCH (09:32)
[2019-05-30] MEDS: FLAGYL IV PREMIX 500 MG BAG 500 MG/100 ML BAG IV SCH ×2 (11:00→21:35)
[2019-05-30] MEDS: DEMEROL INJ IVP PRN ×2 (11:05→18:14)
[2019-05-30] MEDS: VANCOMYCIN HCL 750 MG in D5W 250 ML IV 250 ML IV SCH ×2 (12:21→21:27)
[2019-05-30] MEDS: DIFLUCAN 100 MG IV (MIX by PHARMACY)* 100 MG/50 ML BAG IV SCH (13:55)
--- NOTE | 2019-05-30 15:07 | DR.PROGNOT ---
Hospital Progress Notes - Progress Note for Day of: Progress Note Date: 05/30/19 - Chief Complaint Chief Complaint: no changes .still with occasional confusion and disorientation . vomited large amount of bile last night . only mild abdominal pain. colostomy is not functioning yet . ANUSHA was removed . gastric ulcer brushing was benign with positive candidiasis . - Past Medical Family Social History Past Med/Fam/Surg Hx: No changes since H&P Allergies: Allergies lorazepam [From Ativan] Allergy (Verified 05/22/19 06:02) morphine Allergy (Verified 05/21/19 12:02) Penicillins Allergy (Verified 05/21/19 12:02) - Review Of Systems ROS: No change since H&P - Vital Signs Vital Signs: Temperature 98.0 F Pulse Rate [Apical] 85 Pulse Rate [Left Brachial] 77 Pulse Rate 92 Respiratory Rate 16 Blood Pressure [Left Arm] 116/57 Blood Pressure [Right Arm] 124/58 Blood Pressure 115/55 O2 Sat by Pulse Oximetry 100 - Physical Exam Oriented: Normal Eyes: Normal Ear: Right (RIGHT EAR PAIN ) Nose: Normal Throat: Normal Respiratory: Generalized, Diminished Cardiovascular: Normal : Normal GI:Auscultation: Decreased GI:Palpation: Normal GI: Tenderness: Diffuse (soft with diffuse tenderness . BS hypo active .), Mild. negative: Rebound, Guarding, Rigidity Skin: Normal Musculoskeletal: Normal Psychiatric: Normal Mood Description: Calm Affect: Normal Speech Pattern: Clear, Appropriate - Laboratory and Diagnostics Result Diagrams: 05/30/19 04:23 05/30/19 08:21 Labs: Laboratory WBC 13.0 X10^3/uL (3.6-10.0) H 05/30/19 04:23 RBC 3.21 X10^6/uL (3.5-5.4) L 05/30/19 04:23 Hgb 10.0 g/dL (12.0-16.0) L 05/30/19 04:23 Hct 29.5 % (36.0-47.0) L 05/30/19 04:23 MCV 91.8 fL (80.0-100.0) 05/30/19 04:23 MCH 31.2 pg (27.0-34.0) 05/30/19 04:23 MCHC 34.0 g/dL (33.0-35.0) 05/30/19 04:23 RDW 17.3 % (11.6-16.5) H 05/30/19 04:23 Plt Count 339 X10^3/uL (150.0-450.0) 05/30/19 04:23 MPV 7.0 fL (7.4-11.0) L 05/30/19 04:23 Neut % (Auto) 78.2 % (42.0-75.0) H 05/30/19 04:23 Lymph % (Auto) 9.8 % (21.0-51.0) L 05/30/19 04:23 [place] % (Auto) 9.2 % (0.0-13.0) 05/30/19 04:23 Eos % (Auto) 2.4 % (0.9-2.9) 05/30/19 04:23 Baso % (Auto) 0.4 % (0.2-1.0) 05/30/19 04:23 Neut # (Auto) 10.1 x10^3/uL (2.2-4.8) H 05/30/19 04:23 Lymph # (Auto) 1.3 X10^3/uL (1.3-2.9) 05/30/19 04:23 [place] # (Auto) 1.2 x10^3/uL (0.3-0.8) H 05/30/19 04:23 Eos # (Auto) 0.3 x10^3/uL (0.0-0.2) H 05/30/19 04:23 Baso # (Auto) 0.0 X10^3/uL (0.0-0.1) 05/30/19 04:23 Absolute Nucleated RBC 0.0 /100WBC 05/30/19 04:23 Sodium 133 mmol/L (136-145) L 05/30/19 04:23 Corrected Sodium 134 mmol/L (136-145) L 05/30/19 04:23 Potassium 3.3 mmol/L (3.5-5.1) L 05/30/19 04:23 Chloride 97 mmol/L (98-107) L 05/30/19 04:23 Carbon Dioxide 26.7 mmol/L (21-32) 05/30/19 04:23 BUN 9 mg/dL (7-18) 05/30/19 04:23 Creatinine 0.30 mg/dL (0.55-1.02) L 05/30/19 08:21 Est GFR (MDRD) Af Amer > 60 (>60) 05/30/19 04:23 Est GFR (MDRD) Non-Af > 60 (>60) 05/30/19 04:23 Glucose 123 mg/dL (65-99) H 05/30/19 04:23 POC Glucose (mg/dL) 116 mg/dL (65-99) H 05/30/19 13:57 Calcium 7.9 mg/dL (8.5-10.1) L 05/30/19 04:23 Corrected Calcium 9.5 mg/dL (8.5-10.1) 05/30/19 04:23 Phosphorus 1.0 mg/dL (2.6-4.7) L 05/30/19 04:23 Magnesium 1.7 mg/dL (1.7-2.9) 05/30/19 04:23 Total Bilirubin 0.10 mg/dL (0.2-1.0) L 05/30/19 04:23 AST 16 Units/L (15-37) 05/30/19 04:23 ALT 14 Units/L (12-78) 05/30/19 04:23 Alkaline Phosphatase 129 Units/L (46-116) H 05/30/19 04:23 Total Protein 6.2 g/dL (6.4-8.2) L 05/30/19 04:23 Albumin 2.0 g/dL (3.4-5.0) L 05/30/19 04:23 Globulin 4.2 g/dL (2.5-4.5) 05/30/19 04:23 Albumin/Globulin Ratio 0.5 Ratio (1.1-2.1) L 05/30/19 04:23 Prealbumin 20.0 mg/dL (18-35.7) 05/30/19 04:23 Triglycerides 113 mg/dL (0-150) 05/30/19 04:23 Amylase 74 Units/L (25-115) 05/21/19 14:42 Lipase 110 Units/L (73-393) 05/21/19 14:42 Specimen Type Catherized urine 05/24/19 11:30 Urine Color Yellow (YELLOW) 05/24/19 11:30 Urine Appearance Hazy (CLEAR) 05/24/19 11:30 Urine pH 6.0 (5.0 - 8.0) 05/24/19 11:30 Ur Specific [place] 1.020 (1.000-1.030) 05/24/19 11:30 Urine Protein 1+ (NEGATIVE) 05/24/19 11:30 Urine Glucose (UA) 1+ (NEGATIVE) 05/24/19 11:30 Urine Ketones Negative (NEGATIVE) 05/24/19 11:30 Urine Occult Blood 1+ (NEGATIVE) 05/24/19 11:30 Urine Nitrite Negative (NEGATIVE) 05/24/19 11:30 Urine Bilirubin Negative (NEGATIVE) 05/24/19 11:30 Urine Urobilinogen Normal (NORMAL) 05/24/19 11:30 Ur Leukocyte Esterase Negative (NEGATIVE) 05/24/19 11:30 Urine RBC 0-2 /HPF (0-3) 05/24/19 11:30 Urine WBC None seen /HPF (0-5) 05/24/19 11:30 Ur Squamous Epith Cells Negative /HPF (NEGATIVE) 05/24/19 11:30 Amorphous Sediment 1+ /HPF (NEGATIVE) 05/24/19 11:30 Urine Bacteria Trace /HPF (NEGATIVE) 05/24/19 11:30 Ur Culture Indicated? No/not indicated 05/24/19 11:30 Vancomycin Trough 12.0 ug/mL (15-20) L 05/30/19 08:21 Cytology Specimen To follow 05/22/19 14:25 Tissue Pathology To follow 05/22/19 14:19 - Assessment and Plan 1: PO laparotomy , lysis of adhesions . Gastro-Jejunostomy. diverting colostomy . positive candidiasis in the GI tract . added Diflucan . same TPN ,OOB and PO care . to adnance to soft diet as tolerated . - Problem Patient Problems: Patient Problems Pelvic abscess (Acute) Malnutrition (Acute) E46 Status post colostomy (Acute) Z93.3 Abdominal pain (Acute) R10.9 Abscess of pelvis (Acute) Acute dehydration (Acute) E86.0
[2019-05-30] MEDS: MAGNESIUM SULFATE 1 GRAM/100 mL PREMIX 1 GM/100 ML BAG IV PRN (18:06)
--- NOTE | 2019-05-30 21:10 | PCM.PROG ---
Progress Note - Progress Note for Day of Date of Exam: 05/30/19 - Subjective Subjective: WAS ADMITTED FOR TREATMENT OF MALNUTRITION, PELVIC ABSCESS, ABDOMINAL PAIN, AND N/V. SHE IS DAY 6 STATUS POST EXPLORATORY LAP, LYSIS OF EXTENSIVE ADHESIONS, GASTRO JEJUNOSTOMY, AND COMPLETE DIVERTING COLOSTOMY. TODAY, SHE IS ALERT AND ORIENTED, LYING IN BED ON MORNING ROUNDS. SHE CONTINUES WITH COMPLAINTS OF MILD ABDOMINAL PAIN, BUT REPORTS SLIGHT IMPROVEMENT IN SYMPTOMS. ON EXAMINATION, HEART IS REGULAR IN RATE AND RHYTHM. BILATERAL LUNGS ARE NOTED WITH DIMINISHED LUNG SOUNDS THROUGHOUT. ABDOMEN IS FLAT, SOFT, AND NOTED WITH DIFFUSE TENDERNESS. DRESSING NOTED TO ABDOMEN. HYPOACTIVE BOWEL SOUNDS ARE NOTED IN ALL QUARANTS. THERE IS A COLOSTOMY NOTED. NO STOOL PRESENT IN BAG AT THIS TIME. HER VITALS THIS MORNING ARE: 98.2-84-22-100%-110/56. LABS WERE OBTAINED. ABNORMAL LAB VALUES INCLUDE THE FOLLOWING: WBC 13.0, RBC 3.21, HGB 10.0, HCT 29.5, SODIUM 133, POTASSIUM 3.3, CHLORIDE 97, CREATININE 0.40, GLUCOSE 123, CALCIUM 7.9, PHOSPHORUS 1.0, TOTAL BILI 0.10, ALK PHOS 129, TOTAL PROTEIN 6.2, ALBUMIN 2.0. SHE IS CURRENTLY RECEIVING: TPN, INVANZ 1G IV DAILY, VANCOMYCIN 500MG IV DAILY, IV PEPCID, IV PROTONIX, ZOFRAN 4MG IV Q8H PRN, DEMEROL 25MG IV Q6H PRN, FLAGYL IV, AND HOME MEDICATIONS WERE RESUMED. SHE IS ON A SOFT DIET. WE WILL CONTINUE WITH CURRENT PLAN OF CARE TODAY. PHYSICAL THERAPY WILL WORK WITH PATIENT. OTHERWISE, WE PLAN TO FOLLOW UP WITH AM LABS AND CONTINUE TO MONITOR. - Past Medical Family Social History Past Med/Fam/Surg Hx: No changes since H&P Allergies: Allergies lorazepam [From Ativan] Allergy (Verified 05/22/19 06:02) morphine Allergy (Verified 05/21/19 12:02) Penicillins Allergy (Verified 05/21/19 12:02) - Review of Systems ROS: No change since H&P - Vital Signs and I&O's Vital Signs: Temperature 98.9 F Pulse Rate [Apical] 85 Pulse Rate [Left Brachial] 77 Pulse Rate 92 Respiratory Rate 20 Blood Pressure [Left Arm] 128/60 Blood Pressure [Right Arm] 124/58 Blood Pressure 115/55 O2 Sat by Pulse Oximetry 100 Intake and Output: Intake & Output 05/28/19 05/29/19 05/30/19 05/31/19 11:59 11:59 11:59 11:59 Intake Total 3704 / 3704 5296 / 5296 4434 / 4434 1719 / 1719 Output Total 3930 / 3930 4365 / 4365 4210 / 4210 1655 / 1655 Balance -226 / -226 931 / 931 224 / 224 64 / 64 - Physical Exam Oriented: Normal Eyes: Normal Ear: Right (RIGHT EAR PAIN ) Nose: Normal Throat: Normal Respiratory: Generalized, Diminished Cardiovascular: Normal : Normal Auscultation: Bowel Sounds: Decreased Tenderness: Diffuse (soft with diffuse tenderness . BS hypo active .), Mild. negative: Rebound, Guarding, Rigidity Skin: Normal Musculoskeletal: Normal Psychiatric: Normal Mood Description: Calm Affect: Normal Speech Pattern: Clear, Appropriate - Laboratory and Diagnostics Result Diagrams: 05/30/19 04:23 05/30/19 20:03 Labs: Laboratory WBC 13.0 X10^3/uL (3.6-10.0) H 05/30/19 04:23 RBC 3.21 X10^6/uL (3.5-5.4) L 05/30/19 04:23 Hgb 10.0 g/dL (12.0-16.0) L 05/30/19 04:23 Hct 29.5 % (36.0-47.0) L 05/30/19 04:23 MCV 91.8 fL (80.0-100.0) 05/30/19 04:23 MCH 31.2 pg (27.0-34.0) 05/30/19 04:23 MCHC 34.0 g/dL (33.0-35.0) 05/30/19 04:23 RDW 17.3 % (11.6-16.5) H 05/30/19 04:23 Plt Count 339 X10^3/uL (150.0-450.0) 05/30/19 04:23 MPV 7.0 fL (7.4-11.0) L 05/30/19 04:23 Neut % (Auto) 78.2 % (42.0-75.0) H 05/30/19 04:23 Lymph % (Auto) 9.8 % (21.0-51.0) L 05/30/19 04:23 [place] % (Auto) 9.2 % (0.0-13.0) 05/30/19 04:23 Eos % (Auto) 2.4 % (0.9-2.9) 05/30/19 04:23 Baso % (Auto) 0.4 % (0.2-1.0) 05/30/19 04:23 Neut # (Auto) 10.1 x10^3/uL (2.2-4.8) H 05/30/19 04:23 Lymph # (Auto) 1.3 X10^3/uL (1.3-2.9) 05/30/19 04:23 [place] # (Auto) 1.2 x10^3/uL (0.3-0.8) H 05/30/19 04:23 Eos # (Auto) 0.3 x10^3/uL (0.0-0.2) H 05/30/19 04:23 Baso # (Auto) 0.0 X10^3/uL (0.0-0.1) 05/30/19 04:23 Absolute Nucleated RBC 0.0 /100WBC 05/30/19 04:23 Sodium 133 mmol/L (136-145) L 05/30/19 04:23 Corrected Sodium 134 mmol/L (136-145) L 05/30/19 04:23 Potassium 3.9 mmol/L (3.5-5.1) 05/30/19 20:03 Chloride 97 mmol/L (98-107) L 05/30/19 04:23 Carbon Dioxide 26.7 mmol/L (21-32) 05/30/19 04:23 BUN 9 mg/dL (7-18) 05/30/19 04:23 Creatinine 0.30 mg/dL (0.55-1.02) L 05/30/19 08:21 Est GFR (MDRD) Af Amer > 60 (>60) 05/30/19 04:23 Est GFR (MDRD) Non-Af > 60 (>60) 05/30/19 04:23 Glucose 123 mg/dL (65-99) H 05/30/19 04:23 POC Glucose (mg/dL) 125 mg/dL (65-99) H 05/30/19 20:54 Calcium 7.9 mg/dL (8.5-10.1) L 05/30/19 04:23 Corrected Calcium 9.5 mg/dL (8.5-10.1) 05/30/19 04:23 Phosphorus 1.0 mg/dL (2.6-4.7) L 05/30/19 04:23 Magnesium 1.7 mg/dL (1.7-2.9) 05/30/19 04:23 Total Bilirubin 0.10 mg/dL (0.2-1.0) L 05/30/19 04:23 AST 16 Units/L (15-37) 05/30/19 04:23 ALT 14 Units/L (12-78) 05/30/19 04:23 Alkaline Phosphatase 129 Units/L (46-116) H 05/30/19 04:23 Total Protein 6.2 g/dL (6.4-8.2) L 05/30/19 04:23 Albumin 2.0 g/dL (3.4-5.0) L 05/30/19 04:23 Globulin 4.2 g/dL (2.5-4.5) 05/30/19 04:23 Albumin/Globulin Ratio 0.5 Ratio (1.1-2.1) L 05/30/19 04:23 Prealbumin 20.0 mg/dL (18-35.7) 05/30/19 04:23 Triglycerides 113 mg/dL (0-150) 05/30/19 04:23 Amylase 74 Units/L (25-115) 05/21/19 14:42 Lipase 110 Units/L (73-393) 05/21/19 14:42 Specimen Type Catherized urine 05/24/19 11:30 Urine Color Yellow (YELLOW) 05/24/19 11:30 Urine Appearance Hazy (CLEAR) 05/24/19 11:30 Urine pH 6.0 (5.0 - 8.0) 05/24/19 11:30 Ur Specific [place] 1.020 (1.000-1.030) 05/24/19 11:30 Urine Protein 1+ (NEGATIVE) 05/24/19 11:30 Urine Glucose (UA) 1+ (NEGATIVE) 05/24/19 11:30 Urine Ketones Negative (NEGATIVE) 05/24/19 11:30 Urine Occult Blood 1+ (NEGATIVE) 05/24/19 11:30 Urine Nitrite Negative (NEGATIVE) 05/24/19 11:30 Urine Bilirubin Negative (NEGATIVE) 05/24/19 11:30 Urine Urobilinogen Normal (NORMAL) 05/24/19 11:30 Ur Leukocyte Esterase Negative (NEGATIVE) 05/24/19 11:30 Urine RBC 0-2 /HPF (0-3) 05/24/19 11:30 Urine WBC None seen /HPF (0-5) 05/24/19 11:30 Ur Squamous Epith Cells Negative /HPF (NEGATIVE) 05/24/19 11:30 Amorphous Sediment 1+ /HPF (NEGATIVE) 05/24/19 11:30 Urine Bacteria Trace /HPF (NEGATIVE) 05/24/19 11:30 Ur Culture Indicated? No/not indicated 05/24/19 11:30 Vancomycin Trough 12.0 ug/mL (15-20) L 05/30/19 08:21 Cytology Specimen To follow 05/22/19 14:25 Tissue Pathology To follow 05/22/19 14:19 - Plan (1) Pelvic abscess Status: Acute Plan: INVANZ 1G IV DAILY, VANCOMYCIN 500MG IV DAILY, IV PEPCID, ZOFRAN 4MG IV Q8H PRN, [place] PRN, DEMEROL 25MG IV Q6H PRN, AND HOME MEDICATIONS WERE RESUMED (2) Abdominal pain Status: Acute Qualifiers: Abdominal location: lower abdomen, unspecified Qualified Code(s): R10.30 - Lower abdominal pain, unspecified (3) Status post colostomy Status: Acute Plan: COLOSTOMY CARE AND TEACHING, CONTINUE TO MONITOR (4) Nausea & vomiting Status: Acute Qualifiers: Vomiting type: unspecified Vomiting Intractability: non-intractable Qualified Code(s): R11.2 - Nausea with vomiting, unspecified Plan: ZOFRAN 4MG IV Q8H PRN, CONTINUE TO MONITOR (5) Malnutrition Status: Acute Qualifiers: Malnutrition type: protein-calorie malnutrition Protein-calorie malnutrition severity: unspecified severity Qualified Code(s): E46 - Unspeci fied protein-calorie malnutrition Plan: TPN, CONTINUE TO MONITOR
[2019-05-30] MEDS: CLINIMIX 5 %/20 % 1,000 ML with MVI INJ (ADULT) 10 ML, TRACE ELEMENTS INJ 10 ML, TPN EL... IV SCH ×10 (21:24→21:36)
[2019-05-30] MEDS: LIPOSYN III 20% 100ML 100 ML IV SCH (21:34)
[2019-05-31] MEDS: NORCO 5/325 MG TAB PO PRN (03:01)
[2019-05-31] MEDS: D5 1/2 NS 1000 ML 1,000 ML IV SCH ×3 (04:13→18:38)
[2019-05-31 06:50] LABS: BASOPHILS # (AUTO) 0.1 X10^3/uL (0.0-0.1); BASOPHILS % (AUTO) 0.6 % (0.2-1.0); EOSINOPHILS # (AUTO) 0.3 x10^3/uL (0.0-0.2); EOSINOPHILS % (AUTO) 2.3 % (0.9-2.9); HEMOGLOBIN 10.2 g/dL (12.0-16.0); LYMPHOCYTES # (AUTO) 1.3 X10^3/uL (1.3-2.9); LYMPHOCYTES % (AUTO) 11.5 % (21.0-51.0); MEAN CORPUSCULAR HEMOGLOBIN 30.8 pg (27.0-34.0); MEAN CORPUSCULAR HGB CONC 32.9 g/dL (33.0-35.0); MEAN CORPUSCULAR VOLUME 93.7 fL (80.0-100.0); MEAN PLATELET VOLUME 7.5 fL (7.4-11.0); NEUTROPHILS # (AUTO) 8.6 x10^3/uL (2.2-4.8); NEUTROPHILS % (AUTO) 76.6 % (42.0-75.0); PLATELET COUNT 345 X10^3/uL (150.0-450.0); RED CELL DISTRIBUTION WIDTH 17.6 % (11.6-16.5); WHITE BLOOD COUNT 11.2 X10^3/uL (3.6-10.0)
[2019-05-31 07:00] LABS: ALANINE AMINOTRANSFERASE 15 Units/L (12-78); ALKALINE PHOSPHATASE 132 Units/L (46-116); ASPARTATE AMINO TRANSFERASE 15 Units/L (15-37); BLOOD UREA NITROGEN 9 mg/dL (7-18); CALCIUM 8.1 mg/dL (8.5-10.1); CARBON DIOXIDE 26.5 mmol/L (21-32); CHLORIDE 100 mmol/L (98-107); COR CA(FOR HYPOALB) 9.7 mg/dL (8.5-10.1); COR NA(FOR HYPERGLY) 136 mmol/L (136-145); CREATININE 0.37 mg/dL (0.55-1.02); MAGNESIUM 1.7 mg/dL (1.7-2.9); SODIUM 135 mmol/L (136-145); TOTAL PROTEIN 6.2 g/dL (6.4-8.2); eGFR NON BLACK RACES > 60 (>60)
[2019-05-31 07:40] LABS: PLATELET MORPHOLOGY COMMENT NORMAL (NORMAL)
[2019-05-31] MEDS: FLAGYL IV PREMIX 500 MG BAG 500 MG/100 ML BAG IV SCH ×2 (09:07→21:59)
[2019-05-31] MEDS: PROTONIX INJ 40 MG VIAL IVP SCH (09:33)
[2019-05-31] MEDS: LOVENOX INJ 40 MG SYR SC SCH (09:33)
[2019-05-31] MEDS: FOLIC ACID TAB 1 MG PO SCH (09:33)
[2019-05-31] MEDS: NADOLOL 10 MG PO SCH (09:42)
[2019-05-31] MEDS: CYMBALTA PO SCH (09:42)
[2019-05-31] MEDS: DIFLUCAN 100 MG IV (MIX by PHARMACY)* 100 MG/50 ML BAG IV SCH (10:22)
[2019-05-31] MEDS: DEMEROL INJ IVP PRN ×2 (11:19→22:13)
[2019-05-31] MEDS: INVANZ INJ 1 GM VIAL 1 GM in NS 100 ML IV + SPIKE MINIBAG* 100 ML IV SCH (11:20)
[2019-05-31] MEDS: CLINIMIX 5 %/20 % 1,000 ML with MVI INJ (ADULT) 10 ML, TRACE ELEMENTS INJ 10 ML, TPN EL... IV SCH ×10 (11:52→23:05)
[2019-05-31] MEDS: VANCOMYCIN HCL 750 MG in D5W 250 ML IV 250 ML IV SCH ×2 (12:29→20:59)
--- NOTE | 2019-05-31 14:28 | RAD ---
Acute abdomenHISTORY:ABD PAINStudy: Frontal view of the chest, flat and upright views of the abdomenComparison:NoneFindings:Cardiomediastinal silhouette is normal in size .No focal consolidations, pleural effusions or pneumothorax. Hyperexpansion with coarsening of interstitial markings.Flat and upright views of the abdomen demonstrates a normal bowel gas pattern.No free air..No abnormal calcifications or abnormal soft tissue shadows. No acute bony abnormalities.IMPRESSION:1. No acute cardiopulmonary disease.2. No evidence for acute abdominal pathology.Electronically signed by: PRIYA LEWIS (May 31, 2019 14:27:05)
--- NOTE | 2019-05-31 15:20 | DR.PROGNOT ---
Hospital Progress Notes - Progress Note for Day of: Progress Note Date: 05/31/19 - Chief Complaint Chief Complaint: no changes .still with occasional confusion and disorientation . vomited large amount of bile last night and c/o mid abdominal pain . colostomy is functioning today with only small amount of stool in the bag .. - Past Medical Family Social History Past Med/Fam/Surg Hx: No changes since H&P Allergies: Allergies lorazepam [From Ativan] Allergy (Verified 05/22/19 06:02) morphine Allergy (Verified 05/21/19 12:02) Penicillins Allergy (Verified 05/21/19 12:02) - Review Of Systems ROS: No change since H&P - Vital Signs Vital Signs: Temperature 98.1 F Pulse Rate [Apical] 92 Pulse Rate [Left Brachial] 77 Pulse Rate 92 Respiratory Rate 18 Blood Pressure [Left Arm] 108/52 Blood Pressure [Right Arm] 138/66 Blood Pressure 115/55 O2 Sat by Pulse Oximetry 99 - Physical Exam Oriented: Normal Eyes: Normal Ear: Right (RIGHT EAR PAIN ) Nose: Normal Throat: Normal Respiratory: Generalized, Diminished Cardiovascular: Normal : Normal GI:Auscultation: Decreased GI:Palpation: Normal GI: Tenderness: Diffuse (soft with diffuse tenderness . BS hypo active .), Mild. negative: Rebound, Guarding, Rigidity Skin: Normal Musculoskeletal: Normal Psychiatric: Normal Mood Description: Calm Affect: Normal Speech Pattern: Clear, Appropriate - Laboratory and Diagnostics Result Diagrams: 05/31/19 04:35 05/31/19 04:35 Labs: Laboratory WBC 11.2 X10^3/uL (3.6-10.0) H 05/31/19 04:35 RBC 3.30 X10^6/uL (3.5-5.4) L 05/31/19 04:35 Hgb 10.2 g/dL (12.0-16.0) L 05/31/19 04:35 Hct 31.0 % (36.0-47.0) L 05/31/19 04:35 MCV 93.7 fL (80.0-100.0) 05/31/19 04:35 MCH 30.8 pg (27.0-34.0) 05/31/19 04:35 MCHC 32.9 g/dL (33.0-35.0) L 05/31/19 04:35 RDW 17.6 % (11.6-16.5) H 05/31/19 04:35 Plt Count 345 X10^3/uL (150.0-450.0) 05/31/19 04:35 Plt Count Comment Adequate (ADEQUATE) 05/31/19 04:35 MPV 7.5 fL (7.4-11.0) 05/31/19 04:35 Neut % (Auto) 76.6 % (42.0-75.0) H 05/31/19 04:35 Lymph % (Auto) 11.5 % (21.0-51.0) L 05/31/19 04:35 [place] % (Auto) 9.0 % (0.0-13.0) 05/31/19 04:35 Eos % (Auto) 2.3 % (0.9-2.9) 05/31/19 04:35 Baso % (Auto) 0.6 % (0.2-1.0) 05/31/19 04:35 Neut # (Auto) 8.6 x10^3/uL (2.2-4.8) H 05/31/19 04:35 Lymph # (Auto) 1.3 X10^3/uL (1.3-2.9) 05/31/19 04:35 [place] # (Auto) 1.0 x10^3/uL (0.3-0.8) H 05/31/19 04:35 Eos # (Auto) 0.3 x10^3/uL (0.0-0.2) H 05/31/19 04:35 Baso # (Auto) 0.1 X10^3/uL (0.0-0.1) 05/31/19 04:35 Absolute Nucleated RBC 0.1 /100WBC 05/31/19 04:35 Plt Clumps, EDTA Rare 05/31/19 04:35 Plt Morphology Comment Normal (NORMAL) 05/31/19 04:35 RBC Morphology Normal (NORMAL) 05/31/19 04:35 Sodium 135 mmol/L (136-145) L 05/31/19 04:35 Corrected Sodium 136 mmol/L (136-145) 05/31/19 04:35 Potassium 3.2 mmol/L (3.5-5.1) L 05/31/19 04:35 Chloride 100 mmol/L (98-107) 05/31/19 04:35 Carbon Dioxide 26.5 mmol/L (21-32) 05/31/19 04:35 BUN 9 mg/dL (7-18) 05/31/19 04:35 Creatinine 0.37 mg/dL (0.55-1.02) L 05/31/19 04:35 Est GFR (MDRD) Af Amer > 60 (>60) 05/31/19 04:35 Est GFR (MDRD) Non-Af > 60 (>60) 05/31/19 04:35 Glucose 130 mg/dL (65-99) H 05/31/19 04:35 POC Glucose (mg/dL) 161 mg/dL (65-99) H 05/31/19 13:51 Calcium 8.1 mg/dL (8.5-10.1) L 05/31/19 04:35 Corrected Calcium 9.7 mg/dL (8.5-10.1) 05/31/19 04:35 Phosphorus 1.0 mg/dL (2.6-4.7) L 05/30/19 04:23 Magnesium 1.7 mg/dL (1.7-2.9) 05/31/19 04:35 Total Bilirubin 0.10 mg/dL (0.2-1.0) L 05/31/19 04:35 AST 15 Units/L (15-37) 05/31/19 04:35 ALT 15 Units/L (12-78) 05/31/19 04:35 Alkaline Phosphatase 132 Units/L (46-116) H 05/31/19 04:35 Total Protein 6.2 g/dL (6.4-8.2) L 05/31/19 04:35 Albumin 2.0 g/dL (3.4-5.0) L 05/31/19 04:35 Globulin 4.2 g/dL (2.5-4.5) 05/31/19 04:35 Albumin/Globulin Ratio 0.5 Ratio (1.1-2.1) L 05/31/19 04:35 Prealbumin 20.0 mg/dL (18-35.7) 05/30/19 04:23 Triglycerides 113 mg/dL (0-150) 05/30/19 04:23 Amylase 74 Units/L (25-115) 05/21/19 14:42 Lipase 110 Units/L (73-393) 05/21/19 14:42 Specimen Type Catherized urine 05/24/19 11:30 Urine Color Yellow (YELLOW) 05/24/19 11:30 Urine Appearance Hazy (CLEAR) 05/24/19 11:30 Urine pH 6.0 (5.0 - 8.0) 05/24/19 11:30 Ur Specific [place] 1.020 (1.000-1.030) 05/24/19 11:30 Urine Protein 1+ (NEGATIVE) 05/24/19 11:30 Urine Glucose (UA) 1+ (NEGATIVE) 05/24/19 11:30 Urine Ketones Negative (NEGATIVE) 05/24/19 11:30 Urine Occult Blood 1+ (NEGATIVE) 05/24/19 11:30 Urine Nitrite Negative (NEGATIVE) 05/24/19 11:30 Urine Bilirubin Negative (NEGATIVE) 05/24/19 11:30 Urine Urobilinogen Normal (NORMAL) 05/24/19 11:30 Ur Leukocyte Esterase Negative (NEGATIVE) 05/24/19 11:30 Urine RBC 0-2 /HPF (0-3) 05/24/19 11:30 Urine WBC None seen /HPF (0-5) 05/24/19 11:30 Ur Squamous Epith Cells Negative /HPF (NEGATIVE) 05/24/19 11:30 Amorphous Sediment 1+ /HPF (NEGATIVE) 05/24/19 11:30 Urine Bacteria Trace /HPF (NEGATIVE) 05/24/19 11:30 Ur Culture Indicated? No/not indicated 05/24/19 11:30 Vancomycin Trough 12.0 ug/mL (15-20) L 05/30/19 08:21 Cytology Specimen To follow 05/22/19 14:25 Tissue Pathology To follow 05/22/19 14:19 - Assessment and Plan 1: PO laparotomy , lysis of adhesions . Gastro-Jejunostomy. diverting colostomy . positive candidiasis in the GI tract . anemia . malnutrition with hypo Albuminemia . same TPN , IVF with Diflucan and ATB . added Diflucan . same TPN ,OOB and PO care . to adnance to soft diet as tolerated . - Problem Patient Problems: Patient Problems Pelvic abscess (Acute) Malnutrition (Acute) E46 Status post colostomy (Acute) Z93.3 Abdominal pain (Acute) R10.9 Abscess of pelvis (Acute) Acute dehydration (Acute) E86.0
--- NOTE | 2019-05-31 16:35 | PCM.PROG ---
Progress Note - Progress Note for Day of Date of Exam: 05/31/19 - Subjective Subjective: WAS ADMITTED FOR TREATMENT OF MALNUTRITION, PELVIC ABSCESS, ABDOMINAL PAIN, AND N/V. SHE IS DAY 7 STATUS POST EXPLORATORY LAP, LYSIS OF EXTENSIVE ADHESIONS, GASTRO JEJUNOSTOMY, AND COMPLETE DIVERTING COLOSTOMY. TODAY, SHE IS ALERT AND ORIENTED, LYING IN BED ON MORNING ROUNDS. SHE CONTINUES WITH COMPLAINTS OF MILD ABDOMINAL PAIN, BUT REPORTS SLIGHT IMPROVEMENT IN SYMPTOMS. STAFF REPORTS THAT SHE VOMITED A LARGE AMOUNT OF BILE LAST NIGHT. ON EXAMINATION, HEART IS REGULAR IN RATE AND RHYTHM. BILATERAL LUNGS ARE NOTED WITH DIMINISHED LUNG SOUNDS THROUGHOUT. ABDOMEN IS FLAT, SOFT, AND NOTED WITH DIFFUSE TENDERNESS. DRESSING NOTED TO ABDOMEN. HYPOACTIVE BOWEL SOUNDS ARE NOTED IN ALL QUARANTS. THERE IS A COLOSTOMY NOTED. A VERY SMALL AMOUNT OF STOOL PRESENT IN BAG AT THIS TIME. HER VITALS THIS MORNING ARE: 97.6-83-16-98%-108/62. LABS WERE OBTAINED. ABNORMAL LAB VALUES INCLUDE THE FOLLOWING: WBC 11.2, RBC 3.30, HGB 10.2, HCT 31.0, SODIUM 135, POTASSIUM 3.2, CREATININE 0.37, GLUCOSE 130, CALCIUM 8.1, TOTAL BILI 0.10, ALK PHOS 132, TOTAL PROTEIN 6.2, ALBUMIN 2.0. SHE IS CURRENTLY RECEIVING: TPN, INVANZ 1G IV DAILY, VANCOMYCIN 500MG IV DAILY, IV PEPCID, IV PROTONIX, ZOFRAN 4MG IV Q8H PRN, DEMEROL 25MG IV Q6H PRN, FLAGYL IV, AND HOME MEDICATIONS WERE RESUMED. SHE IS ON A SOFT DIET. WE WILL CONTINUE WITH CURRENT PLAN OF CARE TODAY AND OBTAIN AN ABDOMINAL SERIES. PHYSICAL THERAPY WILL WORK WITH PATIENT. OTHERWISE, WE PLAN TO FOLLOW UP WITH AM LABS AND CONTINUE TO MONITOR. - Past Medical Family Social History Past Med/Fam/Surg Hx: No changes since H&P Allergies: Allergies lorazepam [From Ativan] Allergy (Verified 05/22/19 06:02) morphine Allergy (Verified 05/21/19 12:02) Penicillins Allergy (Verified 05/21/19 12:02) - Review of Systems ROS: No change since H&P - Vital Signs and I&O's Vital Signs: Temperature 98.3 F Pulse Rate [Apical] 82 Pulse Rate [Left Brachial] 77 Pulse Rate 92 Respiratory Rate 16 Blood Pressure [Left Arm] 108/52 Blood Pressure [Right Arm] 102/57 Blood Pressure 115/55 O2 Sat by Pulse Oximetry 100 Intake and Output: Intake & Output 05/29/19 05/30/19 05/31/19 06/01/19 11:59 11:59 11:59 11:59 Intake Total 5296 / 5296 4434 / 4434 4311 / 4311 2119 Output Total 4365 / 4365 4210 / 4210 1655 / 1655 Balance 931 / 931 224 / 224 2656 / 2656 2119 - Physical Exam Oriented: Normal Eyes: Normal Ear: Right (RIGHT EAR PAIN ) Nose: Normal Throat: Normal Respiratory: Generalized, Diminished Cardiovascular: Normal : Normal Auscultation: Bowel Sounds: Decreased Tenderness: Diffuse (soft with diffuse tenderness . BS hypo active .), Mild. negative: Rebound, Guarding, Rigidity Skin: Normal Musculoskeletal: Normal Psychiatric: Normal Mood Description: Calm Affect: Normal Speech Pattern: Clear, Appropriate - Laboratory and Diagnostics Result Diagrams: 05/31/19 04:35 05/31/19 04:35 Labs: Laboratory WBC 11.2 X10^3/uL (3.6-10.0) H 05/31/19 04:35 RBC 3.30 X10^6/uL (3.5-5.4) L 05/31/19 04:35 Hgb 10.2 g/dL (12.0-16.0) L 05/31/19 04:35 Hct 31.0 % (36.0-47.0) L 05/31/19 04:35 MCV 93.7 fL (80.0-100.0) 05/31/19 04:35 MCH 30.8 pg (27.0-34.0) 05/31/19 04:35 MCHC 32.9 g/dL (33.0-35.0) L 05/31/19 04:35 RDW 17.6 % (11.6-16.5) H 05/31/19 04:35 Plt Count 345 X10^3/uL (150.0-450.0) 05/31/19 04:35 Plt Count Comment Adequate (ADEQUATE) 05/31/19 04:35 MPV 7.5 fL (7.4-11.0) 05/31/19 04:35 Neut % (Auto) 76.6 % (42.0-75.0) H 05/31/19 04:35 Lymph % (Auto) 11.5 % (21.0-51.0) L 05/31/19 04:35 [place] % (Auto) 9.0 % (0.0-13.0) 05/31/19 04:35 Eos % (Auto) 2.3 % (0.9-2.9) 05/31/19 04:35 Baso % (Auto) 0.6 % (0.2-1.0) 05/31/19 04:35 Neut # (Auto) 8.6 x10^3/uL (2.2-4.8) H 05/31/19 04:35 Lymph # (Auto) 1.3 X10^3/uL (1.3-2.9) 05/31/19 04:35 [place] # (Auto) 1.0 x10^3/uL (0.3-0.8) H 05/31/19 04:35 Eos # (Auto) 0.3 x10^3/uL (0.0-0.2) H 05/31/19 04:35 Baso # (Auto) 0.1 X10^3/uL (0.0-0.1) 05/31/19 04:35 Absolute Nucleated RBC 0.1 /100WBC 05/31/19 04:35 Plt Clumps, EDTA Rare 05/31/19 04:35 Plt Morphology Comment Normal (NORMAL) 05/31/19 04:35 RBC Morphology Normal (NORMAL) 05/31/19 04:35 Sodium 135 mmol/L (136-145) L 05/31/19 04:35 Corrected Sodium 136 mmol/L (136-145) 05/31/19 04:35 Potassium 3.2 mmol/L (3.5-5.1) L 05/31/19 04:35 Chloride 100 mmol/L (98-107) 05/31/19 04:35 Carbon Dioxide 26.5 mmol/L (21-32) 05/31/19 04:35 BUN 9 mg/dL (7-18) 05/31/19 04:35 Creatinine 0.37 mg/dL (0.55-1.02) L 05/31/19 04:35 Est GFR (MDRD) Af Amer > 60 (>60) 05/31/19 04:35 Est GFR (MDRD) Non-Af > 60 (>60) 05/31/19 04:35 Glucose 130 mg/dL (65-99) H 05/31/19 04:35 POC Glucose (mg/dL) 161 mg/dL (65-99) H 05/31/19 13:51 Calcium 8.1 mg/dL (8.5-10.1) L 05/31/19 04:35 Corrected Calcium 9.7 mg/dL (8.5-10.1) 05/31/19 04:35 Phosphorus 1.0 mg/dL (2.6-4.7) L 05/30/19 04:23 Magnesium 1.7 mg/dL (1.7-2.9) 05/31/19 04:35 Total Bilirubin 0.10 mg/dL (0.2-1.0) L 05/31/19 04:35 AST 15 Units/L (15-37) 05/31/19 04:35 ALT 15 Units/L (12-78) 05/31/19 04:35 Alkaline Phosphatase 132 Units/L (46-116) H 05/31/19 04:35 Total Protein 6.2 g/dL (6.4-8.2) L 05/31/19 04:35 Albumin 2.0 g/dL (3.4-5.0) L 05/31/19 04:35 Globulin 4.2 g/dL (2.5-4.5) 05/31/19 04:35 Albumin/Globulin Ratio 0.5 Ratio (1.1-2.1) L 05/31/19 04:35 Prealbumin 20.0 mg/dL (18-35.7) 05/30/19 04:23 Triglycerides 113 mg/dL (0-150) 05/30/19 04:23 Amylase 74 Units/L (25-115) 05/21/19 14:42 Lipase 110 Units/L (73-393) 05/21/19 14:42 Specimen Type Catherized urine 05/24/19 11:30 Urine Color Yellow (YELLOW) 05/24/19 11:30 Urine Appearance Hazy (CLEAR) 05/24/19 11:30 Urine pH 6.0 (5.0 - 8.0) 05/24/19 11:30 Ur Specific [place] 1.020 (1.000-1.030) 05/24/19 11:30 Urine Protein 1+ (NEGATIVE) 05/24/19 11:30 Urine Glucose (UA) 1+ (NEGATIVE) 05/24/19 11:30 Urine Ketones Negative (NEGATIVE) 05/24/19 11:30 Urine Occult Blood 1+ (NEGATIVE) 05/24/19 11:30 Urine Nitrite Negative (NEGATIVE) 05/24/19 11:30 Urine Bilirubin Negative (NEGATIVE) 05/24/19 11:30 Urine Urobilinogen Normal (NORMAL) 05/24/19 11:30 Ur Leukocyte Esterase Negative (NEGATIVE) 05/24/19 11:30 Urine RBC 0-2 /HPF (0-3) 05/24/19 11:30 Urine WBC None seen /HPF (0-5) 05/24/19 11:30 Ur Squamous Epith Cells Negative /HPF (NEGATIVE) 05/24/19 11:30 Amorphous Sediment 1+ /HPF (NEGATIVE) 05/24/19 11:30 Urine Bacteria Trace /HPF (NEGATIVE) 05/24/19 11:30 Ur Culture Indicated? No/not indicated 05/24/19 11:30 Vancomycin Trough 12.0 ug/mL (15-20) L 05/30/19 08:21 Cytology Specimen To follow 05/22/19 14:25 Tissue Pathology To follow 05/22/19 14:19 - Plan (1) Pelvic abscess Status: Acute Plan: INVANZ 1G IV DAILY, VANCOMYCIN 500MG IV DAILY, IV PEPCID, ZOFRAN 4MG IV Q8H PRN, NORCO PRN, DEMEROL 25MG IV Q6H PRN, AND HOME MEDICATIONS WERE RESUMED (2) Abdominal pain Status: Acute Qualifiers: Abdominal location: lower abdomen, unspecified Qualified Code(s): R10.30 - Lower abdominal pain, unspecified (3) Status post colostomy Status: Acute Plan: COLOSTOMY CARE AND TEACHING, CONTINUE TO MONITOR (4) Nausea & vomiting Status: Acute Qualifiers: Vomiting type: unspecified Vomiting Intractability: non-intractable Qualified Code(s): R11.2 - Nausea with vomiting, unspecified Plan: ZOFRAN 4MG IV Q8H PRN, CONTINUE TO MONITOR (5) Malnutrition Status: Acute Qualifiers: Malnutrition type: protein-calorie malnutrition Protein-calorie mal nutrition severity: unspecified severity Qualified Code(s): E46 - Unspecified protein-calorie malnutrition Plan: TPN, CONTINUE TO MONITOR
[2019-05-31] MEDS: ZOFRAN INJ 4 MG VIAL IVP PRN (17:15)
[2019-05-31] MEDS: LIPOSYN III 20% 100ML 100 ML IV SCH (21:07)
[2019-05-31] MEDS: MAG-OX TAB PO SCH (21:11)
[2019-06-01] MEDS: D5 1/2 NS 1000 ML 1,000 ML IV SCH ×3 (01:35→17:28)
[2019-06-01 05:28] LABS: BASOPHILS # (AUTO) 0.1 X10^3/uL (0.0-0.1); BASOPHILS % (AUTO) 0.5 % (0.2-1.0); EOSINOPHILS # (AUTO) 0.3 x10^3/uL (0.0-0.2); EOSINOPHILS % (AUTO) 2.3 % (0.9-2.9); HEMATOCRIT 30.3 % (36.0-47.0); HEMOGLOBIN 10.3 g/dL (12.0-16.0); LYMPHOCYTES # (AUTO) 1.5 X10^3/uL (1.3-2.9); LYMPHOCYTES % (AUTO) 13.2 % (21.0-51.0); MEAN CORPUSCULAR HEMOGLOBIN 30.7 pg (27.0-34.0); MEAN CORPUSCULAR HGB CONC 33.9 g/dL (33.0-35.0); MEAN CORPUSCULAR VOLUME 90.6 fL (80.0-100.0); MONOCYTES # (AUTO) 0.9 x10^3/uL (0.3-0.8); MONOCYTES % (AUTO) 7.9 % (0.0-13.0); NEUTROPHILS # (AUTO) 8.5 x10^3/uL (2.2-4.8); NEUTROPHILS % (AUTO) 76.1 % (42.0-75.0); PLATELET COUNT 415 X10^3/uL (150.0-450.0); RED BLOOD COUNT 3.34 X10^6/uL (3.5-5.4); RED CELL DISTRIBUTION WIDTH 17.1 % (11.6-16.5); WHITE BLOOD COUNT 11.2 X10^3/uL (3.6-10.0)
[2019-06-01 05:35] LABS: ALANINE AMINOTRANSFERASE 17 Units/L (12-78); ALKALINE PHOSPHATASE 162 Units/L (46-116); ASPARTATE AMINO TRANSFERASE 18 Units/L (15-37); BLOOD UREA NITROGEN 11 mg/dL (7-18); CALCIUM 8.3 mg/dL (8.5-10.1); CARBON DIOXIDE 26.5 mmol/L (21-32); CHLORIDE 99 mmol/L (98-107); COR CA(FOR HYPOALB) 9.9 mg/dL (8.5-10.1); SODIUM 133 mmol/L (136-145); TOTAL PROTEIN 6.3 g/dL (6.4-8.2); eGFR NON BLACK RACES > 60 (>60)
[2019-06-01] MEDS: CLINIMIX 5 %/20 % 1,000 ML with MVI INJ (ADULT) 10 ML, TRACE ELEMENTS INJ 10 ML, TPN EL... IV SCH ×10 (08:02→20:00)
[2019-06-01] MEDS: MAG-OX TAB PO SCH ×2 (08:59→21:00)
[2019-06-01] MEDS: CYMBALTA PO SCH (08:59)
[2019-06-01] MEDS: FLAGYL IV PREMIX 500 MG BAG 500 MG/100 ML BAG IV SCH ×2 (08:59→21:58)
[2019-06-01] MEDS: PROTONIX INJ 40 MG VIAL IVP SCH (08:59)
[2019-06-01] MEDS: FOLIC ACID TAB 1 MG PO SCH (08:59)
[2019-06-01] MEDS: DIFLUCAN 100 MG IV (MIX by PHARMACY)* 100 MG/50 ML BAG IV SCH (09:07)
[2019-06-01] MEDS: NADOLOL 10 MG PO SCH (09:08)
[2019-06-01 09:14] LABS: CREATININE 0.39 mg/dL (0.55-1.02); VANCOMYCIN,TROUGH 8.5 ug/mL (15-20)
[2019-06-01] MEDS: NORCO 5/325 MG TAB PO PRN (09:33)
[2019-06-01] MEDS: VANCOMYCIN HCL 750 MG in D5W 250 ML IV 250 ML IV SCH (09:34)
[2019-06-01] MEDS: LOVENOX INJ 40 MG SYR SC SCH (11:36)
[2019-06-01] MEDS ORDERED: INVANZ INJ 1 GM VIAL 1 GM in NS 100 ML IV + SPIKE MINIBAG* 100 ML IV SCH (13:00)
[2019-06-01] MEDS: DEMEROL INJ IVP PRN ×2 (14:21→20:57)
[2019-06-01] MEDS: ZOFRAN INJ 4 MG VIAL IVP PRN (19:26)
--- NOTE | 2019-06-01 19:54 | PCM.PROG ---
Progress Note - Progress Note for Day of Date of Exam: 06/01/19 - Subjective Subjective: WAS ADMITTED FOR TREATMENT OF MALNUTRITION, PELVIC ABSCESS, ABDOMINAL PAIN, AND N/V. SHE IS DAY 8 STATUS POST EXPLORATORY LAP, LYSIS OF EXTENSIVE ADHESIONS, GASTRO JEJUNOSTOMY, AND COMPLETE DIVERTING COLOSTOMY. TODAY, SHE IS ALERT AND ORIENTED, LYING IN BED ON MORNING ROUNDS. SHE REPORTS WEAKNESS, AND MILD ABDOMINAL PAIN WHEN MOVING, BUT REPORTS OVERALL IMPROVEMENT IN SYMPTOMS. SHE DENIES NAUSEA OR VOMITING THIS MORNING. ON EXAMINATION, HEART IS REGULAR IN RATE AND RHYTHM. BILATERAL LUNGS ARE NOTED WITH DIMINISHED LUNG SOUNDS THROUGHOUT. ABDOMEN IS FLAT, SOFT, AND NOTED WITH DIFFUSE TENDERNESS. DRESSING NOTED TO ABDOMEN. HYPOACTIVE BOWEL SOUNDS ARE NOTED IN ALL QUARANTS. THERE IS A COLOSTOMY NOTED. A VERY SMALL AMOUNT OF STOOL PRESENT IN BAG AT THIS TIME. HER VITALS THIS MORNING ARE: 98.5-76-18-100%-116/52. LABS WERE OBTAINED. ABNORMAL LAB VALUES INCLUDE THE FOLLOWING: WBC 11.2, RBC 3.34, HGB 10.3, HCT 30.3, SODIUM 133, CREATININE 0.40, CALCIUM 8.3, MAGNESIUM 1.5, TOTAL BILI 0.10, ALK PHOS 162, TOTAL PROTEIN 6.3, ALBUMIN 2.0. SHE IS CURRENTLY RECEIVING: TPN, INVANZ 1G IV DAILY, VANCOMYCIN 500MG IV DAILY, IV PEPCID, IV PROTONIX, ZOFRAN 4MG IV Q8H PRN, DEMEROL 25MG IV Q6H PRN, FLAGYL IV, AND HOME MEDICATIONS WERE RESUMED. SHE IS ON A SOFT DIET. WE WILL CONTINUE WITH CURRENT PLAN OF CARE TODAY. PHYSICAL THERAPY WILL WORK WITH PATIENT. OTHERWISE, WE PLAN TO FOLLOW UP WITH AM LABS AND CONTINUE TO MONITOR. - Past Medical Family Social History Past Med/Fam/Surg Hx: No changes since H&P Allergies: Allergies lorazepam [From Ativan] Allergy (Verified 05/22/19 06:02) morphine Allergy (Verified 05/21/19 12:02) Penicillins Allergy (Verified 05/21/19 12:02) - Review of Systems ROS: No change since H&P - Vital Signs and I&O's Vital Signs: Temperature 98.5 F Pulse Rate [Apical] 76 Pulse Rate [Left Brachial] 83 Pulse Rate 92 Respiratory Rate 16 Blood Pressure [Left Arm] 105/47 Blood Pressure [Right Arm] 103/51 Blood Pressure 115/55 O2 Sat by Pulse Oximetry 99 Intake and Output: Intake & Output 05/30/19 05/31/19 06/01/19 06/02/19 11:59 11:59 11:59 11:59 Intake Total 4434 / 4434 4311 / 4311 5632 / 5632 580 / 580 Output Total 4210 / 4210 1655 / 1655 25 / 25 Balance 224 / 224 2656 / 2656 5607 / 5607 580 / 580 - Physical Exam Oriented: Normal Eyes: Normal Ear: Right (RIGHT EAR PAIN ) Nose: Normal Throat: Normal Respiratory: Generalized, Diminished Cardiovascular: Normal : Normal Auscultation: Bowel Sounds: Decreased Palpation: Normal Tenderness: Diffuse (soft with diffuse tenderness . BS hypo active .), Mild. negative: Rebound, Guarding, Rigidity Skin: Normal Musculoskeletal: Normal Psychiatric: Normal Mood Description: Calm Affect: Normal Speech Pattern: Clear, Appropriate - Laboratory and Diagnostics Result Diagrams: 06/01/19 04:59 06/01/19 08:35 Labs: Laboratory WBC 11.2 X10^3/uL (3.6-10.0) H 06/01/19 04:59 RBC 3.34 X10^6/uL (3.5-5.4) L 06/01/19 04:59 Hgb 10.3 g/dL (12.0-16.0) L 06/01/19 04:59 Hct 30.3 % (36.0-47.0) L 06/01/19 04:59 MCV 90.6 fL (80.0-100.0) 06/01/19 04:59 MCH 30.7 pg (27.0-34.0) 06/01/19 04:59 MCHC 33.9 g/dL (33.0-35.0) 06/01/19 04:59 RDW 17.1 % (11.6-16.5) H 06/01/19 04:59 Plt Count 415 X10^3/uL (150.0-450.0) 06/01/19 04:59 Plt Count Comment Adequate (ADEQUATE) 05/31/19 04:35 MPV 7.0 fL (7.4-11.0) L 06/01/19 04:59 Neut % (Auto) 76.1 % (42.0-75.0) H 06/01/19 04:59 Lymph % (Auto) 13.2 % (21.0-51.0) L 06/01/19 04:59 [place] % (Auto) 7.9 % (0.0-13.0) 06/01/19 04:59 Eos % (Auto) 2.3 % (0.9-2.9) 06/01/19 04:59 Baso % (Auto) 0.5 % (0.2-1.0) 06/01/19 04:59 Neut # (Auto) 8.5 x10^3/uL (2.2-4.8) H 06/01/19 04:59 Lymph # (Auto) 1.5 X10^3/uL (1.3-2.9) 06/01/19 04:59 [place] # (Auto) 0.9 x10^3/uL (0.3-0.8) H 06/01/19 04:59 Eos # (Auto) 0.3 x10^3/uL (0.0-0.2) H 06/01/19 04:59 Baso # (Auto) 0.1 X10^3/uL (0.0-0.1) 06/01/19 04:59 Absolute Nucleated RBC 0.0 /100WBC 06/01/19 04:59 Plt Clumps, EDTA Rare 05/31/19 04:35 Plt Morphology Comment Normal (NORMAL) 05/31/19 04:35 RBC Morphology Normal (NORMAL) 05/31/19 04:35 Sodium 133 mmol/L (136-145) L 06/01/19 04:59 Corrected Sodium TNP 06/01/19 04:59 Potassium 3.6 mmol/L (3.5-5.1) 06/01/19 04:59 Chloride 99 mmol/L (98-107) 06/01/19 04:59 Carbon Dioxide 26.5 mmol/L (21-32) 06/01/19 04:59 BUN 11 mg/dL (7-18) 06/01/19 04:59 Creatinine 0.39 mg/dL (0.55-1.02) L 06/01/19 08:35 Est GFR (MDRD) Af Amer > 60 (>60) 06/01/19 04:59 Est GFR (MDRD) Non-Af > 60 (>60) 06/01/19 04:59 Glucose 97 mg/dL (65-99) 06/01/19 04:59 POC Glucose (mg/dL) 117 mg/dL (65-99) H 06/01/19 14:09 Calcium 8.3 mg/dL (8.5-10.1) L 06/01/19 04:59 Corrected Calcium 9.9 mg/dL (8.5-10.1) 06/01/19 04:59 Phosphorus 1.0 mg/dL (2.6-4.7) L 05/30/19 04:23 Magnesium 1.5 mg/dL (1.7-2.9) L 06/01/19 04:59 Total Bilirubin 0.10 mg/dL (0.2-1.0) L 06/01/19 04:59 AST 18 Units/L (15-37) 06/01/19 04:59 ALT 17 Units/L (12-78) 06/01/19 04:59 Alkaline Phosphatase 162 Units/L (46-116) H 06/01/19 04:59 Total Protein 6.3 g/dL (6.4-8.2) L 06/01/19 04:59 Albumin 2.0 g/dL (3.4-5.0) L 06/01/19 04:59 Globulin 4.3 g/dL (2.5-4.5) 06/01/19 04:59 Albumin/Globulin Ratio 0.5 Ratio (1.1-2.1) L 06/01/19 04:59 Prealbumin 20.0 mg/dL (18-35.7) 05/30/19 04:23 Triglycerides 113 mg/dL (0-150) 05/30/19 04:23 Amylase 74 Units/L (25-115) 05/21/19 14:42 Lipase 110 Units/L (73-393) 05/21/19 14:42 Specimen Type Catherized urine 05/24/19 11:30 Urine Color Yellow (YELLOW) 05/24/19 11:30 Urine Appearance Hazy (CLEAR) 05/24/19 11:30 Urine pH 6.0 (5.0 - 8.0) 05/24/19 11:30 Ur Specific [place] 1.020 (1.000-1.030) 05/24/19 11:30 Urine Protein 1+ (NEGATIVE) 05/24/19 11:30 Urine Glucose (UA) 1+ (NEGATIVE) 05/24/19 11:30 Urine Ketones Negative (NEGATIVE) 05/24/19 11:30 Urine Occult Blood 1+ (NEGATIVE) 05/24/19 11:30 Urine Nitrite Negative (NEGATIVE) 05/24/19 11:30 Urine Bilirubin Negative (NEGATIVE) 05/24/19 11:30 Urine Urobilinogen Normal (NORMAL) 05/24/19 11:30 Ur Leukocyte Esterase Negative (NEGATIVE) 05/24/19 11:30 Urine RBC 0-2 /HPF (0-3) 05/24/19 11:30 Urine WBC None seen /HPF (0-5) 05/24/19 11:30 Ur Squamous Epith Cells Negative /HPF (NEGATIVE) 05/24/19 11:30 Amorphous Sediment 1+ /HPF (NEGATIVE) 05/24/19 11:30 Urine Bacteria Trace /HPF (NEGATIVE) 05/24/19 11:30 Ur Culture Indicated? No/not indicated 05/24/19 11:30 Vancomycin Trough 8.5 ug/mL (15-20) L 06/01/19 08:35 Cytology Specimen To follow 05/22/19 14:25 Tissue Pathology To follow 05/22/19 14:19 - Plan (1) Pelvic abscess Status: Acute Plan: INVANZ 1G IV DAILY, VANCOMYCIN 500MG IV DAILY, IV PEPCID, ZOFRAN 4MG IV Q8H PRN, NORCO PRN, DEMEROL 25MG IV Q6H PRN, AND HOME MEDICATIONS WERE RESUMED (2) Abdominal pain Status: Acute Qualifiers: Abdominal location: lower abdomen, unspecified Qualified Code(s): R10.30 - Lower abdominal pain, unspecified (3) Status post colostomy Status: Acute Plan: COLOSTOMY CARE AND TEACHING, CONTINUE TO MONITOR (4) Nausea & vomiting Status: Acute Qualifiers: Vomiting type: unspecified Vomiting Intractability: non-intractable Qualified Code(s): R11.2 - Nausea with vomiting, unspecified Plan: ZOFRAN 4MG IV Q8H PRN, CONTINUE TO MONITOR (5) Malnutrition Status: Acute Qualifiers: Malnutrition type: protein-calorie malnutrition Protein-calorie malnutrition severity: unspecified severity Qualified Code(s): E46 - Unspecified protein-calorie malnutrition Plan: TPN, CONTINUE TO MONITOR
[2019-06-01] MEDS: VANCOMYCIN HCL 1 G in D5W 250 ML IV 250 ML IV SCH (20:56)
[2019-06-01] MEDS: LIPOSYN III 20% 100ML 100 ML IV SCH (21:01)
[2019-06-02] MEDS: ZOFRAN INJ 4 MG VIAL IVP PRN ×2 (00:43→05:07)
[2019-06-02] MEDS: NORCO 5/325 MG TAB PO PRN (00:47)
[2019-06-02] MEDS: D5 1/2 NS 1000 ML 1,000 ML IV SCH ×2 (03:34→10:05)
[2019-06-02 06:12] LABS: BASOPHILS # (AUTO) 0.1 X10^3/uL (0.0-0.1); BASOPHILS % (AUTO) 0.6 % (0.2-1.0); EOSINOPHILS # (AUTO) 0.3 x10^3/uL (0.0-0.2); EOSINOPHILS % (AUTO) 3.5 % (0.9-2.9); HEMATOCRIT 30.2 % (36.0-47.0); HEMOGLOBIN 10.5 g/dL (12.0-16.0); LYMPHOCYTES # (AUTO) 1.4 X10^3/uL (1.3-2.9); LYMPHOCYTES % (AUTO) 14.2 % (21.0-51.0); MEAN CORPUSCULAR HEMOGLOBIN 31.5 pg (27.0-34.0); MEAN CORPUSCULAR HGB CONC 34.7 g/dL (33.0-35.0); MEAN CORPUSCULAR VOLUME 90.8 fL (80.0-100.0); MEAN PLATELET VOLUME 6.7 fL (7.4-11.0); MONOCYTES # (AUTO) 0.8 x10^3/uL (0.3-0.8); MONOCYTES % (AUTO) 8.2 % (0.0-13.0); NEUTROPHILS # (AUTO) 7.2 x10^3/uL (2.2-4.8); NEUTROPHILS % (AUTO) 73.5 % (42.0-75.0); PLATELET COUNT 461 X10^3/uL (150.0-450.0); RED BLOOD COUNT 3.32 X10^6/uL (3.5-5.4); RED CELL DISTRIBUTION WIDTH 16.8 % (11.6-16.5); WHITE BLOOD COUNT 9.8 X10^3/uL (3.6-10.0)
[2019-06-02] MEDS: CLINIMIX 5 %/20 % 1,000 ML with MVI INJ (ADULT) 10 ML, TRACE ELEMENTS INJ 10 ML, TPN EL... IV SCH ×10 (06:12→10:05)
[2019-06-02 06:30] LABS: ALANINE AMINOTRANSFERASE 21 Units/L (12-78); ALBUMIN 2.1 g/dL (3.4-5.0); ALKALINE PHOSPHATASE 182 Units/L (46-116); ASPARTATE AMINO TRANSFERASE 17 Units/L (15-37); BLOOD UREA NITROGEN 14 mg/dL (7-18); CALCIUM 8.5 mg/dL (8.5-10.1); CARBON DIOXIDE 28.5 mmol/L (21-32); CHLORIDE 100 mmol/L (98-107); COR NA(FOR HYPERGLY) 135 mmol/L (136-145); CREATININE 0.36 mg/dL (0.55-1.02); SODIUM 134 mmol/L (136-145); TOTAL PROTEIN 6.6 g/dL (6.4-8.2); eGFR NON BLACK RACES > 60 (>60)
[2019-06-02] MEDS: PROTONIX INJ 40 MG VIAL IVP SCH (08:42)
[2019-06-02] MEDS: FLAGYL IV PREMIX 500 MG BAG 500 MG/100 ML BAG IV SCH (08:43)
[2019-06-02] MEDS: MAG-OX TAB PO SCH (08:43)
[2019-06-02] MEDS: FOLIC ACID TAB 1 MG PO SCH (08:43)
[2019-06-02] MEDS: DIFLUCAN 100 MG IV (MIX by PHARMACY)* 100 MG/50 ML BAG IV SCH (08:43)
[2019-06-02] MEDS: VANCOMYCIN HCL 1 G in D5W 250 ML IV 250 ML IV SCH (08:43)
[2019-06-02] MEDS: CYMBALTA PO SCH (08:45)
[2019-06-02] MEDS: NADOLOL 10 MG PO SCH (08:45)
[2019-06-02] MEDS: LOVENOX INJ 40 MG SYR SC SCH (08:51)
[2019-06-02] MEDS ORDERED: MARINOL PO SCH (10:15)
[2019-06-02] MEDS ORDERED: ZOFRAN TAB 4 MG PO PRN (13:00)
[2019-06-02 13:03] VITALS: BP 125/59
[2019-06-03] MEDS ORDERED: DIFLUCAN PO SCH (09:00)
[2019-06-03] MEDS ORDERED: PROTONIX TAB 40 MG PO SCH (09:00)
== END 2019-06-02 13:15 | disposition home or self-care (01) | DRG 327 ==
LOC: ER 11:57 → MED/SURG 11:57 → ICU 05-24 15:47 → MED/SURG 05-29 10:00
PROVIDERS: ADMIT Internal Medicine; ATTEND Internal Medicine
DX: R26.89 Other abnormalities of gait and mobility; R10.84 Generalized abdominal pain; K25.9 Gastric ulcer, unspecified as acute or chronic, without hemorrhage or perforation; E46 Unspecified protein-calorie malnutrition; R11.2 Nausea with vomiting, unspecified; K57.20 Diverticulitis of large intestine with perforation and abscess without bleeding; R53.1 Weakness; E86.0 Dehydration
CPT/HCPCS: 36415; 36556; 71010; 71045; 74022; 74177; 80053; 80202; 81001; 82150; 82565; 83690; 83735; 84100; 84132; 84134; 84478; 85025; 88305; 88342; 96365; 96367; 96374; 96375; 97110; 97116; 97163; 97165; 97530; 99284; A4216; A4217; A4222; B5200; C9113; J3490; S0028; S0030; G0378; J0330; J1170; J1335; J1450; J1650; J1815; J2175; J2250; J2405; J2704; J2710; J2765; J3010; J3370; J3475; J3480; J7030; J7040; J7050; J7060; J7120; S5010

== ENCOUNTER 2019-06-02 13:15 | Inpatient (IN) ==
[2019-06-02] MEDS ORDERED: POTASSIUM CHLORIDE LIQ 20 MEQ UDC PO PRN (13:33)
[2019-06-02] MEDS ORDERED: MAGNESIUM SULFATE 1 GRAM/100 mL PREMIX 1 GM/100 ML BAG IV PRN (13:33)
[2019-06-02] MEDS ORDERED: POTASSIUM CHL 40 MEQ/NS 0.45% 500 ML IV PRN (13:33)
[2019-06-02] MEDS ORDERED: POTASSIUM CHL 60 MEQ/NS 0.45% 500 ML IV PRN (13:33)
[2019-06-02] MEDS ORDERED: HumuLIN R SUBCUT PRN (13:33)
[2019-06-02] MEDS ORDERED: KLOR-CON PO PRN (13:33)
[2019-06-02] MEDS ORDERED: K-DUR TAB 20 MEQ PO PRN (13:33)
[2019-06-02] MEDS ORDERED: K-RIDER 10 MEQ/NS 100 ML 10 MEQ/100 ML BAG IV PRN (13:33)
[2019-06-02] MEDS ORDERED: MICRO K EXTEN CAP 10 MEQ PO PRN (13:33)
[2019-06-02] MEDS: NORCO 5/325 MG TAB PO PRN ×3 (14:00→22:13)
[2019-06-02] MEDS: MARINOL PO SCH ×2 (14:19→21:18)
--- NOTE | 2019-06-02 14:50 | PT/OTEVAL ---
PT/OT OBJECTIVES - HISTORY Prescription: PT Consult Diagnosis: S/P Intestinal Bypass, S/P Colostomy Precautions: abdominal precaution PMH: Pertinent Dx & PMHx is significant but not limited to pelvic abscess, abdominal pain, acute dehydration, diarrhea, nausea/vomiting, anemia, hypokalemia, leukocytosis, UTI & small bowel obstruction. Prior Level of Function: Independent Other: PLOF: Per Pt.'s interview, Pt. lives alone in a one level house with 2 steps to enter (1 handrail). Pt. is independent with all self-care, functinal mobility tasks including gait w/o any AD & still drives prior to hospital admission. Pt. denied any falls. - COGNITION Mental Status: Alert, Oriented, Name, Place, Purpose Communication Status: Verbal Ability to Follow Directions: 2 Step - PAIN Abdomen Pain Scale: Moderate (5-6) Comments: just had pain meds prior to evaluation Right Posterior Sacrum Comments: nursing aware - BED MOBILITY Rolling: Independent - TRANSFERS Supine to Sit: Minimal Sit to Stand: Minimal Sit or Stand Pivot: Minimal - BALANCE Dynamic Sitting: Good Standing: Fair Static Sitting: Good Standing: Fair - NEUROMOTOR/SENSATION Tony. Lower Ext Sensation: WFL Coordination: WFL Proprioception: WFL - HAND DOMINANCE Extremity Function: Hand Dominance: Right - ROM Bilateral LE ROM: WFL Muscle Tone: WFL - STRENGTH Bilateral LE Strength Number: 3 Other comment: 3-/5 grossly graded - GAIT Pt. ambulates how many feet?: 35 Amount of Assistance Required: Supervision Type of Assistive Device: Rolling Walker PT/OT ASSESSMENT - PT Problem List: Decreased Bed Mobility, Decreased Transfers, Decreased Gait, Decreased Balance, Decreased Safety, Decreased LE Strength - PT GOALS Short Term Goals Days: 10 Mobility: improve bed mobility to independent to facilitate EOB activities Transfers: improve functional transfers on all surfaces to set up A to facilitate OOB Gait: improve gait using RW for 150 ft at set up A w/o LOB noted Balance: improve standing S/D to G/G ROM/Strength: increase B LE ms strength to 4-/5 Others: increase 30 sec sit to stand >10 times Skilled Nursing Goals Days: 20 Transfers: improve functional transfers on all surfaces to indep to facilitate OOB Gait: improve gait with or w/o AD for 200-300ft independently w/o LOB noted Balance: improve standing S/D to N/N ROM/Strength: increase B LE ms strength to 4+ to 5/5 Others: increase 30 sec sit to stand >15 times with arms across chest - PATIENT GOALS Patient/Family Goals: "to regain my strength & advance to place were I was before" Goals Discussed with Patient/Family: Yes Rehabilitation Potential: good Justification for Potential: higher PLOF, able to participate, motivated Weakness and Barriers: Pain - PLAN Suggested Treatment Plan: Bed Mobility Training, Therapeutic Activity, Gait Training, Neuro Re-education, Therapeutic Ex with HEP, Patient Education, Family Education, Other - FREQUENCY AND DURATION PT: 6x/wk x hosp stay Expected Continuation of Care at Discharge: Determined on Progress
--- NOTE | 2019-06-02 16:28 | PT/OTEVAL ---
PT/OT OBJECTIVES - HISTORY Prescription: OT consult Diagnosis: S/P Intestinal Bypass, S/P Colostomy Precautions: abdominal precaution PMH: Pertinent Dx & PMHx is significant but not limited to pelvic abscess, abdominal pain, acute dehydration, diarrhea, nausea/vomiting, anemia, hypokalemia, leukocytosis, UTI & small bowel obstruction. Other: Prior to hospitalization, patient lives alone in a single level home with was 2 steps. Pt reported being independent with ADLs and uses walker for functional mobility. - COGNITION Mental Status: Alert, Oriented, Name, Date, Place, Purpose Communication Status: Verbal, Nonverbal Ability to Follow Directions: 3 Step - PAIN Abdomen Pain Scale: Mild (3-4) Comments: just had pain meds prior to evaluation - TRANSFERS Supine to Sit: Minimal Sit to Stand: Minimal - ADL'S Feeding: Independent Grooming: Independent Upper Body ADL: Supervision Lower Body ADL: Minimum Toileting: Minimum - BALANCE Dynamic Sitting: Good Standing: Fair Static Sitting: Good Standing: Fair - NEUROMOTOR/SENSATION Tony. Lower Ext Sensation: WFL Coordination: WFL Proprioception: WFL Tony. Upper Ext Sensation: WFL Coordination: WFL Proprioception: WFL - ROM Bilateral UE ROM: WFL Muscle Tone: WFL - STRENGTH Bilateral UE Strength Number: 3 Other comment: 3+/5 Bilateral LE Strength Number: 3 Other comment: 3-/5 grossly graded PT/OT ASSESSMENT - OT Problem List: Decreased Mobility ADL's, Decreased Dressing, Decreased Bathing, Decreased UE Strength, Other Other, comment: decreased functional activity tolerance - PT GOALS Short Term Goals Days: 10 Mobility: improve bed mobility to independent to facilitate EOB activities Transfers: improve functional transfers on all surfaces to set up A to facilitate OOB Gait: improve gait using RW for 150 ft at set up A w/o LOB noted Balance: improve standing S/D to G/G ROM/Strength: increase B LE ms strength to 4-/5 Others: increase 30 sec sit to stand >10 times [employer] Assistant [employer] Goals Days: 20 Transfers: improve functional transfers on all surfaces to indep to facilitate OOB Gait: improve gait with or w/o AD for 200-300ft independently w/o LOB noted Balance: improve standing S/D to N/N ROM/Strength: increase B LE ms strength to 4+ to 5/5 Others: increase 30 sec sit to stand >15 times with arms across chest - OT GOALS [facility] Goals Days: 10 Mobility for ADL's: Pt will improve toilet t/f independently with AE as needed Safety Awareness: Pt will demonstrate G safety awareness to decrease fall risk Dressing: Pt will perform UB/LB dressing independently with AE as needed. Bathing: Pt will improve bathing skills to independent level Upper Ext. Strength/Use: Pt will increase BUE strength to 5/5 to increase ADL,t/f and mobility Other: Pt will imporve F.A.T. to G to increase efficiency with ADL Short Term Goals Days: 20 Mobility for ADL's: Pt will improve toilet t/f w/setup A with AE as needed Dressing: Pt will perform UB/LB dressing w/setup A with AE as needed. Bathing: Pt will improve bathing skills to setup A Upper Ext. Strength/Use: Pt will increase BUE strength to 4/5 to increase ADL,t/f and mobility Other: Pt will imporve F.A.T. to F+ to increase efficiency with ADL - PATIENT GOALS Patient/Family Goals: return to PLOF Goals Discussed with Patient/Family: Yes Rehabilitation Potential: good Justification for Potential: high level of PLOF, G motivation - PLAN Suggested Treatment Plan: Therapeutic Activity, Self Care Training, Neuro Re- education, Therapeutic Ex with HEP, Home Management, Patient Education, Family Education - FREQUENCY AND DURATION OT: 5x a week x hospital Expected Continuation of Care at Discharge: Home
[2019-06-02] MEDS: D5 1/2 NS 1000 ML 1,000 ML IV SCH (17:09)
[2019-06-02] MEDS: CLINIMIX 5 %/20 % 1,000 ML with MVI INJ (ADULT) 10 ML, TRACE ELEMENTS INJ 10 ML, TPN EL... IV SCH ×12 (18:05→21:16)
[2019-06-02 18:07] VITALS: BMI 14.9
[2019-06-02] MEDS ORDERED: MAALOX or MYLANTA PO PRN (20:15)
[2019-06-02] MEDS: SNACK - Diabetic Appropriate PO SCH (20:45)
[2019-06-02] MEDS: ZOFRAN TAB 4 MG PO PRN (21:17)
[2019-06-02] MEDS: MAG-OX TAB PO SCH (21:17)
[2019-06-02] MEDS: LIPOSYN III 20% 100ML 100 ML IV SCH (21:51)
[2019-06-03] MEDS: D5 1/2 NS 1000 ML 1,000 ML IV SCH ×4 (02:10→18:09)
[2019-06-03] MEDS: ZOFRAN TAB 4 MG PO PRN ×3 (04:41→18:25)
[2019-06-03] MEDS ORDERED: DEXTROSE 10% 1,000 ML IV PRN (05:12)
[2019-06-03] MEDS: CLINIMIX 5 %/20 % 1,000 ML with MVI INJ (ADULT) 10 ML, TRACE ELEMENTS INJ 10 ML, TPN EL... IV SCH ×24 (05:31→21:25)
[2019-06-03] MEDS: NORCO 5/325 MG TAB PO PRN (05:32)
[2019-06-03 06:23] LABS: BASOPHILS # (AUTO) 0.1 X10^3/uL (0.0-0.1); BASOPHILS % (AUTO) 0.4 % (0.2-1.0); EOSINOPHILS # (AUTO) 0.2 x10^3/uL (0.0-0.2); HEMATOCRIT 30.3 % (36.0-47.0); HEMOGLOBIN 10.3 g/dL (12.0-16.0); LYMPHOCYTES # (AUTO) 1.2 X10^3/uL (1.3-2.9); LYMPHOCYTES % (AUTO) 10.2 % (21.0-51.0); MEAN CORPUSCULAR HEMOGLOBIN 30.7 pg (27.0-34.0); MEAN CORPUSCULAR HGB CONC 33.9 g/dL (33.0-35.0); MEAN CORPUSCULAR VOLUME 90.7 fL (80.0-100.0); MONOCYTES % (AUTO) 8.9 % (0.0-13.0); NEUTROPHILS # (AUTO) 9.1 x10^3/uL (2.2-4.8); NEUTROPHILS % (AUTO) 78.5 % (42.0-75.0); PLATELET COUNT 491 X10^3/uL (150.0-450.0); RED BLOOD COUNT 3.34 X10^6/uL (3.5-5.4); RED CELL DISTRIBUTION WIDTH 16.6 % (11.6-16.5); WHITE BLOOD COUNT 11.5 X10^3/uL (3.6-10.0)
[2019-06-03 06:37] LABS: PREALBUMIN 23.9 mg/dL (18-35.7)
[2019-06-03 06:47] LABS: ALANINE AMINOTRANSFERASE 23 Units/L (12-78); ALBUMIN 2.1 g/dL (3.4-5.0); ALKALINE PHOSPHATASE 188 Units/L (46-116); ASPARTATE AMINO TRANSFERASE 20 Units/L (15-37); BLOOD UREA NITROGEN 14 mg/dL (7-18); CALCIUM 8.4 mg/dL (8.5-10.1); CARBON DIOXIDE 28.8 mmol/L (21-32); CHLORIDE 98 mmol/L (98-107); COR CA(FOR HYPOALB) 9.9 mg/dL (8.5-10.1); COR NA(FOR HYPERGLY) 133 mmol/L (136-145); CREATININE 0.31 mg/dL (0.55-1.02); MAGNESIUM 1.9 mg/dL (1.7-2.9); PHOSPHORUS 0.7 mg/dL (2.6-4.7); SODIUM 132 mmol/L (136-145); TOTAL PROTEIN 6.7 g/dL (6.4-8.2); TRIGLYCERIDES 137 mg/dL (0-150); eGFR NON BLACK RACES > 60 (>60)
--- NOTE | 2019-06-03 09:21 | DR.UPDATE ---
H&P Update History and Physical Update: History and Physical reviewed and patient examined. Changes noted: Yes with the following: IS BEING TREATED FOR PROTEIN DEFICIENCY, MALNUTRITION, ABDOMINAL PAIN, AND N/V. SHE IS DAY 10 STATUS POST EXPLORATORY LAP, LYSIS OF EXTENSIVE ADHESIONS, GASTRO JEJUNOSTOMY, AND COMPLETE DIVERTING COLOSTOMY. SHE WAS CHANGED TO SWINGBED STATUS FOR PERENTERAL TPN NUTRITION, IV ANTIBIOTICS, AND PHYSICAL THERAPY. WE WILL RESUME HER PREVIOUS MEDICACTION AND MONITOR LABS PER THE TPN PROTOCOL. PHYSICAL THERAPY WILL WORK WITH PATIENT DAILY. WE WILL EDUCATE PATIENT ON COLOSTOMY CARE WHILE SHE IS HERE. Prescription drug monitoring program results: PDMP was not reviewed H&P Reviewed: Yes Patient was examined?: Yes
[2019-06-03] MEDS: NADOLOL 10 MG PO SCH (10:01)
[2019-06-03] MEDS: DIFLUCAN PO SCH (10:02)
[2019-06-03] MEDS: MARINOL PO SCH ×2 (10:02→21:26)
[2019-06-03] MEDS: LOVENOX INJ 40 MG SYR SC SCH (10:03)
[2019-06-03] MEDS: MAG-OX TAB PO SCH ×2 (10:03→21:29)
[2019-06-03] MEDS: PROTONIX TAB 40 MG PO SCH (10:03)
[2019-06-03] MEDS: FOLIC ACID TAB 1 MG PO SCH (10:03)
[2019-06-03] MEDS: CYMBALTA PO SCH (10:06)
[2019-06-03] MEDS: PHENERGAN INJ 25 MG IM PRN (15:03)
[2019-06-03] MEDS: SNACK - Diabetic Appropriate PO SCH (21:25)
[2019-06-03] MEDS: LIPOSYN III 20% 100ML 100 ML IV SCH (21:30)
[2019-06-04] MEDS: PHENERGAN INJ 25 MG IM PRN (00:15)
[2019-06-04] MEDS: D5 1/2 NS 1000 ML 1,000 ML IV SCH ×4 (02:37→18:18)
[2019-06-04] MEDS: CLINIMIX 5 %/20 % 1,000 ML with MVI INJ (ADULT) 10 ML, TRACE ELEMENTS INJ 10 ML, TPN EL... IV SCH ×30 (02:50→22:59)
[2019-06-04 05:30] LABS: ALANINE AMINOTRANSFERASE 23 Units/L (12-78); ALBUMIN 2.2 g/dL (3.4-5.0); ALKALINE PHOSPHATASE 224 Units/L (46-116); ASPARTATE AMINO TRANSFERASE 19 Units/L (15-37); BLOOD UREA NITROGEN 21 mg/dL (7-18); CALCIUM 8.8 mg/dL (8.5-10.1); CARBON DIOXIDE 27.7 mmol/L (21-32); CHLORIDE 94 mmol/L (98-107); COR CA(FOR HYPOALB) 10.2 mg/dL (8.5-10.1); COR NA(FOR HYPERGLY) 131 mmol/L (136-145); CREATININE 0.52 mg/dL (0.55-1.02); SODIUM 130 mmol/L (136-145); TOTAL PROTEIN 7.3 g/dL (6.4-8.2); eGFR NON BLACK RACES > 60 (>60)
[2019-06-04 05:35] LABS: BASOPHILS # (AUTO) 0.1 X10^3/uL (0.0-0.1); BASOPHILS % (AUTO) 0.3 % (0.2-1.0); EOSINOPHILS # (AUTO) 0.1 x10^3/uL (0.0-0.2); EOSINOPHILS % (AUTO) 0.2 % (0.9-2.9); HEMATOCRIT 31.3 % (36.0-47.0); HEMOGLOBIN 10.6 g/dL (12.0-16.0); LYMPHOCYTES # (AUTO) 1.5 X10^3/uL (1.3-2.9); LYMPHOCYTES % (AUTO) 6.3 % (21.0-51.0); MEAN CORPUSCULAR HEMOGLOBIN 30.7 pg (27.0-34.0); MEAN CORPUSCULAR HGB CONC 33.9 g/dL (33.0-35.0); MEAN CORPUSCULAR VOLUME 90.4 fL (80.0-100.0); MEAN PLATELET VOLUME 6.9 fL (7.4-11.0); MONOCYTES # (AUTO) 1.3 x10^3/uL (0.3-0.8); MONOCYTES % (AUTO) 5.5 % (0.0-13.0); NEUTROPHILS # (AUTO) 21.1 x10^3/uL (2.2-4.8); NEUTROPHILS % (AUTO) 87.7 % (42.0-75.0); PLATELET COUNT 519 X10^3/uL (150.0-450.0); RED BLOOD COUNT 3.47 X10^6/uL (3.5-5.4); RED CELL DISTRIBUTION WIDTH 17.1 % (11.6-16.5)
[2019-06-04 05:39] LABS: BAND NEUTROPHILS % 2 % (0-10); PLATELET MORPHOLOGY COMMENT NORMAL (NORMAL)
[2019-06-04] MEDS: DIFLUCAN PO SCH (09:32)
[2019-06-04] MEDS: FOLIC ACID TAB 1 MG PO SCH (09:32)
[2019-06-04] MEDS: LOVENOX INJ 40 MG SYR SC SCH (09:32)
[2019-06-04] MEDS: MAG-OX TAB PO SCH ×2 (09:33→20:17)
[2019-06-04] MEDS: PROTONIX TAB 40 MG PO SCH (09:33)
[2019-06-04] MEDS: CYMBALTA PO SCH (09:33)
[2019-06-04] MEDS: NADOLOL 10 MG PO SCH (09:35)
[2019-06-04] MEDS ORDERED: VANCOMYCIN HCL 500 MG in NS 100 ML IV 100 ML IV SCH (10:00)
[2019-06-04] MEDS ORDERED: PHARMACY CONSULT - VANCOMYCIN XX SCH (10:00)
--- NOTE | 2019-06-04 10:27 | RAD ---
HISTORYsob,fever elevated wbcSTUDYCHEST, 1 VIEWCOMPARISONFINDINGSThe trachea is midline. The cardiac silhouette is unremarkable. No change in positioning of right-sided central venous catheter tip terminating within the right atrium.The lungs demonstrate interstitial coarsening, upper lobe predominant increased lucency and hyperexpansion which are consistent with changes associated with COPD.Patchy opacity within left lung base consistent with developing infiltrate/pneumonia. No pleural effusion or pneumothorax.[No acute osseous abnormality]IMPRESSIONCOPD with focal airspace consolidation within left lower lobe consistent with developing pneumonia. Radiographic follow-up to ensure resolution is recommended.Electronically signed by: JHONATAN BARBOSA (Jun 04, 2019 10:25:42)
[2019-06-04] MEDS: MARINOL PO SCH ×2 (10:36→20:17)
[2019-06-04] MEDS: LEVAQUIN PREMIX IV 500 MG 500 MG/100 ML BAG IV SCH (11:00)
[2019-06-04] MEDS: VANCOMYCIN HCL 1 G in NS 250 ML IV 250 ML IV SCH ×2 (11:00→20:18)
--- NOTE | 2019-06-04 13:41 | RAD ---
HISTORYFever [id number]/2020FINDINGSThere is slight gaseous distention of scattered bowel segments . No focal ileus or obstruction is suggested. Surgical clips are noted in the abdominal midline. Ther e is diffuse increased density in the pelvis. A left paralumbar densities noted at the level of L5. S urgical christopher are noted in the left abdomen.IMPRESSIONNo significant or acute intestinal gas patter n abnormality. Postsurgical findings. Diffuse increase in density in the pelvis may represent previou sly documented abscess, distended bladder or fluid-filled bowel loops. Left paralumbar density is lik wanda residual contrast material rather than urinary stone.Electronically signed by: JOE DICKEY (Tyler n 2019 13:40:27)
[2019-06-04] MEDS: ZOFRAN TAB 4 MG PO PRN ×2 (17:30→23:01)
[2019-06-04] MEDS: SNACK - Diabetic Appropriate PO SCH (20:15)
[2019-06-04] MEDS: LIPOSYN III 20% 100ML 100 ML IV SCH (20:19)
[2019-06-04] MEDS: DUONEB 0.5 MG/3 MG (3 mL) NEB SCH (21:36)
[2019-06-05] MEDS: NORCO 5/325 MG TAB PO PRN ×3 (02:07→19:44)
[2019-06-05] MEDS: D5 1/2 NS 1000 ML 1,000 ML IV SCH ×3 (02:10→18:18)
[2019-06-05] MEDS: PHENERGAN INJ 25 MG IM PRN ×2 (03:14→20:51)
[2019-06-05 05:45] LABS: BASOPHILS # (AUTO) 0.1 X10^3/uL (0.0-0.1); BASOPHILS % (AUTO) 0.5 % (0.2-1.0); EOSINOPHILS # (AUTO) 0.1 x10^3/uL (0.0-0.2); EOSINOPHILS % (AUTO) 0.5 % (0.9-2.9); HEMATOCRIT 26.4 % (36.0-47.0); LYMPHOCYTES # (AUTO) 0.8 X10^3/uL (1.3-2.9); LYMPHOCYTES % (AUTO) 6.8 % (21.0-51.0); MEAN CORPUSCULAR HEMOGLOBIN 31.1 pg (27.0-34.0); MEAN CORPUSCULAR HGB CONC 34.2 g/dL (33.0-35.0); MEAN CORPUSCULAR VOLUME 90.8 fL (80.0-100.0); MEAN PLATELET VOLUME 7.2 fL (7.4-11.0); MONOCYTES # (AUTO) 0.5 x10^3/uL (0.3-0.8); MONOCYTES % (AUTO) 4.1 % (0.0-13.0); NEUTROPHILS # (AUTO) 10.3 x10^3/uL (2.2-4.8); NEUTROPHILS % (AUTO) 88.1 % (42.0-75.0); PLATELET COUNT 369 X10^3/uL (150.0-450.0); RED BLOOD COUNT 2.91 X10^6/uL (3.5-5.4); RED CELL DISTRIBUTION WIDTH 16.8 % (11.6-16.5)
[2019-06-05 05:54] LABS: WHITE BLOOD COUNT 11.7 X10^3/uL (3.6-10.0)
[2019-06-05 06:04] LABS: ALANINE AMINOTRANSFERASE 34 Units/L (12-78); ALBUMIN 1.8 g/dL (3.4-5.0); ALKALINE PHOSPHATASE 198 Units/L (46-116); ASPARTATE AMINO TRANSFERASE 36 Units/L (15-37); BLOOD UREA NITROGEN 17 mg/dL (7-18); CALCIUM 7.8 mg/dL (8.5-10.1); CARBON DIOXIDE 25.9 mmol/L (21-32); CHLORIDE 93 mmol/L (98-107); COR CA(FOR HYPOALB) 9.6 mg/dL (8.5-10.1); COR NA(FOR HYPERGLY) 126 mmol/L (136-145); CREATININE 0.41 mg/dL (0.55-1.02); TOTAL PROTEIN 6.2 g/dL (6.4-8.2); eGFR NON BLACK RACES > 60 (>60)
[2019-06-05 06:11] LABS: SODIUM 125 mmol/L (136-145)
--- NOTE | 2019-06-05 07:38 | RAD ---
HISTORYSOBSTUDYPortable AP [id number]/2020FINDINGSContinued normal heart size. Essentially clear right lung. Slight in terval increase in left lower lobe infiltrate. No discrete mass, edema or pleural fluid. Stable posit ion of right jugular line.IMPRESSIONIncreasing left lower lobe infiltrate/pneumonia.Electronically si gned by: JOE DICKEY (Jun 05, 2019 07:37:28)
[2019-06-05] MEDS: DUONEB 0.5 MG/3 MG (3 mL) NEB SCH ×4 (08:34→20:25)
[2019-06-05] MEDS: PROTONIX TAB 40 MG PO SCH (09:04)
[2019-06-05] MEDS: LEVAQUIN PREMIX IV 500 MG 500 MG/100 ML BAG IV SCH (09:04)
[2019-06-05] MEDS: MAG-OX TAB PO SCH ×2 (09:04→20:51)
[2019-06-05] MEDS: DIFLUCAN PO SCH (09:04)
[2019-06-05] MEDS: ZOFRAN TAB 4 MG PO PRN ×2 (09:04→19:42)
[2019-06-05] MEDS: CYMBALTA PO SCH (09:04)
[2019-06-05] MEDS: FOLIC ACID TAB 1 MG PO SCH (09:04)
[2019-06-05] MEDS: LOVENOX INJ 40 MG SYR SC SCH (09:05)
[2019-06-05] MEDS: VANCOMYCIN HCL 1 G in NS 250 ML IV 250 ML IV SCH (10:44)
[2019-06-05] MEDS: MARINOL PO SCH (10:45)
[2019-06-05] MEDS: NADOLOL 10 MG PO SCH (10:45)
--- NOTE | 2019-06-05 12:54 | RAD ---
HISTORYAbdominal painSTUDYSupine KUBCOMPARISONAugust 2018FINDINGSThere are some surgical christopher in the right lower abdomen and there is an apparent colostomy in the right mid quadrant. The bowel gas pattern is unremarkable. There are apparent sutures anastomosis projecting in the left mid abdomen.IMPRESSIONNo acute disease demonstrated.Electronically signed by: PABLITO LUCAS (Jun 05, 2019 12:52:49)
[2019-06-05 14:47] LABS: PREALBUMIN 23.4 mg/dL (18-35.7)
[2019-06-05] MEDS ORDERED: LEVAQUIN PREMIX IV 500 MG 500 MG/100 ML BAG IV SCH (17:00)
[2019-06-05] MEDS: CLINIMIX 5 %/20 % 1,000 ML with MVI INJ (ADULT) 10 ML, TRACE ELEMENTS INJ 10 ML, TPN EL... IV SCH ×12 (18:17→20:51)
[2019-06-05] MEDS: SNACK - Diabetic Appropriate PO SCH (20:30)
[2019-06-05] MEDS ORDERED: PHARMACY COMMENT IV NR (20:30)
[2019-06-05] MEDS: LIPOSYN III 20% 100ML 100 ML IV SCH (20:49)
[2019-06-05] MEDS: VANCOMYCIN HCL PO SCH (20:51)
[2019-06-05] MEDS: TYLENOL 325 MG TAB PO PRN (20:52)
--- NOTE | 2019-06-05 21:18 | PCM.PROG ---
Progress Note - Progress Note for Day of Date of Exam: 06/05/19 - Subjective Subjective: IS UNDER SWINGBED STATUS FOR IV NUTRITION, IV ANTIBIOTICS, AND PHYSICAL THERAPY. SHE STATUS POST EXPLORATORY LAP, LYSIS OF EXTENSIVE ADHESIONS, GASTRO JEJUNOSTOMY, AND COMPLETE DIVERTING COLOSTOMY. TODAY, SHE IS ALERT AND ORIENTED, LYING IN BED ON MORNING ROUNDS. SHE REPORTS DIARRHEA, WEAKNESS, SHORTNESS OF BREATH, AND COUGH THIS MORNING. SHE DENIES NAUSEA OR VOMITING TODAY. STAFF REPORTS THAT SHE RAN A FEVER THROUGHOUT THE NIGHT. ON EXAMINATION, HEART IS REGULAR IN RATE AND RHYTHM. BILATERAL LUNGS ARE NOTED WITH DIMINISHED LUNG SOUNDS THROUGHOUT. ABDOMEN IS FLAT, SOFT, AND NOTED WITH DIFFUSE TENDERNESS. HYPOACTIVE BOWEL SOUNDS ARE NOTED IN ALL QUARANTS. THERE IS A COLOSTOMY NOTED. STAFF REPORTS THAT IT IS FUNCTIONING WELL. HER VITALS THIS MORNING ARE: 97.4-92-20-99%-118/58. LABS WERE OBTAINED. ABNORMAL LAB VALUES INCLUDE THE FOLLOWING: WBC DECREASED FROM 24.0 YESTERDAY TO 11.7, RBC 2.91, HGB 9.0, HCT 26.4, SODIUM 125, CHLORIDE 93, CREATININE 0.41, GLUCOSE 138, CALCIUM 7.8, TOTAL BILI 0.10, ALK PHOS 198, TOTAL PROTEIN 6.2, ALBUMIN 1.8. A CHEST XRAY WAS OBTAINED TODAY AND REVEALED: Increasing left lower lobe infiltrate/pneumonia. SHE IS CURRENTLY RECEIVING: TPN, LEVAQUIN 750MG IV DAILY, VANCOMYCIN IV DAILY, IV PEPCID, PROTONIX, LIPIDS, HUMULIN R SLIDING SCALE, ZO NURIS PRN, NORCO PRN, DUONEBS, AND THE POTASSIUM AND MAGNESIUM PROTOCOLS. HOME MEDICATIONS WERE RESUMED. SHE IS ON A SOFT DIET. WE WILL CONTINUE WITH CURRENT PLAN OF CARE TODAY AND OBTAIN STOOL STUDIES. PHYSICAL THERAPY WILL WORK WITH PATIENT. OTHERWISE, WE PLAN TO FOLLOW UP WITH AM LABS AND CONTINUE TO MONITOR. - Past Medical Family Social History Past Med/Fam/Surg Hx: No changes since H&P Allergies: Allergies lorazepam [From Ativan] Allergy (Verified 05/22/19 06:02) morphine Allergy (Verified 05/21/19 12:02) Penicillins Allergy (Verified 05/21/19 12:02) - Review of Systems ROS: No change since H&P - Vital Signs and I&O's Vital Signs: Temperature 101.0 F Pulse Rate [Apical] 116 Pulse Rate 110 Respiratory Rate 16 Blood Pressure [Left Arm] 118/58 Blood Pressure [Right Arm] 122/58 O2 Sat by Pulse Oximetry 96 Intake and Output: Intake & Output 06/03/19 06/04/19 06/05/19 06/06/19 11:59 11:59 11:59 11:59 Intake Total 5023 / 5023 2265 / 2265 2840 / 2840 270 / 270 Output Total 1300 / 1300 150 / 150 Balance 3723 / 3723 2265 / 2265 2690 / 2690 270 / 270 - Physical Exam Oriented: Normal Eyes: Normal Ear: Normal Nose: Normal Throat: Normal Respiratory: Normal Cardiovascular: Normal : Normal Auscultation: Bowel Sounds: Normal Palpation: Normal Tenderness: Diffuse, Mild Skin: Normal Musculoskeletal: Normal Psychiatric: Normal Mood Description: Calm Affect: Normal Speech Pattern: Clear, Appropriate - Laboratory and Diagnostics Result Diagrams: 06/05/19 05:06 06/05/19 05:06 Labs: Laboratory WBC 11.7 X10^3/uL (3.6-10.0) H D 06/05/19 05:06 RBC 2.91 X10^6/uL (3.5-5.4) L 06/05/19 05:06 Hgb 9.0 g/dL (12.0-16.0) L 06/05/19 05:06 Hct 26.4 % (36.0-47.0) L 06/05/19 05:06 MCV 90.8 fL (80.0-100.0) 06/05/19 05:06 MCH 31.1 pg (27.0-34.0) 06/05/19 05:06 MCHC 34.2 g/dL (33.0-35.0) 06/05/19 05:06 RDW 16.8 % (11.6-16.5) H 06/05/19 05:06 Plt Count 369 X10^3/uL (150.0-450.0) 06/05/19 05:06 Plt Count Comment Increased (ADEQUATE) A 06/04/19 04:50 MPV 7.2 fL (7.4-11.0) L 06/05/19 05:06 Neut % (Auto) 88.1 % (42.0-75.0) H 06/05/19 05:06 Lymph % (Auto) 6.8 % (21.0-51.0) L 06/05/19 05:06 [place] % (Auto) 4.1 % (0.0-13.0) 06/05/19 05:06 Eos % (Auto) 0.5 % (0.9-2.9) L 06/05/19 05:06 Baso % (Auto) 0.5 % (0.2-1.0) 06/05/19 05:06 Neut # (Auto) 10.3 x10^3/uL (2.2-4.8) H 06/05/19 05:06 Lymph # (Auto) 0.8 X10^3/uL (1.3-2.9) L 06/05/19 05:06 [place] # (Auto) 0.5 x10^3/uL (0.3-0.8) 06/05/19 05:06 Eos # (Auto) 0.1 x10^3/uL (0.0-0.2) 06/05/19 05:06 Baso # (Auto) 0.1 X10^3/uL (0.0-0.1) 06/05/19 05:06 Absolute Nucleated RBC 0.0 /100WBC 06/05/19 05:06 Total Counted 100 06/04/19 04:50 Neutrophils % (Manual) 87 % (39-76) H 06/04/19 04:50 Band Neutrophils % 2 % (0-10) 06/04/19 04:50 Lymphocytes % (Manual) 7 % (13-43) L 06/04/19 04:50 Monocytes % (Manual) 4 % (4-9) 06/04/19 04:50 Plt Morphology Comment Normal (NORMAL) 06/04/19 04:50 RBC Morphology Normal (NORMAL) 06/04/19 04:50 Sodium 125 mmol/L (136-145) L* 06/05/19 05:06 Corrected Sodium 126 mmol/L (136-145) L 06/05/19 05:06 Potassium 4.1 mmol/L (3.5-5.1) 06/05/19 05:06 Chloride 93 mmol/L (98-107) L 06/05/19 05:06 Carbon Dioxide 25.9 mmol/L (21-32) 06/05/19 05:06 BUN 17 mg/dL (7-18) 06/05/19 05:06 Creatinine 0.41 mg/dL (0.55-1.02) L 06/05/19 05:06 Est GFR (MDRD) Af Amer > 60 (>60) 06/05/19 05:06 Est GFR (MDRD) Non-Af > 60 (>60) 06/05/19 05:06 Glucose 138 mg/dL (65-99) H 06/05/19 05:06 POC Glucose (mg/dL) 136 mg/dL (65-99) H 06/05/19 05:13 Calcium 7.8 mg/dL (8.5-10.1) L 06/05/19 05:06 Corrected Calcium 9.6 mg/dL (8.5-10.1) 06/05/19 05:06 Phosphorus 0.7 mg/dL (2.6-4.7) L 06/03/19 05:20 Magnesium 1.9 mg/dL (1.7-2.9) 06/03/19 05:20 Total Bilirubin 0.10 mg/dL (0.2-1.0) L 06/05/19 05:06 AST 36 Units/L (15-37) 06/05/19 05:06 ALT 34 Units/L (12-78) 06/05/19 05:06 Alkaline Phosphatase 198 Units/L (46-116) H 06/05/19 05:06 Total Protein 6.2 g/dL (6.4-8.2) L 06/05/19 05:06 Albumin 1.8 g/dL (3.4-5.0) L 06/05/19 05:06 Globulin 4.4 g/dL (2.5-4.5) 06/05/19 05:06 Albumin/Globulin Ratio 0.4 Ratio (1.1-2.1) L 06/05/19 05:06 Prealbumin 23.4 mg/dL (18-35.7) 06/04/19 04:50 Triglycerides 137 mg/dL (0-150) 06/03/19 05:20 Stl C. diff Tox B Gene Positive (NEGATIVE) A 06/05/19 14:15 Stl C. diff [id number] Negative (NEGATIVE) 06/05/19 14:15 C. difficile Toxin A&B Positive (NEGATIVE) A 06/05/19 14:15 Influenza Type A (PCR) Negative (NEGATIVE) 06/04/19 14:50 Influenza Type B (PCR) Negative (NEGATIVE) 06/04/19 14:50 - Plan (1) Pneumonia Status: Acute Qualifiers: Laterality: left Lung location: lower lobe of lung Plan: IF VANCOMYCIN, IV LEVAQUIN, RESPIRATORY TX, SUPPLEMENTAL OXYGEN, CONTINUE TO MONITOR (2) Malnutrition Status: Acute Qualifiers: Malnutrition type: protein-calorie malnutrition Protein-calorie malnutrition severity: moderate Qualified Code(s): E44.0 - Moderate protein- calorie malnutrition Plan: IV FLUIDS, IV TPN, IV LIPIDS, CONTINUE TO MONITOR (3) Diarrhea Status: Acute Qualifiers: Diarrhea type: presumed infectious Qualified Code(s): R19.7 - Diarrhea, unspecified Plan: STOOL STUDIES, CONTINUE TO MONITOR (4) Status post colostomy Status: Acute
[2019-06-06] MEDS: TYLENOL 325 MG TAB PO PRN (00:58)
[2019-06-06] MEDS: D5 1/2 NS 1000 ML 1,000 ML IV SCH (02:05)
[2019-06-06] MEDS ORDERED: OFIRMEV IV 1000 MG VIAL 500 MG/50 ML VIAL IV PRN (02:23)
[2019-06-06] MEDS: VANCOMYCIN HCL PO SCH ×2 (02:37→10:13)
[2019-06-06] MEDS: CLINIMIX 5 %/20 % 1,000 ML with MVI INJ (ADULT) 10 ML, TRACE ELEMENTS INJ 10 ML, TPN EL... IV SCH ×6 (03:35)
--- NOTE | 2019-06-06 06:27 | RAD ---
HISTORYShortness of breathSTUDYCHEST, 1 [id number]/20/2020FINDINGSThe heart is within normal limits in size. The sebastian are normal. The lungs are well inflated. The right lung and left upper lobes are clear. Right lower lobe lung infiltrate is slightly improved. No pleural effusions are identified. Bony thorax is unremarkable. There is a right IJ line with its tip in the right atrium.IMPRESSIONSome improvement left lower lobe pneumoniaElectronically signed by: MARCUS BUCHANAN (Jun 06, 2019 06:26:52)
[2019-06-06 06:30] LABS: BASOPHILS % (AUTO) 0.5 % (0.2-1.0); EOSINOPHILS % (AUTO) 0.2 % (0.9-2.9); HEMATOCRIT 31.1 % (36.0-47.0); HEMOGLOBIN 10.7 g/dL (12.0-16.0); LYMPHOCYTES # (AUTO) 0.7 X10^3/uL (1.3-2.9); LYMPHOCYTES % (AUTO) 6.6 % (21.0-51.0); MEAN CORPUSCULAR HEMOGLOBIN 30.7 pg (27.0-34.0); MEAN CORPUSCULAR HGB CONC 34.5 g/dL (33.0-35.0); MEAN CORPUSCULAR VOLUME 88.9 fL (80.0-100.0); MEAN PLATELET VOLUME 7.5 fL (7.4-11.0); MONOCYTES # (AUTO) 0.6 x10^3/uL (0.3-0.8); MONOCYTES % (AUTO) 6.4 % (0.0-13.0); NEUTROPHILS # (AUTO) 8.8 x10^3/uL (2.2-4.8); NEUTROPHILS % (AUTO) 86.3 % (42.0-75.0); PLATELET COUNT 410 X10^3/uL (150.0-450.0); RED CELL DISTRIBUTION WIDTH 16.9 % (11.6-16.5); WHITE BLOOD COUNT 10.1 X10^3/uL (3.6-10.0)
[2019-06-06 07:07] LABS: BLOOD UREA NITROGEN 18 mg/dL (7-18); CALCIUM 8.3 mg/dL (8.5-10.1); CARBON DIOXIDE 24.3 mmol/L (21-32); CHLORIDE 89 mmol/L (98-107); COR NA(FOR HYPERGLY) 124 mmol/L (136-145); CREATININE 0.49 mg/dL (0.55-1.02); MAGNESIUM 1.9 mg/dL (1.7-2.9); TRIGLYCERIDES 103 mg/dL (0-150); eGFR NON BLACK RACES > 60 (>60)
[2019-06-06 07:13] LABS: BAND NEUTROPHILS % 4 % (0-10)
[2019-06-06 07:14] LABS: PLATELET MORPHOLOGY COMMENT NORMAL (NORMAL); SODIUM 123 mmol/L (136-145)
[2019-06-06] MEDS ORDERED: LEVAQUIN PREMIX IV 750 MG 750 MG/150 ML BAG IV SCH (09:00)
[2019-06-06] MEDS ORDERED: MARINOL PO SCH ×2 (09:00→10:15)
[2019-06-06] MEDS: DUONEB 0.5 MG/3 MG (3 mL) NEB SCH (09:17)
[2019-06-06 09:56] VITALS: BP 104/59
[2019-06-06] MEDS: CYMBALTA PO SCH (10:13)
[2019-06-06] MEDS: PROTONIX TAB 40 MG PO SCH (10:13)
[2019-06-06] MEDS: FOLIC ACID TAB 1 MG PO SCH (10:13)
[2019-06-06] MEDS: NADOLOL 10 MG PO SCH (10:13)
[2019-06-06] MEDS: MAG-OX TAB PO SCH (10:13)
[2019-06-06] MEDS: LOVENOX INJ 40 MG SYR SC SCH (10:15)
[2019-06-06] MEDS ORDERED: VSL#3 PO SCH (10:30)
== END 2019-06-06 09:00 | disposition short-term general hospital (02) | DRG 640 ==
LOC: MED/SURG 13:15
PROVIDERS: ADMIT Internal Medicine; ATTEND Internal Medicine
DX: Z48.815 Encounter for surgical aftercare following surgery on the digestive system; J18.9 Pneumonia, unspecified organism; Z43.3 Encounter for attention to colostomy; R10.9 Unspecified abdominal pain; Z98.84 Bariatric surgery status; Z98.0 Intestinal bypass and anastomosis status; Z51.89 Encounter for other specified aftercare; E44.0 Moderate protein-calorie malnutrition; A04.72 Enterocolitis due to Clostridium difficile, not specified as recurrent
CPT/HCPCS: 36415; 71010; 71045; 74000; 74018; 80048; 80053; 83735; 84100; 84134; 84478; 85025; 87040; 87324; 87493; 87502; 94640; 97110; 97162; 97165; 97535; A4222; B5200; J1650; J1956; J2550; J3370; J3475; J3480; J3490; J7050; J7620; Q0167; S0119; S0181; S5010

== ENCOUNTER 2019-06-06 09:00 | Inpatient (IN) ==
[2019-06-06 12:03] VITALS: BMI 12.4
[2019-06-06] MEDS ORDERED: HumuLIN R SUBCUT PRN (12:54)
[2019-06-06] MEDS ORDERED: POTASSIUM CHL 60 MEQ/NS 0.45% 500 ML IV PRN (12:56)
[2019-06-06] MEDS ORDERED: POTASSIUM CHLORIDE LIQ 20 MEQ UDC PO PRN (12:56)
[2019-06-06] MEDS ORDERED: KLOR-CON PO PRN (12:56)
[2019-06-06] MEDS ORDERED: POTASSIUM CHL 40 MEQ/NS 0.45% 500 ML IV PRN (12:56)
[2019-06-06] MEDS ORDERED: MAALOX or MYLANTA PO PRN (12:56)
[2019-06-06] MEDS ORDERED: K-DUR TAB 20 MEQ PO PRN (12:56)
[2019-06-06] MEDS ORDERED: MICRO K EXTEN CAP 10 MEQ PO PRN (12:56)
[2019-06-06] MEDS ORDERED: K-RIDER 10 MEQ/NS 100 ML 10 MEQ/100 ML BAG IV PRN (12:56)
[2019-06-06] MEDS ORDERED: PHARMACY CONSULT - TPN XX SCH (13:00)
[2019-06-06] MEDS: NORCO 5/325 MG TAB PO PRN ×2 (13:20→21:17)
[2019-06-06] MEDS: VANCOMYCIN HCL PO SCH ×2 (15:35→21:16)
[2019-06-06] MEDS: MAG-OX TAB PO SCH (15:35)
[2019-06-06] MEDS: DUONEB 0.5 MG/3 MG (3 mL) NEB SCH ×2 (16:58→20:45)
[2019-06-06] MEDS ORDERED: DRUG FILTER EXTENSION SET ONE (16:59)
[2019-06-06] MEDS: CLINIMIX 5 %/20 % 1,000 ML with MVI INJ (ADULT) 10 ML, TRACE ELEMENTS INJ 10 ML, TPN EL... IV SCH ×6 (17:00)
[2019-06-06] MEDS: D5 1/2 NS 1000 ML 1,000 ML IV SCH (17:05)
[2019-06-06] MEDS: ZOFRAN INJ 4 MG VIAL IVP PRN (19:32)
[2019-06-06] MEDS ORDERED: LIPOSYN III 20% IV SCH (21:00)
[2019-06-06] MEDS: PROTONIX INJ 40 MG VIAL IVP SCH (21:16)
[2019-06-06] MEDS: PEPCID 20 MG IV PREMIX* 20 MG/50 ML BAG IV SCH (21:17)
[2019-06-07] MEDS: NORCO 5/325 MG TAB PO PRN (01:08)
[2019-06-07] MEDS: D5 1/2 NS 1000 ML 1,000 ML IV SCH (02:47)
[2019-06-07] MEDS: ZOFRAN INJ 4 MG VIAL IVP PRN (02:48)
[2019-06-07] MEDS: VANCOMYCIN HCL PO SCH ×2 (02:48→10:59)
[2019-06-07] MEDS: CLINIMIX 5 %/20 % 1,000 ML with MVI INJ (ADULT) 10 ML, TRACE ELEMENTS INJ 10 ML, TPN EL... IV SCH ×6 (03:25)
[2019-06-07] MEDS: MAG-OX TAB PO SCH (06:13)
--- NOTE | 2019-06-07 06:16 | RAD ---
HISTORYShortness of breathSTUDYCHEST, 1 [id number]/21/2020FINDINGSThe heart is within normal limits in size. The sebastian are normal. The aorta is calcified. The lungs are well inflated. Interstitial lung changes are present bilaterally. Right lower lobe is now clear. There is some residual left lower lobe infiltrate present. Bony thorax is unremarkable. There is a right IJ line with its tip in the right atrium.IMPRESSIONRight lower lobe now clear.Small residual left basilar lung infiltrateElectronically signed by: MARCUS BUCHANAN (Jun 07, 2019 06:15:28)
[2019-06-07 06:56] LABS: BASOPHILS % (AUTO) 0.5 % (0.2-1.0); EOSINOPHILS % (AUTO) 0.6 % (0.9-2.9); HEMATOCRIT 26.7 % (36.0-47.0); HEMOGLOBIN 9.5 g/dL (12.0-16.0); LYMPHOCYTES # (AUTO) 0.7 X10^3/uL (1.3-2.9); LYMPHOCYTES % (AUTO) 8.3 % (21.0-51.0); MEAN CORPUSCULAR HEMOGLOBIN 31.2 pg (27.0-34.0); MEAN CORPUSCULAR HGB CONC 35.6 g/dL (33.0-35.0); MEAN CORPUSCULAR VOLUME 87.5 fL (80.0-100.0); MEAN PLATELET VOLUME 7.5 fL (7.4-11.0); MONOCYTES # (AUTO) 0.7 x10^3/uL (0.3-0.8); MONOCYTES % (AUTO) 8.5 % (0.0-13.0); NEUTROPHILS # (AUTO) 6.6 x10^3/uL (2.2-4.8); NEUTROPHILS % (AUTO) 82.1 % (42.0-75.0); PLATELET COUNT 352 X10^3/uL (150.0-450.0); RED BLOOD COUNT 3.05 X10^6/uL (3.5-5.4); RED CELL DISTRIBUTION WIDTH 17.2 % (11.6-16.5)
[2019-06-07 07:27] LABS: ALANINE AMINOTRANSFERASE 67 Units/L (12-78); ALBUMIN 1.7 g/dL (3.4-5.0); ALKALINE PHOSPHATASE 223 Units/L (46-116); ASPARTATE AMINO TRANSFERASE 46 Units/L (15-37); BLOOD UREA NITROGEN 16 mg/dL (7-18); CALCIUM 8.1 mg/dL (8.5-10.1); CARBON DIOXIDE 22.9 mmol/L (21-32); CHLORIDE 89 mmol/L (98-107); COR CA(FOR HYPOALB) 9.9 mg/dL (8.5-10.1); COR NA(FOR HYPERGLY) 121 mmol/L (136-145); CREATININE 0.47 mg/dL (0.55-1.02); MAGNESIUM 1.7 mg/dL (1.7-2.9); TOTAL PROTEIN 6.3 g/dL (6.4-8.2); eGFR NON BLACK RACES > 60 (>60)
[2019-06-07 07:34] LABS: SODIUM 120 mmol/L (136-145)
[2019-06-07] MEDS: DUONEB 0.5 MG/3 MG (3 mL) NEB SCH ×2 (08:30→12:26)
[2019-06-07] MEDS ORDERED: LASIX IVP ONE (08:31)
[2019-06-07] MEDS ORDERED: MARINOL PO SCH (09:00)
[2019-06-07] MEDS ORDERED: FOLIC ACID TAB 1 MG PO SCH (09:00)
[2019-06-07] MEDS ORDERED: NADOLOL 10 MG PO SCH (09:00)
[2019-06-07] MEDS ORDERED: LOVENOX INJ 40 MG SYR SC SCH (09:00)
[2019-06-07] MEDS ORDERED: CYMBALTA PO SCH (09:00)
[2019-06-07] MEDS ORDERED: DIFLUCAN PO SCH (09:00)
[2019-06-07 09:09] LABS: ABG BASE EXCESS -6.7 mmol/L (-2.0-2.0); ABG HCO3 20.2 mmol/L (22-26)
[2019-06-07] MEDS ORDERED: NS 500 ML IV 500 ML IV ONE ×2 (10:16→14:54)
[2019-06-07 10:41] LABS: BILIRUBIN,URINE NEGATIVE (NEGATIVE); BLOOD/HEMOGLOBIN,URINE 1+ (NEGATIVE); GLUCOSE, URINE NEGATIVE (NEGATIVE); KETONES,URINE NEGATIVE (NEGATIVE); LEUKOCYTE ESTERASE ,URINE NEGATIVE (NEGATIVE); NITRITES,URINE NEGATIVE (NEGATIVE); PH,URINE 6.5 (5.0 - 8.0); PROTEIN,URINE 1+ (NEGATIVE); UROBILINOGEN,URINE NORMAL (NORMAL)
[2019-06-07 10:46] LABS: APPEARANCE,URINE HAZY (CLEAR); COLOR,URINE YELLOW (YELLOW)
[2019-06-07 10:47] LABS: BACTERIA,URINE NEGATIVE /HPF (NEGATIVE); MUCUS,URINE FEW /HPF (NEGATIVE); RBC,URINE 0-2 /HPF (0-3); SQUAMOUS EPITHELIAL CELL,UR NEGATIVE /HPF (NEGATIVE)
[2019-06-07] MEDS: PEPCID 20 MG IV PREMIX* 20 MG/50 ML BAG IV SCH (10:55)
[2019-06-07] MEDS: PROTONIX INJ 40 MG VIAL IVP SCH (10:55)
--- NOTE | 2019-06-07 11:54 | DR.UPDATE ---
H&P Update History and Physical Update: History and Physical reviewed and patient examined. Changes noted: Yes with the following: WAS ADMITTED ON 05/21/19 DUE TO PELVIC ABSCESS. PERFORMED EXPLORATORY LAP, LYSIS OF EXTENSIVE ADHESIONS, GASTRO JEJUNOSTOMY, AND COMPLETE DIVERTING COLOSTOMY ON 05/24/19. SHE WAS ON IV ANTIBIOTICS, IV FLUIDS, AND PERENTERAL TPN FOR SEVERAL DAYS PRIOR TO BEING CHANGED TO SWINGBED. DURING HER SWINGBED VISIT, SHE DEVELOPED A LEFT LOWER LOBE PNEUMONIA AND C DIFF. WBC INCREASED TO 24.0 AND SODIUM ALSO FELL TO 125. SHE WAS HAVING MODERATE SHORTNESS OF BREATH. WE CHANGED PATIENT BACK TO INPATIENT STATUS. TPN, ANTIBIOTICS, PEPCID, PROTONIX, LOVENOX, POTASSIUM AND MAGNESIUM PROTOCOLS, AND HER HOME MEDICATIONS WERE RESUMED. OTHERWISE, WE PLAN TO FOLLOW UP WITH AM LABS AND CONTINUE TO MONITOR. H&P Reviewed: Yes Patient was examined?: Yes
[2019-06-07] MEDS ORDERED: FORTAZ or TAZICEF VIAL INJ 2 G in NS 100 ML IV + SPIKE MINIBAG* 100 ML IV SCH (14:00)
[2019-06-07 14:14] LABS: ABG ALLEN TEST POS; ABG BASE EXCESS -0.3 mmol/L (-2.0-2.0); ABG HCO3 22.6 mmol/L (22-26)
[2019-06-07] MEDS ORDERED: AMIDATE INJ 40 MG VIAL ONE (14:29)
[2019-06-07] MEDS ORDERED: NEO-SYNEPHRINE INJ ONE (14:48)
[2019-06-07] MEDS ORDERED: VERSED ONE (14:48)
[2019-06-07] MEDS ORDERED: QUELICIN (OR ANECTINE) ONE (14:49)
[2019-06-07] MEDS ORDERED: DIPRIVAN PREMIX 1 GRAM IV 1,000 MG/100 ML VIAL IV PRN (15:09)
[2019-06-07] MEDS ORDERED: DIPRIVAN PREMIX 1 GRAM IV 1,000 MG/100 ML VIAL ONE (15:14)
--- NOTE | 2019-06-07 15:17 | DR.UPDATE ---
H&P Update History and Physical Update: History and Physical reviewed and patient examined. Changes noted: NO Yes with the following:pt examined and H&P reviewed. Will intubate patient for transfer to [facility]. H&P Reviewed: Yes Patient was examined?: Yes Procedures (ALL) - Intubation Time out performed: Yes Sedative: etomidate (versed 2mg, etomidate 14mg) paralytic: succinylchline (60mg) Laryngoscope: ira (mac 3 x 1 attempt. Grade 1 view of cords) ET tube size: other (7.0) Tube secured depth: 20 at teeth Tube secured location: teeth Tube placement confirmation: visualized tube passing through cords, equal breath sounds bilaterally, no breath sounds over epigastrium Patient tolerated procedure: Yes Intubation complications: none
--- NOTE | 2019-06-07 15:52 | RAD ---
HISTORYET tube placementSTUDYPortable AP chestCOMPARISONToday at 5 a.m.FINDINGSThere is an endotracheal tube in good position. There are diffuse new or more prominent lower lobe infiltrates. The heart size is normal. There is an unchanged right internal jugular venous catheter with the tip in the right atrium. No significant bony abnormality is demonstrated.IMPRESSIONSatisfactory position of the endotracheal tubeIncreased bilateral infiltrates suggestive of a pneumoniaElectronically signed by: PABLITO LUCAS (Jun 07, 2019 15:51:01)
[2019-06-07 19:44] VITALS: BP 101/57
== END 2019-06-07 16:30 | disposition short-term general hospital (02) | DRG 208 ==
LOC: MED/SURG 09:00 → ICU 06-07 09:35
PROVIDERS: ADMIT Internal Medicine; ATTEND Internal Medicine
DX: A04.72 Enterocolitis due to Clostridium difficile, not specified as recurrent; R26.89 Other abnormalities of gait and mobility; Z93.3 Colostomy status; J18.8 Other pneumonia, unspecified organism; E87.1 Hypo-osmolality and hyponatremia; R06.02 Shortness of breath
CPT/HCPCS: 36415; 36600; 71010; 71045; 80053; 81001; 82803; 83735; 85025; 93005; 94002; 94640; 94660; A4216; A4222; A4618; A7030; B5200; C9113; J0330; J0713; J1650; J2250; J2370; J2405; J3475; J3480; J7050; J7620; Q0167; S0028; S5010